=== PATIENT | female | born 1935 | race Caucasian/White ===

== ENCOUNTER 2016-04-15 02:18 | Emergency (ER) | payer MEDICARE, OTHER ==
[2016-04-15 02:28] VITALS: TEMP 97.2
[2016-04-15] MEDS ORDERED: FAMOTIDINE 20 MG/2 ML VIAL IV STA (02:38)
[2016-04-15] MEDS ORDERED: ONDANSETRON 4 MG/2 ML VIAL IVP STA ×2 (02:38→03:52)
[2016-04-15] MEDS ORDERED: ACETAMINOPHEN IV (For NPO) 1,000 MG in EMPTY BAG 1 BAG IVPB STA (02:38)
[2016-04-15] MEDS ORDERED: SODIUM CHLORIDE 0.9% 1,000 ML IV STA (02:38)
--- NOTE | 2016-04-15 02:41 | ED ---
Nausea/Vomiting/Diarrhea HPI - General Chief complaint: Nausea/Vomiting/Diarrhea Stated complaint: vomiting,viral infection Time Seen by Provider: 04/15/16 02:31 Source: patient, family, RN notes reviewed Mode of arrival: ambulatory Limitations: no limitations - History of Present Illness Initial comments: 80-year-old female presents emergency Department chief complaint nausea vomiting 2 days. Patient saw her her primary care physician this past afternoon who told her was a viral stomach issue. Patient was advised, emergency Department if her symptoms persisted. Patient states that she does have some right-sided abdominal discomfort. Patient did admit to having previous symptoms in the past summer this. Patient denies fever, chills. Patient denies any dysuria, hematuria, diarrhea or constipation. She states she 's had regular bowel movement yesterday. Patient did admit to a prior appendectomy, hysterectomy, aortic aneurysm surgery. Patient states nothing seems to make in the symptoms are better at this time. Patient denies any contacts with some symptoms. Patient denies chest pain, shortness of breath. - Related Data Home Medications Medication Instructions Recorded Confirmed diphenhydrAMINE [Benadryl] 25 mg PO Q12H PRN 06/23/14 10/28/15 Albuterol Inhaler [Ventolin Hfa 1 - 2 puff INHALATION RT-Q6H PRN 09/28/15 Inhaler] Tolterodine [Detrol] 2 mg PO HS 09/28/15 10/28/15 Docusate [Colace] 100 mg PO BID 10/28/15 10/28/15 Fluticasone/Vilanterol [Breo 1 puff INHALATION RT-DAILY PRN 10/28/15 10/28/15 Ellipta 100-25 Mcg Inhaler] Previous Rx's Medication Instructions Recorded Acetaminophen Tab [Tylenol] 650 mg PO Q6HR PRN #0 tab 10/02/15 Aspirin 325 mg PO BID #60 tab 10/02/15 Famotidine [Pepcid] 20 mg PO DAILY #30 tablet 10/02/15 HYDROcodone/APAP 7.5-325MG [[place] 1 tab PO Q6HR PRN #28 tab 11/02/15 7.5-325] Levofloxacin [Levaquin] 500 mg PO Q24H #10 tab 11/02/15 Mag Hydrox/Al Hydrox/Simeth 30 ml PO Q4HR PRN #0 cup 11/02/15 [Maalox] Temazepam [Restoril] 15 mg PO HS #7 cap 11/02/15 metroNIDAZOLE [Flagyl] 500 mg PO TID #30 tab 11/02/15 Ondansetron Odt [Zofran Odt] 4 mg PO Q8HR PRN #10 tab 04/15/16 Allergies Allergy/AdvReac Type Severity Reaction Status Date / Time gluten Allergy Unknown Verified 10/28/15 15:06 codeine AdvReac Nausea & Verified 10/28/15 15:38 Vomiting Review of Systems ROS Statement: Those systems with pertinent positive or pertinent negative responses have been documented in the HPI. ROS Other: All systems not noted in ROS Statement are negative. Past Medical History Past Medical History: Cancer, COPD, GERD/Reflux, Musculoskeletal Disorder, Neurologic Disorder, Osteoarthritis (OA), Pneumonia, Rheumatoid Arthritis (RA) Additional Past Medical History / Comment(s): 09-28-15 FALL/LT HIP FX. 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, diverticulosis, squamous cell skin ca.uti History of Any Multi-Drug Resistant Organisms: None Reported Past Surgical History: Appendectomy, Hysterectomy Additional Past Surgical History / Comment(s): brain aneursym with surgery and angioplasty, aaa repair also, jani cataract(last 09/04/14), skin ca removed, lt breast bx and cyst removed, d&c, colonoscopy, 09-30-15 orif lt hip Past Anesthesia/Blood Transfusion Reactions: No Reported Reaction Past Psychological History: No Psychological Hx Reported Additional Psychological History / Comment(s): PT usually lives AT HOME WITH HER biut has been at [facility] for rehab since recent hip sx. ptr stated only has toe touch orders on LEFT, GETTING PT- USES A WALKER . Smoking Status: Former smoker Past Alcohol Use History: None Reported Additional Past Alcohol Use History / Comment(s): smoked x 30 years 1/2 ppd, quit 24 years ago Past Drug Use History: None Reported - Past Family History Mother Additional Family Medical History / Comment(s): BOWEL PROBLEMS/DIVERTICULAR DIEASE. LIVED TO BE 96 YEARS OLD Father History Unknown: Yes Additional Family Medical History / Comment(s): IN HIS SLEEEP AT AGE 86 Brother(s) Family Medical History: Cancer Additional Family Medical History / Comment(s): THROAT CANCER General Exam Limitations: no limitations General appearance: alert, in no apparent distress Head exam: Present: atraumatic, normocephalic, normal inspection Eye exam: Present: normal appearance, PERRL, EOMI. Absent: scleral icterus, conjunctival injection, periorbital swelling ENT exam: Present: mucous membranes moist Respiratory exam: Present: normal lung sounds bilaterally. Absent: respiratory distress, wheezes, rales, rhonchi, stridor Cardiovascular Exam: Present: regular rate, normal rhythm, normal heart sounds. Absent: systolic murmur, diastolic murmur, rubs, gallop, clicks GI/Abdominal exam: Present: soft, tenderness (Minimal tenderness right side of the abdomen), normal bowel sounds. Absent: distended, guarding, rebound, rigid Back exam: Absent: CVA tenderness (R), CVA tenderness (L) Neurological exam: Present: alert, oriented X3, CN II-XII intact Skin exam: Present: warm, dry, intact, normal color. Absent: rash Course Vital Signs 04/15/16 02:26 Temperature 97.2 F L Pulse Rate 81 Respiratory 20 Rate Blood Pressure 161/87 O2 Sat by Pulse 97 Oximetry Medical Decision Making - Medical Decision Making 80-year-old female presented for nausea vomiting 2 days. Patient seen primary care physician today who advised: Reports from symptoms worsen. Patient's lab work reviewed no acute changes. Patient does have 10 white cells in the urine. Patient's urine will be cultured as she has no symptoms at this time. Patient symptoms are most likely viral nature. Return parameters were discussed. - Lab Data Result diagrams: 04/15/16 03:00 04/15/16 03:00 Lab Results 04/15/16 04/15/16 04/15/16 Range/Units 03:00 03:00 03:00 WBC 6.9 (3.8-10.6) k/uL RBC 4.66 (3.80-5.40) m/uL Hgb 13.8 (11.4-16.0) gm/dL Hct 42.7 (34.0-46.0) % MCV 91.6 (80.0-100.0) fL MCH 29.5 (25.0-35.0) pg MCHC 32.2 (31.0-37.0) g/dL RDW 13.3 (11.5-15.5) % Plt Count 273 (150-450) k/uL Neutrophils % 79 % Lymphocytes % 13 % Monocytes % 6 % Eosinophils % 1 % Basophils % 0 % Neutrophils # 5.5 (1.3-7.7) k/uL Lymphocytes # 0.9 L (1.0-4.8) k/uL Monocytes # 0.4 (0-1.0) k/uL Eosinophils # 0.1 (0-0.7) k/uL Basophils # 0.0 (0-0.2) k/uL Sodium 140 (137-145) mmol/L Potassium 4.5 (3.5-5.1) mmol/L Chloride 105 (98-107) mmol/L Carbon Dioxide 23 (22-30) mmol/L Anion Gap 12 mmol/L BUN 27 H (7-17) mg/dL Creatinine 1.10 H (0.52-1.04) mg/dL Est GFR (MDRD) Af Amer 58 (>60 ml/min/1.73 sqM) Est GFR (MDRD) Non-Af 48 (>60 ml/min/1.73 sqM) Glucose 126 H (74-99) mg/dL Calcium 9.8 (8.4-10.2) mg/dL Total Bilirubin 0.7 (0.2-1.3) mg/dL AST 30 (14-36) U/L ALT 29 (9-52) U/L Alkaline Phosphatase 93 (38-126) U/L Total Protein 7.8 (6.3-8.2) g/dL Albumin 4.2 (3.5-5.0) g/dL Amylase 89 (30-110) U/L Lipase 61 (23-300) U/L Urine Color Yellow Urine Appearance Clear (Clear) Urine pH 6.5 (5.0-8.0) Ur Specific [place] 1.015 (1.001-1.035) Urine Protein 1+ H (Negative) Urine Glucose (UA) Negative (Negative) Urine Ketones Trace H (Negative) Urine Blood Trace H (Negative) Urine Nitrate Negative (Negative) Urine Bilirubin Negative (Negative) Urine Urobilinogen <2.0 (<2.0) mg/dL Ur Leukocyte Esterase Small H (Negative) Urine RBC 3 (0-5) /hpf Urine WBC 10 H (0-5) /hpf Ur Squamous Epith Cells 1 (0-4) /hpf Urine Bacteria Rare H (None) /hpf Hyaline Casts 2 (0-2) /lpf Urine Mucus Rare H (None) /hpf Disposition Clinical Impression: Nausea & vomiting, Constipation Disposition: HOME SELF-CARE Condition: Stable Instructions: Acute Nausea and Vomiting (ED) Additional Instructions: Please return to the Emergency Department if symptoms worsen or any other concerns. Prescriptions: Ondansetron Odt [Zofran Odt] 4 mg PO Q8HR PRN #10 tab PRN Reason: Nausea Time of Disposition: 03:56
[2016-04-15 03:20] LABS: Basophils % (A) 0 %; CH 30.3; CHCM 33.2; Eosinophils # (A) 0.1 k/uL (0-0.7); Eosinophils % (A) 1 %; HCT 42.7 % (34.0-46.0); HGB 13.8 gm/dL (11.4-16.0); Luc # (Auto) 0.08; Luc % (Auto) 1; Lymphocytes # (A) 0.9 k/uL (1.0-4.8); Lymphocytes % (A) 13 %; MCH 29.5 pg (25.0-35.0); MCHC 32.2 g/dL (31.0-37.0); MCV 91.6 fL (80.0-100.0); Mean Platelet Volume 6.4; Monocytes # (A) 0.4 k/uL (0-1.0); Monocytes % (A) 6 %; Neutrophils # (A) 5.5 k/uL (1.3-7.7); Neutrophils % (A) 79 %; RBC 4.66 m/uL (3.80-5.40); RDW 13.3 % (11.5-15.5); WBC 6.9 k/uL (3.8-10.6); WBC (Perox) 7.42
[2016-04-15 03:21] LABS: Appearance,Urine Clear (Clear); Bacteria,Urine Rare /hpf; Bilirubin,Urine Negative (Negative); Glucose,Urine (UA) Negative (Negative); Ketones,Urine Trace (Negative); Leukocyte Esterase,Urine Small (Negative); Mucus,Urine Rare /hpf; Nitrite,Urine Negative (Negative); PH, Urine 6.5 (5.0-8.0); Particle Count 1642; Protein,Urine 1+ (Negative); RBC,Urine 3 /hpf (0-5); Specific Gravity,Urine 1.015 (1.001-1.035); Squamous Epithelial Cell,Urine 1 /hpf (0-4); UA Billing (MACRO vs. MICRO) MICRO; Urobilinogen,Urine <2.0 mg/dL (<2.0); WBC,Urine 10 /hpf (0-5)
[2016-04-15 03:24] LABS: Calcium 9.8 mg/dL (8.4-10.2); Potassium 4.5 mmol/L (3.5-5.1); Total Bilirubin 0.7 mg/dL (0.2-1.3); Total Protein 7.8 g/dL (6.3-8.2)
--- NOTE | 2016-04-15 03:36 | XR ---
EXAMINATION TYPE: XR KUB DATE OF EXAM: 04/15/2016 3:28 AM COMPARISON: 10/31/2015 HISTORY: Nausea and vomiting and diarrhea TECHNIQUE: 2 views FINDINGS: There is no sign of intestinal obstruction or pneumoperitoneum. Fecal pattern is normal. Th ere is no sign of a mass. There are no pathologic calcifications over the kidneys. Lung bases are lj ar of consolidation. IMPRESSION: Nonacute abdomen. No change.
[2016-04-15] MEDS ORDERED: MORPHINE SULFATE 4 MG/ML SYRINGE IVP STA (03:52)
[2016-04-15] MEDS ORDERED: METOCLOPRAMIDE 5 MG/ML 2 ML VIAL IVP STA (03:53)
[2016-04-15] MEDS ORDERED: SODIUM CHLORIDE 0.9% 1,000 ML IV ONE (03:53)
[2016-04-15 04:16] VITALS: PULSE 70; RESP 14
[2016-04-15 05:11] VITALS: BP 140/80
== END 2016-04-15 05:48 | disposition home or self-care (01) ==
LOC: EC 02:18
DX: R11.2 Nausea with vomiting, unspecified (principal); K59.00 Constipation, unspecified; J44.9 Chronic obstructive pulmonary disease, unspecified; M06.9 Rheumatoid arthritis, unspecified; K21.9 Gastro-esophageal reflux disease without esophagitis; M19.90 Unspecified osteoarthritis, unspecified site; Z79.82 Long term (current) use of aspirin; Z79.51 Long term (current) use of inhaled steroids; Z79.899 Other long term (current) drug therapy; Z87.891 Personal history of nicotine dependence
CPT/HCPCS: 36415; 80053; 82150; 83690; 85025; 81001; 74000; 99284; 96374; 96375 ×4; 96376; J2270; J2765; J2405; J0131

== ENCOUNTER → 2016-10-07 | Outpatient (CLI) | payer MEDICARE, OTHER ==
--- NOTE | 2016-10-07 12:24 | FL ---
EXAMINATION TYPE: FL barium swallow w video DATE OF EXAM: 10/07/2016 MODIFIED SWALLOW / DEGLUTITION STUDY CLINICAL HISTORY: 81-year-old female with dysphagia, trouble swallowing. Prior intracranial aneurysm with coiling. TECHNIQUE: Deglutition study is performed utilizing thin liquid barium, honey and nectar thick liqui d barium, barium thick applesauce, and barium coated cracker. COMPARISON: None. FINDINGS: The oral and pharyngeal phases show satisfactory initiation and propagation with all modalities teste d. Normal mastication is seen with solid modalities tested though the patient is partially dentulous . Mild intermittent cricopharyngeus spasm being is noted. In addition, there is anterior cervical spo ndylosis along with grade 1 anterolisthesis at C3-C4 and C4-C5. There is no evidence of penetration o r aspiration with any modality tested. No significant pharyngeal residue was appreciated. IMPRESSION: 1. No penetration or aspiration seen. 2. Mild intermittent CP spasming along with multilevel cervical spondylosis. 3. Please refer to speech therapist notes for further details if necessary.
== END | disposition home or self-care (01) ==
LOC: RADFLMAIN 11:34
PROVIDERS: ATTEND Family Medicine
DX: R13.10 Dysphagia, unspecified (principal)
CPT/HCPCS: 74230

== ENCOUNTER 2017-01-04 08:51 | Emergency (ER) | payer MEDICARE, OTHER ==
--- NOTE | 2017-01-04 09:21 | ED ---
Fall HPI - General Chief Complaint: Fall Stated Complaint: Fall-Pelvis Pain Time Seen by Provider: 01/04/17 09:04 Source: patient, RN notes reviewed Mode of arrival: wheelchair Limitations: no limitations - History of Present Illness Initial Comments: 81-year-old female presents emergency Department chief complaint of fall. Patient states she fell on Monday because she tripped and lost her balance. Patient states that she fell in the kitchen. She thought her left side and she' s had a prior pelvis fracture. She states she does feel pulse exactly the same. Patient denies any head injury no LOC. She states she has a small abrasion to her right elbow with no discomfort. Patient states she was easily intubated is very sore. - Related Data Home Medications Medication Instructions Recorded Confirmed diphenhydrAMINE [Benadryl] 25 mg PO BID 06/23/14 01/04/17 Tiotropium 18 Mcg/Puff [Spiriva] 1 cap INHALATION RT-DAILY 01/04/17 01/04/17 Previous Rx's Medication Instructions Recorded Temazepam [Restoril] 15 mg PO HS #7 cap 11/02/15 Allergies Allergy/AdvReac Type Severity Reaction Status Date / Time gluten Allergy Unknown Verified 01/04/17 09:29 codeine AdvReac Nausea & Verified 01/04/17 09:29 Vomiting Review of Systems ROS Statement: Those systems with pertinent positive or pertinent negative responses have been documented in the HPI. ROS Other: All systems not noted in ROS Statement are negative. Past Medical History Past Medical History: Cancer, COPD, GERD/Reflux, Musculoskeletal Disorder, Neurologic Disorder, Osteoarthritis (OA), Pneumonia, Rheumatoid Arthritis (RA) Additional Past Medical History / Comment(s): 09-28-15 FALL/LT HIP FX. 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, diverticulosis, squamous cell skin ca.uti History of Any Multi-Drug Resistant Organisms: None Reported Past Surgical History: Appendectomy, Hysterectomy Additional Past Surgical History / Comment(s): brain aneursym with surgery and angioplasty, aaa repair also, jani cataract(last 09/04/14), skin ca removed, lt breast bx and cyst removed, d&c, colonoscopy, 09-30-15 orif lt hip Past Anesthesia/Blood Transfusion Reactions: No Reported Reaction Past Psychological History: No Psychological Hx Reported Smoking Status: Former smoker Past Alcohol Use History: None Reported Past Drug Use History: None Reported - Past Family History Mother Additional Family Medical History / Comment(s): BOWEL PROBLEMS/DIVERTICULAR DIEASE. LIVED TO BE 96 YEARS OLD Father History Unknown: Yes Additional Family Medical History / Comment(s): IN HIS SLEEEP AT AGE 86 Brother(s) Family Medical History: Cancer Additional Family Medical History / Comment(s): THROAT CANCER General Exam Limitations: physical limitation General appearance: alert, in no apparent distress Neck exam: Present: normal inspection, full ROM. Absent: tenderness, meningismus, lymphadenopathy Respiratory exam: Present: normal lung sounds bilaterally. Absent: respiratory distress, wheezes, rales, rhonchi, stridor Cardiovascular Exam: Present: regular rate, normal rhythm, normal heart sounds. Absent: systolic murmur, diastolic murmur, rubs, gallop, clicks GI/Abdominal exam: Present: soft, normal bowel sounds. Absent: distended, tenderness, guarding, rebound, rigid Extremities exam: Present: other (Small abrasion to the right elbow with no tenderness and full range of motion. There is mild dorsal left side of the pelvis left hip region mild discomfort with logroll there is no shortening or rotation neurovascular intact lower extremities) Back exam: Present: full ROM. Absent: tenderness Neurological exam: Present: alert, oriented X3, CN II-XII intact, reflexes normal. Absent: motor sensory deficit Course Vital Signs 01/04/17 08:59 Temperature 97.5 F L Pulse Rate 90 Respiratory 20 Rate Blood Pressure 129/85 O2 Sat by Pulse 96 Oximetry Medical Decision Making - Medical Decision Making 81-year-old female presented emergency from for left hip pain. Patient had a fall. There is no acute fractures or old surgical fixation noted. Patient will follow-up with primary physician and orthopedic doctor. Return parameters were discussed. Disposition Clinical Impression: Fall, Contusion, hip, Elbow abrasion Disposition: HOME SELF-CARE Condition: Stable Instructions: Contusion in Adults (ED) Additional Instructions: Please return to the Emergency Department if symptoms worsen or any other concerns. Referrals: Justyn Johnson DO [Primary Care Provider] - 1-2 days Time of Disposition: 10:10
--- NOTE | 2017-01-04 09:28 | XR ---
EXAMINATION TYPE: XR Hip LT and AP Pelvis DATE OF EXAM: 01/04/2017 COMPARISON: 09/27/2016 HISTORY: Left hip pain after fall 2 days ago TECHNIQUE: A single AP view of the pelvis is obtained. Two views of the left hip are obtained. FINDINGS: There is no acute fracture/dislocation evident in the pelvis. The hip and sacroiliac join ts appear symmetric and unremarkable. The overlying soft tissue appears unremarkable. Two views of left hip show no acute fracture or dislocation. There is redemonstration of 3 subtle med ullary rods transfixing a previously seen left femoral neck fracture. No hardware fracture, surroundi ng lucency, or new osseous fracture is seen. There is also redemonstration of an unchanged fracture o f the inferior left pubic ramus in comparison to exam of 09/28/2015. Bilateral femoral acetabular oste oarthropathy, left greater than right is demonstrated as subchondral cysts, acetabular sclerosis and joint space narrowing. Degenerative changes are also seen at the lumbosacral junction and sacroiliac joints. No focal lytic or sclerotic lesion seen in the proximal left femur. The overlying soft tiss ue is unremarkable. IMPRESSION: 1. There is no acute fracture or dislocation in the pelvis or left hip. 2. Old healed and surgically fixated fractures of the inferior left pubic ramus and left femoral neck . 3. Bilateral femoral acetabular osteoarthropathy, left greater than right, at least moderate in degre e.
[2017-01-04 10:31] VITALS: BP 150/85; PULSE 89; RESP 18; TEMP 98
== END 2017-01-04 10:31 | disposition home or self-care (01) ==
LOC: EC 08:51
DX: S70.02XA Contusion of left hip, initial encounter (principal); S50.311A Abrasion of right elbow, initial encounter; J44.9 Chronic obstructive pulmonary disease, unspecified; Z85.828 Personal history of other malignant neoplasm of skin; Z87.891 Personal history of nicotine dependence; Z79.899 Other long term (current) drug therapy; Z88.5 Allergy status to narcotic agent; Z91.018 Allergy to other foods; Y92.090 Kitchen in other non-institutional residence as the place of occurrence of the external cause; W01.0XXA Fall on same level from slipping, tripping and stumbling without subsequent striking against object, initial encounter
CPT/HCPCS: 73502; 99283

== ENCOUNTER → 2017-04-06 | Outpatient (CLI) | payer MEDICARE ==
--- NOTE | 2017-04-06 15:45 | CT ---
EXAMINATION TYPE: CT brain wo con DATE OF EXAM: 04/06/2017 COMPARISON: 08/15/2015 INDICATION: Unsteady gait with falls. DLP: 1045.4 mGycm, Automated exposure control for dose reduction was used. CONTRAST: None CT of the brain is performed utilizing 3 mm thick sections through the posterior fossa and 3 mm thick sections through the remaining calvarium. Study is performed within 24 hours of arrival to the hosp ital. Postcraniotomy changes are evident in the right temporal region and right frontal parietal regions. There is beam hardening artifact from a aneurysm clip within the central region. This was present pre viously. No abnormal hyperdensity is present to suggest an acute intracranial hemorrhage. No mass lesion is evident. No acute infarcts are evident. Periventricular white matter hypodensity is present, likely on the bas is of chronic white matter ischemic changes. The pattern and distribution is similar to 08/15/2015. Ventricles and sulci are mildly prominent. for the patient age. Paranasal sinuses and mastoid air cells within the [id number] are clear. IMPRESSIONS: 1. Postsurgical changes including aneurysm clip and craniotomy defects, stable from 2016. 2. Periventricular white matter hypodensity, likely on the basis of chronic white matter ischemic brian nges.
== END | disposition home or self-care (01) ==
LOC: RADCTMAIN 14:53
PROVIDERS: ATTEND Family Medicine
DX: R90.82 White matter disease, unspecified (principal); R93.0 Abnormal findings on diagnostic imaging of skull and head, not elsewhere classified; Z98.890 Other specified postprocedural states
CPT/HCPCS: 70450

== ENCOUNTER 2017-05-30 09:32 | Emergency (ER) | payer MEDICARE ==
--- NOTE | 2017-05-30 10:33 | ED ---
General Adult HPI - General Chief complaint: Extremity Problem,Nontraumatic Stated complaint: Leg pain/numbness rt arm Time Seen by Provider: 05/30/17 10:01 Source: patient, family Mode of arrival: wheelchair - History of Present Illness Initial comments: 81-year-old female presents with for lower extremity pain x 1 year. She notices the pain after walking for 15 minutes, which has been worsening in the past few months. Laying in bed, she has no pain right now. She was diagnosed with PAD by her head animal keeper. This issue seemed to start when she left PT rehab for bilateral hip fractures a year ago but has become progressively worse in the past 3 months. She is also complaining of a numbness feeling in the right arm which has been present x 2 days. She has full strength, ROM, and sensation other than the numb feeling. She often has numbness in the upper extremities with activity. She also has extensive spinal history including buldging discs and spinal stenosis. All doctor podiatric medicine intact. - Related Data Home Medications Medication Instructions Recorded Confirmed diphenhydrAMINE [Benadryl] 25 mg PO BID 06/23/14 05/30/17 Tiotropium 18 Mcg/Puff [Spiriva] 1 cap INHALATION RT-DAILY PRN 01/04/17 05/30/17 Previous Rx's Medication Instructions Recorded Temazepam [Restoril] 15 mg PO HS #7 cap 11/02/15 Allergies Allergy/AdvReac Type Severity Reaction Status Date / Time gluten Allergy Unknown Verified 05/30/17 10:01 codeine AdvReac Nausea & Verified 05/30/17 10:01 Vomiting Review of Systems ROS Statement: Those systems with pertinent positive or pertinent negative responses have been documented in the HPI. ROS Other: All systems not noted in ROS Statement are negative. Past Medical History Past Medical History: Cancer, COPD, GERD/Reflux, Musculoskeletal Disorder, Neurologic Disorder, Osteoarthritis (OA), Pneumonia, Rheumatoid Arthritis (RA) Additional Past Medical History / Comment(s): 09-28-15 FALL/LT HIP FX. 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, diverticulosis, squamous cell skin ca.uti History of Any Multi-Drug Resistant Organisms: None Reported Past Surgical History: Appendectomy, Hysterectomy Additional Past Surgical History / Comment(s): brain aneursym with surgery and angioplasty, aaa repair also, jani cataract(last 09/04/14), skin ca removed, lt breast bx and cyst removed, d&c, colonoscopy, 09-30-15 orif lt hip Past Anesthesia/Blood Transfusion Reactions: No Reported Reaction Past Psychological History: No Psychological Hx Reported Smoking Status: Former smoker Past Alcohol Use History: None Reported Past Drug Use History: None Reported - Past Family History Mother Additional Family Medical History / Comment(s): BOWEL PROBLEMS/DIVERTICULAR DIEASE. LIVED TO BE 96 YEARS OLD Father History Unknown: Yes Additional Family Medical History / Comment(s): IN HIS SLEEEP AT AGE 86 Brother(s) Family Medical History: Cancer Additional Family Medical History / Comment(s): THROAT CANCER General Exam Limitations: no limitations General appearance: alert, in no apparent distress Head exam: Present: atraumatic Eye exam: Present: normal appearance, PERRL, EOMI. Absent: scleral icterus, conjunctival injection, periorbital swelling ENT exam: Present: normal exam, mucous membranes moist Respiratory exam: Present: normal lung sounds bilaterally. Absent: respiratory distress, wheezes, rales, rhonchi, stridor Cardiovascular Exam: Present: regular rate, normal rhythm, normal heart sounds. Absent: systolic murmur, diastolic murmur, rubs, gallop, clicks Extremities exam: Present: tenderness (tenderness in BLE with palpation), normal capillary refill, calf tenderness. Absent: pedal edema, joint swelling Neurological exam: Present: alert, oriented X3, CN II-XII intact Psychiatric exam: Present: normal affect, normal mood Course Vital Signs 05/30/17 05/30/17 09:36 10:54 Temperature 97.1 F L Pulse Rate 96 69 Respiratory 18 16 Rate Blood Pressure 156/77 151/80 O2 Sat by Pulse 96 96 Oximetry Medical Decision Making - Medical Decision Making 81 -year-old female presents for bilateral lower extremity pain with activity. She is currently comfortable with no pain while lying on the bed. This pain has been ongoing and worsening for the past 3 months. Attempted to locate lower extremity pulses with Doppler with little success. Dr. Wilson was consulted and said this could be due to chronic pathology of peripheral artery disease. Basic labs to determine GFR for ordering a CTA. GFR was insufficient to perform CTA. Dr. Young was consulted and said to have the patient come to Dr. Frazier office from the ER. - Lab Data Result diagrams: 05/30/17 10:45 05/30/17 10:45 Lab Results 05/30/17 05/30/17 Range/Units 10:45 10:45 WBC 6.4 (3.8-10.6) k/uL RBC 4.26 (3.80-5.40) m/uL Hgb 11.5 (11.4-16.0) gm/dL Hct 36.5 (34.0-46.0) % MCV 85.9 (80.0-100.0) fL MCH 27.0 (25.0-35.0) pg MCHC 31.5 (31.0-37.0) g/dL RDW 13.7 (11.5-15.5) % Plt Count 394 (150-450) k/uL Neutrophils % 62 % Lymphocytes % 26 % Monocytes % 7 % Eosinophils % 4 % Basophils % 0 % Neutrophils # 3.9 (1.3-7.7) k/uL Lymphocytes # 1.7 (1.0-4.8) k/uL Monocytes # 0.5 (0-1.0) k/uL Eosinophils # 0.2 (0-0.7) k/uL Basophils # 0.0 (0-0.2) k/uL Sodium 142 (137-145) mmol/L Potassium 5.0 (3.5-5.1) mmol/L Chloride 106 (98-107) mmol/L Carbon Dioxide 25 (22-30) mmol/L Anion Gap 11 mmol/L BUN 34 H (7-17) mg/dL Creatinine 1.35 H (0.52-1.04) mg/dL Est GFR (MDRD) Af Amer 46 (>60 ml/min/1.73 sqM) Est GFR (MDRD) Non-Af 38 (>60 ml/min/1.73 sqM) Glucose 93 (74-99) mg/dL Calcium 9.8 (8.4-10.2) mg/dL Total Bilirubin 0.3 (0.2-1.3) mg/dL AST 30 (14-36) U/L ALT 23 (9-52) U/L Alkaline Phosphatase 101 (38-126) U/L Total Protein 7.9 (6.3-8.2) g/dL Albumin 3.8 (3.5-5.0) g/dL Disposition Clinical Impression: PAD (peripheral artery disease) Disposition: HOME SELF-CARE Instructions: Peripheral Artery Disease (ED) Referrals: Justyn Johnson DO [Primary Care Provider] - 1-2 days Time of Disposition: 13:15
[2017-05-30] MEDS ORDERED: SODIUM CHLORIDE 0.9% 500 ML IV STA (10:49)
[2017-05-30 11:02] LABS: Basophils % (A) 0 %; Eosinophils # (A) 0.2 k/uL (0-0.7); Eosinophils % (A) 4 %; HCT 36.5 % (34.0-46.0); HGB 11.5 gm/dL (11.4-16.0); Lymphocytes # (A) 1.7 k/uL (1.0-4.8); Lymphocytes % (A) 26 %; MCHC 31.5 g/dL (31.0-37.0); MCV 85.9 fL (80.0-100.0); Mean Platelet Volume 6.6; Monocytes # (A) 0.5 k/uL (0-1.0); Monocytes % (A) 7 %; Neutrophils # (A) 3.9 k/uL (1.3-7.7); Neutrophils % (A) 62 %; Platelet Count 394 k/uL (150-450); RBC 4.26 m/uL (3.80-5.40); RDW 13.7 % (11.5-15.5); WBC 6.4 k/uL (3.8-10.6)
[2017-05-30 11:17] LABS: Albumin 3.8 g/dL (3.5-5.0); Calcium 9.8 mg/dL (8.4-10.2); Total Bilirubin 0.3 mg/dL (0.2-1.3); Total Protein 7.9 g/dL (6.3-8.2)
[2017-05-30 13:24] VITALS: BP 143/75; PULSE 78; RESP 18; TEMP 97.3
== END 2017-05-30 13:28 | disposition home or self-care (01) ==
LOC: EC 09:32
DX: I73.9 Peripheral vascular disease, unspecified (principal); Z85.828 Personal history of other malignant neoplasm of skin; Z87.891 Personal history of nicotine dependence; Z79.899 Other long term (current) drug therapy; Z88.5 Allergy status to narcotic agent; Z88.8 Allergy status to other drugs, medicaments and biological substances
CPT/HCPCS: 36415; 80053; 85025; 96360; 99283

== ENCOUNTER 2017-06-13 08:02 | Day surgery (SDC) | payer MEDICARE ==
[2017-06-08 08:50] VITALS: BMI 19.5
[~2017-06-13 08:02] MED LIST: ALPRAZolam 0.25 MG TAB PO PRN; ASPIRIN 325 MG TAB PO STA; SODIUM CHLORIDE 0.9% 1,000 ML in EMPTY BAG 1 BAG IV ONE
[2017-06-13 08:31] VITALS: PULSE 85; RESP 20; TEMP 97.6
[2017-06-13] MEDS ORDERED: MIDAZOLAM 2 MG/2 ML VIAL IV ONE (10:23)
[2017-06-13] MEDS ORDERED: MORPHINE SULFATE 4 MG/ML SYRINGE IV ONE (10:23)
[2017-06-13] MEDS ORDERED: LIDOCAINE 2% INJ 20 MG/ML SQ ONE (10:25)
[2017-06-13] MEDS ORDERED: SODIUM CHLORIDE 0.9% 1,000 ML IV ONE (10:29)
[2017-06-13] MEDS ORDERED: IODIXANOL 320 MG/ML 100 ML INTRAARTER ONE (10:39)
[2017-06-13] MEDS ORDERED: SODIUM CHLORIDE 0.9% 1,000 ML IV SCH (11:30)
--- NOTE | 2017-06-13 11:31 | P.OP ---
Date of Procedure: 06/13/17 Preoperative Diagnosis: Disabling claudication bilateral lower extremities Postoperative Diagnosis: Same Procedure(s) Performed: Aortogram with bilateral lower extremity runoff under ultrasound guided femoral access Anesthesia: local Surgeon: Gray Martin Estimated Blood Loss (ml): 5 Pathology: none sent Condition: stable Disposition: other Indications for Procedure: This is a 81-year-old female with history of chronic back issues presented to the office with complaints of increased lower extremity pain especially with ambulation which was different from her previous pain in her back. She states this has been ongoing and worsening over the last several years and wants some kind of intervention to help with the pain. She underwent arterial Doppler which demonstrated noncompressibility of the vessels. Due to her complaints of pain with ambulation especially in the thighs and lower legs after only 100-200 yards it was determined she needed a aortogram with runoff to further delineate any vascular issues. Operative Findings: Aorta: Patent without evidence of atherosclerotic disease. Iliac: Bilateral iliacs are patent without evidence of atherosclerotic disease or stenosis. Femoral: Bilateral common, superficial and profunda arteries were patent with minimal evidence of atherosclerotic disease without stenosis. Popliteal: Bilateral popliteal arteries are patent without any evidence of stenosis or atherosclerotic disease. Tibial: Bilateral TPT trunk and anterior and posterior tibial arteries were patent with two-vessel runoff to the ankles and feet. Description of Procedure: After written informed consent was obtained the patient all risks benefits competitions were described patient was brought to the [employer] and laid in a supine position. The area of the groins were prepped and draped in usual sterile fashion. Timeout was performed and all fashion with all parties in agreement. Utilizing ultrasound right common femoral artery was visualized and shown to be patent with minimal disease. Patient was administered local anesthetic overlying the common femoral artery along with Versed and morphine for moderate sedation. Utilizing a multipurpose needle the artery was cannulated under direct visualization of ultrasound and utilizing Seldinger technique a 5-Thai sheath was placed in normal fashion. Guidewire was then placed into the aorta followed by a pigtail catheter. Aortogram was then obtained followed by runoffs down the legs. Once completed pigtail catheter was removed as well as the sheath and pressure was placed for hemostasis. Hemostasis was assured. The area was cleansed and dressings were placed. Patient tolerated the procedure well and was sent to PACU for recovery. Plan - Discharge Summary Discharge Rx Participant: No New Discharge Prescriptions: No Action diphenhydrAMINE [Benadryl] 25 mg PO BID Temazepam [Restoril] 15 mg PO HS #7 cap Tiotropium 18 Mcg/Puff [Spiriva] 1 cap INHALATION RT-DAILY PRN PRN Reason: Shortness Of Breath Discharge Medication List diphenhydrAMINE [Benadryl] 25 mg PO BID 06/23/14 [History] Temazepam [Restoril] 15 mg PO HS #7 cap 11/02/15 [Rx] Tiotropium 18 Mcg/Puff [Spiriva] 1 cap INHALATION RT-DAILY PRN 01/04/17 [History ] Follow up Appointment(s)/Referral(s): Gray Martin DO [STAFF PHYSICIAN] - 1 Week Justyn Johnson DO [Primary Care Provider] - 1 Week Discharge Disposition: HOME SELF-CARE
[2017-06-13] MEDS ORDERED: NAPROXEN 250 MG TAB PO STA (11:33)
[2017-06-13 11:55] LABS: Glucose,Whole Blood 87 mg/dL (75-99)
--- NOTE | 2017-06-13 13:11 | IR ---
EXAMINATION TYPE: IR angio abdominal w runoff DATE OF EXAM: 06/13/2017 COMPARISON: NONE HISTORY: Arteriogram. Fluoroscopy was provided to the referring clinician. 0.7 minutes provided.
[2017-06-13 17:30] VITALS: BP 142/62
== END 2017-06-13 16:30 | disposition home or self-care (01) ==
LOC: CATHCVL 08:02
PROVIDERS: ATTEND Surgery
DX: I70.213 Atherosclerosis of native arteries of extremities with intermittent claudication, bilateral legs (principal); J44.9 Chronic obstructive pulmonary disease, unspecified; I10 Essential (primary) hypertension; N28.9 Disorder of kidney and ureter, unspecified; M81.0 Age-related osteoporosis without current pathological fracture; G20 Parkinson's disease; M06.9 Rheumatoid arthritis, unspecified; Z87.891 Personal history of nicotine dependence; Z79.899 Other long term (current) drug therapy; Z88.5 Allergy status to narcotic agent; Z91.018 Allergy to other foods
CPT/HCPCS: 36200; 75625; 75716; 76937; C1769 ×3; C1894; J2001; J2250; J2270; Q9967

== ENCOUNTER → 2017-08-08 | Outpatient (CLI) | payer MEDICARE ==
[2017-08-08 11:18] LABS: HCT 40.9 % (34.0-46.0); HGB 12.7 gm/dL (11.4-16.0); MCH 26.7 pg (25.0-35.0); MCHC 31.1 g/dL (31.0-37.0); MCV 85.8 fL (80.0-100.0); Mean Platelet Volume 6.5; Platelet Count 386 k/uL (150-450); RBC 4.76 m/uL (3.80-5.40); RDW 14.1 % (11.5-15.5); WBC 6.9 k/uL (3.8-10.6)
== END | disposition home or self-care (01) ==
LOC: LABWHC1 10:55
PROVIDERS: ATTEND Physician Assistant
DX: M43.16 Spondylolisthesis, lumbar region (principal); R53.1 Weakness
CPT/HCPCS: 36415; 80048; 85027

== ENCOUNTER → 2017-08-12 | Outpatient (CLI) | payer MEDICARE ==
--- NOTE | 2017-08-12 17:54 | MR ---
EXAMINATION TYPE: MR lumbar spine wo con DATE OF EXAM: 08/12/2017 COMPARISON: 02/11/2014 HISTORY: Low back pain TECHNIQUE: T1 and T2 axial and sagittal images of the lumbar spine are submitted. FINDINGS: There is no abnormal signal seen within the visualized spinal cord or paraspinal soft tissu es. There is mild aneurysmal dilation of the upper abdominal aorta measuring 3.6 cm. Subcentimeter re nal cysts are noted. Heterogeneous marrow signal likely in the basis of marrow reconversion. At T12-L1 there is degenerative disc disease. No canal stenosis or foraminal encroachment. At L1-2 there is degenerative disc disease and facet arthropathy but no canal stenosis or foraminal e ncroachment. At L2-3 there is degenerative disc disease and facet arthropathy but no canal stenosis. Mild bilatera l foraminal encroachment. Schmorl's nodes involving L3. At L3-4 there is degenerative disc disease and moderate facet arthropathy with ligamentum flavum hype rtrophy. Circumferential disc bulging with mild bilateral foraminal encroachment. No Canal stenosis. At L4-5 there is grade 1 anterolisthesis with severe facet arthropathy and ligamentum flavum hypertro phy. Diffuse disc bulging results in moderate central stenosis. Bulging is greater laterally right wi th severe right-sided foraminal encroachment and compression of the nerve root within the neural fora susi. Mild left-sided encroachment. At L5-S1 there is severe degenerative disc disease with discogenic marrow changes and advanced facet arthropathy. Mild bilateral foraminal encroachment. Suspect a small extruded disc fragment along the superior margin of the S1 segment paracentrally to left with mild impression of the thecal sac. Best noted on sagittal image 7 sequence 201 and axial image 3 sequence 401. IMPRESSION: 1. Multilevel degenerative disc disease and facet arthropathy with grade 1 anterolisthesis L4 on L5 w hich appears to be degenerative secondary to advanced facet arthropathy. Disc bulging and hypertrophi c changes at this level result in moderate canal stenosis. Greater lateral disc bulging or protrusion with hypertrophic changes result in severe right-sided foraminal encroachment and compression of the nerve root within the neural foramina. 2. A small extruded disc herniation L5-S1 paracentral to the left suspected as discussed above. 3. 3.6 cm proximal abdominal aortic aneurysm.
== END | disposition home or self-care (01) ==
LOC: RADMRIMAIN 14:13
PROVIDERS: ATTEND Orthopaedic Surgery Orthopaedic Surgery of the Spine
DX: M48.061 Spinal stenosis, lumbar region without neurogenic claudication (principal); M51.27 Other intervertebral disc displacement, lumbosacral region; M43.16 Spondylolisthesis, lumbar region; M51.36 Other intervertebral disc degeneration, lumbar region; M46.96 Unspecified inflammatory spondylopathy, lumbar region
CPT/HCPCS: 72148

== ENCOUNTER 2017-10-09 11:29 | Inpatient (IN) | payer MEDICARE ==
[2017-10-09] MEDS ORDERED: ONDANSETRON 4 MG/2 ML VIAL IVP STA (12:11)
[2017-10-09] MEDS ORDERED: SODIUM CHLORIDE 0.9% 1,000 ML IV STA ×2 (12:11)
[2017-10-09] MEDS ORDERED: HYDROmorphone 0.5 MG/0.5 ML SYRINGE IVP STA (12:12)
[2017-10-09 12:39] LABS: Basophils % (A) 0 %; Eosinophils # (A) 0.3 k/uL (0-0.7); Eosinophils % (A) 3 %; HCT 38.4 % (34.0-46.0); HGB 12.5 gm/dL (11.4-16.0); Lymphocytes # (A) 2.9 k/uL (1.0-4.8); Lymphocytes % (A) 35 %; MCH 27.5 pg (25.0-35.0); MCHC 32.6 g/dL (31.0-37.0); MCV 84.5 fL (80.0-100.0); Mean Platelet Volume 6.8; Monocytes # (A) 0.6 k/uL (0-1.0); Monocytes % (A) 8 %; Neutrophils # (A) 4.3 k/uL (1.3-7.7); Neutrophils % (A) 52 %; Platelet Count 364 k/uL (150-450); RBC 4.54 m/uL (3.80-5.40); RDW 14.8 % (11.5-15.5); WBC 8.3 k/uL (3.8-10.6)
[2017-10-09 12:52] LABS: Calcium 9.8 mg/dL (8.4-10.2); Potassium 5.4 mmol/L (3.5-5.1); Total Bilirubin 0.3 mg/dL (0.2-1.3); Total Protein 8.1 g/dL (6.3-8.2)
--- NOTE | 2017-10-09 13:22 | XR ---
EXAMINATION TYPE: XR KUB DATE OF EXAM: 10/09/2017 1:13 PM CLINICAL HISTORY: Abdominal pain, nausea and vomiting. TECHNIQUE: Single supine KUB image of the abdomen is obtained. COMPARISON: None. FINDINGS: Few small bowel loops are upper limits of normal measuring 3.0 cm. Postsurgical changes are noted of the upper abdomen. Stomach is air-filled. No dilated large bowel. Multiple phlebolith withi n the pelvis. There is a mild levoscoliotic curvature of the lumbar spine. Surgical fixation of the l eft femur is noted. IMPRESSION: Few small bowel loops that are upper limits of normal suggesting ileus. No gross evidence of obstruction.
--- NOTE | 2017-10-09 13:35 | CT ---
EXAMINATION TYPE: CT abdomen pelvis wo con DATE OF EXAM: 10/09/2017 COMPARISON: 02/03/2017 and 10/28/2015 HISTORY: 82-year-old female abdominal pain, Weakness and pain CT DLP: 818 mGycm. Automated exposure control for dose reduction was used. TECHNIQUE: Contiguous axial scanning of the abdomen and pelvis without IV contrast. Coronal and sagit yesy reconstructions performed. FINDINGS: Heart normal size with trace pericardial effusion. Prominent dependent atelectasis at the lung bases. No pleural effusion. Stable 5 mm right middle lobe pulmonary nodule axial image 5 as compared to 2016. Aneurysm of the lower descending thoracic aorta at 3.3 cm slightly increased from 3.0 cm on 02/03/2017 . Stable subcentimeter hypodensity anterior mid liver to small fractured CT characterization, likely cy st. Otherwise, noncontrast appearance of the liver, gallbladder, adrenal glands, right kidney, spleen , and pancreas shows no gross abnormality. Punctate nonobstructive 2 mm left upper pole renal calculus. There is an interposition graft redemonstrated of the infrarenal abdominal aorta. No free air. Dilated small bowel loops in the left side of the abdomen measuring up to 3.1 cm, coronal image 15. T here is equalization of small bowel in the left upper to mid abdomen and a transition point at the le ft upper quadrant coronal image 34 and axial image 29. Mild mesenteric edema and trace interloop flui d in this region. Assessment for lymphadenopathy limited due to lack of contrast. Collapsed small bowel loops in the pelvis. Liquid stool in the cecum with mild overall stool burden i n diffuse colonic diverticulosis greatest along the left side of the colon and most extensive in the sigmoid colon. No pericolonic inflammatory change. Bladder nondistended. Uterus surgically absent. Multiple pelvic phleboliths. No abnormal fluid collec tion in the pelvis. Bones: Percutaneous pinning at the proximal left femur. Old healed fracture deformity left inferior p ubic ramus. Degenerated levoconvex curvature of the lumbar spine. Hypertrophic facet arthropathy with grade 1 anterolisthesis at L4-L5. Schmorl's nodes involving L3 vertebral body. No osseous destructiv e process. IMPRESSION: 1. Small bowel obstruction with transition point at the left upper to mid abdomen, coronal image 34 and axial image 29. Proximal small bowel loops are dilated up to 3.1 cm. 2. Some mild mesenteric edema and trace interloop free fluid in this region is likely reactive. 3. Descending thoracic aortic aneurysm (3.3 cm) slightly increased from 02/03/2017 where it measured 3.0 cm. 4. Stable punctate 2 mm nonobstructive left upper pole renal calculus. 5. Colonic diverticulosis most extensive in the sigmoid colon. 6. Previous interposition graft of the infrarenal abdominal aorta.
--- NOTE | 2017-10-09 14:48 | ED ---
Abdominal Pain HPI - General Chief Complaint: Abdominal Pain Stated Complaint: Abd Pain Time Seen by Provider: 10/09/17 11:52 Source: patient, family Mode of arrival: wheelchair Limitations: physical limitation - History of Present Illness Initial Comments: 82 years old female with a history of for hysterectomy AAA repair, brain aneurysm surgery presents with abdominal distention nausea vomiting excruciating pain she said pain is 10 over 10. She denies any headaches or neck stiffness no chest pain or shortness of breath no abdominal pain no frequency urgency dysuria no symptoms of TIA or CVA - Related Data Home Medications Medication Instructions Recorded Confirmed diphenhydrAMINE [Benadryl] 25 mg PO BID 06/23/14 10/09/17 Tiotropium 18 Mcg/Puff [Spiriva] 1 cap INHALATION RT-DAILY PRN 01/04/17 10/09/17 Previous Rx's Medication Instructions Recorded Temazepam [Restoril] 15 mg PO HS #7 cap 11/02/15 Allergies Allergy/AdvReac Type Severity Reaction Status Date / Time gluten Allergy Unknown Verified 10/09/17 12:30 codeine AdvReac Nausea & Verified 10/09/17 12:30 Vomiting Review of Systems ROS Statement: Those systems with pertinent positive or pertinent negative responses have been documented in the HPI. ROS Other: All systems not noted in ROS Statement are negative. Past Medical History Past Medical History: Cancer, COPD, GERD/Reflux, Musculoskeletal Disorder, Neurologic Disorder, Pneumonia, Rheumatoid Arthritis (RA), Skin Disorder Additional Past Medical History / Comment(s): 09-28-15 FALL/LT HIP FX. 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 KIDNEY DX, PAD, DIFFICULTY SWALLOWING History of Any Multi-Drug Resistant Organisms: None Reported Past Surgical History: Appendectomy, Hysterectomy Additional Past Surgical History / Comment(s): brain aneursym with surgery and angioplasty, aaa repair also, jani cataract, skin ca removed, lt breast bx and cyst removed, d&c, colonoscopy, orif lt hip, ORIF RT HIP, EGD Past Anesthesia/Blood Transfusion Reactions: No Reported Reaction Past Psychological History: No Psychological Hx Reported Smoking Status: Former smoker Past Alcohol Use History: None Reported Past Drug Use History: None Reported - Past Family History Mother Additional Family Medical History / Comment(s): BOWEL PROBLEMS/DIVERTICULAR DIEASE. LIVED TO BE 96 YEARS OLD Father History Unknown: Yes Additional Family Medical History / Comment(s): IN HIS SLEEEP AT AGE 86 Sister(s) Family Medical History: Cancer Additional Family Medical History / Comment(s): COLON Brother(s) Family Medical History: Cancer Additional Family Medical History / Comment(s): THROAT CANCER General Exam - General Exam Comments Initial Comments: General: The patient is awake and alert, in severe distress abdominal pain is 10 over 10. Skin: Skin is warm and dry and no rashes or lesions are noted. Eye: Pupils are equal, round and reactive to light, extra-ocular movements are intact; there is normal conjunctiva bilaterally. Ears, nose, mouth and throat: There are moist mucous membranes and no oral lesions. Neck: The neck is supple, there is no tenderness or JVD. Cardiovascular: There is a regular rate and rhythm. No murmur, rub or gallop is appreciated. Respiratory: To auscultation bilateral, no wheezing no rhonchi no distress respiratory rodriguez noticed Gastrointestinal: It is diffuse tenderness positive bowel sounds mild guarding at this point. Back: There is no tenderness to palpation in the midline. There is no obvious deformity. Musculoskeletal: Normal ROM, no tenderness, There is no pedal edema. There is no calf tenderness or swelling. No cords were appreciated. Neurological: CN II-XII intact, Cranial nerves III through XII are intact. There are no obvious motor or sensory deficits. Coordination appears grossly intact. Speech is normal. Psychiatric: Cooperative, appropriate mood & affect, normal judgment. Limitations: physical limitation Course Vital Signs 10/09/17 10/09/17 11:48 13:37 Temperature 98.3 F Pulse Rate 77 71 Respiratory 18 18 Rate Blood Pressure 167/88 123/59 O2 Sat by Pulse 95 96 Oximetry Upon reassessment the CT confirms the bowel obstruction and/or some other findings please refer to the CT report white count is 8.3 potassium is 5.4 creatinine is 1.9 CO2 obese negative was spoke with the Dr. Jean-Baptiste general surgeon rehabilitation medicine physician for Dr. Jean-Baptiste recommended we admit her under Dr. Michael/she be and she she be nothing by mouth nasogastric tube and IV fluids Medical Decision Making - Lab Data Result diagrams: 10/09/17 12:09 10/09/17 12:09 Lab Results 10/09/17 10/09/17 10/09/17 Range/Units 12:09 12: 12:09 WBC 8.3 (3.8-10.6) k/uL RBC 4.54 (3.80-5.40) m/uL Hgb 12.5 (11.4-16.0) gm/dL Hct 38.4 (34.0-46.0) % MCV 84.5 (80.0-100.0) fL MCH 27.5 (25.0-35.0) pg MCHC 32.6 (31.0-37.0) g/dL RDW 14.8 (11.5-15.5) % Plt Count 364 (150-450) k/uL Neutrophils % 52 % Lymphocytes % 35 % Monocytes % 8 % Eosinophils % 3 % Basophils % 0 % Neutrophils # 4.3 (1.3-7.7) k/uL Lymphocytes # 2.9 (1.0-4.8) k/uL Monocytes # 0.6 (0-1.0) k/uL Eosinophils # 0.3 (0-0.7) k/uL Basophils # 0.0 (0-0.2) k/uL Sodium 141 (137-145) mmol/L Potassium 5.4 H (3.5-5.1) mmol/L Chloride 104 (98-107) mmol/L Carbon Dioxide 22 (22-30) mmol/L Anion Gap 15 mmol/L BUN 44 H (7-17) mg/dL Creatinine 1.90 H (0.52-1.04) mg/dL Est GFR (CKD-EPI)AfAm 28 (>60 ml/min/1.73 sqM) Est GFR (CKD-EPI)NonAf 24 (>60 ml/min/1.73 sqM) Glucose 98 (74-99) mg/dL Calcium 9.8 (8.4-10.2) mg/dL Total Bilirubin 0.3 (0.2-1.3) mg/dL AST 29 (14-36) U/L ALT 21 (9-52) U/L Alkaline Phosphatase 98 (38-126) U/L Troponin I <0.012 (0.000-0.034) ng/mL Total Protein 8.1 (6.3-8.2) g/dL Albumin 4.0 (3.5-5.0) g/dL Amylase 103 (30-110) U/L Lipase 178 (23-300) U/L Disposition Clinical Impression: Small bowel obstruction Disposition: ADMITTED IP TO THIS [facility] Condition: Good Referrals: Justyn Johnson DO [Primary Care Provider] - 1-2 days
[2017-10-09] MEDS ORDERED: ONDANSETRON 4 MG/2 ML VIAL IVP PRN (14:57)
[2017-10-09] MEDS ORDERED: NALOXONE 0.4 MG/ML 1 ML VIAL IV PRN (14:57)
[2017-10-09] MEDS ORDERED: IPRATROPIUM 0.5 MG/2.5 ML NEBU INHALATION PRN (15:00)
[2017-10-09] MEDS: SODIUM CHLORIDE 0.9% 1,000 ML IV SCH (17:46)
--- NOTE | 2017-10-09 18:22 | P.GSCN ---
History of Present Illness Consult date: 10/09/17 History of present illness: 82-year-old female presents to the emergency department after complaints of abdominal pain, nausea and multiple emesis episodes that began this morning. She states that when she woke up she felt that something was wrong and began to have multiple emesis episodes. She presented to the emergency Department secondary to this. She states that she has had these episodes in the past in which she was diagnosed with a small bowel obstruction. She states that in the past she has been treated with nasogastric tube decompression. She states she does have multiple abdominal surgery history including an open AAA repair and hysterectomy. She states that after NG tube was placed in the emergency department that her abdominal pain was relieved and she feels much better. She denies having any bowel function since placement. She denies any fevers, chills , chest pain or shortness of breath. She currently has no additional complaints. Review of Systems All systems: negative Past Medical History Past Medical History: Cancer, COPD, GERD/Reflux, Musculoskeletal Disorder, Neurologic Disorder, Pneumonia, Rheumatoid Arthritis (RA), Skin Disorder Additional Past Medical History / Comment(s): 2016 FALL/LT HIP FX(sx). 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 KIDNEY DX, PAD,"difficulty swallowing", uti-ecoli 2016, over active bladder wears a brief. History of Any Multi-Drug Resistant Organisms: None Reported Past Surgical History: Appendectomy, Hysterectomy Additional Past Surgical History / Comment(s): brain aneursym with surgery and angioplasty, aaa repair also, jani cataract, skin ca removed, lt breast bx and cyst removed, d&c, colonoscopy, orif lt hip, ORIF RT HIP, EGD Past Anesthesia/Blood Transfusion Reactions: No Reported Reaction Smoking Status: Former smoker - Past Family History Mother Additional Family Medical History / Comment(s): BOWEL PROBLEMS/DIVERTICULAR DIEASE. LIVED TO BE 96 YEARS OLD Father History Unknown: Yes Additional Family Medical History / Comment(s): IN HIS SLEEEP AT AGE 86 Sister(s) Family Medical History: Cancer Additional Family Medical History / Comment(s): COLON Brother(s) Family Medical History: Cancer Additional Family Medical History / Comment(s): THROAT CANCER Medications and Allergies Home Medications Medication Instructions Recorded Confirmed Type diphenhydrAMINE [Benadryl] 25 mg PO BID 06/23/14 10/09/17 History Temazepam [Restoril] 15 mg PO HS #7 cap 11/02/15 10/09/17 Rx Tiotropium 18 Mcg/Puff [Spiriva] 1 cap INHALATION RT-DAILY PRN 01/04/17 History Allergies Allergy/AdvReac Type Severity Reaction Status Date / Time gluten Allergy Unknown Verified 10/09/17 12:30 codeine AdvReac Nausea & Verified 10/09/17 12:30 Vomiting Surgical - Exam Osteopathic Statement: *. No significant issues noted on an osteopathic structural exam other than those noted in the History and Physical/Consult. Vital Signs Temp Pulse Resp BP Pulse Ox 98.3 F 77 18 167/88 95 10/09/17 11:48 10/09/17 11:48 10/09/17 11:48 10/09/17 11:48 10/09/17 11:48 - General well developed, no distress - Eyes normal ocular movement - ENT normal mucosa, decreased hearing - Neck trachea midline - Respiratory No difficulty with respirations - Abdomen Soft, nontender, nondistended, no rebound, no guarding - Psychiatric oriented to time, oriented to person, oriented to place, speech is normal Results - Labs 10/09/17 12:09 10/09/17 12:09 Abnormal Lab Results - Last 24 Hours (Table) 10/09/17 Range/Units 12:09 Potassium 5.4 H (3.5-5.1) mmol/L BUN 44 H (7-17) mg/dL Creatinine 1.90 H (0.52-1.04) mg/dL Diabetes panel 10/09/17 Range/Units 12:09 Sodium 141 (137-145) mmol/L Potassium 5.4 H (3.5-5.1) mmol/L Chloride 104 (98-107) mmol/L Carbon Dioxide 22 (22-30) mmol/L BUN 44 H (7-17) mg/dL Creatinine 1.90 H (0.52-1.04) mg/dL Glucose 98 (74-99) mg/dL Calcium 9.8 (8.4-10.2) mg/dL AST 29 (14-36) U/L ALT 21 (9-52) U/L Alkaline Phosphatase 98 (38-126) U/L Total Protein 8.1 (6.3-8.2) g/dL Albumin 4.0 (3.5-5.0) g/dL Calcium panel 10/09/17 Range/Units 12:09 Calcium 9.8 (8.4-10.2) mg/dL Albumin 4.0 (3.5-5.0) g/dL Pituitary panel 10/09/17 Range/Units 12:09 Sodium 141 (137-145) mmol/L Potassium 5.4 H (3.5-5.1) mmol/L Chloride 104 (98-107) mmol/L Carbon Dioxide 22 (22-30) mmol/L BUN 44 H (7-17) mg/dL Creatinine 1.90 H (0.52-1.04) mg/dL Glucose 98 (74-99) mg/dL Calcium 9.8 (8.4-10.2) mg/dL Adrenal panel 10/09/17 Range/Units 12:09 Sodium 141 (137-145) mmol/L Potassium 5.4 H (3.5-5.1) mmol/L Chloride 104 (98-107) mmol/L Carbon Dioxide 22 (22-30) mmol/L BUN 44 H (7-17) mg/dL Creatinine 1.90 H (0.52-1.04) mg/dL Glucose 98 (74-99) mg/dL Calcium 9.8 (8.4-10.2) mg/dL Total Bilirubin 0.3 (0.2-1.3) mg/dL AST 29 (14-36) U/L ALT 21 (9-52) U/L Alkaline Phosphatase 98 (38-126) U/L Total Protein 8.1 (6.3-8.2) g/dL Albumin 4.0 (3.5-5.0) g/dL - Imaging CT scan - abdomen: report reviewed, image reviewed (Dilated small bowel loops, transition point apparent in left side of abdomen) CT scan - pelvis: report reviewed, image reviewed Assessment and Plan (1) Small bowel obstruction Narrative/Plan: 82-year-old female with small bowel obstruction - Continue NG tube to low intermittent suction - Keep nothing by mouth - IV fluid resuscitation - Await bowel function - Will continue to monitor prior to making any surgical decision Thank you for this consultation, I look forward in providing in this patient's care Current Visit: Yes Status: Acute Code(s): K56.609 - UNSP INTESTNL OBST, UNSP TO PARTIAL VERSUS COMPLETE OBST SNOMED Code(s): 267910416
[2017-10-09] MEDS: HYDROmorphone 0.5 MG/0.5 ML SYRINGE IVP PRN ×2 (18:43→22:02)
[2017-10-09] MEDS: diphenhydrAMINE 25 MG CAP PO SCH (21:14)
[2017-10-09] MEDS: TEMAZEPAM 15 MG CAP PO SCH (21:14)
[2017-10-10] MEDS: ONDANSETRON 4 MG/2 ML VIAL IVP PRN ×3 (01:25→15:02)
[2017-10-10] MEDS: SODIUM CHLORIDE 0.9% 1,000 ML IV SCH ×3 (01:25→19:03)
[2017-10-10] MEDS: HYDROmorphone 0.5 MG/0.5 ML SYRINGE IVP PRN ×4 (01:26→14:47)
[2017-10-10] MEDS: IPRATROPIUM 0.5 MG/2.5 ML NEBU INHALATION SCH ×3 (07:30→15:23)
[2017-10-10] MEDS: diphenhydrAMINE 25 MG CAP PO SCH ×2 (08:19→20:33)
[2017-10-10] MEDS ORDERED: BENZOCAINE SPRAY 1 CAN MUCOUS MEM PRN (08:40)
--- NOTE | 2017-10-10 09:22 | P.PN ---
Subjective Progress Note Date: 10/10/17 Patient seen and examined at bedside. States her abdominal pain is much improved. NG tube is been in place overnight with 200 mL of output. She denies any flatus or bowel movements. Objective - Vital Signs Vital signs: Vital Signs Temp 97.0 F L 10/10/17 05:40 Pulse 72 10/10/17 07:40 Resp 16 10/10/17 05:40 BP 135/75 10/10/17 05:40 Pulse Ox 94 L 10/10/17 05:40 Intake & Output 10/09/17 10/10/17 10/10/17 18:59 06:59 18:59 Output Total 200 Balance -200 Weight 49.895 kg Output: Gastric Drainage 200 Other: Voiding Method Bedpan Incontinent # Voids 2 - Constitutional General appearance: Present: cooperative, no acute distress - Respiratory Details: no difficulty with respiration - Gastrointestinal Gastrointestinal Comment(s): soft, nontender, nondistended, no rebound, no guarding - Musculoskeletal Musculoskeletal: Present: generalized weakness - Psychiatric Psychiatric: Present: appropriate affect - Labs CBC & Chem 7: 10/09/17 12:09 10/09/17 12:09 Labs: Abnormal Lab Results - Last 24 Hours (Table) 10/09/17 Range/Units 12:09 Potassium 5.4 H (3.5-5.1) mmol/L BUN 44 H (7-17) mg/dL Creatinine 1.90 H (0.52-1.04) mg/dL Assessment and Plan (1) Small bowel obstruction Narrative/Plan: 82-year-old female with small bowel obstruction - Continue NG tube to low intermittent suction - Keep nothing by mouth - IV fluid resuscitation - Await bowel function - Plan for acute abdominal series to be performed today to evaluate for any progression of the obstruction Current Visit: Yes Status: Acute Code(s): K56.609 - UNSP INTESTNL OBST, UNSP TO PARTIAL VERSUS COMPLETE OBST SNOMED Code(s): 221796555
--- NOTE | 2017-10-10 10:29 | XR ---
EXAMINATION TYPE: XR abdomen acute w cxr DATE OF EXAM: 10/10/2017 CLINICAL HISTORY: Small bowel obstruction. TECHNIQUE: Single frontal view of chest is obtained. Supine and upright views of the abdomen are acq uired. COMPARISON: Chest x-ray September 28, 2015. CT abdomen and pelvis and abdominal x-ray from yesterday. FINDINGS: Poor inspiration is seen with chronic parenchymal change but no suspicious focal airspace o pacity, pleural effusion, or pneumothorax.. Cardiac silhouette size appears stable and upper limits of normal. Osseous structures remain demineralized. Nasogastric tube projects below diaphragm. Slig htly elevated left hemidiaphragm is again seen. Gas is noted in nondistended stomach with NG tube in place. Gas and fecal material is seen in nondist ended colon along the periphery. There are gas filled nondilated small bowel loops scattered througho ut the abdomen and pelvis with single dilated gas-filled small bowel loop left upper pelvis above killian ac crest redemonstrated. Suspect interval improvement in amount of gas-filled prominent small bowel l oops. Numerous pelvic phleboliths are redemonstrated. Surgical changes epigastric region from aortic grafting are redemonstrated. No pneumoperitoneum is evident. Surgical change left hip level with fixa ting nails is redemonstrated. IMPRESSION: 1. Poor inspiration without suspicious acute pulmonary process. 2. Overall nonspecific bowel gas pattern. Improving gas prominent small bowel loops noted.
[2017-10-10 11:53] LABS: Appearance,Urine Clear (Clear); Bilirubin,Urine Negative (Negative); Blood,Urine Negative (Negative); Color,Urine Light Yellow; Glucose,Urine (UA) Negative (Negative); Ketones,Urine Trace (Negative); Leukocyte Esterase,Urine Negative (Negative); Nitrite,Urine Negative (Negative); Protein,Urine Negative (Negative); Specific Gravity,Urine 1.014 (1.001-1.035); Urobilinogen,Urine <2.0 mg/dL (<2.0)
[2017-10-10 15:44] VITALS: RESP 16
[2017-10-10] MEDS ORDERED: IPRATROPIUM-ALBUTEROL 3 ML NEB INHALATION PRN (18:16)
[2017-10-10] MEDS: ENOXAPARIN 40 MG/0.4 ML SYRINGE SQ SCH (19:03)
[2017-10-10 19:08] LABS: Calcium 8.9 mg/dL (8.4-10.2); Potassium 4.4 mmol/L (3.5-5.1)
[2017-10-10] MEDS: TEMAZEPAM 15 MG CAP PO SCH (20:33)
--- NOTE | 2017-10-10 21:01 | HP ---
HISTORY AND PHYSICAL DATE OF ADMISSION: 10/09/2017. DATE OF SERVICE: 10/10/2017 PRESENTING COMPLAINT: Abdominal pain. HISTORY OF PRESENTING COMPLAINT: A very pleasant 82-year-old patient who follows with Dr. Johnson. The patient's chronic stable medical conditions include COPD, GERD, rheumatoid arthritis. The patient presented to the ER with 5 days of progressively increasing abdominal pain, started having nausea, vomiting, distention. Denied any fever and chills. The patient normally has a bowel movement every 3-4 days. Last bowel movement was 3 days ago. The patient's abdomen became rather distended. There was no fever or chills. The patient presented to the ER. He did have a CT scan of the abdomen that showed small-bowel obstruction. Subsequently, an NG tube was placed. The patient had significant output that did feel better. Later this afternoon, the NG tube was taken out. The patient has not passed any flatus since then, sitting up. The patient was seen by Dr. Jean-Baptiste from general surgery. REVIEW OF SYSTEMS: CONSTITUTIONAL: Weak and tired. HEENT: None. RESPIRATORY: None. CARDIOVASCULAR: None. GASTROINTESTINAL: As above. GENITOURINARY: None. MUSCULOSKELETAL: Arthritic pain in joints. DERMATOLOGICAL: None. HEMATOLOGIC: None. LYMPHATIC: None. PSYCHIATRY: A bit anxious. NEUROLOGICAL: None. PAST MEDICAL HISTORY: COPD, GERD, rheumatoid arthritis, lumbar radiculopathy, cerebral aneurysm and AAA surgery for both, had brain surgery, diverticulosis, peripheral artery disease, overactive bladder, wears a brief. PAST SURGICAL HISTORY: Appendectomy, hysterectomy, brain aneurysm with surgery and angioplasty, AAA repair, bilateral cataract surgery, skin cancer removed, ORIF of left hip and right hip. SOCIAL HISTORY: The patient smoked from the age of 17. The patient started smoking at the age of 17, smoked for about 50 years, quit in 2002, smoking about 5 cigarettes a day. No alcohol. Lives with her . FAMILY HISTORY: Throat cancer. HOME MEDICATIONS: 1. Benadryl 25 mg p.o. b.i.d. 2. Spiriva 1 capsule inhalation daily p.r.n. 3. Restoril 50 mg p.o. q.h.s. ALLERGIES: To GLUTEN and CODEINE. EXAMINATION: VITAL SIGNS: On preparation, temperature 98.3, pulse 77, respirations 18, blood pressure 167/88, pulse ox 95% on room air. GENERAL APPEARANCE: Average-built, sitting up, tired-appearing. EYES: Pupils equal. Conjunctivae normal. HEENT: External appearance of nose and ears normal. Oral cavity dry mucous membranes. NECK: JVD not raised. Mass not palpable. RESPIRATORY: Effort normal. LUNGS: Diminished breath sounds. CARDIOVASCULAR: First and second sounds normal. No edema. ABDOMEN: Minimally distended. No tenderness. Liver and spleen not palpable. LYMPHATIC: No lymph node palpable in neck or axillae. PSYCHIATRY: Alert and oriented x3. Mood and affect normal. NEUROLOGICAL: Pupils equal. Cranial nerves grossly intact. Power and sensation grossly intact. INVESTIGATIONS: White count 8.3, hemoglobin 12.5. Potassium 5.4, BUN 44, creatinine 1.90. CT scan of the abdomen and pelvis reports small-bowel obstruction with transition point in left upper to mid abdomen with small-bowel loops dilated, colonic diverticulosis most extensive sigmoid colon. Abdominal x-ray film interpreted by me shows small-bowel distention, some air-fluid level. EKG tracing reviewed by me shows sinus bradycardia with a heart rate in the 40s. No ST-segment changes. ASSESSMENT: 1. This is a patient who presented with 5 days of nausea, vomiting, increasing abdominal distention. CT scan did confirm a small-bowel obstruction. Patient did have a nasogastric tube placed and did do well for the same. Abdominal films that were reviewed by me initially did show a bowel obstruction. The patient feels better with the same after some drainage. 2. Chronic obstructive pulmonary disease in an ex-smoker. 3. Gastroesophageal reflux disease. 4. Rheumatoid arthritis. 5. Chronic urinary overflow/stress incontinence. 6. Acute renal failure, likely prerenal from the labs being interpreted with a current creatinine being 1.9 up from up from 1.67, probably prerenal. 7. Hyperkalemia in the setting of renal failure. PLAN: Patient had an NG tube which has now been taken off. The patient is getting IV fluids. General Surgery was consulted. The patient was made n.p.o. IV fluids are being given. Labs will be repeated. Lovenox will be given for DVT prophylaxis. Follow up with the surgeon. Care was discussed with the patient. MMODL / IJN: [id number] /
[2017-10-11] MEDS: SODIUM CHLORIDE 0.9% 1,000 ML IV SCH ×2 (05:09→14:29)
[2017-10-11 06:34] VITALS: BP 159/93; PULSE 80; TEMP 97
[2017-10-11 08:36] LABS: Calcium 9.1 mg/dL (8.4-10.2); Potassium 4.1 mmol/L (3.5-5.1)
[2017-10-11 09:06] VITALS: BMI 18.8
[2017-10-11] MEDS: diphenhydrAMINE 25 MG CAP PO SCH (09:23)
[2017-10-11] MEDS: ENOXAPARIN 40 MG/0.4 ML SYRINGE SQ SCH (09:23)
--- NOTE | 2017-10-11 12:25 | P.PN ---
Subjective Progress Note Date: 10/11/17 Patient seen and examined at bedside. Patient is frustrated that she is in the hospital. The patient states that she had multiple bowel movements. This is not been confirmed by nursing. The nursing staff states that she has not had any bowel movements. When she is on the bedpan she is having flatus. She is tolerating clear liquid diet. Denies nausea and vomiting. Objective - Vital Signs Vital signs: Vital Signs Temp 97.0 F L 10/11/17 06:15 Pulse 80 10/11/17 06:15 Resp 16 10/11/17 06:15 BP 159/93 10/11/17 06:15 Pulse Ox 96 10/11/17 06:15 Intake & Output 10/10/17 10/11/17 10/11/17 18:59 06:59 18:59 Intake Total 720 2100 Output Total 600 Balance 120 2100 Weight 49.895 kg 49.895 kg Intake: IV 800 Sodium Chloride 0.9% 1, 800 000 ml @ 100 mls/hr IV . Q10H MARÍA Rx#:[id number] Intake, IV Titration 1300 Amount Sodium Chloride 0.9% 1, 1300 000 ml @ 100 mls/hr IV . Q10H MARÍA Rx#:[id number] Oral 720 Output: Urine 600 Other: Voiding Method Bedpan Diaper Incontinent # Voids 1 3 - Constitutional General appearance: Present: cooperative, no acute distress - Gastrointestinal Gastrointestinal Comment(s): Soft, nontender, nondistended, no rebound, no guarding - Labs CBC & Chem 7: 10/09/17 12:09 10/11/17 08:08 Labs: Abnormal Lab Results - Last 24 Hours (Table) 10/10/17 10/11/17 Range/Units 18:36 08:08 Chloride 108 H (98-107) mmol/L Carbon Dioxide 20 L (22-30) mmol/L BUN 27 H 21 H (7-17) mg/dL Creatinine 1.17 H 1.15 H (0.52-1.04) mg/dL Glucose 103 H (74-99) mg/dL Assessment and Plan (1) Small bowel obstruction Narrative/Plan: 82-year-old female with small bowel obstruction - Patient tolerated clear liquid diet yesterday after removal of her NG tube - Advance to soft diet - Medical recommendations Current Visit: Yes Status: Acute Code(s): K56.609 - UNSP INTESTNL OBST, UNSP TO PARTIAL VERSUS COMPLETE OBST SNOMED Code(s): 739181856
--- NOTE | 2017-10-12 07:12 | DS ---
DISCHARGE SUMMARY DATE OF ADMISSION: 10/09/2017 DATE OF DISCHARGE: 10/11/2017 FINAL DIAGNOSES: 1. Acute small-bowel obstruction. 2. Chronic obstructive pulmonary disease in an ex-smoker. 3. Gastroesophageal reflux disease. 4. Rheumatoid arthritis. 5. Chronic urinary stress incontinence. 6. Acute renal failure likely prerenal. 7. Hyperkalemia in setting of acute renal failure. HOSPITAL COURSE: This patient presented with small-bowel obstruction did have an NG tube. Diet was advanced to which she was doing much better. ON EXAM: ABDOMEN: Soft, nontender. Care was discussed with the patient's . Questions were answered. Discussion of discharge planning more than 35 minutes. CONSULTATION: Dr. Jean-Baptiste from General Surgery. The patient did have a CT scan of the abdomen. DISCHARGE MEDICATIONS: 1. Benadryl 25 mg p.o. b.i.d. 2. Restoril 15 mg p.o. at bedtime. 3. Spiriva 1 capsule p.o. daily p.r.n. DIET: Soft, bland. Follow up with Dr. Johnson in 3 days. Follow up with Dr. Jean-Baptiste p.r.n. MMDEREKL / GEOVANYN: [id number] /
[2017-10-12] MEDS ORDERED: ENOXAPARIN 30 MG/0.3 ML SYRINGE SQ SCH (09:00)
== END 2017-10-11 15:22 | disposition home or self-care (01) | DRG 389 ==
LOC: EC 11:29 → 4MS4W 14:57
PROVIDERS: ADMIT Hospitalist; ATTEND Hospitalist
PROC: 0D9670Z Drainage of Stomach with Drainage Device, Via Natural or Artificial Opening (ICD-10-PCS; principal; 2017-10-09)
DX: K56.609 Unspecified intestinal obstruction, unspecified as to partial versus complete obstruction (principal); N17.9 Acute kidney failure, unspecified; J44.9 Chronic obstructive pulmonary disease, unspecified; E87.5 Hyperkalemia; N32.81 Overactive bladder; N39.3 Stress incontinence (female) (male); K57.90 Diverticulosis of intestine, part unspecified, without perforation or abscess without bleeding; M06.9 Rheumatoid arthritis, unspecified; K21.9 Gastro-esophageal reflux disease without esophagitis; M54.16 Radiculopathy, lumbar region; L98.9 Disorder of the skin and subcutaneous tissue, unspecified; Z79.899 Other long term (current) drug therapy; Z90.710 Acquired absence of both cervix and uterus; Z87.81 Personal history of (healed) traumatic fracture; Z86.79 Personal history of other diseases of the circulatory system; Z87.01 Personal history of pneumonia (recurrent); Z85.828 Personal history of other malignant neoplasm of skin; Z87.891 Personal history of nicotine dependence; Z87.440 Personal history of urinary (tract) infections; Z90.49 Acquired absence of other specified parts of digestive tract; Z98.42 Cataract extraction status, left eye; Z98.41 Cataract extraction status, right eye; Z88.5 Allergy status to narcotic agent; Z91.018 Allergy to other foods; Z83.79 Family history of other diseases of the digestive system; Z80.0 Family history of malignant neoplasm of digestive organs
CPT/HCPCS: 36415; 43753; 74018; 74022; 74176; 80048; 80053; 81003; 82150; 83690; 84484; 85025; 93005; 94640; 96361; 96374; 96375; 99285

== ENCOUNTER 2018-03-10 10:55 | Emergency (ER) | payer MEDICARE ==
[2018-03-10] MEDS ORDERED: SODIUM CHLORIDE 0.9% 1,000 ML IV STA (11:18)
[2018-03-10 12:07] LABS: Basophils % (A) 0 %; Eosinophils # (A) 0.1 k/uL (0-0.7); Eosinophils % (A) 3 %; HCT 41.3 % (34.0-46.0); HGB 13.1 gm/dL (11.4-16.0); Lymphocytes # (A) 1.8 k/uL (1.0-4.8); Lymphocytes % (A) 36 %; MCH 28.3 pg (25.0-35.0); MCHC 31.8 g/dL (31.0-37.0); MCV 89.1 fL (80.0-100.0); Mean Platelet Volume 6.4; Monocytes # (A) 0.3 k/uL (0-1.0); Monocytes % (A) 6 %; Neutrophils # (A) 2.6 k/uL (1.3-7.7); Neutrophils % (A) 52 %; Platelet Count 315 k/uL (150-450); RBC 4.63 m/uL (3.80-5.40); RDW 14.5 % (11.5-15.5); WBC 4.9 k/uL (3.8-10.6)
--- NOTE | 2018-03-10 12:09 | ED ---
Fall HPI - General Chief Complaint: Fall Stated Complaint: Fell side pain/constipation Time Seen by Provider: 03/10/18 11:18 Source: patient Mode of arrival: wheelchair - History of Present Illness Initial Comments: This is an 82-year-old female the ER for evaluation. Patient does say for evaluation status post fall. Patient had a fall right-sided rib pain, she also complains of abdominal pain possible obstruction she states she's had obstruction before multiple times in her life patient feels like this may be similar pain from her abdomen abdomen is much improved. Patient denies any other injury from fall no headache no head pain, no loss of consciousness no headache chest pain or shortness of breath MD Complaint: fall -: hour(s) Fall From: standing When Fall Occurred: unsure Fall Witnessed: no Place Fall Occurred: home Loss of Consciousness: none Prolonged Down Time?: no Symptoms Prior to Fall: none Location: chest Severity: mild Severity scale (1-10): 1 Quality: aching Context: tripped/slipped Associated Symptoms: denies - Related Data Home Medications Medication Instructions Recorded Confirmed diphenhydrAMINE [Benadryl] 25 mg PO BID 06/23/14 03/10/18 Tiotropium 18 Mcg/Puff [Spiriva] 1 cap INHALATION RT-DAILY PRN 01/04/17 03/10/18 Calcium Carbonate [Calcium] 600 mg PO DAILY 03/10/18 03/10/18 Cholecalciferol [Vitamin D3] 1,000 unit PO DAILY 03/10/18 03/10/18 Previous Rx's Medication Instructions Recorded Temazepam [Restoril] 15 mg PO HS #7 cap 11/02/15 Allergies Allergy/AdvReac Type Severity Reaction Status Date / Time gluten Allergy Unknown Verified 03/10/18 13:13 codeine AdvReac Nausea & Verified 03/10/18 13:13 Vomiting Review of Systems ROS Statement: Those systems with pertinent positive or pertinent negative responses have been documented in the HPI. ROS Other: All systems not noted in ROS Statement are negative. Past Medical History Past Medical History: Cancer, COPD, GERD/Reflux, Musculoskeletal Disorder, Neurologic Disorder, Pneumonia, Rheumatoid Arthritis (RA), Skin Disorder Additional Past Medical History / Comment(s): 2016 FALL/LT HIP FX(sx). 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 KIDNEY DX, PAD,"difficulty swallowing", uti-ecoli 2016, over active bladder wears a brief. History of Any Multi-Drug Resistant Organisms: None Reported Past Surgical History: Appendectomy, Hysterectomy Additional Past Surgical History / Comment(s): brain aneursym with surgery and angioplasty, aaa repair also, jani cataract, skin ca removed, lt breast bx and cyst removed, d&c, colonoscopy, orif lt hip, ORIF RT HIP, EGD Past Anesthesia/Blood Transfusion Reactions: No Reported Reaction Past Psychological History: No Psychological Hx Reported Smoking Status: Former smoker - Past Family History Mother Additional Family Medical History / Comment(s): BOWEL PROBLEMS/DIVERTICULAR DIEASE. LIVED TO BE 96 YEARS OLD Father History Unknown: Yes Additional Family Medical History / Comment(s): IN HIS SLEEEP AT AGE 86 Sister(s) Family Medical History: Cancer Additional Family Medical History / Comment(s): COLON Brother(s) Family Medical History: Cancer Additional Family Medical History / Comment(s): THROAT CANCER General Exam Limitations: no limitations General appearance: alert, in no apparent distress Head exam: Present: atraumatic, normocephalic, normal inspection Eye exam: Present: normal appearance, PERRL, EOMI. Absent: scleral icterus, conjunctival injection, periorbital swelling ENT exam: Present: normal exam, mucous membranes moist Neck exam: Present: normal inspection. Absent: tenderness, meningismus, lymphadenopathy Respiratory exam: Present: normal lung sounds bilaterally. Absent: respiratory distress, wheezes, rales, rhonchi, stridor Cardiovascular Exam: Present: regular rate, normal rhythm, normal heart sounds. Absent: systolic murmur, diastolic murmur, rubs, gallop, clicks GI/Abdominal exam: Present: soft, normal bowel sounds. Absent: distended, tenderness, guarding, rebound, rigid Extremities exam: Present: normal inspection, full ROM, normal capillary refill. Absent: tenderness, pedal edema, joint swelling, calf tenderness Back exam: Present: normal inspection Neurological exam: Present: alert, oriented X3, CN II-XII intact Psychiatric exam: Present: normal affect, normal mood Skin exam: Present: warm, dry, intact, normal color. Absent: rash Course Vital Signs 03/10/18 11:09 Temperature 97.4 F L Pulse Rate 92 Respiratory 18 Rate Blood Pressure 129/79 O2 Sat by Pulse 98 Oximetry - Reevaluation(s) Reevaluation #1: 03/10/18 13:51 Medical record is reviewed including prior CAT scans Reevaluation #2: 03/10/18 13:51 Patient is able to tolerate oral intake Medical Decision Making - Medical Decision Making 82 female the ER for evaluation. Abdominal pain but x-ray negative for obstruction, rib study negative for acute traumatic fracture. - Lab Data Result diagrams: 03/10/18 11:49 03/10/18 11:49 Lab Results 03/10/18 03/10/18 03/10/18 Range/Units 11:49 11:49 11:49 WBC 4.9 (3.8-10.6) k/uL RBC 4.63 (3.80-5.40) m/uL Hgb 13.1 (11.4-16.0) gm/dL Hct 41.3 (34.0-46.0) % MCV 89.1 (80.0-100.0) fL MCH 28.3 (25.0-35.0) pg MCHC 31.8 (31.0-37.0) g/dL RDW 14.5 (11.5-15.5) % Plt Count 315 (150-450) k/uL Neutrophils % 52 % Lymphocytes % 36 % Monocytes % 6 % Eosinophils % 3 % Basophils % 0 % Neutrophils # 2.6 (1.3-7.7) k/uL Lymphocytes # 1.8 (1.0-4.8) k/uL Monocytes # 0.3 (0-1.0) k/uL Eosinophils # 0.1 (0-0.7) k/uL Basophils # 0.0 (0-0.2) k/uL Sodium 142 (137-145) mmol/L Potassium 4.3 (3.5-5.1) mmol/L Chloride 107 (98-107) mmol/L Carbon Dioxide 26 (22-30) mmol/L Anion Gap 9 mmol/L BUN 37 H (7-17) mg/dL Creatinine 1.77 H (0.52-1.04) mg/dL Est GFR (CKD-EPI)AfAm 30 (>60 ml/min/1.73 sqM) Est GFR (CKD-EPI)NonAf 26 (>60 ml/min/1.73 sqM) Glucose 99 (74-99) mg/dL Calcium 9.9 (8.4-10.2) mg/dL Phosphorus 4.6 H (2.5-4.5) mg/dL Magnesium 2.2 (1.6-2.3) mg/dL Total Bilirubin 0.4 (0.2-1.3) mg/dL AST 30 (14-36) U/L ALT 15 (9-52) U/L Alkaline Phosphatase 103 (38-126) U/L Total Creatine Kinase 158 H (30-135) U/L CK-MB (CK-2) 5.9 H (0.0-2.4) ng/mL CK-MB (CK-2) Rel Index 3.7 Troponin I <0.012 (0.000-0.034) ng/mL Total Protein 9.0 H (6.3-8.2) g/dL Albumin 4.2 (3.5-5.0) g/dL Urine Color Urine Appearance (Clear) Urine pH (5.0-8.0) Ur Specific [place] (1.001-1.035) Urine Protein (Negative) Urine Glucose (UA) (Negative) Urine Ketones (Negative) Urine Blood (Negative) Urine Nitrite (Negative) Urine Bilirubin (Negative) Urine Urobilinogen (<2.0) mg/dL Ur Leukocyte Esterase (Negative) Urine RBC (0-5) /hpf Urine WBC (0-5) /hpf Ur Squamous Epith Cells (0-4) /hpf Hyaline Casts (0-2) /lpf Urine Mucus (None) /hpf 03/10/18 Range/Units 11:49 WBC (3.8-10.6) k/uL RBC (3.80-5.40) m/uL Hgb (11.4-16.0) gm/dL Hct (34.0-46.0) % MCV (80.0-100.0) fL MCH (25.0-35.0) pg MCHC (31.0-37.0) g/dL RDW (11.5-15.5) % Plt Count (150-450) k/uL Neutrophils % % Lymphocytes % % Monocytes % % Eosinophils % % Basophils % % Neutrophils # (1.3-7.7) k/uL Lymphocytes # (1.0-4.8) k/uL Monocytes # (0-1.0) k/uL Eosinophils # (0-0.7) k/uL Basophils # (0-0.2) k/uL Sodium (137-145) mmol/L Potassium (3.5-5.1) mmol/L Chloride (98-107) mmol/L Carbon Dioxide (22-30) mmol/L Anion Gap mmol/L BUN (7-17) mg/dL Creatinine (0.52-1.04) mg/dL Est GFR (CKD-EPI)AfAm (>60 ml/min/1.73 sqM) Est GFR (CKD-EPI)NonAf (>60 ml/min/1.73 sqM) Glucose (74-99) mg/dL Calcium (8.4-10.2) mg/dL Phosphorus (2.5-4.5) mg/dL Magnesium (1.6-2.3) mg/dL Total Bilirubin (0.2-1.3) mg/dL AST (14-36) U/L ALT (9-52) U/L Alkaline Phosphatase (38-126) U/L Total Creatine Kinase (30-135) U/L CK-MB (CK-2) (0.0-2.4) ng/mL CK-MB (CK-2) Rel Index Troponin I (0.000-0.034) ng/mL Total Protein (6.3-8.2) g/dL Albumin (3.5-5.0) g/dL Urine Color Yellow Urine Appearance Clear (Clear) Urine pH 5.0 (5.0-8.0) Ur Specific [place] 1.014 (1.001-1.035) Urine Protein Negative (Negative) Urine Glucose (UA) Negative (Negative) Urine Ketones Negative (Negative) Urine Blood Negative (Negative) Urine Nitrite Negative (Negative) Urine Bilirubin Negative (Negative) Urine Urobilinogen <2.0 (<2.0) mg/dL Ur Leukocyte Esterase Trace H (Negative) Urine RBC <1 (0-5) /hpf Urine WBC 2 (0-5) /hpf Ur Squamous Epith Cells <1 (0-4) /hpf Hyaline Casts 7 H (0-2) /lpf Urine Mucus Rare H (None) /hpf - EKG Data -: EKG Interpreted by Me (EKG shows normal sinus rhythm rate of 64, UT 154, QRS 84,) - Radiology Data Radiology results: report reviewed (X-ray abdominal series and chest with rib study shows no rib fractures and no obstruction), image reviewed Disposition Clinical Impression: Abdominal pain, Fall, Rib pain on right side Disposition: HOME SELF-CARE Condition: Good Instructions: Abdominal Pain (ED), Fall Prevention for Older Adults (ED) Is patient prescribed a controlled substance at d/c from ED?: No Referrals: Justyn Johnson DO [Primary Care Provider] - 1-2 days
[2018-03-10 12:18] LABS: Albumin 4.2 g/dL (3.5-5.0); Calcium 9.9 mg/dL (8.4-10.2); Magnesium 2.2 mg/dL (1.6-2.3); Phosphorus 4.6 mg/dL (2.5-4.5); Potassium 4.3 mmol/L (3.5-5.1); Total Bilirubin 0.4 mg/dL (0.2-1.3)
[2018-03-10 12:22] LABS: Appearance,Urine Clear (Clear); Bilirubin,Urine Negative (Negative); Blood,Urine Negative (Negative); Color,Urine Yellow; Glucose,Urine (UA) Negative (Negative); Hyaline Casts,Urine 7 /lpf (0-2); Ketones,Urine Negative (Negative); Leukocyte Esterase,Urine Trace (Negative); Mucus,Urine Rare /hpf; Nitrite,Urine Negative (Negative); Protein,Urine Negative (Negative); RBC,Urine <1 /hpf (0-5); Specific Gravity,Urine 1.014 (1.001-1.035); Squamous Epithelial Cell,Urine <1 /hpf (0-4); Urobilinogen,Urine <2.0 mg/dL (<2.0); WBC,Urine 2 /hpf (0-5)
[2018-03-10 12:26] LABS: Creatine Kinase 158 U/L (30-135)
[2018-03-10 12:40] LABS: Creatine Kinase MB 5.9 ng/mL (0.0-2.4); Troponin I <0.012 ng/mL (0.000-0.034)
--- NOTE | 2018-03-10 13:26 | XR ---
EXAMINATION TYPE: XR ribs RT , 5 VIEWS DATE OF EXAM ORDERED: 03/10/2018 HISTORY: Pain. COMPARISON: Previous chest x-ray dated 09/28/2015. FINDINGS: There are patchy, ill-defined densities present bilaterally.. Pleural spaces are clear. Th e heart is not enlarged. There is no evidence of pneumothorax. No displaced rib fracture is identifie d. IMPRESSION: 1. ILL-DEFINED, PATCHY OPACITIES PRESENT BILATERALLY. THESE WERE NOT PRESENT PREVIOUSLY. A NONEMERGEN T CT SCAN OF THE CHEST WOULD BE SUGGESTED FOR FURTHER ASSESSMENT. 2. NO DISPLACED RIB FRACTURE IS IDENTIFIED.
--- NOTE | 2018-03-10 13:28 | XR ---
EXAMINATION TYPE: XR abdomen acute w cxr , 2 VIEWS DATE OF EXAM ORDERED: 03/10/2018 HISTORY: Pain. COMPARISON: None. FINDINGS: Ill-defined, patchy opacities are less clearly identified on this study. Within the abdomen, the abdominal gas pattern is normal. There is no evidence of obstruction or free air. There are phleboliths within the pelvis. There is been previous epigastric surgery. There have been n o pitting of the left hip. IMPRESSION: NO ACUTE INTRA-ABDOMINAL ABNORMALITY.
[2018-03-10 14:06] VITALS: BP 187/93; PULSE 69; RESP 16; TEMP 97.8
== END 2018-03-10 14:30 | disposition home or self-care (01) ==
LOC: EC 10:55
DX: R07.81 Pleurodynia (principal); R10.9 Unspecified abdominal pain; J44.9 Chronic obstructive pulmonary disease, unspecified; Z87.891 Personal history of nicotine dependence; Z88.5 Allergy status to narcotic agent; Z91.018 Allergy to other foods; Z79.899 Other long term (current) drug therapy; Z85.828 Personal history of other malignant neoplasm of skin; Z98.890 Other specified postprocedural states; Z90.49 Acquired absence of other specified parts of digestive tract; Z80.0 Family history of malignant neoplasm of digestive organs; W01.0XXA Fall on same level from slipping, tripping and stumbling without subsequent striking against object, initial encounter; Y92.009 Unspecified place in unspecified non-institutional (private) residence as the place of occurrence of the external cause
CPT/HCPCS: 36415; 74022; 80053; 81001; 82550; 82553; 83735; 84100; 84484; 85025; 87086; 93005; 96360; 99284

== ENCOUNTER 2018-06-02 10:28 | Emergency (ER) | payer MEDICARE ==
[2018-06-02 10:35] VITALS: RESP 18; TEMP 98
[2018-06-02 10:46] LABS: Glucose,Whole Blood 76 mg/dL (75-99)
--- NOTE | 2018-06-02 11:01 | ED ---
General Adult HPI - General Chief complaint: Neuro Symptoms/Deficit Stated complaint: Speech problems Time Seen by Provider: 06/02/18 10:44 Source: patient, family, RN notes reviewed Mode of arrival: wheelchair Limitations: no limitations - History of Present Illness Initial comments: Patient is a pleasant 82-year-old female presenting to the emergency Department with complaints of garbled speech. Onset of symptoms was 9:45 AM. is present. did witness onset. Garbled speech has improved. Patient still feels somewhat confused. Confusion is new. No isolated area of weakness. No history of similar symptoms previously. No pain. - Related Data Home Medications Medication Instructions Recorded Confirmed diphenhydrAMINE [Benadryl] 25 mg PO BID 06/23/14 06/02/18 Cholecalciferol [Vitamin D3] 2,000 unit PO DAILY 03/10/18 06/02/18 Previous Rx's Medication Instructions Recorded Temazepam [Restoril] 15 mg PO HS #7 cap 11/02/15 Allergies Allergy/AdvReac Type Severity Reaction Status Date / Time gluten Allergy Unknown Verified 06/02/18 10:52 codeine AdvReac Nausea & Verified 06/02/18 10:52 Vomiting Review of Systems ROS Statement: Those systems with pertinent positive or pertinent negative responses have been documented in the HPI. ROS Other: All systems not noted in ROS Statement are negative. Constitutional: Denies: fever Eyes: Denies: eye pain ENT: Denies: ear pain Respiratory: Denies: cough Cardiovascular: Denies: chest pain Endocrine: Denies: fatigue Gastrointestinal: Denies: abdominal pain Genitourinary: Denies: dysuria Musculoskeletal: Denies: back pain Skin: Denies: rash Neurological: Reports: confusion. Denies: headache, weakness Past Medical History Past Medical History: Cancer, COPD, CVA/TIA, GERD/Reflux, Musculoskeletal Disorder, Neurologic Disorder, Pneumonia, Rheumatoid Arthritis (RA), Skin Disorder Additional Past Medical History / Comment(s): 2016 FALL/LT HIP FX(sx). 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 KIDNEY DX, PAD,"difficulty swallowing", uti-ecoli 2016, over active bladder wears a brief. History of Any Multi-Drug Resistant Organisms: None Reported Past Surgical History: Appendectomy, Hysterectomy Additional Past Surgical History / Comment(s): brain aneursym with surgery and angioplasty, aaa repair also, jani cataract, skin ca removed, lt breast bx and cyst removed, d&c, colonoscopy, orif lt hip, ORIF RT HIP, EGD Past Anesthesia/Blood Transfusion Reactions: No Reported Reaction Past Psychological History: No Psychological Hx Reported Smoking Status: Former smoker Past Alcohol Use History: None Reported Past Drug Use History: None Reported - Past Family History Mother Additional Family Medical History / Comment(s): BOWEL PROBLEMS/DIVERTICULAR DIEASE. LIVED TO BE 96 YEARS OLD Father History Unknown: Yes Additional Family Medical History / Comment(s): IN HIS SLEEEP AT AGE 86 Sister(s) Family Medical History: Cancer Additional Family Medical History / Comment(s): COLON Brother(s) Family Medical History: Cancer Additional Family Medical History / Comment(s): THROAT CANCER General Exam Limitations: no limitations General appearance: alert, in no apparent distress Head exam: Present: atraumatic Eye exam: Present: normal appearance, PERRL ENT exam: Present: normal oropharynx Neck exam: Present: normal inspection Respiratory exam: Present: normal lung sounds bilaterally Cardiovascular Exam: Present: regular rate, normal rhythm Expanded Peripheral pulses: 2+: Radial (R), Radial (L), Dorsalis Pedis (R), Dorsalis Pedis (L) GI/Abdominal exam: Present: soft. Absent: distended, tenderness Extremities exam: Present: normal inspection Neurological exam: Present: alert, CN II-XII intact. Absent: motor sensory deficit Expanded Neurological exam: Present: protecting the airway Patient oriented to: Present: person, place. Absent: time Cerebellar function: Finger to Nose: Normal Motor strength exam: RUE: 5, LUE: 5, RLE: 5, LLE: 5 Eye Response: (4) open spontaneously Motor Response: (6) obeys commands Verbal Response: (4) confused conversation Psychiatric exam: Present: normal affect, normal mood Skin exam: Present: normal color Course Vital Signs 06/02/18 10:32 Temperature 98 F Pulse Rate 87 Respiratory 18 Rate Blood Pressure 148/82 O2 Sat by Pulse 97 Oximetry EKG Findings - EKG Comments: EKG Findings:: Normal sinus rhythm at 80. MD 152. QRS 78. QT 384. QTC 442. Normal axis. Normal QRS. No acute ST change Medical Decision Making - Medical Decision Making Patient reevaluated and improved. No speech problem. Patient is oriented. Neural interventional list did not recommend providing TPA. Case was discussed with Dr. Castro from [facility] who will accept transfer. Patient will need to be transferred because there is no neurology available. Patient and family requests [facility]. Elevated creatinine is chronic compared to previous labs. - Lab Data Result diagrams: 06/02/18 10:53 06/02/18 10:53 Lab Results 06/02/18 06/02/18 06/02/18 Range/Units 10:45 10:53 10:53 WBC 6.0 (3.8-10.6) k/uL RBC 4.56 (3.80-5.40) m/uL Hgb 13.2 (11.4-16.0) gm/dL Hct 40.2 (34.0-46.0) % MCV 88.1 (80.0-100.0) fL MCH 28.9 (25.0-35.0) pg MCHC 32.8 (31.0-37.0) g/dL RDW 14.2 (11.5-15.5) % Plt Count 247 (150-450) k/uL Neutrophils % 46 % Lymphocytes % 43 % Monocytes % 6 % Eosinophils % 3 % Basophils % 0 % Neutrophils # 2.7 (1.3-7.7) k/uL Lymphocytes # 2.5 (1.0-4.8) k/uL Monocytes # 0.4 (0-1.0) k/uL Eosinophils # 0.2 (0-0.7) k/uL Basophils # 0.0 (0-0.2) k/uL PT (9.0-12.0) sec INR (<1.2) APTT (22.0-30.0) sec Sodium 141 (137-145) mmol/L Potassium 4.7 (3.5-5.1) mmol/L Chloride 110 H (98-107) mmol/L Carbon Dioxide 21 L (22-30) mmol/L Anion Gap 10 mmol/L BUN 39 H (7-17) mg/dL Creatinine 1.85 H (0.52-1.04) mg/dL Est GFR (CKD-EPI)AfAm 29 (>60 ml/min/1.73 sqM) Est GFR (CKD-EPI)NonAf 25 (>60 ml/min/1.73 sqM) Glucose 79 (74-99) mg/dL POC Glucose (mg/dL) 76 (75-99) mg/dL POC Glu [employer] [place] Calcium 9.7 (8.4-10.2) mg/dL Total Bilirubin 0.6 (0.2-1.3) mg/dL AST 28 (14-36) U/L ALT 25 (9-52) U/L Alkaline Phosphatase 105 (38-126) U/L Troponin I (0.000-0.034) ng/mL Total Protein 9.0 H (6.3-8.2) g/dL Albumin 4.3 (3.5-5.0) g/dL 06/02/18 06/02/18 Range/Units 10:53 10:53 WBC (3.8-10.6) k/uL RBC (3.80-5.40) m/uL Hgb (11.4-16.0) gm/dL Hct (34.0-46.0) % MCV (80.0-100.0) fL MCH (25.0-35.0) pg MCHC (31.0-37.0) g/dL RDW (11.5-15.5) % Plt Count (150-450) k/uL Neutrophils % % Lymphocytes % % Monocytes % % Eosinophils % % Basophils % % Neutrophils # (1.3-7.7) k/uL Lymphocytes # (1.0-4.8) k/uL Monocytes # (0-1.0) k/uL Eosinophils # (0-0.7) k/uL Basophils # (0-0.2) k/uL PT 9.5 (9.0-12.0) sec INR 0.9 (<1.2) APTT 23.5 (22.0-30.0) sec Sodium (137-145) mmol/L Potassium (3.5-5.1) mmol/L Chloride (98-107) mmol/L Carbon Dioxide (22-30) mmol/L Anion Gap mmol/L BUN (7-17) mg/dL Creatinine (0.52-1.04) mg/dL Est GFR (CKD-EPI)AfAm (>60 ml/min/1.73 sqM) Est GFR (CKD-EPI)NonAf (>60 ml/min/1.73 sqM) Glucose (74-99) mg/dL POC Glucose (mg/dL) (75-99) mg/dL POC Glu [employer] [place] Calcium (8.4-10.2) mg/dL Total Bilirubin (0.2-1.3) mg/dL AST (14-36) U/L ALT (9-52) U/L Alkaline Phosphatase (38-126) U/L Troponin I <0.012 (0.000-0.034) ng/mL Total Protein (6.3-8.2) g/dL Albumin (3.5-5.0) g/dL - Radiology Data Radiology results: image reviewed (Computed tomography scan of the brain shows no acute abnormality. Prior clipping from aneurysm.) Disposition Clinical Impression: Transient cerebral ischemia Disposition: OTHER INSTITUTION NOT DEFINED Is patient prescribed a controlled substance at d/c from ED?: No Referrals: Justyn Johnson DO [Primary Care Provider] - 1-2 days Time of Disposition: 11:51 - Out of Hospital Transfer - Req. Specs Out of Hospital Transfer - Requested Specifics: Other Emergency Center
[2018-06-02 11:05] LABS: Basophils % (A) 0 %; Eosinophils # (A) 0.2 k/uL (0-0.7); Eosinophils % (A) 3 %; HCT 40.2 % (34.0-46.0); HGB 13.2 gm/dL (11.4-16.0); Lymphocytes # (A) 2.5 k/uL (1.0-4.8); Lymphocytes % (A) 43 %; MCH 28.9 pg (25.0-35.0); MCHC 32.8 g/dL (31.0-37.0); MCV 88.1 fL (80.0-100.0); Mean Platelet Volume 6.6; Monocytes # (A) 0.4 k/uL (0-1.0); Monocytes % (A) 6 %; Neutrophils # (A) 2.7 k/uL (1.3-7.7); Neutrophils % (A) 46 %; Platelet Count 247 k/uL (150-450); RBC 4.56 m/uL (3.80-5.40); RDW 14.2 % (11.5-15.5)
[2018-06-02 11:13] LABS: Albumin 4.3 g/dL (3.5-5.0); Calcium 9.7 mg/dL (8.4-10.2); Potassium 4.7 mmol/L (3.5-5.1); Total Bilirubin 0.6 mg/dL (0.2-1.3)
--- NOTE | 2018-06-02 11:17 | CT ---
EXAMINATION TYPE: CT brain wo con for TPA DATE OF EXAM: 06/02/2018 HISTORY: slurred speech, confusion CT DLP: 1241 (brain, CTA head and neck) mGycm. Automated Exposure Control for Dose Reduction was Uti lized. TECHNIQUE: CT scan of the head is performed without contrast. COMPARISON: None. FINDINGS: There is no acute intracranial hemorrhage or midline shift identified. There is diffuse v entricular and sulcal prominence consistent with diffuse age-related cerebral atrophy. Asymmetric pr ominent right temporal horn versus left side is similar to prior. There is right temporal craniotomy and craniectomy defect redemonstrated. There is low-attenuation in the periventricular white matter c onsistent with chronic small vessel ischemic change. Artifact from aneurysm clip near right MCA origi n is redemonstrated. The globes are intact and the visualized sinuses are clear. IMPRESSION: No acute intracranial hemorrhage or midline shift. There is mild to moderate diffuse ag e-related cerebral atrophy and moderate to advanced chronic small vessel ischemic change as well as e vidence of prior intracranial aneurysm surgery all redemonstrated.
[2018-06-02 11:26] LABS: INR 0.9 (<1.2); Partial Thromboplastin Time 23.5 sec (22.0-30.0); Prothrombin Time 9.5 sec (9.0-12.0)
--- NOTE | 2018-06-02 11:55 | CT ---
EXAMINATION TYPE: CT angio head neck DATE OF EXAM: 06/02/2018 HISTORY: slurred speech, confusion COMPARISON: NONE CT DLP: 1241 (brain, CTA head and neck) mGycm. Automated Exposure Control for Dose Reduction was Uti lized. TECHNIQUE: CTA scan of the head and neck are performed with IV Contrast, patient injected with 65 mL of Isovue 370, axial images are obtained, coronal and sagittal reformatted images are reviewed. Thre e-D reconstructed images are created on an independent workstation and reviewed. FINDINGS: Carotid/Vascular Structures: There is 4 vessel origin from aortic arch which is normal variant. Mild peripheral plaque is seen in the ascending aorta. Some ectasia to the bilateral subclavian arteries i s seen without significant stenosis. Right common carotid artery shows normal origin from right brach iocephalic artery. There is narrowing of the right external carotid artery shortly after its origin a s there is mild calcified plaque at right carotid bulb with more prominent plaque extension into the external carotid artery. Mild calcified plaque extends into proximal internal carotid artery without significant stenosis. Remainder of right internal carotid artery shows artifact from aneurysm clip di ley in mild calcified plaque just proximal to this. There is tortuous course to the left common carotid artery with mild plaque at left carotid bulb. The re is no significant stenosis in the left common or internal carotid artery. There is significant fiona nosis the left external carotid artery at its origin. Aneurysm clip distal right internal carotid artery causes streak artifact limiting evaluation at this level. Visualized portion of middle and anterior cerebral arteries bilaterally shows no significant stenosis or new aneurysmal change. Patent anterior indicating artery is seen. There is dominant left vertebral artery. Vertebral arteries are patent to basilar junction. There is no significant stenosis or aneurysmal change seen. There are hypoplastic bilateral posterior communic ating arteries noted. Other: Mild emphysematous change is present with mild biapical pleural/parenchymal scarring. IMPRESSION: 1. No significant stenosis in common or internal carotid arteries bilaterally. 2. Evidence of prior aneurysm clipping distal right internal carotid artery level without new aneurys m [place] clearly seen.
[2018-06-02 12:15] VITALS: BP 146/109; PULSE 73
== END 2018-06-02 12:28 | disposition short-term general hospital (02) ==
LOC: EC 10:28
DX: G45.9 Transient cerebral ischemic attack, unspecified (principal); R29.704 NIHSS score 4; R79.89 Other specified abnormal findings of blood chemistry; Z79.899 Other long term (current) drug therapy; Z88.5 Allergy status to narcotic agent; Z91.018 Allergy to other foods; Z85.828 Personal history of other malignant neoplasm of skin; Z87.891 Personal history of nicotine dependence; Z98.61 Coronary angioplasty status
CPT/HCPCS: 36415; 93005; 80053; 84484; 85025; 85610; 85730; 70496; 70450; 70498; 99285; Q9967

== ENCOUNTER 2018-12-12 18:30 | Observation (INO) | payer MEDICARE, OTHER ==
[2018-12-12] MEDS ORDERED: NITROGLYCERIN SL TABS 0.4 MG TAB SUBLINGUAL STA (19:06)
[2018-12-12] MEDS ORDERED: ASPIRIN 81 MG PO STA (19:06)
[2018-12-12 19:22] LABS: Basophils % (A) 0 %; Eosinophils # (A) 0.1 k/uL (0-0.7); Eosinophils % (A) 1 %; HCT 39.1 % (34.0-46.0); HGB 13.1 gm/dL (11.4-16.0); Lymphocytes # (A) 1.6 k/uL (1.0-4.8); Lymphocytes % (A) 28 %; MCHC 33.4 g/dL (31.0-37.0); MCV 86.7 fL (80.0-100.0); Mean Platelet Volume 6.5; Monocytes # (A) 0.3 k/uL (0-1.0); Monocytes % (A) 5 %; Neutrophils # (A) 3.5 k/uL (1.3-7.7); Neutrophils % (A) 64 %; Platelet Count 265 k/uL (150-450); RBC 4.51 m/uL (3.80-5.40); RDW 14.8 % (11.5-15.5); WBC 5.6 k/uL (3.8-10.6)
--- NOTE | 2018-12-12 19:30 | ED ---
Chest Pain HPI - General Chief Complaint: Chest Pain Stated Complaint: Chest Pain Time Seen by Provider: 12/12/18 18:53 Source: patient, EMS Mode of arrival: EMS Limitations: no limitations - History of Present Illness Initial Comments: Patient is a 83-year-old female presenting to emergency Department with a chief complaint of chest pain. Patient was brought to the ED via EMS. Patient reports she developed a sudden onset of substernal chest pain approximately one hour prior to ED arrival. Patient reports the pain was radiating to her ears and then quickly resolved. Patient reports she developed the same pain after several minutes without radiation. Patient reports in the ambulance ride the pain had resolved. Patient reports a mild episode of diaphoresis with the onset of pain. Patient reports the pain is not exacerbated on exertion. Patient denies any shortness of breath. Patient denies any nausea or vomiting. Patient denies any one-sided weakness or paresthesias. Patient denies any blurry vision or headache. Patient reports she was recently diagnosed with a hip and pelvis fracture and is currently on restrictions. Patient reports she feels dehydrated. Patient is a former smoker but denies hypertension or hypercholesterolemia. Patient denies a family history of cardiovascular disease. - Related Data Home Medications Medication Instructions Recorded Confirmed HYDROcodone/APAP 5-325MG [[place] 1 tab PO BID PRN 12/12/18 12/12/18 5-325] Temazepam [Restoril] 15 mg PO HS PRN 12/12/18 12/12/18 levETIRAcetam [Keppra] 1,000 mg PO Q12H 12/12/18 12/12/18 predniSONE 5 mg PO BID 12/12/18 12/12/18 Allergies Allergy/AdvReac Type Severity Reaction Status Date / Time gluten Allergy Unknown Verified 12/12/18 18:53 codeine AdvReac Nausea & Verified 12/12/18 18:53 Vomiting Review of Systems ROS Statement: Those systems with pertinent positive or pertinent negative responses have been documented in the HPI. ROS Other: All systems not noted in ROS Statement are negative. EKG Findings - EKG Comments: EKG Findings:: Normal sinus rhythm. Ventricular rate 76, [place] interval 174, QRS duration 74, QT/QTC 374/for 20,p-r-t axes 66 10 60 Past Medical History Past Medical History: Cancer, COPD, CVA/TIA, GERD/Reflux, Musculoskeletal Disorder, Neurologic Disorder, Pneumonia, Rheumatoid Arthritis (RA), Skin Disorder Additional Past Medical History / Comment(s): 2016 FALL/LT HIP FX(sx). 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 KIDNEY DX, PAD,"difficulty swallowing", uti-ecoli 2016, over active bladder wears a brief. History of Any Multi-Drug Resistant Organisms: None Reported Past Surgical History: Appendectomy, Hysterectomy Additional Past Surgical History / Comment(s): brain aneursym with surgery and angioplasty, aaa repair also, jani cataract, skin ca removed, lt breast bx and cyst removed, d&c, colonoscopy, orif lt hip, ORIF RT HIP, EGD Past Anesthesia/Blood Transfusion Reactions: No Reported Reaction Past Psychological History: No Psychological Hx Reported Smoking Status: Former smoker Past Alcohol Use History: None Reported Past Drug Use History: None Reported - Past Family History Mother Additional Family Medical History / Comment(s): BOWEL PROBLEMS/DIVERTICULAR DIEASE. LIVED TO BE 96 YEARS OLD Father History Unknown: Yes Additional Family Medical History / Comment(s): IN HIS SLEEEP AT AGE 86 Sister(s) Family Medical History: Cancer Additional Family Medical History / Comment(s): COLON Brother(s) Family Medical History: Cancer Additional Family Medical History / Comment(s): THROAT CANCER General Exam Limitations: no limitations General appearance: alert, in no apparent distress Head exam: Present: atraumatic, normocephalic, normal inspection Eye exam: Present: normal appearance, PERRL, EOMI Pupils: Present: normal accommodation ENT exam: Present: normal exam, normal oropharynx, mucous membranes moist, TM's normal bilaterally, normal external ear exam. Absent: mucous membranes dry (No signs of dehydration noted by the mucous members.) Respiratory exam: Present: normal lung sounds bilaterally Cardiovascular Exam: Present: regular rate, normal rhythm, normal heart sounds GI/Abdominal exam: Present: soft, normal bowel sounds Extremities exam: Present: normal inspection, tenderness (Left hip tenderness.), normal capillary refill, other (+2 ulnar and radial pulses bilaterally. +2 dorsalis pedis and posterior tibialis bilaterally.). Absent: full ROM (Limited range of motion of the left hip) Back exam: Present: normal inspection, full ROM Neurological exam: Present: alert, oriented X3 Psychiatric exam: Present: normal affect, normal mood Skin exam: Present: warm, intact, normal color Course Vital Signs 12/12/18 12/12/18 18:44 18:55 Temperature 97.2 F L Pulse Rate 76 Pulse Rate [ 87 [employer] ] Respiratory 18 Rate Blood Pressure 182/94 O2 Sat by Pulse 94 L Oximetry Chest Pain MDM - Differential Diagnosis ACS, Pleurisy-Other, GERD - MDM Patient is a 83-year-old female presenting to the emergency room with a chief complaint of chest pain. Patient was brought to the ED via EMS. Patient has substernal chest pain that initially radiated to the ears but resolved on the right to the ED. On initial evaluation patient denies any shortness of breath or chest pain. Cardiac workup initiated. EKG is indicative of sinus rhythm. Troponin is negative. CBC and CMP unremarkable. Patient does have COPD so naturally has lower oxygen saturation rates. Considering the patient's age and her comorbidities she will be admitted for serial troponins. Patient was also concern for constipation and has not had a bowel movement in 6 days. Patient reports taking milk of Magnesia and Colace with minimal improvement. Patient given mag citrate. Case discussed with Dr. Rae. Admitting physician is Dr. rouse. Cardiology consulted. Disposition Clinical Impression: Chest pain Disposition: ADMITTED IP TO THIS [facility] Condition: Stable Instructions (If sedation given, give patient instructions): Chest Pain (ED) Additional Instructions: Patient will be admitted. Is patient prescribed a controlled substance at d/c from ED?: No Referrals: Justyn Johnson DO [Primary Care Provider] - 1-2 days Time of Disposition: 21:14
[2018-12-12 19:31] LABS: Albumin 3.8 g/dL (3.5-5.0); INR 0.9 (<1.2); Magnesium 2.3 mg/dL (1.6-2.3); Partial Thromboplastin Time 22.1 sec (22.0-30.0); Potassium 4.7 mmol/L (3.5-5.1); Prothrombin Time 9.6 sec (9.0-12.0); Total Bilirubin 0.2 mg/dL (0.2-1.3); Total Protein 7.8 g/dL (6.3-8.2)
--- NOTE | 2018-12-12 19:31 | XR ---
EXAMINATION TYPE: XR chest 2V DATE OF EXAM: 12/12/2018 COMPARISON: 03/10/2018 HISTORY: Chest pain TECHNIQUE: Frontal and lateral views of the chest are obtained. FINDINGS: There is no heart failure nor confluent pneumonic infiltrate. There is slight blunting lef t gastric angle. Thoracic aorta is atheromatous. There are chest leads. There is osteopenia. There is anterior wedging of lower thoracic vertebra. IMPRESSION: There is mild pleural reaction at the lateral left lung base that is new compared to old exam. Normal heart. No heart failure.
[2018-12-12] MEDS ORDERED: MAGNESIUM CITRATE 296 ML BOTTLE PO ONE (21:07)
[2018-12-12] MEDS ORDERED: NALOXONE 0.4 MG/ML 1 ML VIAL IV PRN (21:14)
[2018-12-12] MEDS ORDERED: IBUPROFEN 400 MG TAB PO PRN (21:14)
[2018-12-12] MEDS ORDERED: ALPRAZolam 0.25 MG TAB PO PRN (21:14)
[2018-12-12] MEDS ORDERED: LOPERAMIDE 2 MG CAP PO ONE (21:14)
[2018-12-12] MEDS ORDERED: ACETAMINOPHEN TAB 325 MG TAB PO PRN (21:14)
[2018-12-13 07:17] VITALS: RESP 18
--- NOTE | 2018-12-13 07:53 | P.CRDCN ---
History of Present Illness Consult date: 12/13/18 Chief complaint: Chest pain History of present illness: This is a pleasant 83-year-old female patient with no significant past medical history who presented to the emergency room complaining of chest discomfort. The patient has been constipated and she did not have a bowel movement for a week. For the last few hours before she presented to the emergency room, she started experiencing discomfort in the chest, as a sharp kind of discomfort, without any radiation to the arm or neck or shoulders, and without any associated symptoms of sweating, shortness of breath, or nausea or vomiting. Subsequently she was admitted to observational unit to be ruled out for acute coronary event. While she is here, she received medication for constipation and subsequently she did have a poor movement with significant improvement in her symptoms. During this admission, the EKG showed sinus rhythm with nonspecific changes. The cardiac enzymes were checked and came in to be unremarkable. The patient was ruled out for acute coronary event. No prior history of coronary artery disease, congestive heart failure, or cardiac arrhythmia the patient of her seen by a professional poker player in the past. Currently she is chest pain-free. Otherwise she denies any fever or chills, abdominal discomfort, nausea or vomiting. She clearly states when she did have the bowel movement she felt much better and she continues to feel better. From the cardiovascular standpoint of view, the patient can be discharged home. We'll follow-up with the patient as an outpatient for possible stress test to rule out severe underlying coronary artery disease. Past Medical History Past Medical History: Cancer, COPD, CVA/TIA, GERD/Reflux, Musculoskeletal Disorder, Neurologic Disorder, Pneumonia, Rheumatoid Arthritis (RA), Skin Disor mehdi Additional Past Medical History / Comment(s): 2016 FALL/LT HIP FX(sx). 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 KIDNEY DX, PAD,"difficulty swallowing", uti-ecoli 2016, over active bladder wears a brief. History of Any Multi-Drug Resistant Organisms: None Reported Past Surgical History: Appendectomy, Hysterectomy Additional Past Surgical History / Comment(s): brain aneursym with surgery and angioplasty, aaa repair also, jani cataract, skin ca removed, lt breast bx and cyst removed, d&c, colonoscopy, orif lt hip, ORIF RT HIP, EGD Past Anesthesia/Blood Transfusion Reactions: No Reported Reaction Past Psychological History: No Psychological Hx Reported Additional Psychological History / Comment(s): . Smoking Status: Former smoker Past Alcohol Use History: None Reported Additional Past Alcohol Use History / Comment(s): started smoking at age 17, quit 2002, was smoking 5 cig per day Past Drug Use History: None Reported - Past Family History Mother Additional Family Medical History / Comment(s): BOWEL PROBLEMS/DIVERTICULAR DIEASE. LIVED TO BE 96 YEARS OLD Father History Unknown: Yes Additional Family Medical History / Comment(s): IN HIS SLEEEP AT AGE 86 Sister(s) Family Medical History: Cancer Additional Family Medical History / Comment(s): COLON Brother(s) Family Medical History: Cancer Additional Family Medical History / Comment(s): THROAT CANCER Medications and Allergies Home Medications Medication Instructions Recorded Confirmed Type HYDROcodone/APAP 5-325MG [[place] 1 tab PO BID PRN 12/12/18 12/12/18 History 5-325] Temazepam [Restoril] 15 mg PO HS PRN 12/12/18 12/12/18 History levETIRAcetam [Keppra] 1,000 mg PO Q12H 12/12/18 12/12/18 History predniSONE 5 mg PO BID 12/12/18 12/12/18 History Allergies Allergy/AdvReac Type Severity Reaction Status Date / Time gluten Allergy Unknown Verified 12/12/18 18:53 codeine AdvReac Nausea & Verified 12/12/18 18:53 Vomiting Physical Exam Vitals: Vital Signs Temp Pulse Pulse Pulse Resp BP BP 12/13/18 07:00 97.4 F L 73 18 12/13/18 03:55 97.5 F L 69 17 145/86 12/13/18 03:26 87 71 17 12/12/18 22:49 97.6 F 71 17 12/12/18 22:40 71 17 12/12/18 21:48 71 182 H 172/89 12/12/18 18:55 87 12/12/18 18:44 97.2 F L 76 18 182/94 BP Pulse Ox 12/13/18 07:00 123/74 96 12/13/18 03:55 97 12/13/18 03:26 12/12/18 22:49 178/93 98 12/12/18 22:40 12/12/18 21:48 95 12/12/18 18:55 12/12/18 18:44 94 L Intake and Output 12/12/18 12/13/18 12/13/18 22:59 06:59 14:59 Output Total 1 Balance -1 Output: Urine/Stool Mix 1 Other: # Voids 1 Weight 46.266 kg - Constitutional General appearance: no acute distress - Respiratory Respiratory: bilateral: CTA - Cardiovascular Rhythm: regular Heart sounds: normal: S1, S2 Results 12/12/18 18:15 12/12/18 18:15 Cardiac Enzymes 12/12/18 12/12/18 12/13/18 Range/Units 18:15 18:15 00:56 AST 26 (14-36) U/L Troponin I <0.012 <0.012 (0.000-0.034) ng/mL 12/13/18 Range/Units 05:16 AST (14-36) U/L Troponin I <0.012 (0.000-0.034) ng/mL Coagulation 12/12/18 Range/Units 18:15 PT 9.6 (9.0-12.0) sec APTT 22.1 (22.0-30.0) sec CBC 12/12/18 Range/Units 18:15 WBC 5.6 (3.8-10.6) k/uL RBC 4.51 (3.80-5.40) m/uL Hgb 13.1 (11.4-16.0) gm/dL Hct 39.1 (34.0-46.0) % Plt Count 265 (150-450) k/uL Comprehensive Metabolic Panel 12/12/18 Range/Units 18:15 Sodium 141 (137-145) mmol/L Potassium 4.7 (3.5-5.1) mmol/L Chloride 108 H (98-107) mmol/L Carbon Dioxide 25 (22-30) mmol/L BUN 44 H (7-17) mg/dL Creatinine 1.61 H (0.52-1.04) mg/dL Glucose 99 (74-99) mg/dL Calcium 9.0 (8.4-10.2) mg/dL AST 26 (14-36) U/L ALT 10 (9-52) U/L Alkaline Phosphatase 102 (38-126) U/L Total Protein 7.8 (6.3-8.2) g/dL Albumin 3.8 (3.5-5.0) g/dL Current Medications Generic Name Dose Route Start Last Admin Trade Name Freq PRN Reason Stop Dose Admin Acetaminophen 650 mg 12/12/18 21:14 Tylenol Tab PO Q6HR PRN Mild Pain or Fever > 100.5 Alprazolam 0.25 mg 12/12/18 21:14 Xanax PO Q6HR PRN Anxiety Ibuprofen 400 mg 12/12/18 21:14 Motrin PO Q6HR PRN Mild Pain or Fever > 100.5 Naloxone HCl 0.2 mg 12/12/18 21:14 Narcan IV Q2M PRN Opioid Reversal Intake and Output 12/12/18 12/13/18 12/13/18 22:59 06:59 14:59 Output Total 1 Balance -1 Output: Urine/Stool Mix 1 Other: # Voids 1 Weight 46.266 kg 12/12/18 18:15 12/12/18 18:15 Assessment and Plan Assessment: Assessment #1 constipation which has improved #2 atypical chest discomfort probably secondary to constipation Plan #1 acute coronary event was pulled out #2 severe coronary artery disease to be ruled out probably as an outpatient #3 from the cardiovascular standpoint of view the patient can be discharged home Thank you for allowing us participate in her care
[2018-12-13] MEDS ORDERED: levETIRAcetam 500 MG TAB PO SCH (10:00)
[2018-12-13 11:19] VITALS: BP 116/66; PULSE 77; TEMP 98
--- NOTE | 2018-12-13 20:24 | P.HPIM ---
History of Present Illness H&P Date: 12/13/18 Chief Complaint: Chest pain History of presenting complaint: This is a 83-year-old patient of Dr. Johnson. Chronic stable medical conditions include COPD, GERD, rheumatoid arthritis, lumbar radiculopathy diverticulosis. Patient presented after developing lower chest pain. Sharp in nature. The pain didn't radiate to both the ears. That did go down to both legs. Was no shortness of breath or dizziness no lightheadedness no perspiration. No nausea vomiting. Last anywhere from for 5 tenderness. Patient able to do her routine basis. Decided to come in to get checked out. Patient does have underlying celiac disease 2. Also got chronic urinary incontinence. No fever or chills. No cough no reflux. Also patient's last bowel movement was 7 days ago. Normally has a bowel movement every day. Review of systems: GEN.: None EYES: None HEENT: None NECK: None RESPIRATORY: None CARDIOVASCULAR: None GASTROINTESTINAL: None GENITOURINARY: Incontinence MUSCULOSKELETAL: Pain in joints LYMPHATICS: None HEMATOLOGICAL: None PSYCHIATRY: None NEUROLOGICAL: None Past medical history to include: COPD, GERD, rheumatoid arthritis, questionable stroke, pubic rami fracture, celiac disease, cerebral aneurysm and AAA repair, lumbar radiculopathy, 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 . Does use a wheelchair to get about activity. Family history: Throat cancer Physical examination: VITAL SIGNS: 97.2, 76, 18, 172/89, 94% room air GENERAL: BMI 7.5, laying in bed comfortable. EYES: Pupils equal. Conjunctiva normal. HEENT: External appearance of nose and ears normal, oral cavity grossly normal. NECK: JVD not raised; masses not palpable. HEART: First and second heart sounds are normal; no edema. LUNGS: Respiratory rate normal; clear to auscultation. ABDOMEN: Soft, nontender, liver spleen not palpable, no masses palpable. PSYCH: Alert and oriented x3; mood and affect normal. NEUROLOGICAL: Cranial nerves grossly intact; no facial asymmetry, power and sensation grossly intact. LYMPHATICS: No lymph nodes palpable in the axilla and neck MUSCULOSKELETAL: Evidence of arthritis especially in the hands Investigations: White count 5.6-year-old woman 30.1 potassium 4.7 bun 44 creatinine 1.61 Troponin 3 negative EKG tracing personally reviewed by me-normal sinus rhythm Chest x-ray film personally reviewed by me-shows prominent pulmonary artery, no obvious infiltrate Assessment: -Noncardiac sounding anterior chest wall pain. Given risk factor need to rule out a cardiac cause -COPD -GERD -Rheumatoid arthritis -Chronic celiac disease -Lumbar radiculopathy -Overactive bladder causing incontinence uses a brief -Acute constipation with no bowel movement for 7 days. The patient's had 2 good bowel movements this morning Plan: Home medications resumed. Cardiology was consulted. It was discussed with the patient. Troponins were negative. Past Medical History Past Medical History: Cancer, COPD, CVA/TIA, GERD/Reflux, Musculoskeletal Disorder, Neurologic Disorder, Pneumonia, Rheumatoid Arthritis (RA), Skin Disorder Additional Past Medical History / Comment(s): 2016 FALL/LT HIP FX(sx). 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 KIDNEY DX, PAD,"difficulty swallowing", uti-ecoli 2016, over active bladder wears a brief. History of Any Multi-Drug Resistant Organisms: None Reported Past Surgical History: Appendectomy, Hysterectomy Additional Past Surgical History / Comment(s): brain aneursym with surgery and angioplasty, aaa repair also, jani cataract, skin ca removed, lt breast bx and cyst removed, d&c, colonoscopy, orif lt hip, ORIF RT HIP, EGD Past Anesthesia/Blood Transfusion Reactions: No Reported Reaction Past Psychological History: No Psychological Hx Reported Additional Psychological History / Comment(s): . Smoking Status: Former smoker Past Alcohol Use History: None Reported Additional Past Alcohol Use History / Comment(s): started smoking at age 17, quit 2002, was smoking 5 cig per day Past Drug Use History: None Reported - Past Family History Mother Additional Family Medical History / Comment(s): BOWEL PROBLEMS/DIVERTICULAR DIEASE. LIVED TO BE 96 YEARS OLD Father History Unknown: Yes Additional Family Medical History / Comment(s): IN HIS SLEEEP AT AGE 86 Sister(s) Family Medical History: Cancer Additional Family Medical History / Comment(s): COLON Brother(s) Family Medical History: Cancer Additional Family Medical History / Comment(s): THROAT CANCER Medications and Allergies Home Medications Medication Instructions Recorded Confirmed Type levETIRAcetam [Keppra] 1,000 mg PO Q12H 12/12/18 12/12/18 History predniSONE 5 mg PO BID 12/12/18 12/12/18 History Aspirin 81 mg PO DAILY #1 chewable 12/13/18 Rx Polyethylene Glycol 3350 [Miralax] 17 gm PO DAILY PRN #15 packet 12/13/18 Rx Allergies Allergy/AdvReac Type Severity Reaction Status Date / Time gluten Allergy Unknown Verified 12/12/18 18:53 codeine AdvReac Nausea & Verified 12/12/18 18:53 Vomiting Physical Exam Vitals: Vital Signs Temp Pulse Pulse Pulse Resp BP BP 12/13/18 08:30 18 12/13/18 07:00 97.4 F L 73 18 12/13/18 03:55 97.5 F L 69 17 145/86 12/13/18 03:26 87 71 17 12/12/18 22:49 97.6 F 71 17 12/12/18 22:40 71 17 12/12/18 21:48 71 182 H 172/89 12/12/18 18:55 87 12/12/18 18:44 97.2 F L 76 18 182/94 BP Pulse Ox 12/13/18 08:30 12/13/18 07:00 123/74 96 12/13/18 03:55 97 12/13/18 03:26 12/12/18 22:49 178/93 98 12/12/18 22:40 12/12/18 21:48 95 12/12/18 18:55 12/12/18 18:44 94 L Intake and Output 12/12/18 12/13/18 12/13/18 22:59 06:59 14:59 Output Total 1 Balance -1 Output: Urine/Stool Mix 1 Other: Voiding Method Toilet # Voids 1 1 # Bowel Movements 1 Weight 46.266 kg Results CBC & Chem 7: 12/12/18 18:15 12/12/18 18:15 Labs: Abnormal Lab Results - Last 24 Hours (Table) 12/12/18 Range/Units 18:15 Chloride 108 H (98-107) mmol/L BUN 44 H (7-17) mg/dL Creatinine 1.61 H (0.52-1.04) mg/dL Thrombosis Risk Factor Assmnt - Choose All That Apply Any of the Below Risk Factors Present?: Yes Each Factor Represents 1 point: Acute SC Other Risk Factors: Yes Each Risk Factor Represents 2 Points: Patient confined to bed Each Risk Factor Represents 3 Points: Age 75 years or older Each Risk Factor Represents 5 Points: Hip, pelvis, or leg fracture (< 1 month) Thrombosis Risk Factor Assessment Total Risk Factor Score: 11 Thrombosis Risk Factor Assessment Level: High Risk
--- NOTE | 2018-12-13 20:27 | P.DS ---
Providers Date of admission: 12/12/18 20:47 Expected date of discharge: 12/13/18 Attending physician: Dileep Wilson Consults: 12/12/18 21:14 Consult Physician Stat Consulting Provider: Elvis Hurst Consult Reason/Comments: Chest pain, SC rule out. Do you want consulting provider notified?: Yes [facility] [place] [facility] Course: Chief Complaint: Chest pain Hospital course: This is a 83-year-old patient of Dr. Johnson. Chronic stable medical conditions include COPD, GERD, rheumatoid arthritis, lumbar radiculopathy diverticulosis. Patient presented after developing lower chest pain. Sharp in nature. The pain didn't radiate to both the ears. That did go down to both legs. Was no shortness of breath or dizziness no lightheadedness no perspiration. No nausea vomiting. Last anywhere from for 5 tenderness. Patient able to do her routine basis. Decided to come in to get checked out. Patient does have underlying celiac disease 2. Also got chronic urinary incontinence. No fever or chills. No cough no reflux. Also patient's last bowel movement was 7 days ago. Normally has a bowel movement every day. Patient is feeling much better after a bowel movement. Seen by cardiology. Not felt to be cardiac presentation. Patient is feeling back to baseline. Consultation: Dr. Lloyd from cardiology Physical examination: VITAL SIGNS: 98, 77, 18, 11 6/66, 95% room air GENERAL: BMI 7.5, laying in bed comfortable. EYES: Pupils equal. Conjunctiva normal. HEENT: External appearance of nose and ears normal, oral cavity grossly normal. NECK: JVD not raised; masses not palpable. HEART: First and second heart sounds are normal; no edema. LUNGS: Respiratory rate normal; clear to auscultation. ABDOMEN: Soft, nontender, liver spleen not palpable, no masses palpable. PSYCH: Alert and oriented x3; mood and affect normal. MUSCULOSKELETAL: Evidence of arthritis especially in the hands Investigations: White count 5.6-year-old woman 30.1 potassium 4.7 bun 44 creatinine 1.61 Troponin 3 negative EKG tracing personally reviewed by me-normal sinus rhythm Chest x-ray film personally reviewed by me-shows prominent pulmonary artery, no obvious infiltrate Discharge diagnosis: -Noncardiac sounding anterior chest wall pain. Given risk factor need to rule out a cardiac cause -COPD -GERD -Rheumatoid arthritis -Chronic celiac disease -Lumbar radiculopathy -Overactive bladder causing incontinence uses a brief -Acute constipation with no bowel movement for 7 days. The patient's had 2 good bowel movements this morning Disposition: Home. Patient Condition at Discharge: Stable Plan - Discharge Summary Discharge Rx Participant: No New Discharge Prescriptions: New Polyethylene Glycol 3350 [Miralax] 17 gm PO DAILY PRN #15 packet PRN Reason: Constipation Aspirin 81 mg PO DAILY #1 chewable Continue predniSONE 5 mg PO BID levETIRAcetam [Keppra] 1,000 mg PO Q12H Discontinued HYDROcodone/APAP 5-325MG [[place] 5-325] 1 tab PO BID PRN PRN Reason: Pain Temazepam [Restoril] 15 mg PO HS PRN PRN Reason: Insomnia Discharge Medication List levETIRAcetam [Keppra] 1,000 mg PO Q12H 12/12/18 [History] predniSONE 5 mg PO BID 12/12/18 [History] Aspirin 81 mg PO DAILY #1 chewable 12/13/18 [Rx] Polyethylene Glycol 3350 [Miralax] 17 gm PO DAILY PRN #15 packet 12/13/18 [Rx] Follow up Appointment(s)/Referral(s): Justyn Johnson DO [Primary Care Provider] - 1 Week Darshan Lloyd MD [STAFF PHYSICIAN] - 12/25/18 9:45 am (pt to follow up with [facility]/Dr. Lloyd) Patient Instructions/Handouts: Chest Pain (ED) Discharge Disposition: HOME SELF-CARE
[2018-12-13] MEDS ORDERED: predniSONE 5 MG TAB PO SCH (21:00)
== END 2018-12-13 12:40 | disposition home or self-care (01) ==
LOC: EC 18:30 → 1SOBS 20:47
PROVIDERS: ADMIT Hospitalist; ATTEND Hospitalist
DX: R07.89 Other chest pain (principal); R61 Generalized hyperhidrosis; K90.0 Celiac disease; I73.9 Peripheral vascular disease, unspecified; F17.290 Nicotine dependence, other tobacco product, uncomplicated; M06.9 Rheumatoid arthritis, unspecified; K21.9 Gastro-esophageal reflux disease without esophagitis; J44.9 Chronic obstructive pulmonary disease, unspecified; L98.9 Disorder of the skin and subcutaneous tissue, unspecified; N32.81 Overactive bladder; K57.90 Diverticulosis of intestine, part unspecified, without perforation or abscess without bleeding; M54.16 Radiculopathy, lumbar region; R32 Unspecified urinary incontinence; M19.042 Primary osteoarthritis, left hand; M19.041 Primary osteoarthritis, right hand; S32.509A Unspecified fracture of unspecified pubis, initial encounter for closed fracture; S72.009A Fracture of unspecified part of neck of unspecified femur, initial encounter for closed fracture; X58.XXXA Exposure to other specified factors, initial encounter; Z79.891 Long term (current) use of opiate analgesic; Z79.899 Other long term (current) drug therapy; Z88.5 Allergy status to narcotic agent; Z86.73 Personal history of transient ischemic attack (TIA), and cerebral infarction without residual deficits; Z86.79 Personal history of other diseases of the circulatory system; Z98.62 Peripheral vascular angioplasty status; Z87.01 Personal history of pneumonia (recurrent); Z85.828 Personal history of other malignant neoplasm of skin; Z85.528 Personal history of other malignant neoplasm of kidney; Z90.710 Acquired absence of both cervix and uterus; Z90.49 Acquired absence of other specified parts of digestive tract; Z87.440 Personal history of urinary (tract) infections; Z98.42 Cataract extraction status, left eye; Z98.41 Cataract extraction status, right eye; Z74.01 Bed confinement status; Z80.8 Family history of malignant neoplasm of other organs or systems; Z80.0 Family history of malignant neoplasm of digestive organs
CPT/HCPCS: 99285; 36415; 93005; 80053; 83735; 84484 ×2; 85025; 85610; 85730; 71046; G0378 ×2

== ENCOUNTER 2018-12-29 11:46 | Inpatient (IN) | payer MEDICARE, OTHER ==
[2018-12-29] MEDS ORDERED: ONDANSETRON 4 MG/2 ML VIAL IVP STA (12:12)
[2018-12-29] MEDS ORDERED: MORPHINE SULFATE 4 MG/ML SYRINGE IVP STA (12:12)
--- NOTE | 2018-12-29 12:32 | ED ---
General Adult HPI - General Chief complaint: Fall Stated complaint: Fall Time Seen by Provider: 12/29/18 12:05 Source: patient, EMS, RN notes reviewed Mode of arrival: EMS Limitations: no limitations - History of Present Illness Initial comments: 83-year-old female with a past medical history of COPD, CVA, GERD, left hip fracture, right hip fracture, pubic rami fracture presents to the emergency department for a chief complaint of fall. Patient states that she was using her walker when she tried to turn one way and her walker when turned the other way and Patient then fell. Patient does not believe she hit her head but states that her walker did hit her in the head. No loss of consciousness. No blood thinners. Patient's main complaint today is right hip and right knee pain. States it is painful to move the right hip as well as the right knee. States she has a history of 3 fractures in her pelvis. Denies any loss of sensation in the right leg.Patient has no other complaints at this time including shortness of breath, chest pain, abdominal pain, nausea or vomiting, headache, or visual changes. - Related Data Home Medications Medication Instructions Recorded Confirmed levETIRAcetam [Keppra] 1,000 mg PO Q12H 12/12/18 12/12/18 predniSONE 5 mg PO BID 12/12/18 12/12/18 Previous Rx's Medication Instructions Recorded Aspirin 81 mg PO DAILY #1 chewable 12/13/18 Polyethylene Glycol 3350 [Miralax] 17 gm PO DAILY PRN #15 packet 12/13/18 Allergies Allergy/AdvReac Type Severity Reaction Status Date / Time gluten Allergy Unknown Verified 12/12/18 18:53 codeine AdvReac Nausea & Verified 12/12/18 18:53 Vomiting Review of Systems ROS Statement: Those systems with pertinent positive or pertinent negative responses have been documented in the HPI. ROS Other: All systems not noted in ROS Statement are negative. Past Medical History Past Medical History: Cancer, COPD, CVA/TIA, GERD/Reflux, Musculoskeletal Disorder, Neurologic Disorder, Pneumonia, Rheumatoid Arthritis (RA), Skin Disorder Additional Past Medical History / Comment(s): 2016 FALL/LT HIP FX(sx). 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 KIDNEY DX, PAD,"difficulty swallowing", uti-ecoli 2016, over active bladder wears a brief. History of Any Multi-Drug Resistant Organisms: None Reported Past Surgical History: Appendectomy, Hysterectomy Additional Past Surgical History / Comment(s): brain aneursym with surgery and angioplasty, aaa repair also, jani cataract, skin ca removed, lt breast bx and cyst removed, d&c, colonoscopy, orif lt hip, ORIF RT HIP, EGD Past Anesthesia/Blood Transfusion Reactions: No Reported Reaction Past Psychological History: No Psychological Hx Reported Smoking Status: Former smoker Past Alcohol Use History: None Reported Past Drug Use History: None Reported - Past Family History Mother Additional Family Medical History / Comment(s): BOWEL PROBLEMS/DIVERTICULAR DIEASE. LIVED TO BE 96 YEARS OLD Father History Unknown: Yes Additional Family Medical History / Comment(s): IN HIS SLEEEP AT AGE 86 Sister(s) Family Medical History: Cancer Additional Family Medical History / Comment(s): COLON Brother(s) Family Medical History: Cancer Additional Family Medical History / Comment(s): THROAT CANCER General Exam - General Exam Comments Initial Comments: Right knee: Patient has about 20 flexion of the right knee. Patient has tenderness to the anterior aspect of the right knee with edema noted to the medial anterior aspect. No lacerations. Capillary refill less than 2 seconds and DP pulse 2+ in the right lower extremity. Right hip: Patient has pain with flexion of the right hip. No obvious contusions or ecchymosis. Tenderness to the lateral aspect. Limitations: no limitations General appearance: alert, in no apparent distress Head exam: Present: atraumatic, normocephalic, normal inspection Eye exam: Present: normal appearance, PERRL, EOMI. Absent: scleral icterus, conjunctival injection, periorbital swelling ENT exam: Present: normal exam, mucous membranes moist Neck exam: Present: tenderness (Generalized cervical tenderness), other (Patient in c-collar). Absent: meningismus, lymphadenopathy Respiratory exam: Present: normal lung sounds bilaterally. Absent: respiratory distress, wheezes, rales, rhonchi, stridor Cardiovascular Exam: Present: regular rate, normal rhythm, normal heart sounds. Absent: systolic murmur, diastolic murmur, rubs, gallop, clicks GI/Abdominal exam: Present: soft, normal bowel sounds. Absent: distended, tenderness, guarding, rebound, rigid Neurological exam: Present: alert, oriented X3, other (GCS 15) Course Vital Signs 12/29/18 12/29/18 12/29/18 11:50 12:58 14:00 Temperature 97.8 F Pulse Rate 73 82 Respiratory 17 16 16 Rate Blood Pressure 145/91 141/84 O2 Sat by Pulse 95 98 Oximetry 12/29/18 17:00 Temperature Pulse Rate 74 Respiratory 16 Rate Blood Pressure 116/69 O2 Sat by Pulse 97 Oximetry - Reevaluation(s) Reevaluation #1: 12/29/18 12:31 2 of morphine given within 50 minutes of arrival Medical Decision Making - Medical Decision Making 83-year-old female with multiple comorbidities presents for mechanical fall. Patient was using her walker when she tried to turn right in her walker did not. Patient's main complaint is her right hip and knee. Patient states her walker may have hit her in the head but otherwise did not hit her head or lose consciousness. CT brain was obtained which showed no acute cranial abnormality. CT cervical spine was obtained which showed no acute osseous lesion. There was incidental finding of aneurysmal dilation of the aortic arch, no chest pain or shortness of breath. On examination of the leg patient has very limited flexion of the right knee secondary to pain with moderate amount of edema noted to the medial aspect of the anterior right knee. Tenderness is noted to this area. Patient has lateral hip tenderness as well as limited range of motion. Right hip and pelvis x-ray were obtained which showed no acute osseous normality. However CT of the hip was ordered as patient continued to have pain and there is concern for occult fracture which was negative for acute fracture. X-ray of the right knee was obtained which shows findings suspicious for a nondisplaced tibial plateau fracture. This was confirmed with CT and appears non-depressed. Hemarthrosis noted. Patient's pain was controlled with her pain and Dilaudid. Evaluated patient and at this time she is unable to go home due to inability to bear weight or care for self. She requests Dr Rdz as she has had hip surgery from him in the past. I did speak with Dane was on-call. recommends patient be nonweightbearing with a knee immobilizer. Recommends a medicine admission as this is generally not a trauma and would be sent home if she was able to bear weight. - Lab Data Result diagrams: 12/29/18 12:30 12/29/18 12:30 Lab Results 12/29/18 12/29/18 12/29/18 Range/Units 12:10 12:30 12:30 WBC 8.2 (3.8-10.6) k/uL RBC 4.75 (3.80-5.40) m/uL Hgb 13.9 (11.4-16.0) gm/dL Hct 41.5 (34.0-46.0) % MCV 87.5 (80.0-100.0) fL MCH 29.4 (25.0-35.0) pg MCHC 33.6 (31.0-37.0) g/dL RDW 14.4 (11.5-15.5) % Plt Count 266 (150-450) k/uL Neutrophils % 82 % Lymphocytes % 13 % Monocytes % 4 % Eosinophils % 1 % Basophils % 0 % Neutrophils # 6.7 (1.3-7.7) k/uL Lymphocytes # 1.1 (1.0-4.8) k/uL Monocytes # 0.4 (0-1.0) k/uL Eosinophils # 0.0 (0-0.7) k/uL Basophils # 0.0 (0-0.2) k/uL PT (9.0-12.0) sec INR (<1.2) APTT (22.0-30.0) sec Sodium 141 (137-145) mmol/L Potassium 5.2 H (3.5-5.1) mmol/L Chloride 108 H (98-107) mmol/L Carbon Dioxide 23 (22-30) mmol/L Anion Gap 10 mmol/L BUN 38 H (7-17) mg/dL Creatinine 1.57 H (0.52-1.04) mg/dL Est GFR (CKD-EPI)AfAm 35 (>60 ml/min/1.73 sqM) Est GFR (CKD-EPI)NonAf 30 (>60 ml/min/1.73 sqM) Glucose 103 H (74-99) mg/dL Calcium 10.0 (8.4-10.2) mg/dL Total Bilirubin 0.4 (0.2-1.3) mg/dL AST 36 (14-36) U/L ALT 17 (9-52) U/L Alkaline Phosphatase 117 (38-126) U/L Total Protein 8.7 H (6.3-8.2) g/dL Albumin 4.3 (3.5-5.0) g/dL Urine Color Light Yellow Urine Appearance Clear (Clear) Urine pH 7.0 (5.0-8.0) Ur Specific [place] 1.006 (1.001-1.035) Urine Protein Negative (Negative) Urine Glucose (UA) Negative (Negative) Urine Ketones Negative (Negative) Urine Blood Negative (Negative) Urine Nitrite Negative (Negative) Urine Bilirubin Negative (Negative) Urine Urobilinogen <2.0 (<2.0) mg/dL Ur Leukocyte Esterase Small H (Negative) Urine WBC 1 (0-5) /hpf Ur Squamous Epith Cells <1 (0-4) /hpf 12/29/18 Range/Units 12:30 WBC (3.8-10.6) k/uL RBC (3.80-5.40) m/uL Hgb (11.4-16.0) gm/dL Hct (34.0-46.0) % MCV (80.0-100.0) fL MCH (25.0-35.0) pg MCHC (31.0-37.0) g/dL RDW (11.5-15.5) % Plt Count (150-450) k/uL Neutrophils % % Lymphocytes % % Monocytes % % Eosinophils % % Basophils % % Neutrophils # (1.3-7.7) k/uL Lymphocytes # (1.0-4.8) k/uL Monocytes # (0-1.0) k/uL Eosinophils # (0-0.7) k/uL Basophils # (0-0.2) k/uL PT 9.5 (9.0-12.0) sec INR 0.9 (<1.2) APTT 22.3 (22.0-30.0) sec Sodium (137-145) mmol/L Potassium (3.5-5.1) mmol/L Chloride (98-107) mmol/L Carbon Dioxide (22-30) mmol/L Anion Gap mmol/L BUN (7-17) mg/dL Creatinine (0.52-1.04) mg/dL Est GFR (CKD-EPI)AfAm (>60 ml/min/1.73 sqM) Est GFR (CKD-EPI)NonAf (>60 ml/min/1.73 sqM) Glucose (74-99) mg/dL Calcium (8.4-10.2) mg/dL Total Bilirubin (0.2-1.3) mg/dL AST (14-36) U/L ALT (9-52) U/L Alkaline Phosphatase (38-126) U/L Total Protein (6.3-8.2) g/dL Albumin (3.5-5.0) g/dL Urine Color Urine Appearance (Clear) Urine pH (5.0-8.0) Ur Specific [place] (1.001-1.035) Urine Protein (Negative) Urine Glucose (UA) (Negative) Urine Ketones (Negative) Urine Blood (Negative) Urine Nitrite (Negative) Urine Bilirubin (Negative) Urine Urobilinogen (<2.0) mg/dL Ur Leukocyte Esterase (Negative) Urine WBC (0-5) /hpf Ur Squamous Epith Cells (0-4) /hpf Disposition Clinical Impression: Tibial plateau fracture, right Disposition: ADMITTED IP TO THIS [facility] Condition: Fair Is patient prescribed a controlled substance at d/c from ED?: No Referrals: Justyn Johnson DO [Primary Care Provider] - 1-2 days Time of Disposition: 17:53
--- NOTE | 2018-12-29 13:40 | CT ---
EXAMINATION TYPE: CT brain derik bailey con DATE OF EXAM: 12/29/2018 COMPARISON: Previous CT scan of the brain dated 06/02/2018. HISTORY: Fall today. Head injury CT DLP: 1346.7 mGycm Automated exposure control for dose reduction was used. TECHNIQUE: CT scan of the head and cervical spine are performed without contrast. FINDINGS: BRAIN: There is been a previous right temporal craniotomy and aneurysm clipping in the benton of Will is. This is causing mild streak artifact through this region. There are diffuse changes of sulcal prominence and ventriculomegaly, compatible with atrophic change. There is diffuse periventricular white matter lucency, compatible with chronic white matter ischemic change. There is no acute focal lesion, mass effect or midline shift identified. I do not see eviden ce of intracranial blood. Visualized portions of the paranasal sinuses and mastoids are clear. IMPRESSION: 1. NO ACUTE INTRACRANIAL ABNORMALITY. 2. POSTSURGICAL CHANGE. 3. ATROPHIC CHANGE. 4. CHRONIC WHITE MATTER ISCHEMIC CHANGE. CERVICAL SPINE: There is aneurysmal dilatation of the arch of aorta which is moderately calcified. Ma ximal transverse diameter is 3.5 cm. There is mild emphysematous changes within the visualized portions of the lungs. Small right effusion . Prevertebral soft tissues appear normal. There is a minor degenerative grade 1 spondylolisthesis of C3 on C4. Alignment is otherwise maintaine d. Vertebral body height is maintained. Atlantoaxial relationships are normal. There is degenerative disc disease and hypertrophic spondylosis at C4-5, C5-6 and C6-7. There is unco vertebral joint disease at these levels. There is fairly marked facet hypertrophic change present at C3-4 on the right at C4-5 on the left there is intervertebral foraminal narrowing on the right at C3- 4 and on the left at C4-5. There is bilateral intervertebral foraminal narrowing at C5-6. No definite protrusion is seen. No fractures identified. IMPRESSION: 1. NO ACUTE OSSEOUS LESION. 2. MODERATE DEGENERATIVE CHANGES WITHIN THE CERVICAL SPINE. 3. MULTILEVEL INTERVERTEBRAL FORAMINAL NARROWING. 4. ANEURYSMAL DILATATION OF THE AORTIC ARCH. 6. EMPHYSEMATOUS CHANGES WITHIN THE LUNGS.
--- NOTE | 2018-12-29 14:21 | XR ---
EXAMINATION TYPE: XR femur RT DATE OF EXAM: 12/29/2018 COMPARISON: None HISTORY: Pain TECHNIQUE: 2 view right femur FINDINGS: Femoral head articulates with the acetabulum. Joint space appears preserved. No acute fract ure or dislocation is evident. The knee joint space appears unremarkable. A fluid fluid levels within the knee. Correlate for occult fracture. MRI could be utilized for additional evaluation of the knee. IMPRESSION: 1. There is a fluid fluid level within the suprapatellar joint space. Correlate for an occult fractu re or soft tissue injury within the joint space. MRI could be utilized to evaluate the soft tissue. 2. Displaced acute fracture is not identified.
[2018-12-29 14:35] LABS: Basophils % (A) 0 %; Eosinophils % (A) 1 %; HCT 41.5 % (34.0-46.0); HGB 13.9 gm/dL (11.4-16.0); Lymphocytes # (A) 1.1 k/uL (1.0-4.8); Lymphocytes % (A) 13 %; MCH 29.4 pg (25.0-35.0); MCHC 33.6 g/dL (31.0-37.0); MCV 87.5 fL (80.0-100.0); Mean Platelet Volume 7.5; Monocytes # (A) 0.4 k/uL (0-1.0); Monocytes % (A) 4 %; Neutrophils # (A) 6.7 k/uL (1.3-7.7); Neutrophils % (A) 82 %; Platelet Count 266 k/uL (150-450); RBC 4.75 m/uL (3.80-5.40); RDW 14.4 % (11.5-15.5); WBC 8.2 k/uL (3.8-10.6)
--- NOTE | 2018-12-29 14:39 | XR ---
EXAMINATION TYPE: XR Hip RT and AP Pelvis DATE OF EXAM: 12/29/2018 COMPARISON: None HISTORY: Pain in right hip, fall TECHNIQUE: Right hip is examined in 2 views and supplemented with an AP pelvis. FINDINGS: Left hip pins are present. The femoral heads articulate with the acetabulum. Joint spaces a re preserved. No acute fractures are evident. Normal bowel gas within the pelvis The right hip appears intact. No acute fracture or dislocation is evident. Vascular calcification is noted. IMPRESSION: 1. No acute osseous abnormality right hip.
--- NOTE | 2018-12-29 14:40 | XR ---
EXAMINATION TYPE: XR knee 4V RT DATE OF EXAM: 12/29/2018 COMPARISON: Right femur same date HISTORY: Fall, pain TECHNIQUE: 4 view right knee FINDINGS: There is a very subtle lucency along the medial tibial plateau. A tibial plateau fracture s hould be considered. CT could be performed for confirmation. There is a fluid fluid level within the joint space suspicious for hemorrhage within the joint space. Joint spaces are preserved. No additional areas suspicious for fracture is identified. Structures are slightly osteopenic. IMPRESSION: 1. Findings suspicious for a nondisplaced tibial plateau fracture of the medial tibial plateau. CT c ould be performed for confirmation. 2. Blood fluid level likely present within the suprapatellar space.
[2018-12-29 14:44] LABS: Albumin 4.3 g/dL (3.5-5.0); Potassium 5.2 mmol/L (3.5-5.1); Total Bilirubin 0.4 mg/dL (0.2-1.3); Total Protein 8.7 g/dL (6.3-8.2)
[2018-12-29 14:46] LABS: INR 0.9 (<1.2); Partial Thromboplastin Time 22.3 sec (22.0-30.0); Prothrombin Time 9.5 sec (9.0-12.0)
[2018-12-29 14:47] LABS: Appearance,Urine Clear (Clear); Bilirubin,Urine Negative (Negative); Blood,Urine Negative (Negative); Color,Urine Light Yellow; Glucose,Urine (UA) Negative (Negative); Ketones,Urine Negative (Negative); Leukocyte Esterase,Urine Small (Negative); Nitrite,Urine Negative (Negative); Protein,Urine Negative (Negative); Specific Gravity,Urine 1.006 (1.001-1.035); Squamous Epithelial Cell,Urine <1 /hpf (0-4); Urobilinogen,Urine <2.0 mg/dL (<2.0); WBC,Urine 1 /hpf (0-5)
--- NOTE | 2018-12-29 16:08 | CT ---
EXAMINATION TYPE: CT knee RT wo con DATE OF EXAM: 12/29/2018 COMPARISON: Plain films earlier in the day HISTORY: PT fall. Rt side knee pain. Poss tibial plateau fx. CT DLP: 97.3 mGycm Automated exposure control for dose reduction was used. Technique: Axial images 3 mm thick sections. Reconstructed images in the coronal and sagittal planes. FINDINGS: There is a medial tibial plateau fracture. Fracture lines extend from the tibial spine to the tibial metaphysis. This is nondepressed. The major fracture line appears to be along the transverse directio n from the tibial spine towards the metaphysis. This is primarily intra-articular. Structures are north ewhat osteopenic making evaluation of the fracture line somewhat difficult. The lateral tibial plateau appears intact. The joint space appears preserved. The patient's hemarthro sis is evident. Distal quadriceps tendon and patellar tendon appear normal as visualized. IMPRESSION: 1. MEDIAL TIBIAL PLATEAU FRACTURE. THIS APPEARS NON-DEPRESSED. 2. HEMARTHROSIS.
--- NOTE | 2018-12-29 17:04 | CT ---
EXAMINATION TYPE: CT hip RT wo con DATE OF EXAM: 12/29/2018 COMPARISON: 12/29/2018 femur and right hip HISTORY: Pt fall, pain RT side CT DLP: 420.5 mGycm Automated exposure control for dose reduction was used. The graft technique: Axial images 3 mm thick sections. Reconstructed images in the coronal and sagittal plane. FINDINGS: The femoral head articulates with the acetabulum. No acute fractures are evident. Vascular calcification is noted. Some joint space narrowing is present. Note is made of sacroiliac tushar int degenerative change and vacuum phenomenon. Degenerative disc changes are present L4-5 L5-S1. Grad e 1 spondylolisthesis of L4 anterior on L5 is present. IMPRESSION: NO ACUTE OSSEOUS ABNORMALITY RIGHT HIP.
[2018-12-29] MEDS ORDERED: HYDROmorphone 0.5 MG/0.5 ML SYRINGE IVP STA (17:44)
[2018-12-29] MEDS ORDERED: NALOXONE 0.4 MG/ML 1 ML VIAL IV PRN (17:45)
[2018-12-29] MEDS ORDERED: ONDANSETRON 4 MG/2 ML VIAL IVP PRN (17:47)
[2018-12-29] MEDS: SODIUM CHLORIDE 0.9% 1,000 ML IV SCH (19:01)
[2018-12-29] MEDS ORDERED: TEMAZEPAM 15 MG CAP PO PRN (21:13)
[2018-12-29] MEDS: HYDROmorphone 0.5 MG/0.5 ML SYRINGE IVP PRN (21:48)
[2018-12-29] MEDS: levETIRAcetam 500 MG TAB PO SCH ×2 (22:00→22:07)
[2018-12-29] MEDS: predniSONE 5 MG TAB PO SCH ×3 (22:50→23:01)
[2018-12-30] MEDS: HYDROmorphone 0.5 MG/0.5 ML SYRINGE IVP PRN ×2 (03:54→07:58)
[2018-12-30] MEDS: levETIRAcetam 500 MG TAB PO SCH ×2 (07:58→21:02)
[2018-12-30] MEDS: predniSONE 5 MG TAB PO SCH ×2 (08:00→21:03)
--- NOTE | 2018-12-30 08:11 | XR ---
EXAMINATION TYPE: XR foot complete RT , 3 VIEWS DATE OF EXAM ORDERED: 12/30/2018 HISTORY: new onset of right foot pain . COMPARISON: None. FINDINGS: There is a moderate hallux valgus deformity. There are moderate degenerative changes in th e right first MTP joint. There is some are vascular calcifications. No fracture is seen. IMPRESSION: 1. NO ACUTE OSSEOUS LESION. 2. DEGENERATIVE CHANGE.
[2018-12-30] MEDS ORDERED: CIPROFLOXACIN HCL 250 MG TAB PO SCH (09:00)
[2018-12-30 10:49] VITALS: BMI 17.8
--- NOTE | 2018-12-30 13:12 | P.CNOR ---
History of Present Illness - [facility] Consult date: 12/30/18 Consult reason: fracture History of present illness: Patient is an 83-year-old female who was brought to [facility] yesterday afternoon after falling in her bathroom at home. Patient lost her bal ance and fell on her right side. She had a significant pain involving the right knee, she was brought to the hospital. Upon arrival multiple labs and imaging studies were done. Images demonstrated a nondisplaced medial tibial plateau fracture of the right knee. I was contacted by the emergency room staff regarding the case, was able to review the images with my attending Dr. Rdz. Patient was admitted under internal medicine, our team was placed on consult for further evaluation. Patient was evaluated at bedside today, her is present at bedside. She is utilizing the immobilizer, she is nonweightbearing. She does note some discomfort in the right foot, I was able to review those images which were negative for any acute fractures or dislocations. She is obvious posterior arthritic changes throughout the foot. All other x-rays were negative. She notes most discomfort in the right knee when she attempts to move the leg. She denies any hip pain at this time, new onset lumbar, thoracic or cervical pain. Review of Systems Constitutional: Reports as per HPI Past Medical History Past Medical History: Cancer, COPD, CVA/TIA, GERD/Reflux, Musculoskeletal Disorder, Neurologic Disorder, Pneumonia, Rheumatoid Arthritis (RA), Skin Disorder Additional Past Medical History / Comment(s): 2016 FALL/LT HIP FX(sx). 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 KIDNEY DX, PAD,"difficulty swallowing", uti-ecoli 2016, over active bladder wears a brief. History of Any Multi-Drug Resistant Organisms: None Reported Past Surgical History: Appendectomy, Hysterectomy Additional Past Surgical History / Comment(s): brain aneursym with surgery and angioplasty, aaa repair also, jani cataract, skin ca removed, lt breast bx and cyst removed, d&c, colonoscopy, orif lt hip, ORIF RT HIP, EGD Past Anesthesia/Blood Transfusion Reactions: No Reported Reaction Past Psychological History: No Psychological Hx Reported Additional Psychological History / Comment(s): . Smoking Status: Never smoker Past Alcohol Use History: None Reported Additional Past Alcohol Use History / Comment(s): started smoking at age 17, quit 2002, was smoking 5 cig per day Past Drug Use History: None Reported - Past Family History Mother Additional Family Medical History / Comment(s): BOWEL PROBLEMS/DIVERTICULAR DIEASE. LIVED TO BE 96 YEARS OLD Father History Unknown: Yes Additional Family Medical History / Comment(s): IN HIS SLEEEP AT AGE 86 Sister(s) Family Medical History: Cancer Additional Family Medical History / Comment(s): COLON Brother(s) Family Medical History: Cancer Additional Family Medical History / Comment(s): THROAT CANCER Medications and Allergies Home Medications Medication Instructions Recorded Confirmed Type levETIRAcetam [Keppra] 1,000 mg PO Q12H 12/12/18 12/29/18 History predniSONE 5 mg PO BID 12/12/18 12/29/18 History Ciprofloxacin HCl [Cipro] 250 mg PO Q12HR 12/29/18 12/29/18 History HYDROcodone/APAP 5-325MG [[place] 1 tab PO BID PRN 12/29/18 12/29/18 History 5-325] Temazepam [Restoril] 15 mg PO HS PRN 12/29/18 12/29/18 History Allergies Allergy/AdvReac Type Severity Reaction Status Date / Time gluten Allergy Unknown Verified 12/29/18 18:01 codeine AdvReac Nausea & Verified 12/29/18 18:01 Vomiting Physical Examination Right lower extremity: I was able to remove the knee immobilizer, there is an obvious effusion of the knee. There is no obvious open lesions, ecchymosis or skin changes. Range of motion was not assessed the knee. Her sensation to light touch throughout extremities intact. Calf is soft, no tenderness with palpation. Logroll maneuver of the hip reproduces no pain. Plantar flexion, dorsiflexion, EHL, FHL are intact, sensory exam to light touch is intact about the extremity. Dorsal pedis pulses 2+. Results - Labs Labs: Abnormal Lab Results - Last 24 Hours (Table) 12/29/18 12/29/18 Range/Units 12:10 12:30 Potassium 5.2 H (3.5-5.1) mmol/L Chloride 108 H (98-107) mmol/L BUN 38 H (7-17) mg/dL Creatinine 1.57 H (0.52-1.04) mg/dL Glucose 103 H (74-99) mg/dL Total Protein 8.7 H (6.3-8.2) g/dL Ur Leukocyte Esterase Small H (Negative) H & H 12/29/18 Range/Units 12:30 Hgb 13.9 (11.4-16.0) gm/dL Hct 41.5 (34.0-46.0) % Coagulation 12/29/18 Range/Units 12:30 INR 0.9 (<1.2) Result Diagrams: 12/29/18 12:30 12/29/18 12:30 Assessment and Plan Plan: Imaging: Multiple images were reviewed of the right lower extremity and pelvis. Images demonstrate no acute fractures or dislocations. Evidence of previous percutaneous screws involving the left hip, those are stable. X-rays and CT of the knee were reviewed, nondisplaced medial tibial plateau fracture is noted. Assessment: 1. Nondisplaced right knee medial tibial plateau fracture 2. Status post fall from standing 3. Other medical comorbidities Plan: I was able to discuss the case, including with physical exam findings and imag ing studies with my attending Dr. Rdz. Nor orthopedic surgical intervention needed at this time. Recommend use of the knee immobilizer at all times. Recommend nonweightbearing at this time. Ice and elevate often, considering possible aspiration knee effusion continues to be symptomatic. Recommend stay at rehab due to the need for help with ADLs. Other medical claims representative recommendations We will continue to follow patient during inpatient stay Time with Patient: Less than 30
--- NOTE | 2018-12-30 16:03 | P.HPIM ---
History of Present Illness H&P Date: 12/30/18 Chief Complaint: Fall History of presenting complaint: This is a 83-year-old patient of Dr. Johnson. Chronic stable medical conditions include COPD, GERD, rheumatoid arthritis, celiac disease, chronic urinary incontinence, lumbar radiculopathy , diverticulosis. Patient does use a walker. Patient was making a turn on a walker lost her balance and took a fall. This was purely a mechanical fall. There was no preceding chest pain and palpitation dizziness or lightheadedness. Dr. Sharp was called from the ER because patient has suffered a fracture. He wanted the patient admitted to medical service. Patient was found to have nondisplaced medial tibial plateau fracture of the right knee area she has been placed in the immobilizer which is nonweightbearing. Patient also been complaining of pain in the right foot. X- ray did not reveal any fracture. Review of systems: GEN.: None EYES: None HEENT: None NECK: None RESPIRATORY: None CARDIOVASCULAR: None GASTROINTESTINAL: None GENITOURINARY: Incontinence MUSCULOSKELETAL: Pain in the above joints LYMPHATICS: None HEMATOLOGICAL: None PSYCHIATRY: None NEUROLOGICAL: None Past medical history to include: COPD, GERD, rheumatoid arthritis, questionable stroke, pubic rami fracture, celiac disease, cerebral aneurysm and AAA repair, lumbar radiculopathy, 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 . Does use a wheelchair/walker to get about activity. Family history: Throat cancer Physical examination: VITAL SIGNS: 97.7, 94, 18, 11 5/70, 92% on room air GENERAL: BMI 17.9, laying in bed EYES: Pupils equal. Conjunctiva normal. HEENT: External appearance of nose and ears normal, oral cavity grossly normal. NECK: JVD not raised; masses not palpable. HEART: First and second heart sounds are normal; no edema. LUNGS: Respiratory rate normal; clear to auscultation. ABDOMEN: Soft, nontender, liver spleen not palpable, no masses palpable. PSYCH: Alert and oriented x3; mood and affect normal. NEUROLOGICAL: Cranial nerves grossly intact; no facial asymmetry, power and sensation grossly intact. LYMPHATICS: No lymph nodes palpable in the axilla and neck MUSCULOSKELETAL: Evidence of arthritis especially in the hands, brace on the right leg Investigations: White count 8.2 hemoglobin 13.9 platelets 266 potassium 5.2 being 38 creatinine 1.57 Radiological studies included Computed tomography scan, and the computed tomography scan, and the x-ray, AP pelvis x-ray, fever x-ray, head cervical sp ine CT-results of which were noted. Assessment: -Right medial tibial plateau fracture with associated hemarthrosis -COPD -GERD -Rheumatoid arthritis -Chronic celiac disease -Lumbar radiculopathy -Overactive bladder causing incontinence uses a brief -Chronic diverticulosis Plan: Patient seen the orthopedic team. No surgical intervention. Discussed with the patient and . We'll looking patient going for inpatient rehab. As patient will be able to manage by herself. Home medications resumed. Lovenox for DT prophylaxis. Questions were answered. Past Medical History Past Medical History: Cancer, COPD, CVA/TIA, GERD/Reflux, Musculoskeletal D isorder, Neurologic Disorder, Pneumonia, Rheumatoid Arthritis (RA), Skin Disorder Additional Past Medical History / Comment(s): 2016 FALL/LT HIP FX(sx). 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 KIDNEY DX, PAD,"difficulty swallowing", uti-ecoli 2016, over active bladder wears a brief. History of Any Multi-Drug Resistant Organisms: None Reported Past Surgical History: Appendectomy, Hysterectomy Additional Past Surgical History / Comment(s): brain aneursym with surgery and angioplasty, aaa repair also, jani cataract, skin ca removed, lt breast bx and cyst removed, d&c, colonoscopy, orif lt hip, ORIF RT HIP, EGD Past Anesthesia/Blood Transfusion Reactions: No Reported Reaction Past Psychological History: No Psychological Hx Reported Additional Psychological History / Comment(s): . Smoking Status: Never smoker Past Alcohol Use History: None Reported Additional Past Alcohol Use History / Comment(s): started smoking at age 17, quit 2002, was smoking 5 cig per day Past Drug Use History: None Reported - Past Family History Mother Additional Family Medical History / Comment(s): BOWEL PROBLEMS/DIVERTICULAR DIEASE. LIVED TO BE 96 YEARS OLD Father History Unknown: Yes Additional Family Medical History / Comment(s): IN HIS SLEEEP AT AGE 86 Sister(s) Family Medical History: Cancer Additional Family Medical History / Comment(s): COLON Brother(s) Family Medical History: Cancer Additional Family Medical History / Comment(s): THROAT CANCER Medications and Allergies Home Medications Medication Instructions Recorded Confirmed Type levETIRAcetam [Keppra] 1,000 mg PO Q12H 12/12/18 12/29/18 History predniSONE 5 mg PO BID 12/12/18 12/29/18 History Ciprofloxacin HCl [Cipro] 250 mg PO Q12HR 12/29/18 12/29/18 History HYDROcodone/APAP 5-325MG [[place] 1 tab PO BID PRN 12/29/18 12/29/18 History 5-325] Temazepam [Restoril] 15 mg PO HS PRN 12/29/18 12/29/18 History Allergies Allergy/AdvReac Type Severity Reaction Status Date / Time gluten Allergy Unknown Verified 12/29/18 18:01 codeine AdvReac Nausea & Verified 12/29/18 18:01 Vomiting Physical Exam Vitals: Vital Signs Temp Pulse Pulse Resp BP BP Pulse Ox 12/30/18 05:41 97.7 F 18 115/70 92 L 12/29/18 23:00 97.7 F 94 16 140/66 91 L 12/29/18 19:03 97.8 F 91 16 154/80 98 12/29/18 17:57 98.2 F 96 18 175/85 97 12/29/18 17:00 74 16 116/69 97 12/29/18 14:00 82 16 141/84 98 12/29/18 12:58 16 12/29/18 11:50 97.8 F 73 17 145/91 95 Intake and Output 12/29/18 12/30/18 12/30/18 22:59 06:59 14:59 Other: Voiding Method Bedpan Results CBC & Chem 7: 12/29/18 12:30 12/29/18 12:30 Labs: Abnormal Lab Results - Last 24 Hours (Table) 12/29/18 12/29/18 Range/Units 12:10 12:30 Potassium 5.2 H (3.5-5.1) mmol/L Chloride 108 H (98-107) mmol/L BUN 38 H (7-17) mg/dL Creatinine 1.57 H (0.52-1.04) mg/dL Glucose 103 H (74-99) mg/dL Total Protein 8.7 H (6.3-8.2) g/dL Ur Leukocyte Esterase Small H (Negative) Thrombosis Risk Factor Assmnt - Choose All That Apply Each Risk Factor Represents 3 Points: Age 75 years or older Each Risk Factor Represents 5 Points: Hip, pelvis, or leg fracture (< 1 month) Thrombosis Risk Factor Assessment Total Risk Factor Score: 8 Thrombosis Risk Factor Assessment Level: High Risk
[2018-12-30] MEDS: ACETAMINOPHEN TAB 325 MG TAB PO PRN (19:25)
[2018-12-30] MEDS: SODIUM CHLORIDE 0.9% 1,000 ML IV SCH (20:10)
[2018-12-31] MEDS: levETIRAcetam 500 MG TAB PO SCH ×2 (07:31→20:46)
[2018-12-31] MEDS: ACETAMINOPHEN TAB 325 MG TAB PO PRN ×2 (07:31→20:46)
[2018-12-31] MEDS: predniSONE 5 MG TAB PO SCH ×2 (07:34→20:46)
--- NOTE | 2018-12-31 23:25 | P.PN ---
Progress Note - Text Progress Note Date: 12/31/18 Chief Complaint: Fall History of presenting complaint: This is a 83-year-old patient of Dr. Johnson. Chronic stable medical conditions include COPD, GERD, rheumatoid arthritis, celiac disease, chronic urinary incontinence, lumbar radiculopathy , diverticulosis. Patient does use a walker. Patient was making a turn on a walker lost her balance and took a fall. This was purely a mechanical fall. There was no preceding chest pain and palpitation dizziness or lightheadedness. Dr. Sharp was called from the ER because patient has suffered a fracture. He wanted the patient admitted to medical service. Patient was found to have nondisplaced medial tibial plateau fracture of the right knee area she has been placed in the immobilizer which is nonweightbearing. Patient also been complaining of pain in the right foot. X- ray did not reveal any fracture. today-laying bed. Comfortable. He does controlled. Starting a diet. No new issues. Review of systems: Was done for constitutional, cardiovascular, GI, pulmonary. relevant finding as above Active Medications Acetaminophen (Tylenol Tab) 650 mg PO Q6HR PRN PRN Reason: Mild Pain or Fever > 100.5 Last Admin: 12/31/18 20:46 Dose: 650 mg Documented by: Levetiracetam (Keppra) 1,000 mg PO Q12H [facility] Last Admin: 12/31/18 20:46 Dose: 1,000 mg Documented by: Naloxone HCl (Narcan) 0.2 mg IV Q2M PRN PRN Reason: Opioid Reversal Ondansetron HCl (Zofran) 4 mg IVP Q8H PRN PRN Reason: Nausea Last Admin: 12/29/18 21:59 Dose: 4 mg Documented by: Prednisone () 5 mg PO BID [facility] Last Admin: 12/31/18 20:46 Dose: 5 mg Documented by: Temazepam (Restoril) 15 mg PO HS PRN PRN Reason: Insomnia Physical examination: VITAL SIGNS: 98.2, 70, 17, 1 21 x 70, 97% on 2 L GENERAL: laying in bed, comfortable EYES: Pupils equal. Conjunctiva normal. HEENT: External appearance of nose and ears normal, oral cavity grossly normal. NECK: JVD not raised; masses not palpable. HEART: First and second heart sounds are normal; no edema. LUNGS: Respiratory rate normal; clear to auscultation. ABDOMEN: Soft, nontender, liver spleen not palpable, no masses palpable. PSYCH: Alert and oriented x3; mood and affect normal. in MUSCULOSKELETAL: Evidence of arthritis especially in the hands, brace on the right leg Investigations: White count 8.2 hemoglobin 13.9 platelets 266 potassium 5.2 being 38 creatinine 1.57 Radiological studies included Computed tomography scan, and the computed tomography scan, and the x-ray, AP pelvis x-ray, fever x-ray, head cervical spine CT-results of which were noted. Assessment: -Right medial tibial plateau fracture with associated hemarthrosis, not for surgical intervention as per orthopedics -COPD -GERD -Rheumatoid arthritis -Chronic celiac disease -Lumbar radiculopathy -Overactive bladder causing incontinence uses a brief -Chronic diverticulosis Plan: awaiting placement.medications to continue. Discussed with patient.
[2019-01-01 07:28] LABS: HGB 12.4 gm/dL (11.4-16.0); MCH 28.9 pg (25.0-35.0); MCHC 33.5 g/dL (31.0-37.0); MCV 86.2 fL (80.0-100.0); Mean Platelet Volume 5.7; Platelet Count 211 k/uL (150-450); RBC 4.29 m/uL (3.80-5.40); WBC 7.8 k/uL (3.8-10.6)
[2019-01-01 07:45] LABS: Calcium 9.2 mg/dL (8.4-10.2)
[2019-01-01] MEDS: levETIRAcetam 500 MG TAB PO SCH (08:22)
[2019-01-01] MEDS: predniSONE 5 MG TAB PO SCH (08:23)
[2019-01-01] MEDS: ACETAMINOPHEN TAB 325 MG TAB PO PRN (08:23)
[2019-01-01 10:21] LABS: Appearance,Urine Clear (Clear); Bilirubin,Urine Negative (Negative); Blood,Urine Negative (Negative); Color,Urine Colorless; Glucose,Urine (UA) Negative (Negative); Ketones,Urine Negative (Negative); Leukocyte Esterase,Urine Negative (Negative); Nitrite,Urine Negative (Negative); Protein,Urine Negative (Negative); Specific Gravity,Urine 1.008 (1.001-1.035); Urobilinogen,Urine <2.0 mg/dL (<2.0)
[2019-01-01 12:27] VITALS: BP 145/94; PULSE 89; RESP 17; TEMP 98.9
[2019-01-01] MEDS ORDERED: LISINOPRIL-HCTZ 10-12.5 MG 1 EACH TAB PO SCH (12:30)
--- NOTE | 2019-01-01 12:31 | P.DS ---
Providers Date of admission: 12/30/18 11:52 Expected date of discharge: 01/01/19 Attending physician: Dileep Wilson Consults: 12/29/18 17:46 Consult Physician Routine Consulting Provider: Jose Rdz Consult Reason/Comments: nondepressed tibial plateau fx Do you want consulting provider notified?: Yes Primary care physician: Justyn Johnson [facility] Hospital Course: Chief Complaint: Fall Hospital course: This is a 83-year-old patient of Dr. Johnson. Chronic stable medical conditions include COPD, GERD, rheumatoid arthritis, celiac disease, chronic urinary incontinence, lumbar radiculopathy , diverticulosis. Patient does use a walker. Patient was making a turn on a walker lost her balance and took a fall. This was purely a mechanical fall. There was no preceding chest pain and palpitation dizziness or lightheadedness. Dr. Sharp was called from the ER because patient has suffered a fracture. He wanted the patient admitted to medical service. Patient was found to have nondisplaced medial tibial plateau fracture of the right knee area she has been placed in the immobilizer which is nonweightbearing. Patient also been complaining of pain in the right foot. X- ray did not reveal any fracture. Seen by Dr. Sharp. Not for any surgical intervention. Care was discussed with the patient this morning. Questions were an swered. Also spoke social worker assistant and the nurse. Patient will go to rehab. Discussion and discharge planning more than 35 minutes Consultation: Dr. Sharp from orthopedics Physical examination: VITAL SIGNS: 98.9, 89, 17, 145/94, 95% room air GENERAL: laying in bed, comfortable EYES: Pupils equal. Conjunctiva normal. HEENT: External appearance of nose and ears normal, oral cavity grossly normal. NECK: JVD not raised; masses not palpable. HEART: First and second heart sounds are normal; no edema. LUNGS: Respiratory rate normal; clear to auscultation. ABDOMEN: Soft, nontender, liver spleen not palpable, no masses palpable. PSYCH: Alert and oriented x3; mood and affect normal. in MUSCULOSKELETAL: Evidence of arthritis especially in the hands, brace on the right leg Investigations: Potassium 4 bun 28 creatinine 1.33 Radiological studies included Computed tomography scan, and the computed tomography scan, and the x-ray, AP pelvis x-ray, fever x-ray, head cervical spine CT-results of which were noted. 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 Disposition: ECF/[facility] Patient Condition at Discharge: Stable Plan - Discharge Summary Discharge Rx Participant: No New Discharge Prescriptions: New Acetaminophen Tab [Tylenol] 650 mg PO Q6HR PRN tab PRN Reason: Mild Pain Or Fever > 100.5 Lisinopril-Hctz 10-12.5 mg [Zestoretic 10-12.5] 1 each PO BID #0 tab Continue predniSONE 5 mg PO BID levETIRAcetam [Keppra] 1,000 mg PO Q12H Changed Temazepam [Restoril] 7.5 mg PO HS PRN #3 cap PRN Reason: Insomnia Discontinued HYDROcodone/APAP 5-325MG [[place] 5-325] 1 tab PO BID PRN PRN Reason: Pain Ciprofloxacin HCl [Cipro] 250 mg PO Q12HR Discharge Medication List levETIRAcetam [Keppra] 1,000 mg PO Q12H 12/12/18 [History] predniSONE 5 mg PO BID 12/12/18 [History] Acetaminophen Tab [Tylenol] 650 mg PO Q6HR PRN tab 01/01/19 [Rx] Lisinopril-Hctz 10-12.5 mg [Zestoretic 10-12.5] 1 each PO BID #0 tab 01/01/19 [Rx] Temazepam [Restoril] 7.5 mg PO HS PRN #3 cap 01/01/19 [Rx] Follow up Appointment(s)/Referral(s): Justyn Johnson DO [Primary Care Provider] - As Needed Tiago Dunaway MD [STAFF PHYSICIAN] - 01/02/19 Jose Rdz DO [Doctor of Osteopathic Medicine] - 2 Weeks Activity/Diet/Wound Care/Special Instructions: Orthopedic discharge instructions: 1. Nonweightbearing right lower extremity 2. Utilize knee immobilizer at all times 3. Ice and elevate 4. Physical therapy okay to utilize upper body exercises 5. Plan for follow-up with Dr. Rdz in 2 weeks for x-ray evaluation
== END 2019-01-01 14:05 | DRG 563 ==
LOC: EC 11:46 → 3NMEDONC 18:26 → OBSVTOIN 12-30 11:52
PROVIDERS: ADMIT Hospitalist; ATTEND Hospitalist
DX: S82.141A Displaced bicondylar fracture of right tibia, initial encounter for closed fracture (principal); M25.00 Hemarthrosis, unspecified joint; W18.30XA Fall on same level, unspecified, initial encounter; Z87.891 Personal history of nicotine dependence; J44.9 Chronic obstructive pulmonary disease, unspecified; K21.9 Gastro-esophageal reflux disease without esophagitis; K57.90 Diverticulosis of intestine, part unspecified, without perforation or abscess without bleeding; K90.0 Celiac disease; M06.9 Rheumatoid arthritis, unspecified; M54.16 Radiculopathy, lumbar region; N32.81 Overactive bladder; R32 Unspecified urinary incontinence; Y92.002 Bathroom of unspecified non-institutional (private) residence as the place of occurrence of the external cause; Z79.82 Long term (current) use of aspirin; Z80.8 Family history of malignant neoplasm of other organs or systems; N18.3 Chronic kidney disease, stage 3 (moderate); Z85.828 Personal history of other malignant neoplasm of skin; Z86.73 Personal history of transient ischemic attack (TIA), and cerebral infarction without residual deficits; Z86.79 Personal history of other diseases of the circulatory system; Z90.710 Acquired absence of both cervix and uterus; Z98.42 Cataract extraction status, left eye; Z98.41 Cataract extraction status, right eye; Z88.5 Allergy status to narcotic agent; Z87.01 Personal history of pneumonia (recurrent); Z79.899 Other long term (current) drug therapy
CPT/HCPCS: 36415; 70450; 72125; 73502; 80048; 80053; 81001; 81003; 85025; 85027; 85610; 85730; 96374; 96375; 99285

== ENCOUNTER 2019-01-09 17:59 | Observation (INO) | payer MEDICARE, OTHER ==
[2019-01-09] MEDS ORDERED: SODIUM CHLORIDE 0.9% 1,000 ML IV STA (18:18)
--- NOTE | 2019-01-09 18:22 | ED ---
General Adult HPI - General Chief complaint: Recheck/Abnormal Lab/Rx Stated complaint: renal failure Time Seen by Provider: 01/09/19 18:02 Source: patient, EMS, RN notes reviewed Mode of arrival: EMS Limitations: no limitations - History of Present Illness Initial comments: Patient is a pleasant 83-year-old female presenting to the emergency department secondary to renal failure and elevated couple level. Patient states she feels fine and has no complaints. Patient states she did have a recent fall around a week ago and did fracture near her right knee. Patient isn't in the immobilizer for this. Patient admits to not drinking as much water as she probably should. Patient comes with labs from nursing facility with BUN of 79 and crit 1.82. Keppra level was greater than 100. On 01/01 BUN. Was 28 and creatinine was 1.33. Patient denies any rectal bleeding or black tarry stools. - Related Data Home Medications Medication Instructions Recorded Confirmed levETIRAcetam [Keppra] 1,000 mg PO Q12H 12/12/18 12/29/18 predniSONE 5 mg PO BID 12/12/18 12/29/18 Previous Rx's Medication Instructions Recorded Acetaminophen Tab [Tylenol] 650 mg PO Q6HR PRN tab 01/01/19 Lisinopril-Hctz 10-12.5 mg 1 each PO BID #0 tab 01/01/19 [Zestoretic 10-12.5] Temazepam [Restoril] 7.5 mg PO HS PRN #3 cap 01/01/19 Allergies Allergy/AdvReac Type Severity Reaction Status Date / Time gluten Allergy Unknown Verified 01/09/19 18:16 codeine AdvReac Nausea & Verified 01/09/19 18:16 Vomiting Review of Systems ROS Statement: Those systems with pertinent positive or pertinent negative responses have been documented in the HPI. ROS Other: All systems not noted in ROS Statement are negative. Constitutional: Denies: fever Eyes: Denies: eye pain ENT: Denies: ear pain Respiratory: Denies: cough Cardiovascular: Denies: chest pain Endocrine: Denies: fatigue Gastrointestinal: Denies: abdominal pain Genitourinary: Denies: urgency Musculoskeletal: Denies: back pain Skin: Denies: rash Neurological: Denies: weakness Past Medical History Past Medical History: Cancer, COPD, CVA/TIA, GERD/Reflux, Musculoskeletal Disorder, Neurologic Disorder, Pneumonia, Rheumatoid Arthritis (RA), Skin Disorder Additional Past Medical History / Comment(s): 2016 FALL/LT HIP FX(sx). 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 KIDNEY DX, PAD,"difficulty swallowing", uti-ecoli 2016, over active bladder wears a brief. History of Any Multi-Drug Resistant Organisms: None Reported Past Surgical History: Appendectomy, Hysterectomy Additional Past Surgical History / Comment(s): brain aneursym with surgery and angioplasty, aaa repair also, jani cataract, skin ca removed, lt breast bx and cyst removed, d&c, colonoscopy, orif lt hip, ORIF RT HIP, EGD Past Anesthesia/Blood Transfusion Reactions: No Reported Reaction Past Psychological History: No Psychological Hx Reported Smoking Status: Never smoker Past Alcohol Use History: None Reported Past Drug Use History: None Reported - Past Family History Mother Additional Family Medical History / Comment(s): BOWEL PROBLEMS/DIVERTICULAR DIEASE. LIVED TO BE 96 YEARS OLD Father History Unknown: Yes Additional Family Medical History / Comment(s): IN HIS SLEEEP AT AGE 86 Sister(s) Family Medical History: Cancer Additional Family Medical History / Comment(s): COLON Brother(s) Family Medical History: Cancer Additional Family Medical History / Comment(s): THROAT CANCER General Exam Limitations: no limitations General appearance: alert, in no apparent distress Head exam: Present: atraumatic Eye exam: Present: normal appearance, PERRL ENT exam: Present: mucous membranes dry Neck exam: Present: normal inspection. Absent: tenderness Respiratory exam: Present: normal lung sounds bilaterally Cardiovascular Exam: Present: regular rate, normal rhythm GI/Abdominal exam: Present: soft. Absent: tenderness Extremities exam: Present: other (Right leg knee immobilizer. Distally sensation and strength is intact. Dorsalis pedis pulse intact.) Neurological exam: Present: alert. Absent: motor sensory deficit Psychiatric exam: Present: normal affect, normal mood Skin exam: Present: abrasion (Left leg) Course Vital Signs 01/09/19 18:11 Temperature 97.5 F L Pulse Rate 88 Respiratory 18 Rate Blood Pressure 139/69 O2 Sat by Pulse 95 Oximetry Medical Decision Making - Medical Decision Making Patient is updated. Case was discussed in detail with Dr. Wilson, who will admit covering for Dr. Johnson. He does request neuro consult and repeat Keppra level in the morning, hold Keppra tonight. Disposition Clinical Impression: Acute renal failure (ARF) Disposition: ADMITTED IP TO THIS HOSP Is patient prescribed a controlled substance at d/c from ED?: No Referrals: Justyn Johnson DO [Primary Care Provider] - 1-2 days Decision Time: 18:28
[2019-01-09] MEDS ORDERED: NALOXONE 0.4 MG/ML 1 ML VIAL IV PRN (18:28)
[2019-01-09] MEDS ORDERED: SODIUM CHLORIDE 0.9% 500 ML 500 ML IV STA (18:39)
[2019-01-09 18:50] LABS: Basophils % (A) 0 %; Eosinophils % (A) 1 %; Lymphocytes # (A) 1.7 k/uL (1.0-4.8); Lymphocytes % (A) 23 %; MCH 29.3 pg (25.0-35.0); MCHC 31.8 g/dL (31.0-37.0); Mean Platelet Volume 6.8; Monocytes # (A) 0.4 k/uL (0-1.0); Monocytes % (A) 5 %; Neutrophils # (A) 5.1 k/uL (1.3-7.7); Neutrophils % (A) 69 %; Platelet Count 335 k/uL (150-450); RBC 4.44 m/uL (3.80-5.40); RDW 14.4 % (11.5-15.5); WBC 7.4 k/uL (3.8-10.6)
[2019-01-09 18:51] LABS: MCV 92.2 fL (80.0-100.0)
[2019-01-09 18:56] LABS: Albumin 4.2 g/dL (3.5-5.0); Calcium 9.9 mg/dL (8.4-10.2); Potassium 4.9 mmol/L (3.5-5.1); Total Bilirubin 0.3 mg/dL (0.2-1.3); Total Protein 8.4 g/dL (6.3-8.2)
[2019-01-09 19:19] LABS: Appearance,Urine Clear (Clear); Bilirubin,Urine Negative (Negative); Blood,Urine Negative (Negative); Color,Urine Colorless; Glucose,Urine (UA) Negative (Negative); Ketones,Urine Negative (Negative); Leukocyte Esterase,Urine Negative (Negative); Nitrite,Urine Negative (Negative); Protein,Urine Negative (Negative); Specific Gravity,Urine 1.006 (1.001-1.035); Urobilinogen,Urine <2.0 mg/dL (<2.0)
[2019-01-09 20:15] VITALS: RESP 16
[2019-01-09] MEDS ORDERED: ACETAMINOPHEN TAB 325 MG TAB PO PRN (21:55)
[2019-01-09] MEDS: TEMAZEPAM 7.5 MG CAP PO PRN (22:04)
[2019-01-09] MEDS: LISINOPRIL-HCTZ 10-12.5 MG 1 EACH TAB PO SCH (22:04)
[2019-01-10] MEDS: SODIUM CHLORIDE 0.9% 1,000 ML IV SCH ×2 (03:46→08:41)
[2019-01-10 08:32] LABS: Calcium 9.2 mg/dL (8.4-10.2); Potassium 4.5 mmol/L (3.5-5.1)
[2019-01-10] MEDS: LISINOPRIL-HCTZ 10-12.5 MG 1 EACH TAB PO SCH (08:40)
[2019-01-10] MEDS: POLYETHYLENE GLYCOL 3350 17 GM POWD.PACK PO SCH (08:41)
[2019-01-10] MEDS ORDERED: predniSONE 5 MG TAB PO SCH (09:00)
[2019-01-10] MEDS ORDERED: LACTOSE REDUCED FOOD PO SCH (09:00)
[2019-01-10 10:08] VITALS: BMI 17.5
[2019-01-10 11:10] LABS: Glucose,Whole Blood 131 mg/dL (75-99)
--- NOTE | 2019-01-10 18:37 | P.HPIM ---
History of Present Illness H&P Date: 01/10/19 Chief Complaint: Worsening renal function History of presenting complaint: This is a 83-year-old patient of Dr. Johnson. Chronic stable medical conditions include COPD, GERD, rheumatoid arthritis, celiac disease, chronic urinary incontinence, lumbar radiculopathy , diverticulosis. Patient does use a walker. Patient was in the hospital from December 30 through January 01. Patient had a nondisplaced medial tibial plateau fracture of the right knee, with associated hemarthrosis. Seen by Dr. Sharp. It was managed conservatively. Patient is discharged to the [facility] with a brace.. Patient BUN/creatinine was 28/1.33 on December 02. Patient was sent in with elevated BUN/creatinine being 81/1.78. Patient does feel a bit tired lethargic. does remark that patient was taking a smaller dose of Keppra than prescribed. But when was admitted was put back on the prior dose. Patient is given IV fluids in the ER. To. She feels a bit better. Patient's Keppra level also elevated. I don't see record of that. 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 . Does use a wheelchair/walker to get about activity. Family history: Throat cancer Physical examination: VITAL SIGNS: 97.5, 88, 18, 139/69, 95% room air GENERAL: BMI 17.9, laying in bed EYES: Pupils equal. Conjunctiva normal. HEENT: External appearance of nose and ears normal, oral cavity grossly normal. NECK: JVD not raised; masses not palpable. HEART: First and second heart sounds are normal; no edema. LUNGS: Respiratory rate normal; clear to auscultation. ABDOMEN: Soft, nontender, liver spleen not palpable, no masses palpable. PSYCH: Alert and oriented x3; mood and affect normal. NEUROLOGICAL: Cranial nerves grossly intact; no facial asymmetry, power and sensation grossly intact. LYMPHATICS: No lymph nodes palpable in the axilla and neck MUSCULOSKELETAL: Evidence of arthritis especially in the hands, brace on the rig ht leg Investigations: White count 7.4 hemoglobin 13 bun 81 creatinine 1.78 Labs on December 02 equal bun 28 creatinine 1.33 Assessment: -Acute renal failure prerenal, probably from decreased oral intake -Lethargic possibly from a relative increased dose of Keppra. -Right medial tibial plateau fracture with associated hemarthrosis -COPD -GERD -Rheumatoid arthritis -Chronic celiac disease -Lumbar radiculopathy -Overactive bladder causing incontinence uses a brief -Chronic diverticulosis Plan: Patient is put on a IV fluids. We'll also decrease the dose of Keppra to 750 mg twice a day. Had a lengthy discussed with the patient has been. They're not sure what to be getting the steroids 4. Apparently it had been given for appetite in the past. We'll decrease the prednisone to 7.5 mg once a day. Watch for another 24 hours. Repeat labs in the morning. Patient should be able to return to the [facility] tomorrow. Past Medical History Past Medical History: Cancer, COPD, CVA/TIA, GERD/Reflux, Musculoskeletal Disorder, Neurologic Disorder, Pneumonia, Rheumatoid Arthritis (RA), Skin Disorder Additional Past Medical History / Comment(s): 2016 FALL/LT HIP FX(sx). 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 KIDNEY DX, PAD,"difficulty swallowing", uti-ecoli 2016, over active bladder wears a brief. History of Any Multi-Drug Resistant Organisms: None Reported Past Surgical History: Appendectomy, Hysterectomy Additional Past Surgical History / Comment(s): brain aneursym with surgery and angioplasty, aaa repair also, jani cataract, skin ca removed, lt breast bx and cyst removed, d&c, colonoscopy, orif lt hip, ORIF RT HIP, EGD Past Anesthesia/Blood Transfusion Reactions: No Reported Reaction Past Psychological History: No Psychological Hx Reported Smoking Status: Never smoker Past Alcohol Use History: None Reported Past Drug Use History: None Reported - Past Family History Mother Additional Family Medical History / Comment(s): BOWEL PROBLEMS/DIVERTICULAR DIEASE. LIVED TO BE 96 YEARS OLD Father History Unknown: Yes Additional Family Medical History / Comment(s): IN HIS SLEEEP AT AGE 86 Sister(s) Family Medical History: Cancer Additional Family Medical History / Comment(s): COLON Brother(s) Family Medical History: Cancer Additional Family Medical History / Comment(s): THROAT CANCER Medications and Allergies Home Medications Medication Instructions Recorded Confirmed Type levETIRAcetam [Keppra] 1,000 mg PO BID@0900,209912/12/18 01/09/19 History predniSONE 5 mg PO BID@0900,209912/12/18 01/09/19 History Acetaminophen Tab [Tylenol] 650 mg PO Q6HR PRN 01/09/19 01/09/19 History Docusate [Colace] 100 mg PO HS@209901/09/19 01/09/19 History Lactose-Reduced Food [Ensure Plus] 240 ml PO BID@0900,1700 01/09/19 01/09/19 History Lisinopril-Hctz 10-12.5 mg 1 tab PO BID@0900,209901/09/19 01/09/19 History [Zestoretic 10-12.5] Polyethylene Glycol 3350 [Miralax] 17 gm PO DAILY@0900 01/09/19 01/09/19 History Temazepam [Restoril] 7.5 mg PO HS PRN 01/09/19 01/09/19 History Allergies Allergy/AdvReac Type Severity Reaction Status Date / Time gluten Allergy Unknown Verified 01/09/19 19:05 codeine AdvReac Nausea & Verified 01/09/19 19:05 Vomiting Physical Exam Vitals: Vital Signs Temp Pulse Pulse Resp BP BP Pulse Ox 01/10/19 05:32 97.4 F L 75 16 126/60 96 01/09/19 22:30 97.6 F 80 16 134/62 94 L 01/09/19 20:39 97.4 F L 01/09/19 20:14 80 16 118/78 99 01/09/19 18:11 97.5 F L 88 18 139/69 95 Intake and Output 10/09/19 10/10/19 10/10/19 22:59 06:59 14:59 Intake Total 800 Balance 800 Intake: Intake, IV Titration 800 Amount Sodium Chloride 0.9% 1, 800 000 ml @ 100 mls/hr IV . Q10H STA Rx#:[id number] Other: Voiding Method Bedpan # Voids 1 2 Weight 46.266 kg Results CBC & Chem 7: 01/09/19 18:38 01/10/19 06:19 Labs: Abnormal Lab Results - Last 24 Hours (Table) 01/09/19 01/10/19 Range/Units 18:38 06:19 Chloride 110 H (98-107) mmol/L BUN 81 H 65 H (7-17) mg/dL Creatinine 1.78 H 1.44 H (0.52-1.04) mg/dL Glucose 108 H (74-99) mg/dL Alkaline Phosphatase 131 H (38-126) U/L Total Protein 8.4 H (6.3-8.2) g/dL Thrombosis Risk Factor Assmnt - Choose All That Apply Any of the Below Risk Factors Present?: Yes Each Factor Represents 1 point: Abnormal pulmonary function (COPD) Each Risk Factor Represents 2 Points: Arthroscopic surgery Each Risk Factor Represents 3 Points: Age 75 years or older Thrombosis Risk Factor Assessment Total Risk Factor Score: 6 Thrombosis Risk Factor Assessment Level: High Risk
[2019-01-10] MEDS: TEMAZEPAM 7.5 MG CAP PO PRN (20:44)
[2019-01-10] MEDS ORDERED: amLODIPine 2.5 MG TAB PO SCH (21:00)
[2019-01-10] MEDS ORDERED: levETIRAcetam 250 MG TAB PO SCH (21:00)
[2019-01-10] MEDS ORDERED: DOCUSATE 100 MG CAP PO SCH (21:00)
--- NOTE | 2019-01-10 21:04 | P.CNNES ---
History of Present Illness Consult date: 01/10/19 Reason for Consult: Keppra toxicity Chief complaint: Renal failure and elevated Keppra level History of Present Illness: HISTORY OF PRESENT ILLNESS: Thank you for allowing me to evaluate Mrs. Brenda Miller. Ms. 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 patient states that she was sitting in a chair, and was trying to hand picker something that was next to the chair by leaning over, and she fell. She was sent to the ER, and then transferred to a rehab facility. Yesterday, patient was told by the doctor at rehab facility that some of her labs were not looking good, and recommended patient to be transferred to the emergency room. From ED note, patient was elevated creatinine and also Keppra level greater than 100. Patient denies any headache, nausea, vomiting, dizziness, double/blurry vision, weakness, numbness/tingling, abdominal pain, CP, SOB, diarrhea or constipation. It's unclear how much of Keppra she's actually taking. Patient states that in 1979, she had a brain aneurysm for which she got a craniotomy and got the aneurysm repair. She may have one episode seizure at the time, but she has not had any seizure episodes since then. Patient initially had stopped taking it because she didn't feel that she didn't need to take it. She started taking it again because people around her kept telling her that she should take it. Patient says she takes "half pill of Keppra," only at night time, but at this time, not sure what dose she's taking specifically. PAST MEDICAL HISTORY: COPD, cerebral aneurysm, AAA, seizures after brain surgery, squamous cell skin cancer, rheumatoid arthritis, renal disease, PAD PAST SURGICAL HISTORY: Appendectomy, hysterectomy, brain aneurysm repair and angioplasty, AAA repair, bilateral cataract, skin cancer removal, D&C, ORIF left hip and right hip HOME MEDICATIONS: Prednisone, Keppra, Colace, lisinopril-hydrochlorothiazide, temazepam prn ALLERGIES: Gluten, codeine SOCIAL HISTORY: Never smoker. FAMILY HISTORY: Mother with diverticular disease. Father in his sleep at aged 86. Sr. with colon cancer. Brother with throat cancer REVIEW OF SYSTEMS: The 14 systems are reviewed and no additional points are identified compared to the review of systems documented history and physical PHYSICAL EXAMINATION: VITAL SIGNS: T 97.4 HR 75 RR 16 BP 126/60 O2 SAT 96% on RA GEN.: NAD, pleasant and cooperative HEENT: NCAT, sclera without icterus NECK: Supple SKIN AND EXTREMITIES: Warm to touch, no edema NEURO: MENTAL STATUS: Patient alert and oriented to self, place, time. Able to name the current president. Speech fluent, able to name and repeat, following all commands readily. No right and left disorientation, extinction to double si multaneous stimulation, finger agnosia, neglect. CRANIAL NERVES II THROUGH XII: II: Pupils are equal and reactive to light symmetrically. No afferent pupillary defect. Visual milan are intact. III, IV, : No ptosis. Extraocular movements full. No nystagmus. V: Facial sensation intact from V1-3. VII. No clear facial asymmetry. VIII: Hearing intact to finger rub bilaterally. IX, X: Symmetric palate elevation. XI: Shoulder shrug intact. XII: Tongue midline without fasciculation or atrophy. MOTOR: Normal bulk/tone. No pronator drift or tremor. Strength is 5/5 throughout all 4 extremities. SENSORY: Intact to light touch, temperature, pinprick in all 4 extremities. Romberg is negative. REFLEXES: 2+ throughout. Toes are downgoing. No clonus. Sunitha's is absent COORDINATION: Finger to nose and heel to bearden intact. No dysmetria. Rapid alternating movements with good speed and accuracy. GAIT: Narrow-based and stable. Able to toe/heel/tandem walk DIAGNOSTIC TESTING: LABORATORY: WBC 7.4 hemoglobin 13.0 platelet 235 sodium 140 potassium 4.5 chloride 110 bicarb 23 BUN 65 (down from 81) creatinine 1.44 (down from 1.78) AST 24 ALT 17 alk phos 131 urinalysis negative IMAGING: CT head without contrast 12/29/2018: No acute intracranial abnormality. Post surgical change. Atrophic change. Chronic white matter ischemic change. ASSESSMENT: Ms. 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 Patient is on Keppra for a one-time seizure episode that occurred after her brain surgery in 1979. There is no reason for the patient to be continued on any seizure medication, but will taper her down. If patient was taking half pill of 1000mg (which is the highest-dosed pill), she was on 500mg qday dosing. RECOMMENDATIONS: 1. Decrease to Keppra 250mg qhs 2. follow-up with a Neurologist to continue to decrease Keppra dosing. 3. Neurology will sign off. Please call with additional questions or concerns. Past Medical History Past Medical History: Cancer, COPD, CVA/TIA, GERD/Reflux, Musculoskeletal Disorder, Neurologic Disorder, Pneumonia, Rheumatoid Arthritis (RA), Skin Disorder Additional Past Medical History / Comment(s): 2016 FALL/LT HIP FX(sx). 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 KIDNEY DX, PAD,"difficulty swallowing", uti-ecoli 2016, over active bladder wears a brief. History of Any Multi-Drug Resistant Organisms: None Reported Past Surgical History: Appendectomy, Hysterectomy Additional Past Surgical History / Comment(s): brain aneursym with surgery and a ngioplasty, aaa repair also, jani cataract, skin ca removed, lt breast bx and cyst removed, d&c, colonoscopy, orif lt hip, ORIF RT HIP, EGD Past Anesthesia/Blood Transfusion Reactions: No Reported Reaction Past Psychological History: No Psychological Hx Reported Smoking Status: Never smoker Past Alcohol Use History: None Reported Past Drug Use History: None Reported - Past Family History Mother Additional Family Medical History / Comment(s): BOWEL PROBLEMS/DIVERTICULAR DIEASE. LIVED TO BE 96 YEARS OLD Father History Unknown: Yes Additional Family Medical History / Comment(s): IN HIS SLEEEP AT AGE 86 Sister(s) Family Medical History: Cancer Additional Family Medical History / Comment(s): COLON Brother(s) Family Medical History: Cancer Additional Family Medical History / Comment(s): THROAT CANCER Medications and Allergies Home Medications Medication Instructions Recorded Confirmed Type levETIRAcetam [Keppra] 1,000 mg PO BID@0900,209912/12/18 01/09/19 History predniSONE 5 mg PO BID@0900,209912/12/18 01/09/19 History Acetaminophen Tab [Tylenol] 650 mg PO Q6HR PRN 01/09/19 01/09/19 History Docusate [Colace] 100 mg PO HS@209901/09/19 01/09/19 History Lactose-Reduced Food [Ensure Plus] 240 ml PO BID@0900,1700 01/09/19 01/09/19 History Lisinopril-Hctz 10-12.5 mg 1 tab PO BID@0900,209901/09/19 01/09/19 History [Zestoretic 10-12.5] Polyethylene Glycol 3350 [Miralax] 17 gm PO DAILY@0900 01/09/19 01/09/19 History Temazepam [Restoril] 7.5 mg PO HS PRN 01/09/19 01/09/19 History Allergies Allergy/AdvReac Type Severity Reaction Status Date / Time gluten Allergy Unknown Verified 01/09/19 19:05 codeine AdvReac Nausea & Verified 01/09/19 19:05 Vomiting Physical Examination - Vital Signs Vital Signs: Vital Signs Temp Pulse Pulse Resp BP BP Pulse Ox 01/10/19 05:32 97.4 F L 75 16 126/60 96 01/09/19 22:30 97.6 F 80 16 134/62 94 L 01/09/19 20:39 97.4 F L 01/09/19 20:14 80 16 118/78 99 01/09/19 18:11 97.5 F L 88 18 139/69 95 Intake and Output 01/09/19 01/10/19 01/10/19 22:59 06:59 14:59 Intake Total 800 Balance 800 Intake: Intake, IV Titration 800 Amount Sodium Chloride 0.9% 1, 800 000 ml @ 100 mls/hr IV . Q10H STA Rx#:[id number] Other: Voiding Method Bedpan # Voids 1 2 Weight 46.266 kg Results - Laboratory Findings CBC and BMP: 01/09/19 18:38 01/10/19 06:19 Abnormal Lab Findings: Abnormal Labs 01/09/19 01/10/19 18:38 06:19 Chloride 110 H BUN 81 H 65 H Creatinine 1.78 H 1.44 H Glucose 108 H Alkaline Phosphatase 131 H Total Protein 8.4 H
[2019-01-10 21:39] VITALS: TEMP 97.9
[2019-01-11 05:16] VITALS: BP 122/75; PULSE 82
[2019-01-11] MEDS: POLYETHYLENE GLYCOL 3350 17 GM POWD.PACK PO SCH (08:34)
[2019-01-11 08:56] LABS: Calcium 9.7 mg/dL (8.4-10.2); Potassium 4.5 mmol/L (3.5-5.1)
[2019-01-11] MEDS ORDERED: levETIRAcetam 250 MG TAB PO SCH (09:00)
[2019-01-11] MEDS ORDERED: predniSONE 2.5 MG TAB PO SCH (09:00)
--- NOTE | 2019-01-11 12:40 | P.DS ---
Providers Date of admission: 01/09/19 18:29 Expected date of discharge: 01/11/19 Attending physician: Dileep Wilson Consults: 01/09/19 18:29 Consult Physician Urgent Consulting Provider: Alia Johnson Consult Reason/Comments: keppra toxicity Do you want consulting provider notified?: Yes Primary care physician: [facility] Course: Hospital course: This is a 83-year-old patient of Dr. Johnson. Chronic stable medical conditions include COPD, GERD, rheumatoid arthritis, celiac disease, chronic urinary incontinence, lumbar radiculopathy , diverticulosis. Patient does use a walker. Patient was in the hospital from December 30 through January 01. Patient had a nondisplaced medial tibial plateau fracture of the right knee, with associated hemarthrosis. Seen by Dr. Sharp. It was managed conservatively. Patient is discharged to the [facility] with a brace.. Patient BUN/creatinine was 28/1.33 on December 02. Patient was sent in with elevated BUN/creatinine being 81/1.78. Patient does feel a bit tired lethargic. does remark that patient was taking a smaller dose of Keppra than prescribed. But when was admitted was put back on the prior dose. Patient is given IV fluids in the ER. To. She feels a bit better. Patient's Keppra level also elevated. I don't see record of that. Patient was seen by from neurology. Does of Keppra was reduced to to 50 mg daily at bedtime. Patient also been taking prednisone for a long time for appetite. Does has been decreased to 7.5 mg daily. This can be gradually tapered off over a period of days. Possibly decreased by 2.5 mg every week. Patient also found to be in acute renal failure responded well to fluids. Patient's antihypertensive medications were changed.. Creatinine did drop from 1.70 down to 1.22. Care was discussed with the patient. Questions were answered. Consultation: Dr. johnson from neurology Physical examination: VITAL SIGNS: 97.9, 82, 16, 122/75, 93% room air GENERAL: Laying in bed comfortable EYES: Pupils equal. Conjunctiva normal. HEENT: External appearance of nose and ears normal, oral cavity grossly normal. NECK: JVD not raised; masses not palpable. HEART: First and second heart sounds are normal; no edema. LUNGS: Respiratory rate normal; clear to auscultation. ABDOMEN: Soft, nontender, liver spleen not palpable, no masses palpable. PSYCH: Alert and oriented x3; mood and affect normal. MUSCULOSKELETAL: Evidence of arthritis especially in the hands, brace on the right leg Investigations: Potassium 4.5 bun 40 creatinine 1.22 Admission testing: White count 7.4 hemoglobin 13 bun 81 creatinine 1.78 Labs on December 02 equal bun 28 creatinine 1.33 Discharge diagnosis: -Acute renal failure prerenal, probably from decreased oral intake and being on diuretics. Resolved -Lethargic possibly from a relative increased dose of Keppra. -Right medial tibial plateau fracture with associated hemarthrosis, chronically on a brace -COPD -GERD -Rheumatoid arthritis -Chronic celiac disease -Lumbar radiculopathy -Overactive bladder causing incontinence uses a brief -Chronic diverticulosis Disposition: ECF/[facility] Patient Condition at Discharge: Stable Plan - Discharge Summary Discharge Rx Participant: No New Discharge Prescriptions: New levETIRAcetam [Keppra] 250 mg PO DAILY tab amLODIPine [Norvasc] 2.5 mg PO HS tab predniSONE 7.5 mg PO DAILY tab Sennosides-Docusate Sodium [Senokot-S] 1 tab PO DAILY #30 tablet Continue Lactose-Reduced Food [Ensure Plus] 240 ml PO BID@0900,1700 Polyethylene Glycol 3350 [Miralax] 17 gm PO DAILY@0900 Acetaminophen Tab [Tylenol] 650 mg PO Q6HR PRN PRN Reason: Pain Temazepam [Restoril] 7.5 mg PO HS PRN #3 cap PRN Reason: Insomnia Discontinued predniSONE 5 mg PO BID@0900,2100 levETIRAcetam [Keppra] 1,000 mg PO BID@0900,2100 Docusate [Colace] 100 mg PO HS@2099 Lisinopril-Hctz 10-12.5 mg [Zestoretic 10-12.5] 1 tab PO BID@0900,2100 Discharge Medication List Acetaminophen Tab [Tylenol] 650 mg PO Q6HR PRN 01/09/19 [History] Lactose-Reduced Food [Ensure Plus] 240 ml PO BID@0900,1700 01/09/19 [History] Polyethylene Glycol 3350 [Miralax] 17 gm PO DAILY@0900 01/09/19 [History] Sennosides-Docusate Sodium [Senokot-S] 1 tab PO DAILY #30 tablet 01/11/19 [Rx] Temazepam [Restoril] 7.5 mg PO HS PRN #3 cap 01/11/19 [Rx] amLODIPine [Norvasc] 2.5 mg PO HS tab 01/11/19 [Rx] levETIRAcetam [Keppra] 250 mg PO DAILY tab 01/11/19 [Rx] predniSONE 7.5 mg PO DAILY tab 01/11/19 [Rx] Follow up Appointment(s)/Referral(s): Justyn Johnson DO [Primary Care Provider] - 1-2 days
== END 2019-01-11 14:05 ==
LOC: EC 17:59 → 3NMEDONC 18:29
PROVIDERS: ADMIT Hospitalist; ATTEND Hospitalist
DX: N17.9 Acute kidney failure, unspecified (principal); R89.2 Abnormal level of other drugs, medicaments and biological substances in specimens from other organs, systems and tissues; T42.6X5A Adverse effect of other antiepileptic and sedative-hypnotic drugs, initial encounter; R53.83 Other fatigue; S82.141A Displaced bicondylar fracture of right tibia, initial encounter for closed fracture; M25.061 Hemarthrosis, right knee; J44.9 Chronic obstructive pulmonary disease, unspecified; I12.9 Hypertensive chronic kidney disease with stage 1 through stage 4 chronic kidney disease, or unspecified chronic kidney disease; N18.9 Chronic kidney disease, unspecified; M06.9 Rheumatoid arthritis, unspecified; K21.9 Gastro-esophageal reflux disease without esophagitis; N32.81 Overactive bladder; K57.90 Diverticulosis of intestine, part unspecified, without perforation or abscess without bleeding; M54.16 Radiculopathy, lumbar region; S80.812A Abrasion, left lower leg, initial encounter; I73.9 Peripheral vascular disease, unspecified; G40.89 Other seizures; R32 Unspecified urinary incontinence; K90.0 Celiac disease; M19.042 Primary osteoarthritis, left hand; M19.041 Primary osteoarthritis, right hand; Z79.52 Long term (current) use of systemic steroids; Z79.899 Other long term (current) drug therapy; Z91.02 Food additives allergy status; Z88.5 Allergy status to narcotic agent; Z86.79 Personal history of other diseases of the circulatory system; Z86.73 Personal history of transient ischemic attack (TIA), and cerebral infarction without residual deficits; Z85.828 Personal history of other malignant neoplasm of skin; Z87.440 Personal history of urinary (tract) infections; Z90.710 Acquired absence of both cervix and uterus; Z87.81 Personal history of (healed) traumatic fracture; Z98.62 Peripheral vascular angioplasty status; Z87.891 Personal history of nicotine dependence; Z98.42 Cataract extraction status, left eye; Z98.41 Cataract extraction status, right eye; Z80.0 Family history of malignant neoplasm of digestive organs; Z83.79 Family history of other diseases of the digestive system
CPT/HCPCS: 96361 ×3; 96360; 99284; 36415; 97162; 97166; 80053; 80048 ×2; 80177; 85025; 81003; G0378 ×3; J7512 ×2

== ENCOUNTER 2019-08-12 15:50 | Emergency (ER) | payer MEDICARE ==
[2019-08-12 15:56] VITALS: RESP 18
[2019-08-12 16:11] LABS: Glucose,Whole Blood 100 mg/dL (75-99)
[2019-08-12 16:23] LABS: Basophils % (A) 0 %; Eosinophils # (A) 0.2 k/uL (0-0.7); Eosinophils % (A) 3 %; HGB 14.4 gm/dL (11.4-16.0); Lymphocytes # (A) 2.2 k/uL (1.0-4.8); Lymphocytes % (A) 41 %; MCH 29.9 pg (25.0-35.0); MCHC 32.7 g/dL (31.0-37.0); MCV 91.4 fL (80.0-100.0); Mean Platelet Volume 6.9; Monocytes # (A) 0.4 k/uL (0-1.0); Monocytes % (A) 8 %; Neutrophils # (A) 2.4 k/uL (1.3-7.7); Neutrophils % (A) 45 %; Platelet Count 316 k/uL (150-450); RBC 4.82 m/uL (3.80-5.40); RDW 13.9 % (11.5-15.5); WBC 5.3 k/uL (3.8-10.6)
--- NOTE | 2019-08-12 16:24 | ED ---
Neuro HPI - General Chief Complaint: Neuro Symptoms/Deficit Stated Complaint: possible stroke Time Seen by Provider: 08/12/19 16:00 Source: patient, RN notes reviewed Mode of arrival: wheelchair Limitations: no limitations - History of Present Illness Is the patient presenting with stroke symptoms?: No Initial Comments: This 82-year-old female with a prior history of TIA who states she had the onset prior to arrival of a 5 minute episode of slurred speech no headache blurry vision nausea vomiting no chest pain palpitations. She does states she had a previous episode about a year ago for TIA. Similar to this presentation. He did just recently get out of rehab for a right knee fracture. Other complaints or modifying factors she does admit she has been drinking much fluid recently. - Related Data Home Medications: Home Medications Medication Instructions Recorded Confirmed Aspirin EC [Ecotrin Low Dose] 81 mg PO HS 08/12/19 08/12/19 Cholecalciferol [Vitamin D3 (25 2,000 unit PO DAILY 08/12/19 08/12/19 Mcg = 1000 Iu)] Doxylamine Succinate [Unisom] 25 mg PO HS 08/12/19 08/12/19 Multivitamins, Thera [Multivitamin 1 tab PO HS 08/12/19 08/12/19 (formulary)] Unknown Allergy Medication 1 tab PO DAILY 08/12/19 08/12/19 amLODIPine [Norvasc] 2.5 mg PO DAILY 08/12/19 08/12/19 Previous Rx's Medication Instructions Recorded levETIRAcetam [Keppra] 250 mg PO DAILY tab 01/11/19 Allergies/Adverse Reactions: Allergies Allergy/AdvReac Type Severity Reaction Status Date / Time gluten Allergy Unknown Verified 08/12/19 17:06 codeine AdvReac Nausea & Verified 08/12/19 17:06 Vomiting Review of Systems ROS Statement: Those systems with pertinent positive or pertinent negative responses have been documented in the HPI. ROS Other: All systems not noted in ROS Statement are negative. General Exam - General Exam Comments Initial Comments: Is a well-developed asthenic appearing female who is awake alert oriented 3 Limitations: no limitations General appearance: alert Head exam: Present: atraumatic, normocephalic, normal inspection Eye exam: Present: normal appearance, PERRL, EOMI. Absent: scleral icterus, conjunctival injection, periorbital swelling ENT exam: Present: mucous membranes dry Neck exam: Present: normal inspection, full ROM, other (No stridor JVD or bruits). Absent: tenderness, meningismus, lymphadenopathy Respiratory exam: Present: normal lung sounds bilaterally. Absent: respiratory distress, wheezes, rales, rhonchi, stridor Cardiovascular Exam: Present: regular rate, normal rhythm, normal heart sounds. Absent: systolic murmur, diastolic murmur, rubs, gallop, clicks GI/Abdominal exam: Present: soft, normal bowel sounds. Absent: distended, tenderness, guarding, rebound, rigid Extremities exam: Present: full ROM, normal capillary refill, other (Some stasis changes to both lower extremities a relatively recent bruise to the right lateral anterior leg.). Absent: tenderness, pedal edema, joint swelling, calf tenderness Back exam: Present: normal inspection Neurological exam: Present: alert, oriented X3, CN II-XII intact Psychiatric exam: Present: normal affect, normal mood Skin exam: Present: warm, dry, intact, normal color. Absent: rash Stroke MDM - Lab Data Result diagrams: 08/12/19 16:11 08/12/19 16:11 Lab Results 08/12/19 08/12/19 08/12/19 Range/Units 16:09 16:11 16:11 WBC 5.3 (3.8-10.6) k/uL RBC 4.82 (3.80-5.40) m/uL Hgb 14.4 (11.4-16.0) gm/dL Hct 44.0 (34.0-46.0) % MCV 91.4 (80.0-100.0) fL MCH 29.9 (25.0-35.0) pg MCHC 32.7 (31.0-37.0) g/dL RDW 13.9 (11.5-15.5) % Plt Count 316 (150-450) k/uL Neutrophils % 45 % Lymphocytes % 41 % Monocytes % 8 % Eosinophils % 3 % Basophils % 0 % Neutrophils # 2.4 (1.3-7.7) k/uL Lymphocytes # 2.2 (1.0-4.8) k/uL Monocytes # 0.4 (0-1.0) k/uL Eosinophils # 0.2 (0-0.7) k/uL Basophils # 0.0 (0-0.2) k/uL PT 9.5 (9.0-12.0) sec INR 0.9 (<1.2) APTT 22.5 (22.0-30.0) sec Sodium (137-145) mmol/L Potassium (3.5-5.1) mmol/L Chloride (98-107) mmol/L Carbon Dioxide (22-30) mmol/L Anion Gap mmol/L BUN (7-17) mg/dL Creatinine (0.52-1.04) mg/dL Est GFR (CKD-EPI)AfAm (>60 ml/min/1.73 sqM) Est GFR (CKD-EPI)NonAf (>60 ml/min/1.73 sqM) Glucose (74-99) mg/dL POC Glucose (mg/dL) 100 H (75-99) mg/dL POC Glu Needle Punch Machine Operator Helper Samaria Sims Calcium (8.4-10.2) mg/dL Total Bilirubin (0.2-1.3) mg/dL AST (14-36) U/L ALT (4-34) U/L Alkaline Phosphatase (38-126) U/L Creatine Kinase (30-135) U/L Troponin I (0.000-0.034) ng/mL Total Protein (6.3-8.2) g/dL Albumin (3.5-5.0) g/dL 08/12/19 08/12/19 Range/Units 16:11 16:11 WBC (3.8-10.6) k/uL RBC (3.80-5.40) m/uL Hgb (11.4-16.0) gm/dL Hct (34.0-46.0) % MCV (80.0-100.0) fL MCH (25.0-35.0) pg MCHC (31.0-37.0) g/dL RDW (11.5-15.5) % Plt Count (150-450) k/uL Neutrophils % % Lymphocytes % % Monocytes % % Eosinophils % % Basophils % % Neutrophils # (1.3-7.7) k/uL Lymphocytes # (1.0-4.8) k/uL Monocytes # (0-1.0) k/uL Eosinophils # (0-0.7) k/uL Basophils # (0-0.2) k/uL PT (9.0-12.0) sec INR (<1.2) APTT (22.0-30.0) sec Sodium 139 (137-145) mmol/L Potassium 4.6 (3.5-5.1) mmol/L Chloride 105 (98-107) mmol/L Carbon Dioxide 26 (22-30) mmol/L Anion Gap 8 mmol/L BUN 28 H (7-17) mg/dL Creatinine 1.58 H (0.52-1.04) mg/dL Est GFR (CKD-EPI)AfAm 35 (>60 ml/min/1.73 sqM) Est GFR (CKD-EPI)NonAf 30 (>60 ml/min/1.73 sqM) Glucose 107 H (74-99) mg/dL POC Glucose (mg/dL) (75-99) mg/dL POC Glu Needle Punch Machine Operator Helper ID Calcium 9.8 (8.4-10.2) mg/dL Total Bilirubin 0.3 (0.2-1.3) mg/dL AST 41 H (14-36) U/L ALT 19 (4-34) U/L Alkaline Phosphatase 92 (38-126) U/L Creatine Kinase 249 H (30-135) U/L Troponin I <0.012 (0.000-0.034) ng/mL Total Protein 8.6 H (6.3-8.2) g/dL Albumin 4.3 (3.5-5.0) g/dL - NIH Stroke Scale 1a. Level of Consciousness: (0) alert 1b. LOC Questions: (0) answers correctly 1c. LOC Commands: (0) performs tasks correctly 2. Best Gaze: (0) normal 3. Visual: (0) no visual loss 4. Facial Palsy: (0) normal symmetrical movement 5a. Motor Arm Left: (0) no drift 5b. Motor Arm Right: (0) no drift 6a. Motor Leg Left: (0) no drift 6b. Motor Leg Right: (0) no drift 7. Limb Ataxia: (0) absent 8. Sensory: (0) normal 9. Best Language: (0) no aphasia 10. Dysarthria: (0) normal 11. Extinction/Inattention: (0) no abnormality - Medical Decision Making I did reevaluate the patient she has no further symptoms. Patient's presentation is consistent with a TIA in addition to renal insufficiency and dehydration I did recommend admission the patient is refusing to be admitted at this time. Her is present. Patient will follow-up with her doctor and also had a appointment in the past with Dr. Prado who she is encouraged to follow-up with otherwise he can return any time. Will be taken any aspirin daily. She is welcome back at any time. - Radiology Data Radiology results: report reviewed, image reviewed (I did review the imaging and report no acute findings.) - EKG Data -: EKG Interpreted by Me EKG shows normal: [place] [address] QRS 74 QT since QTC 382/446 low-voltage QRS nonspecific anterior configuration) Past Medical History Past Medical History: Cancer, COPD, CVA/TIA, GERD/Reflux, Musculoskeletal Disorder, Neurologic Disorder, Pneumonia, Rheumatoid Arthritis (RA), Skin Disorder Additional Past Medical History / Comment(s): 2016 FALL/LT HIP FX(sx). 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 KIDNEY DX, PAD,"difficulty swallowing", uti-ecoli 2016, over active bladder wears a brief. History of Any Multi-Drug Resistant Organisms: None Reported Past Surgical History: Appendectomy, Hysterectomy Additional Past Surgical History / Comment(s): brain aneursym with surgery and angioplasty, aaa repair also, jani cataract, skin ca removed, lt breast bx and cyst removed, d&c, colonoscopy, orif lt hip, ORIF RT HIP, EGD Past Anesthesia/Blood Transfusion Reactions: No Reported Reaction Past Psychological History: No Psychological Hx Reported Smoking Status: Never smoker Past Alcohol Use History: None Reported Past Drug Use History: None Reported - Past Family History Mother Additional Family Medical History / Comment(s): BOWEL PROBLEMS/DIVERTICULAR DIEASE. LIVED TO BE 96 YEARS OLD Father History Unknown: Yes Additional Family Medical History / Comment(s): IN HIS SLEEEP AT AGE 86 Sister(s) Family Medical History: Cancer Additional Family Medical History / Comment(s): COLON Brother(s) Family Medical History: Cancer Additional Family Medical History / Comment(s): THROAT CANCER Course Vital Signs 08/12/19 15:53 Temperature 97.8 F Pulse Rate 70 Respiratory 18 Rate Blood Pressure 147/86 O2 Sat by Pulse 99 Oximetry Disposition Clinical Impression: Transient cerebral ischemia Disposition: Left Against Medical Advice Condition: Stable Instructions (If sedation given, give patient instructions): Transient Ischemic Attack (ED) Is patient prescribed a controlled substance at d/c from ED?: No Referrals: Justyn Johnson DO [Primary Care Provider] - 1-2 days
[2019-08-12 16:31] LABS: INR 0.9 (<1.2); Partial Thromboplastin Time 22.5 sec (22.0-30.0); Prothrombin Time 9.5 sec (9.0-12.0)
[2019-08-12 16:35] LABS: Albumin 4.3 g/dL (3.5-5.0); Calcium 9.8 mg/dL (8.4-10.2); Potassium 4.6 mmol/L (3.5-5.1); Total Bilirubin 0.3 mg/dL (0.2-1.3); Total Protein 8.6 g/dL (6.3-8.2)
--- NOTE | 2019-08-12 16:55 | XR ---
EXAMINATION TYPE: XR chest 2V DATE OF EXAM: 08/12/2019 COMPARISON: Chest x-ray May 23, 2019. HISTORY: Altered mental status and weakness. TECHNIQUE: Frontal and lateral views of the chest are obtained. FINDINGS: Slightly diminished inspiration on current study. There is chronic parenchymal change witho ut suspicious new focal air space opacity, pleural effusion, or pneumothorax seen. The cardiac silho uette size remains within normal limits with atherosclerotic and ectatic aorta. The osseous structu res remain demineralized. IMPRESSION: Chronic changes without acute pulmonary process. No significant change from prior.
--- NOTE | 2019-08-12 16:58 | CT ---
EXAMINATION TYPE: CT brain wo con for TPA DATE OF EXAM: 08/12/2019 HISTORY: weakness, slurred speech CT DLP: 1087.4 mGycm. Automated Exposure Control for Dose Reduction was Utilized. TECHNIQUE: CT scan of the head is performed without contrast. COMPARISON: CT brain December 29, 2018 and older CTs. MRI brain December 02, 2014. FINDINGS: There is no acute intracranial hemorrhage or midline shift identified. There is diffuse v entricular and sulcal prominence consistent with diffuse age-related cerebral atrophy. There is low- attenuation in the periventricular white matter consistent with chronic small vessel ischemic change. 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 The globes are intact and the visualized si nuses are clear. IMPRESSION: No acute intracranial hemorrhage or midline shift. There is moderate diffuse cerebral a trophy and chronic small vessel ischemic change along with surgical change from right-sided aneurysm treatment all redemonstrated. No significant change from most recent CT.
[2019-08-12 17:33] VITALS: BP 126/81; PULSE 96; TEMP 98
== END 2019-08-12 17:34 | disposition left against medical advice (07) ==
LOC: EC 15:50
DX: G45.9 Transient cerebral ischemic attack, unspecified (principal); Z85.828 Personal history of other malignant neoplasm of skin; Z98.890 Other specified postprocedural states; Z98.62 Peripheral vascular angioplasty status; Z79.82 Long term (current) use of aspirin; Z79.899 Other long term (current) drug therapy; Z91.018 Allergy to other foods; Z88.5 Allergy status to narcotic agent
CPT/HCPCS: 36415; 70450; 71046; 80053; 82550; 84484; 85025; 85610; 85730; 93005; 99285

== ENCOUNTER → 2019-10-04 | Outpatient (CLI) | payer MEDICARE, OTHER ==
--- NOTE | 2019-10-04 10:56 | CT ---
EXAMINATION TYPE: CT abdomen pelvis w con DATE OF EXAM: 10/04/2019 COMPARISON: 10/09/2017 and 02/03/2017 HISTORY: 84-year-old female R10.32, left lower quadrant pain TECHNIQUE: Contiguous axial scanning of the abdomen and pelvis following administration of 50 ml Isov ue 300 IV contrast followed by a 50 ml saline flush. Delayed images through the kidneys and coronal/ sagittal reconstructions performed. CT DLP: 328.20 mGycm Automated exposure control for dose reduction was used. FINDINGS: Heart normal size without pericardial effusion. Peripheral right basilar pulmonary nodule m easures 5 mm, unchanged. A couple smaller pulmonary nodules peripheral left base, axial image 7 also appear to have been present in 2017. No pleural effusion. Prominent dependent atelectasis is noted. 3.3 cm aneurysm of the lower descending thoracic aorta has a similar caliber to 2018. Moderate athero sclerotic plaque and calcifications is present at the thoracoabdominal junction. At the level of the diaphragmatic hiatus, aorta measures 3.1 cm, unchanged. Abdominal aortic graft noted along the infrar enal region. 9 mm benign cyst anterior left liver lobe. Otherwise, no focal liver lesion seen. Portal venous syste m is patent. No biliary ductal dilatation. Gallbladder, right adrenal gland, spleen, and pancreas appear within normal limits. Unchanged diffuse thickening of the left adrenal gland without discrete nodularity. Kidneys show bilateral cortical thinning compatible with chronic medical renal disease. Couple tiny c ortical subcentimeter hypodensities too small for accurate CT characterization, likely tiny cortical cysts. Symmetric uptake and excretion of contrast from the kidneys. No dilated small bowel, free fluid, or free air. No mesenteric or retroperitoneal lymphadenopathy see n. Oral contrast progressed to the ileocecal valve region. Scattered moderate stool. Left-sided colonic diverticulosis, severe within the sigmoid colon. No definite pericolonic inflammatory change seen. Bladder under distended. Circumferential wall thickening. Uterus surgically absent. Right ovary is vi sualized. Left ovary not clearly seen. Multiple pelvic phleboliths. No abnormal fluid collection. Pel vis or pelvic lymphadenopathy seen. Bones: Percutaneous pinning across the left femoral neck. Moderate degenerative change right hip and [id number] left hip. Old healed fracture deformity left inferior pubic ramus. Hypertrophic face t arthropathy mid to lower lumbar spine with grade 1 anterolisthesis L4-L5. Severe degenerative disc disease lower lumbar spine. As compared to 10/09/2017, mild height loss of the L1 vertebral body is new but still remains age indet erminate. IMPRESSION: 1. 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 ABD OMINAL AORTIC GRAFT MATERIAL NOTED ALONG THE INFRARENAL REGION. 2. LEFT-SIDED COLONIC DIVERTICULOSIS, SEVERE IN THE SIGMOID COLON. NO FINDINGS OF ACUTE DIVERTICULITI S AT THIS TIME. 3. CIRCUMFERENTIAL BLADDER WALL THICKENING. CORRELATE TO EXCLUDE CYSTITIS. 4. MILD VERTEBRAL BODY HEIGHT LOSS OF L1, NEW COMPARED TO 10/09/2017. THIS REMAINS AGE INDETERMINATE , SUSPECT ARE CHRONIC GIVEN THE LACK OF SURROUNDING SWELLING. CORRELATE FOR ANY PAIN AT THIS LEVEL.
== END | disposition home or self-care (01) ==
LOC: RADCTMAIN 08:36
PROVIDERS: ATTEND Family Medicine
DX: K57.30 Diverticulosis of large intestine without perforation or abscess without bleeding (principal); N32.89 Other specified disorders of bladder; Z95.828 Presence of other vascular implants and grafts
CPT/HCPCS: 82565; 84520; 74177; 36415; Q9967

== ENCOUNTER → 2020-06-09 | Outpatient (CLI) | payer MEDICARE ==
--- NOTE | 2020-06-09 12:58 | US ---
EXAMINATION TYPE: US bladder DATE OF EXAM: 06/09/2020 COMPARISON: Ultrasound kidneys and bladder January 30, 2012. CT abdomen and pelvis October 04, 2019 CLINICAL HISTORY: N13.9 Obstructive and reflux uropathy, unspecified. Nocturia EXAM MEASUREMENTS: Post Void Residual Volume: 36.3 mL Color Doppler performed to assess ureteral jets. Bilateral Jets seen: no Normal Post Void Residual (less than 50ml): yes Urinary bladder satisfactorily distended on current study without suspicious intraluminal mass or abn ormal wall thickening seen on images saved. After voiding bladder is nearly completely emptied. IMPRESSION: As above.
== END ==
LOC: RADUSWWP 12:18
PROVIDERS: ATTEND Family Medicine
DX: N13.9 Obstructive and reflux uropathy, unspecified (principal); R35.1 Nocturia
CPT/HCPCS: 76857

== ENCOUNTER 2020-06-29 09:25 | Observation (INO) | payer MEDICARE ==
--- NOTE | 2020-06-29 10:28 | ED ---
General Adult HPI - General Chief complaint: Chest Pain Stated complaint: Left Side Pain Time Seen by Provider: 06/29/20 09:34 Source: patient, RN notes reviewed, old records reviewed Mode of arrival: wheelchair Limitations: physical limitation - History of Present Illness Initial comments: 84-year-old female presenting for left lateral chest pain that began early this morning. This was intermittent, sharp pain. Currently resolved. Patient denies trauma. She denies cough. Denies fever. She denies central radiating chest pain. No known history of coronary artery disease. Breath. No fever. She did have 2 episodes of diarrhea yesterday. - Related Data Home Medications Medication Instructions Recorded Confirmed amLODIPine [Norvasc] 2.5 mg PO DAILY 08/12/19 06/29/20 Omeprazole 20 mg PO AC-BID 06/29/20 06/29/20 Oxybutynin Chloride [Ditropan] 5 mg PO BID 06/29/20 06/29/20 levETIRAcetam [Keppra] 250 mg PO BID 06/29/20 06/29/20 Allergies Allergy/AdvReac Type Severity Reaction Status Date / Time gluten Allergy Unknown Verified 06/29/20 09:30 codeine AdvReac Nausea & Verified 06/29/20 09:30 Vomiting Review of Systems ROS Statement: Those systems with pertinent positive or pertinent negative responses have been documented in the HPI. ROS Other: All systems not noted in ROS Statement are negative. Past Medical History Past Medical History: Cancer, COPD, CVA/TIA, GERD/Reflux, Musculoskeletal Disorder, Neurologic Disorder, Pneumonia, Rheumatoid Arthritis (RA), Skin Disorder Additional Past Medical History / Comment(s): 2016 FALL/LT HIP FX(sx). 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 KIDNEY DX, PAD,"difficulty swallowing", uti-ecoli 2016, over active bladder wears a brief. History of Any Multi-Drug Resistant Organisms: None Reported Past Surgical History: Appendectomy, Hysterectomy Additional Past Surgical History / Comment(s): brain aneursym with surgery and angioplasty, aaa repair also, jani cataract, skin ca removed, lt breast bx and cyst removed, d&c, colonoscopy, orif lt hip, ORIF RT HIP, EGD Past Anesthesia/Blood Transfusion Reactions: No Reported Reaction Past Psychological History: No Psychological Hx Reported Past Alcohol Use History: None Reported Past Drug Use History: None Reported - Past Family History Mother Additional Family Medical History / Comment(s): BOWEL PROBLEMS/DIVERTICULAR DIEASE. LIVED TO BE 96 YEARS OLD Father History Unknown: Yes Additional Family Medical History / Comment(s): IN HIS SLEEEP AT AGE 86 Sister(s) Family Medical History: Cancer Additional Family Medical History / Comment(s): COLON Brother(s) Family Medical History: Cancer Additional Family Medical History / Comment(s): THROAT CANCER General Exam Limitations: physical limitation General appearance: alert, in no apparent distress Head exam: Present: atraumatic, normocephalic Eye exam: Present: normal appearance, PERRL ENT exam: Present: normal exam Neck exam: Present: normal inspection. Absent: tenderness, meningismus Respiratory exam: Present: normal lung sounds bilaterally. Absent: respiratory distress, wheezes, rales, rhonchi Cardiovascular Exam: Present: regular rate, normal rhythm GI/Abdominal exam: Present: soft. Absent: distended, tenderness, guarding Extremities exam: Present: normal inspection, normal capillary refill. Absent: pedal edema, calf tenderness Neurological exam: Present: alert, oriented X3, CN II-XII intact. Absent: motor sensory deficit Psychiatric exam: Present: normal affect, normal mood Course Vital Signs 06/29/20 06/29/20 06/29/20 09:27 10:48 12:25 Temperature 97.7 F Pulse Rate 82 67 74 Respiratory 18 18 18 Rate Blood Pressure 133/77 163/82 134/89 O2 Sat by Pulse 98 97 99 Oximetry EKG Findings - EKG Comments: EKG Findings:: EKG: Normal sinus rhythm, low voltage, rate of 63, OR interval 166, QRS duration 68, QTC 4:[address] segment elevation. Medical Decision Making - Medical Decision Making 84-year-old female who had presented for evaluation of left-sided chest pain. Pain was lasting several minutes, currently resolved. According to her she has complained of intermittent chest pain over the past several months. She has no known history of coronary artery disease. She has a history of chronic kidney disease. She denies cough or dyspnea. Denies fever. X-ray performed, negative for acute cardiac primary disease per chest normal CBC, CMP showing CK D with mild elevation above baseline and her creatinine. Negative initial troponin. Patient remains chest pain-free while the emergency department. She will be admitted for chest pain rule out. Case discussed with Dr. Hutchison who will admit. - Lab Data Result diagrams: 06/29/20 10:48 06/29/20 10:48 Lab Results 06/29/20 06/29/20 06/29/20 Range/Units 10:48 10:48 10:48 WBC 5.1 (3.8-10.6) k/uL RBC 3.92 (3.80-5.40) m/uL Hgb 11.9 (11.4-16.0) gm/dL Hct 34.9 (34.0-46.0) % MCV 88.9 (80.0-100.0) fL MCH 30.4 (25.0-35.0) pg MCHC 34.2 (31.0-37.0) g/dL RDW 13.2 (11.5-15.5) % Plt Count 192 (150-450) k/uL MPV 7.1 Neutrophils % 60 % Lymphocytes % 29 % Monocytes % 7 % Eosinophils % 3 % Basophils % 0 % Neutrophils # 3.1 (1.3-7.7) k/uL Lymphocytes # 1.5 (1.0-4.8) k/uL Monocytes # 0.4 (0-1.0) k/uL Eosinophils # 0.1 (0-0.7) k/uL Basophils # 0.0 (0-0.2) k/uL PT 10.1 (9.0-12.0) sec INR 0.9 (<1.2) APTT 22.3 (22.0-30.0) sec Sodium 136 L (137-145) mmol/L Potassium 4.2 (3.5-5.1) mmol/L Chloride 110 H (98-107) mmol/L Carbon Dioxide 17 L (22-30) mmol/L Anion Gap 9 mmol/L BUN 36 H (7-17) mg/dL Creatinine 2.30 H (0.52-1.04) mg/dL Est GFR (CKD-EPI)AfAm 22 (>60 ml/min/1.73 sqM) Est GFR (CKD-EPI)NonAf 19 (>60 ml/min/1.73 sqM) Glucose 102 H (74-99) mg/dL Calcium 9.3 (8.4-10.2) mg/dL Magnesium 2.1 (1.6-2.3) mg/dL Total Bilirubin 0.4 (0.2-1.3) mg/dL AST 31 (14-36) U/L ALT 12 (4-34) U/L Alkaline Phosphatase 79 (38-126) U/L Troponin I (0.000-0.034) ng/mL Total Protein 8.1 (6.3-8.2) g/dL Albumin 4.0 (3.5-5.0) g/dL 06/29/20 Range/Units 10:48 WBC (3.8-10.6) k/uL RBC (3.80-5.40) m/uL Hgb (11.4-16.0) gm/dL Hct (34.0-46.0) % MCV (80.0-100.0) fL MCH (25.0-35.0) pg MCHC (31.0-37.0) g/dL RDW (11.5-15.5) % Plt Count (150-450) k/uL MPV Neutrophils % % Lymphocytes % % Monocytes % % Eosinophils % % Basophils % % Neutrophils # (1.3-7.7) k/uL Lymphocytes # (1.0-4.8) k/uL Monocytes # (0-1.0) k/uL Eosinophils # (0-0.7) k/uL Basophils # (0-0.2) k/uL PT (9.0-12.0) sec INR (<1.2) APTT (22.0-30.0) sec Sodium (137-145) mmol/L Potassium (3.5-5.1) mmol/L Chloride (98-107) mmol/L Carbon Dioxide (22-30) mmol/L Anion Gap mmol/L BUN (7-17) mg/dL Creatinine (0.52-1.04) mg/dL Est GFR (CKD-EPI)AfAm (>60 ml/min/1.73 sqM) Est GFR (CKD-EPI)NonAf (>60 ml/min/1.73 sqM) Glucose (74-99) mg/dL Calcium (8.4-10.2) mg/dL Magnesium (1.6-2.3) mg/dL Total Bilirubin (0.2-1.3) mg/dL AST (14-36) U/L ALT (4-34) U/L Alkaline Phosphatase (38-126) U/L Troponin I <0.012 (0.000-0.034) ng/mL Total Protein (6.3-8.2) g/dL Albumin (3.5-5.0) g/dL Disposition Clinical Impression: Chest pain Disposition: ADMITTED IP TO THIS [facility] Condition: Stable Is patient prescribed a controlled substance at d/c from ED?: No Referrals: Justyn Johnson DO [Primary Care Provider] - 1-2 days Decision to Admit Reason: Admit from EC Decision Date: 06/22/20 Decision Time: 12:59
--- NOTE | 2020-06-29 10:49 | XR ---
EXAMINATION TYPE: XR chest 2V DATE OF EXAM: 06/29/2020 COMPARISON: Chest x-ray 08/12/2019 HISTORY: Rest pain TECHNIQUE: Frontal and lateral views of the chest are obtained. FINDINGS: There is no focal air space opacity, pleural effusion, or pneumothorax seen. The cardiac silhouette size is within normal limits. Aorta is dense and ectatic. There are overlying leads. The osseous structures are remarkable for thoracic compression deformities of indeterminate age. IMPRESSION: No acute cardiopulmonary process. Additional findings above.
[2020-06-29 11:13] LABS: Basophils % (A) 0 %; Eosinophils # (A) 0.1 k/uL (0-0.7); Eosinophils % (A) 3 %; HCT 34.9 % (34.0-46.0); HGB 11.9 gm/dL (11.4-16.0); Lymphocytes # (A) 1.5 k/uL (1.0-4.8); Lymphocytes % (A) 29 %; MCH 30.4 pg (25.0-35.0); MCHC 34.2 g/dL (31.0-37.0); MCV 88.9 fL (80.0-100.0); Mean Platelet Volume 7.1; Monocytes # (A) 0.4 k/uL (0-1.0); Monocytes % (A) 7 %; Neutrophils # (A) 3.1 k/uL (1.3-7.7); Neutrophils % (A) 60 %; Platelet Count 192 k/uL (150-450); RBC 3.92 m/uL (3.80-5.40); RDW 13.2 % (11.5-15.5); WBC 5.1 k/uL (3.8-10.6)
[2020-06-29 11:22] LABS: INR 0.9 (<1.2); Partial Thromboplastin Time 22.3 sec (22.0-30.0); Prothrombin Time 10.1 sec (9.0-12.0)
[2020-06-29 11:28] LABS: Calcium 9.3 mg/dL (8.4-10.2); Magnesium 2.1 mg/dL (1.6-2.3); Potassium 4.2 mmol/L (3.5-5.1); Total Bilirubin 0.4 mg/dL (0.2-1.3); Total Protein 8.1 g/dL (6.3-8.2)
[2020-06-29] MEDS ORDERED: NALOXONE 0.4 MG/ML 1 ML VIAL IV PRN (12:56)
[2020-06-29] MEDS ORDERED: ASPIRIN 325 MG TAB PO STA (12:57)
[2020-06-29 15:06] LABS: Appearance,Urine Clear (Clear); Bilirubin,Urine Negative (Negative); Blood,Urine Negative (Negative); Color,Urine Colorless; Glucose,Urine (UA) Negative (Negative); Ketones,Urine Negative (Negative); Leukocyte Esterase,Urine Trace (Negative); Nitrite,Urine Negative (Negative); Protein,Urine Negative (Negative); RBC,Urine 2 /hpf (0-5); Specific Gravity,Urine 1.006 (1.001-1.035); Squamous Epithelial Cell,Urine <1 /hpf (0-4); Urobilinogen,Urine <2.0 mg/dL (<2.0); WBC,Urine 1 /hpf (0-5)
[2020-06-29] MEDS: SODIUM CHLORIDE 0.9% 1,000 ML IV SCH ×2 (15:33→23:18)
[2020-06-29] MEDS ORDERED: HYDROcodone/APAP 5-325MG 1 EACH TAB PO STA (21:25)
--- NOTE | 2020-06-29 22:06 | P.HPIM ---
History of Present Illness This is a pleasant 84 years old female with multiple medical problems including CVA/TIA, GERD, rheumatoid arthritis, history of seizure, chronic kidney disease. Patient presents because of chest pain. Her chest pain started this morning at 7 AM. Threadlike 4/10 in severity butcompletely resolved and treated as 0/10, it lasts usually for 5-6 minutes mainly on the left side and not irritating associated with body aches and diarrhea about twice per day but today she does not have diarrhea but she has mild left lower quadrant abdominal pain and tenderness but no rebound tenderness. Usually have abdominal pain last for 1-2 hours tepid last night and then resolved but came back at 9.5/10 in severity, nonradiating. Vitals are stable. Labs are unremarkable including CBC INR and liver enzymes. BMP showing increased creatinine of 2.3, baseline creatinine is 1.5-1.8. Troponin are negative 2 with less than 0.012. EKG showing normal sinus rhythm at 63 BPM with no significant ST-T changes. Chest x-ray: Negative process. In the emergency room patient was started on aspirin and normal sinus with a power She has recent urinary bladder ultrasound on 06/10/2020 showing no intraluminal mass or abnormal wall thickening. After voiding bladder is nearly completely emptied Review of Systems CONSTITUTIONAL: No fever, no malaise, no fatigue. HEENT: No recent visual problems or hearing problems. Denied any sore throat. CARDIOVASCULAR: No orthopnea, PND, no palpitations, no syncope. PULMONARY: No shortness of breath, no cough, no hemoptysis. GASTROINTESTINAL: No nausea or vomiting. Normoactive bowel sounds. NEUROLOGICAL: No headaches, no weakness, no numbness. HEMATOLOGICAL: Denies any bleeding or petechiae. GENITOURINARY: Denies any burning micturition, frequency, or urgency. MUSCULOSKELETAL/RHEUMATOLOGICAL: Denies any joint pain, swelling, or any muscle pain. ENDOCRINE: Denies any polyuria or polydipsia. Past Medical History Past Medical History: Cancer, COPD, CVA/TIA, GERD/Reflux, Musculoskeletal Disorder, Neurologic Disorder, Pneumonia, Rheumatoid Arthritis (RA), Skin Disorder Additional Past Medical History / Comment(s): 2016 FALL/LT HIP FX(sx). 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 KIDNEY DX, PAD,"difficulty swallowing", uti-ecoli 2016, over active bladder wears a brief. History of Any Multi-Drug Resistant Organisms: None Reported Past Surgical History: Appendectomy, Hysterectomy Additional Past Surgical History / Comment(s): brain aneursym with surgery and angioplasty, aaa repair also, jani cataract, skin ca removed, lt breast bx and cyst removed, d&c, colonoscopy, orif lt hip, ORIF RT HIP, EGD Past Anesthesia/Blood Transfusion Reactions: No Reported Reaction Past Psychological History: No Psychological Hx Reported Past Alcohol Use History: None Reported Past Drug Use History: None Reported - Past Family History Mother Additional Family Medical History / Comment(s): BOWEL PROBLEMS/DIVERTICULAR DIEASE. LIVED TO BE 96 YEARS OLD Father History Unknown: Yes Additional Family Medical History / Comment(s): IN HIS SLEEEP AT AGE 86 Sister(s) Family Medical History: Cancer Additional Family Medical History / Comment(s): COLON Brother(s) Family Medical History: Cancer Additional Family Medical History / Comment(s): THROAT CANCER Medications and Allergies Home Medications Medication Instructions Recorded Confirmed Type amLODIPine [Norvasc] 2.5 mg PO DAILY 08/12/19 06/29/20 History Omeprazole 20 mg PO AC-BID 06/29/20 06/29/20 History Oxybutynin Chloride [Ditropan] 5 mg PO BID 06/29/20 06/29/20 History levETIRAcetam [Keppra] 250 mg PO BID 06/29/20 06/29/20 History Allergies Allergy/AdvReac Type Severity Reaction Status Date / Time gluten Allergy Unknown Verified 06/29/20 09:30 codeine AdvReac Nausea & Verified 06/29/20 09:30 Vomiting Physical Exam Vitals: Vital Signs Temp Pulse Resp BP Pulse Ox 06/29/20 12:25 74 18 134/89 99 06/29/20 10:48 67 18 163/82 97 06/29/20 09:27 97.7 F 82 18 133/77 98 Intake and Output 06/28/20 06/29/20 06/29/20 22:59 06:59 14:59 Other: Weight 46.266 kg -GENERAL: The patient is alert and oriented x3, not in any acute distress. Thin built HEENT: Pupils are round and equally reacting to light. EOMI. No scleral icterus. No conjunctival pallor. Normocephalic, atraumatic. No pharyngeal erythema. No thyromegaly. CARDIOVASCULAR: S1 and S2 present. No murmurs, rubs, or gallops. PULMONARY: Chest is clear to auscultation, no wheezing or crackles. -ABDOMEN: Soft, very mild LLQ tenderness, no rebound tenderness or guarding and abdomen is soft, nondistended, normoactive bowel sounds. No palpable organomegaly. MUSCULOSKELETAL: No joint swelling or deformity. EXTREMITIES: No cyanosis, clubbing, or pedal edema. NEUROLOGICAL: Gross neurological examination did not reveal any focal deficits. SKIN: No rashes. No petechiae Results CBC & Chem 7: 06/29/20 10:48 06/29/20 10:48 Labs: Abnormal Lab Results - Last 24 Hours (Table) 06/29/20 Range/Units 10:48 Sodium 136 L (137-145) mmol/L Chloride 110 H (98-107) mmol/L Carbon Dioxide 17 L (22-30) mmol/L BUN 36 H (7-17) mg/dL Creatinine 2.30 H (0.52-1.04) mg/dL Glucose 102 H (74-99) mg/dL Assessment and Plan Assessment: Chest pain, rule out cardiac causes light left lower quadrant abdominal pain. 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 We'll do serial troponins, cardiology consult. Continue with aspirin. Continue gentle hydration and follow-up creatinine stopped and abdominal pain is very mild and improving we will hold on further workup and if her symptoms persist or worsen despite tomorrow then will reassess. Labs and medication were reviewed.. Continue same treatment. Continue with symptomatic treatment. Resume home medication. Monitor lytes and vitals. DVT and GI prophylaxis. Further recommendations depends on the clinical course of the patient DVT prophylaxis: Subcutaneous heparin GI Prophylaxis: Pepcid Prognosis is guarded
[2020-06-29] MEDS: levETIRAcetam 250 MG TAB PO SCH (23:18)
[2020-06-30 02:12] VITALS: RESP 16
[2020-06-30] MEDS: levETIRAcetam 250 MG TAB PO SCH (08:21)
[2020-06-30] MEDS ORDERED: ASPIRIN 325 MG TAB PO SCH (09:00)
[2020-06-30] MEDS ORDERED: amLODIPine 2.5 MG TAB PO SCH (09:00)
[2020-06-30] MEDS ORDERED: OXYBUTYNIN CHLORIDE 5 MG TAB PO SCH (09:00)
--- NOTE | 2020-06-30 09:54 | P.CRDCN ---
History of Present Illness History of present illness: HISTORY OF PRESENTING ILLNESS This is a pleasant 84 years old female with significant past medical history of CVA/TIA, GERD, rheumatoid arthritis, history of seizure, chronic kidney disease. She saw Dr. Aguiar in the office in 2012. She currently does not follow with a operations research engineer. We have been asked to see in consultation for chest pain. Patient is seen and examined at bedside. She states her chest pain started yesterday morning around 7am. Patient woke up and had breakfast and started to have left sided rib and left upper abdominal pain. Of note, patient was having diarrhea a couple days prior and body aches. Her pain is mostly on the left side of her rib and abdomen. She states she did fall on that left side about a month ago. She did feel some midsternal burning after she ate and felt she may have diarrhea again. Left sided Pain is non-exertional. No shortness of breath, palpitations, diaphoresis, or nausea. She has some mild left upper quadrant abdominal pain and tenderness with palpation. Pain is sharp at times. She denies history of diabetes, [place], coronary artery disease. She denies symptoms of orthopnea or PND. She denies tobacco and alcohol use. She states she is compliant with medication. EKG showing normal sinus rhythm at 63 BPM with no significant ST-T changes. Laboratory reviewed, Troponin are negative 3, scr 2.30 (baseline is around 1.5-1.8), sodium 136, potassium 4.2, magnesium 2.1, liver enzymes within normal limits, WBC 5.1, hemoglobin 11.9, platelets 192, COvid-19 negative. Chest x-ray negative for any acute cardiopulmonary process. Current home cardiac medications include amlodipine 2.5mg daily. REVIEW OF SYSTEMS At the time of my exam: CONSTITUTIONAL: Denies fever or chills. CARDIOVASCULAR: Denies chest pain, shortness of breath, orthopnea, PND or palpitations. RESPIRATORY: Denies cough. GASTROINTESTINAL: +LUQ abdominal pain. +diarrhea Denies constipation, nausea or vomiting. MUSCULOSKELETAL: +left sided rib pain Denies myalgias. NEUROLOGIC: Denies numbness, tingling, headacbe or weakness. ENDOCRINE: Denies fatigue, weight change, polydipsia or polyurina. GENITOURINARY: Denies burning, hematuria or urgency with micturation. HEMATOLOGIC: Denies history of anemia or bleeding. PHYSICAL EXAMINATION Blood pressure 157/79 heart rate 68 afebrile and maintaining oxygen saturation on room air. CONSTITUTIONAL: No apparent distress. HEENT: Head is normocephalic. Pupils are equal, round. Sclerae anicteric. Mucous membranes of the mouth are moist. No JVD. No carotid bruit. CHEST EXAMINATION: Lungs are clear to auscultation. Left sided chest wall tenderness is noted on palpation. HEART EXAMINATION: Regular rate and rhythm. S1, S2 heard. No murmurs, gallops or rub. ABDOMEN: Soft. Tenderness to LUQ with palpation Positive bowel sounds. EXTREMITIES: 2+ peripheral pulses, no lower extremity edema and no calf tenderness. SKIN: intact NEUROLOGIC EXAMINATION: Patient is awake, alert and oriented x3. ASSESSMENT Chest pain, atypical acute coronary syndrome has been ruled out Acute on Chronic Kidney Disease Hypertension History of CVA/TIA History of seizure disorder- patient is on Keppra. PLAN An acute coronary event has been ruled out with no EKG evidence of ischemia and negative cardiac enzymes. Patient can follow up with Dr. Thacker in the outpatient office for an outpatient stress test to assess for stress induce cardiac ischemia We will sign off at this time. Please reach out for any further questions or concerns. Thank you kindly for this consultation. Nurse Practitioner note has been reviewed, I agree with a documented findings and plan of care. Patient was seen and examined. Past Medical History Past Medical History: Cancer, COPD, CVA/TIA, GERD/Reflux, Musculoskeletal Disorder, Neurologic Disorder, Pneumonia, Rheumatoid Arthritis (RA), Skin Disord er Additional Past Medical History / Comment(s): 2016 FALL/LT HIP FX(sx). 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 KIDNEY DX, PAD,"difficulty swallowing", uti-ecoli 2016, over active bladder wears a brief. History of Any Multi-Drug Resistant Organisms: None Reported Past Surgical History: Appendectomy, Hysterectomy Additional Past Surgical History / Comment(s): brain aneursym with surgery and angioplasty, aaa repair also, jani cataract, skin ca removed, lt breast bx and cyst removed, d&c, colonoscopy, orif lt hip, ORIF RT HIP, EGD Past Anesthesia/Blood Transfusion Reactions: No Reported Reaction Past Psychological History: No Psychological Hx Reported Past Alcohol Use History: None Reported Past Drug Use History: None Reported - Past Family History Mother Additional Family Medical History / Comment(s): BOWEL PROBLEMS/DIVERTICULAR DIEASE. LIVED TO BE 96 YEARS OLD Father History Unknown: Yes Additional Family Medical History / Comment(s): IN HIS SLEEEP AT AGE 86 Sister(s) Family Medical History: Cancer Additional Family Medical History / Comment(s): COLON Brother(s) Family Medical History: Cancer Additional Family Medical History / Comment(s): THROAT CANCER Medications and Allergies Home Medications Medication Instructions Recorded Confirmed Type amLODIPine [Norvasc] 2.5 mg PO DAILY 08/12/19 06/29/20 History Omeprazole 20 mg PO AC-BID 06/29/20 06/29/20 History Oxybutynin Chloride [Ditropan] 5 mg PO BID 06/29/20 06/29/20 History levETIRAcetam [Keppra] 250 mg PO BID 06/29/20 06/29/20 History Allergies Allergy/AdvReac Type Severity Reaction Status Date / Time gluten Allergy Unknown Verified 06/29/20 09:30 codeine AdvReac Nausea & Verified 06/29/20 09:30 Vomiting Physical Exam Vitals: Vital Signs Temp Pulse Pulse Resp BP BP Pulse Ox 06/30/20 07:00 97.4 F L 68 16 157/79 96 06/30/20 02:00 97.6 F 57 L 16 128/70 96 06/30/20 01:04 18 06/29/20 22:22 65 18 155/79 96 06/29/20 18:23 98 F 64 18 131/75 96 06/29/20 15:36 79 18 141/79 96 06/29/20 12:25 74 18 134/89 99 06/29/20 10:48 67 18 163/82 97 06/29/20 09:27 97.7 F 82 18 133/77 98 Intake and Output 06/29/20 06/30/20 06/30/20 22:59 06:59 14:59 Intake Total 400 400 Balance 400 400 Intake: Intake, IV Titration 400 400 Amount Sodium Chloride 0.9% 1, 400 400 000 ml @ 50 mls/hr IV . Q20H [facility] Rx#:[id number] Other: Voiding Method External Catheter External Catheter # Voids 2 2 Weight 46.266 kg Results 06/29/20 10:48 06/29/20 10:48 Cardiac Enzymes 06/29/20 06/29/20 06/29/20 Range/Units 10:48 10:48 12:30 AST 31 (14-36) U/L Troponin I <0.012 <0.012 (0.000-0.034) ng/mL 06/29/20 Range/Units 18:34 AST (14-36) U/L Troponin I 0.018 (0.000-0.034) ng/mL Coagulation 06/29/20 Range/Units 10:48 PT 10.1 (9.0-12.0) sec APTT 22.3 (22.0-30.0) sec CBC 06/29/20 Range/Units 10:48 WBC 5.1 (3.8-10.6) k/uL RBC 3.92 (3.80-5.40) m/uL Hgb 11.9 (11.4-16.0) gm/dL Hct 34.9 (34.0-46.0) % Plt Count 192 (150-450) k/uL Comprehensive Metabolic Panel 06/29/20 Range/Units 10:48 Sodium 136 L (137-145) mmol/L Potassium 4.2 (3.5-5.1) mmol/L Chloride 110 H (98-107) mmol/L Carbon Dioxide 17 L (22-30) mmol/L BUN 36 H (7-17) mg/dL Creatinine 2.30 H (0.52-1.04) mg/dL Glucose 102 H (74-99) mg/dL Calcium 9.3 (8.4-10.2) mg/dL AST 31 (14-36) U/L ALT 12 (4-34) U/L Alkaline Phosphatase 79 (38-126) U/L Total Protein 8.1 (6.3-8.2) g/dL Albumin 4.0 (3.5-5.0) g/dL Current Medications Generic Name Dose Route Start Last Admin Trade Name Freq PRN Reason Stop Dose Admin Amlodipine Besylate 2.5 mg 06/30/20 09:00 Amlodipine 2.5 Mg Tab PO DAILY MARÍA Aspirin 325 mg 06/30/20 09:00 Aspirin 325 Mg Tab PO DAILY MARÍA Sodium Chloride 1,000 mls @ 50 mls/hr 06/29/20 13:00 06/29/20 23:18 Saline 0.9% IV 50 mls/hr .Q20H MARÍA Administration Levetiracetam 250 mg 06/29/20 22:00 06/29/20 23:18 Levetiracetam 250 Mg Tab PO 250 mg BID MARÍA Administration Naloxone HCl 0.2 mg 06/29/20 12:56 Naloxone 0.4 Mg/Ml 1 Ml Vial IV Q2M PRN Opioid Reversal Oxybutynin Chloride 5 mg 06/30/20 09:00 Oxybutynin Chloride 5 Mg Tab PO BID [facility] Intake and Output 06/29/20 06/30/20 06/30/20 22:59 06:59 14:59 Intake Total 400 400 Balance 400 400 Intake: Intake, IV Titration 400 400 Amount Sodium Chloride 0.9% 1, 400 400 000 ml @ 50 mls/hr IV . Q20H [facility] Rx#:[id number] Other: Voiding Method External Catheter External Catheter # Voids 2 2 Weight 46.266 kg 06/29/20 10:48 06/29/20 10:48
[2020-06-30 13:35] VITALS: BMI 17.5
--- NOTE | 2020-06-30 13:52 | XR ---
KUB HISTORY: Left lower quadrant pain Frontal KUB correlated prior exam 10/09/2017 Postop changes are again noted to the left hip. There are overlying artifacts. Bone mineralization is reduced. Surgical clips present in the midabdomen. No evident bowel obstruction or pneumoperitoneum. Multiple calcifications noted within the pelvis are likely vascular. There is a spinal curvature pre sent. Patchy density suspected at the lung bases. IMPRESSION: Postop changes. Osteopenia. Spinal curvature. Question basilar atelectasis, consider foll ow-up PA and lateral chest x-ray.
[2020-06-30 14:31] VITALS: BP 132/80; PULSE 64; TEMP 97
[2020-06-30 15:05] LABS: African American GFR (CKD) 24 (>60 ml/min/1.73 sqM); Anion Gap 12 mmol/L; Blood Urea Nitrogen 28 mg/dL (7-17); Calcium 9.5 mg/dL (8.4-10.2); Carbon Dioxide 22 mmol/L (22-30); Chloride 108 mmol/L (98-107); Glucose 113 mg/dL (74-99); Non-African American GFR(CKD) 20 (>60 ml/min/1.73 sqM); Sodium 142 mmol/L (137-145)
[2020-06-30] MEDS ORDERED: SODIUM CHLORIDE 0.9% 500 ML 500 ML IV ONE (15:10)
--- NOTE | 2020-06-30 21:05 | P.DS ---
Providers Date of admission: 06/29/20 12:56 Attending physician: Emanuel Hutchison MD Consults: 06/29/20 12:56 Consult Physician Routine Consulting Provider: Darshan Lloyd Consult Reason/Comments: CP Do you want consulting provider notified?: Yes Primary care physician: [facility] Course: Diagnoses: Chest pain, resolved and medical technician assistant cleared the patient for discharge light left lower quadrant abdominal pain. Had diarrhea yesterday which is stopped today. No abdominal pain upon discharge. 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 Patient presents because of chest pain. Her chest pain when day duration. Insecticide Maker evaluated the patient and found it atypical chest pain and acute coronary artery disease has been ruled out, chest pain has completely resolved upon discharge and directed as 0/10 per patient History the patient has complained from left lower quadrant abdominal pain and some diarrhea, this afternoon when I saw the patient her diarrhea has stopped and her left abdominal pain was absent when I saw the patient however it comes and go, it is a mild pain rated as 2/10. I offered to do a CT of the abdomen without contrast, patient does not want to do the test however she agrees for KUB. KUB was ordered showing normal obstruction (KUB: Postop changes. Osteopenia. Spinal curvature. Question basilar atelectasis) On admission her creatinine was elevated 2.0, trace of gentle hydration and creatinine improved down to 2.1 today, baseline is 1.3-1.5. Patient refused more IV fluids and she wants to be discharged, actually when I came to see the patient second time to talk about her fluid management she was already addressed up sitting at the bedside H, soon after her arrived and both of them the want her to be discharged, patient was adamant to leave and refused fluid therapy. Risks including but not limited to risk of fall, fracture worsening diarrhea or abdominal pain are explained she verbalized understanding but she refused to stay. Patient was instructed if she develops any worsening symptoms to come back to the hospital several symptoms are discussed with the patient. Also I talked to her PCP Dr. Johnson and an appointment made for her on 07/02 in 2 days and patient agrees and states she will follow-up. Patient was discharged on normal saline tablets and oral hydration is encouraged and she agrees Insecticide Maker cleared the patient for discharge Problems and management plan were discussed with the patient and he verbalized understanding and acceptance Patient was found stable and can be discharged home in guarded prognosis however he needs follow-up as an outpatient. Patient was instructed to follow up with PCP within one week and patient agrees with the appointments made for her on 07/02. Patient also was instructed to follow up with her medical technician assistant Dr. Thacker in 2-3 weeks and she agrees Also patient declined physical therapy evaluation Physical exam Gen: patient is a AAOx3, no distress CVS: S1-S2, RRR, no murmur Lungs: B/L CTA, no wheezing Abdomen: soft, no distention, no tenderness, positive bowel sounds Extremity: no leg edema or induration Time spent more than 35 minutes Threadlike 4/10 in severity butcompletely resolved and treated as 0/10, it lasts usually for 5-6 minutes mainly on the left side and not irritating associated wi th body aches and diarrhea about twice per day but today she does not have diarrhea but she has mild left lower quadrant abdominal pain and tenderness but no rebound tenderness. Usually have abdominal pain last for 1-2 hours tepid last night and then resolved but came back at 9.5/10 in severity, nonradiating. Vitals are stable. Labs are unremarkable including CBC INR and liver enzymes. BMP showing increased creatinine of 2.3, baseline creatinine is 1.5-1.8. Troponin are negative 2 with less than 0.012. EKG showing normal sinus rhythm at 63 BPM with no significant ST-T changes. Chest x-ray: Negative process. In the emergency room patient was started on aspirin and normal sinus with a power She has recent urinary bladder ultrasound on 06/10/2020 showing no intraluminal mass or abnormal wall thickening. After voiding bladder is nearly completely emptied Patient Condition at Discharge: Stable Plan - Discharge Summary Discharge Rx Participant: No New Discharge Prescriptions: New Sodium Chloride Tab 1 gm PO TID 3 Days #10 tablet Continue Oxybutynin Chloride [Ditropan] 5 mg PO BID #60 tab Omeprazole 20 mg PO AC-BID #60 cap Changed levETIRAcetam [Keppra] 250 mg PO BID #60 tab Discontinued amLODIPine [Norvasc] 2.5 mg PO DAILY Discharge Medication List Omeprazole 20 mg PO AC-BID #60 cap 06/30/20 [Rx] Oxybutynin Chloride [Ditropan] 5 mg PO BID #60 tab 06/30/20 [Rx] Sodium Chloride Tab 1 gm PO TID 3 Days #10 tablet 06/30/20 [Rx] levETIRAcetam [Keppra] 250 mg PO BID #60 tab 06/30/20 [Rx] Follow up Appointment(s)/Referral(s): Nisha Thacker MD [STAFF PHYSICIAN] - 3 Weeks (we recommend stress test as outpatient) Justyn Johnson DO [Primary Care Provider] - 07/02/20 1:00 pm [facility], [NON-STAFF] - 1-2 Days Ambulatory/Diagnostic Orders: Basic Metabolic Panel [LAB.AMB] Location: None Selected Patient Instructions/Handouts: Chest Pain (DC) Activity/Diet/Wound Care/Special Instructions: heart healthy diet; encourage oral hydration activity is restricted till you see your doctor Discharge Disposition: HOME WITH HOME HEALTH SERVICES
== END 2020-06-30 15:50 | disposition home health service (06) ==
LOC: EC 09:25 → 1SOBS 12:56 → 6NMEDSUR 15:58
PROVIDERS: ADMIT Internal Medicine; ATTEND Internal Medicine
DX: R07.89 Other chest pain (principal); N17.9 Acute kidney failure, unspecified; R10.32 Left lower quadrant pain; J44.9 Chronic obstructive pulmonary disease, unspecified; I12.9 Hypertensive chronic kidney disease with stage 1 through stage 4 chronic kidney disease, or unspecified chronic kidney disease; N18.30 Chronic kidney disease, stage 3 unspecified; K21.9 Gastro-esophageal reflux disease without esophagitis; M06.9 Rheumatoid arthritis, unspecified; E44.1 Mild protein-calorie malnutrition; K57.90 Diverticulosis of intestine, part unspecified, without perforation or abscess without bleeding; I71.2 Thoracic aortic aneurysm, without rupture; G40.909 Epilepsy, unspecified, not intractable, without status epilepticus; Z91.19 Patient's noncompliance with other medical treatment and regimen; M85.80 Other specified disorders of bone density and structure, unspecified site; K90.0 Celiac disease; M54.16 Radiculopathy, lumbar region; L30.9 Dermatitis, unspecified; N32.81 Overactive bladder; R13.10 Dysphagia, unspecified; Z20.822 Contact with and (suspected) exposure to COVID-19; Z79.899 Other long term (current) drug therapy; Z88.5 Allergy status to narcotic agent; Z86.73 Personal history of transient ischemic attack (TIA), and cerebral infarction without residual deficits; Z87.01 Personal history of pneumonia (recurrent); Z90.710 Acquired absence of both cervix and uterus; Z91.81 History of falling; Z90.49 Acquired absence of other specified parts of digestive tract; Z87.81 Personal history of (healed) traumatic fracture; Z85.828 Personal history of other malignant neoplasm of skin; Z87.440 Personal history of urinary (tract) infections; Z86.79 Personal history of other diseases of the circulatory system; Z98.42 Cataract extraction status, left eye; Z98.41 Cataract extraction status, right eye; Z80.8 Family history of malignant neoplasm of other organs or systems; Z80.0 Family history of malignant neoplasm of digestive organs; Z83.79 Family history of other diseases of the digestive system
CPT/HCPCS: 93005 ×2; 99285; 36415; 80053; 80048; 83735; 84484; 85025; 85610; 85730; 81001; 87635; 71046; 74018; G0378 ×3

== ENCOUNTER 2020-10-06 10:48 | Emergency (ER) | payer MEDICARE ==
[2020-10-06 11:03] VITALS: RESP 18; TEMP 97.5
[2020-10-06] MEDS ORDERED: SODIUM CHLORIDE 0.9% 500 ML 500 ML IV STA (11:40)
--- NOTE | 2020-10-06 11:46 | ED ---
Nausea/Vomiting/Diarrhea HPI - General Chief complaint: Nausea/Vomiting/Diarrhea Stated complaint: kidney problems, diarrhea Source: patient, RN notes reviewed, old records reviewed Mode of arrival: wheelchair Limitations: no limitations - History of Present Illness Initial comments: 85-year-old cachectic white female, alert and oriented 4, presents to the emergency room with diarrhea that's been intermittent for the last 2 weeks. Patient states that last week she had 3 episodes of black diarrhea. Yesterday she was fine but today she had another episode of watery black diarrhea. Patient does have a history of irritable bowel syndrome and takes MiraLAX and Colace. She did call her primary care doctor Dr. Quinnoes and was told that they may need to stop her laxatives. Patient states that she does have left lower quadrant pain but denies any fevers. She has a history of CVA, rheumatoid arthritis, renal disease with surgical history of an appendectomy hysterectomy a nd aortic aneurysm repair in 2016. Patient denies any antibiotic use in the past 3 months. She states that she has a decreased appetite and has been losing weight and put her on appetite stimulant pill a month and a half ago but has not improved her appetite. Patient denies any fever or shortness of breath or chest pain. MD complaint: diarrhea, abdominal pain -: week(s) (2) Description of Diarrhea: water, other (Black) Associated Abdominal Pain: Yes Location: LLQ Severity scale (1-10): 0 Quality: cramping Consistency: intermittent Improves with: none Worsens with: none Context: history of abdominal surgery Associated Symptoms: loss of appetite - Related Data Previous Rx's Medication Instructions Recorded Omeprazole 20 mg PO AC-BID #60 cap 06/30/20 Oxybutynin Chloride [Ditropan] 5 mg PO BID #60 tab 06/30/20 Sodium Chloride Tab 1 gm PO TID 3 Days #10 tablet 06/30/20 levETIRAcetam [Keppra] 250 mg PO BID #60 tab 06/30/20 Allergies Allergy/AdvReac Type Severity Reaction Status Date / Time gluten Allergy Unknown Verified 10/06/20 11:02 codeine AdvReac Nausea & Verified 10/06/20 11:02 Vomiting Review of Systems ROS Statement: Those systems with pertinent positive or pertinent negative responses have been documented in the HPI. ROS Other: All systems not noted in ROS Statement are negative. Past Medical History Past Medical History: Cancer, COPD, CVA/TIA, GERD/Reflux, Musculoskeletal Disorder, Neurologic Disorder, Pneumonia, Renal Disease, Rheumatoid Arthritis (RA), Skin Disorder Additional Past Medical History / Comment(s): 2016 FALL/LT HIP FX(sx). 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 KIDNEY DX, PAD,"difficulty swallowing", uti-ecoli 2016, over active bladder wears a brief. History of Any Multi-Drug Resistant Organisms: None Reported Past Surgical History: Appendectomy, Hysterectomy Additional Past Surgical History / Comment(s): brain aneursym with surgery and angioplasty, aaa repair also, jani cataract, skin ca removed, lt breast bx and cyst removed, d&c, colonoscopy, orif lt hip, ORIF RT HIP, EGD Past Anesthesia/Blood Transfusion Reactions: No Reported Reaction Past Psychological History: No Psychological Hx Reported Smoking Status: Never smoker Past Alcohol Use History: None Reported Past Drug Use History: None Reported - Past Family History Mother Additional Family Medical History / Comment(s): BOWEL PROBLEMS/DIVERTICULAR DIEASE. LIVED TO BE 96 YEARS OLD Father History Unknown: Yes Additional Family Medical History / Comment(s): IN HIS SLEEEP AT AGE 86 Sister(s) Family Medical History: Cancer Additional Family Medical History / Comment(s): COLON Brother(s) Family Medical History: Cancer Additional Family Medical History / Comment(s): THROAT CANCER General Exam Limitations: no limitations General appearance: alert, in no apparent distress Head exam: Present: atraumatic, normocephalic, normal inspection Eye exam: Present: normal appearance, PERRL, EOMI. Absent: scleral icterus, conjunctival injection, periorbital swelling Pupils: Present: normal accommodation ENT exam: Present: normal exam, normal oropharynx, mucous membranes dry Neck exam: Present: normal inspection, full ROM. Absent: tenderness, meningismus, lymphadenopathy, thyromegaly Respiratory exam: Present: normal lung sounds bilaterally. Absent: respiratory distress, wheezes, rales, rhonchi, stridor, chest wall tenderness, accessory muscle use, decreased breath sounds, prolonged expiratory Cardiovascular Exam: Present: regular rate, normal rhythm, normal heart sounds. Absent: systolic murmur, diastolic murmur, rubs, gallop, clicks GI/Abdominal exam: Present: soft, tenderness (Left lower quadrant pain), normal bowel sounds. Absent: distended, guarding, rebound, rigid Extremities exam: Present: normal inspection, full ROM, normal capillary refill. Absent: tenderness, pedal edema, joint swelling, calf tenderness Back exam: Present: normal inspection, full ROM. Absent: tenderness, CVA tenderness (R), CVA tenderness (L), muscle spasm, paraspinal tenderness, vertebral tenderness, rash noted Neurological exam: Present: alert, oriented X3, CN II-XII intact Psychiatric exam: Present: normal affect, normal mood Skin exam: Present: warm, dry, intact, normal color. Absent: rash, cyanosis, diaphoretic, erythema, petechiae, pallor, mottled Course Vital Signs 10/06/20 10:58 Temperature 97.5 F L Pulse Rate 89 Respiratory 18 Rate Blood Pressure 143/83 O2 Sat by Pulse 96 Oximetry Medical Decision Making - Medical Decision Making WBC count is 5.6, potassium is 4.5, 6, and urine is clear. Patient BUN and creatinine remain elevated at [address] the abdomen and pelvis without contrast shows extensive diverticulosis, multiple air-filled small bowel loops but no obstruction. There is no free air or retroperitoneal adenopathy. There is punctate calcifications in the upper pole of the left kidney. Patient feels better after IV fluid bolus. Patient has not been vomiting. Denies any hematochezia. She states that she has been taking Colace and MiraLAX that she has irritable bowel syndrome and pain from constipation is worse than the diarrhea. She states that she has spoken to her doctor about it and they did discuss discontinuing the laxatives. Patient was advised to stop the MiraLAX and take the Colace every other day. Follow-up with her primary care doctor this week. Patient is agreeable to discharge and following up with her primary care this week. She'll directed to return if increasing pain, fevers, or inability keep fluids down. Case discussed with Dr. Lozano. - Lab Data Result diagrams: 10/06/20 11:52 07/06/21 11:52 Lab Results 10/06/20 10/06/20 10/06/20 Range/Units 11:52 11:52 11:52 WBC 5.6 (3.8-10.6) k/uL RBC 4.43 (3.80-5.40) m/uL Hgb 12.8 (11.4-16.0) gm/dL Hct 39.9 (34.0-46.0) % MCV 90.2 (80.0-100.0) fL MCH 29.0 (25.0-35.0) pg MCHC 32.1 (31.0-37.0) g/dL RDW 14.0 (11.5-15.5) % Plt Count 225 (150-450) k/uL MPV 6.6 Neutrophils % 58 % Lymphocytes % 31 % Monocytes % 7 % Eosinophils % 1 % Basophils % 1 % Neutrophils # 3.2 (1.3-7.7) k/uL Lymphocytes # 1.7 (1.0-4.8) k/uL Monocytes # 0.4 (0-1.0) k/uL Eosinophils # 0.1 (0-0.7) k/uL Basophils # 0.0 (0-0.2) k/uL Sodium (137-145) mmol/L Potassium (3.5-5.1) mmol/L Chloride (98-107) mmol/L Carbon Dioxide (22-30) mmol/L Anion Gap mmol/L BUN (7-17) mg/dL Creatinine (0.52-1.04) mg/dL Est GFR (CKD-EPI)AfAm (>60 ml/min/1.73 sqM) Est GFR (CKD-EPI)NonAf (>60 ml/min/1.73 sqM) Glucose (74-99) mg/dL Calcium (8.4-10.2) mg/dL Magnesium (1.6-2.3) mg/dL Total Bilirubin (0.2-1.3) mg/dL AST (14-36) U/L ALT (4-34) U/L Alkaline Phosphatase (38-126) U/L Total Protein (6.3-8.2) g/dL Albumin (3.5-5.0) g/dL Amylase (30-110) U/L Lipase (23-300) U/L Urine Color Light Yellow Urine Appearance Clear (Clear) Urine pH 5.5 (5.0-8.0) Ur Specific [place] 1.006 (1.001-1.035) Urine Protein Negative (Negative) Urine Glucose (UA) Negative (Negative) Urine Ketones Negative (Negative) Urine Blood Negative (Negative) Urine Nitrite Negative (Negative) Urine Bilirubin Negative (Negative) Urine Urobilinogen <2.0 (<2.0) mg/dL Ur Leukocyte Esterase Trace H (Negative) Urine RBC 1 (0-5) /hpf Urine WBC 2 (0-5) /hpf Urine Bacteria Moderate H (None) /hpf Stool Occult Blood Negative (Negative) 10/06/20 Range/Units 11:52 WBC (3.8-10.6) k/uL RBC (3.80-5.40) m/uL Hgb (11.4-16.0) gm/dL Hct (34.0-46.0) % MCV (80.0-100.0) fL MCH (25.0-35.0) pg MCHC (31.0-37.0) g/dL RDW (11.5-15.5) % Plt Count (150-450) k/uL MPV Neutrophils % % Lymphocytes % % Monocytes % % Eosinophils % % Basophils % % Neutrophils # (1.3-7.7) k/uL Lymphocytes # (1.0-4.8) k/uL Monocytes # (0-1.0) k/uL Eosinophils # (0-0.7) k/uL Basophils # (0-0.2) k/uL Sodium 140 (137-145) mmol/L Potassium 4.5 (3.5-5.1) mmol/L Chloride 108 H (98-107) mmol/L Carbon Dioxide 25 (22-30) mmol/L Anion Gap 7 mmol/L BUN 35 H (7-17) mg/dL Creatinine 2.31 H (0.52-1.04) mg/dL Est GFR (CKD-EPI)AfAm 21 (>60 ml/min/1.73 sqM) Est GFR (CKD-EPI)NonAf 19 (>60 ml/min/1.73 sqM) Glucose 106 H (74-99) mg/dL Calcium 9.9 (8.4-10.2) mg/dL Magnesium 2.2 (1.6-2.3) mg/dL Total Bilirubin 0.4 (0.2-1.3) mg/dL AST 32 (14-36) U/L ALT 13 (4-34) U/L Alkaline Phosphatase 101 (38-126) U/L Total Protein 8.5 H (6.3-8.2) g/dL Albumin 4.3 (3.5-5.0) g/dL Amylase 109 (30-110) U/L Lipase 130 (23-300) U/L Urine Color Urine Appearance (Clear) Urine pH (5.0-8.0) Ur Specific [place] (1.001-1.035) Urine Protein (Negative) Urine Glucose (UA) (Negative) Urine Ketones (Negative) Urine Blood (Negative) Urine Nitrite (Negative) Urine Bilirubin (Negative) Urine Urobilinogen (<2.0) mg/dL Ur Leukocyte Esterase (Negative) Urine RBC (0-5) /hpf Urine WBC (0-5) /hpf Urine Bacteria (None) /hpf Stool Occult Blood (Negative) Disposition Clinical Impression: Diverticulosis, 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 Follow-up with your primary care doctor this week. Increase your fluid intake at home. Return to the emergency room with any increasing pain, inability to keep food or fluid down, or fevers. Is patient prescribed a controlled substance at d/c from ED?: No Referrals: Justyn Johnson DO [Primary Care Provider] - 1-2 days Time of Disposition: 13:51
[2020-10-06 12:19] LABS: Basophils % (A) 1 %; Eosinophils # (A) 0.1 k/uL (0-0.7); Eosinophils % (A) 1 %; HCT 39.9 % (34.0-46.0); HGB 12.8 gm/dL (11.4-16.0); Lymphocytes # (A) 1.7 k/uL (1.0-4.8); Lymphocytes % (A) 31 %; MCHC 32.1 g/dL (31.0-37.0); MCV 90.2 fL (80.0-100.0); Mean Platelet Volume 6.6; Monocytes # (A) 0.4 k/uL (0-1.0); Monocytes % (A) 7 %; Neutrophils # (A) 3.2 k/uL (1.3-7.7); Neutrophils % (A) 58 %; Platelet Count 225 k/uL (150-450); RBC 4.43 m/uL (3.80-5.40); WBC 5.6 k/uL (3.8-10.6)
[2020-10-06 12:37] LABS: Albumin 4.3 g/dL (3.5-5.0); Appearance,Urine Clear (Clear); Bacteria,Urine Moderate /hpf; Bilirubin,Urine Negative (Negative); Blood,Urine Negative (Negative); Calcium 9.9 mg/dL (8.4-10.2); Color,Urine Light Yellow; Glucose,Urine (UA) Negative (Negative); Ketones,Urine Negative (Negative); Leukocyte Esterase,Urine Trace (Negative); Magnesium 2.2 mg/dL (1.6-2.3); Nitrite,Urine Negative (Negative); PH, Urine 5.5 (5.0-8.0); Potassium 4.5 mmol/L (3.5-5.1); Protein,Urine Negative (Negative); RBC,Urine 1 /hpf (0-5); Specific Gravity,Urine 1.006 (1.001-1.035); Total Bilirubin 0.4 mg/dL (0.2-1.3); Total Protein 8.5 g/dL (6.3-8.2); Urobilinogen,Urine <2.0 mg/dL (<2.0); WBC,Urine 2 /hpf (0-5)
--- NOTE | 2020-10-06 13:15 | CT ---
EXAMINATION TYPE: CT abdomen pelvis wo con DATE OF EXAM: 10/06/2020 COMPARISON: CT 10/04/2019 HISTORY: diarrhea, kidney issues CT DLP: 295.5 mGycm Automated exposure control for dose reduction was used. TECHNIQUE: Helical acquisition of images from the lung bases through the pelvis. FINDINGS: Lack of contrast could compromise sensitivity. LUNG BASES: No significant abnormality is appreciated. AORTA: Descending thoracic aorta is aneurysmal measuring 2.9 cm, extensive atheromatous changes are present, suspect postop change to the abdominal aorta at the infrarenal location. LIVER/GB: Low dense focus within the left lobe liver measures 1 cm and likely represents cyst, gallbl adder is normal. PANCREAS: No significant abnormality is seen. SPLEEN: No significant abnormality is seen. ADRENALS: No significant abnormality is seen. KIDNEYS: Mild pelvic caliectasis shows a similar appearance, parapelvic cysts noted on prior CT withi n the left kidney, punctate calcification present at the upper pole the left kidney. REPRODUCTIVE ORGANS: Not seen URINARY BLADDER: No significant abnormality is seen. BOWEL: Extensive diverticular changes noted especially in the sigmoid colon. Multiple air-filled sma ll bowel loops also noted, no evident obstruction FREE AIR: No Free Air is visible. ASCITES: None visible. PELVIC ADENOPATHY: None visualized. RETROPERITONEAL ADENOPATHY: No Retroperitoneal Adenopathy visible. OSSEOUS STRUCTURES: Postop change noted to the left hip as on prior. Degenerative disc changes are p resent in the visualized spine with associated facet arthropathy. Superior endplate L1, L3 shows defo rmity similar to prior, there is a spinal curvature. Old left ramus fracture shows a stable appearanc e. IMPRESSION: EXTENSIVE DIVERTICULOSIS. ADDITIONAL NONSPECIFIC FINDINGS DESCRIBED ABOVE. AORTIC ANEURYSM. NONCONTRA ST EXAM.
[2020-10-06 13:49] VITALS: BP 135/81; PULSE 73
== END 2020-10-06 14:20 | disposition home or self-care (01) ==
LOC: EC 10:48
DX: K57.90 Diverticulosis of intestine, part unspecified, without perforation or abscess without bleeding (principal); F55.2 Abuse of laxatives; R94.4 Abnormal results of kidney function studies; Z91.018 Allergy to other foods; Z88.5 Allergy status to narcotic agent
CPT/HCPCS: 36415; 74176; 80053; 81001; 82150; 82272; 83690; 83735; 85025; 96360; 99284

== ENCOUNTER 2021-01-01 16:40 | Emergency (ER) | payer MEDICARE ==
[2021-01-01 16:55] VITALS: RESP 16; TEMP 97.6
--- NOTE | 2021-01-01 16:59 | ED ---
General Adult HPI - General Chief complaint: Nausea/Vomiting/Diarrhea Stated complaint: Abd Pain,Nausea Time Seen by Provider: 01/01/21 16:43 Source: patient, EMS Mode of arrival: EMS Limitations: no limitations - History of Present Illness Initial comments: Dictation was produced using [employer] dictation software. please excuse any grammatical, word or spelling errors. Chief Complaint: 85-year-old female past medical history of stage V kidney disease presents to the emergency department for nausea, vomiting and abdominal pain History of Present Illness: 85-year-old female she is brought in by EMS. Patient allegedly has stage IV kidney disease. She states that she has plans to start dialysis in the near future. She's been having nausea and vomiting today. She states that her emesis looks like food. Patient denies any fever. She denies any abdominal pain currently. States that it was a crampy sensation to her mid abdomen. Nonradiating. Mild. She called her kidney doctor today and was instructed to come to the emergency department for concerns of worsening kidney function. Patient states that she feels like her symptoms are because she hasn't eaten yet. She is requesting a gluten-free diet. States she has h istory of celiac disease. The ROS documented in this emergency department record has been reviewed and confirmed by me. Those systems with pertinent positive or negative responses have been documented in the HPI. All other systems are other negative and/or noncontributory. PHYSICAL EXAM: General Impression: Alert and oriented x3, not in acute distress HEENT: Normocephalic atraumatic, extra-ocular movements intact, pupils equal and reactive to light bilaterally, mucous membranes moist. Cardiovascular: Heart regular rate and rhythm Chest: Able to complete full sentences, no retractions, no tachypnea Abdomen: abdomen soft, non-tender, non-distended, no organomegaly Musculoskeletal: Pulses present and equal in all extremities, no peripheral edema Motor: no focal deficits noted Neurological: CN II-XII grossly intact, no focal motor or sensory deficits noted Skin: Intact with no visualized rashes Psych: Normal affect and mood ED course: 85-year-old well-appearing female presents with several hours of nausea vomiting is nonbilious nonbloody. Vital Signs upon arrival are within acceptable limits. EKG interpretation: Ventricular rate 77, normal sinus rhythm,. Interval 170, QRS 82, QTC 470. No TN prolongation, no QTC prolongation, no ST or T-wave changes noted. EKG compared to 06/29/2020 showing no changes. Overall, this EKG is unremarkable Laboratory evaluation obtained. BUN is 28 with a creatinine 1.77. Patient renal markers appear to be within patient's usual limits actually slightly better. Patient reports that she's had creatinines gone up to 2 and 3. Oral at the bedside. Patient to go for discharge she is given prescription for antiemetics and analgesics. 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 - Related Data Previous Rx's Medication Instructions Recorded Omeprazole 20 mg PO AC-BID #60 cap 06/30/20 Oxybutynin Chloride [Ditropan] 5 mg PO BID #60 tab 06/30/20 Sodium Chloride Tab 1 gm PO TID 3 Days #10 tablet 06/30/20 levETIRAcetam [Keppra] 250 mg PO BID #60 tab 06/30/20 Ondansetron Odt [Zofran Odt] 4 mg PO Q8HR PRN #12 tab 01/01/21 oxyCODONE HCL/ACETAMINOPHEN 1 tab PO Q6HR PRN 3 Days #12 tab 01/01/21 [Percocet 5-325 mg] Allergies Allergy/AdvReac Type Severity Reaction Status Date / Time gluten Allergy Unknown Verified 01/01/21 16:55 codeine AdvReac Nausea & Verified 01/01/21 16:55 Vomiting Review of Systems ROS Statement: Those systems with pertinent positive or pertinent negative responses have been documented in the HPI. ROS Other: All systems not noted in ROS Statement are negative. Past Medical History Past Medical History: Cancer, COPD, CVA/TIA, GERD/Reflux, Musculoskeletal Disorder, Neurologic Disorder, Pneumonia, Renal Disease, Rheumatoid Arthritis (RA), Skin Disorder Additional Past Medical History / Comment(s): 2016 FALL/LT HIP FX(sx). 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 KIDNEY DX, PAD,"difficulty swallowing", uti-ecoli 2016, over active bladder wears a brief. ESRD History of Any Multi-Drug Resistant Organisms: None Reported Past Surgical History: Appendectomy, Hysterectomy, Orthopedic Surgery Additional Past Surgical History / Comment(s): brain aneursym with surgery and angioplasty, aaa repair also, jani cataract, skin ca removed, lt breast bx and cyst removed, d&c, colonoscopy, orif lt hip, ORIF RT HIP, EGD Past Anesthesia/Blood Transfusion Reactions: No Reported Reaction Past Psychological History: No Psychological Hx Reported Smoking Status: Never smoker Past Alcohol Use History: None Reported Past Drug Use History: None Reported - Past Family History Mother Additional Family Medical History / Comment(s): BOWEL PROBLEMS/DIVERTICULAR DIEASE. LIVED TO BE 96 YEARS OLD Father History Unknown: Yes Additional Family Medical History / Comment(s): IN HIS SLEEEP AT AGE 86 Sister(s) Family Medical History: Cancer Additional Family Medical History / Comment(s): COLON Brother(s) Family Medical History: Cancer Additional Family Medical History / Comment(s): THROAT CANCER General Exam Limitations: no limitations Course Vital Signs 01/01/21 16:41 Temperature 97.6 F Pulse Rate 79 Respiratory 16 Rate Blood Pressure 147/90 O2 Sat by Pulse 96 Oximetry Medical Decision Making - Lab Data Result diagrams: 01/01/21 17:00 01/01/21 17:00 Lab Results 01/01/21 01/01/21 01/01/21 Range/Units 17:00 17:00 17:00 WBC 5.0 (3.8-10.6) k/uL RBC 4.08 (3.80-5.40) m/uL Hgb 11.9 (11.4-16.0) gm/dL Hct 37.5 (34.0-46.0) % MCV 91.9 (80.0-100.0) fL MCH 29.3 (25.0-35.0) pg MCHC 31.8 (31.0-37.0) g/dL RDW 13.9 (11.5-15.5) % Plt Count 219 (150-450) k/uL MPV 7.2 Neutrophils % 70 % Lymphocytes % 21 % Monocytes % 6 % Eosinophils % 1 % Basophils % 0 % Neutrophils # 3.5 (1.3-7.7) k/uL Lymphocytes # 1.1 (1.0-4.8) k/uL Monocytes # 0.3 (0-1.0) k/uL Eosinophils # 0.1 (0-0.7) k/uL Basophils # 0.0 (0-0.2) k/uL Sodium 138 (137-145) mmol/L Potassium 4.3 (3.5-5.1) mmol/L Chloride 109 H (98-107) mmol/L Carbon Dioxide 20 L (22-30) mmol/L Anion Gap 9 mmol/L BUN 28 H (7-17) mg/dL Creatinine 1.77 H (0.52-1.04) mg/dL Est GFR (CKD-EPI)AfAm 30 (>60 ml/min/1.73 sqM) Est GFR (CKD-EPI)NonAf 26 (>60 ml/min/1.73 sqM) Glucose 105 H (74-99) mg/dL Plasma Lactic Acid [place] 0.9 (0.7-2.0) mmol/L Calcium 9.2 (8.4-10.2) mg/dL Magnesium 2.1 (1.6-2.3) mg/dL Total Bilirubin 0.5 (0.2-1.3) mg/dL AST 32 (14-36) U/L ALT 13 (4-34) U/L Alkaline Phosphatase 72 (38-126) U/L Total Protein 7.6 (6.3-8.2) g/dL Albumin 3.7 (3.5-5.0) g/dL Lipase 129 (23-300) U/L Disposition Clinical Impression: Nausea & vomiting Disposition: HOME SELF-CARE Condition: Good Instructions (If sedation given, give patient instructions): Acute Nausea and Vomiting (ED) Prescriptions: oxyCODONE HCL/ACETAMINOPHEN [Percocet 5-325 mg] 1 tab PO Q6HR PRN 3 Days #12 tab PRN Reason: Pain Ondansetron Odt [Zofran Odt] 4 mg PO Q8HR PRN #12 tab PRN Reason: Nausea Is patient prescribed a controlled substance at d/c from ED?: Yes If prescribed controlled substance>3 days was MAPS reviewed?: Prescribed <3 Days Referrals: Justyn Johnson DO [Primary Care Provider] - 1-2 days
[2021-01-01 17:14] LABS: Basophils % (A) 0 %; Eosinophils # (A) 0.1 k/uL (0-0.7); Eosinophils % (A) 1 %; HCT 37.5 % (34.0-46.0); HGB 11.9 gm/dL (11.4-16.0); Lymphocytes # (A) 1.1 k/uL (1.0-4.8); Lymphocytes % (A) 21 %; MCH 29.3 pg (25.0-35.0); MCHC 31.8 g/dL (31.0-37.0); MCV 91.9 fL (80.0-100.0); Mean Platelet Volume 7.2; Monocytes # (A) 0.3 k/uL (0-1.0); Monocytes % (A) 6 %; Neutrophils # (A) 3.5 k/uL (1.3-7.7); Neutrophils % (A) 70 %; Platelet Count 219 k/uL (150-450); RBC 4.08 m/uL (3.80-5.40); RDW 13.9 % (11.5-15.5)
[2021-01-01 17:37] LABS: Albumin 3.7 g/dL (3.5-5.0); Calcium 9.2 mg/dL (8.4-10.2); Magnesium 2.1 mg/dL (1.6-2.3); Potassium 4.3 mmol/L (3.5-5.1); Total Bilirubin 0.5 mg/dL (0.2-1.3); Total Protein 7.6 g/dL (6.3-8.2)
[2021-01-01] MEDS ORDERED: SODIUM CHLORIDE 0.9% 500 ML 500 ML IV STA (17:38)
[2021-01-01] MEDS ORDERED: ONDANSETRON 4 MG ODT STARTER PACK 2 TAB BTL PO STA (17:43)
[2021-01-01] MEDS ORDERED: oxyCODONE-APAP 7.5-325MG 1 EACH TAB PO STA (17:44)
[2021-01-01 18:42] VITALS: BP 133/85; PULSE 70
== END 2021-01-01 18:30 | disposition home or self-care (01) ==
LOC: EC 16:40
DX: R11.2 Nausea with vomiting, unspecified (principal); R19.7 Diarrhea, unspecified; R10.9 Unspecified abdominal pain; J44.9 Chronic obstructive pulmonary disease, unspecified; Z86.73 Personal history of transient ischemic attack (TIA), and cerebral infarction without residual deficits; Z88.5 Allergy status to narcotic agent; Z91.018 Allergy to other foods; N18.6 End stage renal disease
CPT/HCPCS: 36415; 93005; 80053; 83605; 83690; 83735; 85025; 99284; S0119

== ENCOUNTER 2021-01-19 18:05 | Observation (INO) | payer MEDICARE ==
[2021-01-19] MEDS ORDERED: ONDANSETRON 4 MG/2 ML VIAL IVP STA (18:57)
[2021-01-19] MEDS ORDERED: SODIUM CHLORIDE 0.9% 500 ML 500 ML IV STA (18:57)
--- NOTE | 2021-01-19 19:08 | ED ---
General Adult HPI - General Source: patient Mode of arrival: ambulatory Limitations: no limitations - History of Present Illness -: hour(s) (3) Location: abdomen Severity scale (1-10): 8 Quality: stabbing, sharp Consistency: intermittent Improves with: none Worsens with: none Associated Symptoms: nausea/vomiting Treatments Prior to Arrival: none <Reji Hawkins - Last Filed: 01/20/21 00:13> <Chele Jonesah Juan - Last Filed: 01/21/21 14:22> - General Chief complaint: Abdominal Pain Stated complaint: abd pain Time Seen by Provider: 01/19/21 18:56 - History of Present Illness Initial comments: This is an 85-year-old female patient, alert and oriented 4, presents to the emergency room with right-sided abdominal pain that radiates to her left lower abdomen since 4:30 this afternoon. Patient states she has a history of diverticulitis and she believes that this is what it is. She has nausea but no vomiting or diarrhea. She denies any fevers. She states that she did have a bowel movement today. She denies any hematochezia or hematemesis. She has a history of CVA, GERD, chronic kidney disease, rheumatoid arthritis, cerebral aneurysm, diverticulitis. She has a surgical history history of appendectomy, hysterectomy. (Reji Hawkins) - Related Data Previous Rx's Medication Instructions Recorded Omeprazole 20 mg PO AC-BID #60 cap 06/30/20 Oxybutynin Chloride [Ditropan] 5 mg PO BID #60 tab 06/30/20 levETIRAcetam [Keppra] 250 mg PO BID #60 tab 06/30/20 Ondansetron Odt [Zofran ODT] 4 mg PO Q8HR PRN #12 tab 01/01/21 oxyCODONE HCL/ACETAMINOPHEN 1 tab PO Q6HR PRN 3 Days #12 tab 01/01/21 [Percocet 5-325 mg] Allergies Allergy/AdvReac Type Severity Reaction Status Date / Time gluten Allergy Unknown Verified 01/19/21 19:41 codeine AdvReac Nausea & Verified 01/19/21 19:41 Vomiting Review of Systems ROS Other: All systems not noted in ROS Statement are negative. <Reji Hawkins - Last Filed: 01/20/21 00:13> ROS Other: All systems not noted in ROS Statement are negative. <Vonda Jones - Last Filed: 01/21/21 14:22> ROS Statement: Those systems with pertinent positive or pertinent negative responses have been documented in the HPI. Past Medical History Past Medical History: Cancer, COPD, CVA/TIA, GERD/Reflux, Musculoskeletal Disorder, Neurologic Disorder, Pneumonia, Renal Disease, Rheumatoid Arthritis (RA), Skin Disorder Additional Past Medical History / Comment(s): 2016 FALL/LT HIP FX(sx). AND fx pubic ramis, RT HIP FX(no sx), celiac; cerebral anuerysm and aaa(had sx for both), lumbar radiculopathy,eczema, x3 seizures after brain sx none since, d iverticulosis, squamous cell skin ca. KIDNEY DX, PAD,"difficulty swallowing", uti-ecoli 2015, over active bladder wears a brief. ESRD History of Any Multi-Drug Resistant Organisms: None Reported Past Surgical History: Appendectomy, Hysterectomy, Orthopedic Surgery Additional Past Surgical History / Comment(s): brain aneursym with surgery and angioplasty, aaa repair also, jani cataract, skin ca removed, lt breast bx and cyst removed, d&c, colonoscopy, orif lt hip, ORIF RT HIP, EGD Past Anesthesia/Blood Transfusion Reactions: No Reported Reaction Past Psychological History: No Psychological Hx Reported Smoking Status: Never smoker Past Alcohol Use History: None Reported Past Drug Use History: None Reported - Past Family History Mother Additional Family Medical History / Comment(s): BOWEL PROBLEMS/DIVERTICULAR DIEASE. LIVED TO BE 96 YEARS OLD Father History Unknown: Yes Additional Family Medical History / Comment(s): IN HIS SLEEEP AT AGE 86 Sister(s) Family Medical History: Cancer Additional Family Medical History / Comment(s): COLON Brother(s) Family Medical History: Cancer Additional Family Medical History / Comment(s): THROAT CANCER <Reji Hawkins - Last Filed: 01/20/21 00:13> General Exam Limitations: no limitations General appearance: alert, in no apparent distress Head exam: Present: atraumatic, normocephalic, normal inspection Eye exam: Present: normal appearance, PERRL, EOMI. Absent: scleral icterus, conjunctival injection, periorbital swelling ENT exam: Present: normal exam, mucous membranes moist Neck exam: Present: full ROM Respiratory exam: Present: normal lung sounds bilaterally. Absent: respiratory distress, wheezes, rales, rhonchi, stridor Cardiovascular Exam: Present: bradycardia GI/Abdominal exam: Present: soft, tenderness (Left lower quadrant and right lower quadrant), normal bowel sounds. Absent: distended, mass Extremities exam: Absent: tenderness, pedal edema Back exam: Absent: tenderness, CVA tenderness (R), CVA tenderness (L) Neurological exam: Present: alert, oriented X3 Psychiatric exam: Present: normal affect, normal mood Skin exam: Present: warm, dry, intact, normal color. Absent: rash <Reji Hawkins - Last Filed: 01/20/21 00:13> Course Vital Signs 01/19/21 01/19/21 01/19/21 18:18 20:00 22:00 Temperature 98.7 F Pulse Rate 58 L 68 72 Pulse Rate [ Chaplaincy ] Respiratory 16 18 16 Rate Blood Pressure 142/60 145/73 118/76 Blood Pressure [Left Arm] O2 Sat by Pulse 98 95 97 Oximetry 01/20/21 01/20/21 01/20/21 02:00 06:00 07:47 Temperature 96.9 F L Pulse Rate 68 66 Pulse Rate [ 67 Chaplaincy ] Respiratory 16 16 20 Rate Blood Pressure 113/70 127/87 Blood Pressure 134/70 [Left Arm] O2 Sat by Pulse 95 95 93 L Oximetry 01/20/21 11:49 Temperature 97.6 F Pulse Rate Pulse Rate [ 65 Chaplaincy ] Respiratory 20 Rate Blood Pressure Blood Pressure 113/85 [Left Arm] O2 Sat by Pulse 94 L Oximetry EKG Findings - EKG Results: EKG: sinus rhythm (Ventricular rate 67, MA interval 0.150, QRS 0.74, QTC 0.469) <Reji Hawkins - Last Filed: 01/20/21 00:13> Medical Decision Making - Lab Data Result diagrams: 01/19/21 19:05 01/19/21 19:05 <Reji Hawkins - Last Filed: 01/20/21 00:13> - Lab Data Result diagrams: 01/19/21 19:05 01/19/21 19:05 <Vonda Jones - Last Filed: 01/21/21 14:22> - Medical Decision Making CT the abdomen shows no acute intra-abdominal or pelvic process. There is extensive diverticulosis but no evidence of diverticulitis. Stable aortic aneurysm. There is no evidence of leukocytosis. Her troponin is elevated 0.051 with no evidence of ST elevation. Patient continues to have right lower and l eft lower quadrant pain. Will be admitted to the hospital to trend her troponins. This elevation may be related to her chronic kidney disease. Patient denies any chest pain. Did speak with Dr. Wilson about the admit and he is agreeable. [facility] I was available for consultation in the emergency department. The history and physical exam were done by the midlevel provider. I was consulted for this patients care. I reviewed the case with the midlevel provider and based on their presentation of the patient, I agree with the assessment, medical decision making and plan of care as documented. Chart was dictated using [employer] dictation software. Attempts were made to correct any dictation errors however some typographical errors may persist. (Vonda Jones) - Lab Data Lab Results 01/19/21 01/19/21 01/19/21 Range/Units 19:05 19:05 19:05 WBC 7.5 (3.8-10.6) k/uL RBC 4.17 (3.80-5.40) m/uL Hgb 12.1 (11.4-16.0) gm/dL Hct 38.7 (34.0-46.0) % MCV 92.9 (80.0-100.0) fL MCH 28.9 (25.0-35.0) pg MCHC 31.2 (31.0-37.0) g/dL RDW 14.1 (11.5-15.5) % Plt Count 249 (150-450) k/uL MPV 7.2 Neutrophils % 71 % Lymphocytes % 22 % Monocytes % 5 % Eosinophils % 1 % Basophils % 0 % Neutrophils # 5.3 (1.3-7.7) k/uL Lymphocytes # 1.6 (1.0-4.8) k/uL Monocytes # 0.4 (0-1.0) k/uL Eosinophils # 0.1 (0-0.7) k/uL Basophils # 0.0 (0-0.2) k/uL PT (9.0-12.0) sec INR (<1.2) APTT (22.0-30.0) sec Sodium 138 (137-145) mmol/L Potassium 4.5 (3.5-5.1) mmol/L Chloride 107 (98-107) mmol/L Carbon Dioxide 21 L (22-30) mmol/L Anion Gap 10 mmol/L BUN 39 H (7-17) mg/dL Creatinine 2.04 H (0.52-1.04) mg/dL Est GFR (CKD-EPI)AfAm 25 (>60 ml/min/1.73 sqM) Est GFR (CKD-EPI)NonAf 22 (>60 ml/min/1.73 sqM) Glucose 108 H (74-99) mg/dL Plasma Lactic Acid Marques (0.7-2.0) mmol/L Calcium 9.4 (8.4-10.2) mg/dL Total Bilirubin 0.3 (0.2-1.3) mg/dL AST 31 (14-36) U/L ALT 10 (4-34) U/L Alkaline Phosphatase 72 (38-126) U/L Troponin I 0.051 H* (0.000-0.034) ng/mL Total Protein 8.1 (6.3-8.2) g/dL Albumin 3.9 (3.5-5.0) g/dL Amylase 113 H (30-110) U/L Lipase 214 (23-300) U/L Urine Color Urine Appearance (Clear) Urine pH (5.0-8.0) Ur Specific Sweeny (1.001-1.035) Urine Protein (Negative) Urine Glucose (UA) (Negative) Urine Ketones (Negative) Urine Blood (Negative) Urine Nitrite (Negative) Urine Bilirubin (Negative) Urine Urobilinogen (<2.0) mg/dL Ur Leukocyte Esterase (Negative) Urine RBC (0-5) /hpf Urine WBC (0-5) /hpf Ur Squamous Epith Cells (0-4) /hpf Hyaline Casts (0-2) /lpf Urine Mucus (None) /hpf 01/19/21 01/19/21 01/19/21 Range/Units 19:05 19:05 22:00 WBC (3.8-10.6) k/uL RBC (3.80-5.40) m/uL Hgb (11.4-16.0) gm/dL Hct (34.0-46.0) % MCV (80.0-100.0) fL MCH (25.0-35.0) pg MCHC (31.0-37.0) g/dL RDW (11.5-15.5) % Plt Count (150-450) k/uL MPV Neutrophils % % Lymphocytes % % Monocytes % % Eosinophils % % Basophils % % Neutrophils # (1.3-7.7) k/uL Lymphocytes # (1.0-4.8) k/uL Monocytes # (0-1.0) k/uL Eosinophils # (0-0.7) k/uL Basophils # (0-0.2) k/uL PT 10.1 (9.0-12.0) sec INR 0.9 (<1.2) APTT 20.3 L (22.0-30.0) sec Sodium (137-145) mmol/L Potassium (3.5-5.1) mmol/L Chloride (98-107) mmol/L Carbon Dioxide (22-30) mmol/L Anion Gap mmol/L BUN (7-17) mg/dL Creatinine (0.52-1.04) mg/dL Est GFR (CKD-EPI)AfAm (>60 ml/min/1.73 sqM) Est GFR (CKD-EPI)NonAf (>60 ml/min/1.73 sqM) Glucose (74-99) mg/dL Plasma Lactic Acid Marques 1.4 (0.7-2.0) mmol/L Calcium (8.4-10.2) mg/dL Total Bilirubin (0.2-1.3) mg/dL AST (14-36) U/L ALT (4-34) U/L Alkaline Phosphatase (38-126) U/L Troponin I (0.000-0.034) ng/mL Total Protein (6.3-8.2) g/dL Albumin (3.5-5.0) g/dL Amylase (30-110) U/L Lipase (23-300) U/L Urine Color Yellow Urine Appearance Clear (Clear) Urine pH 5.5 (5.0-8.0) Ur Specific Sweeny 1.015 (1.001-1.035) Urine Protein Negative (Negative) Urine Glucose (UA) Negative (Negative) Urine Ketones 1+ H (Negative) Urine Blood Negative (Negative) Urine Nitrite Negative (Negative) Urine Bilirubin Negative (Negative) Urine Urobilinogen <2.0 (<2.0) mg/dL Ur Leukocyte Esterase Small H (Negative) Urine RBC 1 (0-5) /hpf Urine WBC 6 H (0-5) /hpf Ur Squamous Epith Cells <1 (0-4) /hpf Hyaline Casts 3 H (0-2) /lpf Urine Mucus Rare H (None) /hpf Disposition Decision Date: 01/20/21 Decision Time: 23:30 <Reji Hawkins - Last Filed: 01/20/21 00:13> <Vonda Jones - Last Filed: 01/21/21 14:22> Clinical Impression: Abdominal pain, Elevated troponin Disposition: ADMITTED IP TO THIS HOSP
[2021-01-19 19:25] LABS: Albumin 3.9 g/dL (3.5-5.0); Calcium 9.4 mg/dL (8.4-10.2); Potassium 4.5 mmol/L (3.5-5.1); Total Bilirubin 0.3 mg/dL (0.2-1.3); Total Protein 8.1 g/dL (6.3-8.2)
[2021-01-19 19:29] LABS: INR 0.9 (<1.2); Prothrombin Time 10.1 sec (9.0-12.0)
[2021-01-19 19:35] LABS: Partial Thromboplastin Time 20.3 sec (22.0-30.0)
[2021-01-19 19:52] LABS: Basophils % (A) 0 %; Eosinophils # (A) 0.1 k/uL (0-0.7); Eosinophils % (A) 1 %; HCT 38.7 % (34.0-46.0); HGB 12.1 gm/dL (11.4-16.0); Lymphocytes # (A) 1.6 k/uL (1.0-4.8); Lymphocytes % (A) 22 %; MCH 28.9 pg (25.0-35.0); MCHC 31.2 g/dL (31.0-37.0); MCV 92.9 fL (80.0-100.0); Mean Platelet Volume 7.2; Monocytes # (A) 0.4 k/uL (0-1.0); Monocytes % (A) 5 %; Neutrophils # (A) 5.3 k/uL (1.3-7.7); Neutrophils % (A) 71 %; Platelet Count 249 k/uL (150-450); RBC 4.17 m/uL (3.80-5.40); RDW 14.1 % (11.5-15.5); WBC 7.5 k/uL (3.8-10.6)
[2021-01-19] MEDS ORDERED: ASPIRIN 81 MG PO STA (20:01)
--- NOTE | 2021-01-19 20:26 | CT ---
EXAMINATION TYPE: CT abdomen pelvis wo con DATE OF EXAM: 01/19/2021 COMPARISON: 10/06/2020 HISTORY: Abdominal pain. TECHNIQUE: CT scan of the CT scan of the abdomen and pelvis was performed without contrast CT DLP: 248.6 mGycm Automated exposure control for dose reduction was used. FINDINGS: Lack of IV, oral and peritoneal fat limits evaluation. Lower thorax: COPD/emphysema changes similar to prior study. Minimal bibasilar subsegmental atelectas is. No effusion. Nonenlarged heart. Atherosclerotic calcifications project in the region of the right common carotid artery. The liver is slightly nodular in contour. There is a 1 cm lesion in the left hepatic lobe stable and appearance and size compared to the prior study. The gallbladder, spleen, pancreas and right adrenal gland are unremarkable. There is 0.2 x 1.1 cm lef t adrenal nodule that is similar in intensity to the adrenal gland itself. Renal collecting system dilatation seen. There is a stable 2 mm calculus in the left kidney upper gareth e. The urinary bladder is partially distended. No intestinal obstruction seen. The appendix is not identified. There is extensive diverticulosis no definite evidence of acute diverticulitis though it appears that there is mild central mesenteric str anding which has not changed in appearance compared to the prior study. No gross free air seen. No ascites. No definite free fluid in the abdomen or pelvis. No enlarged retroperitoneal or pelvic lymph nodes seen. Uterus is not seen. Evaluation of the adnexa is somewhat suboptimal due to streak from left proximal femur hardware. There is a stable aneurysm in the lower thoracic aorta upper abdominal aorta is a partially calcified wall, the appearance of the aneurysm is not significantly changed compared to prior. No periaortic f luid collection. Atherosclerotic calcifications involve the wall of the aorta and extend into the com mon iliac arteries and distal branches. There is mild general muscular atrophy most notable in the psoas muscles. The bilateral lower extremi ty muscles are also identified. Surgical hardware is stable in the left femur. The distal part of the hardware extends outside the le ft femur cortex similar to prior study. There is generalized osteopenia. No acute osseous abnormaliti es seen. There is anterior translation of L4-5 stable since prior. There is severe narrowing at L4-5 and L5-S1 and mild to moderate narrowing the lower thoracic and upper lumbar spine. There is facet tushar int arthropathy changes. There is mild loss of L1 vertebral body heights and other to prior study. Ov erall osseous structures are not significantly changed. IMPRESSION: 1. NO DEFINITE ACUTE INTRA-ABDOMINAL OR PELVIC PROCESS, PLEASE CORRELATE FINDINGS CLINICALLY. 2. STABLE 1.2 X 1.1 CM LEFT ADRENAL NODULE INDETERMINATE ETIOLOGY. 3. SLIGHTLY NODULAR HEPATIC CONTOUR AND A 1 CM STABLE HYPOECHOIC LESION IN THE LEFT HEPATIC LOBE NO S IGNIFICANT CHANGE. 4. 2 MILLIMETER NONOBSTRUCTING LEFT RENAL CALCULUS. 5. EXTENSIVE DIVERTICULOSIS, NO DEFINITE EVIDENCE OF ACUTE DIVERTICULITIS THOUGH IT IS DIFFICULT TO E VALUATE THE ABDOMEN FOR SMALL CONTAINED PNEUMOPERITONEUM. NO ASCITES OR FREE FLUID APPRECIATED. CLINI ELLI CORRELATION FOR NONCOMPLICATED ACUTE DIVERTICULITIS RECOMMENDED TO 6. STABLE AORTIC ANEURYSM. NO PERIAORTIC FLUID COLLECTION SEEN.
[2021-01-19] MEDS ORDERED: fentaNYL (PF) 50 MCG/ML 2 ML AMP IVP STA (20:33)
[2021-01-19 22:19] LABS: Appearance,Urine Clear (Clear); Color,Urine Yellow
[2021-01-19 22:20] LABS: Bilirubin,Urine Negative (Negative); Blood,Urine Negative (Negative); Glucose,Urine (UA) Negative (Negative); Hyaline Casts,Urine 3 /lpf (0-2); Ketones,Urine 1+ (Negative); Leukocyte Esterase,Urine Small (Negative); Mucus,Urine Rare /hpf; Nitrite,Urine Negative (Negative); PH, Urine 5.5 (5.0-8.0); Protein,Urine Negative (Negative); RBC,Urine 1 /hpf (0-5); Specific Gravity,Urine 1.015 (1.001-1.035); Squamous Epithelial Cell,Urine <1 /hpf (0-4); Urobilinogen,Urine <2.0 mg/dL (<2.0); WBC,Urine 6 /hpf (0-5)
[2021-01-19] MEDS ORDERED: NALOXONE 0.4 MG/ML 1 ML VIAL IV PRN (23:39)
[2021-01-19] MEDS ORDERED: ACETAMINOPHEN TAB 325 MG TAB PO PRN (23:39)
[2021-01-19] MEDS ORDERED: NITROGLYCERIN SL TABS 0.4 MG TAB SUBLINGUAL PRN (23:42)
[2021-01-19] MEDS ORDERED: SODIUM CHLORIDE 0.9% 1,000 ML IV SCH (23:45)
[2021-01-20 07:48] VITALS: RESP 20
[2021-01-20] MEDS ORDERED: ASPIRIN 325 MG TAB PO SCH (09:00)
[2021-01-20] MEDS ORDERED: ASPIRIN 81 MG PO SCH (09:00)
--- NOTE | 2021-01-20 10:00 | P.CRDCN ---
History of Present Illness History of present illness: HISTORY OF PRESENTING ILLNESS This is a pleasant 85-year-old female past medical history significant for CVA/TIA, chronic kidney disease, GERD, COPD, cerebral aneurysm, abdominal aortic aneurysm, seizures, diverticulosis, skin cancer. 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 She did see Dr. Aguiar in 2013 for chest pain and underwent a Lexiscan stress test which was negative for reversible ischemia and an echocardiogram with Normal EF. We have been asked to see in consultation for elevated troponin Patient presents emergency department with abdominal pain. She states yesterday at 4 PM she had increased left lower quadrant abdominal pain that radiated across her abdomen to the right. She states is the worst pain she has ever felt. Her called EMS was brought to the emergency department. She denies any chest pain, shortness of breath, lightheadedness, dizziness, syncope. She endorses decreased by mouth intake due to her abdominal pain. She denies history of NM, diabetes, hypertension, coronary artery disease. She is a nonsmoker. Denies alcohol use. She states she recently followed up with her performance improvement analyst Dr. Quinones, and starting dialysis was discussed. She states she recently presented to the hospital had increased nausea and vomiting. DIAGNOSTICS EKG reveals sinus rhythm, heart rate 67, T wave inversions in leads I, aVL, V2- V4 which are new compared to prior EKGs Most recent Lexiscan stress test in 2013 was negative for reversible ischemia. Most recent echocardiogram in 2013 revealed EF of 60%, mild mitral regurgitation, mild tricuspid regurgitation. Laboratory data reviewed, CBC unremarkable, sodium 138, potassium 4.5, BUN 39, serum creatinine 2.04, liver enzymes within normal limits, troponin 0.05, 0.04, 0.04, amylase 113, lipase 214, COVID-19 PCR negative Telemetry tracings indicate in sinus mechanism Abdomen/pelvis CT revealed no definite acute intra-abdominal or pelvic process, stable left adrenal nodule, [id number] anticoagulation. 2 mm nonobstructing left renal calculus. Extensive diverticulitosis, no definitive evidence of acute diverticulitis, no ascites. Stable aortic aneurysm. REVIEW OF SYSTEMS At the time of my exam: CONSTITUTIONAL: Denies fever or chills. CARDIOVASCULAR: Denies chest pain, shortness of breath, orthopnea, PND or palpitations. RESPIRATORY: Denies cough. GASTROINTESTINAL: + abdominal pain, +nausea, +vomiting Denies diarrhea, constipation MUSCULOSKELETAL: Denies myalgias. NEUROLOGIC: Denies numbness, tingling, headacbe or weakness. ENDOCRINE: Denies fatigue, weight change, polydipsia or polyurina. GENITOURINARY: Denies burning, hematuria or urgency with micturation. HEMATOLOGIC: Denies history of anemia or bleeding. PHYSICAL EXAMINATION Blood pressure 134/70, heart rate 67, afebrile, maintaining oxygen saturations 95% on room air CONSTITUTIONAL: No apparent distress. HEENT: Head is normocephalic. Pupils are equal, round. Sclerae anicteric. Mucous membranes of the mouth are moist. No JVD. No carotid bruit. CHEST EXAMINATION: Lungs are clear to auscultation. No chest wall tenderness is noted on palpation or with deep breathing. HEART EXAMINATION: Regular rate and rhythm. S1, S2 heard. No murmurs, gallops or rub. ABDOMEN: Soft, nontender. Positive bowel sounds. +Tenderness to left lower quadrant EXTREMITIES: 2+ peripheral pulses, no lower extremity edema and no calf tenderness. SKIN: warm, dry, pale NEUROLOGIC EXAMINATION: Patient is awake, alert and oriented x3. ASSESSMENT Elevated troponin, not indicative of acute coronary syndrome Abdominal Pain Acute on chronic kidney disease Diverticulosis History of CVA/TIA History of COPD History of cerebral aneurysm Abdominal aortic aneurysm History of seizures PLAN Elevated troponin not indicative of acute coronary syndrome. Obtain 2D echocardiogram and doppler study to assess cardiac structure and function. From a cardiology perspective, recommend workup for patient's abdominal pain. Decrease aspirin 81 mg daily Thank you kindly for this consultation. Nurse Practitioner note has been reviewed, I agree with a documented findings and plan of care. Patient was seen and examined. Past Medical History Past Medical History: Cancer, COPD, CVA/TIA, GERD/Reflux, Musculoskeletal Disorder, Neurologic Disorder, Pneumonia, Renal Disease, Rheumatoid Arthritis (RA), Skin Disorder Additional Past Medical History / Comment(s): 2016 FALL/LT HIP FX(sx). 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 KIDNEY DX, PAD,"difficulty swallowing", uti-ecoli 2016, over active bladder wears a brief. ESRD History of Any Multi-Drug Resistant Organisms: None Reported Past Surgical History: Appendectomy, Hysterectomy, Orthopedic Surgery Additional Past Surgical History / Comment(s): brain aneursym with surgery and angioplasty, aaa repair also, jani cataract, skin ca removed, lt breast bx and cyst removed, d&c, colonoscopy, orif lt hip, ORIF RT HIP, EGD Past Anesthesia/Blood Transfusion Reactions: No Reported Reaction Past Psychological History: No Psychological Hx Reported Smoking Status: Never smoker Past Alcohol Use History: None Reported Past Drug Use History: None Reported - Past Family History Mother Additional Family Medical History / Comment(s): BOWEL PROBLEMS/DIVERTICULAR DIEASE. LIVED TO BE 96 YEARS OLD Father History Unknown: Yes Additional Family Medical History / Comment(s): IN HIS SLEEEP AT AGE 86 Sister(s) Family Medical History: Cancer Additional Family Medical History / Comment(s): COLON Brother(s) Family Medical History: Cancer Additional Family Medical History / Comment(s): THROAT CANCER Medications and Allergies Home Medications Medication Instructions Recorded Confirmed Type Omeprazole 20 mg PO AC-BID #60 cap 06/30/20 01/19/21 Rx Oxybutynin Chloride [Ditropan] 5 mg PO BID #60 tab 06/30/20 01/19/21 Rx levETIRAcetam [Keppra] 250 mg PO BID #60 tab 06/30/20 01/19/21 Rx Ondansetron Odt [Zofran Odt] 4 mg PO Q8HR PRN #12 tab 01/01/21 01/19/21 Rx oxyCODONE HCL/ACETAMINOPHEN 1 tab PO Q6HR PRN 3 Days #12 tab 01/01/21 01/19/21 Rx [Percocet 5-325 mg] Allergies Allergy/AdvReac Type Severity Reaction Status Date / Time gluten Allergy Unknown Verified 01/19/21 19:41 codeine AdvReac Nausea & Verified 01/19/21 19:41 Vomiting Physical Exam Vitals: Vital Signs Temp Pulse Pulse Resp BP BP Pulse Ox 01/20/21 07:47 96.9 F L 67 20 134/70 93 L 01/20/21 06:00 66 16 127/87 95 01/20/21 02:00 68 16 113/70 95 01/19/21 22:00 72 16 118/76 97 01/19/21 20:00 68 18 145/73 95 01/19/21 18:18 98.7 F 58 L 16 142/60 98 Intake and Output 01/19/21 01/20/21 01/20/21 22:59 06:59 14:59 Output Total 300 Balance -300 Output: Urine 300 Other: Weight 40.37 kg Results 01/19/21 19:05 01/19/21 19:05 Cardiac Enzymes 01/19/21 01/19/21 01/20/21 Range/Units 19:05 19:05 00:19 AST 31 (14-36) U/L Troponin I 0.051 H* 0.048 H* (0.000-0.034) ng/mL 01/20/21 Range/Units 02:11 AST (14-36) U/L Troponin I 0.040 H* (0.000-0.034) ng/mL Coagulation 01/19/21 Range/Units 19:05 PT 10.1 (9.0-12.0) sec APTT 20.3 L (22.0-30.0) sec CBC 01/19/21 Range/Units 19:05 WBC 7.5 (3.8-10.6) k/uL RBC 4.17 (3.80-5.40) m/uL Hgb 12.1 (11.4-16.0) gm/dL Hct 38.7 (34.0-46.0) % Plt Count 249 (150-450) k/uL Comprehensive Metabolic Panel 01/19/21 Range/Units 19:05 Sodium 138 (137-145) mmol/L Potassium 4.5 (3.5-5.1) mmol/L Chloride 107 (98-107) mmol/L Carbon Dioxide 21 L (22-30) mmol/L BUN 39 H (7-17) mg/dL Creatinine 2.04 H (0.52-1.04) mg/dL Glucose 108 H (74-99) mg/dL Calcium 9.4 (8.4-10.2) mg/dL AST 31 (14-36) U/L ALT 10 (4-34) U/L Alkaline Phosphatase 72 (38-126) U/L Total Protein 8.1 (6.3-8.2) g/dL Albumin 3.9 (3.5-5.0) g/dL Current Medications Generic Name Dose Route Start Last Admin Trade Name Freq PRN Reason Stop Dose Admin Acetaminophen 650 mg 01/19/21 23:39 Acetaminophen Tab 325 Mg Tab PO Q6HR PRN Mild Pain or Fever > 100.5 Aspirin 81 mg 01/20/21 09:00 01/20/21 08:43 Aspirin 81 Mg PO Not Given DAILY MARÍA Sodium Chloride 1,000 mls @ 75 mls/hr 01/19/21 23:45 01/20/21 00:00 Saline 0.9% IV 75 mls/hr .[id number] MARÍA Administration Naloxone HCl 0.2 mg 01/19/21 23:39 Naloxone 0.4 Mg/Ml 1 Ml Vial IV Q2M PRN Opioid Reversal Nitroglycerin 0.4 mg 01/19/21 23:42 Nitroglycerin Sl Tabs 0.4 Mg Tab SUBLINGUAL Q5M PRN Chest Pain Intake and Output 01/19/21 01/20/21 01/20/21 22:59 06:59 14:59 Output Total 300 Balance -300 Output: Urine 300 Other: Weight 40.37 kg 01/19/21 19:05 01/19/21 19:05
[2021-01-20 10:40] LABS: Chol/HDL Ratio 3.51 Ratio; HDL Cholesterol 54.7 mg/dL (40.00-60.00); LDL Cholesterol,Calculated 120.6 mg/dL (0.0-131.0); Triglycerides 83.6 mg/dL (0.00-149.00); VLDL Calculation 16.72 mg/dL (5.00-40.00)
[2021-01-20] MEDS ORDERED: oxyCODONE-APAP 5-325MG 1 EACH TAB PO PRN (10:42)
[2021-01-20] MEDS ORDERED: ONDANSETRON ODT 4 MG TAB PO PRN (10:42)
[2021-01-20] MEDS ORDERED: levETIRAcetam 250 MG TAB PO SCH (10:45)
[2021-01-20] MEDS ORDERED: OXYBUTYNIN CHLORIDE 5 MG TAB PO SCH (10:45)
[2021-01-20] MEDS ORDERED: PANTOPRAZOLE 40 MG TABLET PO SCH (10:45)
[2021-01-20 11:49] VITALS: BP 113/85; PULSE 65; TEMP 97.6
--- NOTE | 2021-01-20 12:58 | ECHOF ---
Referral Reason:LV function MEASUREMENTS -------- HEIGHT: 152.4 cm WEIGHT: 40.4 kg BP: IVSd: 0.9 cm (0.6 - 1.1) LVIDd: 2.7 cm (3.9 - 5.3) LVPWd: 1.3 cm (0.6 - 1.1) EDV(Teich): 27 ml IVSs: 1.8 cm LVIDs: 0.7 cm LVPWs: 1.1 cm %IVS Thck: 93 % ESV(Teich): 1 ml EF(Teich): 97 % %FS: 75 % SV(Teich): 26 ml IVC: 15.69 mm Ao Diam: 2.9 cm (2.0 - 3.7) LA Diam: 2.5 cm (2.7 - 3.8) AV Cusp: 2.0 cm (1.5 - 2.6) EPSS: 0.6 cm MV E Hitesh: 0.43 m/s MV DecT: 235 ms MV Dec Pickens: 1.8 m/s MV A Hitesh: 0.68 m/s MV E/A Ratio: 0.64 MV PHT: 68 ms MR Vmax: 1.97 m/s MR maxP.59 mmHg AV Vmax: 0.94 m/s AV maxP.53 mmHg AR Vmax: 1.58 m/s AR maxP.99 mmHg AR PHT: 288 ms AR Dec Time: 994 ms AR Dec Pickens: 1.6 m/s TR Vmax: 1.89 m/s TR maxP.26 mmHg RAP: 5.00 mmHg RVSP: 19.26 mmHg MV EF SLOPE: 35.90 mm/s (70 - 150) MV EXCURSION: 9.41 mm (> 18.000) FINDINGS -------- This was a technically good study. The left ventricular size is normal. Left ventricular wall thickness is normal. Overall left vent ricular systolic function is normal with, an EF between 55 - 60 %. The right ventricle is normal in size. The left atrial size is normal. The right atrial size is normal. The aortic valve is trileaflet and appears structurally normal. The mitral valve is normal. Mild mitral regurgitation is present. The tricuspid valve appears structurally normal. Mild tricuspid regurgitation present. Right vent ricular systolic pressure is normal at < 35 mmHg. There is no pulmonic regurgitation present. The aortic root size is normal. Normal inferior vena cava with normal inspiratory collapse consistent with estimated right atrial pre ssure of 5 mmHg. There is a trivial pericardial effusion present. CONCLUSIONS -------- 1. The left ventricular size is normal. 2. Left ventricular wall thickness is normal. 3. Overall left ventricular systolic function is normal with, an EF between 55 - 60 %. 4. Mild mitral regurgitation is present. 5. Mild tricuspid regurgitation present. 6. There is a trivial pericardial effusion present. DRIVE MAN: Jenny Joiner RDCS
--- NOTE | 2021-01-20 20:28 | P.HPIM ---
History of Present Illness H&P Date: 01/20/21 Chief Complaint: Lower abdominal pain History of presenting complaint: This is a 85-year-old patient of Dr. Johnson. Chronic stable medical conditions include COPD, GERD, rheumatoid arthritis, celiac disease, chronic urinary incontinence, lumbar radiculopathy , diverticulosis. Patient does use a walker. Yesterday evening patient got out to eat. She felt that the chicken dinner was very hard and the chicken was not easy to chew. In the evening patient developed severe left lower quadrant pain. Also did Cordarone to the right. She also vomited. [place] a bit warm. Slight chills. But no actual fever. Had a bowel movement yesterday. This afternoon patient is feels back to normal self. No abdominal pain. Comfortable. 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 . Does use a walker to get about . Family history: Throat cancer Physical examination: VITAL SIGNS: 97.9, 65, 20, 130/85, 94% room air GENERAL: BMI 17.4, reclining in bed, awake, comfortable EYES: Pupils equal. Conjunctiva normal. HEENT: External appearance of nose and ears normal, oral cavity grossly normal. NECK: JVD not raised; masses not palpable. HEART: First and second heart sounds are normal; no edema. LUNGS: Respiratory rate normal; clear to auscultation. ABDOMEN: Soft, nontender, liver spleen not palpable, no masses palpable. PSYCH: Alert and oriented x3; mood and affect normal. NEUROLOGICAL: Cranial nerves grossly intact; no facial asymmetry, power and sensation grossly intact. LYMPHATICS: No lymph nodes palpable in the axilla and neck MUSCULOSKELETAL: Evidence of arthritis especially in the hands, brace on the right leg Investigations: WBC 7.5 hemoglobin 12.1 platelets 249 sodium 138 potassium 4.5 BUN 39 creatinine 2.04 Troponin I 0.051, 0.048, 0.040 LDL 120 amylase 113 lipase 214 EKG tracing personally reviewed by me-normal sinus rhythm. T-wave abnormality. Computed tomography scan of the abdomen: Left intergluteal dual stable. Nonobstructing left renal calculus. Extensive diverticulosis. No evidence of diverticulitis. Stable aortic aneurysm. Evidence of DJD. Assessment and plan: -Patient presented with severe left lower quadrant pain started yesterday evening. The chicken she was sent off at the restaurant meal was very hard. Patient has no fever no white count. No diarrhea. Symptoms have resolved. Most likely this is acute bowel spasm. Self-limiting. -COPD, in a previous smoker Albuterol when necessary -GERD Omeprazole 20 mg twice a day -Rheumatoid arthritis Pain control -Chronic celiac disease Gluten-free diet -Overactive bladder causing incontinence uses a brief - Colonic diverticulosis, asymptomatic Follow clinically Care was discussed with the patient. Home medications resumed. What the patient for a short time. If continues to do well she could be discharged. Past Medical History Past Medical History: Cancer, COPD, CVA/TIA, GERD/Reflux, Musculoskeletal Disorder, Neurologic Disorder, Pneumonia, Renal Disease, Rheumatoid Arthritis (RA), Skin Disorder Additional Past Medical History / Comment(s): 2016 FALL/LT HIP FX(sx). 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 KIDNEY DX, PAD,"difficulty swallowing", uti-ecoli 2016, over active bladder wears a brief. ESRD History of Any Multi-Drug Resistant Organisms: None Reported Past Surgical History: Appendectomy, Hysterectomy, Orthopedic Surgery Additional Past Surgical History / Comment(s): brain aneursym with surgery and angioplasty, aaa repair also, jani cataract, skin ca removed, lt breast bx and cyst removed, d&c, colonoscopy, orif lt hip, ORIF RT HIP, EGD Past Anesthesia/Blood Transfusion Reactions: No Reported Reaction Smoking Status: Never smoker - Past Family History Mother Additional Family Medical History / Comment(s): BOWEL PROBLEMS/DIVERTICULAR DIEASE. LIVED TO BE 96 YEARS OLD Father History Unknown: Yes Additional Family Medical History / Comment(s): IN HIS SLEEEP AT AGE 86 Sister(s) Family Medical History: Cancer Additional Family Medical History / Comment(s): COLON Brother(s) Family Medical History: Cancer Additional Family Medical History / Comment(s): THROAT CANCER Medications and Allergies Home Medications Medication Instructions Recorded Confirmed Type Omeprazole 20 mg PO AC-BID #60 cap 06/30/20 01/19/21 Rx Oxybutynin Chloride [Ditropan] 5 mg PO BID #60 tab 06/30/20 01/19/21 Rx levETIRAcetam [Keppra] 250 mg PO BID #60 tab 06/30/20 01/19/21 Rx Ondansetron Odt [Zofran ODT] 4 mg PO Q8HR PRN #12 tab 01/01/21 01/19/21 Rx oxyCODONE HCL/ACETAMINOPHEN 1 tab PO Q6HR PRN 3 Days #12 tab 01/01/21 01/19/21 Rx [Percocet 5-325 mg] Allergies Allergy/AdvReac Type Severity Reaction Status Date / Time gluten Allergy Unknown Verified 01/19/21 19:41 codeine AdvReac Nausea & Verified 01/19/21 19:41 Vomiting Physical Exam Vitals: Vital Signs Temp Pulse Pulse Resp BP BP Pulse Ox 01/20/21 11:49 97.6 F 65 20 113/85 94 L 01/20/21 07:47 96.9 F L 67 20 134/70 93 L 01/20/21 06:00 66 16 127/87 95 01/20/21 02:00 68 16 113/70 95 01/19/21 22:00 72 16 118/76 97 Intake and Output 01/20/21 01/20/21 01/20/21 06:59 14:59 22:59 Intake Total 340 Output Total 300 Balance 40 Intake: Oral 340 Output: Urine 300 Other: Weight 40.37 kg Results CBC & Chem 7: 01/19/21 19:05 01/19/21 19:05 Labs: Abnormal Lab Results - Last 24 Hours (Table) 01/19/21 01/20/21 01/20/21 Range/Units 22:00 00:19 02:11 Troponin I 0.048 H* 0.040 H* (0.000-0.034) ng/mL Urine Ketones 1+ H (Negative) Ur Leukocyte Esterase Small H (Negative) Urine WBC 6 H (0-5) /hpf Hyaline Casts 3 H (0-2) /lpf Urine Mucus Rare H (None) /hpf Thrombosis Risk Factor Assmnt - Choose All That Apply Each Risk Factor Represents 3 Points: Age 75 years or older Thrombosis Risk Factor Assessment Total Risk Factor Score: 3 Thrombosis Risk Factor Assessment Level: Moderate Risk
--- NOTE | 2021-01-20 20:29 | P.DS ---
Providers Date of admission: 01/19/21 23:02 Expected date of discharge: 01/20/21 Attending physician: Dileep Wilson Consults: 01/19/21 23:41 Consult Physician Routine Consulting Provider: Darshan Lloyd Consult Reason/Comments: elevated trop Do you want consulting provider notified?: Yes Primary care physician: Justyn [facility] Course: Chief Complaint: Lower abdominal pain History of presenting complaint: This is a 85-year-old patient of Dr. Johnson. Chronic stable medical conditions include COPD, GERD, rheumatoid arthritis, celiac disease, chronic urinary incontinence, lumbar radiculopathy , diverticulosis. Patient does use a walker. Yesterday evening patient got out to eat. She felt that the chicken dinner was very hard and the chicken was not easy to chew. In the evening patient developed severe left lower quadrant pain. Also did Cordarone to the right. She also vomited. [place] a bit warm. Slight chills. But no actual fever. Had a bowel movement yesterday. This afternoon patient is feels back to normal self. No abdominal pain. Comfortable. Patient is felt of acute bowel spasm. Had no fever no white count. No diar maggie. Doing much better today. Care was discussed the patient. Advised to eat a more healthy diet. 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 . Does use a walker to get about . Family history: Throat cancer Physical examination: VITAL SIGNS: 97.9, 65, 20, 130/85, 94% room air GENERAL: BMI 17.4, reclining in bed, awake, comfortable EYES: Pupils equal. Conjunctiva normal. HEENT: External appearance of nose and ears normal, oral cavity grossly normal. NECK: JVD not raised; masses not palpable. HEART: First and second heart sounds are normal; no edema. LUNGS: Respiratory rate normal; clear to auscultation. ABDOMEN: Soft, nontender, liver spleen not palpable, no masses palpable. PSYCH: Alert and oriented x3; mood and affect normal. NEUROLOGICAL: Cranial nerves grossly intact; no facial asymmetry, power and sensation grossly intact. LYMPHATICS: No lymph nodes palpable in the axilla and neck MUSCULOSKELETAL: Evidence of arthritis especially in the hands, brace on the right leg Investigations: WBC 7.5 hemoglobin 12.1 platelets 249 sodium 138 potassium 4.5 BUN 39 creatinine 2.04 Troponin I 0.051, 0.048, 0.040 LDL 120 amylase 113 lipase 214 EKG tracing personally reviewed by me-normal sinus rhythm. T-wave abnormality. Computed tomography scan of the abdomen: Left intergluteal dual stable. Nonobstructing left renal calculus. Extensive diverticulosis. No evidence of diverticulitis. Stable aortic aneurysm. Evidence of DJD. Assessment and plan: -Patient presented with severe left lower quadrant pain started yesterday evening. The chicken she was sent off at the restaurant meal was very hard. Patient has no fever no white count. No diarrhea. Symptoms have resolved. Most likely this is acute bowel spasm. Self-limiting. -COPD, in a previous smoker Albuterol when necessary -GERD Omeprazole 20 mg twice a day -Rheumatoid arthritis Pain control -Chronic celiac disease Gluten-free diet -Overactive bladder causing incontinence uses a brief - Colonic diverticulosis, asymptomatic Follow clinically Disposition: Home Plan - Discharge Summary Discharge Rx Participant: No New Discharge Prescriptions: Continue Oxybutynin Chloride [Ditropan] 5 mg PO BID #60 tab Omeprazole 20 mg PO AC-BID #60 cap oxyCODONE HCL/ACETAMINOPHEN [Percocet 5-325 mg] 1 tab PO Q6HR PRN 3 Days #12 tab PRN Reason: Pain levETIRAcetam [Keppra] 250 mg PO BID #60 tab Ondansetron Odt [Zofran ODT] 4 mg PO Q8HR PRN #12 tab PRN Reason: Nausea Discharge Medication List Omeprazole 20 mg PO AC-BID #60 cap 06/30/20 [Rx] Oxybutynin Chloride [Ditropan] 5 mg PO BID #60 tab 06/30/20 [Rx] levETIRAcetam [Keppra] 250 mg PO BID #60 tab 06/30/20 [Rx] Ondansetron Odt [Zofran ODT] 4 mg PO Q8HR PRN #12 tab 01/01/21 [Rx] oxyCODONE HCL/ACETAMINOPHEN [Percocet 5-325 mg] 1 tab PO Q6HR PRN 3 Days #12 tab 01/01/21 [Rx] Follow up Appointment(s)/Referral(s): Justyn Johnson DO [Primary Care Provider] - 01/25/21 3:20 pm
== END 2021-01-20 16:05 ==
LOC: EC 18:05 → 3SCARD 23:02
PROVIDERS: ADMIT Hospitalist; ATTEND Hospitalist
DX: R10.32 Left lower quadrant pain (principal); J44.9 Chronic obstructive pulmonary disease, unspecified; K21.9 Gastro-esophageal reflux disease without esophagitis; M06.9 Rheumatoid arthritis, unspecified; K90.0 Celiac disease; N32.81 Overactive bladder; R32 Unspecified urinary incontinence; K57.30 Diverticulosis of large intestine without perforation or abscess without bleeding; Z20.822 Contact with and (suspected) exposure to COVID-19; N18.6 End stage renal disease; N20.0 Calculus of kidney; I67.1 Cerebral aneurysm, nonruptured; I71.4 Abdominal aortic aneurysm, without rupture; M54.16 Radiculopathy, lumbar region; N28.9 Disorder of kidney and ureter, unspecified; L30.9 Dermatitis, unspecified; Z79.899 Other long term (current) drug therapy; Z88.5 Allergy status to narcotic agent; Z90.49 Acquired absence of other specified parts of digestive tract; Z87.891 Personal history of nicotine dependence; Z85.828 Personal history of other malignant neoplasm of skin; Z86.73 Personal history of transient ischemic attack (TIA), and cerebral infarction without residual deficits; Z87.01 Personal history of pneumonia (recurrent); Z90.710 Acquired absence of both cervix and uterus; Z87.440 Personal history of urinary (tract) infections; Z98.41 Cataract extraction status, right eye; Z98.42 Cataract extraction status, left eye; Z96.1 Presence of intraocular lens; Z96.641 Presence of right artificial hip joint; Z87.81 Personal history of (healed) traumatic fracture; Z80.1 Family history of malignant neoplasm of trachea, bronchus and lung; Z80.0 Family history of malignant neoplasm of digestive organs
CPT/HCPCS: 99285; 96361 ×3; 96374; 36415; 93005 ×2; 93306; 80061; 80053; 82150; 83605; 83690; 84484 ×2; 85025; 85610; 85730; 81001; 87635; 74176; G0378 ×2; J3010

== ENCOUNTER 2021-07-10 11:18 | Emergency (ER) | payer MEDICARE ==
[2021-07-10 12:02] LABS: Basophils % (A) 1 %; Eosinophils # (A) 0.1 k/uL (0-0.7); Eosinophils % (A) 2 %; HCT 41.2 % (34.0-46.0); HGB 13.1 gm/dL (11.4-16.0); Lymphocytes # (A) 1.1 k/uL (1.0-4.8); Lymphocytes % (A) 24 %; MCH 29.3 pg (25.0-35.0); MCHC 31.7 g/dL (31.0-37.0); MCV 92.3 fL (80.0-100.0); Mean Platelet Volume 6.6; Monocytes # (A) 0.3 k/uL (0-1.0); Monocytes % (A) 6 %; Neutrophils # (A) 2.9 k/uL (1.3-7.7); Neutrophils % (A) 65 %; Platelet Count 254 k/uL (150-450); RBC 4.47 m/uL (3.80-5.40); RDW 13.6 % (11.5-15.5); WBC 4.5 k/uL (3.8-10.6)
[2021-07-10 12:10] LABS: Calcium 9.6 mg/dL (8.4-10.2); Potassium 4.8 mmol/L (3.5-5.1)
--- NOTE | 2021-07-10 12:20 | ED ---
General Adult HPI - General Chief complaint: Urogenital Stated complaint: poss UTI Time Seen by Provider: 07/10/21 11:20 Source: patient Mode of arrival: wheelchair Limitations: no limitations - History of Present Illness Initial comments: Patient is an 85-year-old female with history of dementia presenting with chief complaint of "I think I have a UTI". History of dementia. Patient's is at bedside and states that she was more confused than usual this morning. Patient states that she has been having increased urinary urgency and frequency today. Admits to pelvic pressure with urination. Patient states that she fell 2 days ago and does not remember hitting her head. She denies any fever, chills, nausea, vomiting, chest pain, shortness of breath, upper abdominal pain, flank pain, dysuria, hematuria, diarrhea, constipation. - Related Data Previous Rx's Medication Instructions Recorded Omeprazole 20 mg PO AC-BID #60 cap 06/30/20 Oxybutynin Chloride [Ditropan] 5 mg PO BID #60 tab 06/30/20 levETIRAcetam [Keppra] 250 mg PO BID #60 tab 06/30/20 Ondansetron Odt [Zofran ODT] 4 mg PO Q8HR PRN #12 tab 01/01/21 oxyCODONE HCL/ACETAMINOPHEN 1 tab PO Q6HR PRN 3 Days #12 tab 01/01/21 [Percocet 5-325 mg] Allergies Allergy/AdvReac Type Severity Reaction Status Date / Time gluten Allergy Unknown Verified 07/10/21 11:26 codeine AdvReac Nausea & Verified 07/10/21 11:26 Vomiting Review of Systems ROS Statement: Those systems with pertinent positive or pertinent negative responses have been documented in the HPI. ROS Other: All systems not noted in ROS Statement are negative. Past Medical History Past Medical History: Cancer, COPD, CVA/TIA, GERD/Reflux, Musculoskeletal Disorder, Neurologic Disorder, Pneumonia, Renal Disease, Rheumatoid Arthritis (RA), Skin Disorder Additional Past Medical History / Comment(s): 2016 FALL/LT HIP FX(sx). 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 KIDNEY DX, PAD,"difficulty swallowing", uti- ecoli 2016, over active bladder wears a brief. ESRD History of Any Multi-Drug Resistant Organisms: None Reported Past Surgical History: Appendectomy, Hysterectomy, Orthopedic Surgery Additional Past Surgical History / Comment(s): brain aneursym with surgery and angioplasty, aaa repair also, jani cataract, skin ca removed, lt breast bx and cyst removed, d&c, colonoscopy, orif lt hip, ORIF RT HIP, EGD Past Anesthesia/Blood Transfusion Reactions: No Reported Reaction Past Psychological History: No Psychological Hx Reported Smoking Status: Never smoker Past Alcohol Use History: None Reported Past Drug Use History: None Reported - Past Family History Mother Additional Family Medical History / Comment(s): BOWEL PROBLEMS/DIVERTICULAR DIEASE. LIVED TO BE 96 YEARS OLD Father History Unknown: Yes Additional Family Medical History / Comment(s): IN HIS SLEEEP AT AGE 86 Sister(s) Family Medical History: Cancer Additional Family Medical History / Comment(s): COLON Brother(s) Family Medical History: Cancer Additional Family Medical History / Comment(s): THROAT CANCER General Exam Limitations: no limitations General appearance: alert, in no apparent distress Head exam: Present: atraumatic, normocephalic, normal inspection Eye exam: Present: normal appearance, PERRL, EOMI. Absent: scleral icterus, conjunctival injection, periorbital swelling Neck exam: Present: normal inspection Respiratory exam: Present: normal lung sounds bilaterally. Absent: respiratory distress, wheezes, rales, rhonchi, stridor Cardiovascular Exam: Present: regular rate, normal rhythm, normal heart sounds. Absent: systolic murmur, diastolic murmur, rubs, gallop, clicks GI/Abdominal exam: Present: soft, tenderness (Mild tenderness over her bladder), normal bowel sounds. Absent: distended, guarding, rebound, rigid Back exam: Present: normal inspection. Absent: CVA tenderness (R), CVA tenderness (L) Neurological exam: Present: alert, oriented X3, CN II-XII intact Psychiatric exam: Present: normal affect, normal mood Skin exam: Present: warm, dry, intact, normal color. Absent: rash Course Vital Signs 07/10/21 07/10/21 07/10/21 11:22 13:59 16:53 Temperature 97.5 F L 97.8 F 97.8 F Pulse Rate 89 76 81 Respiratory 18 12 16 Rate Blood Pressure 182/102 161/82 156/78 O2 Sat by Pulse 97 95 97 Oximetry EKG Findings - EKG Comments: EKG Findings:: Sinus rhythm. Rate of 79. TX interval 178. QTC 407. Findings consistent with previous EKG. This EKG was also shown to and interpreted by my attending Dr. Walters - EKG Results: EKG: interpreted by [facility] Medical Decision Making - Medical Decision Making Patient is a 85-year-old female with dementia presenting with chief complaint of confusion. Her states that this morning she was much more confused than usual, however now her symptoms appear to be about 80% resolved. She admits to increased urgency and frequency and some pelvic pressure when urinating. She states that she fell 2 days ago but does not remember hitting her head. On exam there is mild tenderness over the bladder, otherwise unremarkable. UA is positive for trace protein. Creatinine is elevated at 1.86 and BUN is 35, this is consistent with her baseline. CT of brain and cervical spine without contrast shows no intracranial acute process or fracture of the cervical spine. Chest x-ray is negative. I explained to the patient and her that this confusion was likely due to the dementia. I encouraged him to follow up with primary care this week. I educated them on return parameters and answered all questions. Her feels comfortable taking her home at this time. They conveyed verbal understanding and agreed to the plan. I discussed this case with my attending Dr. Walters. - Lab Data Result diagrams: 07/10/21 11:56 07/10/21 11:56 Lab Results 07/10/21 07/10/21 07/10/21 Range/Units 11:56 11:56 12:16 WBC 4.5 (3.8-10.6) k/uL RBC 4.47 (3.80-5.40) m/uL Hgb 13.1 (11.4-16.0) gm/dL Hct 41.2 (34.0-46.0) % MCV 92.3 (80.0-100.0) fL MCH 29.3 (25.0-35.0) pg MCHC 31.7 (31.0-37.0) g/dL RDW 13.6 (11.5-15.5) % Plt Count 254 (150-450) k/uL MPV 6.6 Neutrophils % 65 % Lymphocytes % 24 % Monocytes % 6 % Eosinophils % 2 % Basophils % 1 % Neutrophils # 2.9 (1.3-7.7) k/uL Lymphocytes # 1.1 (1.0-4.8) k/uL Monocytes # 0.3 (0-1.0) k/uL Eosinophils # 0.1 (0-0.7) k/uL Basophils # 0.0 (0-0.2) k/uL PT (9.0-12.0) sec INR (<1.2) APTT (22.0-30.0) sec Sodium 140 (137-145) mmol/L Potassium 4.8 (3.5-5.1) mmol/L Chloride 106 (98-107) mmol/L Carbon Dioxide 24 (22-30) mmol/L Anion Gap 10 mmol/L BUN 35 H (7-17) mg/dL Creatinine 1.86 H (0.52-1.04) mg/dL Est GFR (CKD-EPI)AfAm 28 (>60 ml/min/1.73 sqM) Est GFR (CKD-EPI)NonAf 24 (>60 ml/min/1.73 sqM) Glucose 97 (74-99) mg/dL POC Glucose (mg/dL) (75-99) mg/dL POC Glu Senior Research Project Manager ID Plasma Lactic Acid [place] (0.7-2.0) mmol/L Calcium 9.6 (8.4-10.2) mg/dL Ammonia (<30) umol/L Troponin I (0.000-0.034) ng/mL Urine Color Light Yellow Urine Appearance Clear (Clear) Urine pH 6.5 (5.0-8.0) Ur Specific [place] 1.012 (1.001-1.035) Urine Protein Trace H (Negative) Urine Glucose (UA) Negative (Negative) Urine Ketones Negative (Negative) Urine Blood Negative (Negative) Urine Nitrite Negative (Negative) Urine Bilirubin Negative (Negative) Urine Urobilinogen <2.0 (<2.0) mg/dL Ur Leukocyte Esterase Negative (Negative) 07/10/21 07/10/21 07/10/21 Range/Units 13:10 13:10 13:10 WBC (3.8-10.6) k/uL RBC (3.80-5.40) m/uL Hgb (11.4-16.0) gm/dL Hct (34.0-46.0) % MCV (80.0-100.0) fL MCH (25.0-35.0) pg MCHC (31.0-37.0) g/dL RDW (11.5-15.5) % Plt Count (150-450) k/uL MPV Neutrophils % % Lymphocytes % % Monocytes % % Eosinophils % % Basophils % % Neutrophils # (1.3-7.7) k/uL Lymphocytes # (1.0-4.8) k/uL Monocytes # (0-1.0) k/uL Eosinophils # (0-0.7) k/uL Basophils # (0-0.2) k/uL PT 9.8 (9.0-12.0) sec INR 0.9 (<1.2) APTT 23.1 (22.0-30.0) sec Sodium (137-145) mmol/L Potassium (3.5-5.1) mmol/L Chloride (98-107) mmol/L Carbon Dioxide (22-30) mmol/L Anion Gap mmol/L BUN (7-17) mg/dL Creatinine (0.52-1.04) mg/dL Est GFR (CKD-EPI)AfAm (>60 ml/min/1.73 sqM) Est GFR (CKD-EPI)NonAf (>60 ml/min/1.73 sqM) Glucose (74-99) mg/dL POC Glucose (mg/dL) (75-99) mg/dL POC Glu Senior Research Project Manager ID Plasma Lactic Acid [place] 0.7 (0.7-2.0) mmol/L Calcium (8.4-10.2) mg/dL Ammonia <9 (<30) umol/L Troponin I <0.012 (0.000-0.034) ng/mL Urine Color Urine Appearance (Clear) Urine pH (5.0-8.0) Ur Specific [place] (1.001-1.035) Urine Protein (Negative) Urine Glucose (UA) (Negative) Urine Ketones (Negative) Urine Blood (Negative) Urine Nitrite (Negative) Urine Bilirubin (Negative) Urine Urobilinogen (<2.0) mg/dL Ur Leukocyte Esterase (Negative) 07/10/21 Range/Units 14:03 WBC (3.8-10.6) k/uL RBC (3.80-5.40) m/uL Hgb (11.4-16.0) gm/dL Hct (34.0-46.0) % MCV (80.0-100.0) fL MCH (25.0-35.0) pg MCHC (31.0-37.0) g/dL RDW (11.5-15.5) % Plt Count (150-450) k/uL MPV Neutrophils % % Lymphocytes % % Monocytes % % Eosinophils % % Basophils % % Neutrophils # (1.3-7.7) k/uL Lymphocytes # (1.0-4.8) k/uL Monocytes # (0-1.0) k/uL Eosinophils # (0-0.7) k/uL Basophils # (0-0.2) k/uL PT (9.0-12.0) sec INR (<1.2) APTT (22.0-30.0) sec Sodium (137-145) mmol/L Potassium (3.5-5.1) mmol/L Chloride (98-107) mmol/L Carbon Dioxide (22-30) mmol/L Anion Gap mmol/L BUN (7-17) mg/dL Creatinine (0.52-1.04) mg/dL Est GFR (CKD-EPI)AfAm (>60 ml/min/1.73 sqM) Est GFR (CKD-EPI)NonAf (>60 ml/min/1.73 sqM) Glucose (74-99) mg/dL POC Glucose (mg/dL) 84 (75-99) mg/dL POC Glu Senior Research Project Manager ID Lesly Lawton Plasma Lactic Acid [place] (0.7-2.0) mmol/L Calcium (8.4-10.2) mg/dL Ammonia (<30) umol/L Troponin I (0.000-0.034) ng/mL Urine Color Urine Appearance (Clear) Urine pH (5.0-8.0) Ur Specific [place] (1.001-1.035) Urine Protein (Negative) Urine Glucose (UA) (Negative) Urine Ketones (Negative) Urine Blood (Negative) Urine Nitrite (Negative) Urine Bilirubin (Negative) Urine Urobilinogen (<2.0) mg/dL Ur Leukocyte Esterase (Negative) - Radiology Data Radiology results: report reviewed, image reviewed Chest x-ray: No acute cardiopulmonary process CT of brain and cervical spine without contrast: Cervical spondylitic changes. No fracture. No change compared to old exam. Multilevel neural foraminal impingement. Cerebral atrophy and chronic small vessel ischemia. Previous surgery. No acute intracranial abnormality. No change compared to old exam. Disposition Clinical Impression: Dehydration, Dementia Disposition: HOME SELF-CARE Condition: Good Instructions (If sedation given, give patient instructions): Dehydration (DC), Dementia (ED) Additional Instructions: Follow-up with your primary care provider this week. Report back to ER with any worsening symptoms, including but not limited to chest pain, shortness of breath, weakness, increased confusion, difficulty speaking or slurring words. Is patient prescribed a controlled substance at d/c from ED?: No Referrals: Justyn Johnson DO [Primary Care Provider] - 1-2 days Time of Disposition: 16:29
[2021-07-10 12:21] LABS: Appearance,Urine Clear (Clear); Bilirubin,Urine Negative (Negative); Blood,Urine Negative (Negative); Color,Urine Light Yellow; Glucose,Urine (UA) Negative (Negative); Ketones,Urine Negative (Negative); Leukocyte Esterase,Urine Negative (Negative); Nitrite,Urine Negative (Negative); PH, Urine 6.5 (5.0-8.0); Protein,Urine Trace (Negative); Specific Gravity,Urine 1.012 (1.001-1.035); Urobilinogen,Urine <2.0 mg/dL (<2.0)
[2021-07-10 13:29] LABS: Lactic Acid, Venous 0.7 mmol/L (0.7-2.0)
[2021-07-10 13:31] LABS: INR 0.9 (<1.2); Partial Thromboplastin Time 23.1 sec (22.0-30.0); Prothrombin Time 9.8 sec (9.0-12.0)
[2021-07-10 14:01] VITALS: TEMP 97.8
[2021-07-10 14:07] LABS: Glucose,Whole Blood 84 mg/dL (75-99)
[2021-07-10] MEDS ORDERED: SODIUM CHLORIDE 0.9% 500 ML 500 ML IV ONE (15:20)
--- NOTE | 2021-07-10 15:58 | CT ---
EXAMINATION TYPE: CT brain cspine wo con DATE OF EXAM: 07/10/2021 COMPARISON: 08/12/2019 CT brain. 12/29/2018. HISTORY: Fall. CT DLP: 1292.7 mGycm Automated exposure control for dose reduction was used. There is cerebral cortical atrophy. There is metal artifact from apparent surgery at the right side o f the [place]. There is hypodensity in the periventricular white matter. There is no midline shift. There is no mass effect. No evidence of intracranial hemorrhage. There is mild enlargement of the ventricles. There is right temporal craniotomy defect. The skull base is intact. There is normal aeration of the mastoid sinuses. Cervical vertebra show a mild C3-4 and C4-5 degenerative subluxation. There is multilevel facet arthr opathy. No acute fracture seen. Mild degenerative disc space narrowing present at C4-5 and C5-6. IMPRESSION: Cervical spondylotic changes. No fracture. No change compared to old exam. Multilevel neural foramina l impingement. Cerebral atrophy and chronic small vessel ischemia. Previous surgery. No acute intracranial abnormali ty. No change compared to old exam.
--- NOTE | 2021-07-10 16:01 | XR ---
EXAMINATION TYPE: XR chest 2V DATE OF EXAM: 07/10/2021 COMPARISON: 06/29/2020 HISTORY: Altered mental status TECHNIQUE: FINDINGS: There is no heart failure nor confluent pneumonic infiltrate. Costophrenic angles are clear . Thoracic aorta is atheromatous. There is osteopenia. IMPRESSION: No active cardiopulmonary disease. No change.
[2021-07-10 16:54] VITALS: BP 156/78; PULSE 81; RESP 16
== END 2021-07-10 16:53 | disposition home or self-care (01) ==
LOC: EC 11:18
DX: E86.0 Dehydration (principal); Z86.73 Personal history of transient ischemic attack (TIA), and cerebral infarction without residual deficits; J44.9 Chronic obstructive pulmonary disease, unspecified; F03.90 Unspecified dementia, unspecified severity, without behavioral disturbance, psychotic disturbance, mood disturbance, and anxiety; Z91.018 Allergy to other foods; Z88.5 Allergy status to narcotic agent
CPT/HCPCS: 36415; 70450; 71046; 72125; 80048; 81003; 82140; 83605; 84484; 85025; 85610; 85730; 93005; 99284

== ENCOUNTER 2021-07-12 17:52 | Inpatient (IN) | payer MEDICARE ==
[2021-07-12] MEDS ORDERED: SODIUM CHLORIDE 0.9% 1,000 ML IV STA (18:11)
--- NOTE | 2021-07-12 18:17 | ED ---
Abdominal Pain HPI - General Chief Complaint: Abdominal Pain Stated Complaint: Abd pain Time Seen by Provider: 07/12/21 18:00 Source: patient, EMS, RN notes reviewed Mode of arrival: EMS Limitations: no limitations - History of Present Illness Initial Comments: This is a pleasant 85-year-old female with a history of multiple medical issues as listed in the past medical history. Patient presents to the emergency department today complaining of 2 hours of supraumbilical and epigastric abdominal pain. Patient states it seems to radiate across the upper abdomen, is quite intense. She denies any radiation of the back or to the chest. No a lleviating factors. Exacerbated by palpation. Patient states that she thought she was constipated but then had a normal bowel movement since the start of pain. Pain continues. As it without vomiting. Patient denies any known fever. Patient has a history of multiple abdominal surgeries to include appendectomy, cholecystectomy, hysterectomy, as well as abdominal aortic aneurysm repair. No headache, no fever or chills, no changes in vision or hearing, no sore throat or difficulty with speech, no neck pain, no chest pain or shortness of breath, , no changes in urination or bowel movements, no numbness or tingling, no extremity pain, no skin rashes or lesions. - Related Data Previous Rx's Medication Instructions Recorded Omeprazole 20 mg PO AC-BID #60 cap 06/30/20 Oxybutynin Chloride [Ditropan] 5 mg PO BID #60 tab 06/30/20 Allergies Allergy/AdvReac Type Severity Reaction Status Date / Time gluten Allergy Unknown Verified 07/12/21 18:19 codeine AdvReac Nausea & Verified 07/12/21 18:19 Vomiting Review of Systems ROS Statement: Those systems with pertinent positive or pertinent negative responses have been documented in the HPI. ROS Other: All systems not noted in ROS Statement are negative. Past Medical History Past Medical History: Cancer, COPD, CVA/TIA, GERD/Reflux, Musculoskeletal Disorder, Neurologic Disorder, Pneumonia, Renal Disease, Rheumatoid Arthritis (RA), Skin Disorder Additional Past Medical History / Comment(s): 2016 FALL/LT HIP FX(sx). 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 KIDNEY DX, PAD,"difficulty swallowing", uti-ecoli 2016, over active bladder wears a brief. ESRD History of Any Multi-Drug Resistant Organisms: None Reported Past Surgical History: Appendectomy, Cholecystectomy, Hysterectomy, Orthopedic Surgery Additional Past Surgical History / Comment(s): brain aneursym with surgery and angioplasty, aaa repair also, jani cataract, skin ca removed, lt breast bx and cyst removed, d&c, colonoscopy, orif lt hip, ORIF RT HIP, EGD Past Anesthesia/Blood Transfusion Reactions: No Reported Reaction Past Psychological History: No Psychological Hx Reported Smoking Status: Never smoker Past Alcohol Use History: None Reported Past Drug Use History: None Reported - Past Family History Mother Additional Family Medical History / Comment(s): BOWEL PROBLEMS/DIVERTICULAR DIEASE. LIVED TO BE 96 YEARS OLD Father History Unknown: Yes Additional Family Medical History / Comment(s): IN HIS SLEEEP AT AGE 86 Sister(s) Family Medical History: Cancer Additional Family Medical History / Comment(s): COLON Brother(s) Family Medical History: Cancer Additional Family Medical History / Comment(s): THROAT CANCER General Exam - General Exam Comments Initial Comments: Elderly female in mild distress. Vital signs are reviewed. Patient appears to be adequately hydrated. Capillary refill is less than 2 seconds. Moist mucous membranes. Cranial nerves II through XII are grossly intact Limitations: no limitations General appearance: alert, in no apparent distress Head exam: Present: atraumatic, normocephalic, normal inspection Eye exam: Present: normal appearance, PERRL, EOMI. Absent: scleral icterus, conjunctival injection, periorbital swelling ENT exam: Present: normal exam, mucous membranes moist Neck exam: Present: normal inspection. Absent: tenderness, meningismus, lymphadenopathy Respiratory exam: Present: normal lung sounds bilaterally. Absent: respiratory distress, wheezes, rales, rhonchi, stridor Cardiovascular Exam: Present: regular rate, normal rhythm, normal heart sounds. Absent: systolic murmur, diastolic murmur, rubs, gallop, clicks GI/Abdominal exam: Present: soft, tenderness (General tenderness across the upper abdomen with voluntary guarding. No rebound or percussion tenderness.), guarding, hyperactive bowel sounds. Absent: distended, rebound, rigid Extremities exam: Present: normal inspection, full ROM, normal capillary refill. Absent: tenderness, pedal edema, joint swelling, calf tenderness Back exam: Present: normal inspection Neurological exam: Present: alert, oriented X3, CN II-XII intact Psychiatric exam: Present: normal affect, normal mood Skin exam: Present: warm, dry, intact, normal color. Absent: rash Course Vital Signs 07/12/21 07/12/21 07/12/21 17:59 19:36 20:14 Temperature 98.2 F Pulse Rate 59 L 87 87 Respiratory 16 20 22 Rate Blood Pressure 159/77 175/92 170/101 O2 Sat by Pulse 94 L 97 97 Oximetry - Reevaluation(s) Reevaluation #1: 07/12/21 20:40 Reevaluation, patient had several episodes of vomiting here in the ER. Repeat abdominal examination reveals generalized tenderness. Computed tomography scan shows ileus. Reevaluation #2: 07/12/21 22:25 Medical record is reviewed Symptoms are improved here in the emergency department Patient is informed of results and questions answered Patient in no distress - Consultations Consultation #1: Case was discussed in detail with Dr. Wilson from the hospitalist group. He had subsequent admission. He requests consult surgery. Medical Decision Making - Medical Decision Making Given the patient's presentation, multiple etiologies are possible. To include partial small bowel obstruction, ischemic bowel, constipation, colitis, div erticulitis, clinical picture does not fit the presentation consistent with cardiopulmonary disease. Less likely to be urogenital. Abdominal/cardiac workup initiated. Computed tomography scan without contrast due to the patient's renal insufficiency. - Lab Data Result diagrams: 07/12/21 15:35 07/12/21 15:35 Lab Results 07/12/21 07/12/21 07/12/21 Range/Units 15:35 15:35 15:35 WBC 8.2 (3.8-10.6) k/uL RBC 3.90 (3.80-5.40) m/uL Hgb 11.5 (11.4-16.0) gm/dL Hct 35.6 (34.0-46.0) % MCV 91.4 (80.0-100.0) fL MCH 29.5 (25.0-35.0) pg MCHC 32.3 (31.0-37.0) g/dL RDW 13.5 (11.5-15.5) % Plt Count 228 (150-450) k/uL MPV 6.9 Neutrophils % 74 % Lymphocytes % 18 % Monocytes % 5 % Eosinophils % 1 % Basophils % 0 % Neutrophils # 6.1 (1.3-7.7) k/uL Lymphocytes # 1.5 (1.0-4.8) k/uL Monocytes # 0.4 (0-1.0) k/uL Eosinophils # 0.1 (0-0.7) k/uL Basophils # 0.0 (0-0.2) k/uL PT 10.0 (9.0-12.0) sec INR 0.9 (<1.2) APTT 18.3 L (22.0-30.0) sec Sodium 140 (137-145) mmol/L Potassium 4.1 (3.5-5.1) mmol/L Chloride 108 H (98-107) mmol/L Carbon Dioxide 19 L (22-30) mmol/L Anion Gap 13 mmol/L BUN 39 H (7-17) mg/dL Creatinine 1.85 H (0.52-1.04) mg/dL Est GFR (CKD-EPI)AfAm 28 (>60 ml/min/1.73 sqM) Est GFR (CKD-EPI)NonAf 24 (>60 ml/min/1.73 sqM) Glucose 119 H (74-99) mg/dL Plasma Lactic Acid [place] (0.7-2.0) mmol/L Calcium 9.0 (8.4-10.2) mg/dL Phosphorus 3.8 (2.5-4.5) mg/dL Magnesium 2.1 (1.6-2.3) mg/dL Total Bilirubin 0.5 (0.2-1.3) mg/dL AST 28 (14-36) U/L ALT 10 (4-34) U/L Alkaline Phosphatase 117 (38-126) U/L Troponin I (0.000-0.034) ng/mL Total Protein 8.3 H (6.3-8.2) g/dL Albumin 4.0 (3.5-5.0) g/dL Lipase 217 (23-300) U/L Urine Color Urine Appearance (Clear) Urine pH (5.0-8.0) Ur Specific [place] (1.001-1.035) Urine Protein (Negative) Urine Glucose (UA) (Negative) Urine Ketones (Negative) Urine Blood (Negative) Urine Nitrite (Negative) Urine Bilirubin (Negative) Urine Urobilinogen (<2.0) mg/dL Ur Leukocyte Esterase (Negative) Urine RBC (0-5) /hpf Urine WBC (0-5) /hpf Ur Squamous Epith Cells (0-4) /hpf Urine Mucus (None) /hpf 07/12/21 07/12/21 07/12/21 Range/Units 15:35 15:35 21:01 WBC (3.8-10.6) k/uL RBC (3.80-5.40) m/uL Hgb (11.4-16.0) gm/dL Hct (34.0-46.0) % MCV (80.0-100.0) fL MCH (25.0-35.0) pg MCHC (31.0-37.0) g/dL RDW (11.5-15.5) % Plt Count (150-450) k/uL MPV Neutrophils % % Lymphocytes % % Monocytes % % Eosinophils % % Basophils % % Neutrophils # (1.3-7.7) k/uL Lymphocytes # (1.0-4.8) k/uL Monocytes # (0-1.0) k/uL Eosinophils # (0-0.7) k/uL Basophils # (0-0.2) k/uL PT (9.0-12.0) sec INR (<1.2) APTT (22.0-30.0) sec Sodium (137-145) mmol/L Potassium (3.5-5.1) mmol/L Chloride (98-107) mmol/L Carbon Dioxide (22-30) mmol/L Anion Gap mmol/L BUN (7-17) mg/dL Creatinine (0.52-1.04) mg/dL Est GFR (CKD-EPI)AfAm (>60 ml/min/1.73 sqM) Est GFR (CKD-EPI)NonAf (>60 ml/min/1.73 sqM) Glucose (74-99) mg/dL Plasma Lactic Acid [place] 1.2 (0.7-2.0) mmol/L Calcium (8.4-10.2) mg/dL Phosphorus (2.5-4.5) mg/dL Magnesium (1.6-2.3) mg/dL Total Bilirubin (0.2-1.3) mg/dL AST (14-36) U/L ALT (4-34) U/L Alkaline Phosphatase (38-126) U/L Troponin I <0.012 (0.000-0.034) ng/mL Total Protein (6.3-8.2) g/dL Albumin (3.5-5.0) g/dL Lipase (23-300) U/L Urine Color Light Yellow Urine Appearance Clear (Clear) Urine pH 6.5 (5.0-8.0) Ur Specific [place] 1.011 (1.001-1.035) Urine Protein 1+ H (Negative) Urine Glucose (UA) Negative (Negative) Urine Ketones 1+ H (Negative) Urine Blood Trace H (Negative) Urine Nitrite Negative (Negative) Urine Bilirubin Negative (Negative) Urine Urobilinogen <2.0 (<2.0) mg/dL Ur Leukocyte Esterase Negative (Negative) Urine RBC 1 (0-5) /hpf Urine WBC <1 (0-5) /hpf Ur Squamous Epith Cells <1 (0-4) /hpf Urine Mucus Rare H (None) /hpf - EKG Data EKG Comments: EKG reveals sinus rhythm with rate of 84, normal intervals, no significant ST or T-wave changes. Borderline right axis deviation. When compared to previous study there is no significant change. Disposition Clinical Impression: Abdominal pain, Ileus, Uncontrolled hypertension, Generalized weakness Disposition: ADMITTED IP TO THIS [facility] Time of Disposition: 20:41 Decision to Admit Reason: Admit from EC Decision Time: 20:41
[2021-07-12 18:44] LABS: Basophils % (A) 0 %; Eosinophils # (A) 0.1 k/uL (0-0.7); Eosinophils % (A) 1 %; HCT 35.6 % (34.0-46.0); HGB 11.5 gm/dL (11.4-16.0); Lymphocytes # (A) 1.5 k/uL (1.0-4.8); Lymphocytes % (A) 18 %; MCH 29.5 pg (25.0-35.0); MCHC 32.3 g/dL (31.0-37.0); MCV 91.4 fL (80.0-100.0); Mean Platelet Volume 6.9; Monocytes # (A) 0.4 k/uL (0-1.0); Monocytes % (A) 5 %; Neutrophils # (A) 6.1 k/uL (1.3-7.7); Neutrophils % (A) 74 %; Platelet Count 228 k/uL (150-450); RDW 13.5 % (11.5-15.5); WBC 8.2 k/uL (3.8-10.6)
[2021-07-12 18:55] LABS: Magnesium 2.1 mg/dL (1.6-2.3); Phosphorus 3.8 mg/dL (2.5-4.5); Potassium 4.1 mmol/L (3.5-5.1); Total Bilirubin 0.5 mg/dL (0.2-1.3); Total Protein 8.3 g/dL (6.3-8.2)
[2021-07-12 18:59] LABS: INR 0.9 (<1.2)
[2021-07-12] MEDS ORDERED: ACETAMINOPHEN IV (For NPO) 650 MG in EMPTY BAG 1 BAG IVPB ONE (19:00)
[2021-07-12 19:13] LABS: Partial Thromboplastin Time 18.3 sec (22.0-30.0)
[2021-07-12] MEDS ORDERED: ONDANSETRON 4 MG/2 ML VIAL IVP STA ×2 (19:17→20:35)
--- NOTE | 2021-07-12 19:17 | XR ---
EXAMINATION TYPE: XR chest 1V portable DATE OF EXAM: 07/12/2021 COMPARISON: 07/10/2021 HISTORY: Abdominal pain TECHNIQUE: Single view FINDINGS: There is no heart failure nor confluent pneumonic infiltrate. There is slight elevated left diaphragm. Thoracic aorta is atheromatous. 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 This a ppears new compared to last exam. No pulmonary consolidation or heart failure.
--- NOTE | 2021-07-12 19:39 | CT ---
EXAMINATION TYPE: CT abdomen pelvis wo con DATE OF EXAM: 07/12/2021 COMPARISON: 01/19/2021 HISTORY: Upper abdominal pain and vomiting. CT DLP: 369.2 mGycm Automated exposure control for dose reduction was used. Images obtained from the diaphragm to the floor the pelvis without contrast. There is some patchy atelectasis and interstitial infiltrate at the lung bases. Heart is enlarged. No pericardial effusion. No pleural effusion. There is aneurysm of the thoracic aorta that measures up to 3.5 cm at the diaphragm. Mid thoracic aorta measures 3.5 cm. There is coronary artery calcificatio n. Liver is intact. Gallbladder appears intact. There is no evidence of splenic mass. There is tiny amou nt of fluid around the spleen. There is no pancreatic mass. The stomach is intact. There is no evidence of adrenal mass. There is some fullness of the left and right renal pelvis and t he ureters. Bladder distends smoothly. There are numerous phleboliths in the pelvis. There is left hi p nailing noted. There are multiple sigmoid diverticula. There are some distended small bowel loops w ith fluid levels. Small bowel measures up to 2.8 cm. Appendix not definitely seen. No sign of thicken ed appendix. No free air. There is small amount of low-density free fluid in the pelvis. There are spondylotic changes in the lumbar spine. There is degenerative disc space narrowing at L4-5 and L5-S1. There is L1 mild compression deformity 15%. Pelvic ring is intact. Sacroiliac joints are intact. IMPRESSION: Colonic diverticulosis without diverticulitis. Multiple small bowel fluid levels suggestive of ileus and similar to old exam. There is small amount of abdominal ascites fluid which is new compared to old exam. There is some mil d hydronephrosis but no obstructing calculus seen. This appears similar to old exam. Atherosclerotic vascular disease. Thoracic aortic aneurysm. Aneurysm not significantly different than last exam. There is some low-level pulmonary interstitial infiltrates and atelectasis increased compared to the old exam.
[2021-07-12] MEDS ORDERED: HYDROmorphone 1 MG/ML 1 ML SYRINGE IVP STA (20:35)
[2021-07-12 21:10] LABS: Appearance,Urine Clear (Clear); Bilirubin,Urine Negative (Negative); Blood,Urine Trace (Negative); Color,Urine Light Yellow; Glucose,Urine (UA) Negative (Negative); Ketones,Urine 1+ (Negative); Leukocyte Esterase,Urine Negative (Negative); Mucus,Urine Rare /hpf; Nitrite,Urine Negative (Negative); PH, Urine 6.5 (5.0-8.0); Protein,Urine 1+ (Negative); RBC,Urine 1 /hpf (0-5); Specific Gravity,Urine 1.011 (1.001-1.035); Squamous Epithelial Cell,Urine <1 /hpf (0-4); Urobilinogen,Urine <2.0 mg/dL (<2.0); WBC,Urine <1 /hpf (0-5)
[2021-07-12] MEDS ORDERED: NALOXONE 0.4 MG/ML 1 ML VIAL IV PRN (22:26)
[2021-07-13] MEDS: SODIUM CHLORIDE 0.9% 1,000 ML IV SCH ×2 (00:18→23:55)
[2021-07-13] MEDS: MORPHINE SULFATE 4 MG/ML SYRINGE IV PRN ×3 (00:23→23:56)
[2021-07-13] MEDS: PANTOPRAZOLE 40 MG/10 ML VIAL IV SCH ×2 (00:23→09:36)
[2021-07-13] MEDS: ENOXAPARIN 30 MG/0.3 ML SYRINGE SQ SCH ×2 (01:02→09:37)
[2021-07-13] MEDS: ONDANSETRON 4 MG/2 ML VIAL IVP PRN ×3 (03:39→22:09)
[2021-07-13 08:03] LABS: Basophils % (A) 0 %; Eosinophils % (A) 0 %; HGB 11.8 gm/dL (11.4-16.0); Lymphocytes % (A) 16 %; MCH 29.2 pg (25.0-35.0); MCHC 31.1 g/dL (31.0-37.0); MCV 93.9 fL (80.0-100.0); Mean Platelet Volume 6.9; Monocytes # (A) 0.4 k/uL (0-1.0); Monocytes % (A) 6 %; Neutrophils # (A) 4.7 k/uL (1.3-7.7); Neutrophils % (A) 76 %; Platelet Count 228 k/uL (150-450); RBC 4.05 m/uL (3.80-5.40); RDW 13.7 % (11.5-15.5); WBC 6.2 k/uL (3.8-10.6)
[2021-07-13 08:35] LABS: Albumin 3.3 g/dL (3.5-5.0); Calcium 8.7 mg/dL (8.4-10.2); Potassium 4.6 mmol/L (3.5-5.1); Total Bilirubin 0.5 mg/dL (0.2-1.3); Total Protein 7.5 g/dL (6.3-8.2)
--- NOTE | 2021-07-13 09:04 | P.GSCN ---
History of Present Illness Consult date: 07/13/21 Reason for Consult: Abdominal pain History of present illness: This is a 5-year-old female was admitted through the emergency room. Patient po ints of abdominal pain. Patient underwent CAT scan shows possible ileus on her cat scan. patient feels bloated. she did have some nausea. she states she feels better than she did last night. she states she has minimal pain while resting in bed. Past Medical History Past Medical History: Cancer, COPD, CVA/TIA, GERD/Reflux, Musculoskeletal Disorder, Neurologic Disorder, Pneumonia, Renal Disease, Rheumatoid Arthritis (RA), Skin Disorder Additional Past Medical History / Comment(s): 2016 FALL/LT HIP FX(sx). 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 KIDNEY DX, PAD,"difficulty swallowing", uti-ecoli 2015, over active bladder wears a brief. ESRD History of Any Multi-Drug Resistant Organisms: None Reported Past Surgical History: Appendectomy, Cholecystectomy, Hysterectomy, Orthopedic Surgery Additional Past Surgical History / Comment(s): brain aneursym with surgery and angioplasty, aaa repair also, jani cataract, skin ca removed, lt breast bx and cyst removed, d&c, colonoscopy, orif lt hip, ORIF RT HIP, EGD Past Anesthesia/Blood Transfusion Reactions: No Reported Reaction Past Psychological History: No Psychological Hx Reported Additional Psychological History / Comment(s): . Smoking Status: Never smoker Past Alcohol Use History: None Reported Additional Past Alcohol Use History / Comment(s): started smoking at age 17, quit 2002, was smoking 5 cig per day Past Drug Use History: None Reported - Past Family History Mother Additional Family Medical History / Comment(s): BOWEL PROBLEMS/DIVERTICULAR DIEASE. LIVED TO BE 96 YEARS OLD Father History Unknown: Yes Additional Family Medical History / Comment(s): IN HIS SLEEEP AT AGE 86 Sister(s) Family Medical History: Cancer Additional Family Medical History / Comment(s): COLON Brother(s) Family Medical History: Cancer Additional Family Medical History / Comment(s): THROAT CANCER Medications and Allergies Home Medications Medication Instructions Recorded Confirmed Type Omeprazole 20 mg PO AC-BID #60 cap 06/30/20 07/12/21 Rx Oxybutynin Chloride [Ditropan] 5 mg PO BID #60 tab 06/30/20 07/12/21 Rx Allergies Allergy/AdvReac Type Severity Reaction Status Date / Time gluten Allergy Unknown Verified 07/12/21 18:19 codeine AdvReac Nausea & Verified 07/12/21 18:19 Vomiting Surgical - Exam Vital Signs Temp Pulse Resp BP Pulse Ox 98.2 F 59 L 16 159/77 94 L 07/12/21 17:59 07/12/21 17:59 07/12/21 17:59 07/12/21 17:59 07/12/21 17:59 - General well developed, well nourished, no distress - Eyes PERRL - ENT normal pinna - Neck no masses - Respiratory normal expansion - Cardiovascular Rhythm: regular - Abdomen Abdomen soft. There is mild distention. There is no rebound or guarding. Results - Labs 07/13/21 07:49 07/13/21 07:49 Abnormal Lab Results - Last 24 Hours (Table) 07/12/21 07/12/21 07/12/21 Range/Units 15:35 15:35 21:01 APTT 18.3 L (22.0-30.0) sec Chloride 108 H (98-107) mmol/L Carbon Dioxide 19 L (22-30) mmol/L BUN 39 H (7-17) mg/dL Creatinine 1.85 H (0.52-1.04) mg/dL Glucose 119 H (74-99) mg/dL Total Protein 8.3 H (6.3-8.2) g/dL Albumin (3.5-5.0) g/dL Urine Protein 1+ H (Negative) Urine Ketones 1+ H (Negative) Urine Blood Trace H (Negative) Urine Mucus Rare H (None) /hpf 07/13/21 Range/Units 07:49 APTT (22.0-30.0) sec Chloride 110 H (98-107) mmol/L Carbon Dioxide (22-30) mmol/L BUN 36 H (7-17) mg/dL Creatinine 1.74 H (0.52-1.04) mg/dL Glucose 109 H (74-99) mg/dL Total Protein (6.3-8.2) g/dL Albumin 3.3 L (3.5-5.0) g/dL Urine Protein (Negative) Urine Ketones (Negative) Urine Blood (Negative) Urine Mucus (None) /hpf Diabetes panel 07/12/21 07/13/21 Range/Units 15:35 07:49 Sodium 140 141 (137-145) mmol/L Potassium 4.1 4.6 (3.5-5.1) mmol/L Chloride 108 H 110 H (98-107) mmol/L Carbon Dioxide 19 L 25 (22-30) mmol/L BUN 39 H 36 H (7-17) mg/dL Creatinine 1.85 H 1.74 H (0.52-1.04) mg/dL Glucose 119 H 109 H (74-99) mg/dL Calcium 9.0 8.7 (8.4-10.2) mg/dL AST 28 25 (14-36) U/L ALT 10 8 (4-34) U/L Alkaline Phosphatase 117 99 (38-126) U/L Total Protein 8.3 H 7.5 (6.3-8.2) g/dL Albumin 4.0 3.3 L (3.5-5.0) g/dL Calcium panel 07/12/21 07/13/21 Range/Units 15:35 07:49 Calcium 9.0 8.7 (8.4-10.2) mg/dL Phosphorus 3.8 (2.5-4.5) mg/dL Albumin 4.0 3.3 L (3.5-5.0) g/dL Pituitary panel 07/12/21 07/13/21 Range/Units 15:35 07:49 Sodium 140 141 (137-145) mmol/L Potassium 4.1 4.6 (3.5-5.1) mmol/L Chloride 108 H 110 H (98-107) mmol/L Carbon Dioxide 19 L 25 (22-30) mmol/L BUN 39 H 36 H (7-17) mg/dL Creatinine 1.85 H 1.74 H (0.52-1.04) mg/dL Glucose 119 H 109 H (74-99) mg/dL Calcium 9.0 8.7 (8.4-10.2) mg/dL Adrenal panel 07/12/21 07/13/21 Range/Units 15:35 07:49 Sodium 140 141 (137-145) mmol/L Potassium 4.1 4.6 (3.5-5.1) mmol/L Chloride 108 H 110 H (98-107) mmol/L Carbon Dioxide 19 L 25 (22-30) mmol/L BUN 39 H 36 H (7-17) mg/dL Creatinine 1.85 H 1.74 H (0.52-1.04) mg/dL Glucose 119 H 109 H (74-99) mg/dL Calcium 9.0 8.7 (8.4-10.2) mg/dL Total Bilirubin 0.5 0.5 (0.2-1.3) mg/dL AST 28 25 (14-36) U/L ALT 10 8 (4-34) U/L Alkaline Phosphatase 117 99 (38-126) U/L Total Protein 8.3 H 7.5 (6.3-8.2) g/dL Albumin 4.0 3.3 L (3.5-5.0) g/dL - Imaging CT scan - abdomen: report reviewed (Computed tomography scan of the abdomen is reviewed. There is possibility of small bowel ileus with some air-fluid levels.) Assessment and Plan Assessment: Patient will be observed. She may have a resolving ileus. She is still some distended. I would recommend to continue nothing by mouth for now. We will start diet once her bowel function returns.
[2021-07-13] MEDS: OXYBUTYNIN CHLORIDE 5 MG TAB PO SCH ×3 (09:37→23:56)
[2021-07-13] MEDS ORDERED: PIPERACILLIN-TAZOBACTAM 3.375 GM in SODIUM CHLORIDE 0.9% 100 ML IVPB STA (12:00)
--- NOTE | 2021-07-13 16:27 | P.HPIM ---
History of Present Illness H&P Date: 07/13/21 Chief Complaint: Abdominal pain History of presenting complaint: This is a 85-year-old patient of Dr. Johnson. Chronic stable medical conditions include COPD, GERD, rheumatoid arthritis, celiac disease, chronic urinary incontinence, lumbar radiculopathy , diverticulosis. Patient does use a walker. She was admitted here in January 2021 with severe bowel spasms. Patient yesterday after started having increasing abdominal pain across. Leg cramping. Along with nausea vomiting. Not able to keep anything down. [place] hot. Normally has a bowel movement every other day. Had a bowel movement yesterday. No improvement. Computed tomography scan of the ER showed air-fluid levels. Made nothing by mouth. Surgery consulted. 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 . Does use a walker to get about . Family history: Throat cancer Physical examination: VITAL SIGNS: 98.2, 59, 16, 159/77, 94% room air upon presentation GENERAL: BMI 18.6 sitting up in bed, uncomfortable EYES: Pupils equal. Conjunctiva normal. HEENT: External appearance of nose and ears normal, oral cavity grossly normal. NECK: JVD not raised; masses not palpable. HEART: First and second heart sounds are normal; no edema. LUNGS: Respiratory rate normal; clear to auscultation. ABDOMEN: Soft, tender, liver spleen not palpable, no masses palpable. PSYCH: Alert and oriented x3; mood and affect anxious NEUROLOGICAL: Cranial nerves grossly intact; no facial asymmetry, power and sensation grossly intact. LYMPHATICS: No lymph nodes palpable in the axilla and neck MUSCULOSKELETAL: Evidence of arthritis especially in the hands, INVESTIGATIONS, reviewed in the clinical context: White count 6.2 hemoglobin 11.8 platelets 228 potassium 4.6 BUN 36 creatinine 1.74 EKG tracing personally reviewed by me-normal sinus rhythm. Rate 84 CT abdomen pelvis without contrast: Chronic diverticulosis. Multiple small bowel fluid levels. Other findings noted. Previous labs: Creatinine 2.04 on January 2021. Assessment and plan: -Acute abdominal pain that started yesterday. Small bowel air-fluid levels noted. No obvious fever and chills. We will use and pedicle IV Zosyn if any element of enteritis/colitis. Surgery consulted. Nothing by mouth. -COPD, in a previous smoker Albuterol when necessary -GERD Omeprazole 20 mg twice a day -Rheumatoid arthritis Pain control -Chronic celiac disease Gluten-free diet -Overactive bladder causing incontinence uses a brief - Colonic diverticulosis, Follow clinically IV fluids. Home medications. And pedicle IV Zosyn. Care was discussed patient questions answered. Subcu Lovenox. Consult surgery. GI services not available to the hospital. Past Medical History Past Medical History: Cancer, COPD, CVA/TIA, GERD/Reflux, Musculoskeletal Disorder, Neurologic Disorder, Pneumonia, Renal Disease, Rheumatoid Arthritis (RA), Skin Disorder Additional Past Medical History / Comment(s): 2016 FALL/LT HIP FX(sx). 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 KIDNEY DX, PAD,"difficulty swallowing", uti-ecoli 2016, over active bladder wears a brief. ESRD History of Any Multi-Drug Resistant Organisms: None Reported Past Surgical History: Appendectomy, Cholecystectomy, Hysterectomy, Orthopedic Surgery Additional Past Surgical History / Comment(s): brain aneursym with surgery and angioplasty, aaa repair also, jani cataract, skin ca removed, lt breast bx and cyst removed, d&c, colonoscopy, orif lt hip, ORIF RT HIP, EGD Past Anesthesia/Blood Transfusion Reactions: No Reported Reaction Past Psychological History: No Psychological Hx Reported Additional Psychological History / Comment(s): . Smoking Status: Never smoker Past Alcohol Use History: None Reported Additional Past Alcohol Use History / Comment(s): started smoking at age 17, quit 2002, was smoking 5 cig per day Past Drug Use History: None Reported - Past Family History Mother Additional Family Medical History / Comment(s): BOWEL PROBLEMS/DIVERTICULAR DIEASE. LIVED TO BE 96 YEARS OLD Father History Unknown: Yes Additional Family Medical History / Comment(s): IN HIS SLEEEP AT AGE 86 Sister(s) Family Medical History: Cancer Additional Family Medical History / Comment(s): COLON Brother(s) Family Medical History: Cancer Additional Family Medical History / Comment(s): THROAT CANCER Medications and Allergies Home Medications Medication Instructions Recorded Confirmed Type Omeprazole 20 mg PO AC-BID #60 cap 06/30/20 07/12/21 Rx Oxybutynin Chloride [Ditropan] 5 mg PO BID #60 tab 06/30/20 07/12/21 Rx Allergies Allergy/AdvReac Type Severity Reaction Status Date / Time gluten Allergy Unknown Verified 07/12/21 18:19 codeine AdvReac Nausea & Verified 07/12/21 18:19 Vomiting Physical Exam Vitals: Vital Signs Temp Pulse Pulse Resp BP BP Pulse Ox 07/13/21 09:00 71 18 134/71 94 L 07/13/21 06:35 97.0 F L 72 16 128/72 96 07/13/21 00:48 98.2 F 88 18 155/82 98 07/13/21 00:16 89 20 156/86 97 07/12/21 20:14 87 22 170/101 97 07/12/21 19:36 87 20 175/92 97 07/12/21 17:59 98.2 F 59 L 16 159/77 94 L Intake and Output 07/12/21 07/13/21 07/13/21 22:59 06:59 14:59 Other: Weight 43.091 kg 43.091 kg Results CBC & Chem 7: 07/13/21 07:49 07/13/21 07:49 Labs: Abnormal Lab Results - Last 24 Hours (Table) 07/12/21 07/12/21 07/12/21 Range/Units 15:35 15:35 21:01 APTT 18.3 L (22.0-30.0) sec Chloride 108 H (98-107) mmol/L Carbon Dioxide 19 L (22-30) mmol/L BUN 39 H (7-17) mg/dL Creatinine 1.85 H (0.52-1.04) mg/dL Glucose 119 H (74-99) mg/dL Total Protein 8.3 H (6.3-8.2) g/dL Albumin (3.5-5.0) g/dL Urine Protein 1+ H (Negative) Urine Ketones 1+ H (Negative) Urine Blood Trace H (Negative) Urine Mucus Rare H (None) /hpf 07/13/21 Range/Units 07:49 APTT (22.0-30.0) sec Chloride 110 H (98-107) mmol/L Carbon Dioxide (22-30) mmol/L BUN 36 H (7-17) mg/dL Creatinine 1.74 H (0.52-1.04) mg/dL Glucose 109 H (74-99) mg/dL Total Protein (6.3-8.2) g/dL Albumin 3.3 L (3.5-5.0) g/dL Urine Protein (Negative) Urine Ketones (Negative) Urine Blood (Negative) Urine Mucus (None) /hpf Thrombosis Risk Factor Assmnt - Choose All That Apply Any of the Below Risk Factors Present?: No Other Risk Factors: Yes Each Risk Factor Represents 3 Points: Age 75 years or older Thrombosis Risk Factor Assessment Total Risk Factor Score: 3 Thrombosis Risk Factor Assessment Level: Moderate Risk
[2021-07-13] MEDS: PIPERACILLIN-TAZOBACTAM 3.375 GM in SODIUM CHLORIDE 0.9% 100 ML IVPB SCH (23:55)
[2021-07-14] MEDS: SODIUM CHLORIDE 0.9% 1,000 ML IV SCH ×4 (06:02→18:26)
[2021-07-14 06:58] LABS: African American GFR (CKD) 32 (>60 ml/min/1.73 sqM); Anion Gap 9 mmol/L; Blood Urea Nitrogen 31 mg/dL (7-17); Calcium 9.1 mg/dL (8.4-10.2); Carbon Dioxide 23 mmol/L (22-30); Chloride 109 mmol/L (98-107); Glucose 120 mg/dL (74-99); Non-African American GFR(CKD) 28 (>60 ml/min/1.73 sqM); Potassium 4.4 mmol/L (3.5-5.1); Sodium 141 mmol/L (137-145)
[2021-07-14] MEDS ORDERED: PANTOPRAZOLE 40 MG TABLET PO SCH (07:30)
[2021-07-14] MEDS: ONDANSETRON 4 MG/2 ML VIAL IVP PRN (08:28)
[2021-07-14] MEDS: DICYCLOMINE 10 MG CAP PO SCH ×4 (10:56→23:03)
[2021-07-14] MEDS: ENOXAPARIN 30 MG/0.3 ML SYRINGE SQ SCH (11:57)
[2021-07-14] MEDS: PIPERACILLIN-TAZOBACTAM 3.375 GM in SODIUM CHLORIDE 0.9% 100 ML IVPB SCH ×2 (11:58→21:13)
[2021-07-14] MEDS: PANTOPRAZOLE 40 MG/10 ML VIAL IVP SCH (12:01)
[2021-07-14] MEDS: MORPHINE SULFATE 4 MG/ML SYRINGE IV PRN (12:45)
--- NOTE | 2021-07-14 13:05 | XR ---
EXAMINATION TYPE: XR abdomen 2V DATE OF EXAM: 07/14/2021 COMPARISON: 06/30/2021 INDICATION: Pain TECHNIQUE: Single view abdomen upright and supine views FINDINGS: There are air-filled small bowel loops within the upper abdomen. Bowel loops measure 3 to 3.6 cm in t ransverse dimension. No free air is evident. No differential air-fluid levels are present. No mass ef fect is evident. There is present at the level of the rectum with bowel gas within the ascending and transverse colon. No organomegaly is present. IMPRESSION: 1. Multiple prominent air-filled small bowel loops with air within the colon. Correlate for ileus. Fo llow-up is recommended.
--- NOTE | 2021-07-14 14:38 | P.PN ---
Subjective Progress Note Date: 07/14/21 CHIEF COMPLAINT: Abdominal pain HISTORY OF PRESENT ILLNESS: Surgical service following regards to patient's ileus. She does report having flatus. But is still complaining of abdominal pain. She reports her pain about a 10 out of 10. She did have vomiting during the night. This is not resolved. She does complain of nausea. Denies any bowel movement. Creatinine 1.64 afebrile. Abdominal x-ray multiple prominent air-filled small bowel loops with air within the colon correlate for ileus Patient seen and examined with Dr. hicks PHYSICAL EXAM: VITAL SIGNS: Reviewed. GENERAL: Well-developed in no acute distress. HEENT: No sclera icterus. Extraocular movements grossly intact. Moist buccal mucosa. Head is atraumatic, normocephalic. ABDOMEN: Soft. Distended with tenderness with palpation in the upper abdomen NEUROLOGIC: Alert and oriented. Cranial nerves II through XII grossly intact. ASSESSMENT: 1. Ileus 2. Abdominal pain PLAN: -Place NG tube for decompression -Keep patient nothing by mouth -Continue IV fluids -Continue supportive care -Continue pain medication as needed Physician [employer] Worker note has been reviewed by physician. Signing provider agrees with the documented findings, assessment, and plan of care. Objective - Vital Signs Vital signs: Vital Signs Temp 97.5 F L 07/14/21 12:25 Pulse 92 07/14/21 12:25 Resp 18 07/14/21 12:25 BP 173/97 07/14/21 12:25 Pulse Ox 94 L 07/14/21 12:25 Intake & Output 07/13/21 07/14/21 07/14/21 18:59 06:59 18:59 Intake Total 100 Balance 100 Intake: Intake, IV Titration 100 Amount Piperacillin-Tazobactam 3 100 .375 gm In Sodium Chloride 0.9% 100 ml @ 200 mls/hr IVPB ONCE STA Rx#:[id number] Other: Voiding Method Diaper Diaper Incontinent Incontinent # Voids 2 - Labs CBC & Chem 7: 07/13/21 07:49 07/14/21 06:21 Labs: Abnormal Lab Results - Last 24 Hours (Table) 07/14/21 07/14/21 Range/Units 06:21 06:21 Chloride 109 H (98-107) mmol/L BUN 31 H (7-17) mg/dL Creatinine 1.64 H (0.52-1.04) mg/dL Glucose 120 H (74-99) mg/dL Procalcitonin 0.12 H (0.02-0.09) ng/mL
--- NOTE | 2021-07-14 16:14 | P.PN ---
Progress Note - Text Progress Note Date: 07/14/21 Chief Complaint: Abdominal pain History of presenting complaint: This is a 85-year-old patient of Dr. Johnson. Chronic stable medical conditions include COPD, GERD, rheumatoid arthritis, celiac disease, chronic urinary incontinence, lumbar radiculopathy , diverticulosis. Patient does use a walker. She was admitted here in January 2021 with severe bowel spasms. Patient yesterday after started having increasing abdominal pain across. Leg cramping. Along with nausea vomiting. Not able to keep anything down. [place] hot. Normally has a bowel movement every other day. Had a bowel movement yesterday. No improvement. Computed tomography scan of the ER showed air-fluid levels. Made nothing by mouth. Surgery consulted. Admitted with acute possible colitis with severe bowel spasms. July 14: Slurring significant abdominal pain. Scheduled Bentyl added. Con tinue with IV fluids. IV Zosyn. Remains nothing by mouth. Active Medications Dicyclomine HCl (Dicyclomine 10 Mg Cap) 10 mg PO QID [facility] Last Admin: 07/14/21 12:46 Dose: 10 mg Documented by: Enoxaparin Sodium (Enoxaparin 30 Mg/0.3 Ml Syringe) 30 mg SQ DAILY [facility] Last Admin: 07/14/21 11:57 Dose: 30 mg Documented by: Piperacillin Sod/Tazobactam (Sod 3.375 gm/ Sodium Chloride) 100 mls @ 25 mls/hr IVPB Q12HR [facility]; Protocol Last Admin: 07/14/21 11:58 Dose: 25 mls/hr Documented by: Sodium Chloride (Saline 0.9%) 1,000 mls @ 130 mls/hr IV .Q7H42M [facility] Last Admin: 07/14/21 10:57 Dose: 130 mls/hr Documented by: Morphine Sulfate (Morphine Sulfate 4 Mg/Ml Syringe) 4 mg IV Q4HR PRN PRN Reason: Severe Pain Last Admin: 07/14/21 12:45 Dose: 2 mg Documented by: Naloxone HCl (Naloxone 0.4 Mg/Ml 1 Ml Vial) 0.2 mg IV Q2M PRN PRN Reason: Opioid Reversal Ondansetron HCl (Ondansetron 4 Mg/2 Ml Vial) 4 mg IVP Q8HR PRN PRN Reason: Nausea And Vomiting Last Admin: 07/14/21 08:28 Dose: 4 mg Documented by: Oxybutynin Chloride (Oxybutynin Chloride 5 Mg Tab) 5 mg PO BID [facility] Last Admin: 07/13/21 23:56 Dose: 5 mg Documented by: Pantoprazole Sodium (Pantoprazole 40 Mg/10 Ml Vial) 40 mg IVP DAILY [facility] Last Admin: 07/14/21 12:01 Dose: 40 mg Documented by: Past medical history to include: COPD, GERD, rheumatoid arthritis, questionable stroke, pubic rami fracture, celiac disease, cerebral aneurysm and AAA repair, lumbar radiculopathy, 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 . Does use a walker to get about . Family history: Throat cancer Physical examination: VITAL SIGNS: 97.5, 92, 18, 167/90, 94% room air GENERAL: Laying in bed uncomfortable EYES: Pupils equal. Conjunctiva normal. HEENT: External appearance of nose and ears normal, oral cavity grossly normal. NECK: JVD not raised; masses not palpable. HEART: First and second heart sounds are normal; no edema. LUNGS: Respiratory rate normal; clear to auscultation. ABDOMEN: Soft, tender, no guarding rigidity liver spleen not palpable, no masses palpable. PSYCH: Alert and oriented x3; mood and affect anxious NEUROLOGICAL: Cranial nerves grossly intact; no facial asymmetry, power and sensation grossly intact. MUSCULOSKELETAL: Evidence of arthritis especially in the hands, INVESTIGATIONS, reviewed in the clinical context: July 14: Potassium 4.4 BUN 31 creatinine 1.64 pro-calcitonin 0.12 White count 6.2 hemoglobin 11.8 platelets 228 potassium 4.6 BUN 36 creatinine 1.74 EKG tracing personally reviewed by me-normal sinus rhythm. Rate 84 CT abdomen pelvis without contrast: Chronic diverticulosis. Multiple small bowel fluid levels. Other findings noted. Previous labs: Creatinine 2.04 on January 2021. Assessment and plan: -Acute abdominal pain that started yesterday. Small bowel air-fluid levels noted. No obvious fever and chills. Empirically IV Zosyn for possible enteritis/colitis.: Slow to respond Continue Nothing by mouth. IV Zosyn. 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 Continue IV Zosyn. Add Bentyl. Repeat labs. Keep nothing by mouth. Discussed with patient.
[2021-07-14] MEDS: OXYBUTYNIN CHLORIDE 5 MG TAB PO SCH (23:03)
[2021-07-15] MEDS: SODIUM CHLORIDE 0.9% 1,000 ML IV SCH ×2 (02:35→15:13)
[2021-07-15] MEDS: MORPHINE SULFATE 4 MG/ML SYRINGE IV PRN ×2 (02:56→09:47)
[2021-07-15 07:11] LABS: Potassium 4.2 mmol/L (3.5-5.1)
[2021-07-15 07:12] LABS: African American GFR (CKD) 43 (>60 ml/min/1.73 sqM); Anion Gap 10 mmol/L; Blood Urea Nitrogen 26 mg/dL (7-17); Calcium 8.8 mg/dL (8.4-10.2); Carbon Dioxide 18 mmol/L (22-30); Chloride 109 mmol/L (98-107); Glucose 111 mg/dL (74-99); Non-African American GFR(CKD) 38 (>60 ml/min/1.73 sqM); Sodium 137 mmol/L (137-145)
[2021-07-15] MEDS: PIPERACILLIN-TAZOBACTAM 3.375 GM in SODIUM CHLORIDE 0.9% 100 ML IVPB SCH ×2 (09:46→21:00)
[2021-07-15] MEDS: ENOXAPARIN 30 MG/0.3 ML SYRINGE SQ SCH (09:47)
[2021-07-15] MEDS: PANTOPRAZOLE 40 MG/10 ML VIAL IVP SCH (09:47)
[2021-07-15] MEDS: cloNIDine 0.2 MG/24HR PATCH TRANSDERM SCH (09:50)
[2021-07-15] MEDS: DICYCLOMINE 10 MG CAP PO SCH ×4 (09:57→21:28)
[2021-07-15] MEDS: OXYBUTYNIN CHLORIDE 5 MG TAB PO SCH ×2 (09:57→21:00)
--- NOTE | 2021-07-15 15:17 | P.PN ---
Subjective Progress Note Date: 07/15/21 CHIEF COMPLAINT: Abdominal pain HISTORY OF PRESENT ILLNESS: Surgical service following regards to patient's ileus versus partial small bowel traction. Patient reports a decrease in her abdominal pain since placement of the NG tube. She is having flatus. Denies any bowel movement. NG tube with 530 mL output through the night. She denies any nausea. She has been having elevated blood pressures. Afebrile. Creatinine 1.29 Patient seen and examined with Dr. hicks PHYSICAL EXAM: VITAL SIGNS: Reviewed. GENERAL: Well-developed in no acute distress. HEENT: No sclera icterus. Extraocular movements grossly intact. Moist buccal mucosa. Head is atraumatic, normocephalic. ABDOMEN: Soft. Less distended. NEUROLOGIC: Alert and oriented. Cranial nerves II through XII grossly intact. ASSESSMENT: 1. Ileus versus partial small bowel traction 2. Abdominal pain PLAN: -If patient continues not to have bowel movements would recommend repeating computed tomography scan of abdomen -Continue NG tube for decompression -Keep patient nothing by mouth -Continue IV fluids -Continue supportive care -Continue pain medication as needed Physician Service Unit Operator note has been reviewed by physician. Signing provider agrees with the documented findings, assessment, and plan of care. Objective - Vital Signs Vital signs: Vital Signs Temp 97.5 F L 07/15/21 12:14 Pulse 91 07/15/21 12:14 Resp 14 07/15/21 12:14 BP 136/79 07/15/21 12:14 Pulse Ox 92 L 07/15/21 12:14 Intake & Output 07/14/21 07/15/21 07/15/21 18:59 06:59 18:59 Intake Total 1660 1400 Output Total 400 130 Balance 1260 1270 Weight 43.091 kg Intake: Intake, IV Titration 1660 1400 Amount Piperacillin-Tazobactam 3 100 100 .375 gm In Sodium Chloride 0.9% 100 ml @ 25 mls/hr IVPB Q12HR [facility] Rx #:[id number] Sodium Chloride 0.9% 1, 1560 1300 000 ml @ 130 mls/hr IV . Q7H42M [facility] Rx#:[id number] Oral 0 Output: Gastric Drainage 400 130 Other: Voiding Method Diaper Diaper Diaper # Voids 4 3 5 - Labs CBC & Chem 7: 07/13/21 07:49 07/15/21 06:15 Labs: Abnormal Lab Results - Last 24 Hours (Table) 07/15/21 Range/Units 06:15 Chloride 109 H (98-107) mmol/L Carbon Dioxide 18 L (22-30) mmol/L BUN 26 H (7-17) mg/dL Creatinine 1.29 H (0.52-1.04) mg/dL Glucose 111 H (74-99) mg/dL
[2021-07-15] MEDS: DEXTROSE 5% IN WATER 1,000 ML with SODIUM BICARB (1 MEQ/ML) 100 ML IV SCH (15:29)
--- NOTE | 2021-07-15 16:49 | P.PN ---
Progress Note - Text Progress Note Date: 07/15/21 Chief Complaint: Abdominal pain History of presenting complaint: This is a 85-year-old patient of Dr. Johnson. Chronic stable medical conditions include COPD, GERD, rheumatoid arthritis, celiac disease, chronic urinary incontinence, lumbar radiculopathy , diverticulosis. Patient does use a walker. She was admitted here in January 2021 with severe bowel spasms. Patient yesterday after started having increasing abdominal pain across. Leg cramping. Along with nausea vomiting. Not able to keep anything down. [place] hot. Normally has a bowel movement every other day. Had a bowel movement yesterday. No improvement. Computed tomography scan of the ER showed air-fluid levels. Made nothing by mouth. Surgery consulted. Admitted with acute possible colitis with severe bowel spasms. July 14: Slurring significant abdominal pain. Scheduled Bentyl added. Con tinue with IV fluids. IV Zosyn. Remains nothing by mouth. July 15: NG tube was placed yesterday for small bowel obstruction. Output noted. Abdominal distention better. Decreased abdominal pain. Laying in bed. Empirically and IV Zosyn. Catapres patch 0.2 started for uncontrolled blood pressure. Active Medications Clonidine HCl (Clonidine 0.2 Mg/24hr Patch) 1 patch TRANSDERM Q7D [facility] Last Admin: 07/15/21 09:50 Dose: 1 patch Documented by: Dicyclomine HCl (Dicyclomine 10 Mg Cap) 10 mg PO QID [facility] Last Admin: 07/15/21 15:14 Dose: Not Given Documented by: Enoxaparin Sodium (Enoxaparin 30 Mg/0.3 Ml Syringe) 30 mg SQ DAILY [facility] Last Admin: 07/15/21 09:47 Dose: 30 mg Documented by: Piperacillin Sod/Tazobactam (Sod 3.375 gm/ Sodium Chloride) 100 mls @ 25 mls/hr IVPB Q12HR [facility]; Protocol Last Admin: 07/15/21 09:46 Dose: 25 mls/hr Documented by: Sodium Bicarbonate 100 ml/ (Dextrose/Water) 1,100 mls @ 100 mls/hr IV .Q11H [facility] Last Admin: 07/15/21 15:29 Dose: 100 mls/hr Documented by: Morphine Sulfate (Morphine Sulfate 4 Mg/Ml Syringe) 4 mg IV Q4HR PRN PRN Reason: Severe Pain Last Admin: 07/15/21 09:47 Dose: 4 mg Documented by: Naloxone HCl (Naloxone 0.4 Mg/Ml 1 Ml Vial) 0.2 mg IV Q2M PRN PRN Reason: Opioid Reversal Ondansetron HCl (Ondansetron 4 Mg/2 Ml Vial) 4 mg IVP Q8HR PRN PRN Reason: Nausea And Vomiting Last Admin: 07/14/21 08:28 Dose: 4 mg Documented by: Oxybutynin Chloride (Oxybutynin Chloride 5 Mg Tab) 5 mg PO BID [facility] Last Admin: 07/15/21 09:57 Dose: Not Given Documented by: Pantoprazole Sodium (Pantoprazole 40 Mg/10 Ml Vial) 40 mg IVP DAILY [facility] Last Admin: 07/15/21 09:47 Dose: 40 mg Documented by: Past medical history to include: COPD, GERD, rheumatoid arthritis, questionable stroke, pubic rami fracture, celiac disease, cerebral aneurysm and AAA repair, lumbar radiculopathy, 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 . Does use a walker to get about . Family history: Throat cancer Physical examination: VITAL SIGNS: 7.5, 91, 14, 136.79, 92% room air GENERAL: Laying in bed , more comfortable EYES: Pupils equal. Conjunctiva normal. HEENT: External appearance of nose and ears normal, oral cavity grossly normal. NECK: JVD not raised; masses not palpable. HEART: First and second heart sounds are normal; no edema. LUNGS: Respiratory rate normal; clear to auscultation. ABDOMEN: Soft, decreased tenderness, decreased distention, no guarding rigidity liver spleen not palpable, no masses palpable. PSYCH: Alert and oriented x3; mood and affect anxious NEUROLOGICAL: Cranial nerves grossly intact; no facial asymmetry, power and sensation grossly intact. MUSCULOSKELETAL: Evidence of arthritis especially in the hands, INVESTIGATIONS, reviewed in the clinical context: July 15: Potassium 4.2 bicarb 18 BUN 26 creatinine 1.29 July 14: Potassium 4.4 BUN 31 creatinine 1.64 pro-calcitonin 0.12 White count 6.2 hemoglobin 11.8 platelets 228 potassium 4.6 BUN 36 creatinine 1.74 EKG tracing personally reviewed by me-normal sinus rhythm. Rate 84 CT abdomen pelvis without contrast: Chronic diverticulosis. Multiple small bowel fluid levels. Other findings noted. Previous labs: Creatinine 2.04 on January 2021. Assessment and plan: -Acute abdominal pain that started yesterday. Small bowel air-fluid levels noted. No obvious fever and chills. Empirically IV Zosyn for possible enteritis/colitis.: Not improving Continue Nothing by mouth. IV Zosyn. NG tube to suction. -COPD, in a previous smoker Albuterol when necessary -Chronic kidney disease stage III from nephrosclerosis Follow renal function -GERD Omeprazole 20 mg twice a day -Rheumatoid arthritis Pain control -Essential hypertension, uncontrolled Start Catapres patch 0.2 -Chronic celiac disease Gluten-free diet -Overactive bladder causing incontinence uses a brief - Colonic diverticulosis, Follow clinically -Metabolic acidosis from renal failure: New diagnosis Start IV bicarbonate drip -Acute kidney injury, prerenal Admission creatinine 1.85. Currently 1.29 Change IV fluids to IV bicarbonate drip.. IV Zosyn. NG tube. Catapres patch added for blood pressure. Discussed with patient. Follow labs.
[2021-07-16] MEDS: DEXTROSE 5% IN WATER 1,000 ML with SODIUM BICARB (1 MEQ/ML) 100 ML IV SCH ×2 (01:36→12:36)
[2021-07-16] MEDS: MORPHINE SULFATE 4 MG/ML SYRINGE IV PRN ×2 (03:34→21:54)
[2021-07-16 07:28] LABS: African American GFR (CKD) 43 (>60 ml/min/1.73 sqM); Anion Gap 7 mmol/L; Blood Urea Nitrogen 25 mg/dL (7-17); Calcium 8.5 mg/dL (8.4-10.2); Carbon Dioxide 26 mmol/L (22-30); Chloride 100 mmol/L (98-107); Glucose 135 mg/dL (74-99); Non-African American GFR(CKD) 37 (>60 ml/min/1.73 sqM); Potassium 3.3 mmol/L (3.5-5.1); Sodium 133 mmol/L (137-145)
[2021-07-16] MEDS: PANTOPRAZOLE 40 MG/10 ML VIAL IVP SCH (07:36)
[2021-07-16] MEDS: ENOXAPARIN 30 MG/0.3 ML SYRINGE SQ SCH (07:36)
[2021-07-16] MEDS: OXYBUTYNIN CHLORIDE 5 MG TAB PO SCH ×2 (07:38→20:42)
[2021-07-16] MEDS: DICYCLOMINE 10 MG CAP PO SCH ×4 (07:38→20:42)
[2021-07-16] MEDS: PIPERACILLIN-TAZOBACTAM 3.375 GM in SODIUM CHLORIDE 0.9% 100 ML IVPB SCH ×2 (07:39→17:41)
--- NOTE | 2021-07-16 16:34 | P.PN ---
Subjective Progress Note Date: 07/16/21 Principal diagnosis: Ileus Patient was confused this morning. Nasogastric tube was mostly pulled out. At that time the nursing staff removed at the rest the way. Attempts at replacing a unsuccessful. She has bowel sounds. Denies abdominal pain. No nausea or vomiting. No flatus or bowel movement however. Tolerating sips of clears. Objective - Vital Signs Vital signs: Vital Signs Temp 98.0 F 07/16/21 12:04 Pulse 86 07/16/21 12:04 Resp 18 07/16/21 12:04 BP 124/77 07/16/21 12:04 Pulse Ox 90 L 07/16/21 12:04 Intake & Output 07/15/21 07/16/21 07/16/21 18:59 06:59 18:59 Intake Total 600 120 Output Total 100 Balance 500 120 Weight 43.091 kg Intake: Intake, IV Titration 600 Amount Dextrose 5% in Water 1, 500 000 ml @ 100 mls/hr IV . Q11H [facility] with Sodium Bicarb (1 Meq/ml) 100 ml Rx#:[id number] Piperacillin-Tazobactam 3 100 .375 gm In Sodium Chloride 0.9% 100 ml @ 25 mls/hr IVPB Q12HR [facility] Rx #:[id number] Oral 0 120 Output: Gastric Drainage 100 Other: Voiding Method Diaper Diaper Bedpan Diaper # Voids 1 2 - Exam Abdomen: Soft, mild distention, no tenderness - Labs CBC & Chem 7: 07/13/21 07:49 07/16/21 06:40 Labs: Abnormal Lab Results - Last 24 Hours (Table) 07/16/21 Range/Units 06:40 Sodium 133 L (137-145) mmol/L Potassium 3.3 L (3.5-5.1) mmol/L BUN 25 H (7-17) mg/dL Creatinine 1.30 H (0.52-1.04) mg/dL Glucose 135 H (74-99) mg/dL Assessment and Plan (1) Ileus Narrative/Plan: Patient doing well at this time. Continue clear liquid diet. Await return bowel function. Will follow. Current Visit: Yes Status: Acute Code(s): K56.7 - ILEUS, UNSPECIFIED SNOMED Code(s): 160097615
[2021-07-16] MEDS ORDERED: POTASSIUM CHLORIDE ER 20 MEQ TAB.ER PO STA (18:38)
--- NOTE | 2021-07-16 18:40 | P.PN ---
Progress Note - Text Progress Note Date: 07/16/21 Chief Complaint: Abdominal pain History of presenting complaint: This is a 85-year-old patient of Dr. Johnson. Chronic stable medical conditions include COPD, GERD, rheumatoid arthritis, celiac disease, chronic urinary incontinence, lumbar radiculopathy , diverticulosis. Patient does use a walker. She was admitted here in January 2021 with severe bowel spasms. Patient yesterday after started having increasing abdominal pain across. Leg cramping. Along with nausea vomiting. Not able to keep anything down. [place] hot. Normally has a bowel movement every other day. Had a bowel movement yesterday. No improvement. Computed tomography scan of the ER showed air-fluid levels. Made nothing by mouth. Surgery consulted. Admitted with acute possible colitis with severe bowel spasms. July 14: Slurring significant abdominal pain. Scheduled Bentyl added. Con tinue with IV fluids. IV Zosyn. Remains nothing by mouth. July 15: NG tube was placed yesterday for small bowel obstruction. Output noted. Abdominal distention better. Decreased abdominal pain. Laying in bed. Empirically and IV Zosyn. Catapres patch 0.2 started for uncontrolled blood pressure. July 16: NG tube court accidentally pulled out. Started on clear liquids by surgery. Some abdominal distention present. Did pass flatus. Laying in bed. No nausea vomiting Active Medications Clonidine HCl (Clonidine 0.2 Mg/24hr Patch) 1 patch TRANSDERM Q7D [facility] Last Admin: 07/15/21 09:50 Dose: 1 patch Documented by: Dicyclomine HCl (Dicyclomine 10 Mg Cap) 10 mg PO QID [facility] Last Admin: 07/16/21 17:37 Dose: 10 mg Documented by: Enoxaparin Sodium (Enoxaparin 30 Mg/0.3 Ml Syringe) 30 mg SQ DAILY [facility] Last Admin: 07/16/21 07:36 Dose: 30 mg Documented by: Sodium Bicarbonate 100 ml/ (Dextrose/Water) 1,100 mls @ 100 mls/hr IV .Q11H [facility] Last Admin: 07/16/21 12:36 Dose: 100 mls/hr Documented by: Piperacillin Sod/Tazobactam (Sod 3.375 gm/ Sodium Chloride) 100 mls @ 25 mls/hr IVPB Q8HR [facility]; Protocol Last Admin: 07/16/21 17:41 Dose: 25 mls/hr Documented by: Morphine Sulfate (Morphine Sulfate 4 Mg/Ml Syringe) 4 mg IV Q4HR PRN PRN Reason: Severe Pain Last Admin: 07/16/21 03:34 Dose: 4 mg Documented by: Naloxone HCl (Naloxone 0.4 Mg/Ml 1 Ml Vial) 0.2 mg IV Q2M PRN PRN Reason: Opioid Reversal Ondansetron HCl (Ondansetron 4 Mg/2 Ml Vial) 4 mg IVP Q8HR PRN PRN Reason: Nausea And Vomiting Last Admin: 07/14/21 08:28 Dose: 4 mg Documented by: Oxybutynin Chloride (Oxybutynin Chloride 5 Mg Tab) 5 mg PO BID [facility] Last Admin: 07/16/21 07:38 Dose: 5 mg Documented by: Pantoprazole Sodium (Pantoprazole 40 Mg/10 Ml Vial) 40 mg IVP DAILY [facility] Last Admin: 07/16/21 07:36 Dose: 40 mg Documented by: Past medical history to include: COPD, GERD, rheumatoid arthritis, questionable stroke, pubic rami fracture, celiac disease, cerebral aneurysm and AAA repair, lumbar radiculopathy, 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 . Does use a walker to get about . Family history: Throat cancer Physical examination: VITAL SIGNS: 98, 86, 18, 124/77, 90% room air GENERAL: Reclining in bed , not in distress EYES: Pupils equal. Conjunctiva normal. HEENT: External appearance of nose and ears normal, oral cavity grossly normal. NECK: JVD not raised; masses not palpable. HEART: First and second heart sounds are normal; no edema. LUNGS: Respiratory rate normal; clear to auscultation. ABDOMEN: Soft, mild tenderness, some distention, no guarding rigidity liver spleen not palpable, no masses palpable. PSYCH: Alert and oriented x3; mood and affect anxious NEUROLOGICAL: Cranial nerves grossly intact; no facial asymmetry, power and sensation grossly intact. MUSCULOSKELETAL: Evidence of arthritis especially in the hands, INVESTIGATIONS, reviewed in the clinical context: July 16: Sodium 133 potassium 3.3 BUN 25 creatinine 1.30 July 15: Potassium 4.2 bicarb 18 BUN 26 creatinine 1.29 July 14: Potassium 4.4 BUN 31 creatinine 1.64 pro-calcitonin 0.12 White count 6.2 hemoglobin 11.8 platelets 228 potassium 4.6 BUN 36 creatinine 1.74 EKG tracing personally reviewed by me-normal sinus rhythm. Rate 84 CT abdomen pelvis without contrast: Chronic diverticulosis. Multiple small bowel fluid levels. Other findings noted. Previous labs: Creatinine 2.04 on January 2021. Assessment and plan: -Acute abdominal pain that started yesterday. Small bowel air-fluid levels noted. No obvious fever and chills. Empirically IV Zosyn for possible enteritis/colitis.: Not improving . IV Zosyn. NG tube fell out today. Started clear liquids. 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 Currently 1.29 DC bipolar. Drip. Start normal saline... IV Zosyn. NG tube fell out clear liquids..
[2021-07-16] MEDS: SODIUM CHLORIDE 0.9% 1,000 ML IV SCH (20:41)
[2021-07-16] MEDS: ONDANSETRON 4 MG/2 ML VIAL IVP PRN (21:54)
[2021-07-17] MEDS: PIPERACILLIN-TAZOBACTAM 3.375 GM in SODIUM CHLORIDE 0.9% 100 ML IVPB SCH ×3 (00:17→16:21)
[2021-07-17] MEDS: SODIUM CHLORIDE 0.9% 1,000 ML IV SCH ×3 (06:28→19:24)
--- NOTE | 2021-07-17 07:56 | XR ---
EXAMINATION TYPE: XR abdomen 2V DATE OF EXAM: 07/17/2021 HISTORY: Pain. Technique: 2 views of the abdomen are submitted. Comparison: 07/14/2021 Findings: There is no convincing evidence of pneumoperitoneum. Persistent dilated small bowel noted measuring up to 4.3 cm versus 3.6 cm previously. There is a pauc ity of air within the colon. Suspect distal small bowel obstruction. Continued progress studies are r ecommended. No mass effects are noted. No renal calcifications are identified. IMPRESSION: 1. Persistent dilated small bowel noted measuring up to 4.3 cm versus 3.6 cm previously. There is a p aucity of air within the colon. Suspect distal small bowel obstruction.
[2021-07-17] MEDS: DICYCLOMINE 10 MG CAP PO SCH ×4 (08:31→19:23)
[2021-07-17] MEDS: OXYBUTYNIN CHLORIDE 5 MG TAB PO SCH ×2 (08:31→19:24)
[2021-07-17] MEDS: PANTOPRAZOLE 40 MG TABLET PO SCH ×2 (08:31→17:28)
[2021-07-17] MEDS: ENOXAPARIN 30 MG/0.3 ML SYRINGE SQ SCH (08:31)
--- NOTE | 2021-07-17 10:00 | P.PN ---
Subjective Progress Note Date: 07/17/21 Principal diagnosis: Ileus Patient says she is having some abdominal pain today. No nausea or vomiting. No bowel movement yet. Abdominal x-rays today show slight increase in small bowel distention. Patient is afebrile. Objective - Vital Signs Vital signs: Vital Signs Temp 97.7 F 07/17/21 05:00 Pulse 90 07/17/21 05:00 Resp 18 07/17/21 05:00 BP 136/81 07/17/21 05:00 Pulse Ox 90 L 07/17/21 05:00 Intake & Output 07/16/21 07/17/21 07/17/21 18:59 06:59 18:59 Intake Total 1520 1536 Balance 1520 1536 Weight 43.091 kg Intake: Intake, IV Titration 1400 1300 Amount Dextrose 5% in Water 1, 1200 000 ml @ 100 mls/hr IV . Q11H [facility] with Sodium Bicarb (1 Meq/ml) 100 ml Rx#:[id number] Piperacillin-Tazobactam 3 100 .375 gm In Sodium Chloride 0.9% 100 ml @ 25 mls/hr IVPB Q12HR [facility] Rx #:[id number] Piperacillin-Tazobactam 3 200 .375 gm In Sodium Chloride 0.9% 100 ml @ 25 mls/hr IVPB Q8HR [facility] Rx# :[id number] Sodium Chloride 0.9% 1, 1200 000 ml @ 100 mls/hr IV . Q10H [facility] Rx#:[id number] Oral 120 236 Other: Voiding Method Bedpan Diaper Diaper Incontinent # Voids 3 2 - Exam Abdomen: Soft, mild distention, mild left-sided tenderness - Labs CBC & Chem 7: 07/13/21 07:49 07/16/21 06:40 Assessment and Plan (1) Ileus Narrative/Plan: 85-year-old female with ileus versus SBO. X-rays show slight increase in small bowel distention. Patient refused additional attempts at nasogastric tube insertion yesterday. Will make nothing by mouth for now. Repeat films tomorrow. If vomiting occurs we'll try to convince the patient again to have nasogastric tube replaced. Current Visit: Yes Status: Acute Code(s): K56.7 - ILEUS, UNSPECIFIED SNOMED Code(s): 898048613
[2021-07-17] MEDS ORDERED: POTASSIUM CHLORIDE ER 20 MEQ TAB.ER PO STA (15:16)
[2021-07-17] MEDS: MORPHINE SULFATE 4 MG/ML SYRINGE IV PRN (15:32)
[2021-07-17] MEDS: ONDANSETRON 4 MG/2 ML VIAL IVP PRN (15:37)
--- NOTE | 2021-07-17 20:19 | P.PN ---
Progress Note - Text Progress Note Date: 07/17/21 Chief Complaint: Abdominal pain History of presenting complaint: This is a 85-year-old patient of Dr. Johnson. Chronic stable medical conditions include COPD, GERD, rheumatoid arthritis, celiac disease, chronic urinary incontinence, lumbar radiculopathy , diverticulosis. Patient does use a walker. She was admitted here in January 2021 with severe bowel spasms. Patient yesterday after started having increasing abdominal pain across. Leg cramping. Along with nausea vomiting. Not able to keep anything down. [place] hot. Normally has a bowel movement every other day. Had a bowel movement yesterday. No improvement. Computed tomography scan of the ER showed air-fluid levels. Made nothing by mouth. Surgery consulted. Admitted with acute possible colitis with severe bowel spasms. July 14: Slurring significant abdominal pain. Scheduled Bentyl added. Con tinue with IV fluids. IV Zosyn. Remains nothing by mouth. July 15: NG tube was placed yesterday for small bowel obstruction. Output noted. Abdominal distention better. Decreased abdominal pain. Laying in bed. Empirically and IV Zosyn. Catapres patch 0.2 started for uncontrolled blood pressure. July 16: NG tube court accidentally pulled out. Started on clear liquids by surgery. Some abdominal distention present. Did pass flatus. Laying in bed. No nausea vomiting July 17: Patient still having abdominal distention. Abdominal pain. Some flatus. Abdominal x-ray reviewed. Significant air-fluid levels. Discussed with patient and at bedside. On the option is to try NG tube again. Patient is reluctant but agreed. Otherwise next definitely surgery. Discussed with Dr. Thomas from surgery. He concurs Active Medications Clonidine HCl (Clonidine 0.2 Mg/24hr Patch) 1 patch TRANSDERM Q7D [facility] Last Admin: 07/15/21 09:50 Dose: 1 patch Documented by: Dicyclomine HCl (Dicyclomine 10 Mg Cap) 10 mg PO QID [facility] Last Admin: 07/17/21 19:23 Dose: 10 mg Documented by: Enoxaparin Sodium (Enoxaparin 30 Mg/0.3 Ml Syringe) 30 mg SQ DAILY [facility] Last Admin: 07/17/21 08:31 Dose: 30 mg Documented by: Piperacillin Sod/Tazobactam (Sod 3.375 gm/ Sodium Chloride) 100 mls @ 25 mls/hr IVPB Q8HR [facility]; Protocol Last Admin: 07/17/21 16:21 Dose: 25 mls/hr Documented by: Sodium Chloride (Saline 0.9%) 1,000 mls @ 100 mls/hr IV .Q10H [facility] Last Admin: 07/17/21 19:24 Dose: 100 mls/hr Documented by: Morphine Sulfate (Morphine Sulfate 4 Mg/Ml Syringe) 4 mg IV Q4HR PRN PRN Reason: Severe Pain Last Admin: 07/17/21 15:32 Dose: 2 mg Documented by: Naloxone HCl (Naloxone 0.4 Mg/Ml 1 Ml Vial) 0.2 mg IV Q2M PRN PRN Reason: Opioid Reversal Ondansetron HCl (Ondansetron 4 Mg/2 Ml Vial) 4 mg IVP Q8HR PRN PRN Reason: Nausea And Vomiting Last Admin: 07/17/21 15:37 Dose: 4 mg Documented by: Oxybutynin Chloride (Oxybutynin Chloride 5 Mg Tab) 5 mg PO BID [facility] Last Admin: 07/17/21 19:24 Dose: 5 mg Documented by: Pantoprazole Sodium (Pantoprazole 40 Mg Tablet) 40 mg PO AC-BID [facility] Last Admin: 07/17/21 17:28 Dose: Not Given Documented by: Past medical history to include: COPD, GERD, rheumatoid arthritis, questionable stroke, pubic rami fracture, celiac disease, cerebral aneurysm and AAA repair, lumbar radiculopathy, 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 . Does use a walker to get about . Family history: Throat cancer Physical examination: VITAL SIGNS: 97.5, 98, 18, 134/68, 90% room air GENERAL: Reclining in bed , uncomfortable EYES: Pupils equal. Conjunctiva normal. HEENT: External appearance of nose and ears normal, oral cavity grossly normal. NECK: JVD not raised; masses not palpable. HEART: First and second heart sounds are normal; no edema. LUNGS: Respiratory rate normal; clear to auscultation. ABDOMEN: Soft, some tenderness, distention, no guarding rigidity liver spleen not palpable, no masses palpable. Bowel sounds present. PSYCH: Alert and oriented x3; mood and affect anxious MUSCULOSKELETAL: Evidence of arthritis especially in the hands, INVESTIGATIONS, reviewed in the clinical context: Chest x-ray film personally reviewed by me-[July 17]: Multiple air fluid levels. July 16: Sodium 133 potassium 3.3 BUN 25 creatinine 1.30 July 15: Potassium 4.2 bicarb 18 BUN 26 creatinine 1.29 July 14: Potassium 4.4 BUN 31 creatinine 1.64 pro-calcitonin 0.12 White count 6.2 hemoglobin 11.8 platelets 228 potassium 4.6 BUN 36 creatinine 1.74 EKG tracing personally reviewed by me-normal sinus rhythm. Rate 84 CT abdomen pelvis without contrast: Chronic diverticulosis. Multiple small bowel fluid levels. Other findings noted. Previous labs: Creatinine 2.04 on January 2021. Assessment and plan: -Acute abdominal pain that started yesterday. Small bowel air-fluid levels noted. No obvious fever and chills. Empirically IV Zosyn for possible enteritis/colitis.: Not improving . IV Zosyn. We will try NG tube placement today. 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 Currently 1.29 IV fluids. IV Zosyn. Discussed at length with the patient and . Agreeable to NG tube. Discussed with Dr. Thomsa. It doesn't improve then we'll proceed to surgery. Total time spent about 40 minutes with over 25% discussion.
[2021-07-18] MEDS: PIPERACILLIN-TAZOBACTAM 3.375 GM in SODIUM CHLORIDE 0.9% 100 ML IVPB SCH ×3 (01:31→15:33)
[2021-07-18] MEDS: ONDANSETRON 4 MG/2 ML VIAL IVP PRN ×2 (01:35→13:26)
[2021-07-18] MEDS: MORPHINE SULFATE 4 MG/ML SYRINGE IV PRN ×3 (01:36→15:32)
[2021-07-18] MEDS: SODIUM CHLORIDE 0.9% 1,000 ML IV SCH (05:30)
--- NOTE | 2021-07-18 07:33 | XR ---
EXAMINATION TYPE: XR abdomen 2V DATE OF EXAM: 07/18/2021 HISTORY: Pain. Technique: 3 views of the abdomen are submitted. Comparison: None. Findings: There is no convincing evidence of pneumoperitoneum. Again noted are dilated loops of small bowel with slight improvement in most dilated loop of the smal l bowel within the left hemiabdomen now measuring 4 cm versus 4.3 cm previously. Small amount of gas seen throughout the colon. No sizable air-fluid levels are seen. No mass effects are noted. No renal calcifications are identified. IMPRESSION: 1. Slight interval improvement in the appearance of the dilated small bowel.
[2021-07-18] MEDS: PANTOPRAZOLE 40 MG TABLET PO SCH ×2 (08:07→15:28)
[2021-07-18] MEDS: DICYCLOMINE 10 MG CAP PO SCH ×4 (08:07→21:21)
[2021-07-18] MEDS: ENOXAPARIN 30 MG/0.3 ML SYRINGE SQ SCH (08:08)
[2021-07-18] MEDS: OXYBUTYNIN CHLORIDE 5 MG TAB PO SCH ×2 (08:08→21:21)
--- NOTE | 2021-07-18 09:29 | P.PN ---
Subjective Progress Note Date: 07/18/21 Principal diagnosis: Ileus Patient complaining of mild abdominal pain and mild nausea today. Attempts at nasogastric tube placement yesterday were unsuccessful. No flatus or bowel movement. This morning's x-rays show slight improvement. Objective - Vital Signs Vital signs: Vital Signs Temp 97.4 F L 07/18/21 05:00 Pulse 85 07/18/21 05:00 Resp 16 07/18/21 05:00 BP 159/85 07/18/21 05:00 Pulse Ox 94 L 07/18/21 05:00 Intake & Output 07/17/21 07/18/21 07/18/21 18:59 06:59 18:59 Intake Total 1300 Balance 1300 Intake: Intake, IV Titration 1300 Amount Piperacillin-Tazobactam 3 100 .375 gm In Sodium Chloride 0.9% 100 ml @ 25 mls/hr IVPB Q8HR [facility] Rx# :[id number] Sodium Chloride 0.9% 1, 1200 000 ml @ 100 mls/hr IV . Q10H [facility] Rx#:[id number] Other: Voiding Method Diaper Incontinent # Voids 2 1 - Exam Abdomen: Soft, mild distention, mild diffuse tenderness - Labs CBC & Chem 7: 07/13/21 07:49 07/16/21 06:40 Assessment and Plan (1) Ileus Narrative/Plan: Patient with x-rays suggesting persistent bowel obstruction. Keep nothing by mouth for now. Patient may require exporter laparotomy. We'll reassess tomorrow. Current Visit: Yes Status: Acute Code(s): K56.7 - ILEUS, UNSPECIFIED SNOMED Code(s): 101274662
--- NOTE | 2021-07-18 11:27 | P.PN ---
Progress Note - Text Progress Note Date: 07/18/21 Chief Complaint: Abdominal pain History of presenting complaint: This is a 85-year-old patient of Dr. Johnson. Chronic stable medical conditions include COPD, GERD, rheumatoid arthritis, celiac disease, chronic urinary incontinence, lumbar radiculopathy , diverticulosis. Patient does use a walker. She was admitted here in January 2021 with severe bowel spasms. Patient yesterday after started having increasing abdominal pain across. Leg cramping. Along with nausea vomiting. Not able to keep anything down. [place] hot. Normally has a bowel movement every other day. Had a bowel movement yesterday. No improvement. Computed tomography scan of the ER showed air-fluid levels. Made nothing by mouth. Surgery consulted. Admitted with acute possible colitis with severe bowel spasms. July 14: Slurring significant abdominal pain. Scheduled Bentyl added. Con tinue with IV fluids. IV Zosyn. Remains nothing by mouth. July 15: NG tube was placed yesterday for small bowel obstruction. Output noted. Abdominal distention better. Decreased abdominal pain. Laying in bed. Empirically and IV Zosyn. Catapres patch 0.2 started for uncontrolled blood pressure. July 16: NG tube court accidentally pulled out. Started on clear liquids by surgery. Some abdominal distention present. Did pass flatus. Laying in bed. No nausea vomiting July 17: Patient still having abdominal distention. Abdominal pain. Some flatus. Abdominal x-ray reviewed. Significant air-fluid levels. Discussed with patient and at bedside. On the option is to try NG tube again. Patient is reluctant but agreed. Otherwise next definitely surgery. Discussed with Dr. Thomas from surgery. He concurs July 18: Nursing staff unable to place NG tube. Abdominal distention. Nausea vomiting. No flatus or BM. Patient will need surgical intervention. Discussed with patient. A bit apprehensive. Patient counseled Active Medications Clonidine HCl (Clonidine 0.2 Mg/24hr Patch) 1 patch TRANSDERM Q7D [facility] Last Admin: 07/15/21 09:50 Dose: 1 patch Documented by: Dicyclomine HCl (Dicyclomine 10 Mg Cap) 10 mg PO QID [facility] Last Admin: 07/18/21 08:07 Dose: 10 mg Documented by: Enoxaparin Sodium (Enoxaparin 30 Mg/0.3 Ml Syringe) 30 mg SQ DAILY [facility] Last Admin: 07/18/21 08:08 Dose: 30 mg Documented by: Piperacillin Sod/Tazobactam (Sod 3.375 gm/ Sodium Chloride) 100 mls @ 25 mls/hr IVPB Q8HR [facility]; Protocol Last Admin: 07/18/21 08:08 Dose: 25 mls/hr Documented by: Sodium Chloride (Saline 0.9%) 1,000 mls @ 100 mls/hr IV .Q10H [facility] Last Admin: 07/18/21 05:30 Dose: 100 mls/hr Documented by: Morphine Sulfate (Morphine Sulfate 4 Mg/Ml Syringe) 4 mg IV Q4HR PRN PRN Reason: Severe Pain Last Admin: 07/18/21 08:05 Dose: 4 mg Documented by: Naloxone HCl (Naloxone 0.4 Mg/Ml 1 Ml Vial) 0.2 mg IV Q2M PRN PRN Reason: Opioid Reversal Ondansetron HCl (Ondansetron 4 Mg/2 Ml Vial) 4 mg IVP Q8HR PRN PRN Reason: Nausea And Vomiting Last Admin: 07/18/21 01:35 Dose: 4 mg Documented by: Oxybutynin Chloride (Oxybutynin Chloride 5 Mg Tab) 5 mg PO BID [facility] Last Admin: 07/18/21 08:08 Dose: 5 mg Documented by: Pantoprazole Sodium (Pantoprazole 40 Mg Tablet) 40 mg PO AC-BID [facility] Last Admin: 07/18/21 08:07 Dose: 40 mg Documented by: Past medical history to include: COPD, GERD, rheumatoid arthritis, questionable stroke, pubic rami fracture, celiac disease, cerebral aneurysm and AAA repair, lumbar radiculopathy, 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 . Does use a walker to get about . Family history: Throat cancer Physical examination: VITAL SIGNS: 97.4, 95, 16, 159.85, 94% on 2 L GENERAL: Reclining in bed , awake EYES: Pupils equal. Conjunctiva normal. HEENT: External appearance of nose and ears normal, oral cavity grossly normal. NECK: JVD not raised; masses not palpable. HEART: First and second heart sounds are normal; no edema. LUNGS: Respiratory rate normal; clear to auscultation. ABDOMEN: Soft, some tenderness, distention, no guarding rigidity liver spleen not palpable, no masses palpable. Bowel sounds present. PSYCH: Alert and oriented x3; mood and affect anxious MUSCULOSKELETAL: Evidence of arthritis especially in the hands, INVESTIGATIONS, reviewed in the clinical context: Chest x-ray film personally reviewed by me-[July 17]: Multiple air fluid levels. July 16: Sodium 133 potassium 3.3 BUN 25 creatinine 1.30 July 15: Potassium 4.2 bicarb 18 BUN 26 creatinine 1.29 July 14: Potassium 4.4 BUN 31 creatinine 1.64 pro-calcitonin 0.12 White count 6.2 hemoglobin 11.8 platelets 228 potassium 4.6 BUN 36 creatinine 1.74 EKG tracing personally reviewed by me-normal sinus rhythm. Rate 84 CT abdomen pelvis without contrast: Chronic diverticulosis. Multiple small bowel fluid levels. Other findings noted. Previous labs: Creatinine 2.04 on January 2021. Assessment and plan: -Acute abdominal pain that started yesterday. Small bowel air-fluid levels noted. No obvious fever and chills. Empirically IV Zosyn for possible enteritis/colitis.: Not improving . IV Zosyn. NG tube could not be replaced. After multiple attempts. 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 Currently 1.29 IV fluids. IV Zosyn. As multiple attempts at NG tube failed. Surgical intervention is the only option left. Discussed with patient.
[2021-07-18 14:08] LABS: Basophils # (A) 0.01 X 10*3/uL (0.00-0.10); Basophils % (A) 0.2 %; Eosinophils # (A) 0.05 X 10*3/uL (0.04-0.35); Eosinophils % (A) 0.9 %; HCT 34.9 % (37.2-46.3); HGB 10.8 g/dL (12.0-15.0); Immature Grans, Automated 0.2 %; Lymphocytes # (A) 0.98 X 10*3/uL (0.90-5.00); Lymphocytes % (A) 17.5 %; MCH 28.9 pg (27.0-32.0); MCHC 30.9 g/dL (32.0-37.0); MCV 93.3 fL (80.0-97.0); Mean Platelet Volume 9.2 fL (9.5-12.2); Monocytes # (A) 0.48 X 10*3/uL (0.20-1.00); Monocytes % (A) 8.6 %; NRBC Per 100 WBC 0 /100 WBCS (0.0-0.0); Neutrophils # (A) 4.08 X 10*3/uL (1.80-7.70); Neutrophils % (A) 72.6 %; Platelet Count 234 X 10*3/uL (140-440); RBC 3.74 X 10*6/uL (4.10-5.20); RDW 13.8 % (11.5-14.5); WBC 5.61 X 10*3/uL (4.50-10.00)
[2021-07-18 14:23] LABS: African American GFR (CKD) 41.5 (60.0-200.0); BUN/Creat Ratio 17.61 Ratio (12.00-20.00); Blood Urea Nitrogen 23.6 mg/dL (9.0-27.0); Calcium 7.8 mg/dL (8.7-10.3); Carbon Dioxide 21.2 mmol/L (20.0-27.5); Non-African American GFR(CKD) 35.8 (60.0-200.0); Potassium 3.8 mmol/L (3.5-5.5)
[2021-07-19] MEDS: PIPERACILLIN-TAZOBACTAM 3.375 GM in SODIUM CHLORIDE 0.9% 100 ML IVPB SCH ×3 (00:24→21:38)
[2021-07-19] MEDS: SODIUM CHLORIDE 0.9% 1,000 ML IV SCH ×2 (00:24→08:30)
[2021-07-19] MEDS: MORPHINE SULFATE 4 MG/ML SYRINGE IV PRN ×2 (02:18→21:39)
[2021-07-19 06:11] LABS: African American GFR (CKD) 37 (>60 ml/min/1.73 sqM); Anion Gap 8 mmol/L; Blood Urea Nitrogen 29 mg/dL (7-17); Calcium 8.4 mg/dL (8.4-10.2); Carbon Dioxide 23 mmol/L (22-30); Chloride 110 mmol/L (98-107); Glucose 69 mg/dL (74-99); Non-African American GFR(CKD) 32 (>60 ml/min/1.73 sqM); Potassium 4.4 mmol/L (3.5-5.1); Sodium 141 mmol/L (137-145)
[2021-07-19] MEDS: DICYCLOMINE 10 MG CAP PO SCH ×4 (08:04→21:04)
[2021-07-19] MEDS: ENOXAPARIN 30 MG/0.3 ML SYRINGE SQ SCH ×2 (08:04→13:16)
[2021-07-19] MEDS: OXYBUTYNIN CHLORIDE 5 MG TAB PO SCH ×2 (08:04→21:04)
[2021-07-19] MEDS: PANTOPRAZOLE 40 MG TABLET PO SCH ×2 (08:04→17:31)
[2021-07-19 08:07] LABS: Glucose,Whole Blood 68 mg/dL (75-99)
[2021-07-19] MEDS ORDERED: DEXTROSE 50% SYRINGE 50 ML IVP STA (08:16)
[2021-07-19] MEDS ORDERED: GLUCAGON 1 MG/ML VIAL IVP STA (08:16)
[2021-07-19] MEDS: DEXTROSE 5% IN WATER 1,000 ML IV SCH ×2 (08:30→17:31)
--- NOTE | 2021-07-19 11:09 | P.PN ---
Subjective Progress Note Date: 07/19/21 CHIEF COMPLAINT: Abdominal pain HISTORY OF PRESENT ILLNESS: Patient had NG tube reinserted yesterday. She was having increase in vomiting and abdominal pain. She has had 300 mL of bilious output through the NG tube. Patient is currently scheduled for exploratory laparotomy with lysis of adhesions on Monday. Patient reports some improvement in her abdominal pain after the NG tube place. She does still have lower abdominal tenderness on exam. She denies any flatus or BM. Afebrile. Sodium 141 potassium 4.4 creatinine 1.8 glucose 69. Patient did receive 50ml of dextrose and fluids have been adjusted to dextrose per medicine service Patient seen and examined with Dr. hicks PHYSICAL EXAM: VITAL SIGNS: Reviewed. GENERAL: Well-developed in no acute distress. HEENT: No sclera icterus. Extraocular movements grossly intact. Moist buccal mucosa. Head is atraumatic, normocephalic. ABDOMEN: Mildly distended. Tenderness to palpation of the lower abdomen NEUROLOGIC: Alert and oriented. Cranial nerves II through XII grossly intact. ASSESSMENT: 1. Small bowel obstruction 2. Abdominal pain PLAN: -Exploratory laparotomy with lysis of adhesions scheduled for Monday, [address] hicks -Continue NG tube for decompression -Keep patient nothing by mouth -Continue IV fluids -Continue supportive care -Continue pain medication as needed Physician Academic Specialist note has been reviewed by physician. Signing provider agrees with the documented findings, assessment, and plan of care. Objective - Vital Signs Vital signs: Vital Signs Temp 97.6 F 07/19/21 04:36 Pulse 83 07/19/21 04:36 Resp 20 07/19/21 04:36 BP 137/72 07/19/21 04:36 Pulse Ox 93 L 07/19/21 04:36 Intake & Output 07/18/21 07/19/21 07/19/21 18:59 06:59 18:59 Intake Total 0 600 Output Total 800 300 Balance -800 300 Intake: Intake, IV Titration 600 Amount Piperacillin-Tazobactam 3 100 .375 gm In Sodium Chloride 0.9% 100 ml @ 25 mls/hr IVPB Q8HR [facility] Rx# :[id number] Sodium Chloride 0.9% 1, 500 000 ml @ 100 mls/hr IV . Q10H [facility] Rx#:[id number] Oral 0 0 Output: Gastric Drainage 800 300 Other: Voiding Method Diaper Diaper Incontinent Incontinent # Voids 2 3 - Labs CBC & Chem 7: 07/18/21 06:46 07/19/21 05:33 Labs: Abnormal Lab Results - Last 24 Hours (Table) 07/18/21 07/18/21 07/19/21 Range/Units 06:46 06:46 05:33 RBC 3.74 L (4.10-5.20) X 10*6/uL Hgb 10.8 L (12.0-15.0) g/dL Hct 34.9 L (37.2-46.3) % MCHC 30.9 L (32.0-37.0) g/dL MPV 9.2 L (9.5-12.2) fL Chloride 112 H 110 H (96-109) mmol/L BUN 29 H (7-17) mg/dL Creatinine 1.48 H (0.52-1.04) mg/dL Est GFR (CKD-EPI)AfAm 41.5 L (60.0-200.0) Est GFR (CKD-EPI)NonAf 35.8 L (60.0-200.0) Glucose 69 L (74-99) mg/dL POC Glucose (mg/dL) (75-99) mg/dL Calcium 7.8 L (8.7-10.3) mg/dL 07/19/21 Range/Units 08:06 RBC (4.10-5.20) X 10*6/uL Hgb (12.0-15.0) g/dL Hct (37.2-46.3) % MCHC (32.0-37.0) g/dL MPV (9.5-12.2) fL Chloride (96-109) mmol/L BUN (7-17) mg/dL Creatinine (0.52-1.04) mg/dL Est GFR (CKD-EPI)AfAm (60.0-200.0) Est GFR (CKD-EPI)NonAf (60.0-200.0) Glucose (74-99) mg/dL POC Glucose (mg/dL) 68 L (75-99) mg/dL Calcium (8.7-10.3) mg/dL
--- NOTE | 2021-07-19 14:55 | IR ---
EXAMINATION TYPE: IR cvc insert >=5 years DATE OF EXAM: 07/19/2021 COMPARISON: NONE CLINICAL HISTORY: Ileus, bowel obstruction Needs long-term intravenous access for total parenteral nu trition. PROCEDURE: Hand hygiene obtained with soap and water and alcohol-based hand rub. After informed consent, the skin overlying the right brachial vein was localized with ultrasound and noted to be compressible and patent. An ultrasound image was obtained and submitted on the patient's chart. The overlying skin was prepped and draped and Lidocaine was used for local anesthesia. A sk in torito was made with a scalpel. Access was gained to the vein under ultrasound guidance with a 21 g auge needle and a 0.018 inch wire was advanced. Access site was dilated with Peel-Away sheath and ca theter tailored to the appropriate length and advanced such that the distal tip is at the cavoatrial junction. Spot image was obtained verifying placement. Catheter was fixed to the skin and a sterile dressing was placed following hemostasis. Catheter was aspirated and flushed with saline. Patient was discharged in stable condition without complication. Maximal barrier technique is utilized. Ultr asound image is documented on the chart. Ultrasound used with sterile technique. Fluoro time and fluoroscopic images submitted to document procedure: 37 intraoperative C-arm images, 0.4 minutes fluoroscopy time IMPRESSION: STATUS POST ULTRASOUND AND FLUOROSCOPIC GUIDED PICC LINE PLACEMENT, READY FOR USE. THIS PROCEDURE WAS PERFORMED BY THE UNDERSIGNED.
[2021-07-19 15:11] LABS: Magnesium 1.9 mg/dL (1.6-2.3); Phosphorus 4.2 mg/dL (2.5-4.5)
--- NOTE | 2021-07-19 15:48 | P.NPCON ---
History of Present Illness - Reason for Consult acute renal failure - History of Present Illness Patient is a 85-year-old female with history of chronic kidney disease NKF stage III with baseline creatinine around 1.3-1.5 mg/dL. Etiology is nephrosclerosis. Patient is admitted to the hospital with complaints of abdominal pain. She has bowel obstruction and currently has an NG tube in place. Patient needs a PICC line and nephrology clearance is needed [place] at Serum creatinine was 1.85 mg/dL on initial admission and has now decreased to 1.3-1.4 mg/dL. Patient is currently maintained on IV fluids/TPN Good urine output, not measured Blood pressure not low Review of Systems As per HPI Past Medical History Past Medical History: Cancer, COPD, CVA/TIA, GERD/Reflux, Musculoskeletal Disorder, Neurologic Disorder, Pneumonia, Renal Disease, Rheumatoid Arthritis (RA), Skin Disorder Additional Past Medical History / Comment(s): 2016 FALL/LT HIP FX(sx). 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 KIDNEY DX, PAD,"difficulty swallowing", uti-ecoli 2016, over active bladder wears a brief. ESRD History of Any Multi-Drug Resistant Organisms: None Reported Past Surgical History: Appendectomy, Cholecystectomy, Hysterectomy, Orthopedic Surgery Additional Past Surgical History / Comment(s): brain aneursym with surgery and angioplasty, aaa repair also, jani cataract, skin ca removed, lt breast bx and cyst removed, d&c, colonoscopy, orif lt hip, ORIF RT HIP, EGD Past Anesthesia/Blood Transfusion Reactions: No Reported Reaction Past Psychological History: No Psychological Hx Reported Additional Psychological History / Comment(s): . Smoking Status: Never smoker Past Alcohol Use History: None Reported Additional Past Alcohol Use History / Comment(s): started smoking at age 17, quit 2002, was smoking 5 cig per day Past Drug Use History: None Reported - Past Family History Mother Additional Family Medical History / Comment(s): BOWEL PROBLEMS/DIVERTICULAR DIEASE. LIVED TO BE 96 YEARS OLD Father History Unknown: Yes Additional Family Medical History / Comment(s): IN HIS SLEEEP AT AGE 86 Sister(s) Family Medical History: Cancer Additional Family Medical History / Comment(s): COLON Brother(s) Family Medical History: Cancer Additional Family Medical History / Comment(s): THROAT CANCER Medications and Allergies Home Medications Medication Instructions Recorded Confirmed Type Omeprazole 20 mg PO AC-BID #60 cap 06/30/20 07/12/21 Rx Oxybutynin Chloride [Ditropan] 5 mg PO BID #60 tab 06/30/20 07/12/21 Rx Allergies Allergy/AdvReac Type Severity Reaction Status Date / Time gluten Allergy Unknown Verified 07/12/21 18:19 codeine AdvReac Nausea & Verified 07/12/21 18:19 Vomiting Physical Exam Vitals: Vital Signs Temp Pulse Resp BP Pulse Ox 07/19/21 11:08 97.4 F L 92 14 150/74 90 L 07/19/21 04:36 97.6 F 83 20 137/72 93 L 07/19/21 01:34 96 20 153/88 07/18/21 21:00 98.1 F 100 20 195/99 93 L Intake and Output 07/19/21 07/19/21 07/19/21 06:59 14:59 22:59 Intake Total 600 Output Total 300 Balance 300 Intake: Intake, IV Titration 600 Amount Piperacillin-Tazobactam 3 100 .375 gm In Sodium Chloride 0.9% 100 ml @ 25 mls/hr IVPB Q8HR [facility] Rx# :[id number] Sodium Chloride 0.9% 1, 500 000 ml @ 100 mls/hr IV . Q10H [facility] Rx#:[id number] Oral 0 Output: Gastric Drainage 300 Other: Voiding Method Diaper Incontinent # Voids 3 Weight 43.091 kg Patient is comfortable, awake, not in any acute distress NG tube in place Abdomen is soft Examination of the heart S1 and S2 Examination lungs bilateral breath sounds are heard Examination lower extremities shows no evidence of edema Results - Lab Results Most recent lab results Calcium 8.4 mg/dL (8.4-10.2) 07/19/21 05:33 Phosphorus 4.2 mg/dL (2.5-4.5) 07/19/21 05:33 Magnesium 1.9 mg/dL (1.6-2.3) 07/19/21 05:33 07/18/21 06:46 07/19/21 05:33 Assessment and Plan Assessment: 1. Acute kidney injury prerenal currently improved with IV hydration UA shows 1+ protein. Computed tomography scan shows no evidence of hydronephrosis, although fullness of bilateral renal pelvis noted. 2. Chronic kidney disease NKF stage IIIB with baseline creatinine 1.3-1.5 mg/dL. Etiology nephrosclerosis. 3. Bowel obstruction being followed by general surgery, currently with NG tube in place 4. Rule out urine retention Plan: Continue IV hydration Check lab scan and rule out urine retention Okay to proceed with PICC line in dominant arm.
[2021-07-19] MEDS: 1: MVI, ADULT NO.4 WITH VIT K 10 ML, TRACE (CONC-1ML/DOSE) 1 ML in AMINO ACID 5%-D20W+LY IV SCH ×3 (16:30)
[2021-07-19 16:49] LABS: Glucose,Whole Blood 155 mg/dL (75-99)
--- NOTE | 2021-07-19 20:47 | P.PN ---
Progress Note - Text Progress Note Date: 07/19/21 Chief Complaint: Abdominal pain History of presenting complaint: This is a 85-year-old patient of Dr. Johnson. Chronic stable medical conditions include COPD, GERD, rheumatoid arthritis, celiac disease, chronic urinary incontinence, lumbar radiculopathy , diverticulosis. Patient does use a walker. She was admitted here in January 2021 with severe bowel spasms. Patient yesterday after started having increasing abdominal pain across. Leg cramping. Along with nausea vomiting. Not able to keep anything down. Hematite hot. Normally has a bowel movement every other day. Had a bowel movement yesterday. No improvement. Computed tomography scan of the ER showed air-fluid levels. Made nothing by mouth. Surgery consulted. Admitted with acute possible colitis with severe bowel spasms. July 14: Slurring significant abdominal pain. Scheduled Bentyl added. Con tinue with IV fluids. IV Zosyn. Remains nothing by mouth. July 15: NG tube was placed yesterday for small bowel obstruction. Output noted. Abdominal distention better. Decreased abdominal pain. Laying in bed. Empirically and IV Zosyn. Catapres patch 0.2 started for uncontrolled blood pressure. July 16: NG tube court accidentally pulled out. Started on clear liquids by surgery. Some abdominal distention present. Did pass flatus. Laying in bed. No nausea vomiting July 17: Patient still having abdominal distention. Abdominal pain. Some flatus. Abdominal x-ray reviewed. Significant air-fluid levels. Discussed with patient and at bedside. On the option is to try NG tube again. Patient is reluctant but agreed. Otherwise next definitely surgery. Discussed with Dr. Thomas from surgery. He concurs July 18: Nursing staff unable to place NG tube. Abdominal distention. Nausea vomiting. No flatus or BM. Patient will need surgical intervention. Discussed with patient. A bit apprehensive. Patient counseled July 19: Patient was hypoglycemic this morning. Ordered amp of D50. 1 mg of glucagon IV. And D5W. Earlier patient's has spoken to Dr. Stauffer and surgery has been postponed for at least couple of days depending how patient does with NG tube. About 3 and a cc was obtained overnight. Decreased abdominal pain. No factors or BM. Had a very lengthy discussion with the patient's and the patient the bedside. PICC line and TPN ordered Active Medications Clonidine HCl (Clonidine 0.2 Mg/24hr Patch) 1 patch TRANSDERM Q7D [facility] Last Admin: 07/15/21 09:50 Dose: 1 patch Documented by: Dicyclomine HCl (Dicyclomine 10 Mg Cap) 10 mg PO QID [facility] Last Admin: 07/19/21 17:31 Dose: Not Given Documented by: Enoxaparin Sodium (Enoxaparin 30 Mg/0.3 Ml Syringe) 30 mg SQ DAILY [facility] Last Admin: 07/19/21 13:16 Dose: 30 mg Documented by: Piperacillin Sod/Tazobactam (Sod 3.375 gm/ Sodium Chloride) 100 mls @ 25 mls/hr IVPB Q12HR [facility]; Protocol Parenteral Vitamin Supplement 10 ml/ Zinc/Copper/Manganese/Selenium 1 ml/ Amino Ac/Electrol/Dextrose/Calcium 1,011 mls @ 30 mls/hr IV .BY DURATION [facility] Stop: 07/21/21 13:00 Last Admin: 07/19/21 16:30 Dose: 30 mls/hr Documented by: Amino Ac/Electrol/Dextrose/Calcium (Clinimix E 5%-20% Solution) 1,000 mls @ 30 mls/hr IV .BY DURATION [facility] Stop: 07/21/21 13:00 Parenteral Vitamin Supplement 10 ml/ Zinc/Copper/Manganese/Selenium 1 ml/ Amino Ac/Electrol/Dextrose/Calcium 1,011 mls @ 60 mls/hr IV .BY DURATION [facility] Amino Ac/Electrol/Dextrose/Calcium (Clinimix E 5%-20% Solution) 1,000 mls @ 60 mls/hr IV .BY DURATION [facility] Fat Emulsion Intravenous 250 (ml/ IV Solution) 250 mls @ 21 mls/hr IV Q7D [facility] Iopamidol (Iopamidol Contrast (Oral Use) Vial) 30 ml PO Q60M PRN PRN Reason: CT Scan Stop: 07/20/21 13:24 Morphine Sulfate (Morphine Sulfate 4 Mg/Ml Syringe) 4 mg IV Q4HR PRN PRN Reason: Severe Pain Last Admin: 07/19/21 02:18 Dose: 4 mg Documented by: Naloxone HCl (Naloxone 0.4 Mg/Ml 1 Ml Vial) 0.2 mg IV Q2M PRN PRN Reason: Opioid Reversal Ondansetron HCl (Ondansetron 4 Mg/2 Ml Vial) 4 mg IVP Q8HR PRN PRN Reason: Nausea And Vomiting Last Admin: 07/18/21 13:26 Dose: 4 mg Documented by: Oxybutynin Chloride (Oxybutynin Chloride 5 Mg Tab) 5 mg PO BID [facility] Last Admin: 07/19/21 08:04 Dose: Not Given Documented by: Pantoprazole Sodium (Pantoprazole 40 Mg Tablet) 40 mg PO AC-BID [facility] Last Admin: 07/19/21 17:31 Dose: Not Given Documented by: Sodium Chloride (Sodium Chloride 0.9% Flush 10 Ml Syringe) 10 ml IV Q4HR PRN PRN Reason: PICC Line Sodium Chloride (Sodium Chloride 0.9% Flush 10 Ml Syringe) 10 ml IV WEEKLY [facility] Sodium Chloride (Sodium Chloride 0.9% Flush 10 Ml Syringe) 20 ml IV Q4HR PRN PRN Reason: PICC Line Past medical history to include: COPD, GERD, rheumatoid arthritis, questionable stroke, pubic rami fracture, celiac disease, cerebral aneurysm and AAA repair, lumbar radiculopathy, 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 . Does use a walker to get about . Family history: Throat cancer Physical examination: VITAL SIGNS: 97.4, 92, 14, 150/74, 90% on 3 L GENERAL: Reclining in bed , awake, tired EYES: Pupils equal. Conjunctiva normal. HEENT: External appearance of nose and ears normal, oral cavity grossly normal. NECK: JVD not raised; masses not palpable. HEART: First and second heart sounds are normal; no edema. LUNGS: Respiratory rate normal; clear to auscultation. ABDOMEN: Soft, minimal tenderness, distention, no guarding rigidity liver spleen not palpable, no masses palpable. Bowel sounds present. PSYCH: Alert and oriented x3; mood and affect anxious MUSCULOSKELETAL: Evidence of arthritis especially in the hands, INVESTIGATIONS, reviewed in the clinical context: July 19: Blood glucose 69. Potassium 4.4. Creatinine 9 creatinine 1.48 Chest x-ray film personally reviewed by me-[July 17]: Multiple air fluid levels. July 16: Sodium 133 potassium 3.3 BUN 25 creatinine 1.30 Fely 14: Potassium 4.2 bicarb 18 BUN 26 creatinine 1.29 July 14: Potassium 4.4 BUN 31 creatinine 1.64 pro-calcitonin 0.12 White count 6.2 hemoglobin 11.8 platelets 228 potassium 4.6 BUN 36 creatinine 1.74 EKG tracing personally reviewed by me-normal sinus rhythm. Rate 84 CT abdomen pelvis without contrast: Chronic diverticulosis. Multiple small bowel fluid levels. Other findings noted. Previous labs: Creatinine 2.04 on January 2021. Assessment and plan: -Acute abdominal pain that started yesterday. Small bowel air-fluid levels noted. No obvious fever and chills. Empirically IV Zosyn for possible enteritis/colitis.: Not improving . IV Zosyn. NG tube was put in again yesterday. To suction -COPD, in a previous smoker Albuterol when necessary -Chronic kidney disease stage III from nephrosclerosis Follow renal function -GERD Omeprazole 20 mg twice a day -Rheumatoid arthritis Pain control -Essential hypertension, uncontrolled Catapres patch 0.2 -Chronic celiac disease Gluten-free diet -Hypoglycemia from poor oral intake: New Given amp of D50, IV glucagon, d 5W -Overactive bladder causing incontinence uses a brief - Colonic diverticulosis, Follow clinically -Metabolic acidosis from renal failure: Better IV bicarbonate drip-stop -Acute kidney injury, prerenal: Better Admission creatinine 1.85. Currently 1.29 -PICC line ordered for TPN and lipids IV fluids. IV Zosyn. NG tube to suction. PICC line ordered for TPN and lipids. Care was discussed at length with the patient has been out of the bedside. Watch for another 24-48 hours. Total time spent today about 40 minutes with over 25 hours of discussion.
[2021-07-19] MEDS: ONDANSETRON 4 MG/2 ML VIAL IVP PRN (21:39)
[2021-07-19 23:56] LABS: Glucose,Whole Blood 174 mg/dL (75-99)
[2021-07-20 06:22] LABS: Glucose,Whole Blood 156 mg/dL (75-99)
[2021-07-20 07:24] LABS: African American GFR (CKD) 40 (>60 ml/min/1.73 sqM); Anion Gap 5 mmol/L; Blood Urea Nitrogen 27 mg/dL (7-17); Calcium 8.2 mg/dL (8.4-10.2); Carbon Dioxide 26 mmol/L (22-30); Chloride 103 mmol/L (98-107); Glucose 152 mg/dL (74-99); Magnesium 1.9 mg/dL (1.6-2.3); Non-African American GFR(CKD) 34 (>60 ml/min/1.73 sqM); Phosphorus 2.5 mg/dL (2.5-4.5); Potassium 3.5 mmol/L (3.5-5.1); Sodium 134 mmol/L (137-145)
[2021-07-20] MEDS ORDERED: MAGNESIUM SULFATE-D5W PMX 1 GM in DEXTROSE/WATER 1 100ML.BAG IVPB ONE (08:00)
[2021-07-20] MEDS: MORPHINE SULFATE 4 MG/ML SYRINGE IV PRN ×2 (08:27→13:36)
[2021-07-20] MEDS: PANTOPRAZOLE 40 MG TABLET PO SCH ×2 (08:28→17:59)
[2021-07-20] MEDS: DICYCLOMINE 10 MG CAP PO SCH ×4 (08:28→20:34)
[2021-07-20] MEDS: PIPERACILLIN-TAZOBACTAM 3.375 GM in SODIUM CHLORIDE 0.9% 100 ML IVPB SCH ×2 (09:43→20:34)
[2021-07-20] MEDS: IOPAMIDOL CONTRAST (ORAL USE) VIAL PO PRN ×2 (09:45→10:35)
[2021-07-20] MEDS: FAT EMULSION 20% 250 ML in EMPTY BAG 1 BAG IV SCH (09:54)
[2021-07-20] MEDS: ENOXAPARIN 30 MG/0.3 ML SYRINGE SQ SCH (09:59)
[2021-07-20] MEDS: OXYBUTYNIN CHLORIDE 5 MG TAB PO SCH ×2 (10:00→20:34)
[2021-07-20] MEDS: POTASSIUM CHLORIDE 10 MEQ in WATER FOR INJECTION 1 100ML.BAG IVPB SCH ×2 (10:02→12:06)
[2021-07-20 10:39] LABS: Basophils # (A) 0.02 X 10*3/uL (0.00-0.10); Basophils % (A) 0.2 %; Eosinophils % (A) 2.2 %; HCT 33.8 % (37.2-46.3); HGB 10.6 g/dL (12.0-15.0); Immature Grans, Automated 0.4 %; Lymphocytes # (A) 0.88 X 10*3/uL (0.90-5.00); Lymphocytes % (A) 9.7 %; MCH 28.8 pg (27.0-32.0); MCHC 31.4 g/dL (32.0-37.0); MCV 91.8 fL (80.0-97.0); Mean Platelet Volume 9.2 fL (9.5-12.2); Monocytes # (A) 0.67 X 10*3/uL (0.20-1.00); Monocytes % (A) 7.4 %; NRBC Per 100 WBC 0 /100 WBCS (0.0-0.0); Neutrophils # (A) 7.29 X 10*3/uL (1.80-7.70); Neutrophils % (A) 80.1 %; Platelet Count 235 X 10*3/uL (140-440); RBC 3.68 X 10*6/uL (4.10-5.20); RDW 13.9 % (11.5-14.5)
--- NOTE | 2021-07-20 10:59 | CDI ---
Documentation Clarification Form Date: 07/20/2021 10:13:58 AM From: Wendy Ledesma RN CCDS Admit Date: 07/12/2021 11:26:00 PM Patient Name: Brenda Miller Visit Number: [id number] Discharge Date: ATTENTION: The Clinical Documentation Specialists (CDI) and [facility] Coding Staff appreciate your assistance in clarifying documentation. Please respond to the clarification below the line at the bottom and electronically sign. The CDI & [facility] Coding staff will review the response and follow-up if needed. Please note: Queries are made part of the Legal Health Record. If you have any questions, please contact the author of this message via ITS. Dr. Dileep Wilson The Registered Dietitian assessment on 07/16 indicates this patient meets criteria for Severe Malnutrition. Based on this information and the findings below, is there an additional diagnosis that is clinically appropriate for this patient? History/Risk Factors: 85-year-old female presents to the ED with increasing abdominal pain with nausea and vomiting. Medical History: COPD, GERD, Celiac disease and Diverticulosis. 07/13, H&P. Clinical Indicators: RD Consult Assessment:07/16 Patient has been NPO x 3 days; No BM admitted with Ileus and abdominal pain. Current BMI: 18.6kg Physical Findings: Underweight 5ft; Weight 43.091kg; Calculated [place] Body weight 45kg. Estimated Nutritional Needs: Needs in Kcals: Energy formula 25-30 Kcals/Kg Energy Needs Kcal [id number] Needs in Protein: Estimated protein 1.0- 1.2 Estimated protein Needs grams/day 45-54. Nutritional Diagnosis Intake: Inadequate energy and protein energy it takes. Severe Malnutrition in context of chronic illness Related to Suboptimal PO x several months 2/2 decreased appetite/chronic conditions. As evidenced by < 75% of est need> 1 month: Severe muscle mass loss (temporalis), severe fat lost (buccal/orbital). Treatment: Regular Diet, Monitor PO and diet toleration, Monitor diet advancement and Monitor Supplement intake. Dietary Consult: See above Supplements: 07/16 Ensure Clear TID Lab monitoring: Chemistry Is there an additional diagnosis that is clinically appropriate for this patient? [ ] Severe Protein-Calorie Malnutrition [ ] Other condition, please specify [ ] Unable to Determine (Template Last Revised: June 2020) Moderate protein calorie malnutrition MTDD
[2021-07-20 11:34] LABS: Glucose,Whole Blood 140 mg/dL (75-99)
[2021-07-20] MEDS ORDERED: BENZOCAINE SPRAY 1 CAN MUCOUS MEM PRN (13:25)
[2021-07-20] MEDS: LACTATED RINGERS 1,000 ML IV SCH (13:36)
--- NOTE | 2021-07-20 14:26 | P.PN ---
Progress Note - Text Progress Note Date: 07/20/21 Chief Complaint: Abdominal pain History of presenting complaint: This is a 85-year-old patient of Dr. Johnson. Chronic stable medical conditions include COPD, GERD, rheumatoid arthritis, celiac disease, chronic urinary incontinence, lumbar radiculopathy , diverticulosis. Patient does use a walker. She was admitted here in January 2021 with severe bowel spasms. Patient yesterday after started having increasing abdominal pain across. Leg cramping. Along with nausea vomiting. Not able to keep anything down. Dexter hot. Normally has a bowel movement every other day. Had a bowel movement yesterday. No improvement. Computed tomography scan of the ER showed air-fluid levels. Made nothing by mouth. Surgery consulted. Admitted with acute possible colitis with severe bowel spasms. July 14: Slurring significant abdominal pain. Scheduled Bentyl added. Con tinue with IV fluids. IV Zosyn. Remains nothing by mouth. July 15: NG tube was placed yesterday for small bowel obstruction. Output noted. Abdominal distention better. Decreased abdominal pain. Laying in bed. Empirically and IV Zosyn. Catapres patch 0.2 started for uncontrolled blood pressure. July 16: NG tube court accidentally pulled out. Started on clear liquids by surgery. Some abdominal distention present. Did pass flatus. Laying in bed. No nausea vomiting July 17: Patient still having abdominal distention. Abdominal pain. Some flatus. Abdominal x-ray reviewed. Significant air-fluid levels. Discussed with patient and at bedside. On the option is to try NG tube again. Patient is reluctant but agreed. Otherwise next definitely surgery. Discussed with Dr. Thomas from surgery. He concurs July 18: Nursing staff unable to place NG tube. Abdominal distention. Nausea vomiting. No flatus or BM. Patient will need surgical intervention. Discussed with patient. A bit apprehensive. Patient counseled July 19: Patient was hypoglycemic this morning. Ordered amp of D50. 1 mg of glucagon IV. And D5W. Earlier patient's has spoken to Dr. Stauffer and surgery has been postponed for at least couple of days depending how patient does with NG tube. About 3 and a cc was obtained overnight. Decreased abdominal pain. No factors or BM. Had a very lengthy discussion with the patient's and the patient the bedside. PICC line and TPN ordered July 20: Patient had a PICC line placed yesterday. TPN and lipids started. Patient had about 400 mL output yesterday. No flatus. Abdominal distention. Decreased pain. Discussed with the patient and with Dr. Stauffer later. For surgery tomorrow. Active Medications Benzocaine (Benzocaine Rex 1 Can) 1 spray MUCOUS MEM QID PRN; Protocol PRN Reason: Mouth Irritation Clonidine HCl (Clonidine 0.2 Mg/24hr Patch) 1 patch TRANSDERM Q7D [facility] Last Admin: 07/15/21 09:50 Dose: 1 patch Documented by: Dicyclomine HCl (Dicyclomine 10 Mg Cap) 10 mg PO QID [facility] Last Admin: 07/20/21 12:04 Dose: Not Given Documented by: Enoxaparin Sodium (Enoxaparin 30 Mg/0.3 Ml Syringe) 30 mg SQ DAILY [facility] Last Admin: 07/20/21 09:59 Dose: 30 mg Documented by: Hydromorphone HCl (Hydromorphone 0.5 Mg/0.5 Ml Syringe) 0.5 mg IVP Q5M PRN PRN Reason: Phase 1 or 2 - Pain Control Stop: 07/21/21 23:00 Piperacillin Sod/Tazobactam (Sod 3.375 gm/ Sodium Chloride) 100 mls @ 25 mls/hr IVPB Q12HR [facility]; Protocol Last Admin: 07/20/21 09:43 Dose: 25 mls/hr Documented by: Parenteral Vitamin Supplement 10 ml/ Zinc/Copper/Manganese/Selenium 1 ml/ Amino Ac/Electrol/Dextrose/Calcium 1,011 mls @ 30 mls/hr IV .BY DURATION [facility] Stop: 07/21/21 13:00 Last Admin: 07/19/21 16:30 Dose: 30 mls/hr Documented by: Amino Ac/Electrol/Dextrose/Calcium (Clinimix E 5%-20% Solution) 1,000 mls @ 30 mls/hr IV .BY DURATION [facility] Stop: 07/21/21 13:00 Parenteral Vitamin Supplement 10 ml/ Zinc/Copper/Manganese/Selenium 1 ml/ Amino Ac/Electrol/Dextrose/Calcium 1,011 mls @ 60 mls/hr IV .BY DURATION [facility] Amino Ac/Electrol/Dextrose/Calcium (Clinimix E 5%-20% Solution) 1,000 mls @ 60 mls/hr IV .BY DURATION [facility] Fat Emulsion Intravenous 250 (ml/ IV Solution) 250 mls @ 21 mls/hr IV Q7D [facility] Last Admin: 07/20/21 09:54 Dose: 21 mls/hr Documented by: Lactated Ringer's (Lactated Ringers) 1,000 mls @ 20 mls/hr IV .Q24H [facility] Last Admin: 07/20/21 13:36 Dose: Not Given Documented by: Morphine Sulfate (Morphine Sulfate 4 Mg/Ml Syringe) 4 mg IV Q4HR PRN PRN Reason: Severe Pain Last Admin: 07/20/21 13:36 Dose: 4 mg Documented by: Naloxone HCl (Naloxone 0.4 Mg/Ml 1 Ml Vial) 0.2 mg IV Q2M PRN PRN Reason: Opioid Reversal Ondansetron HCl (Ondansetron 4 Mg/2 Ml Vial) 4 mg IVP Q8HR PRN PRN Reason: Nausea And Vomiting Last Admin: 07/19/21 21:39 Dose: 4 mg Documented by: Oxybutynin Chloride (Oxybutynin Chloride 5 Mg Tab) 5 mg PO BID [facility] Last Admin: 07/20/21 10:00 Dose: Not Given Documented by: Pantoprazole Sodium (Pantoprazole 40 Mg Tablet) 40 mg PO AC-BID [facility] Last Admin: 07/20/21 08:28 Dose: Not Given Documented by: Sodium Chloride (Sodium Chloride 0.9% Flush 10 Ml Syringe) 10 ml IV Q4HR PRN PRN Reason: PICC Line Sodium Chloride (Sodium Chloride 0.9% Flush 10 Ml Syringe) 10 ml IV WEEKLY [facility] Sodium Chloride (Sodium Chloride 0.9% Flush 10 Ml Syringe) 20 ml IV Q4HR PRN PRN Reason: PICC Line Past medical history to include: COPD, GERD, rheumatoid arthritis, questionable stroke, pubic rami fracture, celiac disease, cerebral aneurysm and AAA repair, lumbar radiculopathy, 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 . Does use a walker to get about . Family history: Throat cancer Physical examination: VITAL SIGNS: , Afebrile, 79 16, 90% on 2 L, 153/84 GENERAL: Reclining in bed , awake, tired EYES: Pupils equal. Conjunctiva normal. HEENT: External appearance of nose and ears normal, oral cavity grossly normal. NG tube to suction NECK: JVD not raised; masses not palpable. HEART: First and second heart sounds are normal; no edema. LUNGS: Respiratory rate normal; clear to auscultation. ABDOMEN: Soft, minimal tenderness, distention, no guarding rigidity liver spleen not palpable, no masses palpable. Bowel sounds present. PSYCH: Alert and oriented x3; mood and affect anxious MUSCULOSKELETAL: Evidence of arthritis especially in the hands, INVESTIGATIONS, reviewed in the clinical context: July 20: White count 9.1 hemoglobin 10.6 potassium 3.5 BUN 27 creatinine 1.39 July 19: Blood glucose 69. Potassium 4.4. Creatinine 9 creatinine 1.48 Chest x-ray film personally reviewed by me-[July 17]: Multiple air fluid levels. July 16: Sodium 133 potassium 3.3 BUN 25 creatinine 1.30 July 15: Potassium 4.2 bicarb 18 BUN 26 creatinine 1.29 July 14: Potassium 4.4 BUN 31 creatinine 1.64 pro-calcitonin 0.12 White count 6.2 hemoglobin 11.8 platelets 228 potassium 4.6 BUN 36 creatinine 1.74 EKG tracing personally reviewed by me-normal sinus rhythm. Rate 84 CT abdomen pelvis without contrast: Chronic diverticulosis. Multiple small bowel fluid levels. Other findings noted. Previous labs: Creatinine 2.04 on January 2021. Assessment and plan: -Acute abdominal pain that started yesterday. Small bowel air-fluid levels noted. No obvious fever and chills. Empirically IV Zosyn for possible enteritis/colitis.: Not improving . IV Zosyn. NG tube reinserted:. To suction. Patient being scheduled for surgery tomorrow. 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 Currently 1.29 -TPN and lipids started -Moderate protein calorie malnutrition Supplemental nutrition IV IV fluids. IV Zosyn. NG tube to suction. TPN and lipids. Care was discussed with the patient and Dr. Stauffer. Being scheduled for surgery tomorrow.
--- NOTE | 2021-07-20 14:45 | CT ---
EXAMINATION TYPE: CT abdomen pelvis wo con DATE OF EXAM: 07/20/2021 COMPARISON: CT dated 07/12/2021 HISTORY: Abdominal pain, Ileus CT DLP: 265.0 mGycm Automated exposure control for dose reduction was used. TECHNIQUE: Helical acquisition of images was performed from the lung bases through the pelvis. FINDINGS: LUNG BASES: Sizable bilateral pleural effusions with adjacent subsegmental pulmonary atelectasis. Rig ht anterior basal pleural-based nodule, stable. Faint infiltration is seen at the anterior aspect of the lung bases, associated infection cannot be excluded, please clinically. Dilated descending thorac ic aorta measuring 4 cm. Coronary arterial calcifications. LIVER/GB: No definite hepatic focal lesion. Nodular outline of the liver. The gallbladder isn't diste nded without definite radiodense calculi. PANCREAS: Atrophic SPLEEN: Small spleen ADRENALS: No significant abnormality is seen. KIDNEYS: Tiny left upper pole 3 mm calculus, otherwise unremarkable kidneys. FREE AIR: No free air is visualized RETROPERITONEAL ADENOPATHY: None visualized REPRODUCTIVE ORGANS: Previous hysterectomy. No gross adnexal mass. URINARY BLADDER: No significant abnormality is seen. PELVIC ADENOPATHY: No pathologically enlarged pelvic lymph nodes. OSSEOUS STRUCTURES: Diffuse osteopenia. Left proximal femoral fixation using 3 metallic screws with chronic partially healed fractures of the left superior and inferior pubic rami. Multilevel lower tho racic and upper lumbar vertebral body collapse, appreciated previously. BOWEL: NG tube is seen with the tip within the stomach. Contrast seen within the stomach, duodenum a nd proximal small bowel loops. The duodenum does not pass into the left side of the abdomen with the proximal jejunal loops are located in the right side of the abdomen. This may suggest a form of abnor mal bowel rotation. Dilated small bowel loops measuring up to 3.9 cm and most evident in the left aysha e of the abdomen. The oral contrast did not reach that region. There is apparent transition point see n in the left side of the abdomen best appreciated in images #24 and 25, series 6 with complete colla pse of the small bowel loops distal to that point. No colleen evidence of pneumatosis, free peritoneal air or portal venous gas however bowel ischemia cannot be excluded. Sizable free pelvic fluid is note d. Scattered uncomplicated colonic diverticulosis. OTHER: Arterial atherosclerotic calcifications. IMPRESSION: Findings are highly suggestive of acute high-grade mechanical small bowel obstruction with a transiti on point in the left side of the abdomen as detailed above. The underlying etiology could be related to adhesion however internal hernia or abnormal bowel rotation cannot be excluded. Recommend surgical consultation if not already performed. Bowel ischemia cannot be excluded. No colleen pneumatosis, free peritoneal air or portal venous gas. Other findings as described above.
--- NOTE | 2021-07-20 15:01 | P.PN ---
Subjective Progress Note Date: 07/20/21 CHIEF COMPLAINT: Abdominal pain HISTORY OF PRESENT ILLNESS: Patient was small bowel obstruction. NG tube in place. She had 400 bilious output through the NG tube and 6 AM. She is currently on TPN for nutrition support. Her potassium and magnesium are being replaced. Patient does still report abdominal pain with abdominal distention. She denies any flatus or bowel movement. She is complaining of irritation in her throat from the NG tube. Afebrile. WBC 9.10 hemoglobin 10.6 platelets 235 sodium 134 potassium 3.5 creatinine 1.39 magnesium 1.9 Computed tomography scan abdomen and pelvis findings are highly suggestive of acute high-grade mechanical small bowel obstruction with a transition point in the left side of the abdomen. The underlying etiology could be related to adhesion however internal hernia or abnormal bowel rotation cannot be excluded. Bowel ischemia cannot be excluded. No colleen pneumatosis, free peritoneal air or portal venous gas. Patient seen and examined with Dr. hicks PHYSICAL EXAM: VITAL SIGNS: Reviewed. GENERAL: Well-developed in no acute distress. HEENT: No sclera icterus. Extraocular movements grossly intact. Moist buccal mucosa. Head is atraumatic, normocephalic. ABDOMEN: Mildly distended. Tenderness to palpation of the lower abdomen NEUROLOGIC: Alert and oriented. Cranial nerves II through XII grossly intact. ASSESSMENT: 1. Small bowel obstruction with computed tomography scan evidence of acute high-grade mechanical small bowel obstruction 2. Abdominal pain 3. Hypokalemia and hypomagnesemia PLAN: -Exploratory laparotomy with lysis of adhesions scheduled for 07/21/[address] hicks -Continue NG tube for decompression -Keep patient nothing by mouth -Continue IV fluids -Continue supportive care -Continue pain medication as needed -Replace electrolytes -Hurricaine spray added for throat irritation Physician Mold Cleaner note has been reviewed by physician. Signing provider agrees with the documented findings, assessment, and plan of care. Objective - Vital Signs Vital signs: Vital Signs Temp 98 F 07/20/21 12:06 Pulse 81 07/20/21 12:06 Resp 16 07/20/21 12:06 BP 153/84 07/20/21 08:26 Pulse Ox 89 L 07/20/21 12:06 Intake & Output 07/19/21 07/20/21 07/20/21 18:59 06:59 18:59 Intake Total 1130 100 Output Total 100 Balance 1030 100 Weight 43.091 kg Intake: Intake, IV Titration 1130 100 Amount Dextrose 5% in Water 1, 1000 000 ml @ 130 mls/hr IV . Q7H42M [facility] Rx#:[id number] Mvi, Adult No.4 with Vit 30 K 10 ml Trace (Conc-1Ml/ Dose) 1 ml In Amino Acid 5%-D20w+Lytes*E* 1,000 ml @ 30 mls/hr IV .BY DURATION [facility] Rx#: [id number] Piperacillin-Tazobactam 3 100 100 .375 gm In Sodium Chloride 0.9% 100 ml @ 25 mls/hr IVPB Q12HR [facility] Rx #:[id number] Oral 0 Output: Gastric Drainage 100 Other: Voiding Method Diaper Diaper Incontinent Incontinent # Voids 4 2 - Labs CBC & Chem 7: 07/20/21 06:51 07/20/21 06:51 Labs: Abnormal Lab Results - Last 24 Hours (Table) 07/19/21 07/19/21 07/20/21 Range/Units 16:37 23:55 06:20 RBC (4.10-5.20) X 10*6/uL Hgb (12.0-15.0) g/dL Hct (37.2-46.3) % MCHC (32.0-37.0) g/dL MPV (9.5-12.2) fL Lymphocytes # (0.90-5.00) X 10*3/uL Sodium (137-145) mmol/L BUN (7-17) mg/dL Creatinine (0.52-1.04) mg/dL Glucose (74-99) mg/dL POC Glucose (mg/dL) 155 H 174 H 156 H (75-99) mg/dL Calcium (8.4-10.2) mg/dL 07/20/21 07/20/21 07/20/21 Range/Units 06:51 06:51 11:32 RBC 3.68 L (4.10-5.20) X 10*6/uL Hgb 10.6 L (12.0-15.0) g/dL Hct 33.8 L (37.2-46.3) % MCHC 31.4 L (32.0-37.0) g/dL MPV 9.2 L (9.5-12.2) fL Lymphocytes # 0.88 L (0.90-5.00) X 10*3/uL Sodium 134 L (137-145) mmol/L BUN 27 H (7-17) mg/dL Creatinine 1.39 H (0.52-1.04) mg/dL Glucose 152 H (74-99) mg/dL POC Glucose (mg/dL) 140 H (75-99) mg/dL Calcium 8.2 L (8.4-10.2) mg/dL
--- NOTE | 2021-07-20 17:04 | P.PN ---
Subjective Patient is seen for follow-up for chronic kidney disease with an element of acute kidney injury which has improved. Patient has underlying CK D stage III with baseline creatinine around 1.3-1.5 mg/dL. Etiology is nephrosclerosis. Patient is being admitted to the hospital with abdominal pain and currently has an NG tube for bowel obstruction. She is being followed by general surgery and plans are for surgery tomorrow Serum creatinine has improved to 1.39 today from 1.48 yesterday. Patient is maintained on TPN Objective - Vital Signs Vital signs: Vital Signs Temp 98 F 07/20/21 12:06 Pulse 81 07/20/21 12:06 Resp 16 07/20/21 12:06 BP 153/84 07/20/21 08:26 Pulse Ox 91 L 07/20/21 15:23 Intake & Output 07/19/21 07/20/21 07/20/21 18:59 06:59 18:59 Intake Total 0899 153 6781 Output Total 100 700 Balance 1030 100 500 Weight 43.091 kg Intake: Intake, IV Titration 1130 100 Amount Dextrose 5% in Water 1, 1000 000 ml @ 130 mls/hr IV . Q7H42M COUNT INCLUDES THE [facility] Rx#:[id number] Mvi, Adult No.4 with Vit 30 K 10 ml Trace (Conc-1Ml/ Dose) 1 ml In Amino Acid 5%-D20w+Lytes*E* 1,000 ml @ 30 mls/hr IV .BY DURATION [facility] Rx#: [id number] Piperacillin-Tazobactam 3 100 100 .375 gm In Sodium Chloride 0.9% 100 ml @ 25 mls/hr IVPB Q12HR [facility] Rx #:[id number] Oral 0 1200 Output: Gastric Drainage 100 700 Other: Voiding Method Diaper Diaper Incontinent Incontinent # Voids 4 2 - Exam Awake, comfortable, not in any acute distress Examination of the heart S1 and S2 Examination lungs bilateral breath sounds are heard Abdomen is soft nontender Examination of lower extremities shows no evidence of edema BOTTLE CARRIER exam grossly intact - Labs CBC & Chem 7: 07/20/21 06:51 07/20/21 06:51 Labs: Abnormal Lab Results - Last 24 Hours (Table) 07/19/21 07/20/21 07/20/21 Range/Units 23:55 06:20 06:51 RBC 3.68 L (4.10-5.20) X 10*6/uL Hgb 10.6 L (12.0-15.0) g/dL Hct 33.8 L (37.2-46.3) % MCHC 31.4 L (32.0-37.0) g/dL MPV 9.2 L (9.5-12.2) fL Lymphocytes # 0.88 L (0.90-5.00) X 10*3/uL Sodium (137-145) mmol/L BUN (7-17) mg/dL Creatinine (0.52-1.04) mg/dL Glucose (74-99) mg/dL POC Glucose (mg/dL) 174 H 156 H (75-99) mg/dL Calcium (8.4-10.2) mg/dL 07/20/21 07/20/21 Range/Units 06:51 11:32 RBC (4.10-5.20) X 10*6/uL Hgb (12.0-15.0) g/dL Hct (37.2-46.3) % MCHC (32.0-37.0) g/dL MPV (9.5-12.2) fL Lymphocytes # (0.90-5.00) X 10*3/uL Sodium 134 L (137-145) mmol/L BUN 27 H (7-17) mg/dL Creatinine 1.39 H (0.52-1.04) mg/dL Glucose 152 H (74-99) mg/dL POC Glucose (mg/dL) 140 H (75-99) mg/dL Calcium 8.2 L (8.4-10.2) mg/dL Assessment and Plan Assessment: 1. Acute kidney injury prerenal currently improved with IV hydration UA shows 1+ protein. Computed tomography scan shows no evidence of hydronephrosis, although fullness of bilateral renal pelvises noted. 2. Chronic kidney disease NKF stage IIIB with baseline creatinine 1.3-1.5 mg/dL. Etiology nephrosclerosis. 3. Bowel obstruction being followed by general surgery, currently with NG tube in place, scheduled for explorative laparotomy and lysis of adhesions tomorrow Plan: Continue TPN Repeat labs in a.m. Replace potassium
[2021-07-20 17:18] LABS: Glucose,Whole Blood 138 mg/dL (75-99)
[2021-07-20] MEDS: 1: MVI, ADULT NO.4 WITH VIT K 10 ML, TRACE (CONC-1ML/DOSE) 1 ML in AMINO ACID 5%-D20W+LY IV SCH ×3 (17:54)
[2021-07-20 23:40] LABS: Glucose,Whole Blood 139 mg/dL (75-99)
[2021-07-21] MEDS: MORPHINE SULFATE 4 MG/ML SYRINGE IV PRN (04:08)
[2021-07-21 05:48] LABS: Glucose,Whole Blood 128 mg/dL (75-99)
[2021-07-21 06:17] LABS: Basophils % (A) 0 %; Eosinophils # (A) 0.1 k/uL (0-0.7); Eosinophils % (A) 2 %; HCT 34.2 % (34.0-46.0); Lymphocytes # (A) 0.8 k/uL (1.0-4.8); Lymphocytes % (A) 10 %; MCH 29.4 pg (25.0-35.0); MCHC 32.3 g/dL (31.0-37.0); MCV 91.2 fL (80.0-100.0); Mean Platelet Volume 7.1; Monocytes # (A) 0.4 k/uL (0-1.0); Monocytes % (A) 5 %; Neutrophils # (A) 6.4 k/uL (1.3-7.7); Neutrophils % (A) 83 %; Platelet Count 258 k/uL (150-450); RBC 3.75 m/uL (3.80-5.40); WBC 7.8 k/uL (3.8-10.6)
[2021-07-21 06:26] LABS: ALT 9 U/L (4-34); AST 18 U/L (14-36); African American GFR (CKD) 45 (>60 ml/min/1.73 sqM); Albumin 2.5 g/dL (3.5-5.0); Albumin/Globulin Ratio 0.7; Alkaline Phosphatase 61 U/L (38-126); Anion Gap 4 mmol/L; Blood Urea Nitrogen 25 mg/dL (7-17); Calcium 7.9 mg/dL (8.4-10.2); Carbon Dioxide 27 mmol/L (22-30); Chloride 102 mmol/L (98-107); Globulin 3.4 g/dL; Glucose 136 mg/dL (74-99); Magnesium 2.1 mg/dL (1.6-2.3); Non-African American GFR(CKD) 39 (>60 ml/min/1.73 sqM); Potassium 3.8 mmol/L (3.5-5.1); Sodium 133 mmol/L (137-145); Total Bilirubin 0.5 mg/dL (0.2-1.3); Total Protein 5.9 g/dL (6.3-8.2)
[2021-07-21] MEDS ORDERED: MORPHINE SULFATE 2 MG/ML SYRINGE IVP STA (07:34)
--- NOTE | 2021-07-21 07:49 | XR ---
EXAMINATION TYPE: XR chest 1V portable DATE OF EXAM: 07/21/2021 HISTORY: Shortness of breath. COMPARISON: 07/12/2021 TECHNIQUE: Single view of the chest is submitted. FINDINGS: Demonstrated are scattered senescent parenchymal change. There is pulmonary venous congestion with scattered infiltrates and pleural effusions. Borderline car diomegaly. Correlate for underlying congestive failure. Infiltrates of other etiology not excluded. N G tube is seen in the stomach. Right-sided PICC line in place. Hilar and mediastinal structures are within normal limits. Degenerative changes are seen of the dorsal spine. IMPRESSION: 1. There is pulmonary venous congestion with scattered infiltrates and pleural effusions. Borderline cardiomegaly. Correlate for underlying congestive failure. Infiltrates of other etiology not exclude d.
[2021-07-21] MEDS: PANTOPRAZOLE 40 MG/10 ML VIAL IVP SCH (07:57)
[2021-07-21] MEDS: PANTOPRAZOLE 40 MG TABLET PO SCH (08:46)
[2021-07-21] MEDS: ENOXAPARIN 30 MG/0.3 ML SYRINGE SQ SCH (08:47)
[2021-07-21] MEDS: OXYBUTYNIN CHLORIDE 5 MG TAB PO SCH ×2 (08:47→20:23)
[2021-07-21] MEDS: DICYCLOMINE 10 MG CAP PO SCH ×4 (08:47→21:52)
[2021-07-21] MEDS: PIPERACILLIN-TAZOBACTAM 3.375 GM in SODIUM CHLORIDE 0.9% 100 ML IVPB SCH ×2 (08:54→20:11)
[2021-07-21] MEDS ORDERED: FUROSEMIDE 10 MG/ML 2 ML VIAL IV ONE (09:11)
[2021-07-21] MEDS ORDERED: IPRATROPIUM-ALBUTEROL 3 ML NEB INHALATION STA (09:23)
[2021-07-21] MEDS ORDERED: IPRATROPIUM-ALBUTEROL 3 ML NEB INHALATION PRN (09:23)
--- NOTE | 2021-07-21 09:26 | P.PN ---
Subjective This is a 85-year-old patient of Dr. Johnson. Chronic stable medical conditions include COPD, GERD, rheumatoid arthritis, celiac disease, chronic urinary incontinence, lumbar radiculopathy , diverticulosis. Patient does use a walker. She was admitted here in January 2021 with severe bowel spasms. Patient yesterday after started having increasing abdominal pain across. Leg cramping. Along with nausea vomiting. Not able to keep anything down. Jeffrey hot. Normally has a bowel movement every other day. Had a bowel movement yesterday. No improvement. Computed tomography scan of the ER showed air-fluid levels. Made nothing by mouth. Surgery consulted. Admitted with acute possible colitis with severe bowel spasms. July 14: Slurring significant abdominal pain. Scheduled Bentyl added. Continue with IV fluids. IV Zosyn. Remains nothing by mouth. July 15: NG tube was placed yesterday for small bowel obstruction. Output noted. Abdominal distention better. Decreased abdominal pain. Laying in bed. Empirically and IV Zosyn. Catapres patch 0.2 started for uncontrolled blood pressure. July 16: NG tube court accidentally pulled out. Started on clear liquids by surgery. Some abdominal distention present. Did pass flatus. Laying in bed. No nausea vomiting July 17: Patient still having abdominal distention. Abdominal pain. Some flatus. Abdominal x-ray reviewed. Significant air-fluid levels. Discussed with patient and at bedside. On the option is to try NG tube again. Patient is reluctant but agreed. Otherwise next definitely surgery. Discussed with Dr. Thomas from surgery. He concurs July 18: Nursing staff unable to place NG tube. Abdominal distention. Nausea vomiting. No flatus or BM. Patient will need surgical intervention. Discussed with patient. A bit apprehensive. Patient counseled July 19: Patient was hypoglycemic this morning. Ordered amp of D50. 1 mg of glucagon IV. And D5W. Earlier patient's has spoken to Dr. Stauffer and surgery has been postponed for at least couple of days depending how patient does with NG tube. About 3 and a cc was obtained overnight. Decreased abdominal pain. No factors or BM. Had a very lengthy discussion with the patient's and the patient the bedside. PICC line and TPN ordered July 20: Patient had a PICC line placed yesterday. TPN and lipids started. Patient had about 400 mL output yesterday. No flatus. Abdominal distention. Decreased pain. Discussed with the patient and with Dr. Stauffer later. For s manjit tomorrow. Subjective: Resuming the care of the patient 07/21/2021 This is a pleasant 85 years old female with multiple medical problems who was admitted to the hospital on 07/13 with signs and symptoms of bowel obstruction. She was treated initially conservatively with the plan for her to go for exploratory laparotomy with possible lysis of adhesions today 07/21. NG tube in place and she was sitting in bed, looks calm. He is fully awake. She is complaining of from central chest pain since yesterday about 5-09/10, with no associated dyspnea or coughing. On the tachypneic. She is denying any abdominal pain. No abdominal distention and NG tube in place. The Vitas looks stable and she is saturating 91% to 92% on 3 L oxygen via nasal cannula. CBC is unremarkable. Creatinine trending down to 1.25. Sodium 133. Troponin mildly elevated at 0.05, it was negative on admission however patient has elevated troponin on 01/2021 at 0.04-0.05. Chest x-ray, reviewed by myself, showing increased venous congestion with possible mild right pleural effusion. EKG showing normal sinus rhythm at 80, no significant ST-T changes and QTC 431 Currently she is off therapeutic IV fluids. We will give 1 dose of IV Lasix 20 mg. Cardiology been consulted for preop evaluation and bedside nurse informed Review of systems CONSTITUTIONAL: No fever, no malaise, no fatigue. HEENT: No recent visual problems or hearing problems. Denied any sore throat. CARDIOVASCULAR: No orthopnea, PND, no palpitations, no syncope. PULMONARY: No chest wall tenderness no hemoptysis. GASTROINTESTINAL: No diarrhea, no nausea, no vomiting, Normoactive bowel sounds. NEUROLOGICAL: No headaches, no weakness, no numbness. HEMATOLOGICAL: Denies any bleeding or petechiae. Active Medications Generic Name Dose Route Start Last Admin Trade Name Freq PRN Reason Stop Dose Admin Albuterol/Ipratropium 3 ml 07/21/21 09:23 Ipratropium-Albuterol 3 Ml Neb INHALATION RT-QID PRN Shortness Of Breath Or Wheezing Benzocaine 1 spray 07/20/21 13:25 Benzocaine [place] 1 Can MUCOUS MEM QID PRN Mouth Irritation Protocol Clonidine HCl 1 patch 07/15/21 10:00 07/15/21 09:50 Clonidine 0.2 Mg/24hr Patch TRANSDERM 1 patch Q7D [facility] Administration Dicyclomine HCl 10 mg 07/14/21 10:30 07/21/21 08:47 Dicyclomine 10 Mg Cap PO Not Given QID [facility] Enoxaparin Sodium 30 mg 07/12/21 22:30 07/21/21 08:47 Enoxaparin 30 Mg/0.3 Ml Syringe SQ Not Given DAILY [facility] Hydromorphone HCl 0.5 mg 07/21/21 07:00 Hydromorphone 0.5 Mg/0.5 Ml Syringe IVP 07/21/21 23:00 Q5M PRN Phase 1 or 2 - Pain Control Piperacillin Sod/Tazobactam 100 mls @ 25 mls/hr 07/19/21 21:00 07/21/21 08:54 Sod 3.375 gm/ Sodium Chloride IVPB 25 mls/hr Q12HR [facility] Administration Protocol Parenteral Vitamin Supplement 1,011 mls @ 30 mls/hr 07/19/21 16:00 07/19/21 16:30 10 ml/ Zinc/Copper/Manganese/ IV 07/21/21 13:00 30 mls/hr Selenium 1 ml/ Amino Ac/ .BY DURATION [facility] Administration Electrol/Dextrose/Calcium Amino Ac/Electrol/Dextrose/Calcium 1,000 mls @ 30 mls/hr 07/19/21 16:00 07/20/21 17:54 Clinimix E 5%-20% Solution IV 07/21/21 13:00 30 mls/hr .BY DURATION [facility] Administration Parenteral Vitamin Supplement 1,011 mls @ 60 mls/hr 07/21/21 17:00 10 ml/ Zinc/Copper/Manganese/ IV Selenium 1 ml/ Amino Ac/ .BY DURATION [facility] Electrol/Dextrose/Calcium Amino Ac/Electrol/Dextrose/Calcium 1,000 mls @ 60 mls/hr 07/21/21 17:00 Clinimix E 5%-20% Solution IV .BY DURATION [facility] Fat Emulsion Intravenous 250 250 mls @ 21 mls/hr 07/20/21 09:00 07/20/21 09:54 ml/ IV Solution IV 21 mls/hr Q7D [facility] Administration Lactated Ringer's 1,000 mls @ 20 mls/hr 07/20/21 12:45 07/20/21 13:36 Lactated Ringers IV Not Given .Q24H [facility] Potassium Chloride 20 meq/ IV 100 mls @ 50 mls/hr 07/21/21 10:00 Solution IVPB 07/21/21 11:59 ONCE ONE Morphine Sulfate 4 mg 07/12/21 22:26 07/21/21 04:08 Morphine Sulfate 4 Mg/Ml Syringe IV 4 mg Q4HR PRN Administration Severe Pain Naloxone HCl 0.2 mg 07/12/21 22:26 Naloxone 0.4 Mg/Ml 1 Ml Vial IV Q2M PRN Opioid Reversal Ondansetron HCl 4 mg 07/12/21 22:26 07/19/21 21:39 Ondansetron 4 Mg/2 Ml Vial IVP 4 mg Q8HR PRN Administration Nausea And Vomiting Oxybutynin Chloride 5 mg 07/13/21 09:00 07/21/21 08:47 Oxybutynin Chloride 5 Mg Tab PO Not Given BID [facility] Pantoprazole Sodium 40 mg 07/21/21 09:00 07/21/21 07:57 Pantoprazole 40 Mg/10 Ml Vial IVP 40 mg DAILY [facility] Administration Sodium Chloride 10 ml 07/19/21 14:49 Sodium Chloride 0.9% Flush 10 Ml Syringe IV Q4HR PRN PICC Line Sodium Chloride 10 ml 07/26/21 09:00 Sodium Chloride 0.9% Flush 10 Ml Syringe IV WEEKLY [facility] Sodium Chloride 20 ml 07/19/21 14:49 Sodium Chloride 0.9% Flush 10 Ml Syringe IV Q4HR PRN PICC Line Objective - Vital Signs Vital signs: Vital Signs Temp 97.9 F 07/21/21 04:10 Pulse 84 07/21/21 07:40 Resp 16 07/21/21 04:10 BP 158/79 07/21/21 07:40 Pulse Ox 91 L 07/21/21 07:40 Intake & Output 07/20/21 07/21/21 07/21/21 18:59 06:59 18:59 Intake Total 2210 580 Output Total 1250 600 Balance 960 -20 Intake: Intake, IV Titration 1010 580 Amount Amino Acid 5%-D20w+Lytes* 360 360 E* 1,000 ml @ 30 mls/hr IV .BY DURATION [facility] Rx#: [id number] Fat Emulsion 20% 250 ml 250 120 In Empty Bag 1 bag @ 21 mls/hr IV Q7D [facility] Rx#: [id number] Magnesium Sulfate-D5w Pmx 100 1 gm In Dextrose/Water 1 100ml.bag @ 100 mls/hr IVPB ONCE ONE Rx#: [id number] Piperacillin-Tazobactam 3 100 100 .375 gm In Sodium Chloride 0.9% 100 ml @ 25 mls/hr IVPB Q12HR [facility] Rx #:[id number] Potassium Chloride 10 meq 200 In Water For Injection 1 100ml.bag @ 100 mls/hr IVPB Q1H [facility] Rx#: [id number] Oral 1200 0 Output: Gastric Drainage 1250 600 Other: Voiding Method Diaper Incontinent # Voids 4 3 # Bowel Movements 0 - Exam GENERAL: The patient is alert and oriented x3, not in any acute distress. Well developed, well nourished. HEENT: Pupils are round and equally reacting to light. EOMI. No scleral icterus. No conjunctival pallor. Normocephalic, atraumatic. No pharyngeal erythema. No thyromegaly. CARDIOVASCULAR: S1 and S2 present. No murmurs, rubs, or gallops. PULMONARY: Chest is clear to auscultation, no wheezing or crackles. -ABDOMEN: Soft, nontender, nondistended, normoactive bowel sounds. No palpable organomegaly. NG tube in place MUSCULOSKELETAL: No joint swelling or deformity. EXTREMITIES: No cyanosis, clubbing, or pedal edema. NEUROLOGICAL: Gross neurological examination did not reveal any focal deficits. SKIN: No rashes. no petechiae. - Labs CBC & Chem 7: 07/21/21 05:43 07/21/21 05:43 Labs: Abnormal Lab Results - Last 24 Hours (Table) 07/20/21 07/20/21 07/20/21 Range/Units 06:51 11:32 17:16 RBC 3.68 L (4.10-5.20) X 10*6/uL Hgb 10.6 L (12.0-15.0) g/dL Hct 33.8 L (37.2-46.3) % MCHC 31.4 L (32.0-37.0) g/dL MPV 9.2 L (9.5-12.2) fL Lymphocytes # 0.88 L (0.90-5.00) X 10*3/uL Sodium (137-145) mmol/L BUN (7-17) mg/dL Creatinine (0.52-1.04) mg/dL Glucose (74-99) mg/dL POC Glucose (mg/dL) 140 H 138 H (75-99) mg/dL Calcium (8.4-10.2) mg/dL Troponin I (0.000-0.034) ng/mL Total Protein (6.3-8.2) g/dL Albumin (3.5-5.0) g/dL 07/20/21 07/21/21 07/21/21 Range/Units 23:38 05:43 05:43 RBC 3.75 L (4.10-5.20) X 10*6/uL Hgb 11.0 L (12.0-15.0) g/dL Hct (37.2-46.3) % MCHC (32.0-37.0) g/dL MPV (9.5-12.2) fL Lymphocytes # 0.8 L (0.90-5.00) X 10*3/uL Sodium 133 L (137-145) mmol/L BUN 25 H (7-17) mg/dL Creatinine 1.25 H (0.52-1.04) mg/dL Glucose 136 H (74-99) mg/dL POC Glucose (mg/dL) 139 H (75-99) mg/dL Calcium 7.9 L (8.4-10.2) mg/dL Troponin I (0.000-0.034) ng/mL Total Protein 5.9 L (6.3-8.2) g/dL Albumin 2.5 L (3.5-5.0) g/dL 07/21/21 07/21/21 Range/Units 05:43 05:46 RBC (4.10-5.20) X 10*6/uL Hgb (12.0-15.0) g/dL Hct (37.2-46.3) % MCHC (32.0-37.0) g/dL MPV (9.5-12.2) fL Lymphocytes # (0.90-5.00) X 10*3/uL Sodium (137-145) mmol/L BUN (7-17) mg/dL Creatinine (0.52-1.04) mg/dL Glucose (74-99) mg/dL POC Glucose (mg/dL) 128 H (75-99) mg/dL Calcium (8.4-10.2) mg/dL Troponin I 0.058 H* (0.000-0.034) ng/mL Total Protein (6.3-8.2) g/dL Albumin (3.5-5.0) g/dL Assessment and Plan Assessment: - Acute small bowel obstruction. Empirically IV Zosyn for possible enteritis/colitis.: Planned for exploratory laparotomy on 07/21 area we will ask for cardiology preop evaluation. Bedside staff informed -Chest pain with mild tachypnea, related to mild acute CHF, diastolic with EF 55-60% per echocardiogram on 01/2021 Cardiology team consulted for preop evaluation. Give 1 dose of IV Lasix 20 mg Start breathing treatment when necessary -COPD, in a previous smoker Albuterol when necessary -Chronic kidney disease stage III from nephrosclerosis Follow renal function -GERD Omeprazole 20 mg twice a day -Rheumatoid arthritis Pain control -Essential hypertension, Catapres patch 0.2 -Chronic celiac disease Gluten-free diet -Hypoglycemia from poor oral intake: Better Improved. -Overactive bladder causing incontinence uses a brief - Colonic diverticulosis, Follow clinically -Acute kidney injury, prerenal: Better Admission creatinine 1.85. Currently 1.2 -Chronic kidney disease, stage III Secondary to hypertension -Moderate protein calorie malnutrition Supplemental nutrition IV TPN and lipids started DVT prophylaxis: Lovenox GI prophylaxis: Protonix Prognosis: Guarded
[2021-07-21] MEDS ORDERED: POTASSIUM CHLORIDE 20 MEQ in WATER FOR INJECTION 1 100ML.BAG IVPB ONE (10:00)
--- NOTE | 2021-07-21 11:16 | CA ---
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 LV function Cardiac Hx: Pre-op, lv function Technical Quality: Contrast 1: N/A Total Dose (mL): Contrast 2: Total Dose (mL): MEASUREMENTS (Male / Female) Normal Values 2D ECHO LV Diastolic Diameter PLAX 2.7 cm 4.2 - 5.9 / 3.9 - 5.3 cm LV Systolic Diameter PLAX 2.9 cm IVS Diastolic Thickness 1.0 cm 0.6 - 1.0 / 0.6 - 0.9 cm LVPW Diastolic Thickness 0.9 cm 0.6 - 1.0 / 0.6 - 0.9 cm LV Relative Wall Thickness 0.7 RV Internal Dim ED PLAX 2.3 cm M-MODE Aortic Root Diameter MM 2.4 cm LA Systolic Diameter MM 2.9 cm LA Ao Ratio MM 1.2 MV E Point Septal Separation 0.3 cm AV Cusp Separation MM 1.9 cm DOPPLER MV Area PHT 3.1 cm Mitral E Point Velocity 53.5 cm/s Mitral A Point Velocity 102.0 cm/s Mitral E to A Ratio 0.5 MV Deceleration Time 242.8 ms MV E' Velocity 3.2 cm/s Mitral E to MV E' Ratio 16.8 TR Peak Velocity 307.9 cm/s TR Peak Gradient 37.9 mmHg Right Ventricular Systolic Press 44.5 mmHg FINDINGS Left Ventricle Normal left ventricular systolic function with no obvious regional wall motion abnormalities. Right Ventricle The right ventricle is normal in size and function. Right ventricular systolic pressure is 45mmHg. Right Atrium The right atrium is normal in size. Left Atrium The left atrium is normal in size. Mitral Valve Structurally normal mitral valve without significant stenosis or prolapse. There is no mitral regurgitation. Aortic Valve Structurally normal aortic valve without significant sclerosis or stenosis. There is no aortic regurgitation. Tricuspid Valve Mild tricuspid regurgitation mild RV Pulmonic Valve Structurally normal pulmonic valve without significant stenosis. There is no pulmonic regurgitation. Pericardium Normal pericardium without effusion. Aorta Normal aortic root dimension. CONCLUSIONS #1. Normal left ventricular size and function with an ejection fraction about 55-60% #2. Normal mitral and aortic valve structure and function. #3. Mild tricuspid regurgitation. #4. No pericardial effusion Previewed by: Dr. Arnoldo Aguiar MD (Electronically Signed) Final Date: 21 July 2021 11:15
[2021-07-21 11:19] LABS: Glucose,Whole Blood 136 mg/dL (75-99)
--- NOTE | 2021-07-21 12:05 | P.CRDCN ---
History of Present Illness History of present illness: This is a pleasant 85-year-old female past medical history significant for CVA/TIA, chronic kidney disease, GERD, COPD, cerebral aneurysm, abdominal aortic aneurysm, seizures, diverticulosis, skin cancer. 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 She did see Dr. Aguiar in 2013 for chest pain and underwent a Lexiscan stress test which was negative for reversible ischemia and an echoca rdiogram with Normal EF. We have been asked to see in consultation for Pre-Op Evaluation. Patient presents emergency department on 07/12/2021 with abdominal pain. Small bowel obstruction was diagnosed. Surgery evaluated the patient. Initially was treated with NG tube, IV antibiotics, supportive care and monitored. She denies history of NC, diabetes, hypertension, coronary artery disease. Repeat CT abdomen and pelvis on 07/20/2021 Report revealed highly suggestive of acute high-grade mechanical small bowel structural transition point in the left side of the abdomen. Underlying etiology could be related to adhesion however internal hernia or normal bowel regurgitation cannot be excluded. Recommend surgical consultation is now artery performed. Bowel ischemia cannot be excluded. Plan for patient to undergo Exploratory laparotomy with lysis of adhesions today with Dr. Stauffer. Per nursing, patient had an episode of chest pain this morning. EKG and troponin was performed. EKG with no acute changes. Troponin revealed mildly elevated at 0.058. Cardiology was consulted. Patient does endorse midsternal chest discomfort, but states it is due to her NG tube she states when the fluid from her stomach goes up/down the tube she feels discomfort. She also is having a headache. She is breathing well. No shortness of breath, palpitations, lightheadedness, dizziness. DIAGNOSTICS EKG reveals sinus rhythm, heart rate 84, T wave inversions in leads I, aVL. No acute ischemia noted. Echocardiogram revealed EF 55-60%, no significant wall motion abnormalities, mild tricuspid regurgitation Most recent Lexiscan stress test in 2013 was negative for reversible ischemia. Most recent echocardiogram in 2013 revealed EF of 60%, mild mitral regurgitation, mild tricuspid regurgitation. Laboratory data reviewed, Troponin 0.058, WBC 7.8, Hgb 11, Plt 258, Sodium 133, K 3.8, BUN 25, sCr 1.25, Mag 2.1, Albumin 2.5. Telemetry tracings indicate REVIEW OF SYSTEMS At the time of my exam: CONSTITUTIONAL: Denies fever or chills. CARDIOVASCULAR: Denies chest pain, shortness of breath, orthopnea, PND or palpitations. RESPIRATORY: Denies cough. GASTROINTESTINAL: + abdominal pain, +nausea, No vomiting Denies diarrhea, constipation MUSCULOSKELETAL: Denies myalgias. NEUROLOGIC: Denies numbness, tingling, +headache, Denies weakness. ENDOCRINE: Denies fatigue, weight change, polydipsia or polyurina. GENITOURINARY: Denies burning, hematuria or urgency with micturation. HEMATOLOGIC: Denies history of anemia or bleeding. PHYSICAL EXAMINATION Blood pressure 158/79, heart rate 84, afebrile, oxygen saturation is 91% on 3 L nasal cannula CONSTITUTIONAL: No apparent distress. HEENT: Head is normocephalic. Pupils are equal, round. Sclerae anicteric. Mucous membranes of the mouth are moist. No JVD CHEST EXAMINATION: Lungs are diminished in the bases to auscultation. No chest wall tenderness is noted on palpation or with deep breathing. HEART EXAMINATION: Regular rate and rhythm. S1, S2 heard. No murmurs, gallops or rub. ABDOMEN: Distended +Tenderness to palpation to the middle and lower abdomen EXTREMITIES: 2+ peripheral pulses, no lower extremity edema and no calf tenderness. SKIN: warm, dry, pale NEUROLOGIC EXAMINATION: Patient is awake, alert and oriented x3. ASSESSMENT Abdominal Pain Small bowel obstruction Elevated troponin, unclear significance at this time Chest discomfort, appears non-cardiac in etiology, patient states it is more secondary to her NG tube discomfort. Acute on Chronic kidney disease, improving History of CVA/TIA History of COPD History of cerebral aneurysm Abdominal aortic aneurysm History of seizures PLAN -Patient is at high risk for cardiovascular event during surgery. She has the following risk factors elevated troponin, age, history of TIA/CVA, acute on chronic kidney disease. Patient is not able to perform >4 METs levels of a ctivity. This risk of surgery was discussed with the patient and family, and would like to proceed with surgery at this time. Patient is hemodynamically stable. Recommend cautious fluid administration and optimal BP control. Thank you kindly for this consultation. Nurse Practitioner note has been reviewed, I agree with a documented findings and plan of care. Patient was seen and examined. Past Medical History Past Medical History: Cancer, COPD, CVA/TIA, GERD/Reflux, Musculoskeletal Disorder, Neurologic Disorder, Pneumonia, Renal Disease, Rheumatoid Arthritis (RA), Skin Disorder Additional Past Medical History / Comment(s): 2016 FALL/LT HIP FX(sx). 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 KIDNEY DX, PAD,"difficulty swallowing", uti-ecoli 2016, over active bladder wears a brief. ESRD History of Any Multi-Drug Resistant Organisms: None Reported Past Surgical History: Appendectomy, Cholecystectomy, Hysterectomy, Orthopedic Surgery Additional Past Surgical History / Comment(s): brain aneursym with surgery and angioplasty, aaa repair also, jani cataract, skin ca removed, lt breast bx and cyst removed, d&c, colonoscopy, orif lt hip, ORIF RT HIP, EGD Past Anesthesia/Blood Transfusion Reactions: No Reported Reaction Past Psychological History: No Psychological Hx Reported Additional Psychological History / Comment(s): . Smoking Status: Never smoker Past Alcohol Use History: None Reported Additional Past Alcohol Use History / Comment(s): started smoking at age 17, quit 2002, was smoking 5 cig per day Past Drug Use History: None Reported - Past Family History Mother Additional Family Medical History / Comment(s): BOWEL PROBLEMS/DIVERTICULAR DIEASE. LIVED TO BE 96 YEARS OLD Father History Unknown: Yes Additional Family Medical History / Comment(s): IN HIS SLEEEP AT AGE 86 Sister(s) Family Medical History: Cancer Additional Family Medical History / Comment(s): COLON Brother(s) Family Medical History: Cancer Additional Family Medical History / Comment(s): THROAT CANCER Medications and Allergies Home Medications Medication Instructions Recorded Confirmed Type Omeprazole 20 mg PO AC-BID #60 cap 06/30/20 07/12/21 Rx Oxybutynin Chloride [Ditropan] 5 mg PO BID #60 tab 06/30/20 07/12/21 Rx Allergies Allergy/AdvReac Type Severity Reaction Status Date / Time gluten Allergy Unknown Verified 07/12/21 18:19 codeine AdvReac Nausea & Verified 07/12/21 18:19 Vomiting Physical Exam Vitals: Vital Signs Temp Pulse Resp BP Pulse Ox 07/21/21 07:40 84 158/79 91 L 07/21/21 07:30 97.4 F L 81 16 140/80 94 L 07/21/21 04:10 97.9 F 88 16 149/77 98 07/20/21 20:40 98.7 F 90 20 158/80 92 L 07/20/21 15:23 91 L 07/20/21 12:06 98 F 81 16 89 L Intake and Output 07/20/21 07/21/21 07/21/21 22:59 06:59 14:59 Intake Total 2210 580 Output Total 1250 600 Balance 960 -20 Intake: Intake, IV Titration 1010 580 Amount Amino Acid 5%-D20w+Lytes* 360 360 E* 1,000 ml @ 30 mls/hr IV .BY DURATION [facility] Rx#: [id number] Fat Emulsion 20% 250 ml 250 120 In Empty Bag 1 bag @ 21 mls/hr IV Q7D [facility] Rx#: [id number] Magnesium Sulfate-D5w Pmx 100 1 gm In Dextrose/Water 1 100ml.bag @ 100 mls/hr IVPB ONCE ONE Rx#: [id number] Piperacillin-Tazobactam 3 100 100 .375 gm In Sodium Chloride 0.9% 100 ml @ 25 mls/hr IVPB Q12HR [facility] Rx #:[id number] Potassium Chloride 10 meq 200 In Water For Injection 1 100ml.bag @ 100 mls/hr IVPB Q1H [facility] Rx#: [id number] Oral 1200 0 Output: Gastric Drainage 1250 600 Other: Voiding Method Diaper Diaper Incontinent Incontinent # Voids 1 3 # Bowel Movements 0 Results 07/21/21 05:43 07/21/21 05:43 Cardiac Enzymes 07/21/21 07/21/21 Range/Units 05:43 05:43 AST 18 (14-36) U/L Troponin I 0.058 H* (0.000-0.034) ng/mL CBC 07/20/21 07/21/21 Range/Units 06:51 05:43 WBC 9.10 7.8 (4.50-10.00) X 10*3/uL RBC 3.68 L 3.75 L (4.10-5.20) X 10*6/uL Hgb 10.6 L 11.0 L (12.0-15.0) g/dL Hct 33.8 L 34.2 (37.2-46.3) % Plt Count 235 258 (140-440) X 10*3/uL Comprehensive Metabolic Panel 07/21/21 Range/Units 05:43 Sodium 133 L (137-145) mmol/L Potassium 3.8 (3.5-5.1) mmol/L Chloride 102 (98-107) mmol/L Carbon Dioxide 27 (22-30) mmol/L BUN 25 H (7-17) mg/dL Creatinine 1.25 H (0.52-1.04) mg/dL Glucose 136 H (74-99) mg/dL Calcium 7.9 L (8.4-10.2) mg/dL AST 18 (14-36) U/L ALT 9 (4-34) U/L Alkaline Phosphatase 61 (38-126) U/L Total Protein 5.9 L (6.3-8.2) g/dL Albumin 2.5 L (3.5-5.0) g/dL Current Medications Generic Name Dose Route Start Last Admin Trade Name Freq PRN Reason Stop Dose Admin Albuterol/Ipratropium 3 ml 07/21/21 09:23 Ipratropium-Albuterol 3 Ml Neb INHALATION RT-QID PRN Shortness Of Breath Or Wheezing Benzocaine 1 spray 07/20/21 13:25 Benzocaine [employer] 1 Can MUCOUS MEM QID PRN Mouth Irritation Protocol Clonidine HCl 1 patch 07/15/21 10:00 07/15/21 09:50 Clonidine 0.2 Mg/24hr Patch TRANSDERM 1 patch Q7D [facility] Administration Dicyclomine HCl 10 mg 07/14/21 10:30 07/21/21 08:47 Dicyclomine 10 Mg Cap PO Not Given QID [facility] Enoxaparin Sodium 30 mg 07/12/21 22:30 07/21/21 08:47 Enoxaparin 30 Mg/0.3 Ml Syringe SQ Not Given DAILY [facility] Hydromorphone HCl 0.5 mg 07/21/21 07:00 Hydromorphone 0.5 Mg/0.5 Ml Syringe IVP 07/21/21 23:00 Q5M PRN Phase 1 or 2 - Pain Control Piperacillin Sod/Tazobactam 100 mls @ 25 mls/hr 07/19/21 21:00 07/21/21 08:54 Sod 3.375 gm/ Sodium Chloride IVPB 25 mls/hr Q12HR [facility] Administration Protocol Parenteral Vitamin Supplement 1,011 mls @ 30 mls/hr 07/19/21 16:00 07/19/21 16:30 10 ml/ Zinc/Copper/Manganese/ IV 07/21/21 13:00 30 mls/hr Selenium 1 ml/ Amino Ac/ .BY DURATION [facility] Administration Electrol/Dextrose/Calcium Amino Ac/Electrol/Dextrose/Calcium 1,000 mls @ 30 mls/hr 07/19/21 16:00 07/20/21 17:54 Clinimix E 5%-20% Solution IV 07/21/21 13:00 30 mls/hr .BY DURATION [facility] Administration Parenteral Vitamin Supplement 1,011 mls @ 60 mls/hr 07/21/21 17:00 10 ml/ Zinc/Copper/Manganese/ IV Selenium 1 ml/ Amino Ac/ .BY DURATION [facility] Electrol/Dextrose/Calcium Amino Ac/Electrol/Dextrose/Calcium 1,000 mls @ 60 mls/hr 07/21/21 17:00 Clinimix E 5%-20% Solution IV .BY DURATION [facility] Fat Emulsion Intravenous 250 250 mls @ 21 mls/hr 07/20/21 09:00 07/20/21 09:54 ml/ IV Solution IV 21 mls/hr Q7D [facility] Administration Lactated Ringer's 1,000 mls @ 20 mls/hr 07/20/21 12:45 07/20/21 13:36 Lactated Ringers IV Not Given .Q24H [facility] Potassium Chloride 20 meq/ IV 100 mls @ 50 mls/hr 07/21/21 10:00 Solution IVPB 07/21/21 11:59 ONCE ONE Morphine Sulfate 4 mg 07/12/21 22:26 07/21/21 04:08 Morphine Sulfate 4 Mg/Ml Syringe IV 4 mg Q4HR PRN Administration Severe Pain Naloxone HCl 0.2 mg 07/12/21 22:26 Naloxone 0.4 Mg/Ml 1 Ml Vial IV Q2M PRN Opioid Reversal Ondansetron HCl 4 mg 07/12/21 22:26 07/19/21 21:39 Ondansetron 4 Mg/2 Ml Vial IVP 4 mg Q8HR PRN Administration Nausea And Vomiting Oxybutynin Chloride 5 mg 07/13/21 09:00 07/21/21 08:47 Oxybutynin Chloride 5 Mg Tab PO Not Given BID [facility] Pantoprazole Sodium 40 mg 07/21/21 09:00 07/21/21 07:57 Pantoprazole 40 Mg/10 Ml Vial IVP 40 mg DAILY [facility] Administration Sodium Chloride 10 ml 07/19/21 14:49 Sodium Chloride 0.9% Flush 10 Ml Syringe IV Q4HR PRN PICC Line Sodium Chloride 10 ml 07/26/21 09:00 Sodium Chloride 0.9% Flush 10 Ml Syringe IV WEEKLY [facility] Sodium Chloride 20 ml 07/19/21 14:49 Sodium Chloride 0.9% Flush 10 Ml Syringe IV Q4HR PRN PICC Line Intake and Output 07/20/21 07/21/21 07/21/21 22:59 06:59 14:59 Intake Total 2210 580 Output Total 1250 600 Balance 960 -20 Intake: Intake, IV Titration 1010 580 Amount Amino Acid 5%-D20w+Lytes* 360 360 E* 1,000 ml @ 30 mls/hr IV .BY DURATION [facility] Rx#: [id number] Fat Emulsion 20% 250 ml 250 120 In Empty Bag 1 bag @ 21 mls/hr IV Q7D [facility] Rx#: [id number] Magnesium Sulfate-D5w Pmx 100 1 gm In Dextrose/Water 1 100ml.bag @ 100 mls/hr IVPB ONCE ONE Rx#: [id number] Piperacillin-Tazobactam 3 100 100 .375 gm In Sodium Chloride 0.9% 100 ml @ 25 mls/hr IVPB Q12HR [facility] Rx #:[id number] Potassium Chloride 10 meq 200 In Water For Injection 1 100ml.bag @ 100 mls/hr IVPB Q1H [facility] Rx#: [id number] Oral 1200 0 Output: Gastric Drainage 1250 600 Other: Voiding Method Diaper Diaper Incontinent Incontinent # Voids 1 3 # Bowel Movements 0 07/21/21 05:43 07/21/21 05:43
[2021-07-21] MEDS: IV FLUID CONTINUATION 700 ML IV ONE ×3 (12:22→16:22)
[2021-07-21] MEDS ORDERED: SODIUM CHLORIDE 0.9% 1,000 ML IV ONE (12:45)
[2021-07-21] MEDS: SODIUM CHLORIDE 0.9% 1,000 ML IV ONE ×2 (12:45→16:22)
[2021-07-21] MEDS ORDERED: HEPARIN SODIUM,PORCINE/PF 5,000 UNIT/0.5 ML SYRINGE SQ ONE (12:54)
[2021-07-21] MEDS ORDERED: DEXAMETHASONE SOD PHOSPHATE 4 MG/ML 1 ML VIAL IVP ONE (12:55)
[2021-07-21] MEDS ORDERED: ONDANSETRON 4 MG/2 ML VIAL IVP ONE (12:56)
[2021-07-21] MEDS ORDERED: SUCCINYLCHOLINE CHLORIDE 100 MG/5 ML SYR IV ONE (13:05)
[2021-07-21] MEDS ORDERED: LABETALOL 5 MG/ML VIAL MDV ONE (13:05)
[2021-07-21] MEDS ORDERED: PROPOFOL 10 MG/ML 20 ML VIAL IV ONE (13:05)
[2021-07-21] MEDS ORDERED: PHENYLEPHRINE-0.9% NACL SYG 1,000 MCG/10 ML SYRINGE ONE (13:05)
[2021-07-21] MEDS ORDERED: HYDROmorphone (PF) 1 MG/ML ONE (13:05)
[2021-07-21] MEDS ORDERED: ROCURONIUM 10 MG/ML (5 ML VIAL) IV ONE (13:05)
[2021-07-21] MEDS ORDERED: LIDOCAINE 2% INJ 20 MG/ML (2 ML VIAL) ONE (13:05)
[2021-07-21] MEDS ORDERED: NEOSTIGMINE 1 MG/ML 10 ML VIAL ONE (13:05)
[2021-07-21] MEDS ORDERED: ePHEDrine 50 MG/ML 1 ML VIAL ONE (13:05)
[2021-07-21] MEDS ORDERED: GLYCOPYRROLATE 0.2 MG/ML 2 ML VIAL ONE (13:05)
[2021-07-21] MEDS ORDERED: fentaNYL (PF) 50 MCG/ML 2 ML AMP ONE (13:05)
[2021-07-21] MEDS ORDERED: IV FLUID CONTINUATION 1,000 ML IV ONE (13:09)
--- NOTE | 2021-07-21 14:27 | P.PN ---
Subjective Patient is seen for follow-up for chronic kidney disease with an element of acute kidney injury which has improved. Patient has underlying CK D stage III with baseline creatinine around 1.3-1.5 mg/dL. Etiology is nephrosclerosis. Patient is being admitted to the hospital with abdominal pain and currently has an NG tube for bowel obstruction. She is being followed by general surgery and plans are for surgery today. Patient had chest pain today and is currently awaiting urology clearance. Objective - Vital Signs Vital signs: Vital Signs Temp 98.2 F 07/21/21 12:29 Pulse 78 07/21/21 12:29 Resp 18 07/21/21 12:29 BP 154/68 07/21/21 12:29 Pulse Ox 94 L 07/21/21 12:29 Intake & Output 07/20/21 07/21/21 07/21/21 18:59 06:59 18:59 Intake Total 2210 580 50 Output Total 1250 600 Balance 960 -20 50 Intake: IV 50 Intake, IV Titration 1010 580 Amount Amino Acid 5%-D20w+Lytes* 360 360 E* 1,000 ml @ 30 mls/hr IV .BY DURATION [facility] Rx#: [id number] Fat Emulsion 20% 250 ml 250 120 In Empty Bag 1 bag @ 21 mls/hr IV Q7D [facility] Rx#: [id number] Magnesium Sulfate-D5w Pmx 100 1 gm In Dextrose/Water 1 100ml.bag @ 100 mls/hr IVPB ONCE ONE Rx#: [id number] Piperacillin-Tazobactam 3 100 100 .375 gm In Sodium Chloride 0.9% 100 ml @ 25 mls/hr IVPB Q12HR [facility] Rx #:[id number] Potassium Chloride 10 meq 200 In Water For Injection 1 100ml.bag @ 100 mls/hr IVPB Q1H [facility] Rx#: [id number] Oral 1200 0 Output: Gastric Drainage 1250 600 Other: Voiding Method Diaper Diaper Incontinent Incontinent # Voids 4 3 # Bowel Movements 0 - Exam Awake, comfortable, not in any acute distress Examination of the heart S1 and S2 Examination lungs bilateral breath sounds are heard Abdomen is soft nontender Examination of lower extremities shows no evidence of edema [employer] exam grossly intact - Labs CBC & Chem 7: 07/21/21 05:43 07/21/21 05:43 Labs: Abnormal Lab Results - Last 24 Hours (Table) 07/20/21 07/20/21 07/21/21 Range/Units 17:16 23:38 05:43 RBC (3.80-5.40) m/uL Hgb (11.4-16.0) gm/dL Lymphocytes # (1.0-4.8) k/uL Sodium 133 L (137-145) mmol/L BUN 25 H (7-17) mg/dL Creatinine 1.25 H (0.52-1.04) mg/dL Glucose 136 H (74-99) mg/dL POC Glucose (mg/dL) 138 H 139 H (75-99) mg/dL Calcium 7.9 L (8.4-10.2) mg/dL Troponin I (0.000-0.034) ng/mL Total Protein 5.9 L (6.3-8.2) g/dL Albumin 2.5 L (3.5-5.0) g/dL 07/21/21 07/21/21 07/21/21 Range/Units 05:43 05:43 05:46 RBC 3.75 L (3.80-5.40) m/uL Hgb 11.0 L (11.4-16.0) gm/dL Lymphocytes # 0.8 L (1.0-4.8) k/uL Sodium (137-145) mmol/L BUN (7-17) mg/dL Creatinine (0.52-1.04) mg/dL Glucose (74-99) mg/dL POC Glucose (mg/dL) 128 H (75-99) mg/dL Calcium (8.4-10.2) mg/dL Troponin I 0.058 H* (0.000-0.034) ng/mL Total Protein (6.3-8.2) g/dL Albumin (3.5-5.0) g/dL 07/21/21 Range/Units 11:17 RBC (3.80-5.40) m/uL Hgb (11.4-16.0) gm/dL Lymphocytes # (1.0-4.8) k/uL Sodium (137-145) mmol/L BUN (7-17) mg/dL Creatinine (0.52-1.04) mg/dL Glucose (74-99) mg/dL POC Glucose (mg/dL) 136 H (75-99) mg/dL Calcium (8.4-10.2) mg/dL Troponin I (0.000-0.034) ng/mL Total Protein (6.3-8.2) g/dL Albumin (3.5-5.0) g/dL Assessment and Plan Assessment: 1. Acute kidney injury prerenal currently improved with IV hydration UA shows 1+ protein. Computed tomography scan shows no evidence of hydronephrosis, al though fullness of bilateral renal pelvises noted. 2. Chronic kidney disease NKF stage IIIB with baseline creatinine 1.3-1.5 mg/dL. Etiology nephrosclerosis. 3. Bowel obstruction being followed by general surgery, currently with NG tube in place, scheduled for explorative laparotomy and lysis of adhesions tomorrow Plan: Continue IV hydration
[2021-07-21] MEDS ORDERED: LACTATED RINGERS 1,000 ML IV ONE (14:30)
--- NOTE | 2021-07-21 14:34 | P.ANPRN ---
Procedure Note - Anesthesia - Invasive Line Right Arterial Line Time Out Performed: Yes Date of Procedure: 07/21/21 Time of Procedure: 12:37 Location of Patient: PreOp Preparation: Sterile Prep, Sterile Dressing Arterial Line Location: Radial Ultrasound Used: No Purpose - Visualization and Identification of Vasculature: No Needle Guage: 20g Image Stored and Saved: No Narrative: Central line placement per sterile protocol utilized.
[2021-07-21] MEDS ORDERED: BACITRACIN ZINC 500 UNIT/GM OINT 28.4 GM TUBE TOPICAL ONE (14:44)
[2021-07-21] MEDS: HYDROmorphone 0.5 MG/0.5 ML SYRINGE IVP PRN ×4 (15:35→18:13)
[2021-07-21] MEDS: LACTATED RINGERS 1,000 ML IV SCH (16:22)
[2021-07-21 16:35] LABS: Glucose,Whole Blood 150 mg/dL (75-99)
[2021-07-21] MEDS: HYDROmorphone 1 MG/ML 1 ML SYRINGE IVP PRN ×2 (16:56→20:10)
[2021-07-21] MEDS: 1: MVI, ADULT NO.4 WITH VIT K 10 ML, TRACE (CONC-1ML/DOSE) 1 ML in AMINO ACID 5%-D20W+LY IV SCH ×3 (17:59)
[2021-07-21] MEDS ORDERED: HYDROmorphone 1 MG/ML 1 ML SYRINGE IVP STA (18:41)
[2021-07-21 23:15] LABS: Glucose,Whole Blood 251 mg/dL (75-99)
[2021-07-21] MEDS: INSULIN ASPART (NovoLOG) 100 UNIT/ML VIAL SQ SCH (23:27)
[2021-07-22] MEDS: HYDROmorphone 1 MG/ML 1 ML SYRINGE IVP PRN ×6 (01:02→21:47)
[2021-07-22 04:16] LABS: HCT 34.9 % (34.0-46.0); HGB 11.2 gm/dL (11.4-16.0); MCH 29.8 pg (25.0-35.0); Mean Platelet Volume 7.7; Platelet Count 306 k/uL (150-450); RBC 3.75 m/uL (3.80-5.40); RDW 13.7 % (11.5-15.5)
[2021-07-22 04:33] LABS: Albumin 2.3 g/dL (3.5-5.0); Calcium 7.8 mg/dL (8.4-10.2); Phosphorus 2.8 mg/dL (2.5-4.5); Potassium 3.8 mmol/L (3.5-5.1); Total Bilirubin 0.5 mg/dL (0.2-1.3); Total Protein 5.4 g/dL (6.3-8.2)
[2021-07-22 05:24] LABS: Glucose,Whole Blood 196 mg/dL (75-99)
[2021-07-22] MEDS: INSULIN ASPART (NovoLOG) 100 UNIT/ML VIAL SQ SCH ×4 (05:28→23:32)
--- NOTE | 2021-07-22 08:34 | P.OP ---
Date of Procedure: 07/21/21 Preoperative Diagnosis: Small bowel obstruction Postoperative Diagnosis: Small bowel obstruction Adhesions Procedure(s) Performed: Exploratory laparotomy Lysis of adhesion Small bowel resection Anesthesia: TAYLOR Surgeon: Darrell Stauffer Estimated Blood Loss (ml): 25 Pathology: other (Small bowel) Condition: stable Disposition: PACU Description of Procedure: The patient's placed on the operative table in the supine position. She received general anesthesia. Her abdomen was prepped and draped in sterile fashion. Patient's previous midline scar. The skin was incised in the midline. The left ALLERGIES dissect the abdominal wall. There were adhesions the interdental wall. These were lysed with sharp dissection. The small bowel was grossly dilated. The small bowel was run and in the left lower quadrant there was adhesive band causing a near complete small bowel obstruction. There appeared to be a stricture of this area. The small bowel adhesion was lysed. And then it was decided perform a small bowel resection where the area of the obstruction was. The bowel was divided proximally and distally using the HENRIK stapler. And then using the Enseal device the mesentery the bowel was divided. A [id number] functional end-to-end staple anastomosis created using HENRIK and TA stapler. A 3-0 GI silk sutures used to crotch stitch the anastomosis exam. Due to the dilated bowel and the thinness of the bowel wall from distention there appeared to be some leakage at the staple line. At this point the anastomosis taken down. The small bowel was was transected proximal and distally with the HENRIK stapler. And then using the Enseal device mesentery the bowel divided. A new anastomosis created using HENRIK and TA stapler. 3 adjacent suture was placed across this. There was no bleeding seen. The anastomosis appeared to be watertight. The mesentery was re-approximate using 3-0 GI silk suture. The area was irrigated opening seen. The fascia is closed loop #1 PDS suture. Skin closed ruth. Patient top she will was sent to recovery in stable condition.
[2021-07-22] MEDS: DICYCLOMINE 10 MG CAP PO SCH ×4 (08:40→21:04)
[2021-07-22] MEDS: PANTOPRAZOLE 40 MG/10 ML VIAL IVP SCH (08:41)
[2021-07-22] MEDS: PIPERACILLIN-TAZOBACTAM 3.375 GM in SODIUM CHLORIDE 0.9% 100 ML IVPB SCH ×2 (08:41→20:36)
[2021-07-22] MEDS: ENOXAPARIN 30 MG/0.3 ML SYRINGE SQ SCH (08:41)
[2021-07-22] MEDS: OXYBUTYNIN CHLORIDE 5 MG TAB PO SCH ×2 (08:41→21:04)
--- NOTE | 2021-07-22 08:43 | P.PN ---
Subjective Progress Note Date: 07/22/21 The patient is an 85-year-old female with multiple comorbid conditions, who is currently admitted to the hospital with small bowel obstruction. Cardiology was consult and for mildly abnormal troponin and preoperative clearance. Echocardiogram revealed normal LV function with mild tricuspid regurgitation. The patient underwent exploratory laparotomy with lysis of adhesions and small bowel resection on 07/21/2021. The patient is currently recovering in the intensive care unit. The patient states she does not have any chest pain. No difficulty breathing. She does appear to be in mild distress and states she has abdominal pain. GENERAL: Mal-nourished, cachectic, and in mild discmfort. NECK: No JVD or thyromegaly. LUNGS: Breath sounds diminished to auscultation bilaterally. Respiration equal and unlabored. No wheezes, rales or rhonchi. HEART: Regular rate. Soft systolic murmur. No rubs or gallops. S1 and S2 heard. EXTREMITIES: No edema. No clubbing or cyanosis. Peripheral pulses intact and strong. VITALS: Blood pressure 124/63, respiratory rate 15, pulse 101, SpO2 95% on 6 L nasal ca nnula TELEMETRY: Sinus tachycardia LABS: WBC 10.0, hemoglobin 11.2, hematocrit 34.9, platelet 306, sodium 132, potassium 3.8, BUN 35, creatinine 1.27, AST 20, ALT 11, magnesium 2.0 IMPRESSION: Small bowel obstruction, status post exploratory laparoscopy Elevated troponin, no rise and fall pattern Chronic kidney disease Abdominal aortic aneurysm History of CVA History of COPD History of cerebral aneurysm History of seizures PLAN: No change in medication regimen at this time Further recommendations to be based on clinical course I am dictating on behalf of Dr Ashish Ocampo's history/physical and assessment/plan. Objective - Vital Signs Vital signs: Vital Signs Temp 98.6 F 07/22/21 04:00 Pulse 101 H 07/22/21 07:00 Resp 15 07/22/21 07:00 BP 124/63 07/22/21 07:00 Pulse Ox 95 07/22/21 07:00 Intake & Output 07/21/21 07/22/21 07/22/21 18:59 06:59 18:59 Intake Total 1340 963 73 Output Total 240 805 15 Balance 1100 158 58 Weight 44 kg Intake: IV 1250 143 13 0.9 Sodium Chloride 110 10 Pressure Bag 33 3 Intake, IV Titration 90 820 60 Amount Amino Acid 5%-D20w+Lytes* 30 E* 1,000 ml @ 30 mls/hr IV .BY DURATION COUNT [facility]CLUDES [facility] Rx#: [id number] Mvi, Adult No.4 with Vit 60 720 60 K 10 ml Trace (Conc-1Ml/ Dose) 1 ml In Amino Acid 5%-D20w+Lytes*E* 1,000 ml @ 60 mls/hr IV .BY DURATION [facility] Rx#: [id number] Piperacillin-Tazobactam 3 100 .375 gm In Sodium Chloride 0.9% 100 ml @ 25 mls/hr IVPB Q12HR [facility] Rx #:[id number] Output: Gastric Drainage 400 Urine 190 405 15 Estimated Blood Loss 50 Other: Voiding Method Diaper Indwelling Catheter Incontinent ABP, PAP, CO, CI - Last Documented Arterial Blood Pressure 132/54 - Labs CBC & Chem 7: 07/22/21 04:00 07/22/21 04:00 Labs: Abnormal Lab Results - Last 24 Hours (Table) 07/21/21 07/21/21 07/21/21 Range/Units 05:43 11:17 16:34 RBC (3.80-5.40) m/uL Hgb (11.4-16.0) gm/dL Sodium (137-145) mmol/L BUN (7-17) mg/dL Creatinine (0.52-1.04) mg/dL Glucose (74-99) mg/dL POC Glucose (mg/dL) 136 H 150 H (75-99) mg/dL Calcium (8.4-10.2) mg/dL Troponin I 0.058 H* (0.000-0.034) ng/mL Total Protein (6.3-8.2) g/dL Albumin (3.5-5.0) g/dL 07/21/21 07/22/21 07/22/21 Range/Units 23:14 04:00 04:00 RBC 3.75 L (3.80-5.40) m/uL Hgb 11.2 L (11.4-16.0) gm/dL Sodium 132 L (137-145) mmol/L BUN 35 H (7-17) mg/dL Creatinine 1.27 H (0.52-1.04) mg/dL Glucose 227 H (74-99) mg/dL POC Glucose (mg/dL) 251 H (75-99) mg/dL Calcium 7.8 L (8.4-10.2) mg/dL Troponin I (0.000-0.034) ng/mL Total Protein 5.4 L (6.3-8.2) g/dL Albumin 2.3 L (3.5-5.0) g/dL 07/22/21 Range/Units 05:22 RBC (3.80-5.40) m/uL Hgb (11.4-16.0) gm/dL Sodium (137-145) mmol/L BUN (7-17) mg/dL Creatinine (0.52-1.04) mg/dL Glucose (74-99) mg/dL POC Glucose (mg/dL) 196 H (75-99) mg/dL Calcium (8.4-10.2) mg/dL Troponin I (0.000-0.034) ng/mL Total Protein (6.3-8.2) g/dL Albumin (3.5-5.0) g/dL
[2021-07-22] MEDS ORDERED: ENOXAPARIN 40 MG/0.4 ML SYRINGE SQ SCH (09:00)
--- NOTE | 2021-07-22 10:27 | P.CNPUL ---
History of Present Illness Consult date: 07/22/21 Requesting physician: Darrell Stauffer Reason for consult: other (Critical care management) Chief complaint: Abdominal pain History of present illness: This is a 85-year-old female patient with a known history of cerebral aneurysm with surgical repair, abdominal aortic aneurysm with surgical repair, COPD, rheumatoid arthritis, renal disease. She presented here to the emergency room back on 07/12/2021 with complaints of abdominal discomfort. On 07/21/2021 she had undergone a exploratory laparotomy with lysis of adhesions and small bowel resection. She was admitted to the intensive care unit last evening for closer observation. She is seen today in consultation. She is awake and alert. She is maintaining O2 saturations on 6 L high flow nasal cannula. She has TPN running at 60 ML's per hour. She has normal saline running at 10 MLS when necessary. White count 10.0. Hemoglobin 11.2. Sodium 132. Potassium 3.8. BUN 35. Creatinine 1.27. Glucose 227. She is currently on antibiotics in the form of Zosyn. 6 here from yesterday revealed some pulmonary venous congestion with scattered infiltrates and pleural effusions. Borderline cardiomegaly. She'll be educated regarding use the incentive spirometer. Nasogastric tube remains in place. He's been afebrile. Hemodynamically stable. Abdominal dressing dry and intact. Review of Systems REVIEW OF SYSTEMS: CONSTITUTIONAL: Denies any recent significant weight loss or weight gain. EYES: Denies change in vision. EARS, NOSE, MOUTH, THROAT: Denies headaches, denies sore throat. CARDIOVASCULAR: Denies chest pain, palpitations or syncopal episodes. RESPIRATORY: Denies shortness of breath, cough, congestion or hemoptysis. GASTROINTESTINAL: Positive for surgical abdominal discomfort GENITOURINARY: Denies hematuria, denies infections. MUSKULOSKELETAL: Denies pain, denies swelling. INTEGUMENTARY: Denies rash, denies eczema. NEUROLOGICAL: Denies recent memory loss, no recent seizure activity. PSYCHIATRIC: Denies anxiety, denies depression. HEMATOLOGIC/LYMPHATIC: Denies anemia, denies enlarged lymph nodes. Past Medical History Past Medical History: Cancer, COPD, CVA/TIA, GERD/Reflux, Musculoskeletal Disorder, Neurologic Disorder, Pneumonia, Renal Disease, Rheumatoid Arthritis (RA), Skin Disorder Additional Past Medical History / Comment(s): 2016 FALL/LT HIP FX(sx). 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 KIDNEY DX, PAD,"difficulty swallowing", uti-ecoli 2016, over active bladder wears a brief. ESRD History of Any Multi-Drug Resistant Organisms: None Reported Past Surgical History: Appendectomy, Cholecystectomy, Hysterectomy, Orthopedic Surgery Additional Past Surgical History / Comment(s): brain aneursym with surgery and angioplasty, aaa repair also, jani cataract, skin ca removed, lt breast bx and cyst removed, d&c, colonoscopy, orif lt hip, ORIF RT HIP, EGD Past Anesthesia/Blood Transfusion Reactions: No Reported Reaction Past Psychological History: No Psychological Hx Reported Additional Psychological History / Comment(s): . Smoking Status: Never smoker Past Alcohol Use History: None Reported Additional Past Alcohol Use History / Comment(s): started smoking at age 17, quit 2002, was smoking 5 cig per day Past Drug Use History: None Reported - Past Family History Mother Additional Family Medical History / Comment(s): BOWEL PROBLEMS/DIVERTICULAR DIEASE. LIVED TO BE 96 YEARS OLD Father History Unknown: Yes Additional Family Medical History / Comment(s): IN HIS SLEEEP AT AGE 86 Sister(s) Family Medical History: Cancer Additional Family Medical History / Comment(s): COLON Brother(s) Family Medical History: Cancer Additional Family Medical History / Comment(s): THROAT CANCER Medications and Allergies Home Medications Medication Instructions Recorded Confirmed Type Omeprazole 20 mg PO AC-BID #60 cap 06/30/20 07/12/21 Rx Oxybutynin Chloride [Ditropan] 5 mg PO BID #60 tab 06/30/20 07/12/21 Rx Allergies Allergy/AdvReac Type Severity Reaction Status Date / Time gluten Allergy Unknown Verified 07/21/21 12:28 codeine AdvReac Nausea & Verified 07/21/21 12:28 Vomiting Physical Exam Vitals: Vital Signs Temp Pulse Pulse Resp BP BP Pulse Ox 07/22/21 09:00 99 11 L 131/67 96 07/22/21 08:30 111 H 24 131/67 96 07/22/21 08:00 98.9 F 108 H 16 124/63 96 07/22/21 07:30 105 H 17 124/63 96 07/22/21 07:00 101 H 15 124/63 95 07/22/21 06:30 100 16 106/65 96 07/22/21 06:00 102 H 19 106/65 95 07/22/21 05:30 107 H 18 109/54 96 07/22/21 05:00 100 15 109/54 95 07/22/21 04:30 103 H 15 111/53 94 L 07/22/21 04:00 98.6 F 100 12 107/56 95 07/22/21 03:30 102 H 12 94 L 07/22/21 03:00 101 H 12 107/56 95 07/22/21 02:30 101 H 12 98/57 95 07/22/21 02:00 101 H 13 98/67 95 07/22/21 01:30 102 H 12 124/61 94 L 07/22/21 01:00 101 H 12 124/61 94 L 07/22/21 00:30 101 H 14 139/59 95 07/22/21 00:00 96.9 F L 101 H 12 122/64 94 L 07/21/21 23:30 114 H 15 92 L 07/21/21 23:04 100 12 92 L 07/21/21 23:00 100 12 122/64 92 L 07/21/21 22:30 99 12 93 L 07/21/21 22:00 99 12 123/63 92 L 07/21/21 21:30 98 12 123/57 92 L 07/21/21 21:19 92 L 07/21/21 21:00 96 12 133/97 94 L 07/21/21 20:30 96 12 149/63 91 L 07/21/21 20:00 97.1 F L 108 H 18 93 L 07/21/21 19:30 93 12 07/21/21 19:00 89 13 95 07/21/21 18:30 93 9 L 86 L 07/21/21 18:00 78 13 95 07/21/21 17:30 84 12 96 07/21/21 17:00 97.1 F L 71 16 97 07/21/21 16:37 21 07/21/21 16:15 88 16 142/64 99 07/21/21 16:00 82 16 125/58 99 07/21/21 15:45 74 16 108/57 99 07/21/21 15:30 78 16 114/56 99 07/21/21 15:15 75 16 110/59 99 07/21/21 15:08 97 F L 78 16 103/55 99 07/21/21 12:29 98.2 F 78 18 154/68 94 L Intake and Output 07/21/21 07/22/21 07/22/21 22:59 06:59 14:59 Intake Total 719 584 221.5 Output Total 690 205 50 Balance 29 379 171.5 Intake: IV 289 104 161.5 0.9 Sodium Chloride 30 80 20 Mvi, Adult No.4 with Vit 120 K 10 ml Trace (Conc-1Ml/ Dose) 1 ml Sodium Acetate 20 meq In Amino Acid 5%- D20w+Lytes*E* 1,000 ml @ 60 mls/hr IV .BY DURATION [facility] Rx#:[id number] Piperacillin-Tazobactam 3 12.5 .375 gm In Sodium Chloride 0.9% 100 ml @ 25 mls/hr IVPB Q12HR [facility] Rx #:[id number] Pressure Bag 9 24 9 Intake, IV Titration 430 480 60 Amount Amino Acid 5%-D20w+Lytes* 30 E* 1,000 ml @ 30 mls/hr IV .BY DURATION [facility] Rx#: [id number] Mvi, Adult No.4 with Vit 300 480 60 K 10 ml Trace (Conc-1Ml/ Dose) 1 ml In Amino Acid 5%-D20w+Lytes*E* 1,000 ml @ 60 mls/hr IV .BY DURATION [facility] Rx#: [id number] Piperacillin-Tazobactam 3 100 .375 gm In Sodium Chloride 0.9% 100 ml @ 25 mls/hr IVPB Q12HR [facility] Rx #:[id number] Output: Gastric Drainage 400 Urine 290 205 50 Other: Voiding Method Indwelling Catheter Indwelling Catheter Indwelling Catheter Weight 44 kg ABP, PAP, CO, CI - Last 8 Hours Arterial Blood Pressure 124/52 Arterial Blood Pressure 173/78 Arterial Blood Pressure 140/61 Arterial Blood Pressure 133/57 Arterial Blood Pressure 132/54 Arterial Blood Pressure 138/58 Arterial Blood Pressure 133/57 Arterial Blood Pressure 132/58 Arterial Blood Pressure 124/52 Arterial Blood Pressure 125/56 Arterial Blood Pressure 129/54 Arterial Blood Pressure 122/51 Arterial Blood Pressure 114/49 Arterial Blood Pressure 110/48 GENERAL EXAM: Alert, active, comfortable in no apparent distress. HEAD: Normocephalic. EYES: Normal reaction of pupils, equal size. NOSE: Nasogastric tube secured in place. Clear with pink turbinates. THROAT: No erythema or exudates. NECK: No masses, no JVD. CHEST: No chest wall deformity. LUNGS: Equal air entry with no crackles, wheeze, rhonchi or dullness. CVS: S1 and S2 normal with no audible murmur, regular rhythm. ABDOMEN: Surgical dressing dry and intact. No hepatosplenomegaly, normal bowel sounds, no guarding or rigidity. SPINE: No scoliosis or deformity SKIN: No rashes CENTRAL NERVOUS SYSTEM: No focal deficits, tone is normal in all 4 extremities. EXTREMITIES: There is no peripheral edema. No clubbing, no cyanosis. Peripheral pulses are intact. Results - Laboratory Findings CBC and BMP: 07/22/21 04:00 07/22/21 04:00 PT/INR, D-dimer PT 10.0 sec (9.0-12.0) 07/12/21 15:35 INR 0.9 (<1.2) 07/12/21 15:35 Abnormal lab findings: Abnormal Labs 07/12/21 07/12/21 07/12/21 15:35 15:35 21:01 RBC Hgb Hct MCHC MPV Lymphocytes # APTT 18.3 L Sodium Potassium Chloride 108 H Carbon Dioxide 19 L BUN 39 H Creatinine 1.85 H Est GFR (CKD-EPI)AfAm Est GFR (CKD-EPI)NonAf Glucose 119 H POC Glucose (mg/dL) Calcium Troponin I Total Protein 8.3 H Albumin Procalcitonin Urine Protein 1+ H Urine Ketones 1+ H Urine Blood Trace H Urine Mucus Rare H 07/13/21 07/14/21 07/14/21 07:49 06:21 06:21 RBC Hgb Hct MCHC MPV Lymphocytes # APTT Sodium Potassium Chloride 110 H 109 H Carbon Dioxide BUN 36 H 31 H Creatinine 1.74 H 1.64 H Est GFR (CKD-EPI)AfAm Est GFR (CKD-EPI)NonAf Glucose 109 H 120 H POC Glucose (mg/dL) Calcium Troponin I Total Protein Albumin 3.3 L Procalcitonin 0.12 H Urine Protein Urine Ketones Urine Blood Urine Mucus 07/15/21 07/16/21 07/18/21 06:15 06:40 06:46 RBC 3.74 L Hgb 10.8 L Hct 34.9 L MCHC 30.9 L MPV 9.2 L Lymphocytes # APTT Sodium 133 L Potassium 3.3 L Chloride 109 H Carbon Dioxide 18 L BUN 26 H 25 H Creatinine 1.29 H 1.30 H Est GFR (CKD-EPI)AfAm Est GFR (CKD-EPI)NonAf Glucose 111 H 135 H POC Glucose (mg/dL) Calcium Troponin I Total Protein Albumin Procalcitonin Urine Protein Urine Ketones Urine Blood Urine Mucus 07/18/21 07/19/21 07/19/21 06:46 05:33 08:06 RBC Hgb Hct MCHC MPV Lymphocytes # APTT Sodium Potassium Chloride 112 H 110 H Carbon Dioxide BUN 29 H Creatinine 1.48 H Est GFR (CKD-EPI)AfAm 41.5 L Est GFR (CKD-EPI)NonAf 35.8 L Glucose 69 L POC Glucose (mg/dL) 68 L Calcium 7.8 L Troponin I Total Protein Albumin Procalcitonin Urine Protein Urine Ketones Urine Blood Urine Mucus 07/19/21 07/19/21 07/20/21 16:37 23:55 06:20 RBC Hgb Hct MCHC MPV Lymphocytes # APTT Sodium Potassium Chloride Carbon Dioxide BUN Creatinine Est GFR (CKD-EPI)AfAm Est GFR (CKD-EPI)NonAf Glucose POC Glucose (mg/dL) 155 H 174 H 156 H Calcium Troponin I Total Protein Albumin Procalcitonin Urine Protein Urine Ketones Urine Blood Urine Mucus 07/20/21 07/20/21 07/20/21 06:51 06:51 11:32 RBC 3.68 L Hgb 10.6 L Hct 33.8 L MCHC 31.4 L MPV 9.2 L Lymphocytes # 0.88 L APTT Sodium 134 L Potassium Chloride Carbon Dioxide BUN 27 H Creatinine 1.39 H Est GFR (CKD-EPI)AfAm Est GFR (CKD-EPI)NonAf Glucose 152 H POC Glucose (mg/dL) 140 H Calcium 8.2 L Troponin I Total Protein Albumin Procalcitonin Urine Protein Urine Ketones Urine Blood Urine Mucus 04/07/20/21 07/21/21 17:16 23:38 05:43 RBC Hgb Hct MCHC MPV Lymphocytes # APTT Sodium 133 L Potassium Chloride Carbon Dioxide BUN 25 H Creatinine 1.25 H Est GFR (CKD-EPI)AfAm Est GFR (CKD-EPI)NonAf Glucose 136 H POC Glucose (mg/dL) 138 H 139 H Calcium 7.9 L Troponin I Total Protein 5.9 L Albumin 2.5 L Procalcitonin Urine Protein Urine Ketones Urine Blood Urine Mucus 07/21/21 07/21/21 07/21/21 05:43 05:43 05:46 RBC 3.75 L Hgb 11.0 L Hct MCHC MPV Lymphocytes # 0.8 L APTT Sodium Potassium Chloride Carbon Dioxide BUN Creatinine Est GFR (CKD-EPI)AfAm Est GFR (CKD-EPI)NonAf Glucose POC Glucose (mg/dL) 128 H Calcium Troponin I 0.058 H* Total Protein Albumin Procalcitonin Urine Protein Urine Ketones Urine Blood Urine Mucus 07/21/21 07/21/21 07/21/21 11:17 16:34 23:14 RBC Hgb Hct MCHC MPV Lymphocytes # APTT Sodium Potassium Chloride Carbon Dioxide BUN Creatinine Est GFR (CKD-EPI)AfAm Est GFR (CKD-EPI)NonAf Glucose POC Glucose (mg/dL) 136 H 150 H 251 H Calcium Troponin I Total Protein Albumin Procalcitonin Urine Protein Urine Ketones Urine Blood Urine Mucus 07/22/21 07/22/21 07/22/21 04:00 04:00 05:22 RBC 3.75 L Hgb 11.2 L Hct MCHC MPV Lymphocytes # APTT Sodium 132 L Potassium Chloride Carbon Dioxide BUN 35 H Creatinine 1.27 H Est GFR (CKD-EPI)AfAm Est GFR (CKD-EPI)NonAf Glucose 227 H POC Glucose (mg/dL) 196 H Calcium 7.8 L Troponin I Total Protein 5.4 L Albumin 2.3 L Procalcitonin Urine Protein Urine Ketones Urine Blood Urine Mucus Assessment and Plan Assessment: 1 Abdominal pain status post exploratory laparotomy with lysis of adhesions and small bowel resection. A #1 2 Acute hypoxemic respiratory failure secondary to fluid volume overload 3 Acute exacerbation of diastolic congestive heart failure 4 History of COPD 5 History of previous smoking 6 Chronic kidney disease stage III 7 Rheumatoid arthritis 8 Hypertension 9 Chronic celiac disease 10 Chronic diverticulosis Plan: The patient was seen and evaluated Add incentive spirometer and cough and deep breathing exercises Titrate down the FiO2 as tolerated Transfer out of the ICU to a Regular Medical Floor Increase her activity as tolerated We will continue to follow and make further recommendations based on her clinical status I have personally seen and examined the patient, performed the documentation and the assessment and plan as written. Number of minutes spent on the visit: 20.
--- NOTE | 2021-07-22 10:28 | P.PN ---
Subjective This is a 85-year-old patient of Dr. Johnson. Chronic stable medical conditions include COPD, GERD, rheumatoid arthritis, celiac disease, chronic urinary incontinence, lumbar radiculopathy , diverticulosis. Patient does use a walker. She was admitted here in January 2021 with severe bowel spasms. Patient yesterday after started having increasing abdominal pain across. Leg cramping. Along with nausea vomiting. Not able to keep anything down. Branscomb hot. Normally has a bowel movement every other day. Had a bowel movement yesterday. No improvement. Computed tomography scan of the ER showed air-fluid levels. Made nothing by mouth. Surgery consulted. Admitted with acute possible colitis with severe bowel spasms. July 14: Slurring significant abdominal pain. Scheduled Bentyl added. Continue with IV fluids. IV Zosyn. Remains nothing by mouth. July 15: NG tube was placed yesterday for small bowel obstruction. Output noted. Abdominal distention better. Decreased abdominal pain. Laying in bed. Empirically and IV Zosyn. Catapres patch 0.2 started for uncontrolled blood pressure. July 16: NG tube court accidentally pulled out. Started on clear liquids by surgery. Some abdominal distention present. Did pass flatus. Laying in bed. No nausea vomiting July 17: Patient still having abdominal distention. Abdominal pain. Some flatus. Abdominal x-ray reviewed. Significant air-fluid levels. Discussed with patient and at bedside. On the option is to try NG tube again. Patient is reluctant but agreed. Otherwise next definitely surgery. Discussed with Dr. Thomas from surgery. He concurs July 18: Nursing staff unable to place NG tube. Abdominal distention. Nausea vomiting. No flatus or BM. Patient will need surgical intervention. Discussed with patient. A bit apprehensive. Patient counseled July 19: Patient was hypoglycemic this morning. Ordered amp of D50. 1 mg of glucagon IV. And D5W. Earlier patient's has spoken to Dr. Stauffer and surgery has been postponed for at least couple of days depending how patient does with NG tube. About 3 and a cc was obtained overnight. Decreased abdominal pain. No factors or BM. Had a very lengthy discussion with the patient's and the patient the bedside. PICC line and TPN ordered July 20: Patient had a PICC line placed yesterday. TPN and lipids started. Patient had about 400 mL output yesterday. No flatus. Abdominal distention. Decreased pain. Discussed with the patient and with Dr. Stauffer later. For s manjit tomorrow. Subjective: Resuming the care of the patient 07/21/2021 This is a pleasant 85 years old female with multiple medical problems who was admitted to the hospital on 07/13 with signs and symptoms of bowel obstruction. She was treated initially conservatively with the plan for her to go for exploratory laparotomy with possible lysis of adhesions today 07/21. NG tube in place and she was sitting in bed, looks calm. He is fully awake. She is complaining of from central chest pain since yesterday about 5-09/10, with no associated dyspnea or coughing. On the tachypneic. She is denying any abdominal pain. No abdominal distention and NG tube in place. The Vitas looks stable and she is saturating 91% to 92% on 3 L oxygen via nasal cannula. CBC is unremarkable. Creatinine trending down to 1.25. Sodium 133. Troponin mildly elevated at 0.05, it was negative on admission however patient has elevated troponin on 01/2021 at 0.04-0.05. Chest x-ray, reviewed by myself, showing increased venous congestion with possible mild right pleural effusion. EKG showing normal sinus rhythm at 80, no significant ST-T changes and QTC 431 Currently she is off therapeutic IV fluids. We will give 1 dose of IV Lasix 20 mg. Cardiology been consulted for preop evaluation and bedside nurse informed 07/22/2021 Patient is a status post exploratory laparotomy and small bowel resection with adhesions of lysis. She is awake and alert although she looks tired, she is hemodynamically stable and labs are stable as well. Postoperatively she was monitored in the ICU Currently kept on Zosyn. No IV fluid. Patient is doing well and might be transferred out of the ICU today Objective - Vital Signs Vital signs: Vital Signs Temp 98.9 F 07/22/21 08:00 Pulse 99 07/22/21 09:00 Resp 11 L 07/22/21 09:00 BP 131/67 07/22/21 09:00 Pulse Ox 96 07/22/21 09:00 Intake & Output 07/21/21 07/22/21 07/22/21 18:59 06:59 18:59 Intake Total 1340 963 221.5 Output Total 240 805 50 Balance 1100 158 171.5 Weight 44 kg Intake: IV 1250 143 161.5 0.9 Sodium Chloride 110 20 Mvi, Adult No.4 with Vit 120 K 10 ml Trace (Conc-1Ml/ Dose) 1 ml Sodium Acetate 20 meq In Amino Acid 5%- D20w+Lytes*E* 1,000 ml @ 60 mls/hr IV .BY DURATION [facility] Rx#:[id number] Piperacillin-Tazobactam 3 12.5 .375 gm In Sodium Chloride 0.9% 100 ml @ 25 mls/hr IVPB Q12HR [facility] Rx #:[id number] Pressure Bag 33 9 Intake, IV Titration 90 820 60 Amount Amino Acid 5%-D20w+Lytes* 30 E* 1,000 ml @ 30 mls/hr IV .BY DURATION [facility] Rx#: [id number] Mvi, Adult No.4 with Vit 60 720 60 K 10 ml Trace (Conc-1Ml/ Dose) 1 ml In Amino Acid 5%-D20w+Lytes*E* 1,000 ml @ 60 mls/hr IV .BY DURATION [facility] Rx#: [id number] Piperacillin-Tazobactam 3 100 .375 gm In Sodium Chloride 0.9% 100 ml @ 25 mls/hr IVPB Q12HR [facility] Rx #:[id number] Output: Gastric Drainage 400 Urine 190 405 50 Estimated Blood Loss 50 Other: Voiding Method Diaper Indwelling Catheter Indwelling Catheter Incontinent ABP, PAP, CO, CI - Last Documented Arterial Blood Pressure 124/52 - Exam GENERAL: The patient is alert and oriented x3, not in any acute distress. Well developed, well nourished. HEENT: Pupils are round and equally reacting to light. EOMI. No scleral icterus. No conjunctival pallor. Normocephalic, atraumatic. No pharyngeal erythema. No thyromegaly. CARDIOVASCULAR: S1 and S2 present. No murmurs, rubs, or gallops. PULMONARY: Chest is clear to auscultation, no wheezing or crackles. -ABDOMEN: Soft, nontender, nondistended, normoactive bowel sounds. No palpable organomegaly. NG tube in place. Surgical wound MUSCULOSKELETAL: No joint swelling or deformity. EXTREMITIES: No cyanosis, clubbing, or pedal edema. NEUROLOGICAL: Gross neurological examination did not reveal any focal deficits. SKIN: No rashes. no petechiae. - Labs CBC & Chem 7: 07/22/21 04:00 07/22/21 04:00 Labs: Abnormal Lab Results - Last 24 Hours (Table) 07/21/21 07/21/21 07/21/21 Range/Units 11:17 16:34 23:14 RBC (3.80-5.40) m/uL Hgb (11.4-16.0) gm/dL Sodium (137-145) mmol/L BUN (7-17) mg/dL Creatinine (0.52-1.04) mg/dL Glucose (74-99) mg/dL POC Glucose (mg/dL) 136 H 150 H 251 H (75-99) mg/dL Calcium (8.4-10.2) mg/dL Total Protein (6.3-8.2) g/dL Albumin (3.5-5.0) g/dL 07/22/21 07/22/21 07/22/21 Range/Units 04:00 04:00 05:22 RBC 3.75 L (3.80-5.40) m/uL Hgb 11.2 L (11.4-16.0) gm/dL Sodium 132 L (137-145) mmol/L BUN 35 H (7-17) mg/dL Creatinine 1.27 H (0.52-1.04) mg/dL Glucose 227 H (74-99) mg/dL POC Glucose (mg/dL) 196 H (75-99) mg/dL Calcium 7.8 L (8.4-10.2) mg/dL Total Protein 5.4 L (6.3-8.2) g/dL Albumin 2.3 L (3.5-5.0) g/dL Assessment and Plan Assessment: - Acute small bowel obstruction. Empirically IV Zosyn for possible enteritis/colitis.: She is status post for exploratory laparotomy on 07/21 with lysis of adhesions and small bowel resection Right colostomy back -Chest pain with mild tachypnea, related to mild acute CHF, diastolic with EF 55-60% per echocardiogram on 01/2021 Cardiology team consulted for preop evaluation. Give 1 dose of IV Lasix 20 mg Start breathing treatment when necessary -COPD, in a previous smoker Albuterol when necessary -Chronic kidney disease stage III from nephrosclerosis Follow renal function -GERD Omeprazole 20 mg twice a day -Rheumatoid arthritis Pain control -Essential hypertension, Catapres patch 0.2 -Chronic celiac disease Gluten-free diet -Hypoglycemia from poor oral intake: Better Improved. -Overactive bladder causing incontinence uses a brief - Colonic diverticulosis, Follow clinically -Acute kidney injury, prerenal: Better Admission creatinine 1.85. Currently 1.2 -Chronic kidney disease, stage III Secondary to hypertension -Moderate protein calorie malnutrition Supplemental nutrition IV TPN and lipids started DVT prophylaxis: Lovenox GI prophylaxis: Protonix Prognosis: Guarded
[2021-07-22] MEDS: 1: MVI, ADULT NO.4 WITH VIT K 10 ML, TRACE (CONC-1ML/DOSE) 1 ML, SODIUM ACETATE 20 MEQ i IV SCH ×4 (10:37)
[2021-07-22] MEDS: 1: MVI, ADULT NO.4 WITH VIT K 10 ML, TRACE (CONC-1ML/DOSE) 1 ML in AMINO ACID 5%-D20W+LY IV SCH ×3 (10:49)
[2021-07-22] MEDS: cloNIDine 0.2 MG/24HR PATCH TRANSDERM SCH (11:03)
--- NOTE | 2021-07-22 11:48 | P.PN ---
Subjective Progress Note Date: 07/22/21 CHIEF COMPLAINT: Abdominal pain HISTORY OF PRESENT ILLNESS: Patient is postop day #1 status post exploratory laparotomy, lysis of adhesions and small bowel resection for small bowel obstruction with adhesions. Patient is currently in the ICU. She has NG tube in place with 300 mL bilious output. Patient's abdominal pain is controlled. She denies any nausea. Denies any flatus or all movements. Her vitals are stable. She has been seen by the critical care service. They have cleared her for her transfer to regular medical floor. Patient is receiving TPN. IV fluids will be adjusted to equal a total 125 mL per hour with TPN plus Fluids. Urine output has been marginal. Afebrile. WBC is 10 hemoglobin is 11.2 platelets 306 sodium was 132 potassium is 3.8 creatinine 1.27 magnesium 2.0 Patient seen and examined with Dr. hicks PHYSICAL EXAM: VITAL SIGNS: Reviewed. GENERAL: Well-developed in no acute distress. HEENT: No sclera icterus. Extraocular movements grossly intact. Moist buccal mucosa. Head is atraumatic, normocephalic. ABDOMEN: Mildly distended. Tenderness to palpation of the lower abdomen NEUROLOGIC: Alert and oriented. Cranial nerves II through XII grossly intact. ASSESSMENT: 1. Small bowel obstruction with adhesions status post exploratory laparotomy, lysis of adhesions and small bowel resection 2. Abdominal pain 3. Hypokalemia and hypomagnesemia improved PLAN: -Okay to transfer out of ICU -Continue NG tube for decompression -Keep patient nothing by mouth -Continue IV fluids -Continue supportive care -Continue pain medication as needed -Incentive spirometer ordered -GI prophylaxis Protonix and DVT prophylaxis Lovenox Physician Paper Bag Maker note has been reviewed by physician. Signing provider agrees with the documented findings, assessment, and plan of care. Objective - Vital Signs Vital signs: Vital Signs Temp 98.9 F 07/22/21 08:00 Pulse 98 07/22/21 11:00 Resp 12 07/22/21 11:00 BP 128/59 07/22/21 11:00 Pulse Ox 98 07/22/21 11:00 Intake & Output 07/21/21 07/22/21 07/22/21 18:59 06:59 18:59 Intake Total 1340 963 434.5 Output Total 240 805 85 Balance 1100 158 349.5 Weight 44 kg Intake: IV 1250 143 374.5 0.9 Sodium Chloride 110 85 Mvi, Adult No.4 with Vit 240 K 10 ml Trace (Conc-1Ml/ Dose) 1 ml Sodium Acetate 20 meq In Amino Acid 5%- D20w+Lytes*E* 1,000 ml @ 60 mls/hr IV .BY DURATION [facility] Rx#:[id number] Piperacillin-Tazobactam 3 37.5 .375 gm In Sodium Chloride 0.9% 100 ml @ 25 mls/hr IVPB Q12HR [facility] Rx #:[id number] Pressure Bag 33 12 Intake, IV Titration 90 820 60 Amount Amino Acid 5%-D20w+Lytes* 30 E* 1,000 ml @ 30 mls/hr IV .BY DURATION [facility] Rx#: [id number] Mvi, Adult No.4 with Vit 60 720 60 K 10 ml Trace (Conc-1Ml/ Dose) 1 ml In Amino Acid 5%-D20w+Lytes*E* 1,000 ml @ 60 mls/hr IV .BY DURATION [facility] Rx#: [id number] Piperacillin-Tazobactam 3 100 .375 gm In Sodium Chloride 0.9% 100 ml @ 25 mls/hr IVPB Q12HR [facility] Rx #:[id number] Output: Gastric Drainage 400 Urine 190 405 85 Estimated Blood Loss 50 Other: Voiding Method Diaper Indwelling Catheter Indwelling Catheter Incontinent ABP, PAP, CO, CI - Last Documented Arterial Blood Pressure 137/57 - Labs CBC & Chem 7: 07/22/21 04:00 07/22/21 04:00 Labs: Abnormal Lab Results - Last 24 Hours (Table) 07/21/21 07/21/21 07/22/21 Range/Units 16:34 23:14 04:00 RBC (3.80-5.40) m/uL Hgb (11.4-16.0) gm/dL Sodium 132 L (137-145) mmol/L BUN 35 H (7-17) mg/dL Creatinine 1.27 H (0.52-1.04) mg/dL Glucose 227 H (74-99) mg/dL POC Glucose (mg/dL) 150 H 251 H (75-99) mg/dL Calcium 7.8 L (8.4-10.2) mg/dL Total Protein 5.4 L (6.3-8.2) g/dL Albumin 2.3 L (3.5-5.0) g/dL 07/22/21 07/22/21 Range/Units 04:00 05:22 RBC 3.75 L (3.80-5.40) m/uL Hgb 11.2 L (11.4-16.0) gm/dL Sodium (137-145) mmol/L BUN (7-17) mg/dL Creatinine (0.52-1.04) mg/dL Glucose (74-99) mg/dL POC Glucose (mg/dL) 196 H (75-99) mg/dL Calcium (8.4-10.2) mg/dL Total Protein (6.3-8.2) g/dL Albumin (3.5-5.0) g/dL
[2021-07-22 11:50] LABS: Glucose,Whole Blood 169 mg/dL (75-99)
--- NOTE | 2021-07-22 12:37 | P.PN ---
Subjective Patient is seen for follow-up for chronic kidney disease with an element of acute kidney injury which has improved. Patient has underlying CK D stage III with baseline creatinine around 1.3-1.5 mg/dL. Etiology is nephrosclerosis. Patient was admitted with abdominal pain and bowel obstruction. Patient is status post explorative laparotomy with lysis of adhesions and bowel resection done on 07/21/2021 Currently in the ICU. Patient is complaining of pain otherwise she has been hemodynamically stable. Urine output is maintained. Currently maintained on TPN and LR. Total IV fluids at 1 20 mL an hour. Objective - Vital Signs Vital signs: Vital Signs Temp 98.9 F 07/22/21 08:00 Pulse 98 07/22/21 11:00 Resp 12 07/22/21 11:00 BP 128/59 07/22/21 11:00 Pulse Ox 98 07/22/21 11:00 Intake & Output 07/21/21 07/22/21 07/22/21 18:59 06:59 18:59 Intake Total 1340 963 434.5 Output Total 240 805 85 Balance 1100 158 349.5 Weight 44 kg Intake: IV 1250 143 374.5 0.9 Sodium Chloride 110 85 Mvi, Adult No.4 with Vit 240 K 10 ml Trace (Conc-1Ml/ Dose) 1 ml Sodium Acetate 20 meq In Amino Acid 5%- D20w+Lytes*E* 1,000 ml @ 60 mls/hr IV .BY DURATION [facility] Rx#:[id number] Piperacillin-Tazobactam 3 37.5 .375 gm In Sodium Chloride 0.9% 100 ml @ 25 mls/hr IVPB Q12HR [facility] Rx #:[id number] Pressure Bag 33 12 Intake, IV Titration 90 820 60 Amount Amino Acid 5%-D20w+Lytes* 30 E* 1,000 ml @ 30 mls/hr IV .BY DURATION [facility] Rx#: [id number] Mvi, Adult No.4 with Vit 60 720 60 K 10 ml Trace (Conc-1Ml/ Dose) 1 ml In Amino Acid 5%-D20w+Lytes*E* 1,000 ml @ 60 mls/hr IV .BY DURATION [facility] Rx#: [id number] Piperacillin-Tazobactam 3 100 .375 gm In Sodium Chloride 0.9% 100 ml @ 25 mls/hr IVPB Q12HR [facility] Rx #:[id number] Output: Gastric Drainage 400 Urine 190 405 85 Estimated Blood Loss 50 Other: Voiding Method Diaper Indwelling Catheter Indwelling Catheter Incontinent ABP, PAP, CO, CI - Last Documented Arterial Blood Pressure 137/57 - Exam Awake, comfortable, not in any acute distress. NG tube in place Examination of the heart S1 and S2 Examination lungs bilateral breath sounds are heard Abdomen is soft, tender. 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 - Labs CBC & Chem 7: 07/22/21 04:00 07/22/21 04:00 Labs: Abnormal Lab Results - Last 24 Hours (Table) 07/21/21 07/21/21 07/22/21 Range/Units 16:34 23:14 04:00 RBC (3.80-5.40) m/uL Hgb (11.4-16.0) gm/dL Sodium 132 L (137-145) mmol/L BUN 35 H (7-17) mg/dL Creatinine 1.27 H (0.52-1.04) mg/dL Glucose 227 H (74-99) mg/dL POC Glucose (mg/dL) 150 H 251 H (75-99) mg/dL Calcium 7.8 L (8.4-10.2) mg/dL Total Protein 5.4 L (6.3-8.2) g/dL Albumin 2.3 L (3.5-5.0) g/dL 07/22/21 07/22/21 07/22/21 Range/Units 04:00 05:22 11:48 RBC 3.75 L (3.80-5.40) m/uL Hgb 11.2 L (11.4-16.0) gm/dL Sodium (137-145) mmol/L BUN (7-17) mg/dL Creatinine (0.52-1.04) mg/dL Glucose (74-99) mg/dL POC Glucose (mg/dL) 196 H 169 H (75-99) mg/dL Calcium (8.4-10.2) mg/dL Total Protein (6.3-8.2) g/dL Albumin (3.5-5.0) g/dL Assessment and Plan Assessment: 1. Acute kidney injury prerenal currently improved with IV hydration UA shows 1+ protein. Computed tomography scan shows no evidence of hydronephrosis, although fullness of bilateral renal pelvises noted. 2. Chronic kidney disease NKF stage IIIB with baseline creatinine 1.3-1.5 mg/dL. Etiology nephrosclerosis. 3. Bowel obstruction being followed by general surgery, currently with NG tube in place, status post explorative laparotomy and lysis of adhesions and lysis of adhesions on 07/21/2021 Plan: Continue IV hydration
[2021-07-22] MEDS: LACTATED RINGERS 1,000 ML IV SCH (12:52)
[2021-07-22 17:35] LABS: Glucose,Whole Blood 165 mg/dL (75-99)
[2021-07-22 23:28] LABS: Glucose,Whole Blood 148 mg/dL (75-99)
[2021-07-23] MEDS: HYDROmorphone 1 MG/ML 1 ML SYRINGE IVP PRN ×4 (00:30→09:03)
[2021-07-23] MEDS: 1: MVI, ADULT NO.4 WITH VIT K 10 ML, TRACE (CONC-1ML/DOSE) 1 ML, SODIUM ACETATE 20 MEQ i IV SCH ×8 (01:16→15:44)
[2021-07-23] MEDS: HYDROmorphone 0.5 MG/0.5 ML SYRINGE IVP PRN ×2 (02:42→22:26)
[2021-07-23 05:05] LABS: Glucose,Whole Blood 169 mg/dL (75-99)
[2021-07-23] MEDS: INSULIN ASPART (NovoLOG) 100 UNIT/ML VIAL SQ SCH ×3 (05:06→17:03)
[2021-07-23] MEDS: LACTATED RINGERS 1,000 ML IV SCH (05:11)
[2021-07-23] MEDS: PIPERACILLIN-TAZOBACTAM 3.375 GM in SODIUM CHLORIDE 0.9% 100 ML IVPB SCH ×2 (06:51→20:13)
[2021-07-23] MEDS: ENOXAPARIN 30 MG/0.3 ML SYRINGE SQ SCH (06:51)
[2021-07-23] MEDS: OXYBUTYNIN CHLORIDE 5 MG TAB PO SCH ×2 (06:51→20:12)
[2021-07-23] MEDS: DICYCLOMINE 10 MG CAP PO SCH ×5 (06:51→20:12)
[2021-07-23 06:54] LABS: ALT 11 U/L (4-34); AST 24 U/L (14-36); African American GFR (CKD) 44 (>60 ml/min/1.73 sqM); Albumin 2.3 g/dL (3.5-5.0); Albumin/Globulin Ratio 0.7; Alkaline Phosphatase 75 U/L (38-126); Anion Gap 6 mmol/L; Blood Urea Nitrogen 42 mg/dL (7-17); Carbon Dioxide 26 mmol/L (22-30); Chloride 104 mmol/L (98-107); Globulin 3.3 g/dL; Glucose 157 mg/dL (74-99); Magnesium 2.1 mg/dL (1.6-2.3); Non-African American GFR(CKD) 38 (>60 ml/min/1.73 sqM); Phosphorus 3.2 mg/dL (2.5-4.5); Potassium 4.2 mmol/L (3.5-5.1); Sodium 136 mmol/L (137-145); Total Bilirubin 0.4 mg/dL (0.2-1.3); Total Protein 5.6 g/dL (6.3-8.2)
[2021-07-23] MEDS: PANTOPRAZOLE 40 MG/10 ML VIAL IVP SCH (07:23)
--- NOTE | 2021-07-23 10:57 | P.PN ---
Subjective This is a pleasant 85-year-old female past medical history significant for Dementia CVA/TIA, chronic kidney disease, GERD, COPD, cerebral aneurysm, a bdominal aortic aneurysm, seizures, diverticulosis, skin cancer. She does not follow with a recording engineer. She did see Dr. Aguiar in 2012 for chest pain and underwent a Lexiscan stress test which was negative for reversible ischemia and an echocardiogram with Normal EF. We have been asked to see in consultation for Pre-Op Evaluation. Patient presents emergency department on 07/12/2021 with abdominal pain. Small bowel obstruction was diagnosed. Surgery evaluated the patient. Initially was treated with NG tube, IV antibiotics, supportive care and monitored. Repeat CT abdomen and pelvis on 07/20/2021 Report revealed highly suggestive of acute high-grade mechanical small bowel structural transition point in the left side of the abdomen. Underlying etiology could be related to adhesion however internal hernia or normal bowel regurgitation cannot be excluded. Recommend surgical consultation is now artery performed. Bowel ischemia cannot be excluded. Patient underwent Exploratory laparotomy with lysis of adhesions on 07/21/[address] Stauffer. 07/23/2021 Patient seen and examined at bedside, she is on 4S, transferred out of ICU yesterday. She is lying flat comfortably in bed. Does have some abdominal pain. No chest pain or shortness of breath. She is hemodynamically stable. Confused. She is NPO. Currently maintained on clonidine patch, TPN, LR, IV antibiotics. She is tachycardic this morning low 100s, sinus on exam. Continues to have NG tube. Echocardiogram revealed EF of 5560 %, no significant wall motion abnormalities. PHYSICAL EXAMINATION Blood pressure 147/82, heart rate 108, afebrile, saturations 95% on 3 L nasal cannula CONSTITUTIONAL: No apparent distress. HEENT: Neck Supple. No JVD CHEST EXAMINATION: Lungs are diminished in the bases to auscultation. HEART EXAMINATION: Regular rate and rhythm. S1, S2 heard. No murmurs, gallops or rub. ABDOMEN: Distended +Tenderness to palpation to the middle and lower abdomen EXTREMITIES: no lower extremity edema and no calf tenderness. SKIN: warm, dry, pale NEUROLOGIC EXAMINATION: Patient is awake, alert and oriented to person. ASSESSMENT Abdominal Pain Small bowel obstruction Elevated troponin, unclear significance at this time, no rise and fall pattern Chest discomfort on 07/21/21, appears non-cardiac in etiology, patient states it is more secondary to her NG tube discomfort. Sinus tachycarida Acute on Chronic kidney disease, improving History of CVA/TIA History of COPD History of cerebral aneurysm Abdominal aortic aneurysm History of seizures Dementia PLAN From a cardiology perspective, no further change in medication regimen at this time. Continue supportive care We will follow the patient as needed. Please reconsult if any questions or concerns. Thank you kindly for this consultation. Nurse Practitioner note has been reviewed, I agree with a documented findings and plan of care. Patient was seen and examined. Objective - Vital Signs Vital signs: Vital Signs Temp 98.0 F 07/23/21 08:00 Pulse 108 H 07/23/21 08:00 Resp 16 07/23/21 08:00 BP 147/82 07/23/21 08:00 Pulse Ox 95 07/23/21 08:00 Intake & Output 07/22/21 07/23/21 07/23/21 18:59 06:59 18:59 Intake Total 982.0 2354 Output Total 385 630 Balance 597.0 1724 Weight 44 kg Intake: IV 922.0 815 0.9 Sodium Chloride 40 Lactated Ringers 1,000 ml 325 715 @ 65 mls/hr IV .[id number] [facility] Rx#:[id number] Mvi, Adult No.4 with Vit 480 K 10 ml Trace (Conc-1Ml/ Dose) 1 ml Sodium Acetate 20 meq In Amino Acid 5%- D20w+Lytes*E* 1,000 ml @ 60 mls/hr IV .BY DURATION [facility] Rx#:[id number] Piperacillin-Tazobactam 3 50.0 100 .375 gm In Sodium Chloride 0.9% 100 ml @ 25 mls/hr IVPB Q12HR [facility] Rx #:[id number] Pressure Bag 27 Intake, IV Titration 60 1539 Amount Mvi, Adult No.4 with Vit 60 K 10 ml Trace (Conc-1Ml/ Dose) 1 ml In Amino Acid 5%-D20w+Lytes*E* 1,000 ml @ 60 mls/hr IV .BY DURATION [facility] Rx#: [id number] Mvi, Adult No.4 with Vit 660 K 10 ml Trace (Conc-1Ml/ Dose) 1 ml Sodium Acetate 20 meq In Amino Acid 5%- D20w+Lytes*E* 1,000 ml @ 60 mls/hr IV .BY DURATION [facility] Rx#:[id number] Sodium Acetate 20 meq In 879 Amino Acid 5%-D20w+Lytes* E* 1,000 ml @ 60 mls/hr IV .BY DURATION [facility] Rx#: [id number] Output: Gastric Drainage 150 180 Urine 235 450 Other: Voiding Method Indwelling Catheter Indwelling Catheter Indwelling Catheter ABP, PAP, CO, CI - Last Documented Arterial Blood Pressure 154/64 - Labs CBC & Chem 7: 07/22/21 04:00 07/23/21 05:34 Labs: Abnormal Lab Results - Last 24 Hours (Table) 07/22/21 07/22/21 07/22/21 Range/Units 11:48 17:34 23:27 Sodium (137-145) mmol/L BUN (7-17) mg/dL Creatinine (0.52-1.04) mg/dL Glucose (74-99) mg/dL POC Glucose (mg/dL) 169 H 165 H 148 H (75-99) mg/dL Calcium (8.4-10.2) mg/dL Total Protein (6.3-8.2) g/dL Albumin (3.5-5.0) g/dL 07/23/21 07/23/21 Range/Units 05:03 05:34 Sodium 136 L (137-145) mmol/L BUN 42 H (7-17) mg/dL Creatinine 1.28 H (0.52-1.04) mg/dL Glucose 157 H (74-99) mg/dL POC Glucose (mg/dL) 169 H (75-99) mg/dL Calcium 8.0 L (8.4-10.2) mg/dL Total Protein 5.6 L (6.3-8.2) g/dL Albumin 2.3 L (3.5-5.0) g/dL
[2021-07-23 11:39] LABS: Glucose,Whole Blood 151 mg/dL (75-99)
[2021-07-23] MEDS: ACETAMINOPHEN IV (For NPO) 650 MG in EMPTY BAG 1 BAG IVPB SCH ×2 (11:59→17:03)
--- NOTE | 2021-07-23 12:48 | P.PN ---
Subjective Progress Note Date: 07/23/21 This is a 85-year-old female patient with a known history of cerebral aneurysm with surgical repair, abdominal aortic aneurysm with surgical repair, COPD, rheumatoid arthritis, renal disease. She presented here to the emergency room back on 07/12/2021 with complaints of abdominal discomfort. On 07/21/2021 she had undergone a exploratory laparotomy with lysis of adhesions and small bowel resection. She was admitted to the intensive care unit last evening for closer observation. She is seen today in consultation. She is awake and alert. She is maintaining O2 saturations on 6 L high flow nasal cannula. She has TPN running at 60 ML's per hour. She has normal saline running at 10 MLS when neces ananda. White count 10.0. Hemoglobin 11.2. Sodium 132. Potassium 3.8. BUN 35. Creatinine 1.27. Glucose 227. She is currently on antibiotics in the form of Zosyn. 6 here from yesterday revealed some pulmonary venous congestion with scattered infiltrates and pleural effusions. Borderline cardiomegaly. She'll be educated regarding use the incentive spirometer. Nasogastric tube remains in place. He's been afebrile. Hemodynamically stable. Abdominal dressing dry and intact. The patient is seen today 07/23/2021 in follow-up on the regular medical floor. She is currently resting quite comfortably in bed. Awake and alert in no acute distress. She is maintaining good O2 saturations in the mid 90s on 3 L/m per nasal cannula. Afebrile. Hemodynamically stable. Sodium 136. Potassium 4.2. Bicarb 26. BUN 42. Creatinine 1.28. Glucose 157. AST 24. ALT 11. Nasogastric tube remains in place. She is on TPN at 60 ML's per hour. Lactated Ringer's at 55 ML's per hour. Antibiotics in the form of Zosyn. She remains on bronchodilators. Objective - Vital Signs Vital signs: Vital Signs Temp 98.0 F 07/23/21 08:00 Pulse 108 H 07/23/21 08:00 Resp 16 07/23/21 08:00 BP 147/82 07/23/21 08:00 Pulse Ox 95 07/23/21 08:00 Intake & Output 07/22/21 07/23/21 07/23/21 18:59 06:59 18:59 Intake Total 982.0 2354 Output Total 385 630 Balance 597.0 1724 Weight 44 kg 44 kg Intake: IV 922.0 815 0.9 Sodium Chloride 40 Lactated Ringers 1,000 ml 325 715 @ 65 mls/hr IV .[id number] [facility] Rx#:[id number] Mvi, Adult No.4 with Vit 480 K 10 ml Trace (Conc-1Ml/ Dose) 1 ml Sodium Acetate 20 meq In Amino Acid 5%- D20w+Lytes*E* 1,000 ml @ 60 mls/hr IV .BY DURATION [facility] Rx#:[id number] Piperacillin-Tazobactam 3 50.0 100 .375 gm In Sodium Chloride 0.9% 100 ml @ 25 mls/hr IVPB Q12HR [facility] Rx #:[id number] Pressure Bag 27 Intake, IV Titration 60 1539 Amount Mvi, Adult No.4 with Vit 60 K 10 ml Trace (Conc-1Ml/ Dose) 1 ml In Amino Acid 5%-D20w+Lytes*E* 1,000 ml @ 60 mls/hr IV .BY DURATION [facility] Rx#: [id number] Mvi, Adult No.4 with Vit 660 K 10 ml Trace (Conc-1Ml/ Dose) 1 ml Sodium Acetate 20 meq In Amino Acid 5%- D20w+Lytes*E* 1,000 ml @ 60 mls/hr IV .BY DURATION [facility] Rx#:[id number] Sodium Acetate 20 meq In 879 Amino Acid 5%-D20w+Lytes* E* 1,000 ml @ 60 mls/hr IV .BY DURATION [facility] Rx#: [id number] Output: Gastric Drainage 150 180 Urine 235 450 Other: Voiding Method Indwelling Catheter Indwelling Catheter Indwelling Catheter ABP, PAP, CO, CI - Last Documented Arterial Blood Pressure 154/64 - Exam GENERAL EXAM: Alert, pleasant 85-year-old female patient, on 3 L nasal cannula, comfortable in no apparent distress. HEAD: Normocephalic. EYES: Normal reaction of pupils, equal size. NOSE: Nasogastric tube secured in place. Clear with pink turbinates. THROAT: No erythema or exudates. NECK: No masses, no JVD. CHEST: No chest wall deformity. LUNGS: Equal air entry with no crackles, wheeze, rhonchi or dullness. CVS: S1 and S2 normal with no audible murmur, regular rhythm. ABDOMEN: Surgical dressing dry and intact. No hepatosplenomegaly, normal bowel sounds, no guarding or rigidity. SPINE: No scoliosis or deformity SKIN: No rashes CENTRAL NERVOUS SYSTEM: No focal deficits, tone is normal in all 4 extremities. EXTREMITIES: There is no peripheral edema. No clubbing, no cyanosis. Peripheral pulses are intact. - Labs CBC & Chem 7: 07/22/21 04:00 07/23/21 05:34 Labs: Abnormal Lab Results - Last 24 Hours (Table) 07/22/21 07/22/21 07/23/21 Range/Units 17:34 23:27 05:03 Sodium (137-145) mmol/L BUN (7-17) mg/dL Creatinine (0.52-1.04) mg/dL Glucose (74-99) mg/dL POC Glucose (mg/dL) 165 H 148 H 169 H (75-99) mg/dL Calcium (8.4-10.2) mg/dL Total Protein (6.3-8.2) g/dL Albumin (3.5-5.0) g/dL 07/23/21 07/23/21 Range/Units 05:34 11:37 Sodium 136 L (137-145) mmol/L BUN 42 H (7-17) mg/dL Creatinine 1.28 H (0.52-1.04) mg/dL Glucose 157 H (74-99) mg/dL POC Glucose (mg/dL) 151 H (75-99) mg/dL Calcium 8.0 L (8.4-10.2) mg/dL Total Protein 5.6 L (6.3-8.2) g/dL Albumin 2.3 L (3.5-5.0) g/dL Assessment and Plan Assessment: 1 Abdominal pain status post exploratory laparotomy with lysis of adhesions and small bowel resection. Postoperative day #2 2 Acute hypoxemic respiratory failure secondary to fluid volume overload 3 Acute exacerbation of diastolic congestive heart failure 4 History of COPD 5 History of previous smoking 6 Chronic kidney disease stage III 7 Rheumatoid arthritis 8 Hypertension 9 Chronic celiac disease 10 Chronic diverticulosis Plan: The patient was seen and evaluated Labs and medications reviewed Titrate down the FiO2 as tolerated Increase her activity as tolerated Continue bronchodilators, Zosyn To need TPN for nutritional support We will continue to follow I have personally seen and examined the patient, performed the documentation and the assessment and plan as written. Number of minutes spent on the visit: 10.
--- NOTE | 2021-07-23 14:44 | P.PN ---
Subjective Progress Note Date: 07/23/21 CHIEF COMPLAINT: Abdominal pain HISTORY OF PRESENT ILLNESS: Patient is postop day #2 status post exploratory laparotomy, lysis of adhesions and small bowel resection for small bowel obstruction with adhesions. Patient was transferred out of the ICU yesterday. She does report abdominal pain. NG tube with 180 ML output. Her urine output has improved. No bowel activity reported. Afebrile. Tachycardic heart rate 108 sodium 106 potassium 4.2 creatinine 1.28 Patient seen and examined with Dr. hicks PHYSICAL EXAM: VITAL SIGNS: Reviewed. GENERAL: Well-developed in no acute distress. HEENT: No sclera icterus. Extraocular movements grossly intact. Moist buccal mucosa. Head is atraumatic, normocephalic. ABDOMEN: Mildly distended. Patient tenses her abdomen during palpation. Evidence of diffuse pain. NEUROLOGIC: Alert and oriented. Cranial nerves II through XII grossly intact. ASSESSMENT: 1. Small bowel obstruction with adhesions status post exploratory laparotomy, lysis of adhesions and small bowel resection 2. Abdominal pain 3. Hypokalemia and hypomagnesemia improved PLAN: -Discontinue NG tube -Keep patient nothing by mouth -Continue IV fluids -Continue supportive care -IV Tylenol added for pain -Continue pain medication as needed -Incentive spirometer ordered -GI prophylaxis Protonix and DVT prophylaxis Lovenox Physician [employer] Certified [employer] Associate note has been reviewed by physician. Signing provider agrees with the documented findings, assessment, and plan of care. Objective - Vital Signs Vital signs: Vital Signs Temp 98.0 F 07/23/21 08:00 Pulse 108 H 07/23/21 08:00 Resp 16 07/23/21 08:00 BP 147/82 07/23/21 08:00 Pulse Ox 95 07/23/21 08:00 Intake & Output 07/22/21 07/23/21 07/23/21 18:59 06:59 18:59 Intake Total 982.0 2354 Output Total 385 630 Balance 597.0 1724 Weight 44 kg 44 kg Intake: IV 922.0 815 0.9 Sodium Chloride 40 Lactated Ringers 1,000 ml 325 715 @ 65 mls/hr IV .[id number] [facility] Rx#:[id number] Mvi, Adult No.4 with Vit 480 K 10 ml Trace (Conc-1Ml/ Dose) 1 ml Sodium Acetate 20 meq In Amino Acid 5%- D20w+Lytes*E* 1,000 ml @ 60 mls/hr IV .BY DURATION [facility] Rx#:[id number] Piperacillin-Tazobactam 3 50.0 100 .375 gm In Sodium Chloride 0.9% 100 ml @ 25 mls/hr IVPB Q12HR [facility] Rx #:[id number] Pressure Bag 27 Intake, IV Titration 60 1539 Amount Mvi, Adult No.4 with Vit 60 K 10 ml Trace (Conc-1Ml/ Dose) 1 ml In Amino Acid 5%-D20w+Lytes*E* 1,000 ml @ 60 mls/hr IV .BY DURATION [facility] Rx#: [id number] Mvi, Adult No.4 with Vit 660 K 10 ml Trace (Conc-1Ml/ Dose) 1 ml Sodium Acetate 20 meq In Amino Acid 5%- D20w+Lytes*E* 1,000 ml @ 60 mls/hr IV .BY DURATION [facility] Rx#:[id number] Sodium Acetate 20 meq In 879 Amino Acid 5%-D20w+Lytes* E* 1,000 ml @ 60 mls/hr IV .BY DURATION [facility] Rx#: [id number] Output: Gastric Drainage 150 180 Urine 235 450 Other: Voiding Method Indwelling Catheter Indwelling Catheter Indwelling Catheter ABP, PAP, CO, CI - Last Documented Arterial Blood Pressure 154/64 - Labs CBC & Chem 7: 07/22/21 04:00 07/23/21 05:34 Labs: Abnormal Lab Results - Last 24 Hours (Table) 07/22/21 07/22/21 07/23/21 Range/Units 17:34 23:27 05:03 Sodium (137-145) mmol/L BUN (7-17) mg/dL Creatinine (0.52-1.04) mg/dL Glucose (74-99) mg/dL POC Glucose (mg/dL) 165 H 148 H 169 H (75-99) mg/dL Calcium (8.4-10.2) mg/dL Total Protein (6.3-8.2) g/dL Albumin (3.5-5.0) g/dL 07/23/21 07/23/21 Range/Units 05:34 11:37 Sodium 136 L (137-145) mmol/L BUN 42 H (7-17) mg/dL Creatinine 1.28 H (0.52-1.04) mg/dL Glucose 157 H (74-99) mg/dL POC Glucose (mg/dL) 151 H (75-99) mg/dL Calcium 8.0 L (8.4-10.2) mg/dL Total Protein 5.6 L (6.3-8.2) g/dL Albumin 2.3 L (3.5-5.0) g/dL
[2021-07-23 16:57] LABS: Glucose,Whole Blood 153 mg/dL (75-99)
--- NOTE | 2021-07-23 16:58 | P.PN ---
Subjective Patient is seen for follow-up for chronic kidney disease with an element of acute kidney injury which has improved. Patient has underlying CK D stage III with baseline creatinine around 1.3-1.5 mg/dL. Etiology is nephrosclerosis. Patient was admitted with abdominal pain and bowel obstruction. Patient is status post explorative laparotomy with lysis of adhesions and bowel resection done on 07/21/2021 Transferred out of the ICU. Patient is awake comfortable she has been requiring pain medications for abdominal pain. NG tube remains in place. Objective - Vital Signs Vital signs: Vital Signs Temp 98.1 F 07/23/21 14:00 Pulse 118 H 07/23/21 14:00 Resp 18 07/23/21 14:00 BP 136/74 07/23/21 14:00 Pulse Ox 96 07/23/21 14:00 Intake & Output 07/22/21 07/23/21 07/23/21 18:59 06:59 18:59 Intake Total 982.0 2354 Output Total 385 630 Balance 597.0 1724 Weight 44 kg 44 kg Intake: IV 922.0 815 0.9 Sodium Chloride 40 Lactated Ringers 1,000 ml 325 715 @ 65 mls/hr IV .[id number] [facility] Rx#:[id number] Mvi, Adult No.4 with Vit 480 K 10 ml Trace (Conc-1Ml/ Dose) 1 ml Sodium Acetate 20 meq In Amino Acid 5%- D20w+Lytes*E* 1,000 ml @ 60 mls/hr IV .BY DURATION [facility] Rx#:[id number] Piperacillin-Tazobactam 3 50.0 100 .375 gm In Sodium Chloride 0.9% 100 ml @ 25 mls/hr IVPB Q12HR [facility] Rx #:[id number] Pressure Bag 27 Intake, IV Titration 60 1539 Amount Mvi, Adult No.4 with Vit 60 K 10 ml Trace (Conc-1Ml/ Dose) 1 ml In Amino Acid 5%-D20w+Lytes*E* 1,000 ml @ 60 mls/hr IV .BY DURATION [facility] Rx#: [id number] Mvi, Adult No.4 with Vit 660 K 10 ml Trace (Conc-1Ml/ Dose) 1 ml Sodium Acetate 20 meq In Amino Acid 5%- D20w+Lytes*E* 1,000 ml @ 60 mls/hr IV .BY DURATION [facility] Rx#:[id number] Sodium Acetate 20 meq In 879 Amino Acid 5%-D20w+Lytes* E* 1,000 ml @ 60 mls/hr IV .BY DURATION [facility] Rx#: [id number] Output: Gastric Drainage 150 180 Urine 235 450 Other: Voiding Method Indwelling Catheter Indwelling Catheter Indwelling Catheter ABP, PAP, CO, CI - Last Documented Arterial Blood Pressure 154/64 - Exam Awake, comfortable, not in any acute distress. NG tube in place Examination of the heart S1 and S2 Examination lungs bilateral breath sounds are heard Abdomen is soft, tender. Incision is dressed Examination of lower extremities shows no evidence of edema [employer] SURFACE exam grossly intact - Labs CBC & Chem 7: 07/22/21 04:00 07/23/21 05:34 Labs: Abnormal Lab Results - Last 24 Hours (Table) 07/22/21 07/22/21 07/23/21 Range/Units 17:34 23:27 05:03 Sodium (137-145) mmol/L BUN (7-17) mg/dL Creatinine (0.52-1.04) mg/dL Glucose (74-99) mg/dL POC Glucose (mg/dL) 165 H 148 H 169 H (75-99) mg/dL Calcium (8.4-10.2) mg/dL Total Protein (6.3-8.2) g/dL Albumin (3.5-5.0) g/dL 07/23/21 07/23/21 Range/Units 05:34 11:37 Sodium 136 L (137-145) mmol/L BUN 42 H (7-17) mg/dL Creatinine 1.28 H (0.52-1.04) mg/dL Glucose 157 H (74-99) mg/dL POC Glucose (mg/dL) 151 H (75-99) mg/dL Calcium 8.0 L (8.4-10.2) mg/dL Total Protein 5.6 L (6.3-8.2) g/dL Albumin 2.3 L (3.5-5.0) g/dL Assessment and Plan Assessment: 1. Acute kidney injury prerenal currently improved with IV hydration UA shows 1+ protein. Computed tomography scan shows no evidence of hydronephrosis, although fullness of bilateral renal pelvises noted. 2. Chronic kidney disease NKF stage IIIB with baseline creatinine 1.3-1.5 mg/dL . Etiology nephrosclerosis. 3. Bowel obstruction being followed by general surgery, currently with NG tube in place, status post explorative laparotomy and lysis of adhesions and lysis of adhesions on 07/21/2021 Plan: Continue TPN
--- NOTE | 2021-07-23 17:02 | P.PN ---
Subjective This is a 85-year-old patient of Dr. Johnson. Chronic stable medical conditions include COPD, GERD, rheumatoid arthritis, celiac disease, chronic urinary incontinence, lumbar radiculopathy , diverticulosis. Patient does use a walker. She was admitted here in January 2021 with severe bowel spasms. Patient yesterday after started having increasing abdominal pain across. Leg cramping. Along with nausea vomiting. Not able to keep anything down. [place] hot. Normally has a bowel movement every other day. Had a bowel movement yesterday. No improvement. Computed tomography scan of the ER showed air-fluid levels. Made nothing by mouth. Surgery consulted. Admitted with acute possible colitis with severe bowel spasms. July 14: Slurring significant abdominal pain. Scheduled Bentyl added. Continue with IV fluids. IV Zosyn. Remains nothing by mouth. July 15: NG tube was placed yesterday for small bowel obstruction. Output noted. Abdominal distention better. Decreased abdominal pain. Laying in bed. Empirically and IV Zosyn. Catapres patch 0.2 started for uncontrolled blood pressure. July 16: NG tube court accidentally pulled out. Started on clear liquids by surgery. Some abdominal distention present. Did pass flatus. Laying in bed. No nausea vomiting July 17: Patient still having abdominal distention. Abdominal pain. Some flatus. Abdominal x-ray reviewed. Significant air-fluid levels. Discussed with patient and at bedside. On the option is to try NG tube again. Patient is reluctant but agreed. Otherwise next definitely surgery. Discussed with Dr. Thomas from surgery. He concurs July 18: Nursing staff unable to place NG tube. Abdominal distention. Nausea vomiting. No flatus or BM. Patient will need surgical intervention. Discussed with patient. A bit apprehensive. Patient counseled July 19: Patient was hypoglycemic this morning. Ordered amp of D50. 1 mg of glucagon IV. And D5W. Earlier patient's has spoken to Dr. Stauffer and surgery has been postponed for at least couple of days depending how patient does with NG tube. About 3 and a cc was obtained overnight. Decreased abdominal pain. No factors or BM. Had a very lengthy discussion with the patient's and the patient the bedside. PICC line and TPN ordered July 20: Patient had a PICC line placed yesterday. TPN and lipids started. Patient had about 400 mL output yesterday. No flatus. Abdominal distention. Decreased pain. Discussed with the patient and with Dr. Stauffer later. For s manjit tomorrow. Subjective: Resuming the care of the patient 07/21/2021 This is a pleasant 85 years old female with multiple medical problems who was admitted to the hospital on 07/13 with signs and symptoms of bowel obstruction. She was treated initially conservatively with the plan for her to go for exploratory laparotomy with possible lysis of adhesions today 07/21. NG tube in place and she was sitting in bed, looks calm. He is fully awake. She is complaining of from central chest pain since yesterday about 5-09/10, with no associated dyspnea or coughing. On the tachypneic. She is denying any abdominal pain. No abdominal distention and NG tube in place. The Vitas looks stable and she is saturating 91% to 92% on 3 L oxygen via nasal cannula. CBC is unremarkable. Creatinine trending down to 1.25. Sodium 133. Troponin mildly elevated at 0.05, it was negative on admission however patient has elevated troponin on 01/2021 at 0.04-0.05. Chest x-ray, reviewed by myself, showing increased venous congestion with possible mild right pleural effusion. EKG showing normal sinus rhythm at 80, no significant ST-T changes and QTC 431 Currently she is off therapeutic IV fluids. We will give 1 dose of IV Lasix 20 mg. Cardiology been consulted for preop evaluation and bedside nurse informed 07/22/2021 Patient is a status post exploratory laparotomy and small bowel resection with adhesions of lysis. She is awake and alert although she looks tired, she is hemodynamically stable and labs are stable as well. Postoperatively she was monitored in the ICU Currently kept on Zosyn. No IV fluid. Patient is doing well and might be transferred out of the ICU today 07/23/2021 She is a status post bowel resection and lysis of adhesions. Currently her abdominal wound is closed with dressing in place. Patient generally weak and deconditioned. But she is awake and oriented and calm. NG tube was discontinued today but kept nothing by mouth. We will check labs tomorrow Currently kept on Zosyn Family at bedside and questions answered to their satisfaction Objective - Vital Signs Vital signs: Vital Signs Temp 98.1 F 07/23/21 14:00 Pulse 118 H 07/23/21 14:00 Resp 18 07/23/21 14:00 BP 136/74 07/23/21 14:00 Pulse Ox 96 07/23/21 14:00 Intake & Output 07/22/21 07/23/21 07/23/21 18:59 06:59 18:59 Intake Total 982.0 2354 Output Total 385 630 Balance 597.0 1724 Weight 44 kg 44 kg Intake: IV 922.0 815 0.9 Sodium Chloride 40 Lactated Ringers 1,000 ml 325 715 @ 65 mls/hr IV .[id number] [facility] Rx#:[id number] Mvi, Adult No.4 with Vit 480 K 10 ml Trace (Conc-1Ml/ Dose) 1 ml Sodium Acetate 20 meq In Amino Acid 5%- D20w+Lytes*E* 1,000 ml @ 60 mls/hr IV .BY DURATION [facility] Rx#:[id number] Piperacillin-Tazobactam 3 50.0 100 .375 gm In Sodium Chloride 0.9% 100 ml @ 25 mls/hr IVPB Q12HR [facility] Rx #:[id number] Pressure Bag 27 Intake, IV Titration 60 1539 Amount Mvi, Adult No.4 with Vit 60 K 10 ml Trace (Conc-1Ml/ Dose) 1 ml In Amino Acid 5%-D20w+Lytes*E* 1,000 ml @ 60 mls/hr IV .BY DURATION [facility] Rx#: [id number] Mvi, Adult No.4 with Vit 660 K 10 ml Trace (Conc-1Ml/ Dose) 1 ml Sodium Acetate 20 meq In Amino Acid 5%- D20w+Lytes*E* 1,000 ml @ 60 mls/hr IV .BY DURATION [facility] Rx#:[id number] Sodium Acetate 20 meq In 879 Amino Acid 5%-D20w+Lytes* E* 1,000 ml @ 60 mls/hr IV .BY DURATION [facility] Rx#: [id number] Output: Gastric Drainage 150 180 Urine 235 450 Other: Voiding Method Indwelling Catheter Indwelling Catheter Indwelling Catheter ABP, PAP, CO, CI - Last Documented Arterial Blood Pressure 154/64 - Exam GENERAL: The patient is alert and oriented x3, not in any acute distress. Well developed, well nourished. HEENT: Pupils are round and equally reacting to light. EOMI. No scleral icterus. No conjunctival pallor. Normocephalic, atraumatic. No pharyngeal erythema. No thyromegaly. CARDIOVASCULAR: S1 and S2 present. No murmurs, rubs, or gallops. PULMONARY: Chest is clear to auscultation, no wheezing or crackles. -ABDOMEN: Soft, nontender, nondistended, normoactive bowel sounds. No palpable organomegaly. NG tube in place. Surgical wound MUSCULOSKELETAL: No joint swelling or deformity. EXTREMITIES: No cyanosis, clubbing, or pedal edema. NEUROLOGICAL: Gross neurological examination did not reveal any focal deficits. SKIN: No rashes. no petechiae. - Labs CBC & Chem 7: 07/22/21 04:00 07/23/21 05:34 Labs: Abnormal Lab Results - Last 24 Hours (Table) 07/22/21 07/22/21 07/23/21 Range/Units 17:34 23:27 05:03 Sodium (137-145) mmol/L BUN (7-17) mg/dL Creatinine (0.52-1.04) mg/dL Glucose (74-99) mg/dL POC Glucose (mg/dL) 165 H 148 H 169 H (75-99) mg/dL Calcium (8.4-10.2) mg/dL Total Protein (6.3-8.2) g/dL Albumin (3.5-5.0) g/dL 07/23/21 07/23/21 Range/Units 05:34 11:37 Sodium 136 L (137-145) mmol/L BUN 42 H (7-17) mg/dL Creatinine 1.28 H (0.52-1.04) mg/dL Glucose 157 H (74-99) mg/dL POC Glucose (mg/dL) 151 H (75-99) mg/dL Calcium 8.0 L (8.4-10.2) mg/dL Total Protein 5.6 L (6.3-8.2) g/dL Albumin 2.3 L (3.5-5.0) g/dL Assessment and Plan Assessment: - Acute small bowel obstruction. Empirically IV Zosyn for possible enteritis/colitis.: She is status post for exploratory laparotomy on 07/21 with lysis of adhesions and small bowel resection Surgical wound looks closed. Surgery team on the case -Chest pain with mild tachypnea, related to mild acute CHF, diastolic with EF 55-60% per echocardiogram on 01/2021 Cardiology team consulted for preop evaluation. Start breathing treatment when necessary -COPD, in a previous smoker Albuterol when necessary -Chronic kidney disease stage III from nephrosclerosis Follow renal function -GERD Omeprazole 20 mg twice a day -Rheumatoid arthritis Pain control -Essential hypertension, Catapres patch 0.2 -Chronic celiac disease Gluten-free diet -Hypoglycemia from poor oral intake: Better Improved. -Overactive bladder causing incontinence uses a brief - Colonic diverticulosis, Follow clinically -Acute kidney injury, prerenal: Better Admission creatinine 1.85. Currently 1.2 -Chronic kidney disease, stage III Secondary to hypertension -Moderate protein calorie malnutrition Supplemental nutrition IV TPN and lipids started DVT prophylaxis: Lovenox GI prophylaxis: Protonix Prognosis: Guarded
[2021-07-23 23:41] LABS: Glucose,Whole Blood 182 mg/dL (75-99)
[2021-07-24] MEDS: ACETAMINOPHEN IV (For NPO) 650 MG in EMPTY BAG 1 BAG IVPB SCH ×4 (00:55→17:56)
[2021-07-24] MEDS: INSULIN ASPART (NovoLOG) 100 UNIT/ML VIAL SQ SCH ×4 (00:56→17:55)
[2021-07-24] MEDS: LACTATED RINGERS 1,000 ML IV SCH ×2 (01:08→08:53)
[2021-07-24] MEDS: HYDROmorphone 0.5 MG/0.5 ML SYRINGE IVP PRN ×3 (04:44→20:49)
[2021-07-24 05:43] LABS: Glucose,Whole Blood 161 mg/dL (75-99)
[2021-07-24 06:11] LABS: Potassium 3.8 mmol/L (3.5-5.1)
[2021-07-24 06:12] LABS: ALT 11 U/L (4-34); AST 21 U/L (14-36); African American GFR (CKD) 51 (>60 ml/min/1.73 sqM); Albumin 2.2 g/dL (3.5-5.0); Albumin/Globulin Ratio 0.7; Alkaline Phosphatase 91 U/L (38-126); Anion Gap 3 mmol/L; Blood Urea Nitrogen 38 mg/dL (7-17); Calcium 7.9 mg/dL (8.4-10.2); Carbon Dioxide 25 mmol/L (22-30); Chloride 106 mmol/L (98-107); Glucose 164 mg/dL (74-99); Magnesium 2.1 mg/dL (1.6-2.3); Non-African American GFR(CKD) 45 (>60 ml/min/1.73 sqM); Phosphorus 3.1 mg/dL (2.5-4.5); Sodium 134 mmol/L (137-145); Total Bilirubin 0.4 mg/dL (0.2-1.3); Total Protein 5.2 g/dL (6.3-8.2)
[2021-07-24] MEDS: PANTOPRAZOLE 40 MG/10 ML VIAL IVP SCH (07:25)
[2021-07-24] MEDS: DICYCLOMINE 10 MG CAP PO SCH ×4 (07:25→20:49)
[2021-07-24] MEDS: PIPERACILLIN-TAZOBACTAM 3.375 GM in SODIUM CHLORIDE 0.9% 100 ML IVPB SCH ×2 (07:25→20:48)
[2021-07-24] MEDS: OXYBUTYNIN CHLORIDE 5 MG TAB PO SCH ×2 (07:25→20:49)
[2021-07-24] MEDS: ENOXAPARIN 30 MG/0.3 ML SYRINGE SQ SCH (07:25)
[2021-07-24] MEDS: [UNRECOGNIZED DRUG - REMARK] IV SCH ×4 (08:53)
[2021-07-24 08:59] LABS: Basophils # (A) 0.02 X 10*3/uL (0.00-0.10); Basophils % (A) 0.2 %; Eosinophils % (A) 1.6 %; HCT 27.5 % (37.2-46.3); HGB 8.7 g/dL (12.0-15.0); Immature Grans, Automated 0.4 %; Lymphocytes # (A) 0.58 X 10*3/uL (0.90-5.00); Lymphocytes % (A) 4.7 %; MCH 28.8 pg (27.0-32.0); MCHC 31.6 g/dL (32.0-37.0); MCV 91.1 fL (80.0-97.0); Mean Platelet Volume 9.4 fL (9.5-12.2); Monocytes # (A) 0.68 X 10*3/uL (0.20-1.00); Monocytes % (A) 5.5 %; NRBC Per 100 WBC 0 /100 WBCS (0.0-0.0); Neutrophils # (A) 10.75 X 10*3/uL (1.80-7.70); Neutrophils % (A) 87.6 %; Platelet Count 322 X 10*3/uL (140-440); RBC 3.02 X 10*6/uL (4.10-5.20); RDW 14.3 % (11.5-14.5); WBC 12.28 X 10*3/uL (4.50-10.00)
--- NOTE | 2021-07-24 09:29 | P.PN ---
Subjective Progress Note Date: 07/24/21 Principal diagnosis: This is a 85-year-old female seen in consultation because of chronic kidney disease and acute kidney injury She came in because of all obstruction and had lysis of adhesion. Currently she is in some pain no nausea vomiting she wants to eat has not passed any gases or stools. Vital signs are stable. Intake is documented at 1600 output at thousand cc Objective - Vital Signs Vital signs: Vital Signs Temp 97.3 F L 07/24/21 08:00 Pulse 91 07/24/21 08:00 Resp 14 07/24/21 08:00 BP 134/66 07/24/21 08:00 Pulse Ox 93 L 07/24/21 08:00 Intake & Output 07/23/21 07/24/21 07/24/21 18:59 06:59 18:59 Intake Total 1600 Output Total 700 300 Balance 900 -300 Weight 44 kg Intake: IV 1600 Lactated Ringers 1,000 ml 780 @ 65 mls/hr [id number] Rx#:[id number] Mvi, Adult No.4 with Vit 720 K 10 ml Trace (Conc-1Ml/ Dose) 1 ml Sodium Acetate 20 meq In Amino Acid 5%- D20w+Lytes*E* 1,000 ml @ 60 mls/hr IV .BY DURATION [facility] Rx#:[id number] Piperacillin-Tazobactam 3 100 .375 gm In Sodium Chloride 0.9% 100 ml @ 25 mls/hr IVPB Q12HR [facility] Rx #:[id number] Output: Urine 700 300 Other: Voiding Method Indwelling Catheter Indwelling Catheter Indwelling Catheter ABP, PAP, CO, CI - Last Documented Arterial Blood Pressure 154/64 On examination awake alert oriented comfortable in some pain No JVP noted no facial asymmetry Lungs are clear to auscultation fair air entry bilaterally Heart sounds unremarkable for any murmur rub gallop Abdomen is very tender bowel sounds are absent Extreme exam was no edema Neurologically awake alert oriented - Labs CBC & Chem 7: 07/24/21 05:38 07/24/21 05:44 Labs: Abnormal Lab Results - Last 24 Hours (Table) 07/23/21 07/23/21 07/23/21 Range/Units 11:37 16:56 23:40 WBC (4.50-10.00) X 10*3/uL RBC (4.10-5.20) X 10*6/uL Hgb (12.0-15.0) g/dL Hct (37.2-46.3) % MCHC (32.0-37.0) g/dL MPV (9.5-12.2) fL Immature Gran # (0.00-0.04) X 10*3/uL Neutrophils # (1.80-7.70) X 10*3/uL Lymphocytes # (0.90-5.00) X 10*3/uL Sodium (137-145) mmol/L BUN (7-17) mg/dL Creatinine (0.52-1.04) mg/dL Glucose (74-99) mg/dL POC Glucose (mg/dL) 151 H 153 H 182 H (75-99) mg/dL Calcium (8.4-10.2) mg/dL Total Protein (6.3-8.2) g/dL Albumin (3.5-5.0) g/dL 07/24/21 07/24/21 07/24/21 Range/Units 05:38 05:41 05:44 WBC 12.28 H (4.50-10.00) X 10*3/uL RBC 3.02 L (4.10-5.20) X 10*6/uL Hgb 8.7 L (12.0-15.0) g/dL Hct 27.5 L (37.2-46.3) % MCHC 31.6 L (32.0-37.0) g/dL MPV 9.4 L (9.5-12.2) fL Immature Gran # 0.05 H (0.00-0.04) X 10*3/uL Neutrophils # 10.75 H (1.80-7.70) X 10*3/uL Lymphocytes # 0.58 L (0.90-5.00) X 10*3/uL Sodium 134 L (137-145) mmol/L BUN 38 H (7-17) mg/dL Creatinine 1.12 H (0.52-1.04) mg/dL Glucose 164 H (74-99) mg/dL POC Glucose (mg/dL) 161 H (75-99) mg/dL Calcium 7.9 L (8.4-10.2) mg/dL Total Protein 5.2 L (6.3-8.2) g/dL Albumin 2.2 L (3.5-5.0) g/dL Assessment and Plan Assessment: Impression 1. Acute kidney injury secondary to bowel obstruction and volume depletion. Improving with IV fluids with lactated Ringer's at 75 an hour. Creatinine down to 1.12. 2. Chronic kidney disease stage III Baseline creatinine was 1.3-1.5 seconds nephrosclerosis. 3. Mild hyponatremia secondary to acute kidney injury and sodium is 134. Blood sugar is 164. 4. Anemia hemoglobin is 8.7, some of it may be secondary to dilution. Her hemoglobin on 07/12/2021 on admission was 11.5. No obvious bleeding Recommendation 1. Continue lactated Ringer's at 65 mL an hour currently until her intake is satisfactory 2. Monitor labs.
--- NOTE | 2021-07-24 10:17 | P.PN ---
Progress Note - Text Progress Note Date: 07/24/21 Patient has intermittent complaints of incisional pain. She is currently resting in bed comfortable. On exam vital signs appear stable. Abdomen soft. Incision clean and intact. Status post small bowel resection for small bowel obstruction. Patient has not had significant bowel function. We will start her diet once her bowel function improves
[2021-07-24 12:14] LABS: Glucose,Whole Blood 157 mg/dL (75-99)
--- NOTE | 2021-07-24 14:55 | P.PN ---
Subjective Progress Note Date: 07/24/21 This is a 85-year-old female patient with a known history of cerebral aneurysm with surgical repair, abdominal aortic aneurysm with surgical repair, COPD, rheumatoid arthritis, renal disease. She presented here to the emergency room back on 07/12/2021 with complaints of abdominal discomfort. On 07/21/2021 she had undergone a exploratory laparotomy with lysis of adhesions and small bowel resection. She was admitted to the intensive care unit last evening for closer observation. She is seen today in consultation. She is awake and alert. She is maintaining O2 saturations on 6 L high flow nasal cannula. She has TPN running at 60 ML's per hour. She has normal saline running at 10 MLS when neces ananda. White count 10.0. Hemoglobin 11.2. Sodium 132. Potassium 3.8. BUN 35. Creatinine 1.27. Glucose 227. She is currently on antibiotics in the form of Zosyn. 6 here from yesterday revealed some pulmonary venous congestion with scattered infiltrates and pleural effusions. Borderline cardiomegaly. She'll be educated regarding use the incentive spirometer. Nasogastric tube remains in place. He's been afebrile. Hemodynamically stable. Abdominal dressing dry and intact. The patient is seen today 07/23/2021 in follow-up on the regular medical floor. She is currently resting quite comfortably in bed. Awake and alert in no acute distress. She is maintaining good O2 saturations in the mid 90s on 3 L/m per nasal cannula. Afebrile. Hemodynamically stable. Sodium 136. Potassium 4.2. Bicarb 26. BUN 42. Creatinine 1.28. Glucose 157. AST 24. ALT 11. Nasogastric tube remains in place. She is on TPN at 60 ML's per hour. Lactated Ringer's at 55 ML's per hour. Antibiotics in the form of Zosyn. She remains on bronchodilators. The patient is seen today 07/24/2021 in follow-up on the regular medical floor. She is currently resting comfortably in bed. Awake and alert in no acute distress. White count 12.2. Hemoglobin 8.7. Platelets 322. Sodium 134. Potassium 3.8. BUN 38. Creatinine 1.12. Glucose 164. No bowel activity thus far. She remains nothing by mouth. She is being nourished with TPN at 60 ML's per hour. Lactated Ringer's at 65 ML's per hour. Maintaining O2 saturations in the 90s on 3 L/m per nasal cannula. Her pain is well controlled. Lovenox for DVT prophylaxis. Antibiotics in the form of Zosyn. Encouraged regarding the increased use of the incentive spirometer. Objective - Vital Signs Vital signs: Vital Signs Temp 97.9 F 07/24/21 14:00 Pulse 90 07/24/21 14:00 Resp 16 07/24/21 14:00 BP 153/76 07/24/21 14:00 Pulse Ox 96 07/24/21 14:00 Intake & Output 07/23/21 07/24/21 07/24/21 18:59 06:59 18:59 Intake Total 1600 Output Total 700 300 Balance 900 -300 Weight 44 kg Intake: IV 1600 Lactated Ringers 1,000 ml 780 @ 65 mls/hr IV .[id number] [facility] Rx#:[id number] Mvi, Adult No.4 with Vit 720 K 10 ml Trace (Conc-1Ml/ Dose) 1 ml Sodium Acetate 20 meq In Amino Acid 5%- D20w+Lytes*E* 1,000 ml @ 60 mls/hr IV .BY DURATION [facility] Rx#:[id number] Piperacillin-Tazobactam 3 100 .375 gm In Sodium Chloride 0.9% 100 ml @ 25 mls/hr IVPB Q12HR [facility] Rx #:[id number] Output: Urine 700 300 Other: Voiding Method Indwelling Catheter Indwelling Catheter Indwelling Catheter ABP, PAP, CO, CI - Last Documented Arterial Blood Pressure 154/64 - Exam GENERAL EXAM: Alert, pleasant 85-year-old female patient, on 3 L nasal cannula, comfortable in no apparent distress. HEAD: Normocephalic. EYES: Normal reaction of pupils, equal size. NOSE: Nasogastric tube secured in place. Clear with pink turbinates. THROAT: No erythema or exudates. NECK: No masses, no JVD. CHEST: No chest wall deformity. LUNGS: Equal air entry with no crackles, wheeze, rhonchi or dullness. CVS: S1 and S2 normal with no audible murmur, regular rhythm. ABDOMEN: Surgical dressing dry and intact. No hepatosplenomegaly, normal bowel sounds, no guarding or rigidity. SPINE: No scoliosis or deformity SKIN: No rashes CENTRAL NERVOUS SYSTEM: No focal deficits, tone is normal in all 4 extremities. EXTREMITIES: There is no peripheral edema. No clubbing, no cyanosis. Peripheral pulses are intact. - Labs CBC & Chem 7: 07/24/21 05:38 07/24/21 05:44 Labs: Abnormal Lab Results - Last 24 Hours (Table) 07/23/21 07/23/21 07/24/21 Range/Units 16:56 23:40 05:38 WBC 12.28 H (4.50-10.00) X 10*3/uL RBC 3.02 L (4.10-5.20) X 10*6/uL Hgb 8.7 L (12.0-15.0) g/dL Hct 27.5 L (37.2-46.3) % MCHC 31.6 L (32.0-37.0) g/dL MPV 9.4 L (9.5-12.2) fL Immature Gran # 0.05 H (0.00-0.04) X 10*3/uL Neutrophils # 10.75 H (1.80-7.70) X 10*3/uL Lymphocytes # 0.58 L (0.90-5.00) X 10*3/uL Sodium (137-145) mmol/L BUN (7-17) mg/dL Creatinine (0.52-1.04) mg/dL Glucose (74-99) mg/dL POC Glucose (mg/dL) 153 H 182 H (75-99) mg/dL Calcium (8.4-10.2) mg/dL Total Protein (6.3-8.2) g/dL Albumin (3.5-5.0) g/dL 07/24/21 07/24/21 07/24/21 Range/Units 05:41 05:44 12:11 WBC (4.50-10.00) X 10*3/uL RBC (4.10-5.20) X 10*6/uL Hgb (12.0-15.0) g/dL Hct (37.2-46.3) % MCHC (32.0-37.0) g/dL MPV (9.5-12.2) fL Immature Gran # (0.00-0.04) X 10*3/uL Neutrophils # (1.80-7.70) X 10*3/uL Lymphocytes # (0.90-5.00) X 10*3/uL Sodium 134 L (137-145) mmol/L BUN 38 H (7-17) mg/dL Creatinine 1.12 H (0.52-1.04) mg/dL Glucose 164 H (74-99) mg/dL POC Glucose (mg/dL) 161 H 157 H (75-99) mg/dL Calcium 7.9 L (8.4-10.2) mg/dL Total Protein 5.2 L (6.3-8.2) g/dL Albumin 2.2 L (3.5-5.0) g/dL Assessment and Plan Assessment: 1 Abdominal pain status post exploratory laparotomy with lysis of adhesions and small bowel resection. Postoperative day #3 2 Acute hypoxemic respiratory failure secondary to fluid volume overload 3 Acute exacerbation of diastolic congestive heart failure 4 History of COPD 5 History of previous smoking 6 Chronic kidney disease stage III 7 Rheumatoid arthritis 8 Hypertension 9 Chronic celiac disease 10 Chronic diverticulosis Plan: The patient was seen and evaluated Labs and medications reviewed Titrate down the FiO2 as tolerated Increase her activity as tolerated Continue bronchodilators, Zosyn Continue TPN for nutritional support Remains nothing by mouth Follow-up chest x-ray in a.m. We will continue to follow I have personally seen and examined the patient, performed the documentation and the assessment and plan as written. Number of minutes spent on the visit: 10.
[2021-07-24 17:42] LABS: Glucose,Whole Blood 151 mg/dL (75-99)
[2021-07-24] MEDS: BENZOCAINE/MENTHOL LOZENG 1 EACH LOZENGE MUCOUS MEM PRN (17:55)
[2021-07-25 00:36] LABS: Glucose,Whole Blood 174 mg/dL (75-99)
[2021-07-25] MEDS: INSULIN ASPART (NovoLOG) 100 UNIT/ML VIAL SQ SCH ×5 (00:53→23:06)
[2021-07-25] MEDS: ACETAMINOPHEN IV (For NPO) 650 MG in EMPTY BAG 1 BAG IVPB SCH ×2 (00:58→05:49)
[2021-07-25] MEDS: [UNRECOGNIZED DRUG - REMARK] IV SCH ×4 (01:43)
[2021-07-25] MEDS: LACTATED RINGERS 1,000 ML IV SCH ×2 (03:34→18:00)
[2021-07-25 05:20] LABS: African American GFR (CKD) 53 (>60 ml/min/1.73 sqM); Anion Gap 6 mmol/L; Blood Urea Nitrogen 34 mg/dL (7-17); Calcium 8.1 mg/dL (8.4-10.2); Carbon Dioxide 24 mmol/L (22-30); Chloride 104 mmol/L (98-107); Glucose 137 mg/dL (74-99); Non-African American GFR(CKD) 46 (>60 ml/min/1.73 sqM); Phosphorus 3.2 mg/dL (2.5-4.5); Potassium 3.8 mmol/L (3.5-5.1); Sodium 134 mmol/L (137-145)
[2021-07-25 06:09] LABS: Glucose,Whole Blood 153 mg/dL (75-99)
--- NOTE | 2021-07-25 07:16 | XR ---
EXAMINATION TYPE: XR chest 1V portable DATE OF EXAM: 07/25/2021 7:05 AM COMPARISON: Chest radiographs from 07/21/2021 TECHNIQUE: XR chest 1V portable Frontal view of the chest. CLINICAL INDICATION:Female, 85 years old with history of Postop atelectasis; FINDINGS: Lungs/Pleura: Low lung volumes with small bilateral pleural effusions. Unchanged coarse interstitial lung markings. There is no evidence of pleural effusion, focal consolidation, or pneumothorax. Pulmonary vascularity: Pulmonary vascular congestion. Heart/mediastinum: Cardiomediastinal silhouette is prominent in size. Musculoskeletal: No acute osseous pathology. Other findings: None Lines/Tubes: Right-sided PICC line with distal tip at the cavoatrial junction. IMPRESSION: 1. Similar pulmonary vascular congestion with cardiomegaly again concerning for component of congesti ve heart failure. 2. Stable right PICC.
[2021-07-25] MEDS: OXYBUTYNIN CHLORIDE 5 MG TAB PO SCH ×2 (08:37→20:13)
[2021-07-25] MEDS: PANTOPRAZOLE 40 MG/10 ML VIAL IVP SCH (08:37)
[2021-07-25] MEDS: PIPERACILLIN-TAZOBACTAM 3.375 GM in SODIUM CHLORIDE 0.9% 100 ML IVPB SCH ×2 (08:37→20:13)
[2021-07-25] MEDS: DICYCLOMINE 10 MG CAP PO SCH ×4 (08:37→20:13)
[2021-07-25] MEDS: ENOXAPARIN 30 MG/0.3 ML SYRINGE SQ SCH (08:37)
[2021-07-25] MEDS: HYDROmorphone 0.5 MG/0.5 ML SYRINGE IVP PRN (09:04)
--- NOTE | 2021-07-25 10:36 | P.PN ---
Subjective Progress Note Date: 07/25/21 Principal diagnosis: This is a 85-year-old female seen in consultation because of chronic kidney disease and acute kidney injury She came in because of bowel obstruction and had lysis of adhesion. Yesterday she had significant pain in her abdomen but today's little bit better. No nausea vomiting has not moved her bowels yet no any gases or stools. Vital signs are stable, blood pressures although somewhat high. 24-hour intake is 1016 and output is 1600 mL urine. Creatinine is down to 1.09 Objective - Vital Signs Vital signs: Vital Signs Temp 97.9 F 07/25/21 08:00 Pulse 90 07/25/21 08:00 Resp 16 07/25/21 08:00 BP 182/82 07/25/21 08:00 Pulse Ox 96 07/25/21 08:00 Intake & Output 07/24/21 07/25/21 07/25/21 18:59 06:59 18:59 Intake Total 1016 Output Total 800 800 Balance -800 216 Intake: Intake, IV Titration 1016 Amount Sodium Acetate 32 meq In 1016 Amino Acid 5%-D20w+Lytes* E* 1,000 ml @ 60 mls/hr IV .BY DURATION [facility]A Rx#: [id number] Output: Urine 800 800 Other: Voiding Method Indwelling Catheter Indwelling Catheter Indwelling Catheter # Bowel Movements 0 ABP, PAP, CO, CI - Last Documented Arterial Blood Pressure 154/64 HEENT exam no JVP neck is supple no facial asymmetry Lungs clear to auscultation fair air entry bilaterally Heart sounds unremarkable for any murmur rub gallop Abdomen is soft nondistended slightly tender Bowel sounds not heard Extremity exam no edema Neurologically awake alert oriented anxious and in mild pain - Labs CBC & Chem 7: 07/24/21 05:38 07/25/21 04:18 Labs: Abnormal Lab Results - Last 24 Hours (Table) 07/24/21 07/24/21 07/25/21 Range/Units 12:11 17:41 00:33 Sodium (137-145) mmol/L BUN (7-17) mg/dL Creatinine (0.52-1.04) mg/dL Glucose (74-99) mg/dL POC Glucose (mg/dL) 157 H 151 H 174 H (75-99) mg/dL Calcium (8.4-10.2) mg/dL 07/25/21 07/25/21 Range/Units 04:18 06:05 Sodium 134 L (137-145) mmol/L BUN 34 H (7-17) mg/dL Creatinine 1.09 H (0.52-1.04) mg/dL Glucose 137 H (74-99) mg/dL POC Glucose (mg/dL) 153 H (75-99) mg/dL Calcium 8.1 L (8.4-10.2) mg/dL Assessment and Plan Assessment: Impression 1. Acute kidney injury secondary to bowel obstruction and volume depletion. Improving with IV fluids with lactated Ringer's at 65 an hour. Creatinine down to 1.09. 2. Chronic kidney disease stage III Baseline creatinine was 1.3-1.5 secondary to nephrosclerosis. 3. Mild hyponatremia secondary to acute kidney injury and sodium is 134. Blood sugar is 137 4. Anemia hemoglobin is 8.7, some of it may be secondary to dilution. Her hemoglobin on 07/12/2021 on admission was 11.5. No obvious bleeding Recommendation 1. Continue lactated Ringer's at 65 mL an hour currently until her intake is satisfactory 2. Monitor labs.
[2021-07-25 11:08] LABS: Glucose,Whole Blood 157 mg/dL (75-99)
--- NOTE | 2021-07-25 11:44 | P.PN ---
Progress Note - Text Progress Note Date: 07/25/21 Patient's resting comfortably rebound. She has had no significant bowel function. On exam vital signs are stable. Abdomen soft. Incision is clean dry and intact Status post exploratory laparotomy with lysis of adhesions and small bowel resection. Patient will have her diet advanced once her bowel function returns.
[2021-07-25] MEDS: KETOROLAC 15 MG/ML 1 ML VIAL IVP SCH ×3 (12:07→23:06)
--- NOTE | 2021-07-25 15:25 | P.PN ---
Subjective Progress Note Date: 07/25/21 This is a 85-year-old female patient with a known history of cerebral aneurysm with surgical repair, abdominal aortic aneurysm with surgical repair, COPD, rheumatoid arthritis, renal disease. She presented here to the emergency room back on 07/12/2021 with complaints of abdominal discomfort. On 07/21/2021 she had undergone a exploratory laparotomy with lysis of adhesions and small bowel resection. She was admitted to the intensive care unit last evening for closer observation. She is seen today in consultation. She is awake and alert. She is maintaining O2 saturations on 6 L high flow nasal cannula. She has TPN running at 60 ML's per hour. She has normal saline running at 10 MLS when neces ananda. White count 10.0. Hemoglobin 11.2. Sodium 132. Potassium 3.8. BUN 35. Creatinine 1.27. Glucose 227. She is currently on antibiotics in the form of Zosyn. 6 here from yesterday revealed some pulmonary venous congestion with scattered infiltrates and pleural effusions. Borderline cardiomegaly. She'll be educated regarding use the incentive spirometer. Nasogastric tube remains in place. He's been afebrile. Hemodynamically stable. Abdominal dressing dry and intact. The patient is seen today 07/23/2021 in follow-up on the regular medical floor. She is currently resting quite comfortably in bed. Awake and alert in no acute distress. She is maintaining good O2 saturations in the mid 90s on 3 L/m per nasal cannula. Afebrile. Hemodynamically stable. Sodium 136. Potassium 4.2. Bicarb 26. BUN 42. Creatinine 1.28. Glucose 157. AST 24. ALT 11. Nasogastric tube remains in place. She is on TPN at 60 ML's per hour. Lactated Ringer's at 55 ML's per hour. Antibiotics in the form of Zosyn. She remains on bronchodilators. The patient is seen today 07/24/2021 in follow-up on the regular medical floor. She is currently resting comfortably in bed. Awake and alert in no acute distress. White count 12.2. Hemoglobin 8.7. Platelets 322. Sodium 134. Potassium 3.8. BUN 38. Creatinine 1.12. Glucose 164. No bowel activity thus far. She remains nothing by mouth. She is being nourished with TPN at 60 ML's per hour. Lactated Ringer's at 65 ML's per hour. Maintaining O2 saturations in the 90s on 3 L/m per nasal cannula. Her pain is well controlled. Lovenox for DVT prophylaxis. Antibiotics in the form of Zosyn. Encouraged regarding the increased use of the incentive spirometer. The patient is seen today 07/25/2001 in follow-up on the regular medical floor. She is currently resting comfortably in bed. Awake and alert. She did have some periods of confusion. Pulling off her gown. Pulling off her oxygen and is found at 77% O2 saturation on room air. Recovers into the 90s on 3 L nasal cannula. Dilaudid changed to Toradol. Reorients well. Chest x-ray shows similar pulmonary vascular congestion with cardiomegaly. Right PICC line in pl sarah. Sodium 134. Potassium 3.8. Chloride 104. Bicarb 24. BUN 34. Creatinine 1.09. Glucose 137. She remains on TPN at 60 mL per hour for nutritional support. Lactated Ringer's at 65 ML's per hour. No significant bowel function thus far. Objective - Vital Signs Vital signs: Vital Signs Temp 97.9 F 07/25/21 08:00 Pulse 90 07/25/21 08:00 Resp 16 07/25/21 08:00 BP 182/82 07/25/21 08:00 Pulse Ox 96 07/25/21 08:00 Intake & Output 07/24/21 07/25/21 07/25/21 18:59 06:59 18:59 Intake Total 1016 Output Total 800 800 Balance -800 216 Intake: Intake, IV Titration 1016 Amount Sodium Acetate 32 meq In 1016 Amino Acid 5%-D20w+Lytes* E* 1,000 ml @ 60 mls/hr IV .BY DURATION [facility] Rx#: [id number] Output: Urine 800 800 Other: Voiding Method Indwelling Catheter Indwelling Catheter Indwelling Catheter # Bowel Movements 0 ABP, PAP, CO, CI - Last Documented Arterial Blood Pressure 154/64 - Exam GENERAL EXAM: Alert, pleasant 85-year-old female patient, on 3 L nasal cannula, comfortable in no apparent distress. HEAD: Normocephalic. EYES: Normal reaction of pupils, equal size. NOSE: Nasogastric tube secured in place. Clear with pink turbinates. THROAT: No erythema or exudates. NECK: No masses, no JVD. CHEST: No chest wall deformity. LUNGS: Equal air entry with no crackles, wheeze, rhonchi or dullness. CVS: S1 and S2 normal with no audible murmur, regular rhythm. ABDOMEN: Surgical dressing dry and intact. No hepatosplenomegaly, normal bowel sounds, no guarding or rigidity. SPINE: No scoliosis or deformity SKIN: No rashes CENTRAL NERVOUS SYSTEM: No focal deficits, tone is normal in all 4 extremities. EXTREMITIES: There is no peripheral edema. No clubbing, no cyanosis. Peripheral pulses are intact. - Labs CBC & Chem 7: 07/24/21 05:38 07/25/21 04:18 Labs: Abnormal Lab Results - Last 24 Hours (Table) 07/24/21 07/25/21 07/25/21 Range/Units 17:41 00:33 04:18 Sodium 134 L (137-145) mmol/L BUN 34 H (7-17) mg/dL Creatinine 1.09 H (0.52-1.04) mg/dL Glucose 137 H (74-99) mg/dL POC Glucose (mg/dL) 151 H 174 H (75-99) mg/dL Calcium 8.1 L (8.4-10.2) mg/dL 07/25/21 07/25/21 Range/Units 06:05 11:07 Sodium (137-145) mmol/L BUN (7-17) mg/dL Creatinine (0.52-1.04) mg/dL Glucose (74-99) mg/dL POC Glucose (mg/dL) 153 H 157 H (75-99) mg/dL Calcium (8.4-10.2) mg/dL Assessment and Plan Assessment: Abdominal pain status post exploratory laparotomy with lysis of adhesions and small bowel resection. Postoperative day #4 Acute hypoxemic respiratory failure secondary to fluid volume overload Acute exacerbation of diastolic congestive heart failure History of COPD History of previous smoking Chronic kidney disease stage III Rheumatoid arthritis Hypertension Chronic celiac disease Chronic diverticulosis Plan: The patient was seen and evaluated Labs and medications reviewed Continue bronchodilators, Zosyn Continue TPN for nutritional support Remains nothing by mouth We will continue to follow I have personally seen and examined the patient, performed the documentation and the assessment and plan as written. Number of minutes spent on the visit: 10.
[2021-07-25 17:52] LABS: Glucose,Whole Blood 129 mg/dL (75-99)
[2021-07-25] MEDS: [UNRECOGNIZED DRUG - REMARK] IV SCH ×4 (18:15)
[2021-07-25 22:59] LABS: Glucose,Whole Blood 160 mg/dL (75-99)
[2021-07-26] MEDS: ONDANSETRON 4 MG/2 ML VIAL IVP PRN (00:33)
--- NOTE | 2021-07-26 02:08 | P.PN ---
Subjective Progress Note Date: 07/24/21 This is a 85-year-old patient of Dr. Johnson. Chronic stable medical conditions include COPD, GERD, rheumatoid arthritis, celiac disease, chronic urinary incontinence, lumbar radiculopathy , diverticulosis. Patient does use a walker. She was admitted here in January 2021 with severe bowel spasms. Patient yesterday after started having increasing abdominal pain across. Leg cramping. Along with nausea vomiting. Not able to keep anything down. [place] hot. Normally has a bowel movement every other day. Had a bowel movement yesterday. No improvement. Computed tomography scan of the ER showed air-fluid levels. Made nothing by mouth. Surgery consulted. Admitted with acute possible colitis with severe bowel spasms. July 14: Slurring significant abdominal pain. Scheduled Bentyl added. Cont inue with IV fluids. IV Zosyn. Remains nothing by mouth. July 15: NG tube was placed yesterday for small bowel obstruction. Output noted. Abdominal distention better. Decreased abdominal pain. Laying in bed. Empirically and IV Zosyn. Catapres patch 0.2 started for uncontrolled blood pressure. July 16: NG tube court accidentally pulled out. Started on clear liquids by surgery. Some abdominal distention present. Did pass flatus. Laying in bed. No nausea vomiting July 17: Patient still having abdominal distention. Abdominal pain. Some flatus. Abdominal x-ray reviewed. Significant air-fluid levels. Discussed with patient and at bedside. On the option is to try NG tube again. Patient is reluctant but agreed. Otherwise next definitely surgery. Discussed with Dr. Thomas from surgery. He concurs July 18: Nursing staff unable to place NG tube. Abdominal distention. Nausea vomiting. No flatus or BM. Patient will need surgical intervention. Discussed with patient. A bit apprehensive. Patient counseled July 19: Patient was hypoglycemic this morning. Ordered amp of D50. 1 mg of glucagon IV. And D5W. Earlier patient's has spoken to Dr. Stauffer and surgery has been postponed for at least couple of days depending how patient does with NG tube. About 3 and a cc was obtained overnight. Decreased abdominal pain. No factors or BM. Had a very lengthy discussion with the patient's and the patient the bedside. PICC line and TPN ordered July 20: Patient had a PICC line placed yesterday. TPN and lipids started. Patient had about 400 mL output yesterday. No flatus. Abdominal distention. Decreased pain. Discussed with the patient and with Dr. Stauffer later. For surgery tomorrow. Subjective: Resuming the care of the patient 07/21/2021 This is a pleasant 85 years old female with multiple medical problems who was admitted to the hospital on 07/13 with signs and symptoms of bowel obstruction. She was treated initially conservatively with the plan for her to go for exploratory laparotomy with possible lysis of adhesions today 07/21. NG tube in place and she was sitting in bed, looks calm. He is fully awake. She is complaining of from central chest pain since yesterday about 5-09/10, with no associated dyspnea or coughing. On the tachypneic. She is denying any abdominal pain. No abdominal distention and NG tube in place. The Vitas looks stable and she is saturating 91% to 92% on 3 L oxygen via nasal cannula. CBC is unremarkable. Creatinine trending down to 1.25. Sodium 133. Troponin mildly elevated at 0.05, it was negative on admission however patient has elevated troponin on 01/2021 at 0.04-0.05. Chest x-ray, reviewed by myself, showing increased venous congestion with possible mild right pleural effusion. EKG showing normal sinus rhythm at 80, no significant ST-T changes and QTC 431 Currently she is off therapeutic IV fluids. We will give 1 dose of IV Lasix 20 mg. Cardiology been consulted for preop evaluation and bedside nurse informed 07/22/2021 Patient is a status post exploratory laparotomy and small bowel resection with adhesions of lysis. She is awake and alert although she looks tired, she is hemodynamically stable and labs are stable as well. Postoperatively she was monitored in the ICU Currently kept on Zosyn. No IV fluid. Patient is doing well and might be transferred out of the ICU today 07/23/2021 She is a status post bowel resection and lysis of adhesions. Currently her abdominal wound is closed with dressing in place. Patient generally weak and deconditioned. But she is awake and oriented and calm. NG tube was discontinued today but kept nothing by mouth. We will check labs tomorrow Currently kept on Zosyn Family at bedside and questions answered to their satisfaction 07/24/21 Patient is currently resting in the bed. Awake alert and oriented. No com plaints of chest pain. No shortness of breath. Currently nothing by mouth. Patient is being continued on TPN. Requiring oxygen at 3 L via nasal cannula. Laboratory data showed WBC 12.2 hemoglobin 8.7 and platelets 322 Sodium 134 potassium 3.8 chloride 106 bicarbonate 25 BUN 38 and creatinine 1.12. Patient is on antibiotics in the form of Zosyn. Encourage incentive spirometry. On IV hydration with Ringer's lactate. Current medications reviewed. Objective - Vital Signs Vital signs: Vital Signs Temp 98.2 F 07/24/21 20:00 Pulse 103 H 07/24/21 20:00 Resp 16 07/24/21 20:00 BP 155/83 07/24/21 20:00 Pulse Ox 94 L 07/24/21 20:00 Intake & Output 07/24/21 07/24/21 07/25/21 06:59 18:59 06:59 Output Total 300 800 Balance -300 -800 Output: Urine 300 800 Other: Voiding Method Indwelling Catheter Indwelling Catheter ABP, PAP, CO, CI - Last Documented Arterial Blood Pressure 154/64 - Exam - Exam GENERAL: The patient is alert and oriented x3, not in any acute distress. Well developed, well nourished. HEENT: Pupils are round and equally reacting to light. EOMI. No scleral icterus. No conjunctival pallor. Normocephalic, atraumatic. No pharyngeal erythema. No thyromegaly. CARDIOVASCULAR: S1 and S2 present. No murmurs, rubs, or gallops. PULMONARY: Chest is clear to auscultation, no wheezing or crackles. -ABDOMEN: Soft, nontender, nondistended, normoactive bowel sounds. No palpable organomegaly. NG tube in place. Surgical wound MUSCULOSKELETAL: No joint swelling or deformity. EXTREMITIES: No cyanosis, clubbing, or pedal edema. NEUROLOGICAL: Gross neurological examination did not reveal any focal deficits. SKIN: No rashes. no petechiae. - Labs CBC & Chem 7: 07/24/21 05:38 07/25/21 04:18 Labs: Abnormal Lab Results - Last 24 Hours (Table) 07/23/21 07/24/21 07/24/21 Range/Units 23:40 05:38 05:41 WBC 12.28 H (4.50-10.00) X 10*3/uL RBC 3.02 L (4.10-5.20) X 10*6/uL Hgb 8.7 L (12.0-15.0) g/dL Hct 27.5 L (37.2-46.3) % MCHC 31.6 L (32.0-37.0) g/dL MPV 9.4 L (9.5-12.2) fL Immature Gran # 0.05 H (0.00-0.04) X 10*3/uL Neutrophils # 10.75 H (1.80-7.70) X 10*3/uL Lymphocytes # 0.58 L (0.90-5.00) X 10*3/uL Sodium (137-145) mmol/L BUN (7-17) mg/dL Creatinine (0.52-1.04) mg/dL Glucose (74-99) mg/dL POC Glucose (mg/dL) 182 H 161 H (75-99) mg/dL Calcium (8.4-10.2) mg/dL Total Protein (6.3-8.2) g/dL Albumin (3.5-5.0) g/dL 07/24/21 07/24/21 07/24/21 Range/Units 05:44 12:11 17:41 WBC (4.50-10.00) X 10*3/uL RBC (4.10-5.20) X 10*6/uL Hgb (12.0-15.0) g/dL Hct (37.2-46.3) % MCHC (32.0-37.0) g/dL MPV (9.5-12.2) fL Immature Gran # (0.00-0.04) X 10*3/uL Neutrophils # (1.80-7.70) X 10*3/uL Lymphocytes # (0.90-5.00) X 10*3/uL Sodium 134 L (137-145) mmol/L BUN 38 H (7-17) mg/dL Creatinine 1.12 H (0.52-1.04) mg/dL Glucose 164 H (74-99) mg/dL POC Glucose (mg/dL) 157 H 151 H (75-99) mg/dL Calcium 7.9 L (8.4-10.2) mg/dL Total Protein 5.2 L (6.3-8.2) g/dL Albumin 2.2 L (3.5-5.0) g/dL Assessment and Plan Assessment: - Acute small bowel obstruction. Empirically IV Zosyn for possible enteritis/colitis.: She is status post for exploratory laparotomy on 07/21 with lysis of adhesions and small bowel resection Surgical wound looks closed. Surgery team on the case on TPN -Chest pain with mild tachypnea, related to mild acute CHF, diastolic with EF 55-60% per echocardiogram on 01/2021 Cardiology team consulted for preop evaluation. breathing treatment when necessary -COPD, in a previous smoker Albuterol when necessary -YIMI Due to volume depletion. Chronic kidney disease stage III from nephrosclerosis Follow renal function -GERD Omeprazole 20 mg twice a day -Rheumatoid arthritis Pain control -Essential hypertension, Catapres patch 0.2 -Chronic celiac disease Gluten-free diet -Hypoglycemia from poor oral intake: Better Improved. -Overactive bladder causing incontinence uses a brief - Colonic diverticulosis, Follow clinically -Acute kidney injury, prerenal: Better Admission creatinine 1.85. Currently 1.1 -Chronic kidney disease, stage III Secondary to hypertension -Moderate protein calorie malnutrition Supplemental nutrition IV TPN and lipids started DVT prophylaxis: Lovenox GI prophylaxis: Protonix Prognosis: Guarded Time with Patient: Greater than 30
--- NOTE | 2021-07-26 02:11 | P.PN ---
Subjective Progress Note Date: 07/25/21 This is a 85-year-old patient of Dr. Johnson. Chronic stable medical conditions include COPD, GERD, rheumatoid arthritis, celiac disease, chronic urinary incontinence, lumbar radiculopathy , diverticulosis. Patient does use a walker. She was admitted here in January 2021 with severe bowel spasms. Patient yesterday after started having increasing abdominal pain across. Leg cramping. Along with nausea vomiting. Not able to keep anything down. [place] hot. Normally has a bowel movement every other day. Had a bowel movement yesterday. No improvement. Computed tomography scan of the ER showed air-fluid levels. Made nothing by mouth. Surgery consulted. Admitted with acute possible colitis with severe bowel spasms. July 14: Slurring significant abdominal pain. Scheduled Bentyl added. Cont inue with IV fluids. IV Zosyn. Remains nothing by mouth. July 15: NG tube was placed yesterday for small bowel obstruction. Output noted. Abdominal distention better. Decreased abdominal pain. Laying in bed. Empirically and IV Zosyn. Catapres patch 0.2 started for uncontrolled blood pressure. July 16: NG tube court accidentally pulled out. Started on clear liquids by surgery. Some abdominal distention present. Did pass flatus. Laying in bed. No nausea vomiting July 17: Patient still having abdominal distention. Abdominal pain. Some flatus. Abdominal x-ray reviewed. Significant air-fluid levels. Discussed with patient and at bedside. On the option is to try NG tube again. Patient is reluctant but agreed. Otherwise next definitely surgery. Discussed with Dr. Thomas from surgery. He concurs July 18: Nursing staff unable to place NG tube. Abdominal distention. Nausea vomiting. No flatus or BM. Patient will need surgical intervention. Discussed with patient. A bit apprehensive. Patient counseled July 19: Patient was hypoglycemic this morning. Ordered amp of D50. 1 mg of glucagon IV. And D5W. Earlier patient's has spoken to Dr. Stauffer and surgery has been postponed for at least couple of days depending how patient does with NG tube. About 3 and a cc was obtained overnight. Decreased abdominal pain. No factors or BM. Had a very lengthy discussion with the patient's and the patient the bedside. PICC line and TPN ordered July 20: Patient had a PICC line placed yesterday. TPN and lipids started. Patient had about 400 mL output yesterday. No flatus. Abdominal distention. Decreased pain. Discussed with the patient and with Dr. Stauffer later. For surgery tomorrow. Subjective: Resuming the care of the patient 07/21/2021 This is a pleasant 85 years old female with multiple medical problems who was admitted to the hospital on 07/13 with signs and symptoms of bowel obstruction. She was treated initially conservatively with the plan for her to go for exploratory laparotomy with possible lysis of adhesions today 07/21. NG tube in place and she was sitting in bed, looks calm. He is fully awake. She is complaining of from central chest pain since yesterday about 5-09/10, with no associated dyspnea or coughing. On the tachypneic. She is denying any abdominal pain. No abdominal distention and NG tube in place. The Vitas looks stable and she is saturating 91% to 92% on 3 L oxygen via nasal cannula. CBC is unremarkable. Creatinine trending down to 1.25. Sodium 133. Troponin mildly elevated at 0.05, it was negative on admission however patient has elevated troponin on 01/2021 at 0.04-0.05. Chest x-ray, reviewed by myself, showing increased venous congestion with possible mild right pleural effusion. EKG showing normal sinus rhythm at 80, no significant ST-T changes and QTC 431 Currently she is off therapeutic IV fluids. We will give 1 dose of IV Lasix 20 mg. Cardiology been consulted for preop evaluation and bedside nurse informed 07/22/2021 Patient is a status post exploratory laparotomy and small bowel resection with adhesions of lysis. She is awake and alert although she looks tired, she is hemodynamically stable and labs are stable as well. Postoperatively she was monitored in the ICU Currently kept on Zosyn. No IV fluid. Patient is doing well and might be transferred out of the ICU today 07/23/2021 She is a status post bowel resection and lysis of adhesions. Currently her abdominal wound is closed with dressing in place. Patient generally weak and deconditioned. But she is awake and oriented and calm. NG tube was discontinued today but kept nothing by mouth. We will check labs tomorrow Currently kept on Zosyn Family at bedside and questions answered to their satisfaction 07/24/21 Patient is currently resting in the bed. Awake alert and oriented. No com plaints of chest pain. No shortness of breath. Currently nothing by mouth. Patient is being continued on TPN. Requiring oxygen at 3 L via nasal cannula. Laboratory data showed WBC 12.2 hemoglobin 8.7 and platelets 322 Sodium 134 potassium 3.8 chloride 106 bicarbonate 25 BUN 38 and creatinine 1.12. Patient is on antibiotics in the form of Zosyn. Encourage incentive spirometry. On IV hydration with Ringer's lactate. 07/25/2021 Patient is currently resting in the bed comfortably. Awake alert and mildly confused. Currently requiring oxygen 3 L via nasal cannula. Chest x-ray showed similar pulmonary vascular congestion and cardiomegaly. Patient has been afebrile. Continued on TPN and also Ringer's lactate. No bowel movement so far. Patient has been afebrile. Currently on antibiotics in the form of Zosyn. Laboratory data showed sodium 134 potassium 3.8 chloride 104 BUN 34 and crea tinine 1.09 and blood sugar is 137. Nephrology and pulmonary is on board. Current medications reviewed. Objective - Vital Signs Vital signs: Vital Signs Temp 97.8 F 07/25/21 14:00 Pulse 107 H 07/25/21 14:00 Resp 16 07/25/21 14:00 BP 159/80 07/25/21 14:00 Pulse Ox 97 07/25/21 14:00 Intake & Output 07/24/21 07/25/21 07/25/21 18:59 06:59 18:59 Intake Total 1016 Output Total 800 800 Balance -800 216 Intake: Intake, IV Titration 1016 Amount Sodium Acetate 32 meq In 1016 Amino Acid 5%-D20w+Lytes* E* 1,000 ml @ 60 mls/hr IV .BY DURATION [facility] Rx#: [id number] Output: Urine 800 800 Other: Voiding Method Indwelling Catheter Indwelling Catheter Indwelling Catheter # Bowel Movements 0 ABP, PAP, CO, CI - Last Documented Arterial Blood Pressure 154/64 - Exam - Exam GENERAL: The patient is alert and oriented x3, not in any acute distress. Well developed, well nourished. HEENT: Pupils are round and equally reacting to light. EOMI. No scleral icterus. No conjunctival pallor. Normocephalic, atraumatic. No pharyngeal erythema. No thyromegaly. CARDIOVASCULAR: S1 and S2 present. No murmurs, rubs, or gallops. PULMONARY: Chest is clear to auscultation, no wheezing or crackles. -ABDOMEN: Soft, nontender, nondistended, normoactive bowel sounds. No palpable organomegaly. NG tube in place. Surgical wound MUSCULOSKELETAL: No joint swelling or deformity. EXTREMITIES: No cyanosis, clubbing, or pedal edema. NEUROLOGICAL: Gross neurological examination did not reveal any focal deficits. SKIN: No rashes. no petechiae. - Labs CBC & Chem 7: 07/24/21 05:38 07/25/21 04:18 Labs: Abnormal Lab Results - Last 24 Hours (Table) 07/24/21 07/25/21 07/25/21 Range/Units 17:41 00:33 04:18 Sodium 134 L (137-145) mmol/L BUN 34 H (7-17) mg/dL Creatinine 1.09 H (0.52-1.04) mg/dL Glucose 137 H (74-99) mg/dL POC Glucose (mg/dL) 151 H 174 H (75-99) mg/dL Calcium 8.1 L (8.4-10.2) mg/dL 07/25/21 07/25/21 Range/Units 06:05 11:07 Sodium (137-145) mmol/L BUN (7-17) mg/dL Creatinine (0.52-1.04) mg/dL Glucose (74-99) mg/dL POC Glucose (mg/dL) 153 H 157 H (75-99) mg/dL Calcium (8.4-10.2) mg/dL Assessment and Plan Assessment: - Acute small bowel obstruction. Empirically IV Zosyn for possible enteritis/colitis.: She is status post for exploratory laparotomy on 07/21 with lysis of adhesions and small bowel resection Surgical wound looks closed. Surgery team on the case on TPN -Chest pain with mild tachypnea, related to mild acute CHF, diastolic with EF 55-60% per echocardiogram on 01/2021 Cardiology team consulted for preop evaluation. breathing treatment when necessary -COPD, in a previous smoker Albuterol when necessary -YIMI Due to volume depletion. Chronic kidney disease stage III from nephrosclerosis Follow renal function -GERD Omeprazole 20 mg twice a day -Rheumatoid arthritis Pain control -Essential hypertension, Catapres patch 0.2 -Chronic celiac disease Gluten-free diet -Hypoglycemia from poor oral intake: Better Improved. -Overactive bladder causing incontinence uses a brief - Colonic diverticulosis, Follow clinically -Acute kidney injury, prerenal: Better Admission creatinine 1.85. Currently 1.1 -Chronic kidney disease, stage III Secondary to hypertension -Moderate protein calorie malnutrition Supplemental nutrition IV TPN and lipids started DVT prophylaxis: Lovenox GI prophylaxis: Protonix Prognosis: Guarded Time with Patient: Greater than 30
[2021-07-26 06:09] LABS: African American GFR (CKD) 48 (>60 ml/min/1.73 sqM); Anion Gap 6 mmol/L; Blood Urea Nitrogen 37 mg/dL (7-17); Calcium 8.2 mg/dL (8.4-10.2); Carbon Dioxide 23 mmol/L (22-30); Chloride 104 mmol/L (98-107); Glucose 133 mg/dL (74-99); Non-African American GFR(CKD) 41 (>60 ml/min/1.73 sqM); Phosphorus 3.4 mg/dL (2.5-4.5); Potassium 4.3 mmol/L (3.5-5.1); Sodium 133 mmol/L (137-145)
[2021-07-26 10:45] LABS: Glucose,Whole Blood 145 mg/dL (75-99)
[2021-07-26] MEDS: KETOROLAC 15 MG/ML 1 ML VIAL IVP SCH ×2 (12:09→12:53)
[2021-07-26] MEDS: INSULIN ASPART (NovoLOG) 100 UNIT/ML VIAL SQ SCH ×4 (12:09→23:06)
[2021-07-26] MEDS: ENOXAPARIN 30 MG/0.3 ML SYRINGE SQ SCH (12:09)
[2021-07-26] MEDS: DICYCLOMINE 10 MG CAP PO SCH ×4 (12:09→20:08)
[2021-07-26] MEDS: PANTOPRAZOLE 40 MG/10 ML VIAL IVP SCH (12:10)
[2021-07-26] MEDS: OXYBUTYNIN CHLORIDE 5 MG TAB PO SCH ×2 (12:10→20:08)
[2021-07-26 12:12] LABS: Glucose,Whole Blood 123 mg/dL (75-99)
[2021-07-26] MEDS: LACTATED RINGERS 1,000 ML IV SCH (12:12)
[2021-07-26] MEDS: PIPERACILLIN-TAZOBACTAM 3.375 GM in SODIUM CHLORIDE 0.9% 100 ML IVPB SCH ×2 (12:12→20:08)
--- NOTE | 2021-07-26 12:41 | P.PN ---
Subjective Progress Note Date: 07/26/21 Principal diagnosis: abd pain 07/26/2021 patient seen in follow-up on medical surgical floor. Today's postoperative day #5, status post exploratory laparotomy with lysis of adhesions and small bowel resection. Patient is resting comfortably in bed, does not appear to be in any acute distress, however she appears weak and debilitated, but breathing comfortably, denies any specific complaints, she is awake and alert, she is oriented to person and place. She is answering questions appropriately. She remains on Zosyn for antibiotic coverage, she is on TPN, abdominal incision is covered with surgical dressing is clean dry and intact. Her daughter and her are at the bedside, patient needs a lot of encouragement and reminding to use incentive spirometer, and her incentive spirometer effort is suboptimal she is only able to achieve 500 on it today. Chest x-ray from yesterday showed pulmonary vascular congestion with cardiomegaly concerning for a component of CHF. However her oxygenation is stable, she remains on 3 L of oxygen pulse ox is 97%, she is afebrile. Breathing is nonlabored. Patient is currently on nebulized treatments on an as- needed basis, she is on GI and DVT prophylaxis. She remains nothing by mouth. Objective - Vital Signs Vital signs: Vital Signs Temp 98.5 F 07/26/21 02:53 Pulse 94 07/26/21 02:53 Resp 18 07/26/21 02:53 BP 148/83 07/26/21 02:53 Pulse Ox 97 07/26/21 02:53 Intake & Output 07/25/21 07/26/21 07/26/21 18:59 06:59 18:59 Output Total 1000 Balance -1000 Output: Urine 1000 Other: Voiding Method Indwelling Catheter Indwelling Catheter ABP, PAP, CO, CI - Last Documented Arterial Blood Pressure 154/64 - Exam GENERAL EXAM: Alert, very pleasant, weak, debilitated-looking 85-year-old white female but no acute distress, awake and alert oriented 3 breathing comfortably, on 3 L of oxygen satting 97% comfortable in no apparent distress. HEAD: Normocephalic/atraumatic. EYES: Normal reaction of pupils, equal size. Conjunctiva pink, sclera white. NOSE: Clear with pink turbinates. THROAT: No erythema or exudates. NECK: No masses, no JVD, no thyroid enlargement, no adenopathy. CHEST: No chest wall deformity. Symmetrical expansion. LUNGS: Equal air entry with no crackles, wheeze, rhonchi or dullness. CVS: Regular rate and rhythm, normal S1 and S2, no gallops, no murmurs, no rubs ABDOMEN: Soft, nontender. No hepatosplenomegaly, normal bowel sounds, no guarding or rigidity. Abdominal incision is clean dry and intact EXTREMITIES: No clubbing, no edema, no cyanosis, 2+ pulses and upper and lower extremities. MUSCULOSKELETAL: Muscle strength and tone normal. SPINE: No scoliosis or deformity SKIN: No rashes CENTRAL NERVOUS SYSTEM: Alert and oriented -3. No focal deficits, tone is normal in all 4 extremities. PSYCHIATRIC: Alert and oriented -3. Appropriate affect. Intact judgment and insight. - Labs CBC & Chem 7: 07/24/21 05:38 07/26/21 04:08 Labs: Abnormal Lab Results - Last 24 Hours (Table) 07/25/21 07/25/21 07/26/21 Range/Units 17:51 22:57 04:08 Sodium 133 L (137-145) mmol/L BUN 37 H (7-17) mg/dL Creatinine 1.19 H (0.52-1.04) mg/dL Glucose 133 H (74-99) mg/dL POC Glucose (mg/dL) 129 H 160 H (75-99) mg/dL Calcium 8.2 L (8.4-10.2) mg/dL 07/26/21 07/26/21 Range/Units 05:37 12:10 Sodium (137-145) mmol/L BUN (7-17) mg/dL Creatinine (0.52-1.04) mg/dL Glucose (74-99) mg/dL POC Glucose (mg/dL) 145 H 123 H (75-99) mg/dL Calcium (8.4-10.2) mg/dL Assessment and Plan Plan: Abdominal pain status post exploratory laparotomy with lysis of adhesions and small bowel resection. Postoperative day #5 Acute hypoxemic respiratory failure secondary to fluid volume overload Acute exacerbation of diastolic congestive heart failure History of COPD History of previous smoking Chronic kidney disease stage III Rheumatoid arthritis Hypertension Chronic celiac disease Chronic diverticulosis Plan: Continue encouraging deep breathing and coughing Consult physical therapy, Assist the patient in the recliner Overall she is weak but clinically stable Continue encouraging incentive spirometry use Dietary recommendations per surgery Weaning FiO2 Breathing treatment as needed I have personally seen and examined the patient, performed the documentation and the assessment and plan as written. Number of minutes spent on the visit: [10] I have personally seen and examined the patient and reviewed the documentation. I performed a joint evaluation with the nurse practitioner in this evaluation was done more than 20 minutes. I fully agree with the documentation above and the plan of care. Encourage increased oral intake. Continue using incentive spirometer. The patient has adequate bowel sounds. No significant flatus. Continue TPN for another 24 hours. We'll continue to follow. Time with Patient: Less than 30
[2021-07-26] MEDS: [UNRECOGNIZED DRUG - REMARK] IV SCH ×4 (12:53)
--- NOTE | 2021-07-26 13:30 | P.PN ---
Subjective Patient is seen in follow-up for acute kidney injury. Renal function fairly stable. Has a Martin catheter. Nonoliguric. Started on clear liquid diet today per surgery. Receiving TPN as well as IV fluids. Hemodynamically stable. On 3 L nasal cannula. Vital signs are stable. General: Awake. No acute distress. HEENT: Head exam is unremarkable. LUNGS: Breath sounds decreased. HEART: Rate and Rhythm are regular. ABDOMEN: Soft, no pain. EXTREMITITES: No edema. Objective - Vital Signs Vital signs: Vital Signs Temp 98.5 F 07/26/21 02:53 Pulse 94 07/26/21 02:53 Resp 18 07/26/21 02:53 BP 148/83 07/26/21 02:53 Pulse Ox 97 07/26/21 02:53 Intake & Output 07/25/21 07/26/21 07/26/21 18:59 06:59 18:59 Output Total 1000 Balance -1000 Output: Urine 1000 Other: Voiding Method Indwelling Catheter Indwelling Catheter ABP, PAP, CO, CI - Last Documented Arterial Blood Pressure 154/64 - Labs CBC & Chem 7: 07/24/21 05:38 07/26/21 04:08 Labs: Abnormal Lab Results - Last 24 Hours (Table) 07/25/21 07/25/21 07/26/21 Range/Units 17:51 22:57 04:08 Sodium 133 L (137-145) mmol/L BUN 37 H (7-17) mg/dL Creatinine 1.19 H (0.52-1.04) mg/dL Glucose 133 H (74-99) mg/dL POC Glucose (mg/dL) 129 H 160 H (75-99) mg/dL Calcium 8.2 L (8.4-10.2) mg/dL 07/26/21 07/26/21 Range/Units 05:37 12:10 Sodium (137-145) mmol/L BUN (7-17) mg/dL Creatinine (0.52-1.04) mg/dL Glucose (74-99) mg/dL POC Glucose (mg/dL) 145 H 123 H (75-99) mg/dL Calcium (8.4-10.2) mg/dL Assessment and Plan Plan: Assessment: 1. Acute kidney injury mostly prerenal secondary to hypovolemia and volume obstruction. Receiving Toradol for pain. Creatinine fairly stable at 1.19 today. 2. Chronic kidney disease stage IIIb with baseline creatinine in the range of 1.3 secondary to nephrosclerosis. 3. Benign hypertension. 4. Small bowel obstruction status post exploratory laparotomy with lysis of adhesions and small bowel resection. Surgery following. 5. Hyponatremia secondary to acute kidney injury and poor solute intake. 6. Anemia. Rule out iron deficiency. Plan: Maintain IV fluids. TPN and diet per surgery. Check iron studies. Avoid nephrotoxins. Avoid NSAIDs. Continue to monitor renal function and urine output
--- NOTE | 2021-07-26 13:57 | P.PN ---
Subjective Progress Note Date: 07/26/21 CHIEF COMPLAINT: Abdominal pain HISTORY OF PRESENT ILLNESS: Patient is postop day #5 status post exploratory laparotomy, lysis of adhesions and small bowel resection for small bowel obstruction with adhesions. Patient is lying in bed comfortably. She reports improvement in her abdominal pain. She reports that she has had some flatus. No bowel movements reported. Denies any nausea or vomiting. Afebrile. Heart rate 94 WBC 12.28 on 07/24 sodium 133 creatinine 1.19 magnesium 2.0 potassium 4.3 Patient seen and examined with Dr. hicks PHYSICAL EXAM: VITAL SIGNS: Reviewed. GENERAL: Well-developed in no acute distress. HEENT: No sclera icterus. Extraocular movements grossly intact. Moist buccal mucosa. Head is atraumatic, normocephalic. ABDOMEN: Soft. Nondistended. Incision site clean dry and intact NEUROLOGIC: Alert and oriented. Cranial nerves II through XII grossly intact. ASSESSMENT: 1. Small bowel obstruction with adhesions status post exploratory laparotomy, lysis of adhesions and small bowel resection 2. Abdominal pain 3. Hypokalemia and hypomagnesemia improved PLAN: -Start sips of clears -Add oral pain meds -Continue TPN for nutrition support until diet can be advanced -Continue supportive care -Continue pain medication as needed -Incentive spirometer ordered -GI prophylaxis Protonix and DVT prophylaxis Lovenox Physician Jewel Hole Rough Opener note has been reviewed by physician. Signing provider agrees with the documented findings, assessment, and plan of care. Objective - Vital Signs Vital signs: Vital Signs Temp 98.5 F 07/26/21 02:53 Pulse 94 07/26/21 02:53 Resp 18 07/26/21 02:53 BP 148/83 07/26/21 02:53 Pulse Ox 97 07/26/21 02:53 Intake & Output 07/25/21 07/26/21 07/26/21 18:59 06:59 18:59 Output Total 1000 Balance -1000 Output: Urine 1000 Other: Voiding Method Indwelling Catheter Indwelling Catheter ABP, PAP, CO, CI - Last Documented Arterial Blood Pressure 154/64 - Labs CBC & Chem 7: 07/24/21 05:38 07/26/21 04:08 Labs: Abnormal Lab Results - Last 24 Hours (Table) 07/25/21 07/25/21 07/26/21 Range/Units 17:51 22:57 04:08 Sodium 133 L (137-145) mmol/L BUN 37 H (7-17) mg/dL Creatinine 1.19 H (0.52-1.04) mg/dL Glucose 133 H (74-99) mg/dL POC Glucose (mg/dL) 129 H 160 H (75-99) mg/dL Calcium 8.2 L (8.4-10.2) mg/dL 07/26/21 07/26/21 Range/Units 05:37 12:10 Sodium (137-145) mmol/L BUN (7-17) mg/dL Creatinine (0.52-1.04) mg/dL Glucose (74-99) mg/dL POC Glucose (mg/dL) 145 H 123 H (75-99) mg/dL Calcium (8.4-10.2) mg/dL
[2021-07-26 18:01] LABS: Glucose,Whole Blood 129 mg/dL (75-99)
[2021-07-26] MEDS: HYDROcodone/APAP 5-325MG 1 EACH TAB PO PRN (20:08)
--- NOTE | 2021-07-26 20:20 | P.PN ---
Progress Note - Text Progress Note Date: 07/26/21 Chief Complaint: Abdominal pain History of presenting complaint: This is a 85-year-old patient of Dr. Johnson. Chronic stable medical conditions include COPD, GERD, rheumatoid arthritis, celiac disease, chronic urinary incontinence, lumbar radiculopathy , diverticulosis. Patient does use a walker. She was admitted here in January 2021 with severe bowel spasms. Patient yesterday after started having increasing abdominal pain across. Leg cramping. Along with nausea vomiting. Not able to keep anything down. Francis hot. Normally has a bowel movement every other day. Had a bowel movement yesterday. No improvement. Computed tomography scan of the ER showed air-fluid levels. Made nothing by mouth. Surgery consulted. Admitted with acute possible colitis with severe bowel spasms. Subsequent x- rays showing worsening bowel obstruction. July 21 patient underwent surgical intervention by Dr. Stauffer. Fibrotic band was causing small bowel obstruction. Patient also treated with TPN and lipids. July 21 through July 25 patient was followed by [facility] hospitalists. July 26: Patient is planning bed. Tired. Some abdominal pain. Had a bowel movement. Liquid diet. No nausea vomiting. Active Medications Hydrocodone Bitart/Acetaminophen (Hydrocodone/Apap 5-325mg 1 Each Tab) 1 each PO Q4HR PRN PRN Reason: Pain Last Admin: 07/26/21 20:08 Dose: 1 each Documented by: Albuterol/Ipratropium (Ipratropium-Albuterol 3 Ml Neb) 3 ml INHALATION RT-QID PRN PRN Reason: Shortness Of Breath Or Wheezing Benzocaine (Benzocaine [place] 1 Can) 1 spray MUCOUS MEM QID PRN; Protocol PRN Reason: Mouth Irritation Benzocaine/Menthol (Benzocaine/Menthol Lozeng 1 Each Lozenge) 1 each MUCOUS MEM Q4HR PRN PRN Reason: Sore Throat Last Admin: 07/24/21 17:55 Dose: 1 each Documented by: Clonidine HCl (Clonidine 0.2 Mg/24hr Patch) 1 patch TRANSDERM Q7D [facility] Last Admin: 07/22/21 11:03 Dose: 1 patch Documented by: Dicyclomine HCl (Dicyclomine 10 Mg Cap) 10 mg PO QID [facility] Last Admin: 07/26/21 20:08 Dose: 10 mg Documented by: Enoxaparin Sodium (Enoxaparin 30 Mg/0.3 Ml Syringe) 30 mg SQ DAILY [facility] Last Admin: 07/26/21 12:09 Dose: Not Given Documented by: Hydromorphone HCl (Hydromorphone 1 Mg/Ml 1 Ml Syringe) 1 mg IVP Q3HR PRN PRN Reason: Pain Last Admin: 07/23/21 09:03 Dose: 1 mg Documented by: Hydromorphone HCl (Hydromorphone 0.5 Mg/0.5 Ml Syringe) 0.5 mg IVP Q2H PRN PRN Reason: Breakthrough Pain Last Admin: 07/25/21 09:04 Dose: 0.5 mg Documented by: Piperacillin Sod/Tazobactam (Sod 3.375 gm/ Sodium Chloride) 100 mls @ 25 mls/hr IVPB Q12HR [facility]; Protocol Last Admin: 07/26/21 20:08 Dose: 25 mls/hr Documented by: Fat Emulsion Intravenous 250 (ml/ IV Solution) 250 mls @ 21 mls/hr IV Q7D [facility] Last Admin: 07/20/21 09:54 Dose: 21 mls/hr Documented by: Lactated Ringer's (Lactated Ringers) 1,000 mls @ 65 mls/hr IV .[id number] [facility] Last Admin: 07/26/21 12:12 Dose: Not Given Documented by: Parenteral Vitamin Supplement 10 ml/ Zinc/Copper/Manganese/Selenium 1 ml/ Sodium Acetate 40 meq/ Amino Ac/Electrol/Dextrose/Calcium 1,031 mls @ 60 mls/hr IV .BY DURATION [facility] Last Admin: 07/25/21 18:15 Dose: 60 mls/hr Documented by: Sodium Acetate 40 meq/ Amino (Ac/Electrol/Dextrose/Calcium) 1,020 mls @ 60 mls/hr IV .BY DURATION [facility] Last Admin: 07/26/21 12:53 Dose: 60 mls/hr Documented by: Insulin Aspart (Insulin Aspart (Novolog) 100 Unit/Ml Vial) 0 unit SQ Q6H [facility]; Protocol Last Admin: 07/26/21 18:14 Dose: Not Given Documented by: Naloxone HCl (Naloxone 0.4 Mg/Ml 1 Ml Vial) 0.2 mg IV Q2M PRN PRN Reason: Opioid Reversal Ondansetron HCl (Ondansetron 4 Mg/2 Ml Vial) 4 mg IVP Q8HR PRN PRN Reason: Nausea And Vomiting Last Admin: 07/26/21 00:33 Dose: 4 mg Documented by: Oxybutynin Chloride (Oxybutynin Chloride 5 Mg Tab) 5 mg PO BID [facility] Last Admin: 07/26/21 20:08 Dose: 5 mg Documented by: Pantoprazole Sodium (Pantoprazole 40 Mg/10 Ml Vial) 40 mg IVP DAILY [facility] Last Admin: 07/26/21 12:10 Dose: Not Given Documented by: Sodium Chloride (Sodium Chloride 0.9% Flush 10 Ml Syringe) 10 ml IV Q4HR PRN PRN Reason: PICC Line Sodium Chloride (Sodium Chloride 0.9% Flush 10 Ml Syringe) 10 ml IV WEEKLY [facility] Last Admin: 07/26/21 12:12 Dose: Not Given Documented by: Sodium Chloride (Sodium Chloride 0.9% Flush 10 Ml Syringe) 20 ml IV Q4HR PRN PRN Reason: PICC Line Past medical history to include: COPD, GERD, rheumatoid arthritis, questionable stroke, pubic rami fracture, celiac disease, cerebral aneurysm and AAA repair, lumbar radiculopathy, 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 . Does use a walker to get about . Family history: Throat cancer Physical examination: VITAL SIGNS: 98.1, 89, 14, 132/65, 97% on 3 L GENERAL: Reclining in bed , awake, tired EYES: Pupils equal. Conjunctiva normal. HEENT: External appearance of nose and ears normal, oral cavity grossly normal. NG tube to suction NECK: JVD not raised; masses not palpable. HEART: First and second heart sounds are normal; no edema. LUNGS: Respiratory rate normal; decreased breath sounds ABDOMEN: Soft, some tenderness, no guarding rigidity liver spleen not palpable, no masses palpable. Bowel sounds present. PSYCH: Alert and oriented x3; mood and affect anxious MUSCULOSKELETAL: Evidence of arthritis especially in the hands, INVESTIGATIONS, reviewed in the clinical context: Sodium 133 potassium 4.3 BUN 37 creatinine 1.19 Chest x-ray film personally reviewed by me-[July 17]: Multiple air fluid levels. White count 6.2 hemoglobin 11.8 platelets 228 potassium 4.6 BUN 36 creatinine 1.74 EKG tracing personally reviewed by me-normal sinus rhythm. Rate 84 CT abdomen pelvis without contrast: Chronic diverticulosis. Multiple small bowel fluid levels. Other findings noted. Previous labs: Creatinine 2.04 on January 2021. Assessment and plan: -Acute abdominal pain that started yesterday. Small bowel air-fluid levels noted. No obvious fever and chills. Empirically IV Zosyn for possible enteritis/colitis.: Not improving . IV Zosyn. NG tube discontinued . July 21 underwent abdominal surgery with fibrotic band resected and small bowel resection reattached. Started today on sips of clears. 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 Improved -TPN and lipids -Moderate protein calorie malnutrition Supplemental nutrition IV -Acute medical debility. PT OT -Follow cord IV fluids. IV Zosyn. TPN and lipids. Care was discussed with the patient started on clear liquids.. PTOT.
[2021-07-26] MEDS: HYDROmorphone 0.5 MG/0.5 ML SYRINGE IVP PRN (20:25)
[2021-07-26 23:04] LABS: Glucose,Whole Blood 156 mg/dL (75-99)
[2021-07-26] MEDS: HYDROmorphone 1 MG/ML 1 ML SYRINGE IVP PRN (23:09)
[2021-07-27] MEDS: LACTATED RINGERS 1,000 ML IV SCH (01:50)
[2021-07-27] MEDS: [UNRECOGNIZED DRUG - REMARK] IV SCH ×4 (04:05)
[2021-07-27 05:34] LABS: Glucose,Whole Blood 137 mg/dL (75-99)
[2021-07-27] MEDS: INSULIN ASPART (NovoLOG) 100 UNIT/ML VIAL SQ SCH ×4 (05:35→23:14)
[2021-07-27] MEDS: HYDROmorphone 1 MG/ML 1 ML SYRINGE IVP PRN ×2 (06:03→06:06)
[2021-07-27 06:54] LABS: African American GFR (CKD) 43 (>60 ml/min/1.73 sqM); Anion Gap 6 mmol/L; Blood Urea Nitrogen 40 mg/dL (7-17); Calcium 8.1 mg/dL (8.4-10.2); Carbon Dioxide 24 mmol/L (22-30); Chloride 104 mmol/L (98-107); Glucose 122 mg/dL (74-99); Magnesium 2.1 mg/dL (1.6-2.3); Non-African American GFR(CKD) 37 (>60 ml/min/1.73 sqM); Phosphorus 3.8 mg/dL (2.5-4.5); Potassium 4.8 mmol/L (3.5-5.1); Sodium 134 mmol/L (137-145)
[2021-07-27] MEDS: PIPERACILLIN-TAZOBACTAM 3.375 GM in SODIUM CHLORIDE 0.9% 100 ML IVPB SCH ×2 (08:12→20:23)
[2021-07-27] MEDS: FAT EMULSION 20% 250 ML in EMPTY BAG 1 BAG IV SCH (08:13)
[2021-07-27] MEDS: PANTOPRAZOLE 40 MG/10 ML VIAL IVP SCH (08:37)
[2021-07-27 09:10] LABS: Basophils # (A) 0.06 X 10*3/uL (0.00-0.10); Basophils % (A) 0.7 %; Eosinophils # (A) 0.34 X 10*3/uL (0.04-0.35); Eosinophils % (A) 4.1 %; HCT 28.1 % (37.2-46.3); HGB 8.6 g/dL (12.0-15.0); Lymphocytes # (A) 0.72 X 10*3/uL (0.90-5.00); Lymphocytes % (A) 8.6 %; MCH 28.3 pg (27.0-32.0); MCHC 30.6 g/dL (32.0-37.0); MCV 92.4 fL (80.0-97.0); Mean Platelet Volume 9.2 fL (9.5-12.2); Monocytes # (A) 0.59 X 10*3/uL (0.20-1.00); Monocytes % (A) 7.1 %; NRBC Per 100 WBC 0 /100 WBCS (0.0-0.0); Neutrophils # (A) 6.56 X 10*3/uL (1.80-7.70); Neutrophils % (A) 78.5 %; Platelet Count 404 X 10*3/uL (140-440); RBC 3.04 X 10*6/uL (4.10-5.20); WBC 8.35 X 10*3/uL (4.50-10.00)
[2021-07-27] MEDS: OXYBUTYNIN CHLORIDE 5 MG TAB PO SCH ×2 (09:47→20:23)
[2021-07-27] MEDS: ENOXAPARIN 30 MG/0.3 ML SYRINGE SQ SCH (09:47)
[2021-07-27] MEDS: DICYCLOMINE 10 MG CAP PO SCH ×4 (09:47→22:19)
[2021-07-27] MEDS: HYDROcodone/APAP 5-325MG 1 EACH TAB PO PRN ×2 (10:15→16:43)
[2021-07-27 11:25] LABS: Glucose,Whole Blood 133 mg/dL (75-99)
--- NOTE | 2021-07-27 11:50 | P.PN ---
Subjective Patient is seen in follow-up for acute kidney injury. Renal function fairly stable. Has a Martin catheter. Nonoliguric. Currently nothing by mouth. Receiving TPN as well as IV fluids. Hemodynamically stable. On 4 L nasal cannula. Family present at bedside. Vital signs are stable. General: Awake. No acute distress. HEENT: Head exam is unremarkable. LUNGS: Breath sounds decreased. HEART: Rate and Rhythm are regular. ABDOMEN: Soft, generalized tenderness present. EXTREMITITES: No edema. Objective - Vital Signs Vital signs: Vital Signs Temp 97.7 F 07/27/21 07:11 Pulse 104 H 07/27/21 07:11 Resp 21 07/27/21 07:11 BP 135/70 07/27/21 07:11 Pulse Ox 98 07/27/21 07:11 Intake & Output 07/26/21 07/27/21 07/27/21 18:59 06:59 18:59 Intake Total 1792 Output Total 700 625 Balance -700 1167 Weight 44 kg Intake: IV 880 Lactated Ringers 1,000 ml 780 @ 65 mls/hr IV .[id number] [facility] Rx#:[id number] Piperacillin-Tazobactam 3 100 .375 gm In Sodium Chloride 0.9% 100 ml @ 25 mls/hr IVPB Q12HR [facility] Rx #:[id number] Intake, IV Titration 912 Amount Sodium Acetate 40 meq In 912 Amino Acid 5%-D20w+Lytes* E* 1,000 ml @ 60 mls/hr IV .BY DURATION [facility] Rx#: [id number] Output: Urine 700 625 Other: Voiding Method Indwelling Catheter Indwelling Catheter ABP, PAP, CO, CI - Last Documented Arterial Blood Pressure 154/64 - Labs CBC & Chem 7: 07/27/21 05:13 07/27/21 05:13 Labs: Abnormal Lab Results - Last 24 Hours (Table) 07/26/21 07/26/21 07/26/21 Range/Units 12:10 17:59 23:02 RBC (4.10-5.20) X 10*6/uL Hgb (12.0-15.0) g/dL Hct (37.2-46.3) % MCHC (32.0-37.0) g/dL RDW (11.5-14.5) % MPV (9.5-12.2) fL Immature Gran # (0.00-0.04) X 10*3/uL Lymphocytes # (0.90-5.00) X 10*3/uL Sodium (137-145) mmol/L BUN (7-17) mg/dL Creatinine (0.52-1.04) mg/dL Glucose (74-99) mg/dL POC Glucose (mg/dL) 123 H 129 H 156 H (75-99) mg/dL Calcium (8.4-10.2) mg/dL 07/27/21 07/27/21 07/27/21 Range/Units 05:13 05:13 05:32 RBC 3.04 L (4.10-5.20) X 10*6/uL Hgb 8.6 L (12.0-15.0) g/dL Hct 28.1 L (37.2-46.3) % MCHC 30.6 L (32.0-37.0) g/dL RDW 15.0 H (11.5-14.5) % MPV 9.2 L (9.5-12.2) fL Immature Gran # 0.08 H (0.00-0.04) X 10*3/uL Lymphocytes # 0.72 L (0.90-5.00) X 10*3/uL Sodium 134 L (137-145) mmol/L BUN 40 H (7-17) mg/dL Creatinine 1.30 H (0.52-1.04) mg/dL Glucose 122 H (74-99) mg/dL POC Glucose (mg/dL) 137 H (75-99) mg/dL Calcium 8.1 L (8.4-10.2) mg/dL 07/27/21 Range/Units 11:23 RBC (4.10-5.20) X 10*6/uL Hgb (12.0-15.0) g/dL Hct (37.2-46.3) % MCHC (32.0-37.0) g/dL RDW (11.5-14.5) % MPV (9.5-12.2) fL Immature Gran # (0.00-0.04) X 10*3/uL Lymphocytes # (0.90-5.00) X 10*3/uL Sodium (137-145) mmol/L BUN (7-17) mg/dL Creatinine (0.52-1.04) mg/dL Glucose (74-99) mg/dL POC Glucose (mg/dL) 133 H (75-99) mg/dL Calcium (8.4-10.2) mg/dL Assessment and Plan Plan: Assessment: 1. Acute kidney injury mostly prerenal secondary to hypovolemia and volume obstruction. Was receiving Toradol for pain. Creatinine fairly stable at 1.3. 2. Chronic kidney disease stage IIIb with baseline creatinine in the range of 1.3 secondary to nephrosclerosis. 3. Benign hypertension. Stable. 4. Small bowel obstruction status post exploratory laparotomy with lysis of adhesions and small bowel resection. Surgery following. 5. Hyponatremia secondary to acute kidney injury and poor solute intake. Stable. 6. Anemia. Rule out iron deficiency. Plan: Maintain IV fluids. TPN and diet per surgery. Follow-up iron studies. Avoid nephrotoxins. Avoid NSAIDs. Continue to monitor renal function and urine output.
[2021-07-27] MEDS: METOCLOPRAMIDE 5 MG/ML 2 ML VIAL IVP SCH ×3 (13:17→23:14)
--- NOTE | 2021-07-27 13:39 | P.PN ---
Subjective Progress Note Date: 07/27/21 Principal diagnosis: abd pain 07/26/2021 patient seen in follow-up on medical surgical floor. Today's postoperative day #5, status post exploratory laparotomy with lysis of adhesions and small bowel resection. Patient is resting comfortably in bed, does not appear to be in any acute distress, however she appears weak and debilitated, but breathing comfortably, denies any specific complaints, she is awake and alert, she is oriented to person and place. She is answering questions appropriately. She remains on Zosyn for antibiotic coverage, she is on TPN, abdominal incision is covered with surgical dressing is clean dry and intact. Her daughter and her are at the bedside, patient needs a lot of encouragement and reminding to use incentive spirometer, and her incentive spirometer effort is suboptimal she is only able to achieve 500 on it today. Chest x-ray from yesterday showed pulmonary vascular congestion with cardiomegaly concerning for a component of CHF. However her oxygenation is stable, she remains on 3 L of oxygen pulse ox is 97%, she is afebrile. Breathing is nonlabored. Patient is currently on nebulized treatments on an as- needed basis, she is on GI and DVT prophylaxis. She remains nothing by mouth. On 07/27/2021 patient seen in follow-up on medical surgical floor. She is awake and alert, in no acute distress, breathing comfortably, lung sounds are clear, diminished at the bases, her incentive spirometer effort is suboptimal, she is only achieving to 50 on it today. Denies any respiratory difficulty, needs a lot of encouragement and reminding to use incentive spirometer, generally she looks weak. Her abdomen was felt to be a bit more distended on today's exam, currently she is nothing by mouth, and she remains on TPN and 60 mL per hour, lactate urine is a 65 ML per hour, and lipids at 20 ML per hour. She was up in the chair with assistance, tolerated activity fairly well. Abdominal incision is clean dry and intact, she's had no acute events overnight. These labs have been reviewed, white blood cell count is 8.35, hemoglobin is 8.6, sodium is 134, the rest of electrolytes are unremarkable, BUN is 40, creatinine is 1.30. Objective - Vital Signs Vital signs: Vital Signs Temp 97.7 F 07/27/21 07:11 Pulse 104 H 07/27/21 07:11 Resp 21 07/27/21 07:11 BP 135/70 07/27/21 07:11 Pulse Ox 98 07/27/21 07:11 Intake & Output 07/26/21 07/27/21 07/27/21 18:59 06:59 18:59 Intake Total 1792 Output Total 700 625 Balance -700 1167 Weight 44 kg Intake: IV 880 Lactated Ringers 1,000 ml 780 @ 65 mls/hr IV .[id number] [facility] Rx#:[id number] Piperacillin-Tazobactam 3 100 .375 gm In Sodium Chloride 0.9% 100 ml @ 25 mls/hr IVPB Q12HR [facility] Rx #:[id number] Intake, IV Titration 912 Amount Sodium Acetate 40 meq In 912 Amino Acid 5%-D20w+Lytes* E* 1,000 ml @ 60 mls/hr IV .BY DURATION [facility] Rx#: [id number] Output: Urine 700 625 Other: Voiding Method Indwelling Catheter Indwelling Catheter ABP, PAP, CO, CI - Last Documented Arterial Blood Pressure 154/64 - Exam GENERAL EXAM: Alert, very pleasant, weak, debilitated-looking 85-year-old white female but no acute distress, awake and alert oriented 3 breathing comfortably, on 3 L of oxygen satting 97% comfortable in no apparent distress. HEAD: Normocephalic/atraumatic. EYES: Normal reaction of pupils, equal size. Conjunctiva pink, sclera white. NOSE: Clear with pink turbinates. THROAT: No erythema or exudates. NECK: No masses, no JVD, no thyroid enlargement, no adenopathy. CHEST: No chest wall deformity. Symmetrical expansion. LUNGS: Equal air entry with no crackles, wheeze, rhonchi or dullness. CVS: Regular rate and rhythm, normal S1 and S2, no gallops, no murmurs, no rubs ABDOMEN: Soft, nontender. No hepatosplenomegaly, normal bowel sounds, no guarding or rigidity. Abdominal incision is clean dry and intact EXTREMITIES: No clubbing, no edema, no cyanosis, 2+ pulses and upper and lower extremities. MUSCULOSKELETAL: Muscle strength and tone normal. SPINE: No scoliosis or deformity SKIN: No rashes CENTRAL NERVOUS SYSTEM: Alert and oriented -3. No focal deficits, tone is normal in all 4 extremities. PSYCHIATRIC: Alert and oriented -3. Appropriate affect. Intact judgment and insight. - Labs CBC & Chem 7: 07/27/21 05:13 07/27/21 05:13 Labs: Abnormal Lab Results - Last 24 Hours (Table) 07/26/21 07/26/21 07/27/21 Range/Units 17:59 23:02 05:13 RBC 3.04 L (4.10-5.20) X 10*6/uL Hgb 8.6 L (12.0-15.0) g/dL Hct 28.1 L (37.2-46.3) % MCHC 30.6 L (32.0-37.0) g/dL RDW 15.0 H (11.5-14.5) % MPV 9.2 L (9.5-12.2) fL Immature Gran # 0.08 H (0.00-0.04) X 10*3/uL Lymphocytes # 0.72 L (0.90-5.00) X 10*3/uL Sodium (137-145) mmol/L BUN (7-17) mg/dL Creatinine (0.52-1.04) mg/dL Glucose (74-99) mg/dL POC Glucose (mg/dL) 129 H 156 H (75-99) mg/dL Calcium (8.4-10.2) mg/dL 07/27/21 07/27/21 07/27/21 Range/Units 05:13 05:32 11:23 RBC (4.10-5.20) X 10*6/uL Hgb (12.0-15.0) g/dL Hct (37.2-46.3) % MCHC (32.0-37.0) g/dL RDW (11.5-14.5) % MPV (9.5-12.2) fL Immature Gran # (0.00-0.04) X 10*3/uL Lymphocytes # (0.90-5.00) X 10*3/uL Sodium 134 L (137-145) mmol/L BUN 40 H (7-17) mg/dL Creatinine 1.30 H (0.52-1.04) mg/dL Glucose 122 H (74-99) mg/dL POC Glucose (mg/dL) 137 H 133 H (75-99) mg/dL Calcium 8.1 L (8.4-10.2) mg/dL Assessment and Plan Plan: Abdominal pain status post exploratory laparotomy with lysis of adhesions and small bowel resection. Postoperative day #6 Acute hypoxemic respiratory failure secondary to fluid volume overload Acute exacerbation of diastolic congestive heart failure History of COPD History of previous smoking Chronic kidney disease stage III Rheumatoid arthritis Hypertension Chronic celiac disease Chronic diverticulosis Plan: Clinically patient remains stable, Needs a lot of encouragement with incentive spirometry use Maintain aspiration precautions Continue with antibiotics, nutritional support recommendations per surgery No active pulmonary/critical care issues at this time We will see the patient on as-needed basis I have personally seen and examined the patient, performed the documentation and the assessment and plan as written. Number of minutes spent on the visit: [10] I have personally seen and examined the patient and reviewed the documentation. I performed a joint evaluation with the nurse practitioner in this evaluation was done more than 12 minutes. I fully agree with the documentation above and the plan of care. The patient is stable. The patient is postop day #6. No active pulmonary or cardiac issues. She needs to work on incentive spirometer. She remains on TPN. With allow oral intake and gradual advancement per surgery. We'll sign off the case. Time with Patient: Less than 30
--- NOTE | 2021-07-27 14:15 | P.PN ---
Subjective Progress Note Date: 07/27/21 CHIEF COMPLAINT: Abdominal pain HISTORY OF PRESENT ILLNESS: Patient is postop day #6 status post exploratory laparotomy, lysis of adhesions and small bowel resection for small bowel obstruction with adhesions. Patient is complaining of abdominal pain. She is more distended this morning. She denies any flatus or bowel movement. Denies any nausea or vomiting. Afebrile. WBC 12.2 800 A.35 hemoglobin is 8.6 platelets 404 creatinine 1.30 Patient seen and examined with Dr. hicks PHYSICAL EXAM: VITAL SIGNS: Reviewed. GENERAL: Well-developed in no acute distress. HEENT: No sclera icterus. Extraocular movements grossly intact. Moist buccal mucosa. Head is atraumatic, normocephalic. ABDOMEN: Soft. Patient is more distended today. Tenderness around incision site. Incision site clean dry and intact NEUROLOGIC: Alert and oriented. Cranial nerves II through XII grossly intact. ASSESSMENT: 1. Small bowel obstruction with adhesions status post exploratory laparotomy, lysis of adhesions and small bowel resection 2. Abdominal pain 3. Hypokalemia and hypomagnesemia improved PLAN: -We'll make patient nothing by mouth except for ice chips and popsicles -Ordered Reglan scheduled -Continue pain medication as needed -Continue TPN for nutrition support until diet can be advanced -Continue supportive care -Continue pain medication as needed -Incentive spirometer ordered -Encouraged patient to increase activity level -GI prophylaxis Protonix and DVT prophylaxis Lovenox Physician Sound Engineer note has been reviewed by physician. Signing provider agrees with the documented findings, assessment, and plan of care. Objective - Vital Signs Vital signs: Vital Signs Temp 97.7 F 07/27/21 07:11 Pulse 104 H 07/27/21 07:11 Resp 21 07/27/21 07:11 BP 135/70 07/27/21 07:11 Pulse Ox 98 07/27/21 07:11 Intake & Output 07/26/21 07/27/21 07/27/21 18:59 06:59 18:59 Intake Total 1792 Output Total 700 625 Balance -700 1167 Weight 44 kg Intake: IV 880 Lactated Ringers 1,000 ml 780 @ 65 mls/hr IV .[id number] [facility] Rx#:[id number] Piperacillin-Tazobactam 3 100 .375 gm In Sodium Chloride 0.9% 100 ml @ 25 mls/hr IVPB Q12HR [facility] Rx #:[id number] Intake, IV Titration 912 Amount Sodium Acetate 40 meq In 912 Amino Acid 5%-D20w+Lytes* E* 1,000 ml @ 60 mls/hr IV .BY DURATION [facility] Rx#: [id number] Output: Urine 700 625 Other: Voiding Method Indwelling Catheter Indwelling Catheter ABP, PAP, CO, CI - Last Documented Arterial Blood Pressure 154/64 - Labs CBC & Chem 7: 07/27/21 05:13 07/27/21 05:13 Labs: Abnormal Lab Results - Last 24 Hours (Table) 07/26/21 07/26/21 07/27/21 Range/Units 17:59 23:02 05:13 RBC 3.04 L (4.10-5.20) X 10*6/uL Hgb 8.6 L (12.0-15.0) g/dL Hct 28.1 L (37.2-46.3) % MCHC 30.6 L (32.0-37.0) g/dL RDW 15.0 H (11.5-14.5) % MPV 9.2 L (9.5-12.2) fL Immature Gran # 0.08 H (0.00-0.04) X 10*3/uL Lymphocytes # 0.72 L (0.90-5.00) X 10*3/uL Sodium (137-145) mmol/L BUN (7-17) mg/dL Creatinine (0.52-1.04) mg/dL Glucose (74-99) mg/dL POC Glucose (mg/dL) 129 H 156 H (75-99) mg/dL Calcium (8.4-10.2) mg/dL 07/27/21 07/27/21 07/27/21 Range/Units 05:13 05:32 11:23 RBC (4.10-5.20) X 10*6/uL Hgb (12.0-15.0) g/dL Hct (37.2-46.3) % MCHC (32.0-37.0) g/dL RDW (11.5-14.5) % MPV (9.5-12.2) fL Immature Gran # (0.00-0.04) X 10*3/uL Lymphocytes # (0.90-5.00) X 10*3/uL Sodium 134 L (137-145) mmol/L BUN 40 H (7-17) mg/dL Creatinine 1.30 H (0.52-1.04) mg/dL Glucose 122 H (74-99) mg/dL POC Glucose (mg/dL) 137 H 133 H (75-99) mg/dL Calcium 8.1 L (8.4-10.2) mg/dL
--- NOTE | 2021-07-27 15:18 | P.PN ---
Progress Note - Text Progress Note Date: 07/27/21 Chief Complaint: Abdominal pain History of presenting complaint: This is a 85-year-old patient of Dr. Johnson. Chronic stable medical conditions include COPD, GERD, rheumatoid arthritis, celiac disease, chronic urinary incontinence, lumbar radiculopathy , diverticulosis. Patient does use a walker. She was admitted here in January 2021 with severe bowel spasms. Patient yesterday after started having increasing abdominal pain across. Leg cramping. Along with nausea vomiting. Not able to keep anything down. [place] hot. Normally has a bowel movement every other day. Had a bowel movement yesterday. No improvement. Computed tomography scan of the ER showed air-fluid levels. Made nothing by mouth. Surgery consulted. Admitted with acute possible colitis with severe bowel spasms. Subsequent x- rays showing worsening bowel obstruction. July 21 patient underwent surgical intervention by Dr. Stauffer. Fibrotic band was causing small bowel obstruction. Patient also treated with TPN and lipids. July 21 through July 25 patient was followed by [facility] hospitalists. July 26: Patient is laying in bed bed. Tired. Some abdominal pain. Had a bowel movement. Liquid diet. No nausea vomiting. July 27: Abdominal pain. No nausea vomiting. No BM. Made nothing by mouth by surgery. Ordered chewing gum. TPN and lipids to continue. Tired. Active Medications Hydrocodone Bitart/Acetaminophen (Hydrocodone/Apap 5-325mg 1 Each Tab) 1 each PO Q4HR PRN PRN Reason: Pain Last Admin: 07/27/21 10:15 Dose: 1 each Documented by: Albuterol/Ipratropium (Ipratropium-Albuterol 3 Ml Neb) 3 ml INHALATION RT-QID PRN PRN Reason: Shortness Of Breath Or Wheezing Benzocaine (Benzocaine [place] 1 Can) 1 spray MUCOUS MEM QID PRN; Protocol PRN Reason: Mouth Irritation Benzocaine/Menthol (Benzocaine/Menthol Lozeng 1 Each Lozenge) 1 each MUCOUS MEM Q4HR PRN PRN Reason: Sore Throat Last Admin: 07/24/21 17:55 Dose: 1 each Documented by: Clonidine HCl (Clonidine 0.2 Mg/24hr Patch) 1 patch TRANSDERM Q7D MARÍA Last Admin: 07/22/21 11:03 Dose: 1 patch Documented by: Dicyclomine HCl (Dicyclomine 10 Mg Cap) 10 mg PO QID [facility] Last Admin: 07/27/21 12:43 Dose: 10 mg Documented by: Enoxaparin Sodium (Enoxaparin 30 Mg/0.3 Ml Syringe) 30 mg SQ DAILY [facility] Last Admin: 07/27/21 09:47 Dose: 30 mg Documented by: Hydromorphone HCl (Hydromorphone 1 Mg/Ml 1 Ml Syringe) 1 mg IVP Q3HR PRN PRN Reason: Pain Last Admin: 07/27/21 06:06 Dose: 1 mg Documented by: Hydromorphone HCl (Hydromorphone 0.5 Mg/0.5 Ml Syringe) 0.5 mg IVP Q2H PRN PRN Reason: Breakthrough Pain Last Admin: 07/26/21 20:25 Dose: 0.5 mg Documented by: Piperacillin Sod/Tazobactam (Sod 3.375 gm/ Sodium Chloride) 100 mls @ 25 mls/hr IVPB Q12HR [facility]; Protocol Last Admin: 07/27/21 08:12 Dose: 25 mls/hr Documented by: Fat Emulsion Intravenous 250 (ml/ IV Solution) 250 mls @ 21 mls/hr IV Q7D [facility] Last Admin: 07/27/21 08:13 Dose: 21 mls/hr Documented by: Lactated Ringer's (Lactated Ringers) 1,000 mls @ 65 mls/hr IV .[id number] [facility] Last Admin: 07/27/21 01:50 Dose: Not Given Documented by: Parenteral Vitamin Supplement 10 ml/ Zinc/Copper/Manganese/Selenium 1 ml/ Sodium Acetate 40 meq/ Amino Ac/Electrol/Dextrose/Calcium 1,031 mls @ 60 mls/hr IV .BY DURATION [facility] Stop: 07/27/21 20:59 Last Admin: 07/25/21 18:15 Dose: 60 mls/hr Documented by: Sodium Acetate 40 meq/ Amino (Ac/Electrol/Dextrose/Calcium) 1,020 mls @ 60 mls/hr IV .BY DURATION [facility] Stop: 07/27/21 20:59 Last Admin: 07/27/21 04:05 Dose: 60 mls/hr Documented by: Parenteral Vitamin Supplement 10 ml/ Zinc/Copper/Manganese/Selenium 1 ml/ Parenteral Electrolytes 20 ml/ Sodium Acetate 34 meq/ Sodium Phosphate 12 mmol/ Amino Acids /Dextrose 1,052 mls @ 60 mls/hr IV .BY DURATION [facility] Parenteral Electrolytes 20 ml/Sodium Acetate 34 meq/ Sodium Phosphate 12 mmol/ Amino Acids/Dextrose 1,041 mls @ 60 mls/hr IV .BY DURATION [facility] Insulin Aspart (Insulin Aspart (Novolog) 100 Unit/Ml Vial) 0 unit SQ Q6H [facility]; Protocol Last Admin: 07/27/21 12:43 Dose: 1 unit Documented by: Metoclopramide HCl (Metoclopramide 5 Mg/Ml 2 Ml Vial) 10 mg IVP Q6HR [facility] Last Admin: 07/27/21 13:17 Dose: 10 mg Documented by: Naloxone HCl (Naloxone 0.4 Mg/Ml 1 Ml Vial) 0.2 mg IV Q2M PRN PRN Reason: Opioid Reversal Ondansetron HCl (Ondansetron 4 Mg/2 Ml Vial) 4 mg IVP Q8HR PRN PRN Reason: Nausea And Vomiting Last Admin: 07/26/21 00:33 Dose: 4 mg Documented by: Oxybutynin Chloride (Oxybutynin Chloride 5 Mg Tab) 5 mg PO BID [facility] Last Admin: 07/27/21 09:47 Dose: 5 mg Documented by: Pantoprazole Sodium (Pantoprazole 40 Mg/10 Ml Vial) 40 mg IVP DAILY [facility] Last Admin: 07/27/21 08:37 Dose: 40 mg Documented by: Sodium Chloride (Sodium Chloride 0.9% Flush 10 Ml Syringe) 10 ml IV Q4HR PRN PRN Reason: PICC Line Sodium Chloride (Sodium Chloride 0.9% Flush 10 Ml Syringe) 10 ml IV WEEKLY [facility] Last Admin: 07/26/21 12:12 Dose: Not Given Documented by: Sodium Chloride (Sodium Chloride 0.9% Flush 10 Ml Syringe) 20 ml IV Q4HR PRN PRN Reason: PICC Line Past medical history to include: COPD, GERD, rheumatoid arthritis, questionable stroke, pubic rami fracture, celiac disease, cerebral aneurysm and AAA repair, lumbar radiculopathy, 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 . Does use a walker to get about . Family history: Throat cancer Physical examination: VITAL SIGNS: 98.5, 98, 21, 123/67, 94% on 4 L GENERAL: Reclining in bed , awake, tired EYES: Pupils equal. Conjunctiva normal. HEENT: External appearance of nose and ears normal, oral cavity grossly normal. NG tube to suction NECK: JVD not raised; masses not palpable. HEART: First and second heart sounds are normal; no edema. LUNGS: Respiratory rate normal; decreased breath sounds ABDOMEN: Soft, tender, no guarding rigidity liver spleen not palpable, no masses palpable. Bowel sounds present. PSYCH: Alert and oriented x3; mood and affect anxious MUSCULOSKELETAL: Evidence of arthritis especially in the hands, INVESTIGATIONS, reviewed in the clinical context: July 27: White count 8.3 hemoglobin 8.6 platelets 404 potassium 4.8 BUN 40 creatinine 1.3 Sodium 133 potassium 4.3 BUN 37 creatinine 1.19 Chest x-ray film personally reviewed by me-[July 17]: Multiple air fluid leve ls. White count 6.2 hemoglobin 11.8 platelets 228 potassium 4.6 BUN 36 creatinine 1.74 EKG tracing personally reviewed by me-normal sinus rhythm. Rate 84 CT abdomen pelvis without contrast: Chronic diverticulosis. Multiple small bowel fluid levels. Other findings noted. Previous labs: Creatinine 2.04 on January 2021. Assessment and plan: -Acute small bowel obstruction from fibrotic band. . IV Zosyn. NG tube discontinued . July 21 underwent abdominal surgery with fibrotic band resected and small bowel resection reattached. Increasing abdominal pain. -Rule out postop ileus Patient has been made nothing by mouth today. Abdominal x-ray in a.m. 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 Improved -TPN and lipids -Moderate protein calorie malnutrition Supplemental nutrition IV -Acute medical debility. PT OT -Full code IV fluids. IV Zosyn. TPN and lipids. Patient has been made nothing by mouth. Abdominal x-ray in the morning. Discussed with patient and .
[2021-07-27] MEDS: HYDROmorphone 0.5 MG/0.5 ML SYRINGE IVP PRN ×3 (15:24→22:19)
[2021-07-27] MEDS: SODIUM CHLORIDE 0.9% 1,000 ML IV SCH (15:44)
[2021-07-27 17:26] LABS: Glucose,Whole Blood 107 mg/dL (75-99)
[2021-07-27 19:50] LABS: % Iron Saturation 11.24 (12.00-45.00)
[2021-07-27 20:35] LABS: Glucose,Whole Blood 97 mg/dL (75-99)
[2021-07-27] MEDS ORDERED: 1: MVI, ADULT NO.4 WITH VIT K 10 ML, TRACE (CONC-1ML/DOSE) 1 ML, PARENTERAL ELECTROLYTES IV SCH ×6 (21:00)
[2021-07-27 23:09] LABS: Glucose,Whole Blood 119 mg/dL (75-99)
[2021-07-28] MEDS: HYDROmorphone 1 MG/ML 1 ML SYRINGE IVP PRN ×5 (01:08→14:55)
[2021-07-28] MEDS: BENZOCAINE/MENTHOL LOZENG 1 EACH LOZENGE MUCOUS MEM PRN (02:33)
[2021-07-28 04:53] LABS: African American GFR (CKD) 44 (>60 ml/min/1.73 sqM); Anion Gap 2 mmol/L; Blood Urea Nitrogen 39 mg/dL (7-17); Carbon Dioxide 24 mmol/L (22-30); Chloride 106 mmol/L (98-107); Glucose 130 mg/dL (74-99); Magnesium 2.2 mg/dL (1.6-2.3); Non-African American GFR(CKD) 38 (>60 ml/min/1.73 sqM); Phosphorus 3.9 mg/dL (2.5-4.5); Potassium 4.5 mmol/L (3.5-5.1); Sodium 132 mmol/L (137-145)
[2021-07-28 05:03] LABS: Glucose,Whole Blood 129 mg/dL (75-99)
[2021-07-28] MEDS: METOCLOPRAMIDE 5 MG/ML 2 ML VIAL IVP SCH ×4 (05:03→23:45)
[2021-07-28] MEDS: INSULIN ASPART (NovoLOG) 100 UNIT/ML VIAL SQ SCH ×4 (05:20→23:39)
[2021-07-28] MEDS: SODIUM CHLORIDE 0.9% 1,000 ML IV SCH ×2 (06:57→17:28)
--- NOTE | 2021-07-28 07:00 | XR ---
EXAMINATION TYPE: XR abdomen 2V DATE OF EXAM: 07/28/2021 CLINICAL HISTORY: Pain and distention after recent surgery TECHNIQUE: Supine and upright views of the abdomen are obtained. COMPARISON: CT abdomen and pelvis 8 days ago. FINDINGS: Gas prominent small and large bowel loops throughout the abdomen and pelvis are seen. New o verlying vertical ruth noted. Additional left midabdominal surgical clips redemonstrated. No free air. Right-sided PICC line terminating in right atrium is partially imaged. Lung bases show patchy at electatic change. Osseous structures are intact. Entire pelvis is not included. IMPRESSION: Overall nonspecific bowel gas pattern favoring postoperative ileus.
[2021-07-28] MEDS: PIPERACILLIN-TAZOBACTAM 3.375 GM in SODIUM CHLORIDE 0.9% 100 ML IVPB SCH (07:01)
[2021-07-28] MEDS: DICYCLOMINE 10 MG CAP PO SCH ×4 (07:05→20:38)
[2021-07-28] MEDS: ENOXAPARIN 30 MG/0.3 ML SYRINGE SQ SCH (07:06)
[2021-07-28] MEDS: OXYBUTYNIN CHLORIDE 5 MG TAB PO SCH ×2 (07:06→20:38)
[2021-07-28] MEDS: HYDROcodone/APAP 5-325MG 1 EACH TAB PO PRN ×2 (07:06→15:46)
[2021-07-28] MEDS: PANTOPRAZOLE 40 MG/10 ML VIAL IVP SCH (07:06)
[2021-07-28] MEDS: 1: MVI, ADULT NO.4 WITH VIT K 10 ML, TRACE (CONC-1ML/DOSE) 1 ML, PARENTERAL ELECTROLYTES IV SCH ×6 (11:20)
[2021-07-28 11:22] LABS: Glucose,Whole Blood 139 mg/dL (75-99)
--- NOTE | 2021-07-28 11:22 | P.PN ---
Subjective Patient is seen in follow-up for acute kidney injury. Renal function fairly stable. Has a Martin catheter. Nonoliguric. Currently nothing by mouth. Receiving TPN as well as IV fluids. Hemodynamically stable. On 2 L nasal cannula. No changes overnight. Vital signs are stable. General: Awake. No acute distress. HEENT: Head exam is unremarkable. LUNGS: Breath sounds decreased. HEART: Rate and Rhythm are regular. ABDOMEN: Soft, no tenderness. EXTREMITITES: No edema. Objective - Vital Signs Vital signs: Vital Signs Temp 98.9 F 07/28/21 06:59 Pulse 104 H 07/28/21 06:59 Resp 18 07/28/21 06:59 BP 158/76 07/28/21 06:59 Pulse Ox 90 L 07/28/21 06:59 Intake & Output 07/27/21 07/28/21 07/28/21 18:59 06:59 18:59 Output Total 950 1700 Balance -950 -1700 Output: Urine 950 1700 Other: Voiding Method Indwelling Catheter Indwelling Catheter Indwelling Catheter ABP, PAP, CO, CI - Last Documented Arterial Blood Pressure 154/64 - Labs CBC & Chem 7: 07/27/21 05:13 07/28/21 04:18 Labs: Abnormal Lab Results - Last 24 Hours (Table) 07/27/21 07/27/21 07/27/21 Range/Units 05:13 11:23 17:24 Sodium (137-145) mmol/L BUN (7-17) mg/dL Creatinine (0.52-1.04) mg/dL Glucose (74-99) mg/dL POC Glucose (mg/dL) 133 H 107 H (75-99) mg/dL Calcium (8.4-10.2) mg/dL Iron 20 L (50-170) ug/dL TIBC 181 L (228-460) ug/dL % Saturation 11.24 L (12.00-45.00) Transferrin 129.0 L (204.0-354.0) mg/dL Ferritin 517.0 H (10.0-291.0) ng/mL 07/27/21 07/28/21 07/28/21 Range/Units 23:06 04:18 04:59 Sodium 132 L (137-145) mmol/L BUN 39 H (7-17) mg/dL Creatinine 1.28 H (0.52-1.04) mg/dL Glucose 130 H (74-99) mg/dL POC Glucose (mg/dL) 119 H 129 H (75-99) mg/dL Calcium 8.0 L (8.4-10.2) mg/dL Iron (50-170) ug/dL TIBC (228-460) ug/dL % Saturation (12.00-45.00) Transferrin (204.0-354.0) mg/dL Ferritin (10.0-291.0) ng/mL Assessment and Plan Plan: Assessment: 1. Acute kidney injury mostly prerenal secondary to hypovolemia and volume obstruction. Was receiving Toradol for pain. Creatinine stable at 1.28. 2. Chronic kidney disease stage IIIb with baseline creatinine in the range of 1.3 secondary to nephrosclerosis. 3. Benign hypertension. Stable. 4. Small bowel obstruction status post exploratory laparotomy with lysis of adhesions and small bowel resection. Surgery following. 5. Hyponatremia secondary to acute kidney injury and poor solute intake. Stabl e. 6. Anemia. Iron deficiency noted. Plan: Maintain IV fluids - decrease rate to 50 mL an hour. TPN and diet per surgery. Add IV iron. Avoid nephrotoxins. Avoid NSAIDs. Continue to monitor renal function and urine output.
[2021-07-28] MEDS ORDERED: bisacodyL 10 MG SUPP RECTAL STA (11:24)
[2021-07-28] MEDS: SODIUM FERRIC GLUCONAT-SUCROSE 125 MG in SODIUM CHLORIDE 0.9% 100 ML IVPB SCH (13:02)
--- NOTE | 2021-07-28 13:28 | P.PN ---
Subjective Progress Note Date: 07/28/21 CHIEF COMPLAINT: Abdominal pain HISTORY OF PRESENT ILLNESS: Patient is postop day #7 status post exploratory laparotomy, lysis of adhesions and small bowel resection for small bowel obstruction with adhesions. Patient does complain of abdominal pain. She is requiring the IV Dilaudid almost every 3 hours. She's had no bowel function. She is only eating a few bites of the ice chips. She denies any nausea or vomiting. Urine output adequate. Afebrile. Heart rate 104. Abdominal x-ray overall nonspecific bowel gas pattern favoring postoperative ileus. Sodium 132 potassium 4.5 creatinine 1.28 magnesium 2.2 and level low. Nephrology has added IV iron Patient seen and examined with Dr. hicks PHYSICAL EXAM: VITAL SIGNS: Reviewed. GENERAL: Well-developed in no acute distress. HEENT: No sclera icterus. Extraocular movements grossly intact. Moist buccal mucosa. Head is atraumatic, normocephalic. ABDOMEN: Soft. Less distended. Incision site clean dry and intact. NEUROLOGIC: Alert and oriented. Cranial nerves II through XII grossly intact. ASSESSMENT: 1. Small bowel obstruction with adhesions status post exploratory laparotomy, lysis of adhesions and small bowel resection 2. Abdominal pain 3. Hypokalemia and hypomagnesemia improved 4. Postoperative ileus can be an expected finding PLAN: -Keep patient nothing by mouth except for ice chips and popsicles -Add Dulcolax suppository -Continue IV Reglan -Continue pain medication as needed -Continue TPN for nutrition support until diet can be advanced -Continue supportive care -Continue pain medication as needed -Incentive spirometer ordered -Encouraged patient to increase activity level -GI prophylaxis Protonix and DVT prophylaxis Lovenox Physician [employer] Cler[employer] Supervisor note has been reviewed by physician. Signing provider agrees with the documented findings, assessment, and plan of care. Objective - Vital Signs Vital signs: Vital Signs Temp 98.9 F 07/28/21 06:59 Pulse 104 H 07/28/21 06:59 Resp 18 07/28/21 06:59 BP 158/76 07/28/21 06:59 Pulse Ox 90 L 07/28/21 06:59 Intake & Output 07/27/21 07/28/21 07/28/21 18:59 06:59 18:59 Output Total 950 1700 Balance -950 -1700 Output: Urine 950 1700 Other: Voiding Method Indwelling Catheter Indwelling Catheter Indwelling Catheter ABP, PAP, CO, CI - Last Documented Arterial Blood Pressure 154/64 - Labs CBC & Chem 7: 07/27/21 05:13 07/28/21 04:18 Labs: Abnormal Lab Results - Last 24 Hours (Table) 07/27/21 07/27/21 07/27/21 Range/Units 05:13 17:24 23:06 Sodium (137-145) mmol/L BUN (7-17) mg/dL Creatinine (0.52-1.04) mg/dL Glucose (74-99) mg/dL POC Glucose (mg/dL) 107 H 119 H (75-99) mg/dL Calcium (8.4-10.2) mg/dL Iron 20 L (50-170) ug/dL TIBC 181 L (228-460) ug/dL % Saturation 11.24 L (12.00-45.00) Transferrin 129.0 L (204.0-354.0) mg/dL Ferritin 517.0 H (10.0-291.0) ng/mL 07/28/21 07/28/21 07/28/21 Range/Units 04:18 04:59 11:21 Sodium 132 L (137-145) mmol/L BUN 39 H (7-17) mg/dL Creatinine 1.28 H (0.52-1.04) mg/dL Glucose 130 H (74-99) mg/dL POC Glucose (mg/dL) 129 H 139 H (75-99) mg/dL Calcium 8.0 L (8.4-10.2) mg/dL Iron (50-170) ug/dL TIBC (228-460) ug/dL % Saturation (12.00-45.00) Transferrin (204.0-354.0) mg/dL Ferritin (10.0-291.0) ng/mL
[2021-07-28 16:59] LABS: Glucose,Whole Blood 125 mg/dL (75-99)
--- NOTE | 2021-07-28 18:16 | XR ---
EXAMINATION TYPE: XR chest 2V DATE OF EXAM: 07/28/2021 COMPARISON: 07/25/2021 HISTORY: Short of breath TECHNIQUE: 3 views FINDINGS: There is elevated right diaphragm and blunting right costophrenic angle. There is coarse in terstitial density in the lungs. There is some pulmonary interstitial edema. Heart size is fairly nor mal. There is right central venous catheter with tip in the superior vena cava. IMPRESSION: There is pleural fluid and reaction and atelectasis right lung base which is slightly wor se than last exam. There is increased pulmonary interstitial edema compared to last exam. Congestive heart failure not excluded. This could be combined pneumonia and congestive heart failure
[2021-07-28] MEDS: FUROSEMIDE 10 MG/ML 10 ML VIAL IV SCH ×2 (18:36→23:45)
--- NOTE | 2021-07-28 19:00 | P.PN ---
Progress Note - Text Progress Note Date: 07/28/21 Chief Complaint: Abdominal pain History of presenting complaint: This is a 85-year-old patient of Dr. Johnson. Chronic stable medical conditions include COPD, GERD, rheumatoid arthritis, celiac disease, chronic urinary incontinence, lumbar radiculopathy , diverticulosis. Patient does use a walker. She was admitted here in January 2021 with severe bowel spasms. Patient yesterday after started having increasing abdominal pain across. Leg cramping. Along with nausea vomiting. Not able to keep anything down. [place] hot. Normally has a bowel movement every other day. Had a bowel movement yesterday. No improvement. Computed tomography scan of the ER showed air-fluid levels. Made nothing by mouth. Surgery consulted. Admitted with acute possible colitis with severe bowel spasms. Subsequent x- rays showing worsening bowel obstruction. July 21 patient underwent surgical intervention by Dr. Stauffer. Fibrotic band was causing small bowel obstruction. Patient also treated with TPN and lipids. July 21 through July 25 patient was followed by [facility] hospitalists. July 26: Patient is laying in bed bed. Tired. Some abdominal pain. Had a bowel movement. Liquid diet. No nausea vomiting. July 27: Abdominal pain. No nausea vomiting. No BM. Made nothing by mouth by surgery. Ordered chewing gum. TPN and lipids to continue. Tired. July 28: Abdominal pain. Distention. No BM. Abdominal x-ray is reviewed. Ileus. Surgery informed. Dr. Stauffer ordered Dulcolax. By late in the evening patient not had a bowel movement. Patient be short of breath. Chest x- ray ordered showed pulmonary edema possible infiltrate. Changing antibiotic to IV cefepime. IV Lasix. 80 mg every 8, 2 doses. Earlier care was discussed with the patient and at the bedside. Active Medications Hydrocodone Bitart/Acetaminophen (Hydrocodone/Apap 5-325mg 1 Each Tab) 1 each PO Q4HR PRN PRN Reason: Pain Last Admin: 07/28/21 15:46 Dose: 1 each Documented by: Albuterol/Ipratropium (Ipratropium-Albuterol 3 Ml Neb) 3 ml INHALATION RT-QID PRN PRN Reason: Shortness Of Breath Or Wheezing Benzocaine (Benzocaine [place]ey[place] 1 Can) 1 spray MUCOUS MEM QID PRN; Protocol PRN Reason: Mouth Irritation Benzocaine/Menthol (Benzocaine/Menthol Lozeng 1 Each Lozenge) 1 each MUCOUS MEM Q4HR PRN PRN Reason: Sore Throat Last Admin: 07/28/21 02:33 Dose: 1 each Documented by: Clonidine HCl (Clonidine 0.2 Mg/24hr Patch) 1 patch TRANSDERM Q7D [facility] Last Admin: 07/22/21 11:03 Dose: 1 patch Documented by: Dicyclomine HCl (Dicyclomine 10 Mg Cap) 10 mg PO QID [facility] Last Admin: 07/28/21 17:27 Dose: 10 mg Documented by: Enoxaparin Sodium (Enoxaparin 30 Mg/0.3 Ml Syringe) 30 mg SQ DAILY [facility] Last Admin: 07/28/21 07:06 Dose: 30 mg Documented by: Furosemide (Furosemide 10 Mg/Ml 10 Ml Vial) 80 mg IV Q8HR [facility] Stop: 07/29/21 00:01 Hydromorphone HCl (Hydromorphone 1 Mg/Ml 1 Ml Syringe) 1 mg IVP Q3HR PRN PRN Reason: Pain Last Admin: 07/28/21 14:55 Dose: 1 mg Documented by: Hydromorphone HCl (Hydromorphone 0.5 Mg/0.5 Ml Syringe) 0.5 mg IVP Q2H PRN PRN Reason: Breakthrough Pain Last Admin: 07/27/21 22:19 Dose: 0.5 mg Documented by: Fat Emulsion Intravenous 250 (ml/ IV Solution) 250 mls @ 21 mls/hr IV Q7D [facility] Last Admin: 07/27/21 08:13 Dose: 21 mls/hr Documented by: Sodium Chloride (Saline 0.9%) 1,000 mls @ 50 mls/hr IV .Q20H [facility] Last Admin: 07/28/21 17:28 Dose: 50 mls/hr Documented by: Parenteral Vitamin Supplement 10 ml/ Zinc/Copper/Manganese/Selenium 1 ml/ Parenteral Electrolytes 20 ml/ Sodium Acetate 40 meq/ Sodium Phosphate 12 mmol/ Amino Acids /Dextrose 1,055 mls @ 60 mls/hr IV .BY DURATION [facility] Parenteral Electrolytes 20 ml/Sodium Acetate 40 meq/ Sodium Phosphate 12 mmol/ Amino Acids/Dextrose 1,044 mls @ 60 mls/hr IV .BY DURATION [facility] Last Admin: 07/28/21 11:20 Dose: 60 mls/hr Documented by: Ferric Sodium Gluconate 125 mg (/ Sodium Chloride) 110 mls @ 100 mls/hr IVPB DAILY [facility] Stop: 07/31/21 12:01 Last Admin: 07/28/21 13:02 Dose: 100 mls/hr Documented by: Cefepime HCl 2 gm/ Sodium (Chloride) 100 mls @ 25 mls/hr IVPB Q12HR [facility]; Protocol Insulin Aspart (Insulin Aspart (Novolog) 100 Unit/Ml Vial) 0 unit SQ Q6H [facility]; Protocol Last Admin: 07/28/21 17:27 Dose: Not Given Documented by: Metoclopramide HCl (Metoclopramide 5 Mg/Ml 2 Ml Vial) 10 mg IVP Q6HR [facility] Last Admin: 07/28/21 17:27 Dose: 10 mg Documented by: Naloxone HCl (Naloxone 0.4 Mg/Ml 1 Ml Vial) 0.2 mg IV Q2M PRN PRN Reason: Opioid Reversal Ondansetron HCl (Ondansetron 4 Mg/2 Ml Vial) 4 mg IVP Q8HR PRN PRN Reason: Nausea And Vomiting Last Admin: 07/26/21 00:33 Dose: 4 mg Documented by: Oxybutynin Chloride (Oxybutynin Chloride 5 Mg Tab) 5 mg PO BID [facility] Last Admin: 07/28/21 07:06 Dose: 5 mg Documented by: Pantoprazole Sodium (Pantoprazole 40 Mg/10 Ml Vial) 40 mg IVP DAILY [facility] Last Admin: 07/28/21 07:06 Dose: 40 mg Documented by: Sodium Chloride (Sodium Chloride 0.9% Flush 10 Ml Syringe) 10 ml IV Q4HR PRN PRN Reason: PICC Line Sodium Chloride (Sodium Chloride 0.9% Flush 10 Ml Syringe) 10 ml IV WEEKLY [facility] Last Admin: 07/26/21 12:12 Dose: Not Given Documented by: Sodium Chloride (Sodium Chloride 0.9% Flush 10 Ml Syringe) 20 ml IV Q4HR PRN PRN Reason: PICC Line Past medical history to include: COPD, GERD, rheumatoid arthritis, questionable stroke, pubic rami fracture, celiac disease, cerebral aneurysm and AAA repair, lumbar radiculopathy, 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 . Does use a walker to get about . Family history: Throat cancer Physical examination: VITAL SIGNS: 97.8, 101, 17, 152/83, 90% on 2 L GENERAL: Reclining in bed , awake, tired EYES: Pupils equal. Conjunctiva normal. HEENT: External appearance of nose and ears normal, oral cavity grossly normal. NG tube to suction NECK: JVD not raised; masses not palpable. HEART: First and second heart sounds are normal; no edema. LUNGS: Respiratory rate increased decreased breath sounds ABDOMEN: Soft, tender, no guarding rigidity liver spleen not palpable, no masses palpable. Bowel sounds present. PSYCH: Alert and oriented x3; mood and affect anxious MUSCULOSKELETAL: Evidence of arthritis especially in the hands, INVESTIGATIONS, reviewed in the clinical context: July 28: Sodium 132 BUN 39 creatinine 1.28. Abdominal x-ray: Dilated loops of bowel. Chest x-ray film. Pulmonary edema infiltrate July 27: White count 8.3 hemoglobin 8.6 platelets 404 potassium 4.8 BUN 40 creatinine 1.3 Sodium 133 potassium 4.3 BUN 37 creatinine 1.19 Chest x-ray film personally reviewed by me-[July 17]: Multiple air fluid levels. White count 6.2 hemoglobin 11.8 platelets 228 potassium 4.6 BUN 36 creatinine 1.74 EKG tracing personally reviewed by me-normal sinus rhythm. Rate 84 CT abdomen pelvis without contrast: Chronic diverticulosis. Multiple small bowel fluid levels. Other findings noted. Previous labs: Creatinine 2.04 on January 2021. Assessment and plan: -Acute small bowel obstruction from fibrotic band. . Received IV Zosyn. NG tube discontinued . July 21 underwent abdominal surgery with fibrotic band resected and small bowel resection reattached. Increasing abdominal pain. - postop ileus: Not improving Dulcolax ordered by surgery -Probable pneumonia suspected gram-negative organism: New diagnosis DC IV Zosyn.. 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 Improved -TPN and lipids -Moderate protein calorie malnutrition Supplemental nutrition IV -Acute medical debility. PT OT -Full code IV Lasix 80 mg. IV Zosyn changed to IV cefepime. TPN and lipids. Earlier care was discussed with the patient has been. DC IV fluids. CBC BMP procalcitonin
[2021-07-28] MEDS: CEFEPIME 2 GM in SODIUM CHLORIDE 0.9% 100 ML IVPB SCH (20:38)
[2021-07-28 21:32] LABS: Glucose,Whole Blood 157 mg/dL (75-99)
[2021-07-28 23:36] LABS: Glucose,Whole Blood 131 mg/dL (75-99)
[2021-07-29] MEDS: 1: MVI, ADULT NO.4 WITH VIT K 10 ML, TRACE (CONC-1ML/DOSE) 1 ML, PARENTERAL ELECTROLYTES IV SCH ×6 (04:28)
[2021-07-29] MEDS: HYDROmorphone 0.5 MG/0.5 ML SYRINGE IVP PRN ×2 (05:39→09:15)
[2021-07-29] MEDS: METOCLOPRAMIDE 5 MG/ML 2 ML VIAL IVP SCH ×3 (05:40→17:43)
[2021-07-29] MEDS: INSULIN ASPART (NovoLOG) 100 UNIT/ML VIAL SQ SCH ×3 (05:40→17:44)
[2021-07-29 05:44] LABS: Glucose,Whole Blood 146 mg/dL (75-99)
[2021-07-29 07:32] LABS: Basophils % (A) 0 %; Eosinophils # (A) 0.3 k/uL (0-0.7); Eosinophils % (A) 3 %; HCT 27.1 % (34.0-46.0); Lymphocytes # (A) 0.8 k/uL (1.0-4.8); Lymphocytes % (A) 8 %; MCH 28.7 pg (25.0-35.0); MCHC 30.7 g/dL (31.0-37.0); MCV 93.7 fL (80.0-100.0); Mean Platelet Volume 7.8; Monocytes # (A) 0.3 k/uL (0-1.0); Monocytes % (A) 3 %; Neutrophils # (A) 7.8 k/uL (1.3-7.7); Neutrophils % (A) 85 %; Platelet Count 517 k/uL (150-450); RBC 2.89 m/uL (3.80-5.40); WBC 9.2 k/uL (3.8-10.6)
[2021-07-29 07:36] LABS: HGB 8.3 gm/dL (11.4-16.0)
[2021-07-29 07:47] LABS: African American GFR (CKD) 36 (>60 ml/min/1.73 sqM); Anion Gap 7 mmol/L; Blood Urea Nitrogen 45 mg/dL (7-17); Carbon Dioxide 28 mmol/L (22-30); Chloride 100 mmol/L (98-107); Glucose 120 mg/dL (74-99); Non-African American GFR(CKD) 31 (>60 ml/min/1.73 sqM); Potassium 4.2 mmol/L (3.5-5.1); Sodium 135 mmol/L (137-145)
[2021-07-29 08:12] LABS: Magnesium 2.3 mg/dL (1.6-2.3); Phosphorus 4.3 mg/dL (2.5-4.5)
[2021-07-29] MEDS: PANTOPRAZOLE 40 MG/10 ML VIAL IVP SCH (09:15)
[2021-07-29] MEDS: SODIUM FERRIC GLUCONAT-SUCROSE 125 MG in SODIUM CHLORIDE 0.9% 100 ML IVPB SCH (09:16)
[2021-07-29] MEDS: CEFEPIME 2 GM in SODIUM CHLORIDE 0.9% 100 ML IVPB SCH (09:16)
[2021-07-29] MEDS: cloNIDine 0.2 MG/24HR PATCH TRANSDERM SCH (09:16)
[2021-07-29] MEDS: DICYCLOMINE 10 MG CAP PO SCH ×4 (09:17→20:49)
[2021-07-29] MEDS: OXYBUTYNIN CHLORIDE 5 MG TAB PO SCH ×2 (09:17→20:49)
[2021-07-29] MEDS: ENOXAPARIN 30 MG/0.3 ML SYRINGE SQ SCH (09:17)
[2021-07-29 11:07] LABS: Glucose,Whole Blood 137 mg/dL (75-99)
--- NOTE | 2021-07-29 11:19 | P.PN ---
Subjective Patient is seen in follow-up for acute kidney injury. Renal function worse today. She received IV Lasix yesterday due to concern for fluid overload. Has a Martin catheter. Nonoliguric. Currently nothing by mouth. Receiving TPN. Hemodynamically stable. On 4 L nasal cannula. Sitting up in chair. Family present at bedside. More alert today. Vital signs are stable. General: Awake. No acute distress. HEENT: Head exam is unremarkable. LUNGS: Breath sounds decreased. HEART: Rate and Rhythm are regular. ABDOMEN: Soft, no tenderness. EXTREMITITES: No edema. Objective - Vital Signs Vital signs: Vital Signs Temp 98.3 F 07/29/21 07:49 Pulse 86 07/29/21 07:49 Resp 18 07/29/21 07:49 BP 96/57 07/29/21 07:49 Pulse Ox 98 07/29/21 07:49 Intake & Output 07/28/21 07/29/21 07/29/21 18:59 06:59 18:59 Intake Total 1028 Output Total 1000 Balance -1000 1028 Weight 44 kg Intake: Intake, IV Titration 1028 Amount Parenteral Electrolytes 1028 20 ml Sodium Acetate 40 meq Sodium Phosphate 12 mmol In Amino Acids 5 %/ Dextrose 20 % 1,000 ml @ 60 mls/hr IV .BY DURATION [facility] Rx#:[id number] Output: Urine 1000 Other: Voiding Method Indwelling Catheter Indwelling Catheter Indwelling Catheter ABP, PAP, CO, CI - Last Documented Arterial Blood Pressure 154/64 - Labs CBC & Chem 7: 07/29/21 06:47 07/29/21 06:47 Labs: Abnormal Lab Results - Last 24 Hours (Table) 07/28/21 07/28/21 07/28/21 Range/Units 11:21 16:55 21:31 RBC (3.80-5.40) m/uL Hgb (11.4-16.0) gm/dL Hct (34.0-46.0) % MCHC (31.0-37.0) g/dL Plt Count (150-450) k/uL Neutrophils # (1.3-7.7) k/uL Lymphocytes # (1.0-4.8) k/uL Sodium (137-145) mmol/L BUN (7-17) mg/dL Creatinine (0.52-1.04) mg/dL Glucose (74-99) mg/dL POC Glucose (mg/dL) 139 H 125 H 157 H (75-99) mg/dL Calcium (8.4-10.2) mg/dL Procalcitonin (0.02-0.09) ng/mL 07/28/21 07/29/21 07/29/21 Range/Units 23:35 05:30 06:47 RBC (3.80-5.40) m/uL Hgb (11.4-16.0) gm/dL Hct (34.0-46.0) % MCHC (31.0-37.0) g/dL Plt Count (150-450) k/uL Neutrophils # (1.3-7.7) k/uL Lymphocytes # (1.0-4.8) k/uL Sodium (137-145) mmol/L BUN (7-17) mg/dL Creatinine (0.52-1.04) mg/dL Glucose (74-99) mg/dL POC Glucose (mg/dL) 131 H 146 H (75-99) mg/dL Calcium (8.4-10.2) mg/dL Procalcitonin 2.11 H (0.02-0.09) ng/mL 07/29/21 07/29/21 07/29/21 Range/Units 06:47 06:47 11:04 RBC 2.89 L (3.80-5.40) m/uL Hgb 8.3 L D (11.4-16.0) gm/dL Hct 27.1 L (34.0-46.0) % MCHC 30.7 L (31.0-37.0) g/dL Plt Count 517 H (150-450) k/uL Neutrophils # 7.8 H (1.3-7.7) k/uL Lymphocytes # 0.8 L (1.0-4.8) k/uL Sodium 135 L (137-145) mmol/L BUN 45 H (7-17) mg/dL Creatinine 1.51 H (0.52-1.04) mg/dL Glucose 120 H (74-99) mg/dL POC Glucose (mg/dL) 137 H (75-99) mg/dL Calcium 8.0 L (8.4-10.2) mg/dL Procalcitonin (0.02-0.09) ng/mL Assessment and Plan Plan: Assessment: 1. Acute kidney injury mostly prerenal secondary to hypovolemia and volume obstruction. Was receiving Toradol for pain. Creatinine 1.51 today. Worsened from Lasix given yesterday. 2. Chronic kidney disease stage IIIb with baseline creatinine in the range of 1.3 secondary to nephrosclerosis. 3. Benign hypertension. Stable. 4. Small bowel obstruction status post exploratory laparotomy with lysis of adhesions and small bowel resection. Surgery following. 5. Hyponatremia secondary to acute kidney injury and poor solute intake. Better. 6. Anemia. Iron deficiency noted. 7. Volume overload. Plan: Off IV fluids. TPN and diet per surgery. Add oral Lasix 40 mg once daily. Maintain IV iron. Avoid nephrotoxins. Avoid NSAIDs. Continue to monitor renal function and urine output. DC clonidine patch as blood pressure is low.
[2021-07-29] MEDS ORDERED: ACETAMINOPHEN TAB 325 MG TAB PO PRN (12:00)
[2021-07-29] MEDS: FUROSEMIDE 40 MG TAB PO SCH (12:18)
--- NOTE | 2021-07-29 13:37 | P.PN ---
Subjective Progress Note Date: 07/29/21 CHIEF COMPLAINT: Abdominal pain HISTORY OF PRESENT ILLNESS: Patient is postop day #8 status post exploratory laparotomy, lysis of adhesions and small bowel resection for small bowel obstruction with adhesions. Patient continues to complain of the same abdominal pain. She is requiring the IV Dilaudid. Her abdomen is distended. She did have a small smear of a BM with the duplex suppository. No nausea or vomiting reported. She did have a low-grade temp of 100.2 last night tachycardic heart rate of 112 but now improved to 86. white count is 9.2. Hemoglobin is 8.3 platelets 517 creatinine is up at 1.51 She is nothing by mouth except for ice chips and popsicles. Patient seen and examined with Dr. hicks PHYSICAL EXAM: VITAL SIGNS: Reviewed. GENERAL: Well-developed in no acute distress. HEENT: No sclera icterus. Extraocular movements grossly intact. Moist buccal mucosa. Head is atraumatic, normocephalic. ABDOMEN: Distended. Tender with palpation Incision site clean dry and intact. NEUROLOGIC: Alert and oriented. Cranial nerves II through XII grossly intact. ASSESSMENT: 1. Small bowel obstruction with adhesions status post exploratory laparotomy, lysis of adhesions and small bowel resection 2. Abdominal pain 3. Hypokalemia and hypomagnesemia improved 4. Postoperative ileus can be an expected finding 5. Iron deficiency anemia receiving IV iron PLAN: -Keep patient nothing by mouth except for ice chips and popsicles -Continue IV Reglan -Continue pain medication as needed -Continue TPN for nutrition support until diet can be advanced -Continue supportive care -Continue pain medication as needed -Encouraged patient to use incentive spirometer -Encouraged patient to increase activity level -GI prophylaxis Protonix and DVT prophylaxis Lovenox Physician Trackwalker note has been reviewed by physician. Signing provider agrees with the documented findings, assessment, and plan of care. Objective - Vital Signs Vital signs: Vital Signs Temp 98.3 F 07/29/21 07:49 Pulse 86 07/29/21 07:49 Resp 18 07/29/21 07:49 BP 96/57 07/29/21 07:49 Pulse Ox 98 07/29/21 07:49 Intake & Output 07/28/21 07/29/21 07/29/21 18:59 06:59 18:59 Intake Total 1028 Output Total 1000 Balance -1000 1028 Weight 44 kg Intake: Intake, IV Titration 1028 Amount Parenteral Electrolytes 1028 20 ml Sodium Acetate 40 meq Sodium Phosphate 12 mmol In Amino Acids 5 %/ Dextrose 20 % 1,000 ml @ 60 mls/hr IV .BY DURATION [facility] Rx#:[id number] Output: Urine 1000 Other: Voiding Method Indwelling Catheter Indwelling Catheter Indwelling Catheter ABP, PAP, CO, CI - Last Documented Arterial Blood Pressure 154/64 - Labs CBC & Chem 7: 07/29/21 06:47 07/29/21 06:47 Labs: Abnormal Lab Results - Last 24 Hours (Table) 07/28/21 07/28/21 07/28/21 Range/Units 16:55 21:31 23:35 RBC (3.80-5.40) m/uL Hgb (11.4-16.0) gm/dL Hct (34.0-46.0) % MCHC (31.0-37.0) g/dL Plt Count (150-450) k/uL Neutrophils # (1.3-7.7) k/uL Lymphocytes # (1.0-4.8) k/uL Sodium (137-145) mmol/L BUN (7-17) mg/dL Creatinine (0.52-1.04) mg/dL Glucose (74-99) mg/dL POC Glucose (mg/dL) 125 H 157 H 131 H (75-99) mg/dL Calcium (8.4-10.2) mg/dL Procalcitonin (0.02-0.09) ng/mL 07/29/21 07/29/21 07/29/21 Range/Units 05:30 06:47 06:47 RBC 2.89 L (3.80-5.40) m/uL Hgb 8.3 L D (11.4-16.0) gm/dL Hct 27.1 L (34.0-46.0) % MCHC 30.7 L (31.0-37.0) g/dL Plt Count 517 H (150-450) k/uL Neutrophils # 7.8 H (1.3-7.7) k/uL Lymphocytes # 0.8 L (1.0-4.8) k/uL Sodium (137-145) mmol/L BUN (7-17) mg/dL Creatinine (0.52-1.04) mg/dL Glucose (74-99) mg/dL POC Glucose (mg/dL) 146 H (75-99) mg/dL Calcium (8.4-10.2) mg/dL Procalcitonin 2.11 H (0.02-0.09) ng/mL 07/29/21 07/29/21 Range/Units 06:47 11:04 RBC (3.80-5.40) m/uL Hgb (11.4-16.0) gm/dL Hct (34.0-46.0) % MCHC (31.0-37.0) g/dL Plt Count (150-450) k/uL Neutrophils # (1.3-7.7) k/uL Lymphocytes # (1.0-4.8) k/uL Sodium 135 L (137-145) mmol/L BUN 45 H (7-17) mg/dL Creatinine 1.51 H (0.52-1.04) mg/dL Glucose 120 H (74-99) mg/dL POC Glucose (mg/dL) 137 H (75-99) mg/dL Calcium 8.0 L (8.4-10.2) mg/dL Procalcitonin (0.02-0.09) ng/mL
--- NOTE | 2021-07-29 14:59 | P.PN ---
Progress Note - Text Progress Note Date: 07/29/21 Chief Complaint: Abdominal pain History of presenting complaint: This is a 85-year-old patient of Dr. Johnson. Chronic stable medical conditions include COPD, GERD, rheumatoid arthritis, celiac disease, chronic urinary incontinence, lumbar radiculopathy , diverticulosis. Patient does use a walker. She was admitted here in January 2021 with severe bowel spasms. Patient yesterday after started having increasing abdominal pain across. Leg cramping. Along with nausea vomiting. Not able to keep anything down. [place] hot. Normally has a bowel movement every other day. Had a bowel movement yesterday. No improvement. Computed tomography scan of the ER showed air-fluid levels. Made nothing by mouth. Surgery consulted. Admitted with acute possible colitis with severe bowel spasms. Subsequent x- rays showing worsening bowel obstruction. July 21 patient underwent surgical intervention by Dr. Stauffer. Fibrotic band was causing small bowel obstruction. Patient also treated with TPN and lipids. July 21 through July 25 patient was followed by [facility] hospitalists. July 26: Patient is laying in bed bed. Tired. Some abdominal pain. Had a bowel movement. Liquid diet. No nausea vomiting. July 27: Abdominal pain. No nausea vomiting. No BM. Made nothing by mouth by surgery. Ordered chewing gum. TPN and lipids to continue. Tired. July 28: Abdominal pain. Distention. No BM. Abdominal x-ray is reviewed. Ileus. Surgery informed. Dr. Stauffer ordered Dulcolax. By late in the evening patient not had a bowel movement. Patient be short of breath. Chest x- ray ordered showed pulmonary edema possible infiltrate. Changing antibiotic to IV cefepime. IV Lasix. 80 mg every 8, 2 doses. Earlier care was discussed with the patient and at the bedside. July 21: Abdominal pain still present. No response to suppository yesterday. Breathing better with IV Lasix. On ice chips. Discussed with the patient has been. No nausea vomiting. Started on IV cefepime yesterday for pneumonia Active Medications Acetaminophen (Acetaminophen Tab 325 Mg Tab) 650 mg PO Q4HR PRN PRN Reason: Fever and/ or Pain Hydrocodone Bitart/Acetaminophen (Hydrocodone/Apap 5-325mg 1 Each Tab) 1 each PO Q4HR PRN PRN Reason: Pain Last Admin: 07/28/21 15:46 Dose: 1 each Documented by: Albuterol/Ipratropium (Ipratropium-Albuterol 3 Ml Neb) 3 ml INHALATION RT-QID PRN PRN Reason: Shortness Of Breath Or Wheezing Benzocaine (Benzocaine [place] 1 Can) 1 spray MUCOUS MEM QID PRN; Protocol PRN Reason: Mouth Irritation Benzocaine/Menthol (Benzocaine/Menthol Lozeng 1 Each Lozenge) 1 each MUCOUS MEM Q4HR PRN PRN Reason: Sore Throat Last Admin: 07/28/21 02:33 Dose: 1 each Documented by: Dicyclomine HCl (Dicyclomine 10 Mg Cap) 10 mg PO QID [facility] Last Admin: 07/29/21 12:23 Dose: 10 mg Documented by: Enoxaparin Sodium (Enoxaparin 30 Mg/0.3 Ml Syringe) 30 mg SQ DAILY [facility] Last Admin: 07/29/21 09:17 Dose: 30 mg Documented by: Furosemide (Furosemide 40 Mg Tab) 40 mg PO DAILY [facility] Last Admin: 07/29/21 12:18 Dose: Not Given Documented by: Hydromorphone HCl (Hydromorphone 1 Mg/Ml 1 Ml Syringe) 1 mg IVP Q3HR PRN PRN Reason: Pain Last Admin: 07/28/21 14:55 Dose: 1 mg Documented by: Hydromorphone HCl (Hydromorphone 0.5 Mg/0.5 Ml Syringe) 0.5 mg IVP Q2H PRN PRN Reason: Breakthrough Pain Last Admin: 07/29/21 09:15 Dose: 0.5 mg Documented by: Fat Emulsion Intravenous 250 (ml/ IV Solution) 250 mls @ 21 mls/hr IV Q7D [facility] Last Admin: 07/27/21 08:13 Dose: 21 mls/hr Documented by: Parenteral Vitamin Supplement 10 ml/ Zinc/Copper/Manganese/Selenium 1 ml/ Parenteral Electrolytes 20 ml/ Sodium Acetate 40 meq/ Sodium Phosphate 12 mmol/ Amino Acids /Dextrose 1,055 mls @ 60 mls/hr IV .BY DURATION [facility] Stop: 07/29/21 21:30 Parenteral Electrolytes 20 ml/Sodium Acetate 40 meq/ Sodium Phosphate 12 mmol/ Amino Acids/Dextrose 1,044 mls @ 60 mls/hr IV .BY DURATION [facility] Stop: 07/29/21 21:30 Last Admin: 07/29/21 04:28 Dose: 60 mls/hr Documented by: Ferric Sodium Gluconate 125 mg (/ Sodium Chloride) 110 mls @ 100 mls/hr IVPB DAILY [facility] Stop: 07/31/21 12:01 Last Admin: 07/29/21 09:16 Dose: 100 mls/hr Documented by: Parenteral Vitamin Supplement 10 ml/ Zinc/Copper/Manganese/Selenium 1 ml/ Parenteral Electrolytes 20 ml/ Sodium Acetate 40 meq/ Sodium Chloride 20 meq/ Sodium Phosphate 9 mmol/ Amino Acids/Dextrose 1,062 mls @ 60 mls/hr IV .BY DURATION [facility] Parenteral Electrolytes 20 ml/Sodium Acetate 40 meq/ Sodium Chloride 20 meq/ Sodium Phosphate 9 mmol/ Amino Acids/Dextrose 1,051 mls @ 60 mls/hr IV .BY DURATION [facility] Cefepime HCl 1 gm/ Sodium (Chloride) 50 mls @ 12.5 mls/hr IVPB Q12HR [facility] Insulin Aspart (Insulin Aspart (Novolog) 100 Unit/Ml Vial) 0 unit SQ Q6H [facility]; Protocol Last Admin: 07/29/21 12:18 Dose: Not Given Documented by: Metoclopramide HCl (Metoclopramide 5 Mg/Ml 2 Ml Vial) 10 mg IVP Q6HR [facility] Last Admin: 07/29/21 12:23 Dose: 10 mg Documented by: Naloxone HCl (Naloxone 0.4 Mg/Ml 1 Ml Vial) 0.2 mg IV Q2M PRN PRN Reason: Opioid Reversal Ondansetron HCl (Ondansetron 4 Mg/2 Ml Vial) 4 mg IVP Q8HR PRN PRN Reason: Nausea And Vomiting Last Admin: 07/26/21 00:33 Dose: 4 mg Documented by: Oxybutynin Chloride (Oxybutynin Chloride 5 Mg Tab) 5 mg PO BID [facility] Last Admin: 07/29/21 09:17 Dose: 5 mg Documented by: Pantoprazole Sodium (Pantoprazole 40 Mg/10 Ml Vial) 40 mg IVP DAILY [facility] Last Admin: 07/29/21 09:15 Dose: 40 mg Documented by: Sodium Chloride (Sodium Chloride 0.9% Flush 10 Ml Syringe) 10 ml IV Q4HR PRN PRN Reason: PICC Line Sodium Chloride (Sodium Chloride 0.9% Flush 10 Ml Syringe) 10 ml IV WEEKLY [facility] Last Admin: 07/26/21 12:12 Dose: Not Given Documented by: Sodium Chloride (Sodium Chloride 0.9% Flush 10 Ml Syringe) 20 ml IV Q4HR PRN PRN Reason: PICC Line Past medical history to include: COPD, GERD, rheumatoid arthritis, questionable stroke, pubic rami fracture, celiac disease, cerebral aneurysm and AAA repair, lumbar radiculopathy, 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 . Does use a walker to get about . Family history: Throat cancer Physical examination: VITAL SIGNS: 98.3, 86, 18, 96/57, 98% 4 L GENERAL: Reclining in bed , awake, tired EYES: Pupils equal. Conjunctiva normal. HEENT: External appearance of nose and ears normal, oral cavity grossly normal. NG tube to suction NECK: JVD not raised; masses not palpable. HEART: First and second heart sounds are normal; no edema. LUNGS: Respiratory rate increased decreased breath sounds ABDOMEN: Soft, tender, no guarding rigidity liver spleen not palpable, no masses palpable. Bowel sounds present. PSYCH: Alert and oriented x3; mood and affect anxious MUSCULOSKELETAL: Evidence of arthritis especially in the hands, INVESTIGATIONS, reviewed in the clinical context: July 29: White count 9.2 hemoglobin 8.3 platelets 517 sodium 135 potassium 4.2 BUN 45 creatinine 1.5 bun pro-calcitonin 2.11 July 28: Sodium 132 BUN 39 creatinine 1.28. Abdominal x-ray: Dilated loops of bowel. Chest x-ray film. Pulmonary edema infiltrate July 27: White count 8.3 hemoglobin 8.6 platelets 404 potassium 4.8 BUN 40 creatinine 1.3 Sodium 133 potassium 4.3 BUN 37 creatinine 1.19 Chest x-ray film personally reviewed by me-[July 17]: Multiple air fluid levels. White count 6.2 hemoglobin 11.8 platelets 228 potassium 4.6 BUN 36 creatinine 1.74 EKG tracing personally reviewed by me-normal sinus rhythm. Rate 84 CT abdomen pelvis without contrast: Chronic diverticulosis. Multiple small bowel fluid levels. Other findings noted. Previous labs: Creatinine 2.04 on January 2021. Assessment and plan: -Acute small bowel obstruction from fibrotic band. . Received IV Zosyn. NG tube discontinued . July 21 underwent abdominal surgery with fibrotic band resected and small bowel resection reattached. Increasing abdominal pain. - postop ileus: Not improving No response to Dulcolax. On ice chips -Probable pneumonia suspected gram-negative organism: New diagnosis DC IV Zosyn.. Start IV cefepime -Acute pulmonary edema from IV fluids: Better Received IV Lasix -COPD, in a previous smoker Albuterol when necessary -Chronic kidney disease stage III from nephrosclerosis Follow renal function -GERD Omeprazole 20 mg twice a day -Rheumatoid arthritis Pain control -Essential hypertension, Catapres patch 0.2 -Chronic celiac disease Gluten-free diet -Hypoglycemia from poor oral intake: Better -Overactive bladder causing incontinence uses a brief - Colonic diverticulosis, Follow clinically -Metabolic acidosis from renal failure: Better IV bicarbonate drip-stop -Acute kidney injury, prerenal: Better Admission creatinine 1.85. Improved -TPN and lipids -Moderate protein calorie malnutrition Supplemental nutrition IV -Acute medical debility. PT OT -Full code IV cefepime. TPN and lipids. Received IV Lasix yesterday. Follow labs closely. Repeat abdominal x-ray in the morning.
[2021-07-29 17:06] LABS: Glucose,Whole Blood 153 mg/dL (75-99)
[2021-07-29] MEDS: CEFEPIME 1 GM in SODIUM CHLORIDE 0.9% 50 ML IVPB SCH (20:49)
[2021-07-29] MEDS ORDERED: 1: MVI, ADULT NO.4 WITH VIT K 10 ML, TRACE (CONC-1ML/DOSE) 1 ML, PARENTERAL ELECTROLYTES IV SCH ×7 (22:00)
[2021-07-30 00:17] LABS: Glucose,Whole Blood 144 mg/dL (75-99)
[2021-07-30] MEDS: METOCLOPRAMIDE 5 MG/ML 2 ML VIAL IVP SCH ×4 (00:24→18:08)
[2021-07-30] MEDS: INSULIN ASPART (NovoLOG) 100 UNIT/ML VIAL SQ SCH ×4 (00:24→18:08)
[2021-07-30 05:14] LABS: African American GFR (CKD) 39 (>60 ml/min/1.73 sqM); Anion Gap 3 mmol/L; Blood Urea Nitrogen 46 mg/dL (7-17); Calcium 8.3 mg/dL (8.4-10.2); Carbon Dioxide 31 mmol/L (22-30); Chloride 101 mmol/L (98-107); Glucose 136 mg/dL (74-99); Magnesium 2.4 mg/dL (1.6-2.3); Non-African American GFR(CKD) 34 (>60 ml/min/1.73 sqM); Phosphorus 3.6 mg/dL (2.5-4.5); Potassium 4.1 mmol/L (3.5-5.1); Sodium 135 mmol/L (137-145)
[2021-07-30 06:15] LABS: Glucose,Whole Blood 153 mg/dL (75-99)
--- NOTE | 2021-07-30 08:40 | XR ---
EXAMINATION TYPE: XR abdomen 1V DATE OF EXAM: 07/30/2021 8:22 AM CLINICAL HISTORY: Abdominal pain TECHNIQUE: Single portable supine KUB images of the abdomen is obtained. COMPARISON: Abdominal x-ray from 2 days earlier. FINDINGS: Gas prominent small and large bowel loops throughout the abdomen and pelvis are redemonstra [place]. Overlying vertical ruth again seen. Additional left midabdominal surgical clips redemonstrate d. Lung bases not included. Surgical screws through healed fracture left proximal femur noted. Scatte red bilateral pelvic phleboliths inferiorly noted. IMPRESSION: Overall nonspecific bowel gas pattern favoring persistent postoperative ileus. No signif icant interval change.
[2021-07-30] MEDS: PANTOPRAZOLE 40 MG/10 ML VIAL IVP SCH (09:00)
[2021-07-30] MEDS: DICYCLOMINE 10 MG CAP PO SCH (09:00)
[2021-07-30] MEDS: ENOXAPARIN 30 MG/0.3 ML SYRINGE SQ SCH (09:00)
[2021-07-30] MEDS: HYDROmorphone 0.5 MG/0.5 ML SYRINGE IVP PRN (09:00)
[2021-07-30] MEDS: FUROSEMIDE 40 MG TAB PO SCH (09:00)
[2021-07-30] MEDS: OXYBUTYNIN CHLORIDE 5 MG TAB PO SCH ×2 (09:00→20:21)
[2021-07-30] MEDS: SODIUM FERRIC GLUCONAT-SUCROSE 125 MG in SODIUM CHLORIDE 0.9% 100 ML IVPB SCH (10:34)
[2021-07-30] MEDS: CEFEPIME 1 GM in SODIUM CHLORIDE 0.9% 50 ML IVPB SCH ×2 (10:34→20:21)
[2021-07-30 10:35] LABS: HCT 26.1 % (37.2-46.3); MCH 28.7 pg (27.0-32.0); MCHC 30.7 g/dL (32.0-37.0); MCV 93.5 fL (80.0-97.0); Mean Platelet Volume 9.4 fL (9.5-12.2); NRBC Per 100 WBC 0 /100 WBCS (0.0-0.0); Platelet Count 584 X 10*3/uL (140-440); RBC 2.79 X 10*6/uL (4.10-5.20); RDW 14.6 % (11.5-14.5); WBC 9.27 X 10*3/uL (4.50-10.00)
[2021-07-30] MEDS: HYDROcodone/APAP 5-325MG 1 EACH TAB PO PRN (10:35)
--- NOTE | 2021-07-30 11:05 | P.PN ---
Subjective Patient is seen in follow-up for acute kidney injury. Renal function little better today. Maintain on oral Lasix. Nonoliguric. Receiving TPN. Nothing by mouth. Surgery following. Hemodynamically stable. Vital signs are stable. General: Awake. No acute distress. HEENT: Head exam is unremarkable. LUNGS: Breath sounds decreased. HEART: Rate and Rhythm are regular. ABDOMEN: Soft, no tenderness. EXTREMITITES: No edema. Objective - Vital Signs Vital signs: Vital Signs Temp 98.0 F 07/30/21 07:38 Pulse 97 07/30/21 07:38 Resp 17 07/30/21 07:38 BP 108/58 07/30/21 07:38 Pulse Ox 96 07/30/21 07:38 Intake & Output 07/29/21 07/30/21 07/30/21 18:59 06:59 18:59 Intake Total 730 Balance 730 Intake: Intake, IV Titration 680 Amount Cefepime 2 gm In Sodium 100 Chloride 0.9% 100 ml @ 25 mls/hr IVPB Q12HR [facility] Rx #:[id number] Mvi, Adult No.4 with Vit 480 K 10 ml Trace (Conc-1Ml/ Dose) 1 ml Parenteral Electrolytes 20 ml Sodium Acetate 40 meq Sodium Chloride 2.5MEQ/ml Vial 20 meq Sodium Phosphate 9 mmol In Amino Acids 5 %/ Dextrose 20 % 1,000 ml @ 60 mls/hr IV .BY DURATION [facility] Rx#:[id number] Sodium Ferric Gluconat- 100 Sucrose 125 mg In Sodium Chloride 0.9% 100 ml @ 100 mls/hr IVPB DAILY [facility] Rx#:[id number] Oral 50 Other: Voiding Method Indwelling Catheter Indwelling Catheter ABP, PAP, CO, CI - Last Documented Arterial Blood Pressure 154/64 - Labs CBC & Chem 7: 07/30/21 04:28 07/30/21 04:28 Labs: Abnormal Lab Results - Last 24 Hours (Table) 07/29/21 07/29/21 07/29/21 Range/Units 06:47 11:04 17:03 RBC (4.10-5.20) X 10*6/uL Hgb (12.0-15.0) g/dL Hct (37.2-46.3) % MCHC (32.0-37.0) g/dL RDW (11.5-14.5) % Plt Count (140-440) X 10*3/uL MPV (9.5-12.2) fL Sodium (137-145) mmol/L Carbon Dioxide (22-30) mmol/L BUN (7-17) mg/dL Creatinine (0.52-1.04) mg/dL Glucose (74-99) mg/dL POC Glucose (mg/dL) 137 H 153 H (75-99) mg/dL Calcium (8.4-10.2) mg/dL Magnesium (1.6-2.3) mg/dL Procalcitonin 2.11 H (0.02-0.09) ng/mL 07/30/21 07/30/21 07/30/21 Range/Units 00:15 04:28 04:28 RBC 2.79 L (4.10-5.20) X 10*6/uL Hgb 8.0 L (12.0-15.0) g/dL Hct 26.1 L (37.2-46.3) % MCHC 30.7 L (32.0-37.0) g/dL RDW 14.6 H (11.5-14.5) % Plt Count 584 H (140-440) X 10*3/uL MPV 9.4 L (9.5-12.2) fL Sodium 135 L (137-145) mmol/L Carbon Dioxide 31 H (22-30) mmol/L BUN 46 H (7-17) mg/dL Creatinine 1.40 H (0.52-1.04) mg/dL Glucose 136 H (74-99) mg/dL POC Glucose (mg/dL) 144 H (75-99) mg/dL Calcium 8.3 L (8.4-10.2) mg/dL Magnesium 2.4 H (1.6-2.3) mg/dL Procalcitonin (0.02-0.09) ng/mL 07/30/21 Range/Units 06:14 RBC (4.10-5.20) X 10*6/uL Hgb (12.0-15.0) g/dL Hct (37.2-46.3) % MCHC (32.0-37.0) g/dL RDW (11.5-14.5) % Plt Count (140-440) X 10*3/uL MPV (9.5-12.2) fL Sodium (137-145) mmol/L Carbon Dioxide (22-30) mmol/L BUN (7-17) mg/dL Creatinine (0.52-1.04) mg/dL Glucose (74-99) mg/dL POC Glucose (mg/dL) 153 H (75-99) mg/dL Calcium (8.4-10.2) mg/dL Magnesium (1.6-2.3) mg/dL Procalcitonin (0.02-0.09) ng/mL Assessment and Plan Plan: Assessment: 1. Acute kidney injury mostly prerenal secondary to hypovolemia and volume depletion. Was receiving Toradol for pain. Creatinine a little better at 1.4 today. 2. Chronic kidney disease stage IIIb with baseline creatinine in the range of 1.3 secondary to nephrosclerosis. 3. Benign hypertension. Stable. 4. Small bowel obstruction status post exploratory laparotomy with lysis of a dhesions and small bowel resection. Surgery following. 5. Hyponatremia secondary to acute kidney injury and poor solute intake. Better. 6. Anemia. Iron deficiency noted. 7. Volume overload. Plan: TPN and diet per surgery. Maintain oral Lasix. Maintain IV iron. Avoid nephrotoxins. Avoid NSAIDs. Continue to monitor renal function and urine output. DC Martin catheter and monitor serial bladder scans to make sure no retention.
[2021-07-30 11:21] LABS: Glucose,Whole Blood 144 mg/dL (75-99)
[2021-07-30] MEDS ORDERED: Acetaminophen-Codeine 300-30mg TAB PO PRN (14:16)
--- NOTE | 2021-07-30 14:16 | P.PN ---
Progress Note - Text Progress Note Date: 07/30/21 Chief Complaint: Abdominal pain History of presenting complaint: This is a 85-year-old patient of Dr. Johnson. Chronic stable medical conditions include COPD, GERD, rheumatoid arthritis, celiac disease, chronic urinary incontinence, lumbar radiculopathy , diverticulosis. Patient does use a walker. She was admitted here in January 2021 with severe bowel spasms. Patient yesterday after started having increasing abdominal pain across. Leg cramping. Along with nausea vomiting. Not able to keep anything down. [place] hot. Normally has a bowel movement every other day. Had a bowel movement yesterday. No improvement. Computed tomography scan of the ER showed air-fluid levels. Made nothing by mouth. Surgery consulted. Admitted with acute possible colitis with severe bowel spasms. Subsequent x- rays showing worsening bowel obstruction. July 21 patient underwent surgical intervention by Dr. Stauffer. Fibrotic band was causing small bowel obstruction. Patient also treated with TPN and lipids. July 21 through July 25 patient was followed by [facility] hospitalists. July 26: Patient is laying in bed bed. Tired. Some abdominal pain. Had a bowel movement. Liquid diet. No nausea vomiting. July 27: Abdominal pain. No nausea vomiting. No BM. Made nothing by mouth by surgery. Ordered chewing gum. TPN and lipids to continue. Tired. July 28: Abdominal pain. Distention. No BM. Abdominal x-ray is reviewed. Ileus. Surgery informed. Dr. Stauffer ordered Dulcolax. By late in the evening patient not had a bowel movement. Patient be short of breath. Chest x- ray ordered showed pulmonary edema possible infiltrate. Changing antibiotic to IV cefepime. IV Lasix. 80 mg every 8, 2 doses. Earlier care was discussed with the patient and at the bedside. July 29: Abdominal pain still present. No response to suppository yesterday. Breathing better with IV Lasix. On ice chips. Discussed with the patient has been. No nausea vomiting. Started on IV cefepime yesterday for pneumonia July 30: Patient up in a chair. Delirious. She thinks she is us come back from her doctor's appointment. She is at her brother's house. Dilaudid discontinued. Abdomen still distended. X-ray showing ileus. Discussed with surgery. Active Medications Acetaminophen (Acetaminophen Tab 325 Mg Tab) 650 mg PO Q4HR [facility] Hydrocodone Bitart/Acetaminophen (Hydrocodone/Apap 5-325mg 1 Each Tab) 1 each PO Q4HR PRN PRN Reason: Pain Last Admin: 07/30/21 10:35 Dose: 1 each Documented by: Albuterol/Ipratropium (Ipratropium-Albuterol 3 Ml Neb) 3 ml INHALATION RT-QID PRN PRN Reason: Shortness Of Breath Or Wheezing Benzocaine (Benzocaine [place] 1 Can) 1 spray MUCOUS MEM QID PRN; Protocol PRN Reason: Mouth Irritation Benzocaine/Menthol (Benzocaine/Menthol Lozeng 1 Each Lozenge) 1 each MUCOUS MEM Q4HR PRN PRN Reason: Sore Throat Last Admin: 07/28/21 02:33 Dose: 1 each Documented by: Enoxaparin Sodium (Enoxaparin 30 Mg/0.3 Ml Syringe) 30 mg SQ DAILY [facility] Last Admin: 07/30/21 09:00 Dose: 30 mg Documented by: Furosemide (Furosemide 40 Mg Tab) 40 mg PO DAILY [facility] Last Admin: 07/30/21 09:00 Dose: 40 mg Documented by: Fat Emulsion Intravenous 250 (ml/ IV Solution) 250 mls @ 21 mls/hr IV Q7D [facility] Last Admin: 07/27/21 08:13 Dose: 21 mls/hr Documented by: Ferric Sodium Gluconate 125 mg (/ Sodium Chloride) 110 mls @ 100 mls/hr IVPB DAILY [facility] Stop: 07/31/21 12:01 Last Admin: 07/30/21 10:34 Dose: 100 mls/hr Documented by: Cefepime HCl 1 gm/ Sodium (Chloride) 50 mls @ 12.5 mls/hr IVPB Q12HR [facility] Last Admin: 07/30/21 10:34 Dose: 12.5 mls/hr Documented by: Parenteral Vitamin Supplement 10 ml/ Zinc/Copper/Manganese/Selenium 1 ml/ Parenteral Electrolytes 20 ml/ Sodium Acetate 40 meq/ Sodium Chloride 25 meq/ Sodium Phosphate 9 mmol/ Amino Acids/Dextrose 1,064 mls @ 60 mls/hr IV .BY DURATION [facility] Parenteral Electrolytes 20 ml/Sodium Acetate 40 meq/ Sodium Chloride 25 meq/ Sodium Phosphate 9 mmol/ Amino Acids/Dextrose 1,053 mls @ 60 mls/hr IV .BY DURATION [facility] Insulin Aspart (Insulin Aspart (Novolog) 100 Unit/Ml Vial) 0 unit SQ Q6H [facility]; Protocol Last Admin: 07/30/21 13:10 Dose: Not Given Documented by: Metoclopramide HCl (Metoclopramide 5 Mg/Ml 2 Ml Vial) 10 mg IVP Q6HR [facility] Last Admin: 07/30/21 13:16 Dose: 10 mg Documented by: Naloxone HCl (Naloxone 0.4 Mg/Ml 1 Ml Vial) 0.2 mg IV Q2M PRN PRN Reason: Opioid Reversal Ondansetron HCl (Ondansetron 4 Mg/2 Ml Vial) 4 mg IVP Q8HR PRN PRN Reason: Nausea And Vomiting Last Admin: 07/26/21 00:33 Dose: 4 mg Documented by: Oxybutynin Chloride (Oxybutynin Chloride 5 Mg Tab) 5 mg PO BID [facility] Last Admin: 07/30/21 09:00 Dose: 5 mg Documented by: Pantoprazole Sodium (Pantoprazole 40 Mg/10 Ml Vial) 40 mg IVP DAILY [facility] Last Admin: 07/30/21 09:00 Dose: 40 mg Documented by: Sodium Chloride (Sodium Chloride 0.9% Flush 10 Ml Syringe) 10 ml IV Q4HR PRN PRN Reason: PICC Line Sodium Chloride (Sodium Chloride 0.9% Flush 10 Ml Syringe) 10 ml IV WEEKLY [facility] Last Admin: 07/26/21 12:12 Dose: Not Given Documented by: Sodium Chloride (Sodium Chloride 0.9% Flush 10 Ml Syringe) 20 ml IV Q4HR PRN PRN Reason: PICC Line Past medical history to include: COPD, GERD, rheumatoid arthritis, questionable stroke, pubic rami fracture, celiac disease, cerebral aneurysm and AAA repair, lumbar radiculopathy, 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 . Does use a walker to get about . Family history: Throat cancer Physical examination: VITAL SIGNS: 97.8, 87, 18, 93/52, 97% on 4 L GENERAL: Up in a chair, awake, delirious EYES: Pupils equal. Conjunctiva normal. HEENT: External appearance of nose and ears normal, oral cavity grossly normal. NG tube to suction NECK: JVD not raised; masses not palpable. HEART: First and second heart sounds are normal; no edema. LUNGS: Respiratory rate increased decreased breath sounds ABDOMEN: Soft, some distention. tender, no guarding rigidity liver spleen not palpable, no masses palpable. Bowel sounds present. PSYCH: Patient thinks she is at her brother's house. Has discomfort from her doctor's appointment. MUSCULOSKELETAL: Evidence of arthritis especially in the hands, INVESTIGATIONS, reviewed in the clinical context: July 30: White count 9.2 hemoglobin 8 platelets 584 sodium 135 BUN 46, creatinine: 1.40. Abdominal x-ray film personally reviewed by me: Ileus July 29: White count 9.2 hemoglobin 8.3 platelets 517 sodium 135 potassium 4.2 BUN 45 creatinine 1.5 bun pro-calcitonin 2.11 July 28: Sodium 132 BUN 39 creatinine 1.28. Abdominal x-ray: Dilated loops of bowel. Chest x-ray film. Pulmonary edema infiltrate July 27: White count 8.3 hemoglobin 8.6 platelets 404 potassium 4.8 BUN 40 creatinine 1.3 Sodium 133 potassium 4.3 BUN 37 creatinine 1.19 Chest x-ray film personally reviewed by me-[July 17]: Multiple air fluid levels. White count 6.2 hemoglobin 11.8 platelets 228 potassium 4.6 BUN 36 creatinine 1.74 EKG tracing personally reviewed by me-normal sinus rhythm. Rate 84 CT abdomen pelvis without contrast: Chronic diverticulosis. Multiple small bowel fluid levels. Other findings noted. Previous labs: Creatinine 2.04 on January 2021. Assessment and plan: -Acute small bowel obstruction from fibrotic band. . Received IV Zosyn. NG tube discontinued . July 21 underwent abdominal surgery with fibrotic band resected and small bowel resection reattached. Increasing abdominal pain. -Acute delirium: New diagnosis DC Dilaudid. - postop ileus: Not improving No response to Dulcolax. 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 Improved -TPN and lipids -Moderate protein calorie malnutrition Supplemental nutrition IV -Acute medical debility. PT OT -Full code IV cefepime. TPN and lipids. DC Dilaudid.. Continue supportive care. Discussed the surgery. And nurse. Total spent time about 40 minutes with over 25 minutes of discussion.
--- NOTE | 2021-07-30 14:30 | P.PN ---
Subjective Progress Note Date: 07/30/21 CHIEF COMPLAINT: Abdominal pain HISTORY OF PRESENT ILLNESS: Patient is postop day #9 status post exploratory laparotomy, lysis of adhesions and small bowel resection for small bowel obstruction with adhesions. Patient continues to complain of the same abdominal pain. She does have evidence of an ileus. She denies any nausea or vomiting. No bowel activity. Martin catheter will be discontinued today. Nephrology has placed patient on Lasix for volume overload. Fluids discontinued. She's also receiving IV iron for anemia. Patient is confused and concerned that it may be due to the narcotics. Patient seen and examined with Dr. hicks PHYSICAL EXAM: VITAL SIGNS: Reviewed. GENERAL: Well-developed in no acute distress. HEENT: No sclera icterus. Extraocular movements grossly intact. Moist buccal mucosa. Head is atraumatic, normocephalic. ABDOMEN: Distended. Tender with palpation Incision site clean dry and intact. NEUROLOGIC: Confused ASSESSMENT: 1. Small bowel obstruction with adhesions status post exploratory laparotomy, lysis of adhesions and small bowel resection 2. Abdominal pain 3. Hypokalemia and hypomagnesemia improved 4. Prolonged Postoperative ileus can be an expected finding 5. Iron deficiency anemia receiving IV iron 6. Metabolic encephalopathy PLAN: -Keep patient nothing by mouth except for ice chips and popsicles -Continue IV Reglan -Discontinue IV Dilaudid -Ordered scheduled Tylenol to help with pain. [place] is available for breakthrough pain only. Educated nursing staff to limit the amount of narcotics given -Discontinue Martin catheter -Continue TPN for nutrition support -Continue supportive care -Continue pain medication as needed -Encouraged patient to use incentive spirometer -Encouraged patient to increase activity level -GI prophylaxis Protonix and DVT prophylaxis Lovenox Physician Inspector Eyeglass note has been reviewed by physician. Signing provider agrees with the documented findings, assessment, and plan of care. Objective - Vital Signs Vital signs: Vital Signs Temp 97.8 F 07/30/21 13:51 Pulse 87 07/30/21 13:51 Resp 18 07/30/21 13:51 BP 93/52 07/30/21 13:51 Pulse Ox 97 07/30/21 13:51 Intake & Output 07/29/21 07/30/21 07/30/21 18:59 06:59 18:59 Intake Total 730 Balance 730 Weight 44 kg Intake: Intake, IV Titration 680 Amount Cefepime 2 gm In Sodium 100 Chloride 0.9% 100 ml @ 25 mls/hr IVPB Q12HR [facility] Rx #:[id number] Mvi, Adult No.4 with Vit 480 K 10 ml Trace (Conc-1Ml/ Dose) 1 ml Parenteral Electrolytes 20 ml Sodium Acetate 40 meq Sodium Chloride 2.5MEQ/ml Vial 20 meq Sodium Phosphate 9 mmol In Amino Acids 5 %/ Dextrose 20 % 1,000 ml @ 60 mls/hr IV .BY DURATION [facility] Rx#:[id number] Sodium Ferric Gluconat- 100 Sucrose 125 mg In Sodium Chloride 0.9% 100 ml @ 100 mls/hr IVPB DAILY [facility] Rx#:[id number] Oral 50 Other: Voiding Method Indwelling Catheter Indwelling Catheter Indwelling Catheter ABP, PAP, CO, CI - Last Documented Arterial Blood Pressure 154/64 - Labs CBC & Chem 7: 07/30/21 04:28 07/30/21 04:28 Labs: Abnormal Lab Results - Last 24 Hours (Table) 07/29/21 07/30/21 07/30/21 Range/Units 17:03 00:15 04:28 RBC (4.10-5.20) X 10*6/uL Hgb (12.0-15.0) g/dL Hct (37.2-46.3) % MCHC (32.0-37.0) g/dL RDW (11.5-14.5) % Plt Count (140-440) X 10*3/uL MPV (9.5-12.2) fL Sodium 135 L (137-145) mmol/L Carbon Dioxide 31 H (22-30) mmol/L BUN 46 H (7-17) mg/dL Creatinine 1.40 H (0.52-1.04) mg/dL Glucose 136 H (74-99) mg/dL POC Glucose (mg/dL) 153 H 144 H (75-99) mg/dL Calcium 8.3 L (8.4-10.2) mg/dL Magnesium 2.4 H (1.6-2.3) mg/dL 07/30/21 07/30/21 07/30/21 Range/Units 04:28 06:14 11:19 RBC 2.79 L (4.10-5.20) X 10*6/uL Hgb 8.0 L (12.0-15.0) g/dL Hct 26.1 L (37.2-46.3) % MCHC 30.7 L (32.0-37.0) g/dL RDW 14.6 H (11.5-14.5) % Plt Count 584 H (140-440) X 10*3/uL MPV 9.4 L (9.5-12.2) fL Sodium (137-145) mmol/L Carbon Dioxide (22-30) mmol/L BUN (7-17) mg/dL Creatinine (0.52-1.04) mg/dL Glucose (74-99) mg/dL POC Glucose (mg/dL) 153 H 144 H (75-99) mg/dL Calcium (8.4-10.2) mg/dL Magnesium (1.6-2.3) mg/dL
[2021-07-30] MEDS: 1: MVI, ADULT NO.4 WITH VIT K 10 ML, TRACE (CONC-1ML/DOSE) 1 ML, PARENTERAL ELECTROLYTES IV SCH ×7 (16:37)
[2021-07-30 16:38] LABS: Glucose,Whole Blood 124 mg/dL (75-99)
[2021-07-30] MEDS: ACETAMINOPHEN TAB 325 MG TAB PO SCH ×2 (17:29→21:15)
[2021-07-31 00:22] LABS: Glucose,Whole Blood 199 mg/dL (75-99)
[2021-07-31] MEDS: ACETAMINOPHEN TAB 325 MG TAB PO SCH ×3 (00:46→20:36)
[2021-07-31] MEDS: INSULIN ASPART (NovoLOG) 100 UNIT/ML VIAL SQ SCH ×5 (00:48→23:54)
[2021-07-31] MEDS: METOCLOPRAMIDE 5 MG/ML 2 ML VIAL IVP SCH ×5 (00:48→23:56)
[2021-07-31 05:57] LABS: Glucose,Whole Blood 84 mg/dL (75-99)
[2021-07-31] MEDS: 1: MVI, ADULT NO.4 WITH VIT K 10 ML, TRACE (CONC-1ML/DOSE) 1 ML, PARENTERAL ELECTROLYTES IV SCH ×7 (08:42)
[2021-07-31 08:59] LABS: African American GFR (CKD) 39.3 (60.0-200.0); Anion Gap 9.7 mmol/L (10.00-18.00); BUN/Creat Ratio 29.29 Ratio (12.00-20.00); Calcium 8.7 mg/dL (8.7-10.3); Carbon Dioxide 26.3 mmol/L (20.0-27.5); Magnesium 2.5 mg/dL (1.5-2.4); Non-African American GFR(CKD) 33.9 (60.0-200.0)
[2021-07-31] MEDS: PANTOPRAZOLE 40 MG/10 ML VIAL IVP SCH (09:38)
[2021-07-31] MEDS: SODIUM FERRIC GLUCONAT-SUCROSE 125 MG in SODIUM CHLORIDE 0.9% 100 ML IVPB SCH (09:38)
[2021-07-31] MEDS: ENOXAPARIN 30 MG/0.3 ML SYRINGE SQ SCH (09:38)
[2021-07-31] MEDS: FUROSEMIDE 40 MG TAB PO SCH (09:38)
[2021-07-31] MEDS: OXYBUTYNIN CHLORIDE 5 MG TAB PO SCH ×2 (09:38→20:37)
--- NOTE | 2021-07-31 09:51 | P.PN ---
Subjective Patient is seen in follow-up for acute kidney injury. Renal function stable. Maintained on oral Lasix. Nonoliguric. Pulled out her PICC line. Nothing by mouth. Surgery following. Hemodynamically stable. Vital signs are stable. General: Awake. No acute distress. HEENT: Head exam is unremarkable. LUNGS: Breath sounds decreased. HEART: Rate and Rhythm are regular. ABDOMEN: Soft, no tenderness. EXTREMITITES: No edema. Objective - Vital Signs Vital signs: Vital Signs Temp 98.2 F 07/31/21 07:16 Pulse 95 07/31/21 07:16 Resp 16 07/31/21 07:16 BP 100/63 07/31/21 07:16 Pulse Ox 97 07/31/21 07:16 Intake & Output 07/30/21 07/31/21 07/31/21 18:59 06:59 18:59 Output Total 2300 Balance -2300 Weight 44 kg Output: Urine 2300 Other: Voiding Method Indwelling Catheter Diaper # Voids 4 # Bowel Movements 0 ABP, PAP, CO, CI - Last Documented Arterial Blood Pressure 154/64 - Labs CBC & Chem 7: 07/30/21 04:28 07/31/21 05:05 Labs: Abnormal Lab Results - Last 24 Hours (Table) 07/30/21 07/30/21 07/30/21 Range/Units 04:28 11:19 16:36 RBC 2.79 L (4.10-5.20) X 10*6/uL Hgb 8.0 L (12.0-15.0) g/dL Hct 26.1 L (37.2-46.3) % MCHC 30.7 L (32.0-37.0) g/dL RDW 14.6 H (11.5-14.5) % Plt Count 584 H (140-440) X 10*3/uL MPV 9.4 L (9.5-12.2) fL Anion Gap (10.00-18.00) mmol/L BUN (9.0-27.0) mg/dL Est GFR (CKD-EPI)AfAm (60.0-200.0) Est GFR (CKD-EPI)NonAf (60.0-200.0) BUN/Creatinine Ratio (12.00-20.00) Ratio POC Glucose (mg/dL) 144 H 124 H (75-99) mg/dL Magnesium (1.5-2.4) mg/dL 07/31/21 07/31/21 Range/Units 00:18 05:05 RBC (4.10-5.20) X 10*6/uL Hgb (12.0-15.0) g/dL Hct (37.2-46.3) % MCHC (32.0-37.0) g/dL RDW (11.5-14.5) % Plt Count (140-440) X 10*3/uL MPV (9.5-12.2) fL Anion Gap 9.70 L (10.00-18.00) mmol/L BUN 41.0 H (9.0-27.0) mg/dL Est GFR (CKD-EPI)AfAm 39.3 L (60.0-200.0) Est GFR (CKD-EPI)NonAf 33.9 L (60.0-200.0) BUN/Creatinine Ratio 29.29 H (12.00-20.00) Ratio POC Glucose (mg/dL) 199 H (75-99) mg/dL Magnesium 2.5 H (1.5-2.4) mg/dL Assessment and Plan Plan: Assessment: 1. Acute kidney injury mostly prerenal secondary to hypovolemia and volume depletion. Was receiving Toradol for pain. Renal function stable. 2. Chronic kidney disease stage IIIb with baseline creatinine in the range of 1.3 secondary to nephrosclerosis. 3. Benign hypertension. Blood pressure on the lower side. 4. Small bowel obstruction status post exploratory laparotomy with lysis of adhesions and small bowel resection. Surgery following. 5. Hyponatremia secondary to acute kidney injury and poor solute intake. Better. 6. Anemia. Iron deficiency noted. 7. Volume overload. Improved with diuresis. Plan: TPN and diet per surgery. Maintain oral Lasix. Maintain IV iron. Avoid nephrotoxins. Avoid NSAIDs. Continue to monitor renal function and urine output.
[2021-07-31] MEDS: CEFEPIME 1 GM in SODIUM CHLORIDE 0.9% 50 ML IVPB SCH ×2 (11:17→20:37)
[2021-07-31 11:38] LABS: Glucose,Whole Blood 103 mg/dL (75-99)
[2021-07-31] MEDS ORDERED: ACETAMINOPHEN IV (For NPO) 1,000 MG in EMPTY BAG 1 BAG IVPB SCH (12:00)
--- NOTE | 2021-07-31 13:32 | P.PN ---
Subjective Progress Note Date: 07/31/21 CHIEF COMPLAINT: Small bowel obstruction HISTORY OF PRESENT ILLNESS: The patient is a 85-year-old status post small bowel resection for small bowel obstruction. Son at bedside. Nurse reports patient has been NPO for 2 weeks. Patient has been confused from narcotic pain medications. Today, she and her son reports she is more alert and less confused. She reports decreased abdominal pain. She is tolerating ice chips and popsicles. Patient pulled PICC line last night. Currently has intravenous fluids, but no TPN. Per nurse, patient is on fluid restriction for IVFs. She is yet to ambulate today. ROS: No reports of nausea and vomiting. No bowel movements. No fevers or chills. No new chest pain. No productive sputum PHYSICAL EXAM: VITAL SIGNS: Reviewed CONSTITUTIONAL: Well developed and in no acute distress. EYES: Conjuctivae without sclera icterus. Extraocular movements grossly intact. HEAD, EARS, NOSE, THROAT: Moist buccal mucosa. Head is atraumatic, normocephalic. Hears conversational speech. No nasal drainage. RESPIRATORY: Non-labored respirations and equal bilateral excursions. CARDIOVASCULAR: Palpable 2+ radial pulses. ABDOMEN: Dressing midline intact. No cellulitis. Tender to light touch at right upper quadrant. Mild distention. MUSCULOSKELETAL: No gross deformity of the lower extremities noted. No clubbing. No cyanosis. SKIN: Good skin turgor. Well perfused. NEUROLOGIC: Cranial nerves II through XII grossly intact. No focal or lateralizing signs. PSYCH: Alert and oriented to person. CLINICAL LABS: Reviewed. Potassium 4.0. Creatinine 1.4. STUDIES: Abdominal xray reviewed from 07/30 demonstrating diffuse bowel gas pattern. No bowel obstruction. This is my independent interpretation. ASSESSMENT: 1. Small bowel obstruction PLAN: 1. Adjust TPN to PPN for temporary IV nutrition with dietitian consult 2. Ambulation encouraged to help with ileus 3. She reports new RUQ pain. Although cholecystectomy, will obtain RUQ ultrasound. 4. Abdominal Xray for new right upper quadrant abdominal pain. 5. Chest xray for right lower rib/right upper quadrant abdominal pain 6. Continue non-narcotic pain management 7. Will adjust diet pending results of resolved ileus per imaging. 8. Alternatives of chewing gum described for ileus 9. Care plan reviewed, discussed and agreed with patient and son at bedside. Nurse present during discussion. 10. PICC line ordered for Monday. Objective - Vital Signs Vital signs: Vital Signs Temp 98.2 F 07/31/21 07:16 Pulse 95 07/31/21 07:16 Resp 16 07/31/21 07:16 BP 100/63 07/31/21 07:16 Pulse Ox 97 07/31/21 07:16 Intake & Output 07/30/21 07/31/21 07/31/21 18:59 06:59 18:59 Output Total 2300 Balance -2300 Weight 44 kg Output: Urine 2300 Other: Voiding Method Indwelling Catheter Diaper # Voids 4 # Bowel Movements 0 ABP, PAP, CO, CI - Last Documented Arterial Blood Pressure 154/64 - Labs CBC & Chem 7: 07/30/21 04:28 07/31/21 05:05 Labs: Abnormal Lab Results - Last 24 Hours (Table) 07/30/21 07/31/21 07/31/21 Range/Units 16:36 00:18 05:05 Anion Gap 9.70 L (10.00-18.00) mmol/L BUN 41.0 H (9.0-27.0) mg/dL Est GFR (CKD-EPI)AfAm 39.3 L (60.0-200.0) Est GFR (CKD-EPI)NonAf 33.9 L (60.0-200.0) BUN/Creatinine Ratio 29.29 H (12.00-20.00) Ratio POC Glucose (mg/dL) 124 H 199 H (75-99) mg/dL Magnesium 2.5 H (1.5-2.4) mg/dL 07/31/21 Range/Units 11:36 Anion Gap (10.00-18.00) mmol/L BUN (9.0-27.0) mg/dL Est GFR (CKD-EPI)AfAm (60.0-200.0) Est GFR (CKD-EPI)NonAf (60.0-200.0) BUN/Creatinine Ratio (12.00-20.00) Ratio POC Glucose (mg/dL) 103 H (75-99) mg/dL Magnesium (1.5-2.4) mg/dL
--- NOTE | 2021-07-31 14:22 | XR ---
EXAMINATION TYPE: XR chest 1V portable DATE OF EXAM: 07/31/2021 COMPARISON: 07/28/2021 INDICATION: Right upper quadrant pain TECHNIQUE: Single frontal view of the chest is obtained. FINDINGS: The heart size is normal. The pulmonary vasculature is prominent. Diffuse increased lung markings are present. Correlate for pulmonary edema. There is chronic elevatio n of the right diaphragm. IMPRESSION: 1. Clinical correlation recommended for volume overload
--- NOTE | 2021-07-31 14:23 | XR ---
EXAMINATION TYPE: XR abdomen 2V DATE OF EXAM: 07/31/2021 COMPARISON: 07/30/2021 HISTORY: Right upper quadrant pain TECHNIQUE: Abdomen is examined in the upright and supine views. FINDINGS: Surgical skin ruth are present. Colonic bowel gas is evident. No free air is evident. No differential air-fluid levels are present. No mass effect is evident. Left hip pins are present. IMPRESSION: 1. Abundant bowel gas. Small bowel gas appears to be improving. Findings may be resolving ileus. Con tinued follow-up is recommended.
--- NOTE | 2021-07-31 15:00 | US ---
EXAMINATION TYPE: US gallbladder DATE OF EXAM: 07/31/2021 COMPARISON: CT 07/20/2021 CLINICAL HISTORY: Right upper quadrant abdominal pain. EXAM MEASUREMENTS: Liver Length: 12.7 cm Gallbladder Wall: not thickened CBD: 0.5 cm Right Kidney: 7.9 x 3.9 x 4.4 cm Technically difficult exam due to bandage covering entire mid abdomen and patient unwilling to coope rate for exam. Pancreas: Obscured by bowel gas Liver: limited views appear wnl. Gallbladder: limited views do not demonstrate any stones or thickened wall. Evidence for sonographic Reid's sign: No CBD: wnl Right Kidney: No hydronephrosis or masses seen There is small amount of fluid around liver. Peristalsing midline bowel noted. Incidental note is mad e of small right pleural effusion IMPRESSION: Small right pleural effusion and small amount of ascites
--- NOTE | 2021-07-31 16:46 | P.PN ---
Progress Note - Text Progress Note Date: 07/31/21 Chief Complaint: Abdominal pain History of presenting complaint: This is a 85-year-old patient of Dr. Johnson. Chronic stable medical conditions include COPD, GERD, rheumatoid arthritis, celiac disease, chronic urinary incontinence, lumbar radiculopathy , diverticulosis. Patient does use a walker. She was admitted here in January 2021 with severe bowel spasms. Patient yesterday after started having increasing abdominal pain across. Leg cramping. Along with nausea vomiting. Not able to keep anything down. [place] hot. Normally has a bowel movement every other day. Had a bowel movement yesterday. No improvement. Computed tomography scan of the ER showed air-fluid levels. Made nothing by mouth. Surgery consulted. Admitted with acute possible colitis with severe bowel spasms. Subsequent x- rays showing worsening bowel obstruction. July 21 patient underwent surgical intervention by Dr. Stauffer. Fibrotic band was causing small bowel obstruction. Patient also treated with TPN and lipids. July 21 through July 25 patient was followed by [facility] hospitalists. July 26: Patient is laying in bed bed. Tired. Some abdominal pain. Had a bowel movement. Liquid diet. No nausea vomiting. July 27: Abdominal pain. No nausea vomiting. No BM. Made nothing by mouth by surgery. Ordered chewing gum. TPN and lipids to continue. Tired. July 28: Abdominal pain. Distention. No BM. Abdominal x-ray is reviewed. Ileus. Surgery informed. Dr. Stauffer ordered Dulcolax. By late in the evening patient not had a bowel movement. Patient be short of breath. Chest x- ray ordered showed pulmonary edema possible infiltrate. Changing antibiotic to IV cefepime. IV Lasix. 80 mg every 8, 2 doses. Earlier care was discussed with the patient and at the bedside. July 29: Abdominal pain still present. No response to suppository yesterday. Breathing better with IV Lasix. On ice chips. Discussed with the patient has been. No nausea vomiting. Started on IV cefepime yesterday for pneumonia July 30: Patient up in a chair. Delirious. She thinks she is us come back from her doctor's appointment. She is at her brother's house. Dilaudid discontinued. Abdomen still distended. X-ray showing ileus. Discussed with surgery. July 31: No flatus. Some decrease in abdominal pain. TPN lipids. Answering questions. Started on clear liquid diet. Active Medications Acetaminophen/Codeine Phosphate (Acetaminophen-Codeine 300-30mg Tab) 1 each PO Q6HR PRN PRN Reason: Pain Hydrocodone Bitart/Acetaminophen (Hydrocodone/Apap 5-325mg 1 Each Tab) 1 each PO Q4HR PRN PRN Reason: Pain Last Admin: 07/30/21 10:35 Dose: 1 each Documented by: Albuterol/Ipratropium (Ipratropium-Albuterol 3 Ml Neb) 3 ml INHALATION RT-QID PRN PRN Reason: Shortness Of Breath Or Wheezing Benzocaine (Benzocaine [place] 1 Can) 1 spray MUCOUS MEM QID PRN; Protocol PRN Reason: Mouth Irritation Benzocaine/Menthol (Benzocaine/Menthol Lozeng 1 Each Lozenge) 1 each MUCOUS MEM Q4HR PRN PRN Reason: Sore Throat Last Admin: 07/28/21 02:33 Dose: 1 each Documented by: Enoxaparin Sodium (Enoxaparin 30 Mg/0.3 Ml Syringe) 30 mg SQ DAILY [facility] Last Admin: 07/31/21 09:38 Dose: 30 mg Documented by: Furosemide (Furosemide 40 Mg Tab) 40 mg PO DAILY [facility] Last Admin: 07/31/21 09:38 Dose: 40 mg Documented by: Fat Emulsion Intravenous 250 (ml/ IV Solution) 250 mls @ 21 mls/hr IV Q7D [facility] Last Admin: 07/27/21 08:13 Dose: 21 mls/hr Documented by: Cefepime HCl 1 gm/ Sodium (Chloride) 50 mls @ 12.5 mls/hr IVPB Q12HR [facility] Last Admin: 07/31/21 11:17 Dose: 12.5 mls/hr Documented by: Parenteral Vitamin Supplement 10 ml/ Zinc/Copper/Manganese/Selenium 1 ml/ Parenteral Electrolytes 20 ml/ Sodium Acetate 40 meq/ Sodium Chloride 25 meq/ Sodium Phosphate 9 mmol/ Amino Acids/Dextrose 1,064 mls @ 60 mls/hr IV .BY DURATION [facility] Parenteral Electrolytes 20 ml/Sodium Acetate 40 meq/ Sodium Chloride 25 meq/ Sodium Phosphate 9 mmol/ Amino Acids/Dextrose 1,053 mls @ 60 mls/hr IV .BY DURATION [facility] Last Admin: 07/31/21 08:42 Dose: Not Given Documented by: Acetaminophen 650 mg/ IV (Solution) 65 mls @ 260 mls/hr IVPB Q6HR [facility] Stop: 08/01/21 06:14 Insulin Aspart (Insulin Aspart (Novolog) 100 Unit/Ml Vial) 0 unit SQ Q6H [facility]; Protocol Last Admin: 07/31/21 13:05 Dose: Not Given Documented by: Metoclopramide HCl (Metoclopramide 5 Mg/Ml 2 Ml Vial) 10 mg IVP Q6HR [facility] Last Admin: 07/31/21 13:09 Dose: 10 mg Documented by: Naloxone HCl (Naloxone 0.4 Mg/Ml 1 Ml Vial) 0.2 mg IV Q2M PRN PRN Reason: Opioid Reversal Ondansetron HCl (Ondansetron 4 Mg/2 Ml Vial) 4 mg IVP Q8HR PRN PRN Reason: Nausea And Vomiting Last Admin: 07/26/21 00:33 Dose: 4 mg Documented by: Oxybutynin Chloride (Oxybutynin Chloride 5 Mg Tab) 5 mg PO BID [facility] Last Admin: 07/31/21 09:38 Dose: Not Given Documented by: Pantoprazole Sodium (Pantoprazole 40 Mg/10 Ml Vial) 40 mg IVP DAILY [facility] Last Admin: 07/31/21 09:38 Dose: 40 mg Documented by: Sodium Chloride (Sodium Chloride 0.9% Flush 10 Ml Syringe) 10 ml IV Q4HR PRN PRN Reason: PICC Line Sodium Chloride (Sodium Chloride 0.9% Flush 10 Ml Syringe) 10 ml IV WEEKLY [facility] Last Admin: 07/26/21 12:12 Dose: Not Given Documented by: Sodium Chloride (Sodium Chloride 0.9% Flush 10 Ml Syringe) 20 ml IV Q4HR PRN PRN Reason: PICC Line Past medical history to include: COPD, GERD, rheumatoid arthritis, questionable stroke, pubic rami fracture, celiac disease, cerebral aneurysm and AAA repair, lumbar radiculopathy, 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 . Does use a walker to get about . Family history: Throat cancer Physical examination: VITAL SIGNS: 98, 86, 16, 109/73, 96% on 4 L GENERAL: Laying in bed, tired EYES: Pupils equal. Conjunctiva normal. HEENT: External appearance of nose and ears normal, oral cavity grossly normal. NG tube to suction NECK: JVD not raised; masses not palpable. HEART: First and second heart sounds are normal; no edema. LUNGS: Respiratory rate increased decreased breath sounds ABDOMEN: Soft, some distention. tender, no guarding rigidity liver spleen not palpable, no masses palpable. Bowel sounds present. PSYCH: Patient thinks she is at her brother's house. Has discomfort from her doctor's appointment. MUSCULOSKELETAL: Evidence of arthritis especially in the hands, INVESTIGATIONS, reviewed in the clinical context: July 31: BUN 41 creatinine 1.4 July 30: White count 9.2 hemoglobin 8 platelets 584 sodium 135 BUN 46, creatinine: 1.40. Abdominal x-ray film personally reviewed by me: Ileus July 29: White count 9.2 hemoglobin 8.3 platelets 517 sodium 135 potassium 4.2 BUN 45 creatinine 1.5 bun pro-calcitonin 2.11 July 28: Sodium 132 BUN 39 creatinine 1.28. Abdominal x-ray: Dilated loops of bowel. Chest x-ray film. Pulmonary edema infiltrate July 27: White count 8.3 hemoglobin 8.6 platelets 404 potassium 4.8 BUN 40 creatinine 1.3 Sodium 133 potassium 4.3 BUN 37 creatinine 1.19 Chest x-ray film personally reviewed by me-[July 17]: Multiple air fluid levels. White count 6.2 hemoglobin 11.8 platelets 228 potassium 4.6 BUN 36 creatinine 1.74 EKG tracing personally reviewed by me-normal sinus rhythm. Rate 84 CT abdomen pelvis without contrast: Chronic diverticulosis. Multiple small bowel fluid levels. Other findings noted. Previous labs: Creatinine 2.04 on January 2021. Assessment and plan: -Acute small bowel obstruction from fibrotic band. . Received IV Zosyn. NG tube discontinued . July 21 underwent abdominal surgery with fibrotic band resected and small bowel resection reattached. Increasing abdominal pain. -Acute delirium: Slight improvement DC Dilaudid. - postop ileus: Slow improving No response to Dulcolax. 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 Improved -TPN and lipids -Moderate protein calorie malnutrition Supplemental nutrition IV -Acute medical debility. PT OT -Full code IV cefepime. TPN and lipids. Started on clear liquid diet by surgery. Other medications to continue.
[2021-07-31 17:02] LABS: Glucose,Whole Blood 92 mg/dL (75-99)
[2021-07-31] MEDS: ACETAMINOPHEN IV (For NPO) 650 MG in EMPTY BAG 1 BAG IVPB SCH (17:56)
[2021-07-31 23:55] LABS: Glucose,Whole Blood 93 mg/dL (75-99)
[2021-08-01] MEDS: ACETAMINOPHEN IV (For NPO) 650 MG in EMPTY BAG 1 BAG IVPB SCH ×2 (00:21→08:03)
[2021-08-01] MEDS: 1: MVI, ADULT NO.4 WITH VIT K 10 ML, TRACE (CONC-1ML/DOSE) 1 ML, PARENTERAL ELECTROLYTES IV SCH ×7 (02:11)
[2021-08-01 06:25] LABS: Glucose,Whole Blood 125 mg/dL (75-99)
[2021-08-01] MEDS: METOCLOPRAMIDE 5 MG/ML 2 ML VIAL IVP SCH ×3 (06:33→18:19)
[2021-08-01] MEDS: INSULIN ASPART (NovoLOG) 100 UNIT/ML VIAL SQ SCH ×4 (06:33→23:48)
[2021-08-01 07:03] LABS: ALT 37 U/L (4-34); AST 43 U/L (14-36); African American GFR (CKD) 36 (>60 ml/min/1.73 sqM); Albumin 2.8 g/dL (3.5-5.0); Albumin/Globulin Ratio 0.7; Alkaline Phosphatase 213 U/L (38-126); Anion Gap 9 mmol/L; Blood Urea Nitrogen 40 mg/dL (7-17); Calcium 8.6 mg/dL (8.4-10.2); Carbon Dioxide 24 mmol/L (22-30); Chloride 103 mmol/L (98-107); Globulin 4.1 g/dL; Glucose 80 mg/dL (74-99); Magnesium 2.5 mg/dL (1.6-2.3); Non-African American GFR(CKD) 31 (>60 ml/min/1.73 sqM); Phosphorus 4.2 mg/dL (2.5-4.5); Potassium 4.5 mmol/L (3.5-5.1); Sodium 136 mmol/L (137-145); Total Bilirubin 0.7 mg/dL (0.2-1.3); Total Protein 6.9 g/dL (6.3-8.2)
[2021-08-01] MEDS: ENOXAPARIN 30 MG/0.3 ML SYRINGE SQ SCH (08:03)
[2021-08-01] MEDS: FUROSEMIDE 40 MG TAB PO SCH (08:04)
[2021-08-01] MEDS: OXYBUTYNIN CHLORIDE 5 MG TAB PO SCH ×2 (08:04→19:59)
[2021-08-01] MEDS: PANTOPRAZOLE 40 MG/10 ML VIAL IVP SCH (08:04)
[2021-08-01] MEDS: CEFEPIME 1 GM in SODIUM CHLORIDE 0.9% 50 ML IVPB SCH ×2 (08:09→20:50)
--- NOTE | 2021-08-01 11:29 | P.PN ---
Progress Note - Text Progress Note Date: 08/01/21 Chief Complaint: Abdominal pain History of presenting complaint: This is a 85-year-old patient of Dr. Johnson. Chronic stable medical conditions include COPD, GERD, rheumatoid arthritis, celiac disease, chronic urinary incontinence, lumbar radiculopathy , diverticulosis. Patient does use a walker. She was admitted here in January 2021 with severe bowel spasms. Patient yesterday after started having increasing abdominal pain across. Leg cramping. Along with nausea vomiting. Not able to keep anything down. [place] hot. Normally has a bowel movement every other day. Had a bowel movement yesterday. No improvement. Computed tomography scan of the ER showed air-fluid levels. Made nothing by mouth. Surgery consulted. Admitted with acute possible colitis with severe bowel spasms. Subsequent x- rays showing worsening bowel obstruction. July 21 patient underwent surgical intervention by Dr. Stauffer. Fibrotic band was causing small bowel obstruction. Patient also treated with TPN and lipids. July 21 through July 25 patient was followed by [facility] hospitalists. July 26: Patient is laying in bed bed. Tired. Some abdominal pain. Had a bowel movement. Liquid diet. No nausea vomiting. July 27: Abdominal pain. No nausea vomiting. No BM. Made nothing by mouth by surgery. Ordered chewing gum. TPN and lipids to continue. Tired. July 28: Abdominal pain. Distention. No BM. Abdominal x-ray is reviewed. Ileus. Surgery informed. Dr. Stauffer ordered Dulcolax. By late in the evening patient not had a bowel movement. Patient be short of breath. Chest x- ray ordered showed pulmonary edema possible infiltrate. Changing antibiotic to IV cefepime. IV Lasix. 80 mg every 8, 2 doses. Earlier care was discussed with the patient and at the bedside. July 29: Abdominal pain still present. No response to suppository yesterday. Breathing better with IV Lasix. On ice chips. Discussed with the patient has been. No nausea vomiting. Started on IV cefepime yesterday for pneumonia July 30: Patient up in a chair. Delirious. She thinks she is us come back from her doctor's appointment. She is at her brother's house. Dilaudid discontinued. Abdomen still distended. X-ray showing ileus. Discussed with surgery. July 31: No flatus. Some decrease in abdominal pain. TPN lipids. Answering questions. Started on clear liquid diet. August 01: Patient has been more awake since narcotics or be discontinued. Tired. Last night PICC line accidentally got pulled out. On his been present for a new one. Tolerating clear liquid. Some flatus. No BM. Active Medications Acetaminophen/Codeine Phosphate (Acetaminophen-Codeine 300-30mg Tab) 1 each PO Q6HR PRN PRN Reason: Pain Hydrocodone Bitart/Acetaminophen (Hydrocodone/Apap 5-325mg 1 Each Tab) 1 each PO Q4HR PRN PRN Reason: Pain Last Admin: 07/30/21 10:35 Dose: 1 each Documented by: Albuterol/Ipratropium (Ipratropium-Albuterol 3 Ml Neb) 3 ml INHALATION RT-QID PRN PRN Reason: Shortness Of Breath Or Wheezing Benzocaine (Benzocaine [place] 1 Can) 1 spray MUCOUS MEM QID PRN; Protocol PRN Reason: Mouth Irritation Benzocaine/Menthol (Benzocaine/Menthol Lozeng 1 Each Lozenge) 1 each MUCOUS MEM Q4HR PRN PRN Reason: Sore Throat Last Admin: 07/28/21 02:33 Dose: 1 each Documented by: Enoxaparin Sodium (Enoxaparin 30 Mg/0.3 Ml Syringe) 30 mg SQ DAILY [facility] Last Admin: 08/01/21 08:03 Dose: 30 mg Documented by: Furosemide (Furosemide 40 Mg Tab) 40 mg PO DAILY [facility] Last Admin: 08/01/21 08:04 Dose: 40 mg Documented by: Cefepime HCl 1 gm/ Sodium (Chloride) 50 mls @ 12.5 mls/hr IVPB Q12HR [facility] Last Admin: 08/01/21 08:09 Dose: 12.5 mls/hr Documented by: Insulin Aspart (Insulin Aspart (Novolog) 100 Unit/Ml Vial) 0 unit SQ Q6H [facility]; Protocol Last Admin: 08/01/21 06:33 Dose: Not Given Documented by: Metoclopramide HCl (Metoclopramide 5 Mg/Ml 2 Ml Vial) 10 mg IVP Q6HR [facility] Last Admin: 08/01/21 06:33 Dose: 10 mg Documented by: Naloxone HCl (Naloxone 0.4 Mg/Ml 1 Ml Vial) 0.2 mg IV Q2M PRN PRN Reason: Opioid Reversal Ondansetron HCl (Ondansetron 4 Mg/2 Ml Vial) 4 mg IVP Q8HR PRN PRN Reason: Nausea And Vomiting Last Admin: 07/26/21 00:33 Dose: 4 mg Documented by: Oxybutynin Chloride (Oxybutynin Chloride 5 Mg Tab) 5 mg PO BID [facility] Last Admin: 08/01/21 08:04 Dose: 5 mg Documented by: Pantoprazole Sodium (Pantoprazole 40 Mg/10 Ml Vial) 40 mg IVP DAILY [facility] Last Admin: 08/01/21 08:04 Dose: 40 mg Documented by: Sodium Chloride (Sodium Chloride 0.9% Flush 10 Ml Syringe) 10 ml IV Q4HR PRN PRN Reason: PICC Line Sodium Chloride (Sodium Chloride 0.9% Flush 10 Ml Syringe) 10 ml IV WEEKLY [facility] Last Admin: 07/26/21 12:12 Dose: Not Given Documented by: Sodium Chloride (Sodium Chloride 0.9% Flush 10 Ml Syringe) 20 ml IV Q4HR PRN PRN Reason: PICC Line Past medical history to include: COPD, GERD, rheumatoid arthritis, questionable stroke, pubic rami fracture, celiac disease, cerebral aneurysm and AAA repair, lumbar radiculopathy, 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 . Does use a walker to get about . Family history: Throat cancer Physical examination: VITAL SIGNS: 98, 84, 16, 130/66, 94% on 4 L GENERAL: Reclining in bed, tired EYES: Pupils equal. Conjunctiva normal. HEENT: External appearance of nose and ears normal, oral cavity grossly normal. NG tube to suction NECK: JVD not raised; masses not palpable. HEART: First and second heart sounds are normal; no edema. LUNGS: Respiratory rate increased decreased breath sounds ABDOMEN: Soft, some distention. tender, no guarding rigidity liver spleen not palpable, no masses palpable. Bowel sounds present. PSYCH: Answering simple questions MUSCULOSKELETAL: Evidence of arthritis especially in the hands, INVESTIGATIONS, reviewed in the clinical context: August 01: Sodium 136 potassium 4.5 creatinine 1.5 to July 31: BUN 41 creatinine 1.4 July 30: White count 9.2 hemoglobin 8 platelets 584 sodium 135 BUN 46, creatinine: 1.40. Abdominal x-ray film personally reviewed by me: Ileus July 29: White count 9.2 hemoglobin 8.3 platelets 517 sodium 135 potassium 4.2 BUN 45 creatinine 1.5 bun pro-calcitonin 2.11 July 28: Sodium 132 BUN 39 creatinine 1.28. Abdominal x-ray: Dilated loops of bowel. Chest x-ray film. Pulmonary edema infiltrate July 27: White count 8.3 hemoglobin 8.6 platelets 404 potassium 4.8 BUN 40 creatinine 1.3 Sodium 133 potassium 4.3 BUN 37 creatinine 1.19 Chest x-ray film personally reviewed by me-[July 17]: Multiple air fluid levels. White count 6.2 hemoglobin 11.8 platelets 228 potassium 4.6 BUN 36 creatinine 1.74 EKG tracing personally reviewed by me-normal sinus rhythm. Rate 84 CT abdomen pelvis without contrast: Chronic diverticulosis. Multiple small bowel fluid levels. Other findings noted. Previous labs: Creatinine 2.04 on January 2021. Assessment and plan: -Acute small bowel obstruction from fibrotic band. . Received IV Zosyn. NG tube discontinued . July 21 underwent abdominal surgery with fibrotic band resected and small bowel resection reattached. -Acute delirium: Some improvement DC Dilaudid. - postop ileus: Slow improving No response to Dulcolax. 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 Improved -TPN and lipids -Moderate protein calorie malnutrition Supplemental nutrition IV -Acute medical debility. PT OT -Full code IV cefepime. TPN and lipids-PICC line accidentally pulled out. Request for new one placed.. Clear liquid diet. Follow with surgery
[2021-08-01 11:54] LABS: Glucose,Whole Blood 104 mg/dL (75-99)
--- NOTE | 2021-08-01 12:22 | P.PN ---
Subjective Patient is seen in follow-up for acute kidney injury. Renal function slightly worse today. Maintained on oral Lasix. Martin catheter removed. Has been voiding. Tolerating clear diet. Surgery following. Hemodynamically stable. Family present at bedside. Vital signs are stable. General: Awake. No acute distress. HEENT: Head exam is unremarkable. LUNGS: Breath sounds decreased. HEART: Rate and Rhythm are regular. ABDOMEN: Soft, no tenderness. EXTREMITITES: No edema. Objective - Vital Signs Vital signs: Vital Signs Temp 98.0 F 08/01/21 08:00 Pulse 84 08/01/21 08:00 Resp 16 08/01/21 08:00 BP 113/66 08/01/21 08:00 Pulse Ox 94 L 08/01/21 08:00 Intake & Output 07/31/21 08/01/21 08/01/21 18:59 06:59 18:59 Intake Total 1080 610 Output Total 250 Balance 1080 360 Weight 45.5 kg Intake: Intake, IV Titration 460 Amount ACETAMINOPHEN IV (For NPO 260 ) 650 mg In Empty Bag 1 bag @ 260 mls/hr IVPB Q6HR [facility] Rx#:[id number] Cefepime 1 gm In Sodium 200 Chloride 0.9% 50 ml @ 12. 5 mls/hr IVPB Q12HR [facility] Rx#:[id number] Oral 1080 150 Output: Urine 250 Other: Voiding Method Diaper # Voids 3 2 ABP, PAP, CO, CI - Last Documented Arterial Blood Pressure 154/64 - Labs CBC & Chem 7: 07/30/21 04:28 08/01/21 06:03 Labs: Abnormal Lab Results - Last 24 Hours (Table) 08/01/21 08/01/21 08/01/21 Range/Units 06:03 06:21 11:52 Sodium 136 L (137-145) mmol/L BUN 40 H (7-17) mg/dL Creatinine 1.52 H (0.52-1.04) mg/dL POC Glucose (mg/dL) 125 H 104 H (75-99) mg/dL Magnesium 2.5 H (1.6-2.3) mg/dL AST 43 H (14-36) U/L ALT 37 H (4-34) U/L Alkaline Phosphatase 213 H (38-126) U/L Albumin 2.8 L (3.5-5.0) g/dL Assessment and Plan Plan: Assessment: 1. Acute kidney injury mostly prerenal secondary to hypovolemia and volume depletion. Was receiving Toradol for pain. Renal function slightly worse from diuresis. Creatinine 1.52 today. 2. Chronic kidney disease stage IIIb with baseline creatinine in the range of 1.3 secondary to nephrosclerosis. 3. Benign hypertension. Stable. 4. Small bowel obstruction status post exploratory laparotomy with lysis of adhesions and small bowel resection. Surgery following. 5. Hyponatremia secondary to acute kidney injury and poor solute intake. Better. 6. Anemia. Iron deficiency noted. Status post IV iron. 7. Volume overload. Improved with diuresis. Plan: Diet per surgery. Maintain oral Lasix. Avoid nephrotoxins. Avoid NSAIDs. Continue to monitor renal function and urine output.
[2021-08-01] MEDS ORDERED: ACETAMINOPHEN TAB 325 MG TAB PO SCH (12:30)
[2021-08-01] MEDS: ONDANSETRON 4 MG/2 ML VIAL IVP PRN (12:48)
--- NOTE | 2021-08-01 13:28 | P.PN ---
Subjective Progress Note Date: 08/01/21 CHIEF COMPLAINT: Small bowel obstruction HISTORY OF PRESENT ILLNESS: The patient is a 85-year-old status post small bowel resection for small bowel obstruction. at bedside. Patient much more co nfused today. notes, "they gave her a pill for pain and now she is not with it." He reports she was more alert yesterday. She exclaims, "my girl is ?!" She reports more abdominal pain today. She was on trial of clear liquid diet as PICC line was pulled by her. ROS: No reports of nausea and vomiting. No bowel movements. No fevers or chills. No new chest pain. No productive sputum. Exhibiting more signs of delirium. PHYSICAL EXAM: VITAL SIGNS: Reviewed CONSTITUTIONAL: Well developed and in no acute distress. EYES: Conjuctivae without sclera icterus. Extraocular movements grossly intact. HEAD, EARS, NOSE, THROAT: Moist buccal mucosa. Head is atraumatic, normocephalic. Hears conversational speech. No nasal drainage. RESPIRATORY: Non-labored respirations and equal bilateral excursions. CARDIOVASCULAR: Palpable 2+ radial pulses. ABDOMEN: Dressing midline intact. Tender to light palpation right upper, left upper and lower abdomen. MUSCULOSKELETAL: No gross deformity of the lower extremities noted. No clubbing. No cyanosis. SKIN: Good skin turgor. Well perfused. NEUROLOGIC: Cranial nerves II through XII grossly intact. No focal or lateralizing signs. PSYCH: Alert to person. CLINICAL LABS: Reviewed. Creatinine 1.4 up to 1.52. LFTs elevated compared to admission. STUDIES: AXR image reviewed without bowel obstruction. Report demonstrated resolving ileus. Chest xray image reviewed and report reviewed with mild pulmonary congestion. Abdominal ultrasound independently reviewed confirms presence of gallbladder. CT of abdomen and pelvis reviewed independently with presence of gallbladder. ASSESSMENT: 1. Small bowel obstruction 2. Ileus 3. Elevated liver enzymes, new 4. Right upper quadrant abdominal pain 5. Delirium PLAN: 1. She has increased abdominal pain with elevated LFTs. Recommend HIDA scan for acalculous cholecystitis. 2. Decrease diet to ice chips and popsicles due to increasing abdominal pain. 3. Medications reviewed with Osteen present--risk for increased confusion. Toradol and NSAIDS contraindicated per renal function and photogrammetric tech. 4. Patient is on schedule Tylenol 650 mg oral. Due to increase abdominal pain, will switch to IV tylenol. Objective - Vital Signs Vital signs: Vital Signs Temp 98.0 F 08/01/21 08:00 Pulse 84 08/01/21 08:00 Resp 16 08/01/21 08:00 BP 113/66 08/01/21 08:00 Pulse Ox 94 L 08/01/21 08:00 Intake & Output 07/31/21 08/01/21 08/01/21 18:59 06:59 18:59 Intake Total 1080 610 Output Total 250 Balance 1080 360 Weight 45.5 kg Intake: Intake, IV Titration 460 Amount ACETAMINOPHEN IV (For NPO 260 ) 650 mg In Empty Bag 1 bag @ 260 mls/hr IVPB Q6HR [facility] Rx#:[id number] Cefepime 1 gm In Sodium 200 Chloride 0.9% 50 ml @ 12. 5 mls/hr IVPB Q12HR [facility] Rx#:[id number] Oral 1080 150 Output: Urine 250 Other: Voiding Method Diaper # Voids 3 2 ABP, PAP, CO, CI - Last Documented Arterial Blood Pressure 154/64 - Labs CBC & Chem 7: 07/30/21 04:28 08/01/21 06:03 Labs: Abnormal Lab Results - Last 24 Hours (Table) 08/01/21 08/01/21 08/01/21 Range/Units 06:03 06:21 11:52 Sodium 136 L (137-145) mmol/L BUN 40 H (7-17) mg/dL Creatinine 1.52 H (0.52-1.04) mg/dL POC Glucose (mg/dL) 125 H 104 H (75-99) mg/dL Magnesium 2.5 H (1.6-2.3) mg/dL AST 43 H (14-36) U/L ALT 37 H (4-34) U/L Alkaline Phosphatase 213 H (38-126) U/L Albumin 2.8 L (3.5-5.0) g/dL
[2021-08-01] MEDS: ACETAMINOPHEN IV SCH (16:06)
[2021-08-01 17:04] LABS: Glucose,Whole Blood 98 mg/dL (75-99)
[2021-08-01 23:51] LABS: Glucose,Whole Blood 97 mg/dL (75-99)
[2021-08-02] MEDS: ACETAMINOPHEN IV SCH ×3 (00:03→16:31)
[2021-08-02] MEDS: METOCLOPRAMIDE 5 MG/ML 2 ML VIAL IVP SCH ×4 (00:04→16:31)
[2021-08-02] MEDS: INSULIN ASPART (NovoLOG) 100 UNIT/ML VIAL SQ SCH ×3 (06:02→16:31)
[2021-08-02 06:04] LABS: Glucose,Whole Blood 85 mg/dL (75-99)
[2021-08-02 06:53] LABS: Glucose,Whole Blood 83 mg/dL (75-99)
[2021-08-02 07:13] LABS: ALT 42 U/L (4-34); AST 50 U/L (14-36); African American GFR (CKD) 35 (>60 ml/min/1.73 sqM); Albumin 2.9 g/dL (3.5-5.0); Albumin/Globulin Ratio 0.7; Alkaline Phosphatase 214 U/L (38-126); Anion Gap 12 mmol/L; Blood Urea Nitrogen 38 mg/dL (7-17); Calcium 8.5 mg/dL (8.4-10.2); Carbon Dioxide 23 mmol/L (22-30); Chloride 101 mmol/L (98-107); Glucose 85 mg/dL (74-99); Magnesium 2.4 mg/dL (1.6-2.3); Non-African American GFR(CKD) 30 (>60 ml/min/1.73 sqM); Phosphorus 3.9 mg/dL (2.5-4.5); Potassium 4.1 mmol/L (3.5-5.1); Sodium 136 mmol/L (137-145); Total Bilirubin 0.6 mg/dL (0.2-1.3); Total Protein 6.9 g/dL (6.3-8.2)
[2021-08-02] MEDS: FUROSEMIDE 40 MG TAB PO SCH (07:17)
[2021-08-02] MEDS: OXYBUTYNIN CHLORIDE 5 MG TAB PO SCH ×2 (07:17→20:45)
--- NOTE | 2021-08-02 08:54 | NM ---
EXAMINATION TYPE: NM hepatobiliary wo EF DATE OF EXAM: 08/02/2021 COMPARISON: NONE HISTORY: cholecystitis TECHNIQUE: After the intravenous administration of 4.2 mCi Tc 99m Mebrofenin hepatobiliary scintigrap hy is performed. Immediate images post injection. FINDINGS: The gallbladder is visualized at approximately 12 minutes. Small bowel activity is noted at 22 minute s. IMPRESSION: Exam is within normal limits.
[2021-08-02] MEDS ORDERED: IOPAMIDOL CONTRAST (ORAL USE) VIAL PO PRN (09:09)
[2021-08-02] MEDS: PANTOPRAZOLE 40 MG/10 ML VIAL IVP SCH (09:26)
[2021-08-02] MEDS: CEFEPIME 1 GM in SODIUM CHLORIDE 0.9% 50 ML IVPB SCH ×2 (09:26→20:43)
[2021-08-02] MEDS: ENOXAPARIN 30 MG/0.3 ML SYRINGE SQ SCH (09:26)
--- NOTE | 2021-08-02 10:34 | P.PN ---
Subjective Patient is seen in follow-up for acute kidney injury. Renal function is fairly stable. Maintained on oral Lasix. Martin catheter removed. Has been voiding. Starting clear liquid diet today. Surgery following. Hemodynamically stable. No chest pain or shortness of breath. 2 L nasal cannula. Vital signs are stable. General: Awake. No acute distress. HEENT: Head exam is unremarkable. LUNGS: Breath sounds decreased. HEART: Rate and Rhythm are regular. ABDOMEN: Soft, no tenderness. EXTREMITITES: No edema. Objective - Vital Signs Vital signs: Vital Signs Temp 98.2 F 08/02/21 07:23 Pulse 85 08/02/21 07:23 Resp 17 08/02/21 07:23 BP 131/70 08/02/21 07:23 Pulse Ox 99 08/02/21 07:23 Intake & Output 08/01/21 08/02/21 08/02/21 18:59 06:59 18:59 Output Total 950 Balance -950 Weight 46 kg Output: Urine 950 ABP, PAP, CO, CI - Last Documented Arterial Blood Pressure 154/64 - Labs CBC & Chem 7: 07/30/21 04:28 08/02/21 06:28 Labs: Abnormal Lab Results - Last 24 Hours (Table) 08/01/21 08/02/21 Range/Units 11:52 06:28 Sodium 136 L (137-145) mmol/L BUN 38 H (7-17) mg/dL Creatinine 1.54 H (0.52-1.04) mg/dL POC Glucose (mg/dL) 104 H (75-99) mg/dL Magnesium 2.4 H (1.6-2.3) mg/dL AST 50 H (14-36) U/L ALT 42 H (4-34) U/L Alkaline Phosphatase 214 H (38-126) U/L Albumin 2.9 L (3.5-5.0) g/dL Assessment and Plan Plan: Assessment: 1. Acute kidney injury mostly prerenal secondary to hypovolemia and volume depletion. Was receiving Toradol for pain. Renal function slightly worse from diuresis. Creatinine stable at 1.54 today. 2. Chronic kidney disease stage IIIb with baseline creatinine in the range of 1.3 secondary to nephrosclerosis. 3. Benign hypertension. Stable. 4. Small bowel obstruction status post exploratory laparotomy with lysis of a dhesions and small bowel resection. Surgery following. 5. Hyponatremia secondary to acute kidney injury and poor solute intake. Better. 6. Anemia. Iron deficiency noted. Status post IV iron. 7. Volume overload. Improved with diuresis. Plan: Diet per surgery. Maintain oral Lasix. Avoid nephrotoxins. Avoid NSAIDs. Continue to monitor renal function and urine output.
[2021-08-02 11:11] LABS: Glucose,Whole Blood 82 mg/dL (75-99)
--- NOTE | 2021-08-02 11:25 | P.PN ---
Subjective Progress Note Date: 08/02/21 CHIEF COMPLAINT: Abdominal pain HISTORY OF PRESENT ILLNESS: Patient is status post exploratory laparotomy, lysis of adhesions and small bowel resection for small bowel obstruction with adhesions on 07/21/21. Patient had a large bowel movement this morning. She is having flatus. No nausea or vomiting reported. She reports that her abdominal pain has shown improvement. She's scheduled for replacement of her PICC line today. Her abdominal x-ray over the weekend had shown resolving ileus. Gallbladder ultrasound showed no evidence of gallstones. HIDA scan was within normal limits. Sodium 136 creatinine 1.54 AST 50 ALT 42 alk phos 214 total bilirubin 0.6 Patient seen and examined with Dr. hicks PHYSICAL EXAM: VITAL SIGNS: Reviewed. GENERAL: Well-developed in no acute distress. HEENT: No sclera icterus. Extraocular movements grossly intact. Moist buccal mucosa. Head is atraumatic, normocephalic. ABDOMEN: Soft. Nondistended. Nontender. Incision site clean dry and intact. NEUROLOGIC: Confused ASSESSMENT: 1. Small bowel obstruction with adhesions status post exploratory laparotomy, lysis of adhesions and small bowel resection 2. Abdominal pain 3. Hypokalemia and hypomagnesemia improved 4. Prolonged Postoperative ileus can be an expected finding 5. Iron deficiency anemia receiving IV iron 6. Metabolic encephalopathy PLAN: -Patient having bowel function. Start full liquid diet -Continue IV Reglan for now -Patient scheduled for another PICC line placed today for TPN -Continue TPN for nutrition support until oral intake increases -Continue supportive care -Continue pain medication as needed -Encouraged patient to use incentive spirometer -Encouraged patient to increase activity level -GI prophylaxis Protonix and DVT prophylaxis Lovenox Physician Test Inspection Engineer note has been reviewed by physician. Signing provider agrees with the documented findings, assessment, and plan of care. Objective - Vital Signs Vital signs: Vital Signs Temp 98.2 F 08/02/21 07:23 Pulse 85 08/02/21 07:23 Resp 17 08/02/21 07:23 BP 131/70 08/02/21 07:23 Pulse Ox 99 08/02/21 07:23 Intake & Output 08/01/21 08/02/21 08/02/21 18:59 06:59 18:59 Output Total 950 Balance -950 Weight 46 kg Output: Urine 950 ABP, PAP, CO, CI - Last Documented Arterial Blood Pressure 154/64 - Labs CBC & Chem 7: 07/30/21 04:28 08/02/21 06:28 Labs: Abnormal Lab Results - Last 24 Hours (Table) 08/01/21 08/02/21 Range/Units 11:52 06:28 Sodium 136 L (137-145) mmol/L BUN 38 H (7-17) mg/dL Creatinine 1.54 H (0.52-1.04) mg/dL POC Glucose (mg/dL) 104 H (75-99) mg/dL Magnesium 2.4 H (1.6-2.3) mg/dL AST 50 H (14-36) U/L ALT 42 H (4-34) U/L Alkaline Phosphatase 214 H (38-126) U/L Albumin 2.9 L (3.5-5.0) g/dL
[2021-08-02] MEDS ORDERED: LIDOCAINE 1% INJ 10MG/ML (5 ML VIAL-PF) SQ ONE (13:14)
[2021-08-02 13:28] VITALS: BMI 19.8
--- NOTE | 2021-08-02 13:31 | P.PN ---
Progress Note - Text Progress Note Date: 08/02/21 Chief Complaint: Abdominal pain History of presenting complaint: This is a 85-year-old patient of Dr. Johnson. Chronic stable medical conditions include COPD, GERD, rheumatoid arthritis, celiac disease, chronic urinary incontinence, lumbar radiculopathy , diverticulosis. Patient does use a walker. She was admitted here in January 2021 with severe bowel spasms. Patient yesterday after started having increasing abdominal pain across. Leg cramping. Along with nausea vomiting. Not able to keep anything down. [place] hot. Normally has a bowel movement every other day. Had a bowel movement yesterday. No improvement. Computed tomography scan of the ER showed air-fluid levels. Made nothing by mouth. Surgery consulted. Admitted with acute possible colitis with severe bowel spasms. Subsequent x- rays showing worsening bowel obstruction. July 21 patient underwent surgical intervention by Dr. Stauffer. Fibrotic band was causing small bowel obstruction. Patient also treated with TPN and lipids. July 21 through July 25 patient was followed by [facility] hospitalists. July 26: Patient is laying in bed bed. Tired. Some abdominal pain. Had a bowel movement. Liquid diet. No nausea vomiting. July 27: Abdominal pain. No nausea vomiting. No BM. Made nothing by mouth by surgery. Ordered chewing gum. TPN and lipids to continue. Tired. July 28: Abdominal pain. Distention. No BM. Abdominal x-ray is reviewed. Ileus. Surgery informed. Dr. Stauffer ordered Dulcolax. By late in the evening patient not had a bowel movement. Patient be short of breath. Chest x- ray ordered showed pulmonary edema possible infiltrate. Changing antibiotic to IV cefepime. IV Lasix. 80 mg every 8, 2 doses. Earlier care was discussed with the patient and at the bedside. July 29: Abdominal pain still present. No response to suppository yesterday. Breathing better with IV Lasix. On ice chips. Discussed with the patient has been. No nausea vomiting. Started on IV cefepime yesterday for pneumonia July 30: Patient up in a chair. Delirious. She thinks she is us come back from her doctor's appointment. She is at her brother's house. Dilaudid discontinued. Abdomen still distended. X-ray showing ileus. Discussed with surgery. July 31: No flatus. Some decrease in abdominal pain. TPN lipids. Answering questions. Started on clear liquid diet. August 1: Patient has been more awake since narcotics or be discontinued. Tired. Last night PICC line accidentally got pulled out. On his been present for a new one. Tolerating clear liquid. Some flatus. No BM. August 2: Diet. Up in a chair. Had a BM. Advance to full liquids. TPN lipids to continue. Active Medications Hydrocodone Bitart/Acetaminophen (Hydrocodone/Apap 5-325mg 1 Each Tab) 1 each PO Q4HR PRN PRN Reason: Pain Last Admin: 07/30/21 10:35 Dose: 1 each Documented by: Albuterol/Ipratropium (Ipratropium-Albuterol 3 Ml Neb) 3 ml INHALATION RT-QID PRN PRN Reason: Shortness Of Breath Or Wheezing Benzocaine (Benzocaine [place] 1 Can) 1 spray MUCOUS MEM QID PRN; Protocol PRN Reason: Mouth Irritation Benzocaine/Menthol (Benzocaine/Menthol Lozeng 1 Each Lozenge) 1 each MUCOUS MEM Q4HR PRN PRN Reason: Sore Throat Last Admin: 07/28/21 02:33 Dose: 1 each Documented by: Enoxaparin Sodium (Enoxaparin 30 Mg/0.3 Ml Syringe) 30 mg SQ DAILY [facility] Last Admin: 08/02/21 09:26 Dose: 30 mg Documented by: Furosemide (Furosemide 40 Mg Tab) 40 mg PO DAILY [facility] Last Admin: 08/02/21 07:17 Dose: Not Given Documented by: Cefepime HCl 1 gm/ Sodium (Chloride) 50 mls @ 12.5 mls/hr IVPB Q12HR [facility]A Last Admin: 08/02/21 09:26 Dose: 12.5 mls/hr Documented by: Acetaminophen 680 mg/ IV (Solution) 68 mls @ 272 mls/hr IV Q8H [facility] Last Admin: 08/02/21 09:25 Dose: 272 mls/hr Documented by: Insulin Aspart (Insulin Aspart (Novolog) 100 Unit/Ml Vial) 0 unit SQ Q6H [facility]; Protocol Last Admin: 08/02/21 11:36 Dose: Not Given Documented by: Metoclopramide HCl (Metoclopramide 5 Mg/Ml 2 Ml Vial) 10 mg IVP Q6HR [facility] Last Admin: 08/02/21 06:02 Dose: 10 mg Documented by: Naloxone HCl (Naloxone 0.4 Mg/Ml 1 Ml Vial) 0.2 mg IV Q2M PRN PRN Reason: Opioid Reversal Ondansetron HCl (Ondansetron 4 Mg/2 Ml Vial) 4 mg IVP Q8HR PRN PRN Reason: Nausea And Vomiting Last Admin: 08/01/21 12:48 Dose: 4 mg Documented by: Oxybutynin Chloride (Oxybutynin Chloride 5 Mg Tab) 5 mg PO BID [facility] Last Admin: 08/02/21 07:17 Dose: Not Given Documented by: Pantoprazole Sodium (Pantoprazole 40 Mg/10 Ml Vial) 40 mg IVP DAILY [facility] Last Admin: 08/02/21 09:26 Dose: 40 mg Documented by: Sodium Chloride (Sodium Chloride 0.9% Flush 10 Ml Syringe) 10 ml IV Q4HR PRN PRN Reason: PICC Line Sodium Chloride (Sodium Chloride 0.9% Flush 10 Ml Syringe) 10 ml IV WEEKLY [facility] Last Admin: 08/02/21 07:18 Dose: Not Given Documented by: Sodium Chloride (Sodium Chloride 0.9% Flush 10 Ml Syringe) 20 ml IV Q4HR PRN PRN Reason: PICC Line Past medical history to include: COPD, GERD, rheumatoid arthritis, questionable stroke, pubic rami fracture, celiac disease, cerebral aneurysm and AAA repair, lumbar radiculopathy, 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 . Does use a walker to get about . Family history: Throat cancer Physical examination: VITAL SIGNS: 98.2, 85, 17, 131/70, 99% on 2 L GENERAL: Reclining in bed, tired EYES: Pupils equal. Conjunctiva normal. HEENT: External appearance of nose and ears normal, oral cavity grossly normal. NG tube to suction NECK: JVD not raised; masses not palpable. HEART: First and second heart sounds are normal; no edema. LUNGS: Respiratory rate normal decreased breath sounds ABDOMEN: Soft, no distention. Minimal tender, no guarding rigidity liver spleen not palpable, no masses palpable. Bowel sounds present. PSYCH: Answering simple questions MUSCULOSKELETAL: Evidence of arthritis especially in the hands, INVESTIGATIONS, reviewed in the clinical context: August 02: Potassium 4.1 BUN 38 creatinine 1.5 for August 01: Sodium 136 potassium 4.5 creatinine 1.5 to July 31: BUN 41 creatinine 1.4 July 30: White count 9.2 hemoglobin 8 platelets 584 sodium 135 BUN 46, creatinine: 1.40. Abdominal x-ray film personally reviewed by me: Ileus July 29: White count 9.2 hemoglobin 8.3 platelets 517 sodium 135 potassium 4.2 BUN 45 creatinine 1.5 bun pro-calcitonin 2.11 July 28: Sodium 132 BUN 39 creatinine 1.28. Abdominal x-ray: Dilated loops of bowel. Chest x-ray film. Pulmonary edema infiltrate July 27: White count 8.3 hemoglobin 8.6 platelets 404 potassium 4.8 BUN 40 creatinine 1.3 Sodium 133 potassium 4.3 BUN 37 creatinine 1.19 Chest x-ray film personally reviewed by me-[July 17]: Multiple air fluid levels. White count 6.2 hemoglobin 11.8 platelets 228 potassium 4.6 BUN 36 creatinine 1.74 EKG tracing personally reviewed by me-normal sinus rhythm. Rate 84 CT abdomen pelvis without contrast: Chronic diverticulosis. Multiple small bowel fluid levels. Other findings noted. Previous labs: Creatinine 2.04 on January 2021. Assessment and plan: -Acute small bowel obstruction from fibrotic band. . Received IV Zosyn. NG tube discontinued . July 21 underwent abdominal surgery with fibrotic band resected and small bowel resection reattached. -Acute delirium: Some improvement DC Dilaudid. - postop ileus: Clinical improving Had a BM today. Diet advanced to full liquids. -Probable pneumonia suspected gram-negative organism: IV cefepime -Acute pulmonary edema from IV fluids: Better Received IV Lasix . 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 Improved -TPN and lipids -Moderate protein calorie malnutrition Supplemental nutrition IV -Acute medical debility. PT OT -Full code IV cefepime. TPN and lipids-advanced to full liquids. Other medications to continue.
--- NOTE | 2021-08-02 14:01 | IR ---
PICC LINE PLACEMENT: HISTORY: TPN therapy PROCEDURE: Ultrasound and fluoroscopic guidance of PICC line placement. COMPLICATIONS: None ANESTHESIA: 1. 1% Lidocaine locally. FINDINGS/TECHNIQUE: The procedure was explained to the patient. The risks, complications, benefits and alternatives were discussed and any questions were answered. Informed consent was obtained. The patient was placed supine on the fluoroscopic table and prepped and draped in the usual sterile [facility] ion. Utilizing a 21 gauge needle and sonographic and fluoroscopic guidance, access in the right bra chial vein was achieved and there is placement of a 0.018 guidewire. The vein is patent. A 4-F ortega th was placed over the guidewire. The guidewire and dilator were removed and a 4-F. PICC line was pl aced through the sheath with the tip at the level of the SVC. The sheath was removed, the catheter w as flushed and sutured into position. The patient was stable throughout the procedure and remained s table upon discharge from the Department of Radiology. The vein puncture was patent under ultrasound. A bronson scale image was obtained to document patency of the vein punctured. All elements of the maximal barrier technique were utilized. FLUOROSCOPY TIME: 0.3 minutes and 1 images submitted IMPRESSION: Successful PICC line placement under ultrasound and fluoroscopic guidance.
[2021-08-02 16:15] LABS: Glucose,Whole Blood 151 mg/dL (75-99)
[2021-08-03 00:20] LABS: Glucose,Whole Blood 119 mg/dL (75-99)
[2021-08-03] MEDS: INSULIN ASPART (NovoLOG) 100 UNIT/ML VIAL SQ SCH ×4 (00:20→16:48)
[2021-08-03] MEDS: METOCLOPRAMIDE 5 MG/ML 2 ML VIAL IVP SCH ×4 (01:03→16:48)
[2021-08-03] MEDS: ACETAMINOPHEN IV SCH ×3 (01:19→17:01)
[2021-08-03 05:36] LABS: Glucose,Whole Blood 121 mg/dL (75-99)
[2021-08-03] MEDS ORDERED: FAT EMULSION 20% 250 ML in EMPTY BAG 1 BAG IV SCH (06:00)
[2021-08-03 06:05] LABS: African American GFR (CKD) 37 (>60 ml/min/1.73 sqM); Anion Gap 11 mmol/L; Blood Urea Nitrogen 38 mg/dL (7-17); Calcium 8.8 mg/dL (8.4-10.2); Carbon Dioxide 22 mmol/L (22-30); Chloride 104 mmol/L (98-107); Glucose 116 mg/dL (74-99); Magnesium 2.4 mg/dL (1.6-2.3); Non-African American GFR(CKD) 32 (>60 ml/min/1.73 sqM); Phosphorus 3.4 mg/dL (2.5-4.5); Potassium 4.3 mmol/L (3.5-5.1); Sodium 137 mmol/L (137-145)
[2021-08-03] MEDS: OXYBUTYNIN CHLORIDE 5 MG TAB PO SCH ×2 (07:05→20:54)
[2021-08-03] MEDS: FUROSEMIDE 40 MG TAB PO SCH (07:05)
[2021-08-03] MEDS: PANTOPRAZOLE 40 MG/10 ML VIAL IVP SCH (07:05)
[2021-08-03] MEDS: CEFEPIME 1 GM in SODIUM CHLORIDE 0.9% 50 ML IVPB SCH ×2 (07:06→20:53)
[2021-08-03] MEDS: ENOXAPARIN 30 MG/0.3 ML SYRINGE SQ SCH (07:06)
[2021-08-03 10:52] LABS: Basophils # (A) 0.1 k/uL (0-0.2); Basophils % (A) 1 %; Eosinophils # (A) 0.3 k/uL (0-0.7); Eosinophils % (A) 3 %; HCT 31.2 % (34.0-46.0); HGB 9.3 gm/dL (11.4-16.0); Hypochromasia Marked; Lymphocytes % (A) 9 %; MCH 28.8 pg (25.0-35.0); MCHC 29.7 g/dL (31.0-37.0); MCV 97.2 fL (80.0-100.0); Monocytes # (A) 0.4 k/uL (0-1.0); Monocytes % (A) 4 %; Neutrophils # (A) 8.3 k/uL (1.3-7.7); Neutrophils % (A) 82 %; Platelet Count 856 k/uL (150-450); RBC 3.21 m/uL (3.80-5.40); RDW 14.6 % (11.5-15.5); WBC 10.1 k/uL (3.8-10.6)
--- NOTE | 2021-08-03 10:53 | P.PN ---
Subjective Patient is seen in follow-up for acute kidney injury. Renal function is fairly stable. Maintained on oral Lasix. Martin catheter removed. Has been voiding. Unclear liquid diet. Also receiving TPN. Surgery following. Hemodynamically stable. No chest pain or shortness of breath. On room air. Denies any pain. Vital signs are stable. General: Awake. No acute distress. HEENT: Head exam is unremarkable. LUNGS: Breath sounds decreased. HEART: Rate and Rhythm are regular. ABDOMEN: Soft, no tenderness. EXTREMITITES: No edema. Objective - Vital Signs Vital signs: Vital Signs Temp 97.8 F 08/03/21 08:00 Pulse 108 H 08/03/21 08:00 Resp 16 08/03/21 08:00 BP 160/73 08/03/21 08:00 Pulse Ox 94 L 08/03/21 08:00 Intake & Output 08/02/21 08/03/21 08/03/21 18:59 06:59 18:59 Output Total 550 400 Balance -550 -400 Weight 46 kg Output: Urine 550 400 Other: Voiding Method External Catheter External Catheter # Voids 1 # Bowel Movements 3 1 ABP, PAP, CO, CI - Last Documented Arterial Blood Pressure 154/64 - Labs CBC & Chem 7: 07/30/21 04:28 08/03/21 05:32 Labs: Abnormal Lab Results - Last 24 Hours (Table) 08/02/21 08/03/21 08/03/21 Range/Units 16:14 00:18 05:32 BUN 38 H (7-17) mg/dL Creatinine 1.47 H (0.52-1.04) mg/dL Glucose 116 H (74-99) mg/dL POC Glucose (mg/dL) 151 H 119 H (75-99) mg/dL Magnesium 2.4 H (1.6-2.3) mg/dL 08/03/21 Range/Units 05:34 BUN (7-17) mg/dL Creatinine (0.52-1.04) mg/dL Glucose (74-99) mg/dL POC Glucose (mg/dL) 121 H (75-99) mg/dL Magnesium (1.6-2.3) mg/dL Assessment and Plan Plan: Assessment: 1. Acute kidney injury mostly prerenal secondary to hypovolemia and volume depletion. Was receiving Toradol for pain. Renal function slightly worse from diuresis. Creatinine stable at 1.47 today. 2. Chronic kidney disease stage IIIb with baseline creatinine in the range of 1.3 secondary to nephrosclerosis. 3. Benign hypertension. Stable. 4. Small bowel obstruction status post exploratory laparotomy with lysis of adhesions and small bowel resection. Surgery following. 5. Hyponatremia secondary to acute kidney injury and poor solute intake. Better. 6. Anemia. Iron deficiency noted. Status post IV iron. 7. Volume overload. Improved with diuresis. Plan: Diet/TPN per surgery. Maintain oral Lasix. Avoid nephrotoxins. Avoid NSAIDs. Continue to monitor renal function and urine output. Add Aranesp.
[2021-08-03] MEDS ORDERED: DARBEPOETIN ALFA 40 MCG/0.4 ML SYRINGE SQ SCH (11:00)
[2021-08-03 11:22] LABS: Glucose,Whole Blood 274 mg/dL (75-99)
--- NOTE | 2021-08-03 13:15 | P.PN ---
Subjective Progress Note Date: 08/03/21 CHIEF COMPLAINT: Abdominal pain HISTORY OF PRESENT ILLNESS: Patient is status post exploratory laparotomy, lysis of adhesions and small bowel resection for small bowel obstruction with adhesions on 07/21/21. Patient had a large bowel movement yesterday. Denies any nausea or vomiting. She is eating a small amount of her tray. Carotid full liquid diet. Also restarted on TPN. Afebrile. WBC 10.1 and he will and 9.3 platelets 856 sodium 137 potassium 4.3 creatinine 1.47 a niece and 2.4 Patient seen and examined with Dr. hicks PHYSICAL EXAM: VITAL SIGNS: Reviewed. GENERAL: Well-developed in no acute distress. HEENT: No sclera icterus. Extraocular movements grossly intact. Moist buccal m ucosa. Head is atraumatic, normocephalic. ABDOMEN: Soft. Nondistended. Nontender. Incision site clean dry and intact. NEUROLOGIC: Confused ASSESSMENT: 1. Small bowel obstruction with adhesions status post exploratory laparotomy, lysis of adhesions and small bowel resection 2. Abdominal pain 3. Hypokalemia and hypomagnesemia improved 4. Prolonged Postoperative ileus can be an expected finding 5. Iron deficiency anemia receiving IV iron 6. Metabolic encephalopathy PLAN: -Continue full liquid diet -Continue IV Reglan -Continue TPN for nutrition support until oral intake increases -Continue supportive care -Continue pain medication as needed -Encouraged patient to use incentive spirometer -Encouraged patient to increase activity level -Patient will require ECF placement at discharge -GI prophylaxis Protonix and DVT prophylaxis Lovenox Physician Opthalmic Tech note has been reviewed by physician. Signing provider agrees with the documented findings, assessment, and plan of care. Objective - Vital Signs Vital signs: Vital Signs Temp 97.8 F 08/03/21 08:00 Pulse 108 H 08/03/21 08:00 Resp 16 08/03/21 08:00 BP 160/73 08/03/21 08:00 Pulse Ox 94 L 08/03/21 08:00 Intake & Output 08/02/21 08/03/21 08/03/21 18:59 06:59 18:59 Output Total 550 400 Balance -550 -400 Weight 46 kg Output: Urine 550 400 Other: Voiding Method External Catheter External Catheter # Voids 1 # Bowel Movements 3 1 ABP, PAP, CO, CI - Last Documented Arterial Blood Pressure 154/64 - Labs CBC & Chem 7: 08/03/21 05:32 08/03/21 05:32 Labs: Abnormal Lab Results - Last 24 Hours (Table) 08/02/21 08/03/21 08/03/21 Range/Units 16:14 00:18 05:32 RBC (3.80-5.40) m/uL Hgb (11.4-16.0) gm/dL Hct (34.0-46.0) % MCHC (31.0-37.0) g/dL Plt Count (150-450) k/uL Neutrophils # (1.3-7.7) k/uL BUN 38 H (7-17) mg/dL Creatinine 1.47 H (0.52-1.04) mg/dL Glucose 116 H (74-99) mg/dL POC Glucose (mg/dL) 151 H 119 H (75-99) mg/dL Magnesium 2.4 H (1.6-2.3) mg/dL 08/03/21 08/03/21 08/03/21 Range/Units 05:32 05:34 11:21 RBC 3.21 L (3.80-5.40) m/uL Hgb 9.3 L (11.4-16.0) gm/dL Hct 31.2 L (34.0-46.0) % MCHC 29.7 L (31.0-37.0) g/dL Plt Count 856 H (150-450) k/uL Neutrophils # 8.3 H (1.3-7.7) k/uL BUN (7-17) mg/dL Creatinine (0.52-1.04) mg/dL Glucose (74-99) mg/dL POC Glucose (mg/dL) 121 H 274 H (75-99) mg/dL Magnesium (1.6-2.3) mg/dL
--- NOTE | 2021-08-03 15:15 | P.PN ---
Progress Note - Text Progress Note Date: 08/03/21 Chief Complaint: Abdominal pain History of presenting complaint: This is a 85-year-old patient of Dr. Johnson. Chronic stable medical conditions include COPD, GERD, rheumatoid arthritis, celiac disease, chronic urinary incontinence, lumbar radiculopathy , diverticulosis. Patient does use a walker. She was admitted here in January 2021 with severe bowel spasms. Patient yesterday after started having increasing abdominal pain across. Leg cramping. Along with nausea vomiting. Not able to keep anything down. [place] hot. Normally has a bowel movement every other day. Had a bowel movement yesterday. No improvement. Computed tomography scan of the ER showed air-fluid levels. Made nothing by mouth. Surgery consulted. Admitted with acute possible colitis with severe bowel spasms. Subsequent x- rays showing worsening bowel obstruction. July 21 patient underwent surgical intervention by Dr. Stauffer. Fibrotic band was causing small bowel obstruction. Patient also treated with TPN and lipids. July 21 through July 25 patient was followed by [facility] hospitalists. July 26: Patient is laying in bed bed. Tired. Some abdominal pain. Had a bowel movement. Liquid diet. No nausea vomiting. July 27: Abdominal pain. No nausea vomiting. No BM. Made nothing by mouth by surgery. Ordered chewing gum. TPN and lipids to continue. Tired. July 28: Abdominal pain. Distention. No BM. Abdominal x-ray is reviewed. Ileus. Surgery informed. Dr. Stauffer ordered Dulcolax. By late in the evening patient not had a bowel movement. Patient be short of breath. Chest x- ray ordered showed pulmonary edema possible infiltrate. Changing antibiotic to IV cefepime. IV Lasix. 80 mg every 8, 2 doses. Earlier care was discussed with the patient and at the bedside. July 29: Abdominal pain still present. No response to suppository yesterday. Breathing better with IV Lasix. On ice chips. Discussed with the patient has been. No nausea vomiting. Started on IV cefepime yesterday for pneumonia July 30: Patient up in a chair. Delirious. She thinks she is us come back from her doctor's appointment. She is at her brother's house. Dilaudid discontinued. Abdomen still distended. X-ray showing ileus. Discussed with surgery. July 31: No flatus. Some decrease in abdominal pain. TPN lipids. Answering questions. Started on clear liquid diet. August 1: Patient has been more awake since narcotics or be discontinued. Tired. Last night PICC line accidentally got pulled out. On his been present for a new one. Tolerating clear liquid. Some flatus. No BM. August 2: Diet. Up in a chair. Had a BM. Advance to full liquids. TPN lipids to continue. August 3: Tolerating some full liquid. In the recliner. Tired. Had a good BM yesterday. Getting TPN and lipids.. Active Medications Hydrocodone Bitart/Acetaminophen (Hydrocodone/Apap 5-325mg 1 Each Tab) 1 each PO Q4HR PRN PRN Reason: Pain Last Admin: 07/30/21 10:35 Dose: 1 each Documented by: Albuterol/Ipratropium (Ipratropium-Albuterol 3 Ml Neb) 3 ml INHALATION RT-QID PRN PRN Reason: Shortness Of Breath Or Wheezing Benzocaine (Benzocaine [place] 1 Can) 1 spray MUCOUS MEM QID PRN; Protocol PRN Reason: Mouth Irritation Benzocaine/Menthol (Benzocaine/Menthol Lozeng 1 Each Lozenge) 1 each MUCOUS MEM Q4HR PRN PRN Reason: Sore Throat Last Admin: 07/28/21 02:33 Dose: 1 each Documented by: Darbepoetin Juan (Darbepoetin Juan 40 Mcg/0.4 Ml Syringe) 40 mcg SQ Q7D [facility] Last Admin: 08/03/21 12:52 Dose: 40 mcg Documented by: Enoxaparin Sodium (Enoxaparin 30 Mg/0.3 Ml Syringe) 30 mg SQ DAILY [facility] Last Admin: 08/03/21 07:06 Dose: 30 mg Documented by: Furosemide (Furosemide 40 Mg Tab) 40 mg PO DAILY [facility] Last Admin: 08/03/21 07:05 Dose: 40 mg Documented by: Cefepime HCl 1 gm/ Sodium (Chloride) 50 mls @ 12.5 mls/hr IVPB Q12HR [facility] Last Admin: 08/03/21 07:06 Dose: 12.5 mls/hr Documented by: Acetaminophen 680 mg/ IV (Solution) 68 mls @ 272 mls/hr IV Q8H [facility] Last Admin: 08/03/21 10:05 Dose: 272 mls/hr Documented by: Parenteral Vitamin Supplement 10 ml/ Zinc/Copper/Manganese/Selenium 1 ml/ Sodium Acetate 70 meq/ Sodium Chloride 25 meq / Sodium Phosphate 9 mmol/Potassium Chloride 20 meq/Calcium Gluconate 1 gm/ Amino Acids/Dextrose 1,079 mls @ 60 mls/hr IV .BY DURATION [facility] Last Admin: 08/03/21 06:00 Dose: 60 mls/hr Documented by: Sodium Acetate 70 meq/ Sodium Chloride 25 meq/ Sodium Phosphate 9 mmol/ Potassium Chloride 20 meq/ Calcium Gluconate 1 gm/ Amino Acids/Dextrose 1,068 mls @ 60 mls/hr IV .BY DURATION [facility] Fat Emulsion Intravenous 250 (ml/ IV Solution) 250 mls @ 21 mls/hr IV Q7D [facility] Last Admin: 08/03/21 05:44 Dose: 21 mls/hr Documented by: Insulin Aspart (Insulin Aspart (Novolog) 100 Unit/Ml Vial) 0 unit SQ Q6H [facility]; Protocol Last Admin: 08/03/21 12:35 Dose: 4 unit Documented by: Metoclopramide HCl (Metoclopramide 5 Mg/Ml 2 Ml Vial) 10 mg IVP Q6HR [facility] Last Admin: 08/03/21 12:35 Dose: 10 mg Documented by: Naloxone HCl (Naloxone 0.4 Mg/Ml 1 Ml Vial) 0.2 mg IV Q2M PRN PRN Reason: Opioid Reversal Ondansetron HCl (Ondansetron 4 Mg/2 Ml Vial) 4 mg IVP Q8HR PRN PRN Reason: Nausea And Vomiting Last Admin: 08/01/21 12:48 Dose: 4 mg Documented by: Oxybutynin Chloride (Oxybutynin Chloride 5 Mg Tab) 5 mg PO BID [facility] Last Admin: 08/03/21 07:05 Dose: 5 mg Documented by: Pantoprazole Sodium (Pantoprazole 40 Mg/10 Ml Vial) 40 mg IVP DAILY [facility] Last Admin: 08/03/21 07:05 Dose: 40 mg Documented by: Sodium Chloride (Sodium Chloride 0.9% Flush 10 Ml Syringe) 10 ml IV Q4HR PRN PRN Reason: PICC Line Sodium Chloride (Sodium Chloride 0.9% Flush 10 Ml Syringe) 10 ml IV WEEKLY [facility] Last Admin: 08/02/21 07:18 Dose: Not Given Documented by: Sodium Chloride (Sodium Chloride 0.9% Flush 10 Ml Syringe) 20 ml IV Q4HR PRN PRN Reason: PICC Line Past medical history to include: COPD, GERD, rheumatoid arthritis, questionable stroke, pubic rami fracture, celiac disease, cerebral aneurysm and AAA repair, lumbar radiculopathy, 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 . Does use a walker to get about . Family history: Throat cancer Physical examination: VITAL SIGNS: 98.6, 88, 18, 127/71, 95% on 3 L GENERAL: Reclining in bed, tired EYES: Pupils equal. Conjunctiva normal. HEENT: External appearance of nose and ears normal, oral cavity grossly normal. NG tube to suction NECK: JVD not raised; masses not palpable. HEART: First and second heart sounds are normal; no edema. LUNGS: Respiratory rate normal decreased breath sounds ABDOMEN: Soft, no distention. Minimal tender, no guarding rigidity liver spleen not palpable, no masses palpable. Bowel sounds present. PSYCH: Answering simple questions MUSCULOSKELETAL: Evidence of arthritis especially in the hands, INVESTIGATIONS, reviewed in the clinical context: August 03: White count 10.1 hemoglobin 9.3 platelets and 56 potassium 4.3 BUN 38 creatinine 1.47 Sodium 133 potassium 4.3 BUN 37 creatinine 1.19 Chest x-ray film personally reviewed by me-[July 17]: Multiple air fluid levels. White count 6.2 hemoglobin 11.8 platelets 228 potassium 4.6 BUN 36 creatinine 1.74 EKG tracing personally reviewed by me-normal sinus rhythm. Rate 84 CT abdomen pelvis without contrast: Chronic diverticulosis. Multiple small bowel fluid levels. Other findings noted. Previous labs: Creatinine 2.04 on January 2021. Assessment and plan: -Acute small bowel obstruction from fibrotic band. . Received IV Zosyn. NG tube discontinued . July 21 underwent abdominal surgery with fibrotic band resected and small bowel resection reattached. -Acute delirium: Some improvement DC Dilaudid. - postop ileus: Clinical improving Had a BM . Continue full liquids. -Probable pneumonia suspected gram-negative organism: IV cefepime -Acute pulmonary edema from IV fluids: Better Received IV Lasix . 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 Improved -TPN and lipids -Moderate protein calorie malnutrition Supplemental nutrition IV -Acute medical debility. PT OT -Full code IV cefepime. TPN and continue full liquids. Other medications to continue. Follow with surgery.
[2021-08-03 16:34] LABS: Glucose,Whole Blood 177 mg/dL (75-99)
[2021-08-04 00:58] LABS: Glucose,Whole Blood 183 mg/dL (75-99)
[2021-08-04] MEDS: ACETAMINOPHEN IV SCH ×3 (01:01→16:16)
[2021-08-04] MEDS: METOCLOPRAMIDE 5 MG/ML 2 ML VIAL IVP SCH ×4 (01:01→18:00)
[2021-08-04] MEDS: INSULIN ASPART (NovoLOG) 100 UNIT/ML VIAL SQ SCH ×4 (01:08→18:01)
[2021-08-04 05:51] LABS: Glucose,Whole Blood 251 mg/dL (75-99)
[2021-08-04 06:12] LABS: African American GFR (CKD) 45 (>60 ml/min/1.73 sqM); Anion Gap 8 mmol/L; Blood Urea Nitrogen 37 mg/dL (7-17); Calcium 8.4 mg/dL (8.4-10.2); Carbon Dioxide 28 mmol/L (22-30); Chloride 102 mmol/L (98-107); Glucose 154 mg/dL (74-99); Non-African American GFR(CKD) 39 (>60 ml/min/1.73 sqM); Phosphorus 2.8 mg/dL (2.5-4.5); Potassium 3.9 mmol/L (3.5-5.1); Sodium 138 mmol/L (137-145)
[2021-08-04] MEDS: PANTOPRAZOLE 40 MG/10 ML VIAL IVP SCH (07:30)
[2021-08-04] MEDS: OXYBUTYNIN CHLORIDE 5 MG TAB PO SCH ×2 (07:31→21:05)
[2021-08-04] MEDS: FUROSEMIDE 40 MG TAB PO SCH (07:31)
[2021-08-04] MEDS: ENOXAPARIN 30 MG/0.3 ML SYRINGE SQ SCH (07:31)
[2021-08-04] MEDS: CEFEPIME 1 GM in SODIUM CHLORIDE 0.9% 50 ML IVPB SCH ×2 (08:38→21:05)
[2021-08-04 10:03] LABS: HGB 9.2 g/dL (12.0-15.0); MCH 28.8 pg (27.0-32.0); MCHC 30.7 g/dL (32.0-37.0); Mean Platelet Volume 8.9 fL (9.5-12.2); NRBC Per 100 WBC 0 /100 WBCS (0.0-0.0); Platelet Count 724 X 10*3/uL (140-440); RBC 3.19 X 10*6/uL (4.10-5.20); WBC 8.17 X 10*3/uL (4.50-10.00)
--- NOTE | 2021-08-04 11:52 | P.PN ---
Subjective Patient is seen in follow-up for acute kidney injury. Renal function a little better today. Maintained on oral Lasix. Martin catheter removed. Has been voiding. On full liquid diet. Also receiving TPN. Surgery following. Hemodynamically stable. No chest pain or shortness of breath. On room air. Denies any pain. Vital signs are stable. General: Awake. No acute distress. HEENT: Head exam is unremarkable. LUNGS: Breath sounds decreased. HEART: Rate and Rhythm are regular. ABDOMEN: Soft, no tenderness. EXTREMITITES: No edema. Objective - Vital Signs Vital signs: Vital Signs Temp 97.0 F L 08/04/21 08:00 Pulse 88 08/04/21 08:00 Resp 16 08/04/21 08:00 BP 143/78 08/04/21 08:00 Pulse Ox 98 08/04/21 08:00 Intake & Output 08/03/21 08/04/21 08/04/21 18:59 06:59 18:59 Output Total 650 400 Balance -650 -400 Output: Urine 650 400 Other: Voiding Method External Catheter # Bowel Movements 1 ABP, PAP, CO, CI - Last Documented Arterial Blood Pressure 154/64 - Labs CBC & Chem 7: 08/04/21 05:00 08/04/21 05:00 Labs: Abnormal Lab Results - Last 24 Hours (Table) 08/03/21 08/04/21 08/04/21 Range/Units 16:29 00:56 05:00 RBC 3.19 L (4.10-5.20) X 10*6/uL Hgb 9.2 L (12.0-15.0) g/dL Hct 30.0 L (37.2-46.3) % MCHC 30.7 L (32.0-37.0) g/dL RDW 15.0 H (11.5-14.5) % Plt Count 724 H (140-440) X 10*3/uL MPV 8.9 L (9.5-12.2) fL BUN (7-17) mg/dL Creatinine (0.52-1.04) mg/dL Glucose (74-99) mg/dL POC Glucose (mg/dL) 177 H 183 H (75-99) mg/dL 08/04/21 08/04/21 Range/Units 05:00 05:50 RBC (4.10-5.20) X 10*6/uL Hgb (12.0-15.0) g/dL Hct (37.2-46.3) % MCHC (32.0-37.0) g/dL RDW (11.5-14.5) % Plt Count (140-440) X 10*3/uL MPV (9.5-12.2) fL BUN 37 H (7-17) mg/dL Creatinine 1.25 H (0.52-1.04) mg/dL Glucose 154 H (74-99) mg/dL POC Glucose (mg/dL) 251 H (75-99) mg/dL Assessment and Plan Plan: Assessment: 1. Acute kidney injury mostly prerenal secondary to hypovolemia and volume depletion. Was receiving Toradol for pain. Renal function a little better today. Creatinine 1.25. 2. Chronic kidney disease stage IIIb with baseline creatinine in the range of 1.3 secondary to nephrosclerosis. 3. Benign hypertension. Stable. 4. Small bowel obstruction status post exploratory laparotomy with lysis of adhesions and small bowel resection. Surgery following. 5. Hyponatremia secondary to acute kidney injury and poor solute intake. Better. 6. Anemia. Iron deficiency noted. Status post IV iron. On Aranesp. 7. Volume overload. Improved with diuresis. Plan: Diet/TPN per surgery. Maintain oral Lasix. Avoid nephrotoxins. Avoid NSAIDs. Continue to monitor renal function and urine output.
[2021-08-04 11:58] LABS: Glucose,Whole Blood 158 mg/dL (75-99)
--- NOTE | 2021-08-04 14:20 | P.PN ---
Progress Note - Text Progress Note Date: 08/04/21 Chief Complaint: Abdominal pain History of presenting complaint: This is a 85-year-old patient of Dr. Johnson. Chronic stable medical conditions include COPD, GERD, rheumatoid arthritis, celiac disease, chronic urinary incontinence, lumbar radiculopathy , diverticulosis. Patient does use a walker. She was admitted here in January 2021 with severe bowel spasms. Patient yesterday after started having increasing abdominal pain across. Leg cramping. Along with nausea vomiting. Not able to keep anything down. [place] hot. Normally has a bowel movement every other day. Had a bowel movement yesterday. No improvement. Computed tomography scan of the ER showed air-fluid levels. Made nothing by mouth. Surgery consulted. Admitted with acute possible colitis with severe bowel spasms. Subsequent x- rays showing worsening bowel obstruction. July 21 patient underwent surgical intervention by Dr. Stauffer. Fibrotic band was causing small bowel obstruction. Patient also treated with TPN and lipids. July 21 through July 25 patient was followed by [facility] hospitalists. July 26: Patient is laying in bed bed. Tired. Some abdominal pain. Had a bowel movement. Liquid diet. No nausea vomiting. July 27: Abdominal pain. No nausea vomiting. No BM. Made nothing by mouth by surgery. Ordered chewing gum. TPN and lipids to continue. Tired. July 28: Abdominal pain. Distention. No BM. Abdominal x-ray is reviewed. Ileus. Surgery informed. Dr. Stauffer ordered Dulcolax. By late in the evening patient not had a bowel movement. Patient be short of breath. Chest x- ray ordered showed pulmonary edema possible infiltrate. Changing antibiotic to IV cefepime. IV Lasix. 80 mg every 8, 2 doses. Earlier care was discussed with the patient and at the bedside. July 29: Abdominal pain still present. No response to suppository yesterday. Breathing better with IV Lasix. On ice chips. Discussed with the patient has been. No nausea vomiting. Started on IV cefepime yesterday for pneumonia July 30: Patient up in a chair. Delirious. She thinks she is us come back from her doctor's appointment. She is at her brother's house. Dilaudid discontinued. Abdomen still distended. X-ray showing ileus. Discussed with surgery. July 31: No flatus. Some decrease in abdominal pain. TPN lipids. Answering questions. Started on clear liquid diet. August 1: Patient has been more awake since narcotics or be discontinued. Tired. Last night PICC line accidentally got pulled out. On his been present for a new one. Tolerating clear liquid. Some flatus. No BM. August 2: Diet. Up in a chair. Had a BM. Advance to full liquids. TPN lipids to continue. August 3: Tolerating some full liquid. In the recliner. Tired. Had a good BM yesterday. Getting TPN and lipids.. August 4: Tolerating full liquid diet. Diet has been advanced. In the recliner. More awake. Had a small BM. Abdominal pain control. Getting TPN and lipids. Discussed with at the bedside. Active Medications Hydrocodone Bitart/Acetaminophen (Hydrocodone/Apap 5-325mg 1 Each Tab) 1 each PO Q4HR PRN PRN Reason: Pain Last Admin: 07/30/21 10:35 Dose: 1 each Documented by: Albuterol/Ipratropium (Ipratropium-Albuterol 3 Ml Neb) 3 ml INHALATION RT-QID PRN PRN Reason: Shortness Of Breath Or Wheezing Benzocaine (Benzocaine [place] 1 Can) 1 spray MUCOUS MEM QID PRN; Protocol PRN Reason: Mouth Irritation Benzocaine/Menthol (Benzocaine/Menthol Lozeng 1 Each Lozenge) 1 each MUCOUS MEM Q4HR PRN PRN Reason: Sore Throat Last Admin: 07/28/21 02:33 Dose: 1 each Documented by: Darbepoetin Juan (Darbepoetin [place] 40 Mcg/0.4 Ml Syringe) 40 mcg SQ Q7D [facility] Last Admin: 08/03/21 12:52 Dose: 40 mcg Documented by: Enoxaparin Sodium (Enoxaparin 30 Mg/0.3 Ml Syringe) 30 mg SQ DAILY [facility] Last Admin: 08/04/21 07:31 Dose: 30 mg Documented by: Furosemide (Furosemide 40 Mg Tab) 40 mg PO DAILY [facility] Last Admin: 08/04/21 07:31 Dose: 40 mg Documented by: Cefepime HCl 1 gm/ Sodium (Chloride) 50 mls @ 12.5 mls/hr IVPB Q12HR [facility] Last Admin: 08/04/21 08:38 Dose: 12.5 mls/hr Documented by: Acetaminophen 680 mg/ IV (Solution) 68 mls @ 272 mls/hr IV Q8H [facility] Last Admin: 08/04/21 07:31 Dose: 272 mls/hr Documented by: Parenteral Vitamin Supplement 10 ml/ Zinc/Copper/Manganese/Selenium 1 ml/ Sodium Acetate 70 meq/ Sodium Chloride 25 meq / Sodium Phosphate 9 mmol/Potassium Chloride 20 meq/Calcium Gluconate 1 gm/ Amino Acids/Dextrose 1,079 mls @ 60 mls/hr IV .BY DURATION [facility] Last Admin: 08/03/21 06:00 Dose: 60 mls/hr Documented by: Sodium Acetate 70 meq/ Sodium Chloride 25 meq/ Sodium Phosphate 9 mmol/ Potassium Chloride 20 meq/ Calcium Gluconate 1 gm/ Amino Acids/Dextrose 1,068 mls @ 60 mls/hr IV .BY DURATION [facility] Last Admin: 08/04/21 01:59 Dose: 60 mls/hr Documented by: Fat Emulsion Intravenous 250 (ml/ IV Solution) 250 mls @ 21 mls/hr IV Q7D [facility] Last Admin: 08/03/21 05:44 Dose: 21 mls/hr Documented by: Insulin Aspart (Insulin Aspart (Novolog) 100 Unit/Ml Vial) 0 unit SQ Q6H [facility]; P rotocol Last Admin: 08/04/21 12:15 Dose: 1 unit Documented by: Metoclopramide HCl (Metoclopramide 5 Mg/Ml 2 Ml Vial) 10 mg IVP Q6HR [facility] Last Admin: 08/04/21 12:15 Dose: 10 mg Documented by: Naloxone HCl (Naloxone 0.4 Mg/Ml 1 Ml Vial) 0.2 mg IV Q2M PRN PRN Reason: Opioid Reversal Ondansetron HCl (Ondansetron 4 Mg/2 Ml Vial) 4 mg IVP Q8HR PRN PRN Reason: Nausea And Vomiting Last Admin: 08/01/21 12:48 Dose: 4 mg Documented by: Oxybutynin Chloride (Oxybutynin Chloride 5 Mg Tab) 5 mg PO BID [facility] Last Admin: 08/04/21 07:31 Dose: 5 mg Documented by: Pantoprazole Sodium (Pantoprazole 40 Mg/10 Ml Vial) 40 mg IVP DAILY [facility] Last Admin: 08/04/21 07:30 Dose: 40 mg Documented by: Sodium Chloride (Sodium Chloride 0.9% Flush 10 Ml Syringe) 10 ml IV Q4HR PRN PRN Reason: PICC Line Sodium Chloride (Sodium Chloride 0.9% Flush 10 Ml Syringe) 10 ml IV WEEKLY [facility] Last Admin: 08/02/21 07:18 Dose: Not Given Documented by: Sodium Chloride (Sodium Chloride 0.9% Flush 10 Ml Syringe) 20 ml IV Q4HR PRN PRN Reason: PICC Line Past medical history to include: COPD, GERD, rheumatoid arthritis, questionable stroke, pubic rami fracture, celiac disease, cerebral aneurysm and AAA repair, lumbar radiculopathy, 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 . Does use a walker to get about . Family history: Throat cancer Physical examination: VITAL SIGNS: 97, 88, 16, 143/78, 98% room air GENERAL: Reclining in chair, appears less tired EYES: Pupils equal. Conjunctiva normal. HEENT: External appearance of nose and ears normal, oral cavity grossly normal. NG tube to suction NECK: JVD not raised; masses not palpable. HEART: First and second heart sounds are normal; no edema. LUNGS: Respiratory rate normal decreased breath sounds ABDOMEN: Soft, no distention. Minimal tender, no guarding rigidity liver spleen not palpable, no masses palpable. Bowel sounds present. PSYCH: Answering simple questions MUSCULOSKELETAL: Evidence of arthritis especially in the hands, INVESTIGATIONS, reviewed in the clinical context: August 04: White count 8.1 hemoglobin 9.2 platelets 724 BUN 37 creatinine 1.25 August 03: White count 10.1 hemoglobin 9.3 platelets and 56 potassium 4.3 BUN 38 cre atinine 1.47 Sodium 133 potassium 4.3 BUN 37 creatinine 1.19 Chest x-ray film personally reviewed by me-[July 17]: Multiple air fluid levels. White count 6.2 hemoglobin 11.8 platelets 228 potassium 4.6 BUN 36 creatinine 1.74 EKG tracing personally reviewed by me-normal sinus rhythm. Rate 84 CT abdomen pelvis without contrast: Chronic diverticulosis. Multiple small bowel fluid levels. Other findings noted. Previous labs: Creatinine 2.04 on January 2021. Assessment and plan: -Acute small bowel obstruction from fibrotic band. . Received IV Zosyn. NG tube discontinued . July 21 underwent abdominal surgery with fibrotic band resected and small bowel resection reattached. -Acute delirium: Improving slowly DC Dilaudid. - postop ileus: Clinical improving Had a BM . Tolerated full liquids. -Probable pneumonia suspected gram-negative organism: IV cefepime -Acute pulmonary edema from IV fluids: Better Received IV Lasix . 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 Improved -TPN and lipids -Moderate protein calorie malnutrition Supplemental nutrition IV -Acute medical debility. PT OT -Full code IV cefepime. TPN and continue. Advance diet to chopped diet discussed with patient and .
--- NOTE | 2021-08-04 14:42 | P.PN ---
Subjective Progress Note Date: 08/04/21 CHIEF COMPLAINT: Abdominal pain HISTORY OF PRESENT ILLNESS: Patient is status post exploratory laparotomy, lysis of adhesions and small bowel resection for small bowel obstruction with adhesions on 07/21/21. Patient is having bowel movements. Denies any nausea or vomiting. Pain is improved. Currently on a full liquid diet. She is receiving TPN. Afebrile. WBC 8.17 he will and 9.2 platelets 724 sodium 138 potassium 3.9 creatinine 1.25 and his and 2.0 Patient seen and examined with Dr. hicks PHYSICAL EXAM: VITAL SIGNS: Reviewed. GENERAL: Well-developed in no acute distress. HEENT: No sclera icterus. Extraocular movements grossly intact. Moist buccal mucosa. Head is atraumatic, normocephalic. ABDOMEN: Soft. Nondistended. Nontender. Incision site clean dry and intact. Dressing did have yellow/brown drainage at the distal aspect NEUROLOGIC: Confused ASSESSMENT: 1. Small bowel obstruction with adhesions status post exploratory laparotomy, lysis of adhesions and small bowel resection 2. Abdominal pain 3. Hypokalemia and hypomagnesemia improved 4. Prolonged Postoperative ileus can be an expected finding 5. Iron deficiency anemia received IV iron 6. Metabolic encephalopathy PLAN: -Advance diet to regular -Patient can be discharged from surgical standpoint when medically clear -continue Reglan for now -Continue supportive care -Continue pain medication as needed -Encouraged patient to use incentive spirometer -Encouraged patient to increase activity level -Patient will require ECF placement at discharge -GI prophylaxis Protonix and DVT prophylaxis Lovenox Physician Purchasing Clerk note has been reviewed by physician. Signing provider agrees with the documented findings, assessment, and plan of care. Objective - Vital Signs Vital signs: Vital Signs Temp 97.0 F L 08/04/21 08:00 Pulse 88 08/04/21 08:00 Resp 16 08/04/21 08:00 BP 143/78 08/04/21 08:00 Pulse Ox 98 08/04/21 08:00 Intake & Output 08/03/21 08/04/21 08/04/21 18:59 06:59 18:59 Output Total 650 400 Balance -650 -400 Output: Urine 650 400 Other: Voiding Method External Catheter # Bowel Movements 1 ABP, PAP, CO, CI - Last Documented Arterial Blood Pressure 154/64 - Labs CBC & Chem 7: 08/04/21 05:00 08/04/21 05:00 Labs: Abnormal Lab Results - Last 24 Hours (Table) 08/03/21 08/04/21 08/04/21 Range/Units 16:29 00:56 05:00 RBC 3.19 L (4.10-5.20) X 10*6/uL Hgb 9.2 L (12.0-15.0) g/dL Hct 30.0 L (37.2-46.3) % MCHC 30.7 L (32.0-37.0) g/dL RDW 15.0 H (11.5-14.5) % Plt Count 724 H (140-440) X 10*3/uL MPV 8.9 L (9.5-12.2) fL BUN (7-17) mg/dL Creatinine (0.52-1.04) mg/dL Glucose (74-99) mg/dL POC Glucose (mg/dL) 177 H 183 H (75-99) mg/dL 08/04/21 08/04/21 08/04/21 Range/Units 05:00 05:50 11:58 RBC (4.10-5.20) X 10*6/uL Hgb (12.0-15.0) g/dL Hct (37.2-46.3) % MCHC (32.0-37.0) g/dL RDW (11.5-14.5) % Plt Count (140-440) X 10*3/uL MPV (9.5-12.2) fL BUN 37 H (7-17) mg/dL Creatinine 1.25 H (0.52-1.04) mg/dL Glucose 154 H (74-99) mg/dL POC Glucose (mg/dL) 251 H 158 H (75-99) mg/dL
[2021-08-04 17:36] LABS: Glucose,Whole Blood 187 mg/dL (75-99)
[2021-08-05 01:01] LABS: Glucose,Whole Blood 216 mg/dL (75-99)
[2021-08-05] MEDS: METOCLOPRAMIDE 5 MG/ML 2 ML VIAL IVP SCH ×4 (01:06→17:13)
[2021-08-05] MEDS: ACETAMINOPHEN IV SCH ×2 (01:06→10:12)
[2021-08-05] MEDS: INSULIN ASPART (NovoLOG) 100 UNIT/ML VIAL SQ SCH ×4 (01:06→17:04)
[2021-08-05 06:23] LABS: Glucose,Whole Blood 181 mg/dL (75-99)
[2021-08-05] MEDS: FUROSEMIDE 40 MG TAB PO SCH (08:57)
[2021-08-05] MEDS: CEFEPIME 1 GM in SODIUM CHLORIDE 0.9% 50 ML IVPB SCH (08:57)
[2021-08-05] MEDS: OXYBUTYNIN CHLORIDE 5 MG TAB PO SCH ×2 (08:57→22:46)
[2021-08-05] MEDS: PANTOPRAZOLE 40 MG/10 ML VIAL IVP SCH (08:57)
[2021-08-05] MEDS: ENOXAPARIN 30 MG/0.3 ML SYRINGE SQ SCH (08:57)
--- NOTE | 2021-08-05 09:50 | P.PN ---
Subjective Patient is seen in follow-up for acute kidney injury. Morning labs pending. Maintained on oral Lasix. Martin catheter removed. Has been voiding. On dysphagia 3 chopped diet now. Also receiving TPN. Surgery following. Hemodynamically stable. No chest pain or shortness of breath. On room air. Denies any pain. Vital signs are stable. General: Awake. No acute distress. HEENT: Head exam is unremarkable. LUNGS: Breath sounds decreased. HEART: Rate and Rhythm are regular. ABDOMEN: Soft, no tenderness. EXTREMITITES: No edema. Objective - Vital Signs Vital signs: Vital Signs Temp 98.7 F 08/05/21 08:00 Pulse 94 08/05/21 08:00 Resp 14 08/05/21 08:00 BP 126/79 08/05/21 08:00 Pulse Ox 94 L 08/05/21 08:00 Intake & Output 08/04/21 08/05/21 08/05/21 18:59 06:59 18:59 Intake Total 1068 Output Total 1000 200 Balance -1000 868 Intake: Intake, IV Titration 1068 Amount Sodium Acetate 70 meq 1068 Sodium Chloride 2.5MEQ/ml Vial 25 meq Sodium Phosphate 9 mmol Potassium Chloride 20 meq Calcium Gluconate 1 gm In Amino Acids 5 %/ Dextrose 20 % 1,000 ml @ 60 mls/hr IV .BY DURATION [facility] Rx#:[id number] Output: Urine 1000 200 Other: Voiding Method External Catheter External Catheter # Bowel Movements 1 1 ABP, PAP, CO, CI - Last Documented Arterial Blood Pressure 154/64 - Labs CBC & Chem 7: 08/04/21 05:00 08/04/21 05:00 Labs: Abnormal Lab Results - Last 24 Hours (Table) 08/04/21 08/04/21 08/04/21 Range/Units 05:00 11:58 17:35 RBC 3.19 L (4.10-5.20) X 10*6/uL Hgb 9.2 L (12.0-15.0) g/dL Hct 30.0 L (37.2-46.3) % MCHC 30.7 L (32.0-37.0) g/dL RDW 15.0 H (11.5-14.5) % Plt Count 724 H (140-440) X 10*3/uL MPV 8.9 L (9.5-12.2) fL POC Glucose (mg/dL) 158 H 187 H (75-99) mg/dL 08/05/21 08/05/21 Range/Units 00:59 06:19 RBC (4.10-5.20) X 10*6/uL Hgb (12.0-15.0) g/dL Hct (37.2-46.3) % MCHC (32.0-37.0) g/dL RDW (11.5-14.5) % Plt Count (140-440) X 10*3/uL MPV (9.5-12.2) fL POC Glucose (mg/dL) 216 H 181 H (75-99) mg/dL Assessment and Plan Plan: Assessment: 1. Acute kidney injury mostly prerenal secondary to hypovolemia and volume depletion. Was receiving Toradol for pain. Creatinine 1.25 yesterday. 2. Chronic kidney disease stage IIIb with baseline creatinine in the range of 1.3 secondary to nephrosclerosis. 3. Benign hypertension. Stable. 4. Small bowel obstruction status post exploratory laparotomy with lysis of adhesions and small bowel resection. Surgery following. 5. Hyponatremia secondary to acute kidney injury and poor solute intake. Better. 6. Anemia. Iron deficiency noted. Status post IV iron. On Aranesp. 7. Volume overload. Improved with diuresis. Plan: Diet/TPN per surgery. Maintain oral Lasix. Avoid nephrotoxins. Avoid NSAIDs. Continue to monitor renal function and urine output. Morning labs pending.
[2021-08-05 10:21] LABS: African American GFR (CKD) 47 (>60 ml/min/1.73 sqM); Anion Gap 10 mmol/L; Blood Urea Nitrogen 45 mg/dL (7-17); Calcium 8.9 mg/dL (8.4-10.2); Carbon Dioxide 23 mmol/L (22-30); Chloride 106 mmol/L (98-107); Glucose 123 mg/dL (74-99); Non-African American GFR(CKD) 41 (>60 ml/min/1.73 sqM); Sodium 139 mmol/L (137-145)
[2021-08-05 10:22] LABS: Magnesium 1.8 mg/dL (1.6-2.3); Phosphorus 2.8 mg/dL (2.5-4.5); Potassium 4.4 mmol/L (3.5-5.1)
[2021-08-05 11:46] LABS: Glucose,Whole Blood 223 mg/dL (75-99)
[2021-08-05] MEDS: ACETAMINOPHEN TAB 325 MG TAB PO SCH ×2 (12:34→17:13)
--- NOTE | 2021-08-05 15:33 | P.PN ---
Subjective Progress Note Date: 08/05/21 CHIEF COMPLAINT: Abdominal pain HISTORY OF PRESENT ILLNESS: Patient is status post exploratory laparotomy, lysis of adhesions and small bowel resection for small bowel obstruction with adhesions on 07/21/21. Patient is having bowel movements. Denies any nausea or vomiting. Pain is improved. Patient is eating only a few bites of her regular diet. She has drank her ensure. Afebrile. Creatinine 1.2 potassium 4.4 mag 1.8 Patient seen and examined with Dr. hicks PHYSICAL EXAM: VITAL SIGNS: Reviewed. GENERAL: Well-developed in no acute distress. HEENT: No sclera icterus. Extraocular movements grossly intact. Moist buccal mucosa. Head is atraumatic, normocephalic. ABDOMEN: Soft. Nondistended. Nontender. Incision site clean dry and intact. NEUROLOGIC: Confused ASSESSMENT: 1. Small bowel obstruction with adhesions status post exploratory laparotomy, lysis of adhesions and small bowel resection 2. Abdominal pain 3. Hypokalemia and hypomagnesemia improved 4. Prolonged Postoperative ileus can be an expected finding 5. Iron deficiency anemia received IV iron 6. Metabolic encephalopathy PLAN: -Continue regular diet -Encouraged patient to increase oral intake -Continue TPN until intake increases -continue Reglan for now -Continue supportive care -Continue pain medication as needed -Encouraged patient to use incentive spirometer -Encouraged patient to increase activity level -Patient will require ECF placement at discharge -GI prophylaxis Protonix and DVT prophylaxis Lovenox Physician Dramatic Art Teacher note has been reviewed by physician. Signing provider agrees with the documented findings, assessment, and plan of care. Objective - Vital Signs Vital signs: Vital Signs Temp 98.7 F 08/05/21 08:00 Pulse 94 08/05/21 08:00 Resp 14 08/05/21 08:00 BP 126/79 08/05/21 08:00 Pulse Ox 94 L 08/05/21 08:00 Intake & Output 08/04/21 08/05/21 08/05/21 18:59 06:59 18:59 Intake Total 1068 Output Total 1000 200 Balance -1000 868 Weight 46 kg Intake: Intake, IV Titration 1068 Amount Sodium Acetate 70 meq 1068 Sodium Chloride 2.5MEQ/ml Vial 25 meq Sodium Phosphate 9 mmol Potassium Chloride 20 meq Calcium Gluconate 1 gm In Amino Acids 5 %/ Dextrose 20 % 1,000 ml @ 60 mls/hr IV .BY DURATION [facility] Rx#:[id number] Output: Urine 1000 200 Other: Voiding Method External Catheter External Catheter # Bowel Movements 1 1 ABP, PAP, CO, CI - Last Documented Arterial Blood Pressure 154/64 - Labs CBC & Chem 7: 08/04/21 05:00 08/05/21 09:26 Labs: Abnormal Lab Results - Last 24 Hours (Table) 08/04/21 08/05/21 08/05/21 Range/Units 17:35 00:59 06:19 BUN (7-17) mg/dL Creatinine (0.52-1.04) mg/dL Glucose (74-99) mg/dL POC Glucose (mg/dL) 187 H 216 H 181 H (75-99) mg/dL 08/05/21 08/05/21 Range/Units 09:26 11:45 BUN 45 H (7-17) mg/dL Creatinine 1.20 H (0.52-1.04) mg/dL Glucose 123 H (74-99) mg/dL POC Glucose (mg/dL) 223 H (75-99) mg/dL
[2021-08-05 16:55] LABS: Glucose,Whole Blood 111 mg/dL (75-99)
--- NOTE | 2021-08-05 20:36 | P.PN ---
Progress Note - Text Progress Note Date: 08/05/21 Chief Complaint: Abdominal pain History of presenting complaint: This is a 85-year-old patient of Dr. Johnson. Chronic stable medical conditions include COPD, GERD, rheumatoid arthritis, celiac disease, chronic urinary incontinence, lumbar radiculopathy , diverticulosis. Patient does use a walker. She was admitted here in January 2021 with severe bowel spasms. Patient yesterday after started having increasing abdominal pain across. Leg cramping. Along with nausea vomiting. Not able to keep anything down. [place] hot. Normally has a bowel movement every other day. Had a bowel movement yesterday. No improvement. Computed tomography scan of the ER showed air-fluid levels. Made nothing by mouth. Surgery consulted. Admitted with acute possible colitis with severe bowel spasms. Subsequent x- rays showing worsening bowel obstruction. July 21 patient underwent surgical intervention by Dr. Stauffer. Fibrotic band was causing small bowel obstruction. Patient also treated with TPN and lipids. July 21 through July 25 patient was followed by [facility] hospitalists. July 26: Patient is laying in bed bed. Tired. Some abdominal pain. Had a bowel movement. Liquid diet. No nausea vomiting. July 27: Abdominal pain. No nausea vomiting. No BM. Made nothing by mouth by surgery. Ordered chewing gum. TPN and lipids to continue. Tired. July 28: Abdominal pain. Distention. No BM. Abdominal x-ray is reviewed. Ileus. Surgery informed. Dr. Stauffer ordered Dulcolax. By late in the evening patient not had a bowel movement. Patient be short of breath. Chest x- ray ordered showed pulmonary edema possible infiltrate. Changing antibiotic to IV cefepime. IV Lasix. 80 mg every 8, 2 doses. Earlier care was discussed with the patient and at the bedside. July 29: Abdominal pain still present. No response to suppository yesterday. Breathing better with IV Lasix. On ice chips. Discussed with the patient has been. No nausea vomiting. Started on IV cefepime yesterday for pneumonia July 30: Patient up in a chair. Delirious. She thinks she is us come back from her doctor's appointment. She is at her brother's house. Dilaudid discontinued. Abdomen still distended. X-ray showing ileus. Discussed with surgery. July 31: No flatus. Some decrease in abdominal pain. TPN lipids. Answering questions. Started on clear liquid diet. August 1: Patient has been more awake since narcotics or be discontinued. Tired. Last night PICC line accidentally got pulled out. On his been present for a new one. Tolerating clear liquid. Some flatus. No BM. August 2: Diet. Up in a chair. Had a BM. Advance to full liquids. TPN lipids to continue. August 3: Tolerating some full liquid. In the recliner. Tired. Had a good BM yesterday. Getting TPN and lipids.. August 4: Tolerating full liquid diet. Diet has been advanced. In the recliner. More awake. Had a small BM. Abdominal pain control. Getting TPN and lipids. Discussed with at the bedside. August 5: Tolerating some diet with encouragement. Diet. at the bedside. Pain control. We'll start weaning TPN lipids. Overall prognosis guarded. Active Medications Acetaminophen (Acetaminophen Tab 325 Mg Tab) 650 mg PO Q6HR [facility] Last Admin: 08/05/21 17:13 Dose: 650 mg Documented by: Hydrocodone Bitart/Acetaminophen (Hydrocodone/Apap 5-325mg 1 Each Tab) 1 each PO Q4HR PRN PRN Reason: Pain Last Admin: 07/30/21 10:35 Dose: 1 each Documented by: Albuterol/Ipratropium (Ipratropium-Albuterol 3 Ml Neb) 3 ml INHALATION RT-QID PRN PRN Reason: Shortness Of Breath Or Wheezing Benzocaine (Benzocaine [place] 1 Can) 1 spray MUCOUS MEM QID PRN; Protocol PRN Reason: Mouth Irritation Benzocaine/Menthol (Benzocaine/Menthol Lozeng 1 Each Lozenge) 1 each MUCOUS MEM Q4HR PRN PRN Reason: Sore Throat Last Admin: 07/28/21 02:33 Dose: 1 each Documented by: Darbepoetin Juan (Darbepoetin Juan 40 Mcg/0.4 Ml Syringe) 40 mcg SQ Q7D [facility] Last Admin: 08/03/21 12:52 Dose: 40 mcg Documented by: Enoxaparin Sodium (Enoxaparin 30 Mg/0.3 Ml Syringe) 30 mg SQ DAILY [facility] Last Admin: 08/05/21 08:57 Dose: 30 mg Documented by: Furosemide (Furosemide 40 Mg Tab) 40 mg PO DAILY [facility] Last Admin: 08/05/21 08:57 Dose: 40 mg Documented by: Cefepime HCl 1 gm/ Sodium (Chloride) 50 mls @ 12.5 mls/hr IVPB Q12HR [facility] Last Admin: 08/05/21 08:57 Dose: 12.5 mls/hr Documented by: Parenteral Vitamin Supplement 10 ml/ Zinc/Copper/Manganese/Selenium 1 ml/ Sodium Acetate 70 meq/ Sodium Chloride 25 meq / Sodium Phosphate 9 mmol/Potassium Chloride 20 meq/Calcium Gluconate 1 gm/ Amino Acids/Dextrose 1,079 mls @ 60 mls/hr IV .BY DURATION [facility] Last Admin: 08/05/21 14:32 Dose: Not Given Documented by: Sodium Acetate 70 meq/ Sodium Chloride 25 meq/ Sodium Phosphate 9 mmol/ Potassium Chloride 20 meq/ Calcium Gluconate 1 gm/ Amino Acids/Dextrose 1,068 mls @ 60 mls/hr IV .BY DURATION [facility] Last Admin: 08/04/21 21:04 Dose: 60 mls/hr Documented by: Insulin Aspart (Insulin Aspart (Novolog) 100 Unit/Ml Vial) 0 unit SQ Q6H [facility]; Protocol Last Admin: 08/05/21 17:04 Dose: Not Given Documented by: Metoclopramide HCl (Metoclopramide 5 Mg/Ml 2 Ml Vial) 10 mg IVP Q6HR [facility] Last Admin: 08/05/21 17:13 Dose: 10 mg Documented by: Naloxone HCl (Naloxone 0.4 Mg/Ml 1 Ml Vial) 0.2 mg IV Q2M PRN PRN Reason: Opioid Reversal Ondansetron HCl (Ondansetron 4 Mg/2 Ml Vial) 4 mg IVP Q8HR PRN PRN Reason: Nausea And Vomiting Last Admin: 08/01/21 12:48 Dose: 4 mg Documented by: Oxybutynin Chloride (Oxybutynin Chloride 5 Mg Tab) 5 mg PO BID [facility] Last Admin: 08/05/21 08:57 Dose: 5 mg Documented by: Pantoprazole Sodium (Pantoprazole 40 Mg/10 Ml Vial) 40 mg IVP DAILY [facility] Last Admin: 08/05/21 08:57 Dose: 40 mg Documented by: Sodium Chloride (Sodium Chloride 0.9% Flush 10 Ml Syringe) 10 ml IV Q4HR PRN PRN Reason: PICC Line Sodium Chloride (Sodium Chloride 0.9% Flush 10 Ml Syringe) 10 ml IV WEEKLY [facility] Last Admin: 08/02/21 07:18 Dose: Not Given Documented by: Sodium Chloride (Sodium Chloride 0.9% Flush 10 Ml Syringe) 20 ml IV Q4HR PRN PRN Reason: PICC Line Past medical history to include: COPD, GERD, rheumatoid arthritis, questionable stroke, pubic rami fracture, celiac disease, cerebral aneurysm and AAA repair, lumbar radiculopathy, 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 . Does use a walker to get about . Family history: Throat cancer Physical examination: VITAL SIGNS: 99.4, 104, 14, 100/62, 97% room air GENERAL: Reclining in chair, tired EYES: Pupils equal. Conjunctiva normal. HEENT: External appearance of nose and ears normal, oral cavity grossly normal. NG tube to suction NECK: JVD not raised; masses not palpable. HEART: First and second heart sounds are normal; no edema. LUNGS: Respiratory rate normal decreased breath sounds ABDOMEN: Soft, no distention. Minimal tender, no guarding rigidity liver spleen not palpable, no masses palpable. Bowel sounds present. PSYCH: Answering simple questions MUSCULOSKELETAL: Evidence of arthritis especially in the hands, INVESTIGATIONS, reviewed in the clinical context: August 05: Potassium 4.4 creatinine 1.2 August 04: White count 8.1 hemoglobin 9.2 platelets 724 BUN 37 creatinine 1.25 August 03: White count 10.1 hemoglobin 9.3 platelets and 56 potassium 4.3 BUN 38 creatinine 1.47 Sodium 133 potassium 4.3 BUN 37 creatinine 1.19 Chest x-ray film personally reviewed by me-[July 17]: Multiple air fluid levels. White count 6.2 hemoglobin 11.8 platelets 228 potassium 4.6 BUN 36 creatinine 1.74 EKG tracing personally reviewed by me-normal sinus rhythm. Rate 84 CT abdomen pelvis without contrast: Chronic diverticulosis. Multiple small bowel fluid levels. Other findings noted. Previous labs: Creatinine 2.04 on January 2021. Assessment and plan: -Acute small bowel obstruction from fibrotic band. . Received IV Zosyn. NG tube discontinued . July 21 underwent abdominal surgery with fibrotic band resected and small bowel resection reattached. -Acute delirium: Improving slowly DC Dilaudid. - postop ileus: Clinical improving Had a BM . Chopped diet -Probable pneumonia suspected gram-negative organism: IV cefepime. Changed to Augmentin -Acute pulmonary edema from IV fluids: Better Received IV Lasix . 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 Improved -TPN and lipids -Moderate protein calorie malnutrition Supplemental nutrition IV -Acute medical debility. PT OT -Full code IV cefepime. Tapered off TPN and lipids. Changed to by mouth Augmentin. Discussed with patient doesn't of the bedside.
[2021-08-05] MEDS: AMOXIC-POT CLAV 500-125 MG 1 EACH TAB PO SCH (22:46)
[2021-08-06] MEDS: INSULIN ASPART (NovoLOG) 100 UNIT/ML VIAL SQ SCH ×3 (01:02→12:04)
[2021-08-06] MEDS: METOCLOPRAMIDE 5 MG/ML 2 ML VIAL IVP SCH ×3 (01:06→13:33)
[2021-08-06] MEDS: ACETAMINOPHEN TAB 325 MG TAB PO SCH ×3 (01:08→12:05)
[2021-08-06 01:16] LABS: Glucose,Whole Blood 129 mg/dL (75-99)
[2021-08-06 06:08] LABS: Glucose,Whole Blood 98 mg/dL (75-99)
[2021-08-06 06:40] LABS: African American GFR (CKD) 43 (>60 ml/min/1.73 sqM); Anion Gap 7 mmol/L; Blood Urea Nitrogen 42 mg/dL (7-17); Calcium 9.1 mg/dL (8.4-10.2); Carbon Dioxide 26 mmol/L (22-30); Chloride 102 mmol/L (98-107); Glucose 101 mg/dL (74-99); Magnesium 1.8 mg/dL (1.6-2.3); Non-African American GFR(CKD) 37 (>60 ml/min/1.73 sqM); Phosphorus 2.8 mg/dL (2.5-4.5); Potassium 4.2 mmol/L (3.5-5.1); Sodium 135 mmol/L (137-145)
[2021-08-06 07:00] LABS: Glucose,Whole Blood 97 mg/dL (75-99)
[2021-08-06 08:33] VITALS: RESP 16
[2021-08-06] MEDS: PANTOPRAZOLE 40 MG/10 ML VIAL IVP SCH (09:18)
[2021-08-06] MEDS: FUROSEMIDE 40 MG TAB PO SCH (10:02)
[2021-08-06] MEDS: OXYBUTYNIN CHLORIDE 5 MG TAB PO SCH (10:02)
[2021-08-06] MEDS: AMOXIC-POT CLAV 500-125 MG 1 EACH TAB PO SCH (10:02)
[2021-08-06] MEDS: ENOXAPARIN 30 MG/0.3 ML SYRINGE SQ SCH (10:02)
[2021-08-06 11:30] LABS: Glucose,Whole Blood 106 mg/dL (75-99)
--- NOTE | 2021-08-06 12:21 | P.PN ---
Subjective Patient is seen in follow-up for acute kidney injury. Renal function fairly stable. Maintained on oral Lasix. Martin catheter removed. Has been voiding. On dysphagia 3 chopped diet now. Also receiving TPN. Surgery following. Hemodynamically stable. No chest pain or shortness of breath. On room air. Denies any pain. Possibly going to rehab today. Vital signs are stable. General: Awake. No acute distress. HEENT: Head exam is unremarkable. LUNGS: Breath sounds decreased. HEART: Rate and Rhythm are regular. ABDOMEN: Soft, no tenderness. EXTREMITITES: No edema. Objective - Vital Signs Vital signs: Vital Signs Temp 98.0 F 08/06/21 08:00 Pulse 95 08/06/21 08:00 Resp 16 08/06/21 08:00 BP 110/63 08/06/21 08:00 Pulse Ox 95 08/06/21 08:00 Intake & Output 08/05/21 08/06/21 08/06/21 18:59 06:59 18:59 Intake Total 660 1068 Output Total 750 Balance 660 318 Weight 46 kg 46 kg Intake: Intake, IV Titration 660 1068 Amount Mvi, Adult No.4 with Vit 660 K 10 ml Trace (Conc-1Ml/ Dose) 1 ml Sodium Acetate 70 meq Sodium Chloride 2 .5MEQ/ml Vial 25 meq Sodium Phosphate 9 mmol Potassium Chloride 20 meq Calcium Gluconate 1 gm In Amino Acids 5 %/ Dextrose 20 % 1,000 ml @ 60 mls/hr IV .BY DURATION [facility] Rx#:[id number] Sodium Acetate 70 meq 1068 Sodium Chloride 2.5MEQ/ml Vial 25 meq Sodium Phosphate 9 mmol Potassium Chloride 20 meq Calcium Gluconate 1 gm In Amino Acids 5 %/ Dextrose 20 % 1,000 ml @ 60 mls/hr IV .BY DURATION [facility] Rx#:[id number] Output: Urine 750 Other: Voiding Method External Catheter External Catheter External Catheter # Bowel Movements 1 ABP, PAP, CO, CI - Last Documented Arterial Blood Pressure 154/64 - Labs CBC & Chem 7: 08/04/21 05:00 08/06/21 06:02 Labs: Abnormal Lab Results - Last 24 Hours (Table) 08/05/21 08/06/21 08/06/21 Range/Units 16:52 01:06 06:02 Sodium (137-145) mmol/L BUN (7-17) mg/dL Creatinine (0.52-1.04) mg/dL Glucose (74-99) mg/dL POC Glucose (mg/dL) 111 H 129 H (75-99) mg/dL Procalcitonin 0.52 H (0.02-0.09) ng/mL 08/06/21 08/06/21 Range/Units 06:02 11:29 Sodium 135 L (137-145) mmol/L BUN 42 H (7-17) mg/dL Creatinine 1.30 H (0.52-1.04) mg/dL Glucose 101 H (74-99) mg/dL POC Glucose (mg/dL) 106 H (75-99) mg/dL Procalcitonin (0.02-0.09) ng/mL Assessment and Plan Plan: Assessment: 1. Acute kidney injury mostly prerenal secondary to hypovolemia and volume depletion. Was receiving Toradol for pain. Creatinine 1.3 today. 2. Chronic kidney disease stage IIIb with baseline creatinine in the range of 1.3 secondary to nephrosclerosis. 3. Benign hypertension. Stable. 4. Small bowel obstruction status post exploratory laparotomy with lysis of adhesions and small bowel resection. Surgery following. 5. Hyponatremia secondary to acute kidney injury and poor solute intake. 6. Anemia. Iron deficiency noted. Status post IV iron. On Aranesp. 7. Volume overload. Improved with diuresis. Plan: Diet/TPN per surgery. Maintain oral Lasix. Avoid nephrotoxins. Avoid NSAIDs. Continue to monitor renal function and urine output. Plan to go to rehab today. Follow up outpatient in 1-2 weeks
--- NOTE | 2021-08-06 13:47 | P.DS ---
Providers Date of admission: 07/12/21 23:26 Expected date of discharge: 08/06/21 Attending physician: Dileep Wilson Consults: 07/12/21 22:26 Consult Physician Urgent Consulting Provider: Darrell Stauffer Consult Reason/Comments: Ileus Do you want consulting provider notified?: Yes, Notify in am 07/19/21 11:14 Consult Physician Routine Consulting Provider: Joyce Quinones Consult Reason/Comments: Need PICC line, GFR 32 Do you want consulting provider notified?: Yes 07/21/21 09:06 Consult Physician Urgent Consulting Provider: Nino Arguello Consult Reason/Comments: pre-op eval Do you want consulting provider notified?: Yes 07/21/21 16:08 Consult Physician Stat Consulting Provider: Fernando Paul Consult Reason/Comments: ICU Management Do you want consulting provider notified?: Already Contacted Primary care physician: [facility] Course: Chief Complaint: Abdominal pain History of presenting complaint: This is a 85-year-old patient of Dr. Johnson. Chronic stable medical conditions include COPD, GERD, rheumatoid arthritis, celiac disease, chronic urinary incontinence, lumbar radiculopathy , diverticulosis. Patient does use a walker. She was admitted here in January 2021 with severe bowel spasms. Patient yesterday after started having increasing abdominal pain across. Leg cramping. Along with nausea vomiting. Not able to keep anything down. [place] hot. Normally has a bowel movement every other day. Had a bowel movement yesterday. No improvement. Computed tomography scan of the ER showed air-fluid levels. Made nothing by mouth. Surgery consulted. Admitted with acute possible colitis with severe bowel spasms. Subsequent x- rays showing worsening bowel obstruction. July 21 patient underwent surgical intervention by Dr. Stauffer. Fibrotic band was causing small bowel obstruction. Patient also treated with TPN and lipids. Patient subsequently also, pneumonia. For which she received IV cefepime. Also had pulmonary edema for which received IV Lasix. Had developed some postop ileus. Did not is discontinued. Patient received TPN and lipids. August 06: Tolerating some diet. Having bowel movement. Abdomen soft. It was discussed with the patient and at the bedside. At the telephonic case manager. We will go to rehab today. Cleared by surgery. Completed a short course of antibiotic. 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 . Does use a walker to get about . Family history: Throat cancer Physical examination: VITAL SIGNS: 98, 95, 16, 110/63, 95% room air GENERAL: Reclining in chair, tired EYES: Pupils equal. Conjunctiva normal. HEENT: External appearance of nose and ears normal, oral cavity grossly normal. NG tube to suction NECK: JVD not raised; masses not palpable. HEART: First and second heart sounds are normal; no edema. LUNGS: Respiratory rate normal decreased breath sounds ABDOMEN: Soft, no distention. Minimal tender, no guarding rigidity liver spleen not palpable, no masses palpable. Bowel sounds present. PSYCH: Answering simple questions MUSCULOSKELETAL: Evidence of arthritis especially in the hands, INVESTIGATIONS, reviewed in the clinical context: August 06: Sodium 135 potassium 4.2 BUN 42 creatinine 1.30 procalcitonin 0.5 to Chest x-ray film personally reviewed by me-[July 17]: Multiple air fluid levels. White count 6.2 hemoglobin 11.8 platelets 228 potassium 4.6 BUN 36 creatinine 1.74 EKG tracing personally reviewed by me-normal sinus rhythm. Rate 84 CT abdomen pelvis without contrast: Chronic diverticulosis. Multiple small bowel fluid levels. Other findings noted. Previous labs: Creatinine 2.04 on January 2021. Assessment and plan: -Acute small bowel obstruction from fibrotic band. . Received IV Zosyn. NG tube discontinued . July 21 underwent abdominal surgery with fibrotic band resected and small bowel resection reattached. -Acute delirium: Better DC Dilaudid. - postop ileus: Improved Had a BM . Chopped diet -Probable pneumonia suspected gram-negative organism: IV cefepime. Changed to Augmentin -Acute pulmonary edema from IV fluids: Better Received IV Lasix . On by mouth Lasix-discontinued -COPD, in a previous smoker Albuterol when necessary -Chronic kidney disease stage III from nephrosclerosis Follow renal function -GERD Omeprazole 20 mg twice a day -Rheumatoid arthritis Pain control -Essential hypertension, Catapres patch 0.2 -Chronic celiac disease Gluten-free diet -Hypoglycemia from poor oral intake: Better -Overactive bladder causing incontinence uses a brief - Colonic diverticulosis, Follow clinically -Metabolic acidosis from renal failure: Better IV bicarbonate drip-stop -Acute kidney injury, prerenal: Better Admission creatinine 1.85. Improved -TPN and lipids -Moderate protein calorie malnutrition Supplemental nutrition IV -Acute medical debility. PT OT -Full code Disposition: Rehab at [facility] in [facility] Plan - Discharge Summary Discharge Rx Participant: No New Discharge Prescriptions: New Amoxic-Pot Clav 500-125 mg [Augmentin 500-125 mg] 1 each PO Q12HR #10 tab Ipratropium-Albuterol Nebulize [Duoneb 0.5 mg-3 mg/3 ml Soln] 3 ml INHALATION RT-QID PRN ml PRN Reason: Shortness Of Breath Or Wheezing Pediatric Multivitamin No.30 [Multivitamin Children's Gummies] 1 tab PO BID #1 tab Acetaminophen Tab [Tylenol] 650 mg PO Q6HR tab Continue Oxybutynin Chloride [Ditropan] 5 mg PO BID #60 tab Omeprazole 20 mg PO AC-BID #60 cap Discharge Medication List Omeprazole 20 mg PO AC-BID #60 cap 06/30/20 [Rx] Oxybutynin Chloride [Ditropan] 5 mg PO BID #60 tab 06/30/20 [Rx] Acetaminophen Tab [Tylenol] 650 mg PO Q6HR tab 08/06/21 [Rx] Amoxic-Pot Clav 500-125 mg [Augmentin 500-125 mg] 1 each PO Q12HR #10 tab 08/06/21 [Rx] Ipratropium-Albuterol Nebulize [Duoneb 0.5 mg-3 mg/3 ml Soln] 3 ml INHALATION RT-QID PRN ml 08/06/21 [Rx] Pediatric Multivitamin No.30 [Multivitamin Children's Gummies] 1 tab PO BID #1 tab 08/06/21 [Rx] Follow up Appointment(s)/Referral(s): Justyn Johnson DO [Primary Care Provider] - 1-2 days [facility], [NON-STAFF] - 1 Week Darrell Stauffer MD [STAFF PHYSICIAN] - 1 Week Patient Instructions/Handouts: Acute Abdominal Pain (DC)
--- NOTE | 2021-08-06 14:02 | P.PN ---
Subjective Progress Note Date: 08/06/21 CHIEF COMPLAINT: Abdominal pain HISTORY OF PRESENT ILLNESS: Patient is status post exploratory laparotomy, lysis of adhesions and small bowel resection for small bowel obstruction with adhesions on 07/21/21. Patient is having bowel movements. Denies any nausea or vomiting. Pain has improved. They've weaned off the TPN today. Patient has been able to drink her Ensure and a few bites of food. She is scheduled for discharge to ECF today. Afebrile Patient seen and examined with Dr. hicks PHYSICAL EXAM: VITAL SIGNS: Reviewed. GENERAL: Well-developed in no acute distress. HEENT: No sclera icterus. Extraocular movements grossly intact. Moist buccal mucosa. Head is atraumatic, normocephalic. ABDOMEN: Soft. Nondistended. Nontender. Incision site clean dry and intact. NEUROLOGIC: Confused ASSESSMENT: 1. Small bowel obstruction with adhesions status post exploratory laparotomy, lysis of adhesions and small bowel resection 2. Abdominal pain 3. Hypokalemia and hypomagnesemia improved 4. Prolonged Postoperative ileus can be an expected finding 5. Iron deficiency anemia received IV iron 6. Metabolic encephalopathy PLAN: -Patient can be discharged from surgical standpoint -Recommend the patient showers daily -Continue regular diet -Encouraged patient to increase activity level -GI prophylaxis Protonix and DVT prophylaxis Lovenox Physician Amphibian Crewmember note has been reviewed by physician. Signing provider agrees with the documented findings, assessment, and plan of care. Objective - Vital Signs Vital signs: Vital Signs Temp 98.0 F 08/06/21 08:00 Pulse 95 08/06/21 08:00 Resp 16 08/06/21 08:00 BP 110/63 08/06/21 08:00 Pulse Ox 95 08/06/21 08:00 Intake & Output 08/05/21 08/06/21 08/06/21 18:59 06:59 18:59 Intake Total 660 1068 Output Total 750 Balance 660 318 Weight 46 kg 46 kg Intake: Intake, IV Titration 660 1068 Amount Mvi, Adult No.4 with Vit 660 K 10 ml Trace (Conc-1Ml/ Dose) 1 ml Sodium Acetate 70 meq Sodium Chloride 2 .5MEQ/ml Vial 25 meq Sodium Phosphate 9 mmol Potassium Chloride 20 meq Calcium Gluconate 1 gm In Amino Acids 5 %/ Dextrose 20 % 1,000 ml @ 60 mls/hr IV .BY DURATION [facility] Rx#:[id number] Sodium Acetate 70 meq 1068 Sodium Chloride 2.5MEQ/ml Vial 25 meq Sodium Phosphate 9 mmol Potassium Chloride 20 meq Calcium Gluconate 1 gm In Amino Acids 5 %/ Dextrose 20 % 1,000 ml @ 60 mls/hr IV .BY DURATION [facility] Rx#:[id number] Output: Urine 750 Other: Voiding Method External Catheter External Catheter External Catheter # Bowel Movements 1 ABP, PAP, CO, CI - Last Documented Arterial Blood Pressure 154/64 - Labs CBC & Chem 7: 08/04/21 05:00 08/06/21 06:02 Labs: Abnormal Lab Results - Last 24 Hours (Table) 08/05/21 08/06/21 08/06/21 Range/Units 16:52 01:06 06:02 Sodium (137-145) mmol/L BUN (7-17) mg/dL Creatinine (0.52-1.04) mg/dL Glucose (74-99) mg/dL POC Glucose (mg/dL) 111 H 129 H (75-99) mg/dL Procalcitonin 0.52 H (0.02-0.09) ng/mL 08/06/21 08/06/21 Range/Units 06:02 11:29 Sodium 135 L (137-145) mmol/L BUN 42 H (7-17) mg/dL Creatinine 1.30 H (0.52-1.04) mg/dL Glucose 101 H (74-99) mg/dL POC Glucose (mg/dL) 106 H (75-99) mg/dL Procalcitonin (0.02-0.09) ng/mL
[2021-08-06 14:45] VITALS: BP 104/69; PULSE 80; TEMP 97.9
== END 2021-08-06 16:33 | DRG 329 ==
LOC: EC 17:52 → 4SSUR 23:26 → 5NMEDONC 07-13 22:12 → 2SICU 07-21 16:33 → 4SSUR 07-22 17:25
PROVIDERS: ADMIT Hospitalist; ATTEND Hospitalist
PROC: 0D9670Z Drainage of Stomach with Drainage Device, Via Natural or Artificial Opening (ICD-10-PCS; 2021-07-14)
PROC: 3E0436Z Introduction of Nutritional Substance into Central Vein, Percutaneous Approach (ICD-10-PCS; 2021-07-19)
PROC: 02HV33Z Insertion of Infusion Device into Superior Vena Cava, Percutaneous Approach (ICD-10-PCS; 2021-07-19)
PROC: 0DB80ZZ Excision of Small Intestine, Open Approach (ICD-10-PCS; principal; 2021-07-21 13:00)
PROC: 02HV33Z Insertion of Infusion Device into Superior Vena Cava, Percutaneous Approach (ICD-10-PCS; 2021-08-02)
DX: K56.52 Intestinal adhesions [bands] with complete obstruction (principal); J15.6 Pneumonia due to other Gram-negative bacteria; J96.01 Acute respiratory failure with hypoxia; G93.41 Metabolic encephalopathy; I50.33 Acute on chronic diastolic (congestive) heart failure; R64 Cachexia; E44.0 Moderate protein-calorie malnutrition; N17.9 Acute kidney failure, unspecified; E87.2 Acidosis; I13.0 Hypertensive heart and chronic kidney disease with heart failure and stage 1 through stage 4 chronic kidney disease, or unspecified chronic kidney disease; E87.1 Hypo-osmolality and hyponatremia; J44.0 Chronic obstructive pulmonary disease with (acute) lower respiratory infection; Z68.1 Body mass index [BMI] 19.9 or less, adult; F03.90 Unspecified dementia, unspecified severity, without behavioral disturbance, psychotic disturbance, mood disturbance, and anxiety; N18.32 Chronic kidney disease, stage 3b; M06.9 Rheumatoid arthritis, unspecified; I73.9 Peripheral vascular disease, unspecified; K56.7 Ileus, unspecified; K90.0 Celiac disease; R13.10 Dysphagia, unspecified; E87.6 Hypokalemia; E16.2 Hypoglycemia, unspecified; D50.9 Iron deficiency anemia, unspecified; E86.1 Hypovolemia; I08.1 Rheumatic disorders of both mitral and tricuspid valves; K21.9 Gastro-esophageal reflux disease without esophagitis; R32 Unspecified urinary incontinence; N32.81 Overactive bladder; L30.9 Dermatitis, unspecified; K57.30 Diverticulosis of large intestine without perforation or abscess without bleeding; M54.16 Radiculopathy, lumbar region; R74.8 Abnormal levels of other serum enzymes; Z79.899 Other long term (current) drug therapy; Z87.891 Personal history of nicotine dependence; Z90.49 Acquired absence of other specified parts of digestive tract; Z90.710 Acquired absence of both cervix and uterus; Z87.19 Personal history of other diseases of the digestive system; Z87.42 Personal history of other diseases of the female genital tract; Z86.79 Personal history of other diseases of the circulatory system; Z86.73 Personal history of transient ischemic attack (TIA), and cerebral infarction without residual deficits; Z87.01 Personal history of pneumonia (recurrent); Z87.81 Personal history of (healed) traumatic fracture; Z91.81 History of falling; Z85.828 Personal history of other malignant neoplasm of skin; Z87.440 Personal history of urinary (tract) infections; Z86.19 Personal history of other infectious and parasitic diseases; Z85.528 Personal history of other malignant neoplasm of kidney; Z98.42 Cataract extraction status, left eye; Z98.41 Cataract extraction status, right eye; Z86.69 Personal history of other diseases of the nervous system and sense organs; Z98.890 Other specified postprocedural states; Z88.5 Allergy status to narcotic agent; Z80.8 Family history of malignant neoplasm of other organs or systems; Z83.79 Family history of other diseases of the digestive system
CPT/HCPCS: 36415; 36573; 71045; 71046; 74018; 74019; 74176; 76705; 78226; 80048; 80053; 81001; 82330; 82728; 83540; 83550; 83605; 83690; 83735; 84100; 84145; 84478; 84484; 85025; 85027; 85610; 85730; 86850; 86900; 86901; 88307; 93005; 93306; 94760; 96361; 96365; 96366; 96367; 96372; 96375; 96376; 99285

== ENCOUNTER 2021-10-24 09:18 | Inpatient (IN) | payer MEDICARE ==
[2021-10-24] MEDS ORDERED: SODIUM CHLORIDE 0.9% 1,000 ML IV STA (09:31)
--- NOTE | 2021-10-24 09:34 | ED ---
General Adult HPI - General Chief complaint: Urogenital Stated complaint: dementia Time Seen by Provider: 10/24/21 09:18 Source: patient, EMS, RN notes reviewed, old records reviewed Mode of arrival: EMS Limitations: altered mental status - History of Present Illness Initial comments: 86-year-old female with a history of multiple medical issues including inability to ambulate at this time who was brought in by EMS at the behest of the patient's for evaluation for placement in a alf. Apparently the patient's dementia has been getting worse she's unable ambulate or care for herself. No reports of recent fever chills nausea vomiting sweats dysuria hematuria or other symptoms. - Related Data Previous Rx's Medication Instructions Recorded Omeprazole 20 mg PO AC-BID #60 cap 06/30/20 Oxybutynin Chloride [Ditropan] 5 mg PO BID #60 tab 06/30/20 Acetaminophen Tab [Tylenol] 650 mg PO Q6HR tab 08/06/21 Amoxic-Pot Clav 500-125 mg 1 each PO Q12HR #10 tab 08/06/21 [Augmentin 500-125 mg] Ipratropium-Albuterol Nebulize 3 ml INHALATION RT-QID PRN ml 08/06/21 [Duoneb 0.5 mg-3 mg/3 ml Soln] Pediatric Multivitamin No.30 1 tab PO BID #1 tab 08/06/21 [Multivitamin Children's Gummies] Allergies Allergy/AdvReac Type Severity Reaction Status Date / Time gluten Allergy Unknown Verified 10/24/21 09:31 codeine AdvReac Nausea & Verified 10/24/21 09:31 Vomiting Review of Systems ROS Statement: Those systems with pertinent positive or pertinent negative responses have been documented in the HPI. ROS Other: All systems not noted in ROS Statement are negative. Past Medical History Past Medical History: Cancer, COPD, CVA/TIA, GERD/Reflux, Musculoskeletal Disorder, Neurologic Disorder, Pneumonia, Renal Disease, Rheumatoid Arthritis (RA), Skin Disorder Additional Past Medical History / Comment(s): 2016 FALL/LT HIP FX(sx). 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 KIDNEY DX, PAD,"difficulty swallowing", uti-ecoli 2016, over active bladder wears a brief. ESRD History of Any Multi-Drug Resistant Organisms: None Reported Past Surgical History: Appendectomy, Cholecystectomy, Hysterectomy, Orthopedic Surgery Additional Past Surgical History / Comment(s): brain aneursym with surgery and angioplasty, aaa repair also, jani cataract, skin ca removed, lt breast bx and cyst removed, d&c, colonoscopy, orif lt hip, ORIF RT HIP, EGD Past Anesthesia/Blood Transfusion Reactions: No Reported Reaction Past Psychological History: No Psychological Hx Reported Smoking Status: Never smoker Past Alcohol Use History: None Reported Past Drug Use History: None Reported - Past Family History Mother Additional Family Medical History / Comment(s): BOWEL PROBLEMS/DIVERTICULAR DIEASE. LIVED TO BE 96 YEARS OLD Father History Unknown: Yes Additional Family Medical History / Comment(s): IN HIS SLEEEP AT AGE 86 Sister(s) Family Medical History: Cancer Additional Family Medical History / Comment(s): COLON Brother(s) Family Medical History: Cancer Additional Family Medical History / Comment(s): THROAT CANCER General Exam - General Exam Comments Initial Comments: This is a well-developed frail-appearing female was awake alert Limitations: altered mental status General appearance: alert, in no apparent distress Head exam: Present: atraumatic, normocephalic, normal inspection Eye exam: Present: normal appearance, PERRL, EOMI. Absent: scleral icterus, conjunctival injection, periorbital swelling ENT exam: Present: mucous membranes dry Neck exam: Present: normal inspection, full ROM, other (no stridor JVD or bruits). Absent: tenderness, meningismus, lymphadenopathy Respiratory exam: Present: normal lung sounds bilaterally. Absent: respiratory distress, wheezes, rales, rhonchi, stridor Cardiovascular Exam: Present: regular rate, normal rhythm, normal heart sounds. Absent: systolic murmur, diastolic murmur, rubs, gallop, clicks GI/Abdominal exam: Present: soft, normal bowel sounds. Absent: distended, tenderness, guarding, rebound, rigid Extremities exam: Present: normal inspection, full ROM, normal capillary refill. Absent: tenderness, pedal edema, joint swelling, calf tenderness Back exam: Present: normal inspection Neurological exam: Present: alert, oriented X3, CN II-XII intact Psychiatric exam: Present: normal affect, normal mood Skin exam: Present: warm, dry, intact, normal color. Absent: rash Course Vital Signs 10/24/21 10/24/21 09:28 13:00 Temperature 97.3 F L 97.2 F L Pulse Rate 84 86 Respiratory 16 16 Rate Blood Pressure 142/82 109/61 O2 Sat by Pulse 96 97 Oximetry Medical Decision Making - Medical Decision Making I did discuss findings with the patient patient will be admitted she does demonstrate evidence of dehydration right mid lung pneumonia. Of thrive and dementia. I did discuss case with Dr. Nicholson - Lab Data Result diagrams: 10/24/21 09:47 10/24/21 09:47 Lab Results 10/24/21 10/24/21 10/24/21 Range/Units 09:47 09:47 09:47 WBC 4.7 (3.8-10.6) k/uL RBC 4.11 (3.80-5.40) m/uL Hgb 11.8 (11.4-16.0) gm/dL Hct 37.6 (34.0-46.0) % MCV 91.5 (80.0-100.0) fL MCH 28.8 (25.0-35.0) pg MCHC 31.5 (31.0-37.0) g/dL RDW 14.9 (11.5-15.5) % Plt Count 254 (150-450) k/uL MPV 7.3 Neutrophils % 57 % Lymphocytes % 32 % Monocytes % 6 % Eosinophils % 2 % Basophils % 1 % Neutrophils # 2.7 (1.3-7.7) k/uL Lymphocytes # 1.5 (1.0-4.8) k/uL Monocytes # 0.3 (0-1.0) k/uL Eosinophils # 0.1 (0-0.7) k/uL Basophils # 0.0 (0-0.2) k/uL Sodium 139 (137-145) mmol/L Potassium 5.0 (3.5-5.1) mmol/L Chloride 109 H (98-107) mmol/L Carbon Dioxide 22 (22-30) mmol/L Anion Gap 8 mmol/L BUN 37 H (7-17) mg/dL Creatinine 1.71 H (0.52-1.04) mg/dL Est GFR (CKD-EPI)AfAm 31 (>60 ml/min/1.73 sqM) Est GFR (CKD-EPI)NonAf 27 (>60 ml/min/1.73 sqM) Glucose 98 (74-99) mg/dL Plasma Lactic Acid [place] (0.7-2.0) mmol/L Calcium 9.5 (8.4-10.2) mg/dL Magnesium 2.1 (1.6-2.3) mg/dL Total Bilirubin 0.6 (0.2-1.3) mg/dL AST 42 H (14-36) U/L ALT 14 (4-34) U/L Alkaline Phosphatase 112 (38-126) U/L Ammonia (<30) umol/L Creatine Kinase 108 (30-135) U/L Total Creatine Kinase (30-135) U/L CK-MB (CK-2) (0.0-2.4) ng/mL CK-MB (CK-2) Rel Index Total Protein 9.0 H (6.3-8.2) g/dL Albumin 4.3 (3.5-5.0) g/dL Lipase 189 (23-300) U/L Urine Color Light Yellow Urine Appearance Clear (Clear) Urine pH 6.0 (5.0-8.0) Ur Specific [place] 1.010 (1.001-1.035) Urine Protein Negative (Negative) Urine Glucose (UA) Negative (Negative) Urine Ketones Negative (Negative) Urine Blood Negative (Negative) Urine Nitrite Negative (Negative) Urine Bilirubin Negative (Negative) Urine Urobilinogen <2.0 (<2.0) mg/dL Ur Leukocyte Esterase Negative (Negative) Coronavirus (PCR) (Not Detectd) 10/24/21 10/24/21 10/24/21 Range/Units 09:47 09:47 09:47 WBC (3.8-10.6) k/uL RBC (3.80-5.40) m/uL Hgb (11.4-16.0) gm/dL Hct (34.0-46.0) % MCV (80.0-100.0) fL MCH (25.0-35.0) pg MCHC (31.0-37.0) g/dL RDW (11.5-15.5) % Plt Count (150-450) k/uL MPV Neutrophils % % Lymphocytes % % Monocytes % % Eosinophils % % Basophils % % Neutrophils # (1.3-7.7) k/uL Lymphocytes # (1.0-4.8) k/uL Monocytes # (0-1.0) k/uL Eosinophils # (0-0.7) k/uL Basophils # (0-0.2) k/uL Sodium (137-145) mmol/L Potassium (3.5-5.1) mmol/L Chloride (98-107) mmol/L Carbon Dioxide (22-30) mmol/L Anion Gap mmol/L BUN (7-17) mg/dL Creatinine (0.52-1.04) mg/dL Est GFR (CKD-EPI)AfAm (>60 ml/min/1.73 sqM) Est GFR (CKD-EPI)NonAf (>60 ml/min/1.73 sqM) Glucose (74-99) mg/dL Plasma Lactic Acid [place] 0.7 (0.7-2.0) mmol/L Calcium (8.4-10.2) mg/dL Magnesium (1.6-2.3) mg/dL Total Bilirubin (0.2-1.3) mg/dL AST (14-36) U/L ALT (4-34) U/L Alkaline Phosphatase (38-126) U/L Ammonia <9 (<30) umol/L Creatine Kinase (30-135) U/L Total Creatine Kinase 101 (30-135) U/L CK-MB (CK-2) 2.5 H (0.0-2.4) ng/mL CK-MB (CK-2) Rel Index 2.5 Total Protein (6.3-8.2) g/dL Albumin (3.5-5.0) g/dL Lipase (23-300) U/L Urine Color Urine Appearance (Clear) Urine pH (5.0-8.0) Ur Specific [place] (1.001-1.035) Urine Protein (Negative) Urine Glucose (UA) (Negative) Urine Ketones (Negative) Urine Blood (Negative) Urine Nitrite (Negative) Urine Bilirubin (Negative) Urine Urobilinogen (<2.0) mg/dL Ur Leukocyte Esterase (Negative) Coronavirus (PCR) Not Detected (Not Detectd) - EKG Data -: EKG Interpreted by Me EKG shows normal: sinus rhythm EKG Comments: EKG shows normal sinus rhythm a 76. 166 QRS duration 78 QT since QTC 377/[address]-T wave changes - Radiology Data Radiology results: report reviewed (Imaging reviewed evidence of right mid lung infiltrate), image reviewed Disposition Clinical Impression: Pneumonia, Dehydration, Dementia, Failure to thrive Disposition: ADMITTED IP TO THIS [facility] Condition: Fair Referrals: Justyn Johnson DO [Primary Care Provider] - 1-2 days Decision Date: 10/24/21 Decision Time: 13:51
--- NOTE | 2021-10-24 09:54 | XR ---
EXAMINATION TYPE: XR chest 2V DATE OF EXAM: 10/24/2021 9:44 AM COMPARISON: Chest radiographs from 08/01/2019 TECHNIQUE: XR chest 2V Frontal and lateral views of the chest. CLINICAL INDICATION:Female, 86 years old with history of Altered mental status; FINDINGS: Lungs/Pleura: No evidence of effusion or pneumothorax. Subtle airspace opacity within the right midlu ng. Senescent changes. Improvement elevation of the right hemidiaphragm. Pulmonary vascularity: Unremarkable. Heart/mediastinum: Cardiomediastinal silhouette is unremarkable. Atherosclerotic calcifications are seen in the aorta. Musculoskeletal: Stable chronic anterior wedge compression deformities of the T8 and T9 vertebral bod ies. IMPRESSION: Subtle patchy airspace opacity within the right midlung which may represent atelectasis versus infilt rate in the appropriate clinical setting.
[2021-10-24 10:16] LABS: Basophils % (A) 1 %; Eosinophils # (A) 0.1 k/uL (0-0.7); Eosinophils % (A) 2 %; HCT 37.6 % (34.0-46.0); HGB 11.8 gm/dL (11.4-16.0); Lymphocytes # (A) 1.5 k/uL (1.0-4.8); Lymphocytes % (A) 32 %; MCH 28.8 pg (25.0-35.0); MCHC 31.5 g/dL (31.0-37.0); MCV 91.5 fL (80.0-100.0); Mean Platelet Volume 7.3; Monocytes # (A) 0.3 k/uL (0-1.0); Monocytes % (A) 6 %; Neutrophils # (A) 2.7 k/uL (1.3-7.7); Neutrophils % (A) 57 %; Platelet Count 254 k/uL (150-450); RBC 4.11 m/uL (3.80-5.40); RDW 14.9 % (11.5-15.5); WBC 4.7 k/uL (3.8-10.6)
[2021-10-24 10:18] LABS: Appearance,Urine Clear (Clear); Bilirubin,Urine Negative (Negative); Blood,Urine Negative (Negative); Color,Urine Light Yellow; Glucose,Urine (UA) Negative (Negative); Ketones,Urine Negative (Negative); Leukocyte Esterase,Urine Negative (Negative); Nitrite,Urine Negative (Negative); Protein,Urine Negative (Negative); Urobilinogen,Urine <2.0 mg/dL (<2.0)
[2021-10-24 10:27] LABS: Lactic Acid, Venous 0.7 mmol/L (0.7-2.0)
[2021-10-24 10:30] LABS: Albumin 4.3 g/dL (3.5-5.0); Calcium 9.5 mg/dL (8.4-10.2); Magnesium 2.1 mg/dL (1.6-2.3); Total Bilirubin 0.6 mg/dL (0.2-1.3)
[2021-10-24 10:41] LABS: Creatine Kinase MB 2.5 ng/mL (0.0-2.4)
[2021-10-24] MEDS ORDERED: cefTRIAXone IN SWFI 1,000 MG/10 ML SYRINGE IVP STA (13:23)
[2021-10-24] MEDS ORDERED: AZITHROMYCIN 500 MG in SODIUM CHLORIDE 0.9% 250 ML IVPB STA (13:51)
[2021-10-24] MEDS ORDERED: PNEUMONIA PROTOCOL UTILIZED 1 EACH MISC PO PRN (13:51)
[2021-10-24] MEDS ORDERED: IPRATROPIUM-ALBUTEROL 3 ML NEB INHALATION PRN (13:52)
[2021-10-24] MEDS: SODIUM CHLORIDE 0.9% 1,000 ML IV SCH ×2 (14:03→23:39)
--- NOTE | 2021-10-24 15:40 | P.HPIM ---
History of Present Illness H&P Date: 10/24/21 Chief Complaint: Generalized weakness Patient is a 86-year-old female with a known history of CVA/TIA, multiple falls and history of rib fractures, GERD, COPD, rheumatoid arthritis, history of squamous cell carcinoma the skin, history of brain aneurysm surgery and angioplasty, AAA repair and other multiple medical problems including dementia was brought to the hospital due to difficulty ambulating and medical debility and hallucinations. Patient's is unable to take care of her at home. Patient is currently bedridden and recently changed with the help of her h usband. Patient does have underlying dementia which is getting worse. Patient states that she has been having Fevers. No chills. No nausea vomiting abdominal pain or diarrhea. Denies any cough or sputum production. No complaints of chest pain. Denies any recent illnesses. Patient is a poor historian otherwise. Chest x-ray showed subtle patchy airspace opacity within the right midlung which may represent atelectasis versus infiltrate in the appropriate setting. Laboratory showed WC 4.7 hemoglobin 11.8 and platelets 244 Sodium 139 potassium 5.0 chloride 109 bicarb is 22 BUN 37 and creatinine 1.71 Review of Systems Constitutional: Patient does have subjective fevers at home. No chills . Generalized weakness. Abdomen: Patient denied any nausea or vomiting or abd. pain Cardiovascular: Patient denies any chest pain or short of breath no palpitations. Respiratory: patient denied any cough is from production. No shortness of breath Neurologic: Patient denied any numbness or tingling headache. Complete review of systems could not be obtained from the patient Past Medical History Past Medical History: Cancer, COPD, CVA/TIA, GERD/Reflux, Musculoskeletal Disorder, Neurologic Disorder, Pneumonia, Renal Disease, Rheumatoid Arthritis (RA), Skin Disorder Additional Past Medical History / Comment(s): 2016 FALL/LT HIP FX(sx). 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 KIDNEY DX, PAD,"difficulty swallowing", uti- ecoli 2016, over active bladder wears a brief. ESRD History of Any Multi-Drug Resistant Organisms: None Reported Past Surgical History: Appendectomy, Cholecystectomy, Hysterectomy, Orthopedic Surgery Additional Past Surgical History / Comment(s): brain aneursym with surgery and angioplasty, aaa repair also, jani cataract, skin ca removed, lt breast bx and cyst removed, d&c, colonoscopy, orif lt hip, ORIF RT HIP, EGD Past Anesthesia/Blood Transfusion Reactions: No Reported Reaction Past Psychological History: No Psychological Hx Reported Smoking Status: Never smoker Past Alcohol Use History: None Reported Past Drug Use History: None Reported - Past Family History Mother Additional Family Medical History / Comment(s): BOWEL PROBLEMS/DIVERTICULAR DIEASE. LIVED TO BE 96 YEARS OLD Father History Unknown: Yes Additional Family Medical History / Comment(s): IN HIS SLEEEP AT AGE 86 Sister(s) Family Medical History: Cancer Additional Family Medical History / Comment(s): COLON Brother(s) Family Medical History: Cancer Additional Family Medical History / Comment(s): THROAT CANCER Medications and Allergies Home Medications Medication Instructions Recorded Confirmed Type Omeprazole 20 mg PO AC-BID #60 cap 06/30/20 10/24/21 Rx Oxybutynin Chloride [Ditropan] 5 mg PO BID #60 tab 06/30/20 10/24/21 Rx Pediatric Multivitamin No.30 1 tab PO BID #1 tab 08/06/21 10/24/21 Rx [Multivitamin Children's Gummies] QUEtiapine [SEROquel] 12.5 mg PO HS 10/24/21 10/24/21 History Allergies Allergy/AdvReac Type Severity Reaction Status Date / Time gluten Allergy allergy Verified 10/24/21 14:14 testing codeine AdvReac Nausea & Verified 10/24/21 14:14 Vomiting Physical Exam Vitals: Vital Signs Temp Pulse Resp BP Pulse Ox 10/24/21 13:00 97.2 F L 86 16 109/61 97 10/24/21 09:28 97.3 F L 84 16 142/82 96 Intake and Output 10/24/21 10/24/21 10/24/21 06:59 14:59 22:59 Other: Weight 43.409 kg PHYSICAL EXAMINATION: Patient is lying in the bed comfortably, no acute distress, awake alert and oriented 1-2.. HEENT: Normocephalic. Neck is supple. Pupils reactive. Nostrils clear. Oral cavity is moist. Neck reveals no JVD, carotid bruits, or thyromegaly. CHEST EXAMINATION: Trachea is central. Symmetrical expansion. Lung milan clear to auscultation and percussion. CARDIAC: Normal S1, S2 with no gallops. No murmurs ABDOMEN: Soft. Bowel sounds present. Nontender. No organomegaly. No abdominal bruits. Extremities: reveal no edema. No clubbing or cyanosis Neurologically awake, alert, oriented, Able to move extremities while in bed. dementia, No gross neurological deficit.. Skin: No rash or skin lesions. Psychiatric: Coperative. Could not be assessed completely.. Musculoskeletal: No joint swelling or deformity. Normal range of motion. Results CBC & Chem 7: 10/24/21 09:47 10/24/21 09:47 Labs: Abnormal Lab Results - Last 24 Hours (Table) 10/24/21 10/24/21 Range/Units 09:47 09:47 Chloride 109 H (98-107) mmol/L BUN 37 H (7-17) mg/dL Creatinine 1.71 H (0.52-1.04) mg/dL AST 42 H (14-36) U/L CK-MB (CK-2) 2.5 H (0.0-2.4) ng/mL Total Protein 9.0 H (6.3-8.2) g/dL Thrombosis Risk Factor Assmnt - DVT/VTE Prophylaxis DVT/VTE Prophylaxis: Pharmacologic Prophylaxis ordered Assessment and Plan Assessment: Possible mid right lung infiltrate/pneumonia Hallucinations at home Mild acute kidney injury likely prerenal creatinine 1.7 and baseline creatinine level around 1.4 Dementia Medical debility and bedridden History of multiple falls and hip fractures. GERD History of CVA/TIA COPD not in exacerbation Bronchiolitis She was counseled because of the skin. History of AAA repair Brain aneurysm with surgery DVT prophylaxis Heparin subcu Plan: Patient will be current on antibiotics in the form of ceftriaxone azithromycin. Follow-up blood culture report. Urinalysis is negative for infection. COVID- 19 negative. Continue with IV hydration and encourage oral intake. PT OT consulted and patient will need extended-care facility transfer. Continue to follow closely.
[2021-10-24] MEDS: PANTOPRAZOLE 40 MG TABLET PO SCH (17:41)
[2021-10-24] MEDS: ACETAMINOPHEN TAB 325 MG TAB PO SCH (17:42)
[2021-10-24] MEDS: QUEtiapine 25 MG TAB PO SCH (21:26)
[2021-10-24] MEDS: HEPARIN SODIUM,PORCINE/PF 5,000 UNIT/0.5 ML SYRINGE SQ SCH (21:27)
[2021-10-24] MEDS: OXYBUTYNIN CHLORIDE 5 MG TAB PO SCH (22:53)
[2021-10-25] MEDS: ACETAMINOPHEN TAB 325 MG TAB PO SCH ×5 (02:35→23:52)
[2021-10-25 04:43] LABS: Basophils % (A) 1 %; Eosinophils # (A) 0.3 k/uL (0-0.7); Eosinophils % (A) 7 %; HCT 36.4 % (34.0-46.0); HGB 11.5 gm/dL (11.4-16.0); Hypochromasia Slight; Lymphocytes % (A) 25 %; MCH 29.6 pg (25.0-35.0); MCHC 31.6 g/dL (31.0-37.0); MCV 93.9 fL (80.0-100.0); Monocytes # (A) 0.3 k/uL (0-1.0); Monocytes % (A) 7 %; Neutrophils # (A) 2.5 k/uL (1.3-7.7); Neutrophils % (A) 60 %; Platelet Count 249 k/uL (150-450); RBC 3.88 m/uL (3.80-5.40); RDW 15.1 % (11.5-15.5); WBC 4.2 k/uL (3.8-10.6)
[2021-10-25 05:09] LABS: African American GFR (CKD) 33 (>60 ml/min/1.73 sqM); Anion Gap 4 mmol/L; Blood Urea Nitrogen 29 mg/dL (7-17); Calcium 9.1 mg/dL (8.4-10.2); Carbon Dioxide 25 mmol/L (22-30); Chloride 111 mmol/L (98-107); Glucose 113 mg/dL (74-99); Non-African American GFR(CKD) 28 (>60 ml/min/1.73 sqM); Potassium 4.1 mmol/L (3.5-5.1); Sodium 140 mmol/L (137-145)
--- NOTE | 2021-10-25 07:41 | XR ---
EXAMINATION TYPE: XR chest 2V DATE OF EXAM: 10/25/2021 COMPARISON: 10/24/2021 INDICATION: Pneumonia TECHNIQUE: Frontal and lateral views of the chest are obtained. FINDINGS: The heart size is normal. The pulmonary vasculature is increasing slightly in prominence. The lungs are clear. No suspicious focal filtrate or consolidation is evident. IMPRESSION: 1. Pulmonary vascular markings are increased slightly over the interval. Correlate for developing vol ume overload.
[2021-10-25 08:11] LABS: T4, Free (Free Thyroxine) 1.38 ng/dL (0.78-2.19)
[2021-10-25] MEDS: PANTOPRAZOLE 40 MG TABLET PO SCH (09:54)
[2021-10-25] MEDS: HEPARIN SODIUM,PORCINE/PF 5,000 UNIT/0.5 ML SYRINGE SQ SCH ×2 (09:54→20:51)
[2021-10-25] MEDS: OXYBUTYNIN CHLORIDE 5 MG TAB PO SCH ×2 (09:55→20:51)
[2021-10-25] MEDS: AZITHROMYCIN 500 MG TAB PO SCH (13:28)
[2021-10-25] MEDS: SODIUM CHLORIDE 0.9% 1,000 ML IV SCH ×2 (13:30→20:51)
--- NOTE | 2021-10-25 16:50 | PN ---
PROGRESS NOTE DATE OF SERVICE: 10/25/2021 This 86-year-old woman who was admitted with pneumonia and renal failure is being closely monitored. No chest pain. No palpitations. Patient is on IV antibiotics. The most recent chest x-ray showed possible right-sided pneumonia. PHYSICAL EXAMINATION: Pulse is 73, blood pressure 160/70, respirations 16. HEENT: Conjunctivae normal. CARDIOVASCULAR: S1, S2 muffled. RESPIRATION: A few scattered rhonchi and crackles. ABDOMEN: Soft. NERVOUS SYSTEM: No focal deficit. LABS: Reviewed. ASSESSMENT: 1. Acute right middle lobe pneumonia. 2. Mild acute kidney injury. 3. Dementia. 4. Gastroesophageal reflux disease. 5. Multiple medical issues. RECOMMENDATIONS AND DISCUSSION: I recommend to continue current medications, continue with the monitoring, symptomatic treatment. Continue with the antibiotics. Continue the bronchodilators. Continue the rest of the medications. Further recommendations to follow. MMODL / IJN: [id number] /
[2021-10-25] MEDS: QUEtiapine 25 MG TAB PO SCH (20:50)
[2021-10-26] MEDS: ACETAMINOPHEN TAB 325 MG TAB PO SCH ×4 (05:25→23:34)
[2021-10-26] MEDS: SODIUM CHLORIDE 0.9% 1,000 ML IV SCH ×2 (05:52→18:13)
[2021-10-26] MEDS: HEPARIN SODIUM,PORCINE/PF 5,000 UNIT/0.5 ML SYRINGE SQ SCH ×2 (08:02→20:05)
[2021-10-26] MEDS: OXYBUTYNIN CHLORIDE 5 MG TAB PO SCH ×2 (08:02→20:05)
[2021-10-26] MEDS: PANTOPRAZOLE 40 MG TABLET PO SCH (08:02)
[2021-10-26] MEDS: AZITHROMYCIN 500 MG TAB PO SCH (12:38)
[2021-10-26] MEDS ORDERED: AZITHROMYCIN 500 MG TAB PO SCH (13:15)
--- NOTE | 2021-10-26 14:52 | PN ---
PROGRESS NOTE DATE OF SERVICE: 10/26/2021 This 86-year-old woman was admitted with acute right middle lobe pneumonia and mild acute kidney injury is being closely monitored. Patient on broad spectrum IV antibiotics. No chest pain. No palpitations. PHYSICAL EXAMINATION: Pulse 86. Blood pressure 120/87. Respiration 17. HEENT: Conjunctivae normal. Neck: No JVD. Cardiovascular: S1, S2 muffled. Respirations: Breath sounds diminished in the bases. A few scattered rhonchi and crackles. Abdomen: Soft. Nervous system: No focal deficits. LABS: Creatinine 1.63. TSH noted. ASSESSMENT: 1. Acute right middle lobe pneumonia. 2. Mild acute kidney injury. 3. Dementia. 4. Gastroesophageal reflux disease. 5. Multiple medical issues. RECOMMENDATIONS AND DISCUSSION: Recommend to continue current medications, management and symptomatic treatment. Continue with broad-spectrum IV antibiotics. Otherwise bronchodilators. Repeat labs. IV fluids. Further recommendations to follow. MMODL / IJN: [id number] /
[2021-10-26] MEDS: QUEtiapine 25 MG TAB PO SCH (20:05)
[2021-10-27] MEDS: SODIUM CHLORIDE 0.9% 1,000 ML IV SCH ×2 (01:29→11:05)
[2021-10-27] MEDS: ACETAMINOPHEN TAB 325 MG TAB PO SCH ×3 (05:11→17:50)
[2021-10-27] MEDS: OXYBUTYNIN CHLORIDE 5 MG TAB PO SCH ×2 (08:18→21:46)
[2021-10-27] MEDS: AZITHROMYCIN 500 MG TAB PO SCH (08:18)
[2021-10-27] MEDS: HEPARIN SODIUM,PORCINE/PF 5,000 UNIT/0.5 ML SYRINGE SQ SCH ×2 (08:18→21:50)
[2021-10-27] MEDS: PANTOPRAZOLE 40 MG TABLET PO SCH (08:18)
[2021-10-27 09:28] LABS: African American GFR (CKD) 35.9 (60.0-200.0); Anion Gap 9.4 mmol/L (10.00-18.00); BUN/Creat Ratio 12.4 Ratio (12.00-20.00); Blood Urea Nitrogen 18.6 mg/dL (9.0-27.0); Calcium 8.9 mg/dL (8.7-10.3); Carbon Dioxide 18.6 mmol/L (20.0-27.5); Potassium 4.2 mmol/L (3.5-5.5)
[2021-10-27 09:29] LABS: Basophils # (A) 0.02 X 10*3/uL (0.00-0.10); Basophils % (A) 0.6 %; Eosinophils # (A) 0.65 X 10*3/uL (0.04-0.35); Eosinophils % (A) 18.1 %; HGB 11.1 g/dL (12.0-15.0); Immature Grans, Automated 0.3 %; Lymphocytes # (A) 1.37 X 10*3/uL (0.90-5.00); Lymphocytes % (A) 38.1 %; MCH 28.5 pg (27.0-32.0); MCHC 30.8 g/dL (32.0-37.0); MCV 92.3 fL (80.0-97.0); Monocytes # (A) 0.26 X 10*3/uL (0.20-1.00); Monocytes % (A) 7.2 %; NRBC Per 100 WBC 0 /100 WBCS (0.0-0.0); Neutrophils # (A) 1.29 X 10*3/uL (1.80-7.70); Neutrophils % (A) 35.7 %; Platelet Count 206 X 10*3/uL (140-440); RDW 15.2 % (11.5-14.5)
[2021-10-27 11:56] VITALS: BMI 16.4
[2021-10-27] MEDS ORDERED: CYANOCOBALAMIN 1,000 MCG/ML 1 ML VIAL IM ONE (12:10)
--- NOTE | 2021-10-27 12:15 | P.PN ---
Subjective Patient is a 86-year-old female with a known history of CVA/TIA, multiple falls and history of rib fractures, GERD, COPD, rheumatoid arthritis, history of squamous cell carcinoma the skin, history of brain aneurysm surgery and angioplasty, AAA repair and other multiple medical problems including dementia was brought to the hospital due to difficulty ambulating and medical debility and hallucinations. Patient's is unable to take care of her at home. Patient is currently bedridden and recently changed with the help of her . Patient does have underlying dementia which is getting worse. Patient states that she has been having Fevers. No chills. No nausea vomiting abdominal pain or diarrhea. Denies any cough or sputum production. No complaints of chest pain. Denies any recent illnesses. Patient is a poor historian otherwise. Chest x-ray showed subtle patchy airspace opacity within the right midlung which may represent atelectasis versus infiltrate in the appropriate setting. Laboratory showed WC 4.7 hemoglobin 11.8 and platelets 244 Sodium 139 potassium 5.0 chloride 109 bicarb is 22 BUN 37 and creatinine 1.71 10/27/2021 Patient is awake, feels generally weak, lying in bed comfortable, no respiratory distress with minimal respiratory symptoms. She's been admitted for right sided pneumonia and she is currently on antibiotics of ceftriaxone and Zithromax. Repeat chest x-ray from today still pending. Patient was able to eats 100%of her breakfast this morning. She has borderline B12 and replacement is started for that. Patient is saturating 98% on 4 L oxygen via nasal cannula. Objective - Vital Signs Vital signs: Vital Signs Temp 97.7 F 10/27/21 05:00 Pulse 69 10/27/21 05:00 Resp 18 10/27/21 05:00 BP 163/80 10/27/21 05:00 Pulse Ox 98 10/27/21 05:00 FiO2 Intake & Output 10/26/21 10/27/21 10/27/21 18:59 06:59 18:59 Intake Total 600 Balance 600 Intake: IV 600 cefTRIAXone 2 gm In 600 Sodium Chloride 0.9% 50 ml @ 100 mls/hr IVPB Q24HR [facility] Rx#:[id number] Other: Voiding Method Diaper Diaper Incontinent Incontinent # Voids 1 3 # Bowel Movements 1 - Exam -GENERAL: The patient is alert and oriented x3, not in any acute distress. Well developed, well nourished. Generally weak HEENT: Pupils are round and equally reacting to light. EOMI. No scleral icterus. No conjunctival pallor. Normocephalic, atraumatic. No pharyngeal erythema. No thyromegaly. CARDIOVASCULAR: S1 and S2 present. No murmurs, rubs, or gallops. PULMONARY: Chest is clear to auscultation, no wheezing or crackles. ABDOMEN: Soft, nontender, nondistended, normoactive bowel sounds. No palpable organomegaly. MUSCULOSKELETAL: No joint swelling or deformity. EXTREMITIES: No cyanosis, clubbing, or pedal edema. NEUROLOGICAL: Gross neurological examination did not reveal any focal deficits. SKIN: No rashes. no petechiae. - Labs CBC & Chem 7: 10/27/21 05:15 10/27/21 05:15 Labs: Abnormal Lab Results - Last 24 Hours (Table) 10/27/21 10/27/21 Range/Units 05:15 05:15 WBC 3.60 L (4.50-10.00) X 10*3/uL RBC 3.90 L (4.10-5.20) X 10*6/uL Hgb 11.1 L (12.0-15.0) g/dL Hct 36.0 L (37.2-46.3) % MCHC 30.8 L (32.0-37.0) g/dL RDW 15.2 H (11.5-14.5) % MPV 9.0 L (9.5-12.2) fL Neutrophils # 1.29 L (1.80-7.70) X 10*3/uL Eosinophils # 0.65 H (0.04-0.35) X 10*3/uL Chloride 111 H (96-109) mmol/L Carbon Dioxide 18.6 L (20.0-27.5) mmol/L Anion Gap 9.40 L (10.00-18.00) mmol/L Est GFR (CKD-EPI)AfAm 35.9 L (60.0-200.0) Est GFR (CKD-EPI)NonAf 31.0 L (60.0-200.0) Microbiology - Last 24 Hours (Table) 10/24/21 14:10 Blood Culture - Preliminary Blood No Growth after 48 hours 10/24/21 13:55 Blood Culture - Preliminary Blood No Growth after 48 hours Assessment and Plan Assessment: Right lower lobe pneumonia Acute hypoxic respiratory failure secondary to above Borderline low vitamin B12 Dementia Generalized weakness and deconditioning secondary to above. 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 Continue same treatment. Continue with symptomatic treatment. Resume home medication. Monitor lytes and vitals. DVT and GI prophylaxis. Further recommendationsas per clinical course of the patient DVT prophylaxis: Subcutaneous heparin GI Prophylaxis: Ppi Prognosis is guarded
--- NOTE | 2021-10-27 14:10 | XR ---
EXAMINATION TYPE: XR chest 1V DATE OF EXAM: 10/27/2021 COMPARISON: 10/25/2021 INDICATION: Short of breath TECHNIQUE: Single frontal view of the chest is obtained. FINDINGS: The heart size is normal. The pulmonary vasculature is normal. No suspicious focal consolidations are evident. There is a small focal density within the right midlu ng may be a summation density not previously identified. Follow-up can be performed. IMPRESSION: 1. Small new density within the right mid lung not recently present. Follow-up can be performed.
[2021-10-27] MEDS: QUEtiapine 25 MG TAB PO SCH (21:46)
[2021-10-28] MEDS: ACETAMINOPHEN TAB 325 MG TAB PO SCH ×5 (02:20→23:41)
[2021-10-28] MEDS: AZITHROMYCIN 500 MG TAB PO SCH (07:42)
[2021-10-28] MEDS: CYANOCOBALAMIN 500 MCG TAB PO SCH (07:42)
[2021-10-28] MEDS: PANTOPRAZOLE 40 MG TABLET PO SCH (07:42)
[2021-10-28] MEDS: OXYBUTYNIN CHLORIDE 5 MG TAB PO SCH ×2 (07:42→20:11)
[2021-10-28] MEDS: HEPARIN SODIUM,PORCINE/PF 5,000 UNIT/0.5 ML SYRINGE SQ SCH ×2 (07:43→20:11)
[2021-10-28] MEDS: SODIUM CHLORIDE 0.9% 1,000 ML IV SCH (07:43)
[2021-10-28 12:55] VITALS: RESP 18
[2021-10-28] MEDS ORDERED: PIPERACILLIN-TAZOBACTAM 3.375 GM in SODIUM CHLORIDE 0.9% 100 ML IVPB SCH (16:00)
[2021-10-28] MEDS: QUEtiapine 25 MG TAB PO SCH (20:11)
--- NOTE | 2021-10-28 21:16 | P.PN ---
Subjective Patient is a 86-year-old female with a known history of CVA/TIA, multiple falls and history of rib fractures, GERD, COPD, rheumatoid arthritis, history of squamous cell carcinoma the skin, history of brain aneurysm surgery and angioplasty, AAA repair and other multiple medical problems including dementia was brought to the hospital due to difficulty ambulating and medical debility and hallucinations. Patient's is unable to take care of her at home. Patient is currently bedridden and recently changed with the help of her . Patient does have underlying dementia which is getting worse. Patient states that she has been having Fevers. No chills. No nausea vomiting abdominal pain or diarrhea. Denies any cough or sputum production. No complaints of chest pain. Denies any recent illnesses. Patient is a poor historian otherwise. Chest x-ray showed subtle patchy airspace opacity within the right midlung which may represent atelectasis versus infiltrate in the appropriate setting. Laboratory showed WC 4.7 hemoglobin 11.8 and platelets 244 Sodium 139 potassium 5.0 chloride 109 bicarb is 22 BUN 37 and creatinine 1.71 10/27/2021 Patient is awake, feels generally weak, lying in bed comfortable, no respiratory distress with minimal respiratory symptoms. She's been admitted for right sided pneumonia and she is currently on antibiotics of ceftriaxone and Zithromax. Repeat chest x-ray from today still pending. Patient was able to eats 100%of her breakfast this morning. She has borderline B12 and replacement is started for that. Patient is saturating 98% on 4 L oxygen via nasal cannula. 10/28/2021 pt is improving slowly and gradually , no significant dyspnea at rest , her oxygen saturation is 97% on room air no fever or leukocytosis pt remains hemodynamically stable labs are reviewed repeat cxr: small new density within the right mid lung not recently present. follow up can be performed her antibiotic is adjusted to augmentin possible discharge in 24-48 hours if she keep improving Objective - Vital Signs Vital signs: Vital Signs Temp 98.0 F 10/28/21 05:00 Pulse 78 10/28/21 05:00 Resp 16 10/28/21 05:00 BP 172/89 10/28/21 05:00 Pulse Ox 97 10/28/21 05:00 FiO2 Intake & Output 10/27/21 10/28/21 10/28/21 18:59 06:59 18:59 Intake Total 2160 590 Balance 2160 590 Weight 43.409 kg Intake: IV 100 cefTRIAXone 2 gm In 100 Sodium Chloride 0.9% 50 ml @ 100 mls/hr IVPB Q24HR [facility] Rx#:[id number] Intake, IV Titration 550 Amount Sodium Chloride 0.9% 1, 550 000 ml @ 50 mls/hr IV . Q20H [facility] Rx#:[id number] Oral [id number] Other: Voiding Method Toilet Toilet Toilet Diaper Incontinent # Voids 4 3 # Bowel Movements 1 0 - Exam -GENERAL: The patient is alert and oriented x3, not in any acute distress. Well developed, well nourished. Generally weak HEENT: Pupils are round and equally reacting to light. EOMI. No scleral icterus. No conjunctival pallor. Normocephalic, atraumatic. No pharyngeal erythema. No thyromegaly. CARDIOVASCULAR: S1 and S2 present. No murmurs, rubs, or gallops. PULMONARY: Chest is clear to auscultation, no wheezing or crackles. ABDOMEN: Soft, nontender, nondistended, normoactive bowel sounds. No palpable organomegaly. MUSCULOSKELETAL: No joint swelling or deformity. EXTREMITIES: No cyanosis, clubbing, or pedal edema. NEUROLOGICAL: Gross neurological examination did not reveal any focal deficits. SKIN: No rashes. no petechiae. - Labs CBC & Chem 7: 10/27/21 05:15 10/27/21 05:15 Labs: Microbiology - Last 24 Hours (Table) 10/24/21 14:10 Blood Culture - Preliminary Blood No Growth after 72 hours 10/24/21 13:55 Blood Culture - Preliminary Blood No Growth after 72 hours Assessment and Plan Assessment: Right lower lobe pneumonia, now middle zone pneumonia Acute hypoxic respiratory failure secondary to above, resolved Borderline low vitamin B12 Dementia Generalized weakness and deconditioning secondary to above. Hypertension Plan: This is a pleasant 86 years old female who presents with pneumonia Continue with augmentin continue with vitamin B12 replacement manager of training of the case for placement Labs and medication were reviewed.. Continue same treatment. Continue with symptomatic treatment. Resume home medication. Monitor lytes and vitals. DVT and GI prophylaxis. Further recommendations as per clinical course of the patient DVT prophylaxis: Subcutaneous heparin GI Prophylaxis: Ppi Prognosis is guarded
[2021-10-28] MEDS: AMOXIC-POT CLAV 500-125 MG 1 EACH TAB PO SCH (22:02)
[2021-10-29] MEDS: ACETAMINOPHEN TAB 325 MG TAB PO SCH ×2 (05:26→12:20)
[2021-10-29] MEDS: SODIUM CHLORIDE 0.9% 1,000 ML IV SCH (05:26)
[2021-10-29] MEDS: AZITHROMYCIN 500 MG TAB PO SCH (09:30)
[2021-10-29] MEDS: HEPARIN SODIUM,PORCINE/PF 5,000 UNIT/0.5 ML SYRINGE SQ SCH (09:30)
[2021-10-29] MEDS: AMOXIC-POT CLAV 500-125 MG 1 EACH TAB PO SCH (09:30)
[2021-10-29] MEDS: CYANOCOBALAMIN 500 MCG TAB PO SCH (09:30)
[2021-10-29] MEDS: PANTOPRAZOLE 40 MG TABLET PO SCH (09:30)
[2021-10-29] MEDS: OXYBUTYNIN CHLORIDE 5 MG TAB PO SCH (09:30)
[2021-10-29 13:06] VITALS: BP 144/80; PULSE 81; TEMP 97.9
--- NOTE | 2021-10-29 14:38 | P.DS ---
Providers Date of admission: 10/24/21 13:51 Expected date of discharge: 10/29/21 Attending physician: Dileep Wilson Primary care physician: Justyn Johnson [facility] Course: History of presenting complaint: This is a 86-year-old patient of Dr. Johnson. Chronic stable medical conditions include COPD, GERD, rheumatoid arthritis, celiac disease, chronic urinary incontinence, lumbar radiculopathy , diverticulosis. Bowel spasms Patient does use a walker. Patient presented with fevers. Tired. Some confusion. Found to have right lower lobe pneumonia. Treated with IV ceftriaxone and azithromycin. October 29: Sitting up in a chair. Minimal cough. Oral intake good. Breathing stable. Discussed with machine adjuster leader case trim. Patient to go to rehab at [facility]. Discussed with patient. Discussion and discharge planning more than 35 minutes Past medical history to include: COPD, GERD, rheumatoid arthritis, questionable stroke, pubic rami fracture, celiac disease, cerebral aneurysm and AAA repair, lumbar radiculopathy, 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 . Does use a walker to get about . Family history: Throat cancer Physical examination: VITAL SIGNS: 97.9, 91, 18, 140/80, 98% room air GENERAL: Reclining in chair, awake, comfortable EYES: Pupils equal. Conjunctiva normal. HEENT: External appearance of nose and ears normal, oral cavity grossly normal. NG tube to suction NECK: JVD not raised; masses not palpable. HEART: First and second heart sounds are normal; no edema. LUNGS: Respiratory rate normal decreased breath sounds ABDOMEN: Soft, no distention. Minimal tender, no guarding rigidity liver spleen not palpable, no masses palpable. Bowel sounds present. PSYCH: Answering simple questions MUSCULOSKELETAL: Evidence of arthritis especially in the hands, INVESTIGATIONS, reviewed in the clinical context: October 29: White count 3.6 hemoglobin 11.1 platelets 26 potassium 4.2 creatinine 1.5 Previous labs August 06: Sodium 135 potassium 4.2 BUN 42 creatinine 1.30 procalcitonin 0.5 to Assessment and plan: -Right lower lobe pneumonia suspected gram-negative organism.. Given IV ceftriaxone Zithromax. 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 PT OT -Full code Disposition: Rehab at [facility] in [facility] Patient Condition at Discharge: Fair Plan - Discharge Summary Discharge Rx Participant: No New Discharge Prescriptions: New Cyanocobalamin [Vitamin B-12] 500 mcg PO DAILY #30 tab Ipratropium-Albuterol Nebulize [Duoneb 0.5 mg-3 mg/3 ml Soln] 3 ml INHALATION RT-QID PRN each PRN Reason: Shortness Of Breath Or Wheezing Amoxic-Pot Clav 500-125 mg [Augmentin 500-125 mg] 1 each PO BID #6 tab Continue Oxybutynin Chloride [Ditropan] 5 mg PO BID #60 tab Omeprazole 20 mg PO AC-BID #60 cap Pediatric Multivitamin No.30 [Multivitamin Children's Gummies] 1 tab PO BID #1 tab QUEtiapine [SEROquel] 12.5 mg PO HS Discharge Medication List Omeprazole 20 mg PO AC-BID #60 cap 06/30/20 [Rx] Oxybutynin Chloride [Ditropan] 5 mg PO BID #60 tab 06/30/20 [Rx] Pediatric Multivitamin No.30 [Multivitamin Children's Gummies] 1 tab PO BID #1 tab 08/06/21 [Rx] QUEtiapine [SEROquel] 12.5 mg PO HS 10/24/21 [History] Amoxic-Pot Clav 500-125 mg [Augmentin 500-125 mg] 1 each PO BID #6 tab 10/29/21 [Rx] Cyanocobalamin [Vitamin B-12] 500 mcg PO DAILY #30 tab 10/29/21 [Rx] Ipratropium-Albuterol Nebulize [Duoneb 0.5 mg-3 mg/3 ml Soln] 3 ml INHALATION RT-QID PRN each 10/29/21 [Rx] Follow up Appointment(s)/Referral(s): Justyn Johnson DO [Primary Care Provider] - 1-2 days
== END 2021-10-29 16:30 | DRG 177 ==
LOC: EC 09:18 → 5NMEDONC 13:51
PROVIDERS: ADMIT Hospitalist; ATTEND Hospitalist
DX: J15.6 Pneumonia due to other Gram-negative bacteria (principal); J96.01 Acute respiratory failure with hypoxia; N18.6 End stage renal disease; E44.0 Moderate protein-calorie malnutrition; Z68.1 Body mass index [BMI] 19.9 or less, adult; I12.0 Hypertensive chronic kidney disease with stage 5 chronic kidney disease or end stage renal disease; J44.0 Chronic obstructive pulmonary disease with (acute) lower respiratory infection; N17.9 Acute kidney failure, unspecified; Z87.891 Personal history of nicotine dependence; E86.0 Dehydration; F03.90 Unspecified dementia, unspecified severity, without behavioral disturbance, psychotic disturbance, mood disturbance, and anxiety; K21.9 Gastro-esophageal reflux disease without esophagitis; K57.30 Diverticulosis of large intestine without perforation or abscess without bleeding; K58.9 Irritable bowel syndrome, unspecified; M06.9 Rheumatoid arthritis, unspecified; M54.16 Radiculopathy, lumbar region; N32.81 Overactive bladder; R32 Unspecified urinary incontinence; R62.7 Adult failure to thrive; Z74.01 Bed confinement status; Z80.8 Family history of malignant neoplasm of other organs or systems; Z85.819 Personal history of malignant neoplasm of unspecified site of lip, oral cavity, and pharynx; Z85.828 Personal history of other malignant neoplasm of skin; Z86.73 Personal history of transient ischemic attack (TIA), and cerebral infarction without residual deficits; Z86.79 Personal history of other diseases of the circulatory system; Z91.81 History of falling; R29.6 Repeated falls; Z71.89 Other specified counseling; Z20.822 Contact with and (suspected) exposure to COVID-19; Z88.5 Allergy status to narcotic agent; R13.10 Dysphagia, unspecified; L30.9 Dermatitis, unspecified
CPT/HCPCS: 36415; 71045; 71046; 80048; 80053; 81003; 82140; 82550; 82553; 82607; 82747; 83605; 83690; 83735; 84145; 84439; 84443; 85025; 87040; 87635; 93005; 96361; 96365; 96375; 99285

== ENCOUNTER 2022-03-31 03:06 | Emergency (ER) | payer MEDICARE ==
[2022-03-31 03:20] VITALS: RESP 18; TEMP 98.6
--- NOTE | 2022-03-31 03:58 | CT ---
EXAMINATION TYPE: CT brain derik bailey con DATE OF EXAM: 03/31/2022 COMPARISON: 07/10/2021 HISTORY: fall, head trauma CT DLP: 1277 mGycm Automated exposure control for dose reduction was used. Images of the brain and cervical spine obtained with no contrast. There is dense metallic density and metal artifact at the right side of the [place] which ap parently is aneurysm coils. There is right temporal craniotomy defect. There is cerebral cortical atr ophy. There is no mass effect nor midline shift. No sign of intracranial hemorrhage. Sella turcica ap pears normal. There is hypodensity in the periventricular white matter. Cervical vertebra show mild straightening. There is mild degenerative spurring in the mid and lower c ervical spine and disc space narrowing. There is mild cervical facet arthropathy. No compression frac ture. No significant subluxation. There is a minimal C3-4 spondylolisthesis. Unchanged. Prevertebral soft tissues are intact. IMPRESSION: Mild cervical spondylotic changes. Minimal degenerative subluxation at C3-4 is unchanged. No cervical spine fracture. Cerebral atrophy and chronic small vessel ischemia. No acute intracranial abnormality. No change comp ared to old exam. There is old right anterior temporal lobe encephalomalacia which appears stable.
--- NOTE | 2022-03-31 04:39 | XR ---
EXAMINATION TYPE: XR Hip RT and AP Pelvis DATE OF EXAM: 03/31/2022 COMPARISON: NONE HISTORY: Trauma. Pain TECHNIQUE: 3 view FINDINGS: The pelvic ring is intact. The proximal right femur and hip joint are intact. There are 3 s crews fixing the left femoral neck. Sacroiliac joints are intact IMPRESSION: No acute abnormality of the pelvis and right hip.
--- NOTE | 2022-03-31 04:42 | XR ---
EXAMINATION TYPE: XR femur LT DATE OF EXAM: 03/31/2022 COMPARISON: NONE HISTORY: Pain TECHNIQUE: 4 views FINDINGS: There are multiple pins fixating the left femoral neck. I see no fracture nor dislocation. Hip joint is anatomic. Acetabulum is intact. There is mild deformity of the inferior pubic ramus and consistent with an old fracture. The knee joint appears intact. IMPRESSION: No acute abnormality of the left femur.
--- NOTE | 2022-03-31 04:45 | XR ---
EXAMINATION TYPE: XR chest 1V DATE OF EXAM: 03/31/2022 COMPARISON: 10/27/2021 HISTORY: Pain TECHNIQUE: FINDINGS: There is no heart failure nor confluent pneumonic infiltrate. There are chest leads. Thorac ic aorta is atheromatous. No pleural effusion. IMPRESSION: No active cardiopulmonary disease. No adverse change. No evidence of a pulmonary nodule.
--- NOTE | 2022-03-31 05:15 | ED ---
General Adult HPI - General Chief complaint: Fall Stated complaint: Altered, Fall, UTI Time Seen by Provider: 03/31/22 03:07 Source: patient Mode of arrival: EMS - History of Present Illness Initial comments: This is an 86-year-old female with a past medical history including dementia presents from her department via EMS after reported fall out of bed at the nursing facility. The patient herself was at her baseline and was ANO times one. The patient did state that "everything hurts" but on further evaluation denied of any deformities or signs of trauma. The patient did state that she had pain on her right hip as well as left femur when I went further to evaluate. The patient was resting in bed comfortably without any further acute pain or distress and no further history was obtained at this time by EMS nor by the patient. - Related Data Home Medications Medication Instructions Recorded Confirmed QUEtiapine [SEROquel] 12.5 mg PO HS 10/24/21 10/24/21 Previous Rx's Medication Instructions Recorded Omeprazole 20 mg PO AC-BID #60 cap 06/30/20 Oxybutynin Chloride [Ditropan] 5 mg PO BID #60 tab 06/30/20 Pediatric Multivitamin No.30 1 tab PO BID #1 tab 08/06/21 [Multivitamin Children's Gummies] Amoxic-Pot Clav 500-125 mg 1 each PO BID #6 tab 10/29/21 [Augmentin 500-125 mg] Cyanocobalamin [Vitamin B-12] 500 mcg PO DAILY #30 tab 10/29/21 Ipratropium-Albuterol Nebulize 3 ml INHALATION RT-QID PRN each 10/29/21 [Duoneb 0.5 mg-3 mg/3 ml Soln] Allergies Allergy/AdvReac Type Severity Reaction Status Date / Time gluten Allergy allergy Verified 10/24/21 14:14 testing codeine AdvReac Nausea & Verified 10/24/21 14:14 Vomiting Review of Systems ROS Statement: Those systems with pertinent positive or pertinent negative responses have been documented in the HPI. Limitations: ROS unobtainable due to patients medical condition Past Medical History Past Medical History: Cancer, COPD, CVA/TIA, GERD/Reflux, Musculoskeletal Disorder, Neurologic Disorder, Pneumonia, Renal Disease, Rheumatoid Arthritis (RA), Skin Disorder Additional Past Medical History / Comment(s): 2016 FALL/LT HIP FX(sx). 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 KIDNEY DX, PAD,"difficulty swallowing", uti-ecoli 2015, over active bladder wears a brief. ESRD History of Any Multi-Drug Resistant Organisms: None Reported Past Surgical History: Appendectomy, Cholecystectomy, Hysterectomy, Orthopedic Surgery Additional Past Surgical History / Comment(s): brain aneursym with surgery and angioplasty, aaa repair also, jani cataract, skin ca removed, lt breast bx and cyst removed, d&c, colonoscopy, orif lt hip, ORIF RT HIP, EGD Past Anesthesia/Blood Transfusion Reactions: No Reported Reaction Past Psychological History: No Psychological Hx Reported Smoking Status: Never smoker Past Alcohol Use History: None Reported Past Drug Use History: None Reported - Past Family History Mother Additional Family Medical History / Comment(s): BOWEL PROBLEMS/DIVERTICULAR DIEASE. LIVED TO BE 96 YEARS OLD Father History Unknown: Yes Additional Family Medical History / Comment(s): IN HIS SLEEEP AT AGE 86 Sister(s) Family Medical History: Cancer Additional Family Medical History / Comment(s): COLON Brother(s) Family Medical History: Cancer Additional Family Medical History / Comment(s): THROAT CANCER General Exam Limitations: altered mental status General appearance: alert, in no apparent distress Head exam: Present: atraumatic, normocephalic Eye exam: Present: normal appearance, PERRL Pupils: Present: normal accommodation ENT exam: Present: normal exam, normal oropharynx, mucous membranes moist Neck exam: Present: normal inspection, full ROM Respiratory exam: Present: normal lung sounds bilaterally Cardiovascular Exam: Present: regular rate, normal rhythm, normal heart sounds GI/Abdominal exam: Present: soft, normal bowel sounds Extremities exam: Present: tenderness (Tenderness noted over the left mid femur, right hip) Back exam: Present: normal inspection, full ROM Neurological exam: Present: alert, altered (At baseline) Psychiatric exam: Present: normal affect, normal mood Skin exam: Present: warm, dry Course Vital Signs 03/31/22 03/31/22 03:15 05:48 Temperature 98.6 F Pulse Rate 74 78 Respiratory 18 18 Rate Blood Pressure 157/102 144/85 O2 Sat by Pulse 97 98 Oximetry Medical Decision Making - Medical Decision Making Was pt. sent in by a medical professional or institution? @ -Sent in by the [facility] Did you speak to anyone other than the patient for history? @ -EMS Did you review nursing and triage notes? @ -Nursing notes were reviewed Were old charts reviewed? @ -halfway notes reviewed Differential Diagnosis? @ -Hip fracture, rib fracture, intracranial hemorrhage EKG interpreted by me (3pts min.)? @ -[none] X-rays interpreted by me (1pt min.)? @ -X-ray of the chest, femur and right hip with pelvis was obtained and was interpreted by myself. All x-rays were negative for any fractures. CT interpreted by me (1pt min.)? @ -CT of the head and C-spine were obtained and were interpreted by myself showing no acute fracture or pathology noted. U/S interpreted by me (1pt. min.)? @ -[none] What testing was considered but not performed? (CT, X-rays, U/S, labs)? Why? @None What meds were considered but not given? Why? @ -[none] Did you discuss the management of the patient with other professionals? @ -No Did you reconcile home meds? @ -[none] Was smoking cessation discussed for >3mins.? @ -[none] Was critical care preformed (if so, how long)? @ -[none] Were there social determinants of health that impacted care today? How? (Homelessness, low income, unemployed, alcoholism, drug addiction, transportation, low edu. Level, literacy, decrease access to med. care, detention, rehab)? @ -No Was there de-escalation of care discussed even if they declined? (Discuss DNR or withdrawal of care, Hospice)? @ -No What co-morbidities impacted this encounter? (DM, HTN, Smoking, COPD, CAD, Cancer, CVA, Hep., AIDS, mental health diagnosis, sleep apnea, morbid obesity)? @ -Advanced dementia, resident of the nursing facility Was patient admitted / discharged? @ -The patient was seen and evaluated emergency department. Physical exam, the patient was resting in bed without any acute distress. The patient was confused but was at baseline. Imaging including x-rays and CT were obtained as the patient had a reported fall out of bed. The patient denied of any obvious deformities or obvious signs of trauma. All imaging was negative. The patient was at her baseline and was deemed stable to be discharged back to her nursing facility. The patient was discharged back in stable condition. Undiagnosed new problem with uncertain prognosis? @ -[none] Drug Therapy requiring intensive monitoring for toxicity (Heparin, Nitro, Insulin, Cardizem)? @ -[none] Were any procedures done? @ -[none] Diagnosis/symptom? @ -Fall, no serious injury Acute, or Chronic, or Acute on Chronic? @ -Acute Uncomplicated (without systemic symptoms) or Complicated (systemic symptoms)? @ -Uncomplicated Side effects of treatment? @ -[none] Exacerbation, Progression, or Severe Exacerbation] @ -[no] Poses a threat to life or bodily function? @ -[no] Disposition Clinical Impression: Fall, Contusion of soft tissue Disposition: HOME SELF-CARE Condition: Stable Instructions (If sedation given, give patient instructions): Fall Prevention for Older Adults (ED), Contusion in Adults (ED) Is patient prescribed a controlled substance at d/c from ED?: No Referrals: Justyn Johnson DO [Primary Care Provider] - 1-2 days Time of Disposition: 05:00
[2022-03-31 05:50] VITALS: BP 144/85; PULSE 78
== END 2022-03-31 05:50 | disposition home or self-care (01) ==
LOC: EC 03:06
DX: S20.219A Contusion of unspecified front wall of thorax, initial encounter (principal); J44.9 Chronic obstructive pulmonary disease, unspecified; Z88.5 Allergy status to narcotic agent; W06.XXXA Fall from bed, initial encounter
CPT/HCPCS: 70450; 71045; 72125; 73502; 99284

== ENCOUNTER 2022-04-09 10:53 | Inpatient (IN) | payer MEDICARE, OTHER ==
[2022-04-09] MEDS ORDERED: SODIUM CHLORIDE 0.9% 1,000 ML IV ONE ×2 (12:06→14:33)
[2022-04-09 12:27] LABS: Basophils # (A) 0.1 k/uL (0-0.2); Basophils % (A) 1 %; Eosinophils % (A) 0 %; HCT 38.9 % (34.0-46.0); HGB 13.1 gm/dL (11.4-16.0); Lymphocytes % (A) 12 %; MCH 30.4 pg (25.0-35.0); MCHC 33.7 g/dL (31.0-37.0); MCV 90.4 fL (80.0-100.0); Mean Platelet Volume 8.3; Monocytes # (A) 0.4 k/uL (0-1.0); Monocytes % (A) 5 %; Neutrophils # (A) 6.6 k/uL (1.3-7.7); Neutrophils % (A) 81 %; Platelet Count 217 k/uL (150-450); RDW 14.3 % (11.5-15.5); WBC 8.2 k/uL (3.8-10.6)
[2022-04-09 12:40] LABS: Albumin 4.5 g/dL (3.5-5.0); Calcium 9.4 mg/dL (8.4-10.2); Potassium 5.1 mmol/L (3.5-5.1); Total Bilirubin 0.6 mg/dL (0.2-1.3); Total Protein 9.4 g/dL (6.3-8.2)
[2022-04-09 12:42] LABS: INR 0.9 (<1.2); Partial Thromboplastin Time 22.2 sec (22.0-30.0)
--- NOTE | 2022-04-09 13:00 | ED ---
General Adult HPI - General Chief complaint: Altered Mental Status Stated complaint: lethargic, abn labs Time Seen by Provider: 04/09/22 11:00 Source: patient, EMS, RN notes reviewed, old records reviewed Mode of arrival: EMS Limitations: altered mental status - History of Present Illness Initial comments: This is an 86 over female presents emergency Department from a senior care patient was sent in for altered mental status. Patient is alert to self place and knows her age. Patient was unable to come up with the date. Patient denies being in any pain and there is no one else with her to give any further history. There is no history of any fever no history of any cough or difficulty breathing. It was of any vomiting or diarrhea. - Related Data Home Medications Medication Instructions Recorded Confirmed QUEtiapine [SEROquel] 12.5 mg PO HS 10/24/21 10/24/21 Previous Rx's Medication Instructions Recorded Omeprazole 20 mg PO AC-BID #60 cap 06/30/20 Oxybutynin Chloride [Ditropan] 5 mg PO BID #60 tab 06/30/20 Pediatric Multivitamin No.30 1 tab PO BID #1 tab 08/06/21 [Multivitamin Children's Gummies] Amoxic-Pot Clav 500-125 mg 1 each PO BID #6 tab 10/29/21 [Augmentin 500-125 mg] Cyanocobalamin [Vitamin B-12] 500 mcg PO DAILY #30 tab 10/29/21 Ipratropium-Albuterol Nebulize 3 ml INHALATION RT-QID PRN each 10/29/21 [Duoneb 0.5 mg-3 mg/3 ml Soln] Allergies Allergy/AdvReac Type Severity Reaction Status Date / Time gluten Allergy allergy Verified 10/24/21 14:14 testing codeine AdvReac Nausea & Verified 10/24/21 14:14 Vomiting Review of Systems ROS Statement: Those systems with pertinent positive or pertinent negative responses have been documented in the HPI. ROS Other: All systems not noted in ROS Statement are negative. Past Medical History Past Medical History: Cancer, COPD, CVA/TIA, GERD/Reflux, Musculoskeletal Disorder, Neurologic Disorder, Pneumonia, Renal Disease, Rheumatoid Arthritis (RA), Skin Disorder Additional Past Medical History / Comment(s): 2016 FALL/LT HIP FX(sx). 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 KIDNEY DX, PAD,"difficulty swallowing", uti-ecoli 2016, over active bladder wears a brief. ESRD History of Any Multi-Drug Resistant Organisms: None Reported Past Surgical History: Appendectomy, Cholecystectomy, Hysterectomy, Orthopedic Surgery Additional Past Surgical History / Comment(s): brain aneursym with surgery and angioplasty, aaa repair also, jani cataract, skin ca removed, lt breast bx and cyst removed, d&c, colonoscopy, orif lt hip, ORIF RT HIP, EGD Past Anesthesia/Blood Transfusion Reactions: No Reported Reaction Past Psychological History: No Psychological Hx Reported Smoking Status: Never smoker Past Alcohol Use History: None Reported Past Drug Use History: None Reported - Past Family History Mother Additional Family Medical History / Comment(s): BOWEL PROBLEMS/DIVERTICULAR DIEASE. LIVED TO BE 96 YEARS OLD Father History Unknown: Yes Additional Family Medical History / Comment(s): IN HIS SLEEEP AT AGE 86 Sister(s) Family Medical History: Cancer Additional Family Medical History / Comment(s): COLON Brother(s) Family Medical History: Cancer Additional Family Medical History / Comment(s): THROAT CANCER General Exam - General Exam Comments Initial Comments: GENERAL: Patient is well-developed and well-nourished. Patient is nontoxic and well-hydrated and is in no acute distress. ENT: Neck is soft and supple. No significant lymphadenopathy is noted. Oropharynx is clear. Dry mucous membranes. Neck has full range of motion without eliciting any pain. EYES: The sclera were anicteric and conjunctiva were pink and moist. Extraocular movements were intact and pupils were equal round and reactive to light. Eyelids were unremarkable. PULMONARY: Unlabored respirations. Good breath sounds bilaterally. No audible rales rhonchi or wheezing was noted. CARDIOVASCULAR: There is a regular rate and rhythm without any murmurs gallops or rubs. ABDOMEN: Soft and nontender with normal bowel sounds. SKIN: Skin is clear with no lesions or rashes and otherwise unremarkable. NEUROLOGIC: Patient is alert and oriented 2. Cranial nerves II through XII are grossly intact. Motor and sensory are also intact. Normal speech, volume and content. Symmetrical smile. MUSCULOSKELETAL: Normal extremities with adequate strength and full range of motion. No lower extremity swelling or edema. No calf tenderness. LYMPHATICS: No significant lymphadenopathy is noted PSYCHIATRIC: Normal psychiatric evaluation. Limitations: altered mental status Course Vital Signs 04/09/22 04/09/22 04/09/22 10:59 12:31 13:33 Temperature 98 F Pulse Rate 104 H 105 H 100 Respiratory 18 18 16 Rate Blood Pressure 125/80 130/82 141/62 O2 Sat by Pulse 97 97 97 Oximetry Medical Decision Making - Medical Decision Making EKG was interpreted by myself EKG shows sinus tachycardia 7 bpm TX interval 156 dresses 76 QT interval 329 QTC is 392. Patient's EKG shows no ST segment elevation or depression. Was pt. sent in by a medical professional or institution (, PA, CHANNEL INSTALLER, urgent care, hospital, or senior care...) When possible be specific @ -The senior care sent the patient into the emergency department. Did you speak to anyone other than the patient for history (EMS, parent, family, police, friend...)? What history was obtained from this source @ -I spoke with EMS about the patient's history patient is a very poor histori an Did you review nursing and triage notes (agree or disagree)? Why? @ -I reviewed and agree with nursing and triage notes Were old charts reviewed (outside hosp., previous admission, EMS record, old EKG, old radiological studies, urgent care reports/EKG's, senior care records)? Report findings @ -Patient's old lab work which reviewed and compared to current lab work Differential Diagnosis (chest pain, altered mental status, abdominal pain women, abdominal pain men, vaginal bleeding, weakness, fever, dyspnea, syncope, headache, dizziness, GI bleed, back pain, seizure, CVA, palpatations, mental h ealth)? @ -Differential Altered Mental Status: Hypoglycemia, DKA, hypercapnia, ETOH, overdose, CO poisoning, trauma, myxedema coma, HTN encephalopathy, infection, encephalitis, psychosis, intercranial hemorrhage, hepatic encephalopathy, meningitis, CVA, this is not meant to be an all-inclusive list EKG interpreted by me (3pts min.). @ -As above X-rays interpreted by me (1pt min.). @ -Chest x-ray shows no acute abnormality. CT interpreted by me (1pt min.). @ -None done U/S interpreted by me (1pt. min.). @ -None done What testing was considered but not performed or refused? (CT, X-rays, U/S, labs)? Why? @ -I consider performing a head CT on this patient however the patient was a no code and if the patient any intercranial abnormality the patient would not be undergoing any surgeries What meds were considered but not given or refused? Why? @ -None Did you discuss the management of the patient with other professionals (pro fessionals i.e. , PA, CHANNEL INSTALLER, lab, RT, psych nurse, manager social media, automotive parts interpreter, teacher, parole hearing officer, disease case manager rn)? Give summary @ -I spoke with son physicians he agreed to admit the patient. Was smoking cessation discussed for >3mins.? @ -No Was critical care preformed (if so, how long)? @ -No Were there social determinants of health that impacted care today? How? (Homelessness, low income, unemployed, alcoholism, drug addiction, transportation, low edu. Level, literacy, decrease access to med. care, prison, rehab)? @ -No Was there de-escalation of care discussed even if they declined (Discuss DNR or withdrawal of care, Hospice)? DNR status @ -I reviewed paperwork to determine CODE STATUS the patient the patient is a no code What co-morbidities impacted this encounter? (DM, HTN, Smoking, COPD, CAD, Can cer, CVA, ARF, Chemo, Hep., AIDS, mental health diagnosis, sleep apnea, morbid obesity)? @ -None Was patient admitted / discharged? Hospital course, mention meds given and route, prescriptions, significant lab abnormalities, going to OR and other pertinent info. @ -She will be admitted for altered mental status hypernatremia dehydration and acute on chronic renal failure Undiagnosed new problem with uncertain prognosis? @ -No Drug Therapy requiring intensive monitoring for toxicity (Heparin, Nitro, Insulin, Cardizem)? @ -No Were any procedures done? @ -No Diagnosis/symptom? @ -Altered mental status Acute, or Chronic, or Acute on Chronic? @ -Acute Uncomplicated (without systemic symptoms) or Complicated (systemic symptoms)? @ -Uncomplicated Side effects of treatment? @ -No Exacerbation, Progression, or Severe Exacerbation? @ -No Poses a threat to life or bodily function? How? (Chest pain, USA, CT, pneumonia, PE, COPD, DKA, ARF, appy, cholecystitis, CVA, Diverticulitis, Homicidal, Suicidal, threat to staff... and all critical care pts) @ - Diagnosis/symptom? @ -Hypernatremia Acute, or Chronic, or Acute on Chronic? @ -Acute Uncomplicated (without systemic symptoms) or Complicated (systemic symptoms)? @ -Uncomplicated Side effects of treatment? @ -none Exacerbation, Progression, or Severe Exacerbation] @ -no Poses a threat to life or bodily function? @ - Diagnosis/symptom? @ -Acute on chronic renal failure Acute, or Chronic, or Acute on Chronic? @ -Acute on chronic Uncomplicated (without systemic symptoms) or Complicated (systemic symptoms)? @ -Complicated Side effects of treatment? @ -none Exacerbation, Progression, or Severe Exacerbation] @ -no Poses a threat to life or bodily function? @ - Diagnosis @ -Dehydration Acute, or Chronic, or Acute on Chronic? @ -Acute Uncomplicated (without systemic symptoms) or Complicated (systemic symptoms)? @ -Uncomplicated Side effects of treatment? @ -none Exacerbation, Progression, or Severe Exacerbation] @ -no Poses a threat to life or bodily function? @ -no - Lab Data Result diagrams: 04/09/22 12:15 04/09/22 12:15 Lab Results 04/09/22 04/09/22 04/09/22 Range/Units 12:15 12:15 12:15 WBC 8.2 (3.8-10.6) k/uL RBC 4.30 (3.80-5.40) m/uL Hgb 13.1 (11.4-16.0) gm/dL Hct 38.9 (34.0-46.0) % MCV 90.4 (80.0-100.0) fL MCH 30.4 (25.0-35.0) pg MCHC 33.7 (31.0-37.0) g/dL RDW 14.3 (11.5-15.5) % Plt Count 217 (150-450) k/uL MPV 8.3 Neutrophils % 81 % Lymphocytes % 12 % Monocytes % 5 % Eosinophils % 0 % Basophils % 1 % Neutrophils # 6.6 (1.3-7.7) k/uL Lymphocytes # 1.0 (1.0-4.8) k/uL Monocytes # 0.4 (0-1.0) k/uL Eosinophils # 0.0 (0-0.7) k/uL Basophils # 0.1 (0-0.2) k/uL PT 10.0 (9.0-12.0) sec INR 0.9 (<1.2) APTT 22.2 (22.0-30.0) sec Sodium 150 H (137-145) mmol/L Potassium 5.1 (3.5-5.1) mmol/L Chloride 117 H (98-107) mmol/L Carbon Dioxide 20 L (22-30) mmol/L Anion Gap 13 mmol/L BUN 95 H (7-17) mg/dL Creatinine 2.57 H (0.52-1.04) mg/dL Est GFR (CKD-EPI)AfAm 19 (>60 ml/min/1.73 sqM) Est GFR (CKD-EPI)NonAf 16 (>60 ml/min/1.73 sqM) Glucose 109 H (74-99) mg/dL Calcium 9.4 (8.4-10.2) mg/dL Total Bilirubin 0.6 (0.2-1.3) mg/dL AST 25 (14-36) U/L ALT 15 (4-34) U/L Alkaline Phosphatase 119 (38-126) U/L Troponin I (0.000-0.034) ng/mL Total Protein 9.4 H (6.3-8.2) g/dL Albumin 4.5 (3.5-5.0) g/dL Urine Color Urine Appearance (Clear) Urine pH (5.0-8.0) Ur Specific [place] (1.001-1.035) Urine Protein (Negative) Urine Glucose (UA) (Negative) Urine Ketones (Negative) Urine Blood (Negative) Urine Nitrite (Negative) Urine Bilirubin (Negative) Urine Urobilinogen (<2.0) mg/dL Ur Leukocyte Esterase (Negative) Urine RBC (0-5) /hpf Urine WBC (0-5) /hpf Ur Squamous Epith Cells (0-4) /hpf Urine Bacteria (None) /hpf Urine Mucus (None) /hpf 04/09/22 04/09/22 Range/Units 12:15 12:15 WBC (3.8-10.6) k/uL RBC (3.80-5.40) m/uL Hgb (11.4-16.0) gm/dL Hct (34.0-46.0) % MCV (80.0-100.0) fL MCH (25.0-35.0) pg MCHC (31.0-37.0) g/dL RDW (11.5-15.5) % Plt Count (150-450) k/uL MPV Neutrophils % % Lymphocytes % % Monocytes % % Eosinophils % % Basophils % % Neutrophils # (1.3-7.7) k/uL Lymphocytes # (1.0-4.8) k/uL Monocytes # (0-1.0) k/uL Eosinophils # (0-0.7) k/uL Basophils # (0-0.2) k/uL PT (9.0-12.0) sec INR (<1.2) APTT (22.0-30.0) sec Sodium (137-145) mmol/L Potassium (3.5-5.1) mmol/L Chloride (98-107) mmol/L Carbon Dioxide (22-30) mmol/L Anion Gap mmol/L BUN (7-17) mg/dL Creatinine (0.52-1.04) mg/dL Est GFR (CKD-EPI)AfAm (>60 ml/min/1.73 sqM) Est GFR (CKD-EPI)NonAf (>60 ml/min/1.73 sqM) Glucose (74-99) mg/dL Calcium (8.4-10.2) mg/dL Total Bilirubin (0.2-1.3) mg/dL AST (14-36) U/L ALT (4-34) U/L Alkaline Phosphatase (38-126) U/L Troponin I 0.019 (0.000-0.034) ng/mL Total Protein (6.3-8.2) g/dL Albumin (3.5-5.0) g/dL Urine Color Light Yellow Urine Appearance Clear (Clear) Urine pH 5.0 (5.0-8.0) Ur Specific [place] 1.016 (1.001-1.035) Urine Protein Trace H (Negative) Urine Glucose (UA) Negative (Negative) Urine Ketones 1+ H (Negative) Urine Blood Trace H (Negative) Urine Nitrite Negative (Negative) Urine Bilirubin Negative (Negative) Urine Urobilinogen <2.0 (<2.0) mg/dL Ur Leukocyte Esterase Trace H (Negative) Urine RBC 1 (0-5) /hpf Urine WBC 2 (0-5) /hpf Ur Squamous Epith Cells <1 (0-4) /hpf Urine Bacteria Rare H (None) /hpf Urine Mucus Rare H (None) /hpf Disposition Clinical Impression: Acute on chronic renal failure, Hypernatremia, Dehydration, Altered mental s tatus Disposition: ADMITTED IP TO THIS HOSP Referrals: None,Stated [Primary Care Provider] - 1-2 days Time of Disposition: 14:33
[2022-04-09 14:05] LABS: Appearance,Urine Clear (Clear); Bacteria,Urine Rare /hpf; Bilirubin,Urine Negative (Negative); Blood,Urine Trace (Negative); Color,Urine Light Yellow; Glucose,Urine (UA) Negative (Negative); Ketones,Urine 1+ (Negative); Leukocyte Esterase,Urine Trace (Negative); Mucus,Urine Rare /hpf; Nitrite,Urine Negative (Negative); Protein,Urine Trace (Negative); RBC,Urine 1 /hpf (0-5); Specific Gravity,Urine 1.016 (1.001-1.035); Squamous Epithelial Cell,Urine <1 /hpf (0-4); Urobilinogen,Urine <2.0 mg/dL (<2.0); WBC,Urine 2 /hpf (0-5)
[2022-04-09 14:18] LABS: Amphetamine Screen,Urine Not Detected (NotDetected); Barbiturate Screen,Urine Not Detected (NotDetected); Benzodiazepines Screen,Urine Not Detected (NotDetected); Cocaine Screen,Urine Not Detected (NotDetected); Methadone Screen, Urine Not Detected (NotDetected); Opiate Screen,Urine Detected (NotDetected); Oxycodone Screen, Urine Not Detected (NotDetected); Phencyclidine Screen,Urine Not Detected (NotDetected); Tricyclic Antidepressant,Urine Detected (NotDetected); Urn Cannabinoid Scrn Not Detected (NotDetected)
[2022-04-09] MEDS ORDERED: bisacodyL 10 MG SUPP RECTAL PRN ×2 (15:49→16:10)
[2022-04-09] MEDS ORDERED: ACETAMINOPHEN TAB 325 MG TAB PO PRN (15:49)
--- NOTE | 2022-04-09 15:55 | P.HPIM ---
History of Present Illness H&P Date: 04/09/22 Chief Complaint: AMS Patient is a 86-year-old female with history of COPD, GERD, rheumatoid arthritis, celiac disease, chronic urinary retention, lumbar radiculopathy, diverticulosis presenting with altered mental status. She is coming from [facility] on the [place]. Reportedly, patient is alert to self and knows her age. However she was having difficulty with time and place. No family at bedside. Patient is a very poor historian. She denies any pain, shortness of breath, nausea, vomiting, diarrhea, constipation. In the ED, patient was slightly tachycardic to 104, normal pressure, saturating well on room air, afebrile, normal respiratory rate. Lab work was significant for hyponatremia at 150, bicarb 20, anion gap 13, BUN 95, creatinine 2.57, UA negative for nitrites and trace leukocyte esterase. Tox screen positive for opiates and TCA. Patient was given IV fluids in the ED. Patient seen and examined at bedside. Pertinent positives and negatives as discussed in HPI, a complete review of systems was performed and all other systems are negative. Vital signs reviewed General: nontoxic, no distress, appears at stated age Derm: warm, dry Head: atraumatic, normocephalic, symmetric Eyes: EOMI, no lid lag, anicteric sclera, pupils equal round reactive to light ENT: Nose and ears atraumatic Neck: No thyromegaly, supple Mouth: no lip lesion, mucus membranes moist Cardiovascular: S1S2 reg, no murmur, no edema Lungs: clear to auscultation bilateral, no rhonchi, no rales, no wheeze, no accessory muscle use Abdominal: soft, nontender to palpation, no guarding, no appreciable organomegaly Ext: no gross muscle atrophy, muscle strength muscle strength 5 out of 5 in all 4 extremities, no contractures Neuro: CN II-XII grossly intact Psych: Alert, oriented, appropriate affect Assessment/Plan: Acute metabolic encephalopathy Hypernatremia High anion gap metabolic acidosis Uremia Acute kidney injury on chronic kidney disease Acute urinary retention status post Martin catheter Polypharmacy - Encephalopathy Secondary to electrolyte arrangements, uremia, polypharmacy -Continue IV fluids -Monitor BMP -Monitor urine output and function -Renal ultrasound pending -Hold sedating medication as well as anticholinergic medications -Continue quetiapine -We'll give her 0.5 mg Klonopin daily instead of twice a day -B12, folic acid, TSH pending Chronic medical problems: COPD GERD Dementia/mood disorder -Resume home medications The patient is admitted with an anticipated greater than 2 midnight stay for evaluation of acute encephalopathy. Surrogate decision-maker:spouse CODE STATUS: DO NOT RESUSCITATE DVT prophylaxis: Subcu heparin Anticipated discharge date: Pending clinical course Anticipated discharge place: Pending clinical course A total of 65 minutes was spent on the care of this complex patient more than 50% of the time was spent in counseling and care coordination. Past Medical History Past Medical History: Cancer, COPD, CVA/TIA, GERD/Reflux, Musculoskeletal Disorder, Neurologic Disorder, Pneumonia, Renal Disease, Rheumatoid Arthritis (RA), Skin Disorder Additional Past Medical History / Comment(s): 2016 FALL/LT HIP FX(sx). 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 KIDNEY DX, PAD,"difficulty swallowing", uti-ecoli 2016, over active bladder wears a brief. ESRD History of Any Multi-Drug Resistant Organisms: None Reported Past Surgical History: Appendectomy, Cholecystectomy, Hysterectomy, Orthopedic Surgery Additional Past Surgical History / Comment(s): brain aneursym with surgery and angioplasty, aaa repair also, jani cataract, skin ca removed, lt breast bx and cy st removed, d&c, colonoscopy, orif lt hip, ORIF RT HIP, EGD Past Anesthesia/Blood Transfusion Reactions: No Reported Reaction Past Psychological History: No Psychological Hx Reported Smoking Status: Never smoker Past Alcohol Use History: None Reported Past Drug Use History: None Reported - Past Family History Mother Additional Family Medical History / Comment(s): BOWEL PROBLEMS/DIVERTICULAR DIEASE. LIVED TO BE 96 YEARS OLD Father History Unknown: Yes Additional Family Medical History / Comment(s): IN HIS SLEEEP AT AGE 86 Sister(s) Family Medical History: Cancer Additional Family Medical History / Comment(s): COLON Brother(s) Family Medical History: Cancer Additional Family Medical History / Comment(s): THROAT CANCER Medications and Allergies Home Medications Medication Instructions Recorded Confirmed Type QUEtiapine [SEROquel] 25 mg PO BID@0900,2100 10/24/21 04/09/22 History Cyanocobalamin [Vitamin B-12] 500 mcg PO DAILY #30 tab 10/29/21 04/09/22 Rx Acetaminophen [Tylenol] 650 mg PO Q4H PRN 04/09/22 04/09/22 History Cyproheptadine HCl [Periactin] 2 mg PO TID@0600,1000,1500 04/09/22 04/09/22 History Ensure Clear 240 ml PO BID@0900,1700 04/09/22 04/09/22 History Famotidine [Pepcid] 20 mg PO QAM@0600 04/09/22 04/09/22 History Lactulose 20 gm PO BID@0900,2100 04/09/22 04/09/22 History Magnesium Hydroxide [Milk of 2,400 mg PO DAILY 04/09/22 04/09/22 History Magnesia] Multivitamins, Thera [Multivitamin 1 tab PO DAILY 04/09/22 04/09/22 History (formulary)] Oxybutynin Chloride [Oxybutynin 10 mg PO DAILY 04/09/22 04/09/22 History Chloride ER] bisacodyL [Dulcolax] 10 mg RECTAL DAILY PRN 04/09/22 04/09/22 History clonazePAM [KlonoPIN] 0.5 mg PO BID@0900,2100 04/09/22 04/09/22 History Allergies Allergy/AdvReac Type Severity Reaction Status Date / Time gluten Allergy allergy Verified 04/09/22 14:37 testing codeine AdvReac Nausea & Verified 04/09/22 14:37 Vomiting Physical Exam Vitals: Vital Signs Temp Pulse Resp BP Pulse Ox 04/09/22 13:33 100 16 141/62 97 04/09/22 12:31 105 H 18 130/82 97 04/09/22 10:59 98 F 104 H 18 125/80 97 Intake and Output 04/09/22 04/09/22 04/09/22 06:59 14:59 22:59 Other: Weight 47.854 kg Results CBC & Chem 7: 04/09/22 12:15 04/09/22 12:15 Labs: Abnormal Lab Results - Last 24 Hours (Table) 04/09/22 04/09/2204/09/23 Range/Units 12:15 12:15 12:15 Sodium 150 H (137-145) mmol/L Chloride 117 H (98-107) mmol/L Carbon Dioxide 20 L (22-30) mmol/L BUN 95 H (7-17) mg/dL Creatinine 2.57 H (0.52-1.04) mg/dL Glucose 109 H (74-99) mg/dL Total Protein 9.4 H (6.3-8.2) g/dL Urine Protein Trace H (Negative) Urine Ketones 1+ H (Negative) Urine Blood Trace H (Negative) Ur Leukocyte Esterase Trace H (Negative) Urine Bacteria Rare H (None) /hpf Urine Mucus Rare H (None) /hpf Urine Opiates Screen Detected H (NotDetected) U Tricyclic Antidepress Detected H (NotDetected)
[2022-04-09] MEDS ORDERED: NALOXONE 0.4 MG/ML 1 ML VIAL IV PRN (15:56)
[2022-04-09] MEDS: HEPARIN SODIUM,PORCINE/PF 5,000 UNIT/0.5 ML SYRINGE SQ SCH (16:55)
[2022-04-09] MEDS ORDERED: NON FORMULARY DRUG (Ensure Clear 1 BOX Ml) PO SCH (17:00)
--- NOTE | 2022-04-09 17:00 | US ---
EXAMINATION TYPE: US kidneys/renal and bladder DATE OF EXAM: 04/09/2022 COMPARISON: NONE CLINICAL HISTORY: YIMI. EXAM MEASUREMENTS: Right Kidney: 7.4 x 3.9 x 3.8 cm Left Kidney: -- cm Right Kidney: Slightly isoechoic cortex. Limited lower pole visualization. Left Kidney: Not visualized due to overlying bowel gas Bladder: Martin catheter visualized Bilateral Jets seen: No There is no evidence for hydronephrosis at this point in time. No nephrolithiasis is seen. No brook s are identified. Exam is limited by overlying bowel gas and patient not able to cooperate for ideal visualization. IMPRESSION: Limited exam. No evidence of renal obstruction. Left kidney not well-seen. Right kidney shows no sign of obstruction.
[2022-04-09] MEDS: QUEtiapine 25 MG TAB PO SCH (20:50)
[2022-04-09] MEDS: LACTULOSE 20 GM/30 ML CUP PO SCH (20:50)
[2022-04-10] MEDS: HEPARIN SODIUM,PORCINE/PF 5,000 UNIT/0.5 ML SYRINGE SQ SCH ×3 (01:01→17:45)
[2022-04-10] MEDS: CYPROHEPTADINE 4 MG TABLET PO SCH ×3 (06:34→17:44)
[2022-04-10] MEDS: FAMOTIDINE 20 MG TAB PO SCH (06:34)
[2022-04-10] MEDS: MAGNESIUM HYDROXIDE 2,400 MG/10 ML CUP PO SCH (08:00)
[2022-04-10] MEDS: LACTULOSE 20 GM/30 ML CUP PO SCH ×2 (08:00→20:09)
[2022-04-10] MEDS: QUEtiapine 25 MG TAB PO SCH ×2 (08:02→20:09)
[2022-04-10] MEDS: clonazePAM 0.5 MG TAB PO SCH (08:02)
[2022-04-10] MEDS: CYANOCOBALAMIN 500 MCG TAB PO SCH (08:02)
[2022-04-10] MEDS: MULTIVITAMINS, THERA 1 EACH TAB PO SCH (08:02)
[2022-04-10 08:28] LABS: Basophils # (A) 0.1 k/uL (0-0.2); Basophils % (A) 1 %; Eosinophils # (A) 0.1 k/uL (0-0.7); Eosinophils % (A) 2 %; HCT 41.2 % (34.0-46.0); Hypochromasia Moderate; Lymphocytes # (A) 1.3 k/uL (1.0-4.8); Lymphocytes % (A) 22 %; MCH 29.4 pg (25.0-35.0); MCHC 31.5 g/dL (31.0-37.0); MCV 93.5 fL (80.0-100.0); Mean Platelet Volume 7.9; Monocytes # (A) 0.3 k/uL (0-1.0); Monocytes % (A) 4 %; Neutrophils # (A) 4.3 k/uL (1.3-7.7); Neutrophils % (A) 70 %; Platelet Count 205 k/uL (150-450); RBC 4.41 m/uL (3.80-5.40); WBC 6.1 k/uL (3.8-10.6)
[2022-04-10 08:38] LABS: African American GFR (CKD) 31 (>60 ml/min/1.73 sqM); Anion Gap 11 mmol/L; Blood Urea Nitrogen 80 mg/dL (7-17); Calcium 9.1 mg/dL (8.4-10.2); Carbon Dioxide 18 mmol/L (22-30); Chloride 124 mmol/L (98-107); Glucose 97 mg/dL (74-99); Magnesium 2.9 mg/dL (1.6-2.3); Non-African American GFR(CKD) 27 (>60 ml/min/1.73 sqM); Potassium 4.8 mmol/L (3.5-5.1); Sodium 153 mmol/L (137-145)
[2022-04-10] MEDS: DEXTROSE 5%-0.45% NACL 1,000 ML IV SCH ×2 (10:03→20:09)
--- NOTE | 2022-04-10 11:26 | P.PN ---
Subjective Progress Note Date: 04/10/22 Hospital Course: 86-year-old female with history of COPD, GERD, rheumatoid arthritis, celiac disease, chronic urinary retention, lumbar radiculopathy, diverticulosis presenting with altered mental status. She is presented from [facility]. In the ED, patient was slightly tachycardic to 104, normal pressure, saturating well on room air, afebrile, normal respiratory rate. Lab work was significant for hyponatremia at 150, bicarb 20, anion gap 13, BUN 95, creatinine 2.57, UA negative for nitrites and trace leukocyte esterase. Tox screen positive for opiates and TCA. Patient was given IV fluids in the ED. per family, patient is at her baseline. Patient also has a PICC line in place, and had been receiving TPN in the past. Unsure if she is still receiving TPN. Subjective: Patient seen and examined at bedside. No acute events overnight. She denies any chest pain, shortness of breath, abdominal pain. Pertinent positives and negatives as discussed above, a complete review of systems was performed and all other systems are negative. Vitals Signs Reviewed. General: nontoxic, no distress, appears at stated age Derm: warm, dry Head: atraumatic, normocephalic, symmetric Eyes: EOMI, no lid lag, anicteric sclera, pupils equal round reactive to light ENT: Nose and ears atraumatic Neck: No thyromegaly, supple Mouth: no lip lesion, dry membranes moist Cardiovascular: S1S2 reg, no murmur, no edema Lungs: clear to auscultation bilateral, no rhonchi, no rales, no wheeze, no accessory muscle use Abdominal: soft, nontender to palpation, no guarding, no appreciable organomegaly Ext: no gross muscle atrophy, muscle strength muscle strength 3 out of 5 in all 4 extremities, no contractures Neuro: CN II-XII grossly intact Psych: Alert, oriented 1, appropriate affect Assessment and Plan: Acute metabolic encephalopathy Hypernatremia High anion gap metabolic acidosis Uremia Acute kidney injury on chronic kidney disease - resolving Acute urinary retention status post Martin catheter Polypharmacy - Encephalopathy Secondary to electrolyte arrangements, uremia, polypharmacy -Started on D5 half-normal -Monitor BMP -Monitor urine output and function -Renal ultrasound was a limited exam, no evidence of renal obstruction, left kidney not well-seen, right kidney shows no signs of obstruction. -Hold sedating medication as well as anticholinergic medications -Continue quetiapine -We'll give her 0.5 mg Klonopin daily instead of twice a day -B12, folic acid, pending -TSH normal Poor nutritional status -Likely secondary to dementia -Patient has a PICC line in place, was on TPN previously, unsure if she is still taking TPN. Chronic medical problems: COPD GERD Dementia/mood disorder -Resume home medications DVT ppx: Subcu heparin Code status: DO NOT RESUSCITATE Anticipated discharge place: Pending clinical course, PT/OT Anticipated discharge time: Pending clinical course Objective - Vital Signs Vital signs: Vital Signs Temp 97.8 F 04/10/22 07:17 Pulse 98 04/10/22 08:20 Resp 14 04/10/22 08:20 BP 141/91 04/10/22 07:17 Pulse Ox 97 04/10/22 07:28 FiO2 Intake & Output 04/09/22 04/10/22 04/10/22 18:59 06:59 18:59 Intake Total 60 0 Output Total 200 400 400 Balance -140 -400 -400 Weight 47.854 kg Intake: Oral 60 0 Output: Urine 200 400 400 Uretheral (Martin) 100 Other: Voiding Method Indwelling Catheter Indwelling Catheter - Labs CBC & Chem 7: 04/10/22 07:33 04/10/22 07:33 Labs: Abnormal Lab Results - Last 24 Hours (Table) 04/09/22 04/09/22 04/09/22 Range/Units 12:15 12:15 12:15 Sodium 150 H (137-145) mmol/L Chloride 117 H (98-107) mmol/L Carbon Dioxide 20 L (22-30) mmol/L BUN 95 H (7-17) mg/dL Creatinine 2.57 H (0.52-1.04) mg/dL Glucose 109 H (74-99) mg/dL Magnesium (1.6-2.3) mg/dL Total Protein 9.4 H (6.3-8.2) g/dL Urine Protein Trace H (Negative) Urine Ketones 1+ H (Negative) Urine Blood Trace H (Negative) Ur Leukocyte Esterase Trace H (Negative) Urine Bacteria Rare H (None) /hpf Urine Mucus Rare H (None) /hpf Urine Opiates Screen Detected H (NotDetected) U Tricyclic Antidepress Detected H (NotDetected) 04/10/22 Range/Units 07:33 Sodium 153 H (137-145) mmol/L Chloride 124 H (98-107) mmol/L Carbon Dioxide 18 L (22-30) mmol/L BUN 80 H (7-17) mg/dL Creatinine 1.68 H (0.52-1.04) mg/dL Glucose (74-99) mg/dL Magnesium 2.9 H (1.6-2.3) mg/dL Total Protein (6.3-8.2) g/dL Urine Protein (Negative) Urine Ketones (Negative) Urine Blood (Negative) Ur Leukocyte Esterase (Negative) Urine Bacteria (None) /hpf Urine Mucus (None) /hpf Urine Opiates Screen (NotDetected) U Tricyclic Antidepress (NotDetected)
[2022-04-10 12:13] LABS: Vitamin B12 >1800.0 pg/mL (200.0-944.0)
[2022-04-10 17:00] LABS: African American GFR (CKD) 36 (>60 ml/min/1.73 sqM); Anion Gap 11 mmol/L; Blood Urea Nitrogen 72 mg/dL (7-17); Calcium 8.9 mg/dL (8.4-10.2); Carbon Dioxide 17 mmol/L (22-30); Chloride 120 mmol/L (98-107); Glucose 153 mg/dL (74-99); Non-African American GFR(CKD) 31 (>60 ml/min/1.73 sqM); Sodium 148 mmol/L (137-145)
[2022-04-10 17:01] LABS: Potassium 4.4 mmol/L (3.5-5.1)
[2022-04-11] MEDS: FAMOTIDINE 20 MG TAB PO SCH (05:46)
[2022-04-11] MEDS: CYPROHEPTADINE 4 MG TABLET PO SCH ×3 (05:46→15:01)
[2022-04-11] MEDS: DEXTROSE 5%-0.45% NACL 1,000 ML IV SCH (05:47)
[2022-04-11 07:47] LABS: African American GFR (CKD) 39 (>60 ml/min/1.73 sqM); Anion Gap 5 mmol/L; Blood Urea Nitrogen 56 mg/dL (7-17); Calcium 8.4 mg/dL (8.4-10.2); Carbon Dioxide 17 mmol/L (22-30); Chloride 121 mmol/L (98-107); Glucose 117 mg/dL (74-99); Non-African American GFR(CKD) 34 (>60 ml/min/1.73 sqM); Potassium 4.1 mmol/L (3.5-5.1); Sodium 143 mmol/L (137-145)
[2022-04-11] MEDS: CYANOCOBALAMIN 500 MCG TAB PO SCH (08:24)
[2022-04-11] MEDS: clonazePAM 0.5 MG TAB PO SCH ×2 (08:24→08:31)
[2022-04-11] MEDS: QUEtiapine 25 MG TAB PO SCH ×3 (08:24→20:20)
[2022-04-11] MEDS: MULTIVITAMINS, THERA 1 EACH TAB PO SCH (08:24)
[2022-04-11] MEDS: LACTULOSE 20 GM/30 ML CUP PO SCH ×3 (08:24→20:20)
[2022-04-11] MEDS: MAGNESIUM HYDROXIDE 2,400 MG/10 ML CUP PO SCH ×2 (08:24→08:31)
[2022-04-11] MEDS: HEPARIN SODIUM,PORCINE/PF 5,000 UNIT/0.5 ML SYRINGE SQ SCH ×4 (08:24→23:23)
[2022-04-11] MEDS: LACTATED RINGERS 1,000 ML IV SCH ×2 (10:08→23:25)
--- NOTE | 2022-04-11 11:49 | P.PN ---
Subjective Progress Note Date: 04/11/22 Hospital Course: 86-year-old female with history of COPD, GERD, rheumatoid arthritis, celiac disease, chronic urinary retention, lumbar radiculopathy, diverticulosis presenting with altered mental status. She is presented from [facility] on the [place]. In the ED, patient was slightly tachycardic to 104, normal pressure, saturating well on room air, afebrile, normal respiratory rate. Lab work was significant for hyponatremia at 150, bicarb 20, anion gap 13, BUN 95, creatinine 2.57, UA negative for nitrites and trace leukocyte esterase. Tox screen positive for opiates and TCA. Patient was given IV fluids in the ED. per family, patient is at her baseline. Patient also has a PICC line in place for the last year and a half, and had been receiving TPN in the past. No longer receiving TPN. Hypernatremia improved with hypotonic fluids. Renal function has also improved. Mental status improving. Likely discharge back to [facility]. We will do a voiding trial. Subjective: Patient seen and examined at bedside. No acute events overnight. She denies any chest pain, shortness of breath, abdominal pain. Martin catheter still in place. Pertinent positives and negatives as discussed above, a complete review of systems was performed and all other systems are negative. Vitals Signs Reviewed. General: nontoxic, no distress, appears at stated age Derm: warm, dry Head: atraumatic, normocephalic, symmetric Eyes: EOMI, no lid lag, anicteric sclera, pupils equal round reactive to light ENT: Nose and ears atraumatic Neck: No thyromegaly, supple Mouth: no lip lesion, dry membranes moist Cardiovascular: S1S2 reg, no murmur, no edema Lungs: clear to auscultation bilateral, no rhonchi, no rales, no wheeze, no accessory muscle use Abdominal: soft, nontender to palpation, no guarding, no appreciable organomegaly Ext: no gross muscle atrophy, muscle strength muscle strength 3 out of 5 in all 4 extremities, no contractures Neuro: CN II-XII grossly intact Psych: Alert, oriented 2, appropriate affect Assessment and Plan: Acute metabolic encephalopathy-resolved Hypernatremia- resolved Metabolic acidosis, currently non-anion gap Uremia - resolving Acute kidney injury on chronic kidney disease -resolved Acute urinary retention status post Martin catheter Polypharmacy - Encephalopathy Secondary to electrolyte arrangements, uremia, polypharmacy -D5 half-normal switch to LR -Monitor BMP -Monitor urine output and function -Renal ultrasound was a limited exam, no evidence of renal obstruction, left kidney not well-seen, right kidney shows no signs of obstruction. -Hold sedating medication as well as anticholinergic medications -Continue quetiapine -We'll give her 0.5 mg Klonopin daily instead of twice a day -B12, normal -Folic acid pending -TSH normal -Voiding trial Poor nutritional status -Likely secondary to dementia -Patient has a PICC line in place, was on TPN previously -Discontinue PICC line due to increased risk of infection Chronic medical problems: COPD GERD Dementia/mood disorder -Resume home medications DVT ppx: Subcu heparin Code status: DO NOT RESUSCITATE Anticipated discharge place: Pending clinical course, PT/OT Anticipated discharge time: Likely tomorrow Objective - Vital Signs Vital signs: Vital Signs Temp 98.4 F 04/11/22 07:32 Pulse 83 04/11/22 07:32 Resp 16 04/11/22 07:32 BP 131/82 04/11/22 07:32 Pulse Ox 95 04/11/22 07:32 FiO2 Intake & Output 04/10/22 04/11/22 04/11/22 18:59 06:59 18:59 Intake Total 240 1200 Output Total 400 400 Balance -160 1200 -400 Intake: Intake, IV Titration 1200 Amount Dextrose 5%-0.45% NaCl 1, 1200 000 ml @ 100 mls/hr IV . Q10H [facility] Rx#:[id number] Oral 240 Output: Urine 400 400 Uretheral (Martin) 400 Other: Voiding Method Indwelling Catheter Indwelling Catheter - Labs CBC & Chem 7: 04/10/22 07:33 04/11/22 06:45 Labs: Abnormal Lab Results - Last 24 Hours (Table) 04/10/22 04/10/22 04/11/22 Range/Units 07:33 16:13 06:45 Sodium 148 H (137-145) mmol/L Chloride 120 H 121 H (98-107) mmol/L Carbon Dioxide 17 L 17 L (22-30) mmol/L BUN 72 H 56 H (7-17) mg/dL Creatinine 1.50 H 1.39 H (0.52-1.04) mg/dL Glucose 153 H 117 H (74-99) mg/dL Vitamin B12 >1800.0 H (200.0-944.0) pg/mL
[2022-04-11 13:19] VITALS: BMI 18.1
--- NOTE | 2022-04-11 13:26 | XR ---
EXAMINATION TYPE: XR chest 2V DATE OF EXAM: 04/09/2022 COMPARISON: Chest x-ray March 31, 2022 HISTORY: Altered mental status. TECHNIQUE: Frontal and lateral views of the chest are obtained. FINDINGS: There is chronic parenchymal change without suspicious focal air space opacity, pleural ef fusion, or pneumothorax seen. The cardiac silhouette size is stable and within normal limits with at herosclerotic change aortic knob. Slight underlying scoliotic curvature is present. IMPRESSION: No acute cardiopulmonary process. No significant change from prior.
[2022-04-11 19:22] VITALS: RESP 16
[2022-04-12] MEDS: FAMOTIDINE 20 MG TAB PO SCH (05:48)
[2022-04-12] MEDS: CYPROHEPTADINE 4 MG TABLET PO SCH ×2 (05:49→11:06)
[2022-04-12] MEDS: LACTULOSE 20 GM/30 ML CUP PO SCH ×2 (08:11→08:17)
[2022-04-12] MEDS: MAGNESIUM HYDROXIDE 2,400 MG/10 ML CUP PO SCH (08:12)
[2022-04-12] MEDS: QUEtiapine 25 MG TAB PO SCH (08:12)
[2022-04-12] MEDS: CYANOCOBALAMIN 500 MCG TAB PO SCH (08:12)
[2022-04-12] MEDS: clonazePAM 0.5 MG TAB PO SCH (08:12)
[2022-04-12] MEDS: MULTIVITAMINS, THERA 1 EACH TAB PO SCH (08:12)
[2022-04-12] MEDS: HEPARIN SODIUM,PORCINE/PF 5,000 UNIT/0.5 ML SYRINGE SQ SCH (08:12)
--- NOTE | 2022-04-12 09:37 | CDI ---
Documentation Clarification Form Date: 04/12/2022 9:10:08 AM From: Hermelinda Uriostegui RN, CCDS Admit Date: 04/09/2022 2:34:00 PM Patient Name: Brenda Miller Visit Number: [id number] Discharge Date: ATTENTION: The Clinical Documentation Specialists (CDI) and [facility] Coding Staff appreciate your assistance in clarifying documentation. Please respond to the clarification below the line at the bottom and electronically sign. The CDI & [facility] Coding staff will review the response and follow-up if needed. Please note: Queries are made part of the Legal Health Record. If you have any questions, please contact the author of this message via ITS. Dr. Victor Hugo Kelly Unspecified CKD is documented in the H/P and subsequent progress notes. Additional clarification regarding the stage of CKD is requested. History/Risk Factors: COPD, GERD Rheumatoid arthritis, celiac disease, chronic urinary retention. Patients Historical CR 1.3 secondary to nephrosclerosis (per Nephrology progress note on 08/06/2021) Clinical Indicators: 86-year-old female present with altered mental status and abnormal labs. BUN 95, creatinine 2.57, sodium 250. Urine tox screen positive for opiates and TCA. 04/10 BUN 80 Cr 1.50 GFR 27 04/11 BUN 56, Cr 1.39 GFR 34 Treatment: .9 NS 1,000 @999 mls/hr (04/09) Lactated Ringers 1,000 mls @ 75 mls/hr 04/10-04/11 Please clarify the stage of the CKD, if known: [ ] CKD Stage 1 (GFR > 90) [ ] CKD Stage 2 (GFR 60-89) [ ] CKD Stage 3 (GFR 30-59) [ ] CKD Stage 3a (GFR 45-59) [ ] CKD Stage 3b (GFR 30-44) [ ] CKD Stage 4 (GFR 15-29) [ ] Other, please specify [ x ] Unable to determine (Template Last revised: May 2020) MTDD
[2022-04-12] MEDS: LACTATED RINGERS 1,000 ML IV SCH (11:07)
[2022-04-12 13:43] VITALS: BP 103/65; PULSE 54; TEMP 98.3
--- NOTE | 2022-04-12 13:57 | P.DS ---
Providers Date of admission: 04/09/22 14:34 Expected date of discharge: 04/12/22 Attending physician: Luis Kline MD Primary care physician: Stated None Hospital Course: Discharge Diagnosis: Acute metabolic encephalopathy Hypernatremia Metabolic acidosis, currently non-anion gap Uremia Acute kidney injury on chronic kidney disease Acute urinary retention Polypharmacy Poor nutritional status Hospital Course: 86-year-old female with history of COPD, GERD, rheumatoid arthritis, celiac disease, chronic urinary retention, lumbar radiculopathy, diverticulosis presenting with altered mental status. She presented from [facility] on the [place]. In the ED, patient was slightly tachycardic to 104, normal pressure, saturating well on room air, afebrile, normal respiratory rate. Lab work was significant for hyponatremia at 150, bicarb 20, anion gap 13, BUN 95, creatinine 2.57, UA negative for nitrites and trace leukocyte esterase. Tox screen positive for opiates and TCA. Patient was given IV fluids in the ED. Patient also has a PICC line in place for the last year and a half, and had been receiving TPN in the past. No longer receiving TPN. PICC line discontinued. Hypernatremia improved with hypotonic fluids. Renal function has also improved. Mental status improving, now at her baseline. Martin catheter discontinued at discharge, patient voiding. Patient seen and examined at bedside. Vital signs reviewed and stable. General: nontoxic, no distress, appears at stated age Derm: warm, dry Head: atraumatic, normocephalic, symmetric Eyes: EOMI, no lid lag, anicteric sclera, pupils equal round reactive to light ENT: Nose and ears atraumatic Neck: No thyromegaly, supple Mouth: no lip lesion, dry membranes moist Cardiovascular: S1S2 reg, no murmur, no edema Lungs: clear to auscultation bilateral, no rhonchi, no rales, no wheeze, no accessory muscle use Abdominal: soft, nontender to palpation, no guarding, no appreciable organomegaly Ext: no gross muscle atrophy, muscle strength muscle strength 3 out of 5 in all 4 extremities, no contractures Neuro: CN II-XII grossly intact Psych: Alert, oriented 2, appropriate affect A total of 41 minutes of time were spent preparing this complex discharge summary. Patient was discharged on 04/12/22 at 13:49. Patient Condition at Discharge: Stable Plan - Discharge Summary New Discharge Prescriptions: Continue Cyanocobalamin [Vitamin B-12] 500 mcg PO DAILY #30 tab Cyproheptadine HCl [Periactin] 2 mg PO TID@0600,1000,1500 Multivitamins, Thera [Multivitamin (formulary)] 1 tab PO DAILY QUEtiapine [SEROquel] 25 mg PO BID@0900,2100 Magnesium Hydroxide [Milk of Magnesia] 2,400 mg PO DAILY bisacodyL [Dulcolax] 10 mg RECTAL DAILY PRN PRN Reason: bowel movement Lactulose 20 gm PO BID@0900,2100 Ensure Clear 240 ml PO BID@0900,1700 Famotidine [Pepcid] 20 mg PO QAM@0600 Acetaminophen [Tylenol] 650 mg PO Q4H PRN PRN Reason: Mild Pain Or Fever > 100.5 Changed clonazePAM [KlonoPIN] 0.5 mg PO DAILY #0 Discontinued Oxybutynin Chloride [Oxybutynin Chloride ER] 10 mg PO DAILY Discharge Medication List QUEtiapine [SEROquel] 25 mg PO BID@0900,2100 10/24/21 [History] Cyanocobalamin [Vitamin B-12] 500 mcg PO DAILY #30 tab 10/29/21 [Rx] Acetaminophen [Tylenol] 650 mg PO Q4H PRN 04/09/22 [History] Cyproheptadine HCl [Periactin] 2 mg PO TID@0600,1000,1500 04/09/22 [History] Ensure Clear 240 ml PO BID@0900,1700 04/09/22 [History] Famotidine [Pepcid] 20 mg PO QAM@0600 04/09/22 [History] Lactulose 20 gm PO BID@0900,2100 04/09/22 [History] Magnesium Hydroxide [Milk of Magnesia] 2,400 mg PO DAILY 04/09/22 [History] Multivitamins, Thera [Multivitamin (formulary)] 1 tab PO DAILY 04/09/22 [History] bisacodyL [Dulcolax] 10 mg RECTAL DAILY PRN 04/09/22 [History] clonazePAM [KlonoPIN] 0.5 mg PO DAILY #0 04/12/22 [Rx] Follow up Appointment(s)/Referral(s): None,Stated [Primary Care Provider] - 1-2 days Patient Instructions/Handouts: Acute Urinary Retention in Women (GEN), Encephalopathy (GEN) Activity/Diet/Wound Care/Special Instructions: Dietary recommendations : Dysphagia Level 3 Chopped with ground meats Discharge Disposition: TRANSFER TO SNF/ECF
== END 2022-04-12 15:23 | DRG 682 ==
LOC: EC 10:53 → 5NMEDONC 14:34 → 6NMEDSUR 16:44 → 5NMEDONC 16:46
PROVIDERS: ADMIT Family Medicine; ATTEND Family Medicine
DX: N17.9 Acute kidney failure, unspecified (principal); G93.41 Metabolic encephalopathy; E87.0 Hyperosmolality and hypernatremia; E87.1 Hypo-osmolality and hyponatremia; I12.0 Hypertensive chronic kidney disease with stage 5 chronic kidney disease or end stage renal disease; M06.9 Rheumatoid arthritis, unspecified; E86.0 Dehydration; E03.9 Hypothyroidism, unspecified; F03.90 Unspecified dementia, unspecified severity, without behavioral disturbance, psychotic disturbance, mood disturbance, and anxiety; K21.9 Gastro-esophageal reflux disease without esophagitis; K57.90 Diverticulosis of intestine, part unspecified, without perforation or abscess without bleeding; N18.6 End stage renal disease; M54.16 Radiculopathy, lumbar region; J44.9 Chronic obstructive pulmonary disease, unspecified; Z66 Do not resuscitate; R33.8 Other retention of urine; K90.0 Celiac disease; N32.81 Overactive bladder; Z87.440 Personal history of urinary (tract) infections; R00.0 Tachycardia, unspecified; Z85.828 Personal history of other malignant neoplasm of skin; Z88.5 Allergy status to narcotic agent; Z79.899 Other long term (current) drug therapy; Z86.73 Personal history of transient ischemic attack (TIA), and cerebral infarction without residual deficits; Z90.710 Acquired absence of both cervix and uterus; Z87.01 Personal history of pneumonia (recurrent); Z85.528 Personal history of other malignant neoplasm of kidney; Z87.81 Personal history of (healed) traumatic fracture; Z98.42 Cataract extraction status, left eye; Z98.41 Cataract extraction status, right eye; I73.9 Peripheral vascular disease, unspecified
CPT/HCPCS: 36415; 51702; 71046; 76770; 80048; 80053; 80306; 81001; 82607; 82747; 83735; 84443; 84484; 85025; 85610; 85730; 93005; 94760; 96360; 96361; 96372; 99285